=== PATIENT | female | born 1970 | race Caucasian/White ===

== ENCOUNTER → 2019-02-03 13:36 | Outpatient (CLI) | payer MEDICAID, SELFPAY ==
[2019-02-03 12:23] VITALS: BMI 45.1
== END ==
PROVIDERS: Family Provider Internal Medicine; PCP Internal Medicine; Referring Provider Obstetrics & Gynecology; Visit Provider Obstetrics & Gynecology
DX: R52 Pain, unspecified (principal)
CPT/HCPCS: 87086; 87088

== ENCOUNTER → 2019-05-10 15:41 | Outpatient (CLI) | payer MEDICAID, SELFPAY ==
[2019-05-10 13:25] VITALS: BMI 45.1
== END ==
PROVIDERS: Family Provider Internal Medicine; PCP Internal Medicine; Referring Provider Obstetrics & Gynecology; Visit Provider Obstetrics & Gynecology
DX: L02.224 Furuncle of groin (principal)
CPT/HCPCS: 87070; 87077; 87186; 87205

== ENCOUNTER → 2019-06-30 13:37 | Outpatient (CLI) | payer MEDICAID, SELFPAY ==
[2019-06-30 11:44] VITALS: BMI 45.1
== END ==
PROVIDERS: Family Provider Internal Medicine; PCP Internal Medicine; Visit Provider Nurse Practitioner Women's Health
DX: N39.0 Urinary tract infection, site not specified (principal)
CPT/HCPCS: 87086; 87088

== ENCOUNTER 2019-07-28 11:22 | Emergency (ER) | payer MEDICAID, SELFPAY ==
[2019-06-30 11:44] VITALS: BMI 45.1
[2019-07-28 11:22] VITALS: BP 169/98; PULSE 101; RESP 16; TEMP 36.7; O2SAT 100; BMI 43.6
--- NOTE | 2019-07-28 11:43 | CT_ITS ---
STUDY: CT ABDOMEN AND PELVIS WITHOUT CONTRAST REASON FOR EXAM: Female, 49 years old. 10 day history of abdominal pain and diarrhea. RADIATION DOSAGE (If Supplied By Facility): CTDIvol = ( 30.22 ) mGy, DLP = ( 1464.69 ) mGycm TECHNIQUE: Transaxial images were obtained from the dome of the diaphragm to the symphysis pubis without oral contrast, and without intravenous contrast. Sagittal and coronal images were reconstructed. Individualized dose optimization techniques were used for this CT. COMPARISON: Comparison is made with prior study dated November 09, 2015. FINDINGS: The visualized lung bases are unremarkable. The visualized portions of the heart are within normal limits. Normal liver. The patient is status post cholecystectomy. Normal spleen. Normal pancreas. Normal bilateral adrenal glands. Normal right kidney. Normal left kidney. Normal visualized stomach. Normal small intestine. Normal colon. The patient is status post appendectomy. Normal abdominal aorta. Normal inferior vena cava. There is borderline retroperitoneal lymphadenopathy with enlarged nodes no greater than 10mm in the short axis diameter. Normal urinary bladder. There is absence of the uterus consistent with a prior hysterectomy. Normal abdominal wall. There are mild degenerative changes of the visualized lumbar spine. CT/Abdomen/Pelvis without Cont IMPRESSION: Status post appendectomy and cholecystectomy. No acute abnormality is seen. Electronically Signed: Artur Tong, at 13:10 EST , Service support ,
--- NOTE | 2019-07-28 11:43 | EKG12_ITS ---
Test Reason : ABD PAIN Blood Pressure : / mmHG Vent. Rate : 088 BPM Atrial Rate : 088 BPM P-R Int : 150 ms QRS Dur : 088 ms QT Int : 378 ms P-R-T Axes : 058 000 048 degrees QTc Int : 457 ms Normal sinus rhythm Normal ECG Confirmed by CELIA SUTTON, AXEL ([id number]), editor in chief JUSTICE DONALD ([id number]) on 08/02/2019 11:44:35 AM Referred By: ANGELA Confirmed By:FLAQUITO YANG MD
--- NOTE | 2019-07-28 11:46 | ED.VIS.GEN ---
History of Present Illness Chief Complaint: Abd Pain Informant: Patient Onset: Weeks Maximum Severity: Mild Narrative: Patient complains of epigastric pain intermittently for 2 weeks, she has had no nausea or vomiting no diarrhea no fever she has history of cholecystectomy, prior bladder sling 2 years ago, recently she is developed a harsh cough that is exacerbated epigastric pain and she presents for evaluation she has no other GI history specifically no history of hepatitis gastritis ulcers bowel blockages colitis UTI or kidney stones Past Medical History - Allergies and Home Meds Allergies/Adverse Reactions: Allergies Iodinated Contrast Media [Iodinated Contrast Media - IV Dye] Allergy (Verified 06/30/19 11:33) Anaphylaxis tabatha Allergy (Verified 06/30/19 11:33) Food Allergy Sulfa (Sulfonamide Antibiotics) Allergy (Verified 06/30/19 11:33) Itching venom-honey bee [bee venom (honey bee)] Allergy (Verified 06/30/19 11:33) Shortness of breath ofloxacin [From Floxin] Adverse Reaction (Verified 06/30/19 11:33) Other Primary Care Physician: Renee Giordano MD [Primary Care Provider] - Past Medical History: - Smoking Status: Current every day smoker Review of Systems ROS: - Fluids as above General: Denies: Chills, Fever, Sweats Eyes: Denies: Visual changes - bilaterally, Diplopia ENT: Denies: Rhinorrhea, Sore throat Cardiovascular: Denies: Chest pain, Palpitations Respiratory: Reports: Cough. Denies: Dyspnea, Dyspnea on exertion Gastrointestinal: Reports: Abdominal pain. Denies: Nausea, Vomiting, Diarrhea, Melena, Hematochezia Genitourinary: Denies: Dysuria, Hematuria, Frequency Musculoskeletal: Denies: Back pain, Extremity Pain Skin: Denies: Rash, Wounds Neurological: Denies: Headache, Weakness, Numbness Physical Exam Vital Signs/Narrative: Vital Signs Temp Pulse Resp BP Pulse Ox 07/28/19 11:22 98.1 F 101 H 16 169/98 H 100 General: Well nourished, Well developed, No Acute Distress Head: Normocephalic, Atraumatic Eyes: Perrl, EOMI ENT: Moist mucous membranes, No rhinorrhea Neck: Supple, Nontender Cardiovascular: Regular rate, Regular rhythm, No murmurs Respiratory: No distress, CTA bilaterally, Chest nontender Abdomen: Soft, Nontender, Nondistended, Normal bowel sounds, - - Is a nonspecific discomfort to the epigastric area of the abdomen is obese there is no rebound guarding organomegaly is apparent she has had this pain intermittently for 2 weeks and apparently is worse with the coughing spells she is currently not coughing her vitals and pulse ox's are normal Back: Nontender, Normal Inspection Extremities: Nontender, No edema Skin: Normal color, No rash Neurological: Alert, Oriented x3, Cranial nerves II-XII grossly intact, Normal Strength, Normal Sensation Psychological: Normal affect, Normal Mood Diagnostic/Tx/Re-eval - Medical Decision Making Given all of the above screening labs are obtained x-rays CT Patient's ED evaluation including labs UA CT abdomen pelvis chest x-ray all negative EKG showed sinus rhythm rate 88 no acute injury pattern appreciated In the above the patient she has had symptoms for some time at this time she is comfort discharge home follow with outpatient providers she will use Tylenol for her pain bland diet and return for change in symptoms she has no cough the ED will make sure she has an inhaler to use that should help her URI symptoms Stable home Impression epigastric pain for about 2 weeks etiology unclear, cough ED Disposition - Plan for ED Patient: Diagnosis: Abdominal pain Instructions: ABDOMINAL PAIN, Unknown Cause, (Female) Prescriptions: Albuterol Inhaler [Ventolin Hfa] 1 - 2 puff INHALATION Q4H PRN PRN #1 inhaler PRN Reason: Wheezing Prescription Printed Referrals: Renee Giordano MD [Primary Care Provider] -
[2019-07-28] MEDS: 0.9% Normal Saline 1,000 ML 1000 ML IV (12:20)
[2019-07-28] MEDS: morphine 8 MG/ML Syringe IV (12:21)
[2019-07-28] MEDS: Mag Hydrox/Al Hydrox/Simeth 30 ML UDC PO (12:21)
[2019-07-28] MEDS: Ondansetron 4 MG/2 ML Vial IV (12:22)
[2019-07-28 12:26] LABS: Bacteria 0 SEEN /hpf (None Seen); Mucous, Urine 0 SEEN /hpf (<or=2+); Red Blood Cells-Urine 0 SEEN /hpf (0-5)
[2019-07-28 12:30] LABS: Color, Urine Yellow (Yellow); Glucose, Dipstick Normal (Normal); Ketone-Dipstick Negative (Negative); Leukocyte Esterase-Dipstick 25 /ul (Negative); Nitrite-Dipstick Negative (Negative); Occult Blood-Urine Negative /ul (Negative); Protein-Dipstick Negative (Negative); Specific Gravity, Urine 1.005 (1.002-1.030); Urine Bilirubin Dipstick Negative (Negative); Urine Clarity Clear (Clear); Urine Urobilinogen Normal (Normal)
--- NOTE | 2019-07-28 12:30 | RAD_ITS ---
STUDY: X-RAY CHEST REASON FOR EXAM: Female, 49 years old. Persistent cough. TECHNIQUE: PA and lateral views of the chest. COMPARISON: Comparison is made with prior study dated November 09, 2015. FINDINGS: The lungs are clear and expanded. There is no demonstrated pleural abnormality. Normal size heart. Normal mediastinum and maria g. Normal visualized pulmonary arteries. There is atherosclerotic tortuosity of the aortic arch and descending thoracic aorta. There are diffuse degenerative changes of the visualized thoracic spine. Normal visualized ribs, clavicles, and shoulders. There is no demonstrated abnormality of the visualized soft tissue structures of the upper abdomen. RAD/Chest PA and Lateral IMPRESSION: No acute abnormality is seen. Electronically Signed: Artur Tong, at 13:01 EST , Service support ,
[2019-07-28 12:35] LABS: Absolute Lymphocyte Count 3.45 X10^3/uL (0.83-4.51); Absolute Neutrophil Count 5.8 X10^3/uL (2.0-7.7); Basophil# 0.05 X10^3/uL; Basophil% 0.5 % (0-1); Eosinophil# 0.29 X10^3/uL; Eosinophils% 2.7 % (0-5); Hematocrit 46.6 % (37-47); Hemoglobin 15.3 g/dL (12.0-15.0); Lymphocyte # 3.45 X10^3/ul (4.0); Lymphocyte % 32.3 % (19-41); Mean Corp Hgb Conc 32.8 g/dL (32-36); Mean Corpuscular Hgb 30.5 pg (27.0-32.0); Monocyte# 0.99 X10^3/uL; Monocyte% 9.3 % (0-10); NRBC Flagged by Analyzer 0 % (0-5); Neutrophil # 5.82 X10^3/uL (2.7-7.7); Neutrophil % 54.5 % (47-70); Platelet Count 340 K/mm3 (150-450); RBC Distribution Width SD 41.5 fl (35.1-43.9); Red Blood Count 5.01 M/mm3 (4.2-5.4); White Blood Count 10.7 K/mm3 (4.4-11.0)
[2019-07-28 12:44] LABS: Squamous Epithelial Cells - UA 0-5 SEEN /hpf (5-10); White Blood Cells 0-5 SEEN /hpf (0-5)
[2019-07-28 13:19] LABS: ALB/GLOB Ratio 0.9 RATIO (0.9-2.4); AST(SGOT) 21 U/L (15-37); Alanine Aminotransfer ALT/SGPT 29 U/L (13-56); Albumin, Serum 3.5 g/dL (3.2-5.0); Alkaline Phosphatase 159 U/L (45-117); Anion Gap 7 (5-15); BUN 9 mg/dL (7-18); BUN/Creat Ratio 13.2 RATIO (10-20); Calcium,Total 8.9 mg/dL (8.5-10.1); Chloride 106 mmol/L (98-107); Creatinine, Serum 0.68 mg/dL (0.55-1.02); EST Glomerular Filtration Rate 97 mL/min (>60); Est Glom Filt Rate - Afr Amer 118 mL/min (>60); Estimated Creatinine Clearance 86.42 ml/min; Globulin 4.1 g/dL (2.2-4.2); Glucose 92 mg/dL (74-106); Lipase 118 U/L (73-393); Potassium 4.4 mmol/L (3.5-5.1); Protein, Total 7.6 g/dL (6.4-8.2); Sodium Level 139 mmol/L (136-145)
== END 2019-07-28 14:14 | disposition home or self-care (01) ==
LOC: ED 11:42
PROVIDERS: Emergency Provider Emergency Medicine; Family Provider Internal Medicine; PCP Internal Medicine
DX: R10.13 Epigastric pain (principal); R05 Cough; F17.200 Nicotine dependence, unspecified, uncomplicated
CPT/HCPCS: 71046; 74176; 80053; 81001; 83690; 85025; 93005; 96361; 96374; 96375; 99284; J7030; A4216; J2405

== ENCOUNTER → 2020-05-30 13:03 | Outpatient (CLI) | payer MEDICAID, SELFPAY ==
[2020-05-30 09:02] VITALS: BMI 40.9
== END ==
PROVIDERS: PCP Internal Medicine; Visit Provider Nurse Practitioner Women's Health
DX: N89.8 Other specified noninflammatory disorders of vagina (principal)
CPT/HCPCS: 87070; 87205

== ENCOUNTER → 2023-05-15 | Outpatient (CLI) | payer MEDICAID, SELFPAY ==
--- NOTE | 2023-05-15 09:29 | US_ITS ---
STUDY: ULTRASOUND BREAST - RIGHT REASON FOR EXAM: Female, 53 years old. Palpable right axillary lump. TECHNIQUE: Axial and longitudinal images of the RIGHT breast were performed with a high resolution ultrasound transducer. # OF IMAGES: 5 COMPARISON: Comparison is made with prior mammogram done earlier today. FINDINGS: RIGHT Breast: The right axilla was examined with ultrasound. There is a 9 mm x 6 mm x 5 mm benign-appearing lymph node. US/Breast Limited Unilateral IMPRESSION: 9 mm x 6 mm x 5 mm benign appearing lymph node in the right axilla. ASSESSMENT CATEGORY: BIRADS Category 2: Benign. A letter regarding these results will be sent to the patient by the facility within 30 days. Electronically Signed: Artur Tong MD at 15:08 EDT ,
--- NOTE | 2023-05-15 09:29 | BI_ITS ---
MAMMOGRAPHY - BILATERAL DIAGNOSTIC REASON FOR EXAM: Female, 53 years old. Right axillary lump for many years. PERTINENT HISTORY: Non-contributory. TECHNIQUE: Digital bilateral breast tiffanie (3D mammographic acquisition) in the CC and MLO projections. 2-D mediolateral oblique (MLO) and craniocaudad (CC) views of both breasts were obtained. CAD: Full Field Digital Mammography with Computer Added Detection was performed. COMPARISON: Comparison is made with prior outside examination dated October 04, 2020. FINDINGS: Breast Composition: There are scattered areas of fibroglandular density. There are no dominant masses or suspicious calcifications. Small bilateral fat-containing axillary lymph nodes. No other significant abnormalities are identified. There has been no significant change since the prior study. BI/DIAG MAMM W/CAD, BILAT IMPRESSION: Stable bilateral diagnostic mammogram. With the patient''s history of a palpable lump in the right axillary region, correlation with ultrasound is recommended. ASSESSMENT CATEGORY: BIRADS Category 0: Incomplete. Need additional imaging evaluation. A letter regarding these results will be sent to the patient by the facility within 30 days. Approximately 10% of breast cancers are not detected by mammography. A normal mammogram should not delay biopsy of a clinically suspicious abnormality. Electronically Signed: Artur Tong MD at 10:42 EDT ,
== END | disposition home or self-care (01) ==
PROVIDERS: PCP Internal Medicine; Referring Provider Advanced Practice Midwife; Visit Provider Advanced Practice Midwife
DX: N63.10 Unspecified lump in the right breast, unspecified quadrant (principal)
CPT/HCPCS: 77062; 76642; 77066; G0279

== ENCOUNTER → 2023-06-20 | Outpatient (CLI) | payer MEDICAID, SELFPAY | END | disposition home or self-care (01) | LOC: LABSPEC 13:21 | PROVIDERS: PCP Internal Medicine; Visit Provider Obstetrics & Gynecology | DX: N89.8 Other specified noninflammatory disorders of vagina (principal) | CPT/HCPCS: 87070; 87205 ==

== ENCOUNTER 2024-04-06 17:09 | Emergency (ER) | payer MEDICAID, SELFPAY ==
[2024-04-06 17:10] VITALS: BP 139/88; PULSE 93; RESP 17; TEMP 36.1; O2SAT 96; BMI 47.7
--- NOTE | 2024-04-06 17:44 | ED.VIS.LOWEX ---
HPI History of Present Illness HPI Narrative: Patient presents with injury to her right knee and right ankle that occurred yesterday. Patient states she twisted her knee and began to fall. Patient states she inverted her right ankle. Patient states she was able to catch herself before she fell. Patient states she had x-rays done yesterday which were negative. Patient states that today she noted some numbness and tingling to her third, fourth, and fifth toes. Patient states she contacted her primary care physician who told her to come to the emergency department for this. Patient denies any new trauma or injury. Patient does admit to some swelling over her right knee and right ankle. Chief Complaint: Lower Extremity Injury Informant: patient Occured/Mechanism Comment: Twisted right knee and inverted right ankle Onset/Context/Timing Onset: Yesterday Context: Sudden Onset Timing: Continuous Quality of Pain: Sharp and Throbbing Worsened by: Movement Relieved by: Nothing Associated Symptoms Associated Symptoms: Positive for Parasthesia; Negative for Weakness or Loss of [facility]ion [facility] History Bipolar 1 disorder Arthritis Asthma Migraines Home Medications ?Medication ?Instructions ?Recorded ?Last Taken ?Type albuterol sulfate 90 mcg/actuation 1 - 2 puff inhalation Q4H PRN PRN 05/26/15 Unknown History aerosol inhaler Sob &/Or Wheezing alprazolam 0.5 mg tablet 0.5 mg PO BID PRN PRN Anxiety 05/26/15 06/01/15 05:00 History lansoprazole 30 mg capsule,delayed 30 mg PO DAILY 05/26/15 06/01/15 05:00 History release montelukast 10 mg tablet 10 mg PO DAILY 05/26/15 Unknown History sumatriptan succinate 50 mg tablet 50 mg PO PRN PRN MIGRAINES 05/26/15 Unknown History dicyclomine 10 mg capsule 10 mg PO . Q4-6H PRN Abdominal 11/09/15 Unknown Rx Pain #20 caps ondansetron HCl 8 mg tablet 8 mg PO Q8H PRN PRN Nausea #15 tabs 11/09/15 Unknown Rx zolpidem 10 mg tablet (Ambien) 10 mg PO QHS 02/03/19 Unknown History carbamazepine 200 mg 200 mg PO DAILY 07/28/19 Unknown History capsule,extended release [id number] cyclobenzaprine 10 mg tablet 10 mg PO TID PRN PRN Muscle Spasm 07/28/19 Unknown History loratadine-pseudoephedrine ER 10 1 tab PO DAILY 07/28/19 Unknown History mg-240 mg tablet,extended [id number] naratriptan 2.5 mg tablet 2.5 mg PO X1 PRN Migraine Symptoms 07/28/19 Unknown History clotrimazole-betamethasone 1 1 applic topical BID 2 weeks #45 05/30/20 Unknown Rx %-0.05 % topical cream grams vszkmebrvl-jkcefluslgliz-enviwmzf 1 tab PO Q4H PRN PRN MIGRAINES 09/27/20 Unknown History 50 mg-325 mg-40 mg tablet fremanezumab-vfrm 225 mg/1.5 mL 225 mg subcut QMONTH 09/27/20 Unknown History subcutaneous auto-injector (Ajovy) nystatin 100,000 unit/gram topical 1 applic topical DAILY #30 grams 04/17/23 Unknown Rx powder conjugated estrogens 0.625 mg/gram 0.625 mg vaginal DAILY #30 grams 06/20/23 Unknown Rx vaginal cream (Premarin) Allergy/AdvReac Type Severity Reaction Status Date / Time Iodinated Contrast Media Allergy Anaphylaxis Verified 04/06/24 17:10 (Iodinated Contrast Media - IV Dye) tabatha Allergy Food Verified 04/06/24 17:10 Allergy Sulfa (Sulfonamide Allergy Itching Verified 04/06/24 17:10 Antibiotics) venom-honey bee (bee venom Allergy Shortness Verified 04/06/24 17:10 (honey bee)) of breath ofloxacin (From Floxin) AdvReac Other Verified 04/06/24 17:10 Family History Grandmother Cancer Heart disease Mother CVA (cerebral vascular accident) Bowel cancer Brother Crohns disease Asthma Surgical History History of carpal tunnel surgery of right wrist bladder sling H/O hernia repair History of cholecystectomy History of LAVH History of tonsillectomy Social History Smoking Status: Current every day smoker tobacco type: cigarettes alcohol intake: current substance use type: marijuana caffeine: Yes what type of physical activity do you participate in: none seatbelt use: always do you feel safe at home: Yes additional social history: Alex- [employer] 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 ROS ED Constitutional Constitutional ED: Denies chills or fever(s) Eyes Eyes: Denies blurry vision or change in vision ENT ENT ED: Denies rhinorrhea or sore throat Cardiovascular Cardiovascular: Denies chest pain or palpitations Respiratory/Chest Respiratory/Chest: Denies cough or dyspnea Gastrointestinal Gastrointestinal: Reports nausea and vomiting Genitourinary Genitourinary ED: Denies dysuria or hematuria Musculoskeletal Musculoskeletal: Reports back pain and neck pain Integumentary Denies abscess or rash Neurologic Neurologic: Reports headache(s) and paresthesias RLE (Third, fourth, and fifth toes); Denies weakness Allergic/Immunologic Allergic/Immunologic ED: Denies mouth swelling or urticaria EXAM Physical Exam Const Vital Signs: 04/06/24 17:10 Temperature 97 F L Temperature Source Temporal Pulse Rate 93 Respiratory Rate 17 Blood Pressure 139/88 H Blood Pressure Mean 105 Pulse Ox 96 Oxygen Delivery Method Room Air Positive well nourished and well developed General Appearance ED: well developed and NAD HEENT Reports moist mucous membranes Neck full ROM and supple Extremity Extremity Narrative: There is tenderness over the lateral aspect of the right knee and right ankle. There is some mild edema. There is no deformity noted. Range of motion was slightly limited in all motions of the right knee and right ankle secondary to pain. Pedal pulses are equal bilaterally. Sensation was slightly decreased to light touch in the third, fourth, fifth toes. Capillary refills less than 2 seconds in all digits. Strength is 5/5 in flexion extension of all digits. Neuro oriented x3, CN's II-XII intact bilaterally, moves all extremities and no sensory deficits noted Sensorium / Orientation: alert Motor Exam: strength 5/5 throughout Psych mental status grossly normal MDM MDM MDM Narrative Medical decision making narrative: Differential diagnosis includes neuropathy from swelling, electrolyte abnormality, anemia, and paresthesias. CBC will be obtained to assess for leukocytosis and anemia. Basic metabolic profile will be obtained to assess for electrolyte abnormality and renal function. Lab Data Attestation: I reviewed the patient's lab results. Lab results narrative: CBC was reviewed. There is a mild leukocytosis of 15.1. The remainder is within normal limits. Basic metabolic profile was reviewed and was within normal limits. Labs: Laboratory Results - last 24 hr 04/06/24 18:26 WBC 15.1 H RBC 4.80 Hgb 14.3 Hct 44.0 MCV 91.7 MCH 29.8 MCHC 32.5 RDW Std Deviation 43.7 RDW Coeff of Maribel 12.9 Plt Count 334 MPV 8.4 Immature Gran % (Auto) 0.500 Neut % (Auto) 61.2 Lymph % (Auto) 28.8 Larue % (Auto) 6.7 Eos % (Auto) 2.4 Baso % (Auto) 0.4 Absolute Neuts (auto) 9.2 H Absolute Lymphs (auto) 4.34 Nucleated RBC % 0 Sodium 139 Potassium 4.1 Chloride 105 Carbon Dioxide 29.0 Anion Gap 5 BUN 12 Creatinine 0.89 Estim Creat Clear Calc 95.03 Est GFR (MDRD) Af Amer 85 Est GFR (MDRD) Non-Af 70 BUN/Creatinine Ratio 13.5 Glucose 95 Calcium 9.2 Treatment and Re-Evaluation Narrative: Patient was advised of her findings. Patient was advised that her paresthesias are most likely from the swelling and bruising. Patient was instructed to ice and elevate her right foot. Patient was instructed to follow-up with her primary care physician in 5 to 7 days for further evaluation. Patient understood and was agreeable with the plan. All questions were answered. Discharge Plan Triage Chief Complaint: Lower Extremity Injury ED Provider: Ford Lund Dx/Rx/DC Orders Clinical Impression: Paresthesias, Right ankle sprain, Right knee sprain Instructions: ED Paraesthesias Prescriptions: No Action zolpidem [Ambien] 10 mg tablet 10 mg PO QHS clotrimazole-betamethasone 1-0.05 % cream 1 applic TOPICAL BID 14 Days Qty: 45 1RF Ajovy Autoinjector 225 mg/1.5 mL auto-injector 225 mg SC QMONTH Premarin 0.625 mg/gram cream 0.625 mg vaginal DAILY Qty: 30 6RF Rx Instructions: apply a thin layer under urethra 2 to 3 times a week. nystatin 100,000 unit/gram powder 1 applic topical DAILY Qty: 30 0RF alprazolam 0.5 MG tablet 0.5 mg PO BID PRN PRN (Reason: Anxiety) Patient Comments: anxiety lansoprazole 30 MG capsule 30 mg PO DAILY Patient Comments: gerd montelukast 10 MG tablet 10 mg PO DAILY Patient Comments: allergies albuterol sulfate 1 INHALER inhaler 1 - 2 puff INHALATION Q4H PRN PRN (Reason: Sob &/Or Wheezing) Patient Comments: breathing sumatriptan succinate 50 MG tablet 50 mg PO PRN PRN (Reason: MIGRAINES) Patient Comments: MIGRAINES gsvuyhhtop-qaregsexnlzlt-fupl 50-325-40 mg tablet 1 tab PO Q4H PRN PRN (Reason: MIGRAINES) Patient Comments: MIGRAINES ondansetron HCl 8 MG tablet 8 mg PO Q8H PRN PRN (Reason: Nausea) Qty: 15 0RF dicyclomine 10 MG capsule 10 mg PO . Q4-6H PRN (Reason: Abdominal Pain) Qty: 20 0RF cyclobenzaprine 10 MG tablet 10 mg PO TID PRN PRN (Reason: Muscle Spasm) loratadine-pseudoephedrine 0 tablet 1 tab PO DAILY naratriptan 2.5 MG tablet 2.5 mg PO X1 PRN (Reason: Migraine Symptoms) carbamazepine 200 MG capsule, ER multiphase 12 hr 200 mg PO DAILY Primary Care Provider: Renee Giordano Referrals: Renee Giordano MD [Primary Care Provider] - 5-7 Days Print Language: Singaporean Disposition Disposition: Home, Self Care
[2024-04-06 18:37] LABS: Absolute Lymphocyte Count 4.34 X10^3/uL (0.83-4.51); Absolute Neutrophil Count 9.2 X10^3/uL (2.0-7.7); Basophil# 0.06 X10^3/uL; Basophil% 0.4 % (0-1); Eosinophil# 0.36 X10^3/uL; Eosinophils% 2.4 % (0-5); Hemoglobin 14.3 g/dL (12.0-15.0); Lymphocyte # 4.34 X10^3/ul (0.83-4.51); Lymphocyte % 28.8 % (19-41); Mean Corp Hgb Conc 32.5 g/dL (32-36); Mean Corpuscular Hgb 29.8 pg (27.0-32.0); Mean Corpuscular Volume 91.7 fL (81-99); Mean Platelet Vol. 8.4 fl (6.2-12.0); Monocyte# 1.01 X10^3/uL; Monocyte% 6.7 % (0-10); NRBC Flagged by Analyzer 0 % (0-5); Neutrophil # 9.24 X10^3/uL (2.7-7.7); Neutrophil % 61.2 % (47-70); POSITIVE MORPHOLOGY YES; Platelet Count 334 K/mm3 (150-450); RBC Distribution Width CV 12.9 % (11.6-14.6); RBC Distribution Width SD 43.7 fl (35.1-43.9); White Blood Count 15.1 K/mm3 (4.4-11.0)
[2024-04-06 18:39] LABS: Differential Indicated SCAN CRITERIA MET
[2024-04-06 18:58] LABS: Anion Gap 5 (5-15); BUN 12 mg/dL (7-18); BUN/Creat Ratio 13.5 RATIO (10-20); Calcium,Total 9.2 mg/dL (8.5-10.1); Chloride 105 mmol/L (98-107); Creatinine, Serum 0.89 mg/dL (0.55-1.02); EST Glomerular Filtration Rate 70 mL/min (>60); Est Glom Filt Rate - Afr Amer 85 mL/min (>60); Estimated Creatinine Clearance 95.03 ml/min; Glucose 95 mg/dL (74-106); Potassium 4.1 mmol/L (3.5-5.1); Sodium Level 139 mmol/L (136-145)
[2024-04-06 19:09] VITALS: BP 120/68
[2024-04-06 19:13] LABS: Differential Comment SCANNED
[2024-04-06 19:38] VITALS: BP 118/71; PULSE 74; RESP 18; TEMP 36.4; O2SAT 96
== END 2024-04-06 19:38 | disposition home or self-care (01) ==
PROVIDERS: Emergency Provider Emergency Medicine; PCP Internal Medicine; Visit Provider Emergency Medicine
DX: S93.401A Sprain of unspecified ligament of right ankle, initial encounter (principal); F31.9 Bipolar disorder, unspecified; S83.91XA Sprain of unspecified site of right knee, initial encounter; F12.90 Cannabis use, unspecified, uncomplicated; F17.210 Nicotine dependence, cigarettes, uncomplicated; R20.2 Paresthesia of skin; X58.XXXA Exposure to other specified factors, initial encounter
CPT/HCPCS: 80048; 85025; 99282; A4216

== ENCOUNTER → 2024-04-28 | Outpatient (CLI) | payer MEDICAID, SELFPAY | END | disposition home or self-care (01) | PROVIDERS: PCP Internal Medicine; Referring Provider Nurse Practitioner Family; Visit Provider Nurse Practitioner Family | DX: B37.2 Candidiasis of skin and nail (principal) | CPT/HCPCS: 87070; 87205 ==

== ENCOUNTER 2024-06-05 11:23 | Emergency (ER) | payer MEDICAID, SELFPAY ==
[2024-06-05 11:24] VITALS: BP 134/86; PULSE 89; RESP 18; TEMP 36.6; O2SAT 98; BMI 45.8
--- NOTE | 2024-06-05 11:29 | EX.ED.GENINJ ---
HPI History of Present Illness Chief Complaint: Nausea/Vomiting PFSH PFSH Medical History Bipolar 1 disorder Arthritis Asthma Migraines Home Medications ?Medication ?Instructions ?Recorded ?Last Taken ?Type albuterol sulfate 90 mcg/actuation 1 - 2 puff inhalation Q4H PRN PRN 05/26/15 Unknown History aerosol inhaler Sob &/Or Wheezing alprazolam 0.5 mg tablet 0.5 mg PO BID PRN PRN Anxiety 05/26/15 06/01/15 05:00 History lansoprazole 30 mg capsule,delayed 30 mg PO DAILY 05/26/15 06/01/15 05:00 History release montelukast 10 mg tablet 10 mg PO DAILY 05/26/15 Unknown History dicyclomine 10 mg capsule 10 mg PO . Q4-6H PRN Abdominal 11/09/15 Unknown Rx Pain #20 caps ondansetron HCl 8 mg tablet 8 mg PO Q8H PRN PRN Nausea #15 tabs 11/09/15 Unknown Rx zolpidem 10 mg tablet (Ambien) 10 mg PO QHS 02/03/19 Unknown History carbamazepine 200 mg 200 mg PO DAILY 07/28/19 Unknown History capsule,extended release [id number] cyclobenzaprine 10 mg tablet 10 mg PO TID PRN PRN Muscle Spasm 07/28/19 Unknown History loratadine-pseudoephedrine ER 10 1 tab PO DAILY 07/28/19 Unknown History mg-240 mg tablet,extended [id number] naratriptan 2.5 mg tablet 2.5 mg PO X1 PRN Migraine Symptoms 07/28/19 Unknown History upcuebwuot-trygvsxhlqsem-uzxgogmi 1 tab PO Q4H PRN PRN MIGRAINES 09/27/20 Unknown History 50 mg-325 mg-40 mg tablet fremanezumab-vfrm 225 mg/1.5 mL 225 mg subcut QMONTH 09/27/20 Unknown History subcutaneous auto-injector (Ajovy) estradiol 0.01% (0.1 mg/gram) See Rx Instructions vaginal DAILY 05/03/24 Unknown Rx vaginal cream #42.5 grams clotrimazole-betamethasone 1 1 applic topical BID 2 weeks #45 06/02/24 Unknown Rx %-0.05 % topical cream grams fluconazole 150 mg tablet 150 mg PO .COMPLEX #2 tabs 06/02/24 Unknown Rx Allergy/AdvReac Type Severity Reaction Status Date / Time Iodinated Contrast Media Allergy Anaphylaxis Verified 06/05/24 11:24 (Iodinated Contrast Media - IV Dye) tabatha Allergy Food Verified 06/05/24 11:24 Allergy Sulfa (Sulfonamide Allergy Itching Verified 06/05/24 11:24 Antibiotics) venom-honey bee (bee venom Allergy Shortness Verified 06/05/24 11:24 (honey bee)) of breath ofloxacin (From Floxin) AdvReac Other Verified 06/05/24 11:24 Family History Grandmother Cancer Heart disease Mother CVA (cerebral vascular accident) Bowel cancer Brother Crohns disease Asthma Surgical History History of carpal tunnel surgery of right wrist bladder sling H/O hernia repair History of cholecystectomy History of LAVH History of tonsillectomy Social History sexually active: Yes Smoking Status: Current every day smoker tobacco type: cigarettes alcohol intake: current substance use type: marijuana caffeine: Yes what type of physical activity do you participate in: none seatbelt use: always do you feel safe at home: Yes additional social history: Ester King Patient babysits EXAM Physical Exam Const Vital Signs: 06/05/24 11:24 Temperature 97.8 F Temperature Source Oral Pulse Rate 89 Respiratory Rate 18 Blood Pressure 134/86 H Blood Pressure Mean 102 Pulse Ox 98 Oxygen Delivery Method Room Air MDM MDM MDM Narrative Medical decision making narrative: HISTORY OF PRESENT ILLNESS: 54-year-old female presents with headache. Notes migraine that started 7 days ago. Notes she started 5 days ago. Patient denies sudden onset or thunderclap headache, denies maximal intensity within 1 minute, vomiting, neck pain, stiffness, changes in vision, fever, history malignancy, syncope, or seizures associated with headache. She also endorses mid abdominal pain and endorses history of gallbladder surgery. Notes she did drink alcohol 3 days ago despite having abdominal pain nausea and vomiting. No she had 1 drink with her child. Denies diarrhea or constipation. Denies melena or hematochezia. Does note increased urination and a dark color to her urine. She denies chest pain or shortness of breath. Denies focal weakness. Denies falls or other trauma. REVIEW OF SYSTEMS: Pertinent positives: Headache nausea vomiting Pertinent negatives: Focal weakness, neck pain fever recent sick contact PHYSICAL EXAM: Nursing triage notes reviewed, Vital signs reviewed Constitutional: please see mdm HENT: MMM Eyes: Pupils equal round and reactive to light, Extraocular muscles intact Neck: No stridor, no JVD, full neck ROM Lungs: Clear to auscultation, No wheezing or rales. No increased work of breathing, no conversational dyspnea, no accessory muscle use, no nasal flaring. No respiratory distress noted Heart: Regular rate and rhythm, No murmurs, No rubs and No gallops, 2+ distal pulses (radial, femoral, posterior tibial) in all extremities Abdomen: Soft, diffuse tenderness but no distention, rigidity, rebound or guarding, no obvious peritoneal signs, no palpable pulsatile abdominal masses, no auscultated abdominal bruit : No CVAT Extremities: No edema Neuro: Alert and oriented x3, neuro exam at baseline, cranial nerves II through XII are intact. No pain with extraocular muscle movement. There is negative test of skew. 5 of 5 strength in upper and lower extremities in flexion extension. Intact sensation to light touch in upper and lower extremity dermatomes. No truncal or extremity ataxia. No dysdiadochokinesia. Normal gait. 2+ reflexes in upper and lower extremities. No meningeal signs. Negative Babinski. NIH of 0. Skin: No rash or lesions noted MEDICAL DECISION MAKING: Chief Complaint: Headache, nausea vomiting External records reviewed: Prior imaging studies reviewed: Recent [facility] imaging of the brain Factors affecting care: Bipolar, GERD, Social determinants of health: History of mental health disorder History obtained from others: Spouse Consults: none [facility] Narrative: Patient is hemodynamically stable, afebrile and nontoxic-appearing. Neurologic exam nonfocal, abdominal exam with diffuse tenderness I considered the following differential diagnosis: ICH, migraine, pancreatitis, hepatobiliary pathology, perforation, obstruction, UTI I obtained a broad lab and imaging workup to further elucidate the etiology of the patient's complaints. I initially treated the patient symptoms with IV Reglan and Decadron. Withheld Toradol this time and lieu of CT scan result. I also obtain labs to assess the patient's abdominal complaints and also obtained a Noncon CT scan of the abdomen pelvis given patient's contrast allergy to assess for surgical pathology in the abdomen. ALL IMAGES (IF OBTAINED) HAVE BEEN PERSONALLY REVIEWED AND INTERPRETED BY MYSELF. EKG with normal sinus rhythm, normal axis, normal intervals, no STEMI CT scan of the brain showed no evidence of ICH CT scan abdomen pelvis no evidence of intra-abdominal pathology CBC with leukocytosis suggestive of systemic summation but no anemia or thrombocytopenia CMP without evidence of acute kidney injury, significant electrolyte abnormality, anion gap to suggest end organ hypo-perfusion, no evidence of metabolic acidosis with a normal bicarbonate, no evidence of hepatobiliary obstructive pathology. Lipase is wnl indicating no pancreatic inflammation. Urinalysis shows no evidence of urinary inflammation suggestive of UTI Repeat neurologic exam remained intact. Vital signs remained within normal limits. Given the patient's unremarkable lab and imaging workup do not suspect she is suffering from an acute life or limb threatening etiology specifically in the head or abdomen. The patient was able to tolerate p.o. after Compazine. Will give Compazine for home-going for headache and nausea relief. Discussed return precautions. Gave PCP follow-up instructions The patient and/or family, caregivers express understanding. The patient and/or family, caregivers agrees with the plan. Shared decision making: I will have a discussion with the patient and or visitors regarding risk/benefits of further testing or admission. They will be made aware of of the risk/benefits inherent in this decision they will be given the opportunity to voice understanding. Total critical care time today provided was at least 0 minutes. This excludes separately billable procedures. Critical care time (if documented) is secondary to the patient having high probability of clinically significant/life threatening deterioration in the patient's condition which required my urgent intervention. Impression: 1. Acute headache 2. Acute abdominal pain 3. Nausea vomiting 4. Dehydration Dispo: Discharge home This note was generated with [employer] dictation software. It may contain incorrect words, spelling, and punctuation that were not noted in review of the chart prior to signing. Discharge Plan Triage Chief Complaint: Nausea/Vomiting ED Provider: Otf Vasquez Dx/Rx/DC Orders Prescriptions: No Action zolpidem [Ambien] 10 mg tablet 10 mg PO QHS Ajovy Autoinjector 225 mg/1.5 mL auto-injector 225 mg SC QMONTH alprazolam 0.5 MG tablet 0.5 mg PO BID PRN PRN (Reason: Anxiety) Patient Comments: anxiety lansoprazole 30 MG capsule 30 mg PO DAILY Patient Comments: gerd montelukast 10 MG tablet 10 mg PO DAILY Patient Comments: allergies albuterol sulfate 1 INHALER inhaler 1 - 2 puff INHALATION Q4H PRN PRN (Reason: Sob &/Or Wheezing) Patient Comments: breathing djdijullna-txlmtpkviwlxf-ishl 50-325-40 mg tablet 1 tab PO Q4H PRN PRN (Reason: MIGRAINES) Patient Comments: MIGRAINES ondansetron HCl 8 MG tablet 8 mg PO Q8H PRN PRN (Reason: Nausea) Qty: 15 0RF dicyclomine 10 MG capsule 10 mg PO . Q4-6H PRN (Reason: Abdominal Pain) Qty: 20 0RF cyclobenzaprine 10 MG tablet 10 mg PO TID PRN PRN (Reason: Muscle Spasm) loratadine-pseudoephedrine 0 tablet 1 tab PO DAILY naratriptan 2.5 MG tablet 2.5 mg PO X1 PRN (Reason: Migraine Symptoms) carbamazepine 200 MG capsule, ER multiphase 12 hr 200 mg PO DAILY estradiol 0.01 % (0.1 mg/gram) cream See Rx Instructions vaginal DAILY Qty: 42.5 0RF Rx Instructions: pea sized amount using finger tip method every night x 2 weeks then 2-3 times a week there after. fluconazole 150 mg tablet 150 mg PO .COMPLEX Qty: 2 0RF Rx Instructions: 150 mg PO take one po now and repeat in 3 days clotrimazole-betamethasone 1-0.05 % cream 1 applic TOPICAL BID 14 Days Qty: 45 1RF Primary Care Provider: Renee Giordano Referrals: Renee Giordano MD [Primary Care Provider] - Print Language: Chinese
--- NOTE | 2024-06-05 11:42 | CT_ITS ---
STUDY: CT BRAIN WITHOUT CONTRAST REASON FOR EXAM: Female, 54 years old. Headache, nausea vomit RADIATION DOSAGE (If Supplied By Facility): CTDIvol = ( 44.99 ) mGy, DLP = ( 832.67 ) mGycm TECHNIQUE: Transaxial CT imaging of the brain was performed without administration of intravenous contrast material. Individualized dose optimization techniques were used for this CT. COMPARISON: No relevant priors. FINDINGS: Normal soft tissue structures. Normal calvarium. Normal size ventricles and extra-axial spaces for the patient''s age. Normal white matter tracts of the cerebral hemispheres. Normal basal ganglia and thalami. Normal brainstem. Normal cerebellum. There is no intracranial hemorrhage. There are no findings of an acute ischemic infarction. Normal visualized paranasal sinuses. CT/Brain/Head without Contrast IMPRESSION: Normal unenhanced CT scan of the brain. Electronically Signed: Surendra Marin MD at 13:46 EDT ,
--- NOTE | 2024-06-05 11:42 | EKG12_ITS ---
Test Reason : Blood Pressure : / mmHG Vent. Rate : 081 BPM Atrial Rate : 081 BPM P-R Int : 156 ms QRS Dur : 090 ms QT Int : 396 ms P-R-T Axes : 060 032 040 degrees QTc Int : 460 ms Normal sinus rhythm Normal ECG Confirmed by SMOOTH SUTTON, ZAHEER ([id number]), pictures editor JUSTICE DONALD ([id number]) on 06/07/2024 1:38:51 PM Referred By: Confirmed By:ZAHEER REBOLLAR MD
--- NOTE | 2024-06-05 11:42 | CT_ITS ---
STUDY: CT ABDOMEN AND PELVIS WITHOUT CONTRAST REASON FOR EXAM: Female, 54 years old. Diffuse abdominal pain RADIATION DOSAGE (If Supplied By Facility): CTDIvol = ( 24.18 ) mGy, DLP = ( 1183.9 ) mGycm TECHNIQUE: Transaxial images were obtained from the dome of the diaphragm to the symphysis pubis without oral contrast, and without intravenous contrast. Sagittal and coronal images were reconstructed. Individualized dose optimization techniques were used for this CT. COMPARISON: November 09, 2015 FINDINGS: The visualized lung bases are unremarkable. The visualized portions of the heart are within normal limits. There is hepatomegaly with diffuse hepatic enlargement. There are surgical clips in the gallbladder fossa consistent with a prior cholecystectomy. Normal spleen. Normal pancreas. Normal bilateral adrenal glands. Normal right kidney. Normal left kidney. Normal visualized stomach. Normal small intestine. Normal colon. The appendix is visualized and appears normal. Normal abdominal aorta. Normal inferior vena cava. Normal retroperitoneum. Normal urinary bladder. There is absence of the uterus consistent with a prior hysterectomy. There is no free fluid in the abdomen or pelvis. There is postoperative change of the abdominal wall. There is degenerative change of the spine. CT/Abdomen/Pelvis without Cont IMPRESSION: Hepatomegaly. Postoperative change. No obstruction. No hydronephrosis. Electronically Signed: Surendra Marin MD at 14:08 EDT ,
[2024-06-05] MEDS: Metoclopramide 10 MG/2 ML Vial 5 MG IV (11:51)
[2024-06-05] MEDS: dexAMETHasone 4 MG/ML Vial IV (11:52)
[2024-06-05 11:55] LABS: Hematocrit 45.5 % (37-47); Mean Corpuscular Hgb 30.2 pg (27.0-32.0); Mean Corpuscular Volume 91.5 fL (81-99); Mean Platelet Vol. 8.9 fl (6.2-12.0); Platelet Count 339 K/mm3 (150-450); RBC Distribution Width CV 13.2 % (11.6-14.6); RBC Distribution Width SD 44.6 fl (35.1-43.9); Red Blood Count 4.97 M/mm3 (4.2-5.4); White Blood Count 13.1 K/mm3 (4.4-11.0)
--- OUTSIDE RECORDS SUMMARY | 2024-06-05 12:18 | XMS RPT_ITS | CCD ---
Author Organization [facility] Care Team Providers Care Junior Designer Name Role Phone KEYSHAWN SUTTON, DR GALLAGHER Primary Care Physician Elliott Mahajan MD Primary Care Provider [facility], [place] Unavailable Elliott Mahajan MD Primary Care Provider [facility], [place] Unavailable Elliott Mahajan MD Primary Care Provider KEYSHAWN SUTTON, DR GALLAGHER Primary Care Physician Vishal DOUGHERTY, Deena Torres Unavailable Unavailable MARCOS COON Attending Unavailable ELLIOTT MAHAJAN Primary Care Unavailable HILDA EDWARDS Referring Unavailable KJ TOMLINSON Attending Unavailable ELLIOTT MAHAJAN Primary Care Unavailable ELLIOTT MAHAJAN Primary Care Unavailable KJ TOMLINSON Attending Unavailable ELLIOTT MAHAJAN, Primary Care Unavailable KJ TOMLINSON Attending Unavailable Elliott Mahajan MD Primary Care Provider KEYSHAWN SUTTON, DR GALLAGHER Primary Care Unavailable ARETHA VIDES MD Attending Unavailable KEYSHAWN SUTTON, DR GALLAGHER Primary Care Unavailable MAUREEN SUTTON, DR KHOA Lynn Consulting Sammy JI MD, ADAN Attending Unavailable KEYSHAWN SUTTON, DR GALLAGHER Primary Care Unavailable ARETHA VIDES MD Attending Unavailable KEYSHAWN SUTTON, DR GALLAGHER Primary Care Unavailable TRACI GONZALEZ DO Admitting Unavailable GABRIEL SUTTON, ANS Attending Unavailable KEYSHAWN SUTTON, DR GALLAGHER Consulting Unavailable HILDA EDWARDS Referring Unavailable ELLIOTT MAHAJAN Primary Care Unavailable ELLIOTT MAHAJAN Primary Care Unavailable AMERICO KHAN Referring Unavailable KHAN, AMERICO Attending Unavailable TALAMPAS, ELLIOTT D Primary Care Unavailable KHAN, AMERICO Referring Unavailable TALAMPAS, ELLIOTT D Primary Care Unavailable KHAN, AMERICO Attending Unavailable HILDA EDWARDS Attending Unavailable TALAMPAS, ELLIOTT D Primary Care Unavailable TALAMPAS, ELLIOTT D Primary Care Unavailable PASTORA GLYNN Referring Unavailable PASTORA GLYNN Attending Unavailable TALAMPAS, ELLIOTT D Primary Care Unavailable TALAMPAS, ELLIOTT D Attending Unavailable TALAMPAS, ELLIOTT D Primary Care Unavailable PASTORA GLYNN Attending Unavailable KHAN, AMERICO Referring Unavailable TALAMPAS, ELLIOTT D Primary Care Unavailable JERRYHILDA Referring Unavailable TALAMPAS, ELLIOTT D Primary Care Unavailable KHAN, AMERICO Referring Unavailable SURENDRA GRIGGS Attending Unavailable TALAMPAS, ELLIOTT D Primary Care Unavailable TALAMPAS, ELLIOTT D Primary Care Unavailable KHAN, AMERICO Referring Unavailable TALAMPAS, ELLIOTT D Primary Care Unavailable TALAMPAS, ELLIOTT D Attending Unavailable HILDA EDWARDS Attending Unavailable TALAMPAS, ELLIOTT D Primary Care Unavailable ADI ENRIQUEZ Referring Unavailable TALAMPAS, ELLIOTT D Primary Care Unavailable JERRY, HILDA T Referring Unavailable TALAMPAS, ELLIOTT D Primary Care Unavailable TALAMPAS, ELLIOTT D Primary Care Unavailable OLDERTRINH Referring Unavailable JERRY, HILDA T Referring Unavailable TALAMPAS, ELLIOTT D Primary Care Unavailable TALAMPAS, ELLIOTT D Primary Care Unavailable TRINH WAYNE Attending Unavailable SELF Referring Unavailable JERRYHILDA MADISON Attending Unavailable TALAMPAS, ELLIOTT D Primary Care Unavailable SELF Referring Unavailable TALAMPAS, ELLIOTT D Primary Care Unavailable KHAN, AMERICO Referring Unavailable Allergies Allergy Classification Reported Allergen(s) Allergy Type Date of Onset Reaction(s) Facility (4 sources) Contrast media; Translations: [iodinated radiocontrast agents] Drug allergy [facility] Work Phone: (4 sources) Morphine; Translations: [morphine] Drug Allergy Pruritus [facility] Work Phone: (20 sources) Ofloxacin; Translations: [ofloxacin] Drug Allergy 04-10-20 05 Rash [facility] Work Phone: (4 sources) Sulfonamides (Antibiotic); Translations: [sulfa drugs] Drug allergy [facility] Work Phone: (20 sources) Cephalexin; Translations: [CEPHALEXIN] Drug Allergy 11-10-19 15 Mental Status Change, Itching [facility] Work Phone: (20 sources) Ciprofloxacin Drug Allergy 03-29-20 10 Swelling, Itching [facility] Work Phone: (20 sources) Iodine; Translations: [IODINE] Drug Allergy 05-23-20 05 Anaphylaxis [facility] Work Phone: (20 sources) Sulfamethoxazole / Trimethoprim; Translations: [SULFAMETHOXAZOLE-TR IMETHOPRIM] Drug Allergy 10-19-19 11 GI Upset [facility] Work Phone: [phone] (20 sources) topiramate; Translations: [TOPIRAMATE] Drug Allergy 03-22-20 08 [facility] Work Phone: [phone] (20 sources) traMADol; Translations: [TRAMADOL HCL] Drug Allergy 08-09-20 14 Other: See Comments [facility] Work Phone: (20 sources) Bees; Translations: [BEES] Propensity to adverse reactions 05-23-20 05 [facility] Work Phone: (20 sources) Mangoes; Translations: [MANGOES] Propensity to adverse reactions 04-21-20 07 [facility] (20 sources) Other; Translations: [OTHER] Propensity to adverse reactions 03-24-20 09 [facility] Work Phone: [phone] (20 sources) Smoke; Translations: [SMOKE] Propensity to adverse reactions 06-11-20 07 Shortness of Breath [facility] (20 sources) cefdinir; Translations: [CEFDINIR] Drug Allergy 05-09-20 23 Itching [facility] Work Phone: [phone] Medications Current Medications Medication Drug Class(es) Dates Sig (Normalized) Sig (Original) Aimovig SureClick Autoinjector 140 mg/mL subcutaneous solution (1 source) Start: 03-30-2021 inject 1 dose by subcutaneous injection every month Aimovig SureClick Autoinjector 140 mg/mL subcutaneous solution Dose : 140 mg =, Subcutaneous, qmonth, # 1 mL, 0 Refill(s) Start Date: 03/30/21 Status: Ordered Ajovy Autoinjector 225 mg/1.5 mL subcutaneous solution (1 source) Start: 03-30-2021 inject 1 dose by subcutaneous injection once daily as needed for headache Ajovy Autoinjector 225 mg/1.5 mL subcutaneous solution Dose : 225 mg =, Subcutaneous, Daily, PRN Headache, 0 Refill(s) Start Date: 03/30/21 Status: Ordered [id number] 200 actuat albuterol 0.09 mg/actuat metered dose inhaler (20 sources) beta2-Adrenergic Agonist Start: 05-06-2023 End: 06-05-2023 take 2 puff(s) by inhalation every four hours as needed for wheezing ProAir HFA MDI (90 mcg/inh) inhalation aerosol 2 puff(s), Inhalation, q4h, PRN for wheezing, # 18 gram(s), 0 Refill(s), Pharmacy: [facility] #[id number], 162.6, cm, 05/03/23 18:40:00 EDT, Height, kg, 05/03/23 18:40:00 EDT, Dosing Weight Start Date: 05/06/23 Stop Date: 06/05/23 Status: Ordered Start: 02-06-2021 End: 12-15-2023 take 2 puff(s) by inhalation every four hours as needed albuterol HFA (VENTOLIN HFA) 90 mcg/actuation inhaler Inhale 2 Puffs as instructed every 4 hours as needed. 1 Each 12/15/2023 Active Start: 09-22-2019 End: 04-22-2021 albuterol (PROVENTIL) 2.5 mg /3 mL (0.083 %) nebulizer solution Indications: Mild persistent asthma without complication Use 3 mL via nebulizer four times daily as needed for Wheezing/Shortness of Breath. 120 mL 5 09/22/2019 04/22/2021 Discontinued Start: 02-05-2014 take 1 dose by inhal ation every four hours as needed for wheezing ProAir HFA MDI (90 mcg/inh) inhalation aerosol Dose = 2 puff(s), Inhalation, q4h, PRN for wheezing Start Date: 02/05/14 Status: Ordered Start: 02-05-2014 take 1 dose by inhal ation every four hours as needed for wheezing ProAir HFA MDI (90 mcg/inh) inhalation aerosol Dose = 2 puff(s), Inhalation, q4h, PRN for wheezing Start Date: 02/05/14 Status: Ordered Comment on above: Inhale 2 Puffs as in structed every 4 hours as needed. 120 actuat albuterol 0.1 mg/actuat / ipratropium bromide 0.02 mg/actuat inhalation spray (20 sources) Anticholinergic, beta2-Adrenergic Agonist Start: 05-17-20 End: 05-02-20 take 20-100 ug by inhalation four times daily as needed ipratropium 20 mcg-albuterol 100 mcg (COMBIVENT RESPIMAT) 20-100 mcg/actuation inhaler Indications: Mild intermittent asthma without complication Inhale 1 Puff as instructed four times daily as needed for wheezing/shortness of breath. 4 g 11 05/02/2023 Active Start: 02-06-2021 End: 05-17-2022 take 20-100 ug by inhalation four times daily as needed ipratropium 20 mcg-albuterol 100 mcg (COMBIVENT RESPIMAT) 20-100 mcg/actuation inhaler Indications: Mild intermittent asthma without complication Inhale 1 Puff as instructed four times daily as needed. 1 Inhaler 11 02/06/2021 05/17/2022 Discontinued Start: 02-05-2014 take 1 dose by inhal ation every four hours Combivent Respimat CFC free 20 mcg-100 mcg/inh inhalation aerosol Dose = 1 puff(s), Inhalation, q4h Start Date: 02/05/14 Status: Ordered Comment on above: Inhale 1 Puff as ins tructed four times daily as needed. Inhale 1 Puff as ins tructed four times daily as needed for wheezing/shortness of breath. ALPRAZolam 0.5 mg oral tablet (20 sources) Benzodiazepine Start: 4 End: take 1 tablet by mouth once daily as needed for anxiety ALPRAZolam (XANAX) 0.5 mg tablet Indications: Anxiety Take 1 tablet by mouth once daily as needed for anxiety for up to 30 days. 30 tablet 03/19/2024 04/18/2024 Active Start: 12-15-2023 End: 01-14-2024 take 1 tablet by mouth once daily as needed for anxiety ALPRAZolam (XANAX) 0.5 mg tablet Indications: Anxiety Take 1 tablet by mouth once daily as needed for anxiety for up to 30 days. 30 tablet 0 12/15/2023 01/14/2024 Active Start: 05-09-2023 End: 06-08-2023 take 1 tablet by mouth every twelve hours as needed for anxiety and anxiety ALPRAZolam (XANAX) 0.5 mg tablet Indications: Anxiety Take 1 tablet by mouth two times a day as needed for anxiety for up to 30 days. 60 tablet 05/09/2023 06/08/2023 Start: 04-11-2023 End: 04-18-2023 take 1 tablet by mouth every twelve hours as needed for anxiety and anxiety ALPRAZolam (XANAX) 0.5 mg tablet Indications: Anxiety Take 1 tablet by mouth twice daily as needed for up to 7 days. 14 tablet 0 04/11/2023 04/18/2023 Start: 08-27-2022 End: 02-15-2023 take 1 tablet by mouth every twelve hours as needed for anxiety and anxiety ALPRAZolam (XANAX) 0.5 mg tablet Indications: Anxiety Take 1 tablet by mouth twice daily as needed for up to 7 days. 14 tablet 0 02/08/2023 02/15/2023 Start: 08-08-2022 End: 08-15-2022 take 1 tablet by mouth every twelve hours as needed for anxiety and anxiety ALPRAZolam (XANAX) 0.5 mg tablet Indications: Anxiety Take 1 tablet by mouth twice daily as needed for up to 7 days. 14 tablet 0 08/08/2022 08/15/2022 Active Start: 10-17-2021 End: 10-24-2021 take 1 tablet by mouth every twelve hours as needed for anxiety and anxiety ALPRAZolam (XANAX) 0.5 mg tablet Indications: Anxiety Take 1 tablet by mouth twice daily as needed for up to 7 days. 14 tablet 0 10/17/2021 10/24/2021 Start: 09-22-2020 End: 03-13-2021 take 1 tablet by mouth once daily as needed for anxiety ALPRAZolam (XANAX) 0.25 mg tablet Indications: Anxiety Take 1 tablet by mouth once daily as needed for Anxiety for up to 180 days. 30 tablet 1 09/22/2020 03/13/2021 Discontinued Start: 05-26-2015 End: 10-15-2021 ALPRAZolam (XANAX) 0.5 mg ta blet Alprazolam Active 0.5 MG TWICE DAILY NEEDED May 26, 2015 9:56am 0 05/26/2015 10/15/2021 Discontinued Comment on above: Alprazolam Active 0. 5 MG TWICE DAILY NEEDED May 26, 2015 9:56am Take 1 tablet by faby twice daily as needed for up to 7 days. Take 1 tablet by faby two times a day as needed for anxiety for up to 30 days. benzonatate 200 mg oral capsule (20 sources) Non-narcotic Antitussive Start: 10-18-19 End: 12-31-19 take 1 capsule by mouth three times daily as needed Benzonatate 200 mg capsule Indications: Paroxysmal cough Take 1 capsule by mouth three times daily as needed. 30 capsule 12/31/2022 Active Comment on above: Take 1 capsule by mo [facility] three times daily as needed. bisacodyl 5 mg delayed release oral tablet (20 sources) Stimulant Laxative Start: 01-14-20 End: 09-15-19 take 1 tablet by mouth once daily as needed for constipation bisacodyl EC (DULCOLAX, BISACODYL,) 5 mg EC tablet Indications: Constipation, unspecified constipation type Take 1 tablet by mouth once daily as needed for constipation. 10 tablet 1 01/27/2023 Active Start: 12-25-2022 End: 01-11-2023 take 1 tablet by mouth once daily as needed for constipation bisacodyl EC (DULCOLAX, BISACODYL,) 5 mg EC tablet Indications: Constipation, unspecified constipation type Take 1 tablet by mouth once daily as needed for constipation. 20 tablet 0 12/25/2022 01/11/2023 Discontinued Comment on above: Take 1 tablet by faby once daily as needed for constipation. 12 hr carBAMazepine 200 mg extended release oral tablet (20 sources) Mood Stabilizer Start: take 1 dose by mouth twice daily Tegretol XR Dose : 200 mg =, Oral, BID, 0 Refill(s) Start Date: 05/03/23 Status: Ordered Start: 05-03-2023 take 1 dose by mouth twice daily Tegretol XR Dose : 100 mg =, Oral, BID, 0 Refill(s) Start Date: 05/03/23 Status: Ordered Start: 07-26-2021 End: 03-15-2024 take 1 tablet by mouth twice daily carBAMazepine XR (TEGRETOL XR) 100 mg 12 hr tablet take 1 tablet by mouth twice a day COMBINED WITH THE 200 MG DOSE 120 tablet 03/15/2024 Active Start: 07-26-2021 End: 03-15-2024 take 1 tablet by mouth twice daily carBAMazepine XR (TEGRETOL XR) 200 mg 12 hr tablet take 1 tablet by mouth twice a day COMBINED WITH THE 100 MG DOSE 120 tablet 03/15/2024 Active Start: 02-05-2021 End: 04-10-2021 take 1 tablet by mouth twice daily carBAMazepine XR (TEGRETOL XR) 200 mg 12 hr tablet Take 1 tablet by mouth twice daily. 60 tablet 2 02/05/2021 04/10/2021 Discontinued Comment on above: Take 1 tablet by faby twice daily. Combine with 200 mg twice daily for 300 mg twice daily dose. Take 1 tablet by faby twice daily. Add to 100 mg twice daily for 300 mg twice daily total dose. Take 1 tablet by faby two times a day. Combine with 200 mg twice daily for 300 mg twice daily dose. Take 1 tablet by faby two times a day. Add to 100 mg twice daily for 300 mg twice daily total dose. cholecalciferol 0.05 mg oral capsule (20 sources) Vitamin D Start: 08-19-19 End: 12-15-19 24 take 2 capsules by mouth once daily Cholecalciferol, Vitamin D3, 50 mcg (2,000 unit) cap Indications: Encounter for long-term current use of medication Take 2 capsules by mouth once daily. 60 capsule 11 12/15/2023 Active Comment on above: Take 2 capsules by m out once daily. Combivent Respimat CFC free 20 mcg-100 mcg/inh inhalation aerosol (1 source) Start: 02-06-20 take 1 dose by inhalation every four hours Combivent Respimat CFC free 20 mcg-100 mcg/inh inhalation aerosol Dose = 1 puff(s), Inhalation, q4h Start Date: 02/05/14 Status: Ordered CPAP/BIPAP/OTHER (20 sources) Start: 05-09-20 End: 09-23-19 CPAP/BIPAP/OTHER Indications: GABY (obstructive sleep apnea) Type .CPAPSettings into a note to see current settings/supplies/ DME information. 1 Each 05/09/2023 09/23/2050 Active Start: 05-09-2023 End: 09-23-2050 CPAP/BIPAP/OTHER Indications : GABY (obstructive sleep apnea) Type .CPAPSettings into a note to see current settings/supplies/DME information. 1 Each 0 05/09/2023 09/23/2050 Active Comment on above: Type .CPAPSettings i nto a note to see current settings/supplies/DME information. cyclobenzaprine hydrochloride 10 mg oral tablet (20 sources) Muscle Relaxant Start: 2023 take 1 tablet by mouth every eight hours as needed cyclobenzaprine (FLEXERIL) 10 mg tablet Take 1 tablet by mouth three times a day as needed. 30 tablet 5 03/19/2024 Active Start: 11-05-2022 End: 03-17-2024 take 1 tablet by mouth every eight hours as needed cyclobenzaprine (FLEXERIL) 10 mg tablet Take 1 tablet by mouth three times daily as needed. 30 tablet 5 11/05/2022 06/26/2023 Discontinued Start: 01-15-2021 End: 11-03-2022 take 1 tablet by mouth every eight hours as needed cyclobenzaprine (FLEXERIL) 10 mg tablet Take 1 tablet by mouth three times daily as needed. 30 tablet 5 08/26/2022 11/03/2022 Discontinued Comment on above: Take 1 tablet by faby th three times daily as needed. Take 1 tablet by faby th three times a day as needed. diclofenac sodium 0.01 mg/mg topical gel (20 sources) Nonsteroidal Anti-inflammatory Drug Start: 09-02-2022 End: 11-27-2023 diclofenac (VOLTAREN) 1 % topical gel Indications: Acute pain of right knee , Primary osteoarthritis of right knee apply topically to affected area as directed if needed 100 g 2 11/27/2023 Active Start: 09-06-2021 End: 09-02-2022 apply 4 g topically four times daily diclofenac (VOLTAREN) 1 % topical gel Indications: Acute pain of right knee , Primary osteoarthritis of right knee apply 4 grams to affected area four times a day as directed 100 g 2 12/21/2021 09/02/2022 Discontinued Start: 01-17-2021 End: 02-14-2021 apply 4 g topically four times daily diclofenac (VOLTAREN) 1 % topical gel Indications: Acute pain of right knee , Primary osteoarthritis of right knee apply 4 grams to affected area four times a day 100 g 2 01/17/2021 02/14/2021 Discontinued Comment on above: apply 4 grams to aff ected area four times a day as directed PRN apply topically as d irected if needed apply topically to a ffected area as directed if needed doxycycline hyclate 100 mg oral tablet (2 sources) Tetracycline-class Drug Start: 3 End: 3 take 1 tablet by mouth twice daily doxycycline (VIBRA-TABS) 100 mg tablet Indications: Pneumonia due to infectious organism, unspecified laterality, unspecified part of lung Take 1 tablet by mouth two times a day for 5 days. 10 tablet 0 05/09/2023 05/14/2023 Active Comment on above: Take 1 tablet by faby th two times a day for 5 days. Take 1 tablet by faby th twice daily for 5 days. [id number] 0.3 ml EPINEPHrine 1 mg/ml auto-injector (20 sources) alpha-Adrenergic Agonist, beta-Adrenergic Agonist, Catecholamine Start: 2 End: EPINEPHrine (EPIPEN) 0.3 mg/0.3 mL auto-injector Inject subcutaneously. use as directed if needed after insect bite 2 Each 1 03/25/2024 Active Start: 08-27-2021 End: 10-15-2021 EPINEPHrine (EPIPEN) 0.3 mg/ 0.3 mL auto-injector Inject subcutaneously. use as directed if needed after insect bite 2 Each 1 08/27/2021 10/15/2021 Discontinued Start: 01-15-2021 End: 05-02-2021 EPINEPHrine (EPIPEN) 0.3 mg/ 0.3 mL auto-injector Inject subcutaneously. use as directed if needed after insect bite 2 Each 1 01/15/2021 05/02/2021 Discontinued Comment on above: Inject subcutaneousl y. use as directed if needed after insect bite 1 ml erenumab-aooe 140 mg/ml auto-injector (12 sources) Start: End: inject 1 dose by subcutaneous injection every month Aimovig SureClick Autoinjector 140 mg/mL subcutaneous solution Dose : 140 mg =, Subcutaneous, qmonth, # 1 mL, 0 Refill(s) Start Date: 03/30/21 Status: Ordered Comment on above: Inject 1 mL subcutan eously once every month. estrogens, conjugated (senior care) 0.3 mg oral tablet (20 sources) Estrogen take 1 tablet by mouth three times weekly estrogens conjugated (PREMARIN) 0.3 mg tablet Take 0.3 mg by mouth. Taking 3 times per week. Prescribed by outside OB. Active Comment on above: Take 0.3 mg by mouth . Taking 3 times per week. Prescribed by outside OB. fluconazole 150 mg oral tablet (8 sources) Azole Antifungal Start: End: fluconazole (DIFLUCAN) 150 mg tablet Take 1 tablet by mouth one time only for 1 dose. Repeat in 3 days as needed. 2 tablet 06/02/2024 06/02/2024 Active Start: 04-16-2024 End: 04-16-2024 fluconazole (DIFLUCAN) 150 m g tablet Take 1 tablet by mouth one time only for 1 dose. Repeat in 3 days as needed. 2 tablet 04/16/2024 04/16/2024 Active Start: 12-05-2023 End: 12-05-2023 fluconazole (DIFLUCAN) 150 m g tablet Take 1 tablet by mouth one time only for 1 dose. Repeat in 3 days as needed. 2 tablet 0 12/05/2023 12/05/2023 Active Start: 05-21-2023 End: 05-21-2023 take 1 tablet by mouth once fluconazole (DIFLUCAN) 150 mg tablet Take 1 tablet by mouth one time only for 1 dose. 2 tablet 0 05/21/2023 05/21/2023 Start: 11-19-2022 End: 11-19-2022 fluconazole (DIFLUCAN) 150 m g tablet Take 1 tablet by mouth one time only for 1 dose. Repeat in 3 days as needed. 2 tablet 0 11/19/2022 11/19/2022 Active Start: 09-02-2022 End: 09-02-2022 fluconazole (DIFLUCAN) 150 m g tablet Take 1 tablet by mouth one time only for 1 dose. Repeat in 3 days as needed. 2 tablet 0 09/02/2022 09/02/2022 Start: 05-17-2022 End: 05-18-2022 take 1 tablet by mouth once daily fluconazole (DIFLUCAN) 150 mg tablet Indications: UTI symptoms Take 1 tablet by mouth once daily for 1 day. 1 tablet 0 05/17/2022 05/18/2022 Active Start: 10-17-2021 End: 10-18-2021 take 1 tablet by mouth once daily fluconazole (DIFLUCAN) 150 mg tablet Take 1 tablet by mouth once daily for 1 day. 1 tablet 0 10/17/2021 10/18/2021 Comment on above: Take 1 tablet by faby th once daily for 1 day. Take 1 tablet by faby th one time only for 1 dose. Repeat in 3 days as needed. Take 1 tablet by faby th one time only for 1 dose. 1.5 ml fremanezumab-vfrm 150 mg/ml auto-injector (20 sources) Start: End: inject 1.5 mL by subcutaneous injection every month fremanezumab-vfrm (AJOVY AUTOINJECTOR) 225 mg/1.5 mL auto-injector Indications: Chronic migraine without aura without status migrainosus, not intractable Inject 1.5 mL subcutaneously once every month. 1.5 mL 11 05/20/2024 05/20/2025 Active Start: 09-03-2022 End: 04-16-2024 inject 1.5 mL by subcutaneous injection every month fremanezumab-vfrm (AJOVY AUTOINJECTOR) 225 mg/1.5 mL auto-injector Indications: Chronic migraine without aura without status migrainosus, not intractable Inject 1.5 mL subcutaneously once every month. 1.5 mL 11 04/17/2023 04/16/2024 Start: 07-26-2021 End: 07-26-2022 inject 1.5 mL by subcutaneous injection every month fremanezumab-vfrm (AJOVY AUTOINJECTOR) 225 mg/1.5 mL auto-injector Inject 1.5 mL subcutaneously once every month. 1.5 mL 07/26/2021 07/26/2022 Active Start: 03-30-2021 inject 1 dose by sub cutaneous injection once daily as needed for headache Ajovy Autoinjector 225 mg/1.5 mL subcutaneous solution Dose : 225 mg =, Subcutaneous, Daily, PRN Headache, 0 Refill(s) Start Date: 03/30/21 Status: Ordered Start: 08-21-2020 End: 05-28-2021 inject 1.5 mL by subcutaneous injection every month fremanezumab-vfrm (AJOVY AUTOINJECTOR) 225 mg/1.5 mL auto-injector Inject 1.5 mL subcutaneously once every month. 1.5 mL 08/21/2020 05/28/2021 Discontinued (Cost of medication) Comment on above: Inject 1.5 mL subcut aneously once every month. hydroCHLOROthiazide 25 mg oral tablet (20 sources) Thiazide Diuretic Start : 01-16 take 1 tablet by mouth once daily as needed for edema hydroCHLOROthiazide (HYDRODIURIL, ESIDRIX) 25 mg tablet Indications: Swelling of lower extremity Take 1 tablet by mouth once daily as needed (fluid retention). 30 tablet 5 01/17/2020 Active Comment on above: Take 1 tablet by faby once daily as needed (fluid retention). hydrocortisone 10 mg/ml / neomycin 3.5 mg/ml / polymyxin b [id number] unt/ml otic solution (20 sources) Aminoglycoside Antibacterial, Polymyxin-class Antibacterial, Corticosteroid Start : 05-08 End: 12-14 icndgotm-pvmgukcqz-qbcrd cortisone (CORTISPORIN) otic solution Use 3 Drops in the ears four times daily. As directed 10 mL 12/15/2023 Active Comment on above: Use 3 Drops in the e ars four times daily. Use 3 Drops in the e ars four times daily. As directed ketorolac tromethamine 10 mg oral tablet (5 sources) Nonsteroidal Anti-inflammatory Drug, Cyclooxygenase Inhibitor Start : 06-02 End: 06-07 take 1 tablet by mouth three times daily keTORolac (TORADOL) 10 mg tablet Take 1 tablet by mouth three times a day for 5 days. 15 tablet 06/02/2024 06/07/2024 Active Start: 04-08-2024 End: 04-08-2024 keTORolac 60 mg injection (T oradol) Start: 04-08-2024 End: 04-08-2024 60 mg, INTRAMUSCULAR, ONCE, 1 dose, On Joya 04/08/24 at 1430, Ketorolac (Toradol) is indicated for the short-term (up to 5 days) management of moderately severe acute pain. Continuation of ketorolac (Toradol) beyond 5 days increases the risk of developing serious adverse events. Please verify the duration of therapy for ketorolac (Toradol)., If ordered PRN for pain, patient/guardian may elect to receive this medication for higher pain levels INSTEAD of the opioid, if preferred: Yes Start: 01-19-2024 keTORolac (TOR ADOL) 10 mg tablet 1 tab TID with food until headache free x 24 hours, or used for 5 days. 15 tablet 0 01/19/2024 Active lactobacillus acidophilus 460 mg oral capsule (20 sources) Start: 02-06-2021 End: 05-09-2023 take 1 capsule by mouth once daily Lactobacillus acidophilus (FLORAJEN ACIDOPHILUS) 20 billion cell capsule Take 1 capsule by mouth once daily. 30 capsule 11 05/09/2023 Active Comment on above: Take 1 capsule by [facility] once daily. lamoTRIgine 200 mg oral tablet (2 sources) Mood Stabilizer, Anti-epileptic Agent Start: 02-05-2014 Lamictal 200 mg oral tablet Dose : 200 mg = 1 tab(s), Oral, qAM Start Date: 02/05/14 Status: Ordered lansoprazole 30 mg delayed release oral capsule (20 sources) Proton Pump Inhibitor Start: 12-14-2022 End: 12-15-2023 take 1 capsule by mouth twice daily lansoprazole (PREVACID) 30 mg capsule Take 1 capsule by mouth two times a day. 60 capsule 5 12/15/2023 Active Start: 05-11-2021 End: 01-27-2023 take 1 capsule by mouth once daily before breakfast lansoprazole (PREVACID) 30 mg capsule Indications: Gastroesophageal reflux disease, unspecified whether esophagitis present Take 1 capsule by mouth daily before breakfast. 1/2 hr before meal. 30 capsule 11 05/17/2022 01/27/2023 Discontinued Start: 02-05-2014 Prevacid 15 mg oral delayed release capsule (NF) Dose : 15 mg = 1 cap(s), Oral, qDayAC, 0 Refill(s) Start Date: 02/05/14 Status: Ordered Comment on above: Take 1 capsule by mo [facility] daily before breakfast. 1/2 hr before meal. Take 1 capsule by mo [facility] twice daily. Take 1 capsule by mo [facility] two times a day. take 1 capsule by mo [facility] twice a day 24 hr loratadine 10 mg / pseudoephedrine sulfate 240 mg extended release oral tablet (20 sources) alpha-Adrenergic Agonist Start: 03-27-2021 End: 06-26-2023 take 1 tablet by mouth once daily loratadine-pseu doephedrine ER (LORATA-D) 10-240 mg Tb24 Take 1 tablet by mouth once daily. 30 tablet 11 06/27/2023 Active Start: 02-06-2021 End: 03-13-2021 take 1 tablet by mouth once daily loratadine-pseudoephedrine ER (LORATA-D) 10-240 mg Tb24 Take 1 tablet by mouth once daily. 30 tablet 11 02/06/2021 03/13/2021 Discontinued Comment on above: Take 1 tablet by [facility] once daily. meclizine hydrochloride 25 mg oral tablet (20 sources) Antiemetic Start : 06-07 End: 04-10 take 0.5-1 tablets by mouth every six hours for dizziness meclizine (ANTIVERT) 25 mg tab take 1/2 to 1 tablet by mouth every 6 hours if needed for dizziness 30 tablet 2 04/11/2023 Active Comment on above: take 1/2 to 1 tablet by mouth every 6 hours if needed for dizziness methylPREDNISolone (20 sources) Corticosteroid Start : 01-22 methylPREDNISolone (MEDROL, ANDRÉS,) 4 mg Dose-Pack Take as instructed on packaging. 21 tablet 01/23/2024 Active Start: 01-23-2024 methylPREDNISo lone (MEDROL, ANDRÉS,) 4 mg Dose-Pack Take as instructed on packaging. 21 tablet 0 01/23/2024 Active metroNIDAZOLE 500 mg oral tablet (1 source) Nitroimidazole Antimicrobial Start: 02-25-2023 End: 03-04-2023 take 1 tablet by mouth twice daily metroNIDAZOLE (FLAGYL) 500 mg tablet Indications: Bacterial vaginosis Take 1 tablet by mouth twice daily for 7 days. 14 tablet 0 02/25/2023 03/04/2023 Active Comment on above: Take 1 tablet by [facility] twice daily for 7 days. montelukast 10 mg oral tablet (20 sources) Leukotriene Receptor Antagonist Start: 03-07-2024 take 1 tablet by mouth once daily at bedtime montelukast (SINGULAIR) 10 mg tablet Take 1 tablet by mouth daily at bedtime. 30 tablet 03/07/2024 Active Start: 02-05-2014 End: 03-05-2024 take 1 tablet by mouth once daily at bedtime montelukast (SINGULAIR) 10 mg tablet Take 1 tablet by mouth daily at bedtime. 30 tablet 11 08/28/2020 08/27/2021 Discontinued Comment on above: Take 1 tablet by [facility] daily at bedtime. multivitamin (TAB-A-JESSICA) tablet (20 sources) Start: take 1 tablet by mouth once daily multivitamin (TAB-A-JESSICA) tablet Take 1 tablet by mouth once daily. 30 tablet 5 04/11/2023 Active Start: 08-27-2021 End: 04-10-2023 take 1 tablet by mouth once daily multivitamin (TAB-A-JESSICA) tablet Take 1 tablet by mouth once daily. 30 tablet 5 08/27/2021 04/10/2023 Discontinued Start: 08-27-2021 take 1 tablet by [facility] once daily multivitamin (TAB-A-JESSICA) tablet Take 1 tablet by mouth once daily. 30 tablet 5 08/27/2021 Active Start: 01-15-2021 End: 08-27-2021 take 1 tablet by mouth once daily multivitamin (TAB-A-JESSICA) tablet Take 1 tablet by mouth once daily. 30 tablet 5 01/15/2021 08/27/2021 Discontinued Comment on above: Take 1 tablet by [facility] once daily. nystatin 100 unt/mg / triamcinolone acetonide 0.001 mg/mg topical ointment (4 sources) Polyene Antifungal, Corticosteroid Start: 09-02-2022 End: 09-16-2022 nystatin-triamcinolone (MYCOLOG) ointment Apply 1 application to affected area twice daily for 14 days. Apply sparingly to perineum twice daily for irritation/infection. 15 g 0 09/02/2022 09/16/2022 Active Comment on above: Apply 1 application to affected area twice daily for 14 days. Apply sparingly to perineum twice daily for irritation/infection. ondansetron 4 mg disintegrating oral tablet (20 sources) Serotonin-3 Receptor Antagonist Start: 04-03-2024 End: 04-09-2024 Zofran 4 mg oral tablet Dose : 4 mg = 1 tab(s), Oral, q6h, PRN Nausea/Vomiting, # 20 tab(s), 0 Refill(s), 04/09/24 9:19:00 PM EDT Start Date: 04/03/24 Stop Date: 04/09/24 Status: Ordered Start: 08-30-2021 End: 04-06-2024 take 2-4 mg by mouth every six hours as needed ondansetron orally disintegrating (ZOFRAN ODT) 4 mg disintegrating tablet Take 0.5-1 tablets by mouth every 6 hours as needed for nausea/vomiting. 30 tablet 1 04/06/2024 Active Start: 09-04-2020 End: 02-12-2021 take 1 tablet by mouth every six hours as needed ondansetron orally disintegrating (ZOFRAN ODT) 4 mg disintegrating tablet Take 1 tablet by mouth every 6 hours as needed for Nausea/Vomiting. 30 tablet 09/04/2020 02/12/2021 Discontinued Start: 03-10-2020 End: 03-13-2020 Zofran 4 mg oral tablet Dose : 4 mg = 1 tab(s), Oral, q8h, PRN Nausea, # 10 tab(s), 0 Refill(s), Abdominal pain Start Date: 03/10/20 Stop Date: 03/13/20 Status: Ordered Start: 12-06-2018 End: 12-11-2018 Zofran 4 mg oral tablet Dose : 4 mg = 1 tab(s), Oral, q8h, # 15 tab(s), 0 Refill(s) Start Date: 12/06/18 Stop Date: 12/11/18 Status: Ordered Comment on above: Take 1 tablet by [facility] every 6 hours as needed for nausea/vomiting. polyethylene glycol 3350 00883 mg powder for oral solution (20 sources) Osmotic Laxative Start: 2022 polyethylene glycol 3350 17 gram/dose powder Indications: Constipation, unspecified constipation type Take 17 g by mouth once daily. Dissolve dose in 4 - 8 ounces of liquid and take as directed. 510 g 5 01/27/2023 Active Comment on above: Take 17 g by mouth o nce daily. Dissolve dose in 4 - 8 ounces of liquid and take as directed. polyethylene glycol 3350 962356 mg / potassium chloride 2970 mg / sodium bicarbonate 6740 mg / sodium chloride 5860 mg / sodium sulfate 78424 mg powder for oral solution (1 source) Osmotic Laxative Start: 2022 End: 2022 peg 3350-Electrolytes (GOLYTELY) 236-22.74-6.74 -5.86 gram suspension Indications: Abdominal pain, unspecified abdominal location Take 4,000 mL by mouth one time only for 1 dose. Refer to printed prep instructions from your provider. 4000 mL 0 12/14/2022 12/14/2022 Active Comment on above: Take 4,000 mL by [facility] one time only for 1 dose. Refer to printed prep instructions from your provider. prochlorperazine 10 mg oral tablet (2 sources) Phenothiazine Start: 2020 take 1 tablet by mouth three times daily Compazine use prochlorperazine Dose : 10 mg =, Oral, TID, # 12 tab(s), 0 Refill(s), Headache Start Date: 03/30/21 Status: Ordered promethazine hydrochloride 25 mg oral tablet (20 sources) Phenothiazine Start: 2013 End: 2023 take 1 tablet by mouth every six hours as needed for nausea promethazine (PHENERGAN) 25 mg tablet Indications: Pneumonia due to infectious organism, unspecified laterality, unspecified part of lung Take 1 tablet by mouth every 6 hours as needed for nausea/vomiting. 30 tablet 1 04/06/2024 Active Start: 02-05-2014 End: 01-27-2023 take 1 tablet by mouth every eight hours as needed promethazine (PHENERGAN) 25 mg tablet Indications: Migraine with aura and without status migrainosus, not intractable Take 1 tablet by mouth every 8 hours as needed. 42 tablet 11 02/17/2020 05/17/2022 Discontinued Comment on above: Take 1 tablet by [facility] every 8 hours as needed. Take 1 tablet by [facility] every 6 hours as needed for nausea/vomiting. terconazole 4 mg/ml vaginal cream (20 sources) Azole Antifungal Start: 10-14-2021 terconazole (TERAZOL 7) 0.4 % vaginal cream Use 1 Applicator vaginally daily at bedtime. 45 g 10/14/2021 Active Start: 02-06-2021 End: 08-27-2021 terconazole (TERAZOL 7) 0.4 % vaginal cream Use 1 Applicator vaginally daily at bedtime. 45 g 02/06/2021 08/27/2021 Discontinued Comment on above: Use 1 Applicator vag inally daily at bedtime. traMADol hydrochloride 50 mg oral tablet (11 sources) Opioid Agonist Start: End: take 1 tablet by mouth every eight hours as needed for pain traMADol (ULTRAM) 50 mg tablet Indications: Acute right ankle pain Take 1 tablet by mouth every 8 hours as needed for pain for up to 7 days. Patient has tolerated this in the past. 21 tablet 06/02/2024 06/09/2024 Active Start: 03-25-2024 End: 04-01-2024 take 1 tablet by mouth every eight hours as needed for pain traMADol (ULTRAM) 50 mg tablet Indications: Injury of finger of left hand, initial encounter Take 1 tablet by mouth every 8 hours as needed for pain for up to 7 days. for pain. 21 tablet 03/25/2024 04/01/2024 Start: 12-17-2022 End: 12-30-2022 take 1-2 tablets by mouth every eight hours as needed for pain traMADol (ULTRAM) 50 mg tablet Indications: Closed fracture of phalanx of left fifth toe, initial encounter Take 1-2 tablets by mouth every 8 hours as needed for up to 7 days. for pain. 42 tablet 0 12/17/2022 12/30/2022 Discontinued Comment on above: Take 1-2 tablets by mouth every 8 hours as needed for up to 7 days. for pain. triamcinolone acetonide 0.055 mg/actuat metered dose nasal spray (20 sources) Corticosteroid Start: 023 End: take 2 spray(s) by inhalation once daily as needed triamcinolone acetonide (NASACORT AQ) 55 mcg nasal inhaler Indications: Paroxysmal cough Use 2 Sprays in the nose once daily as needed. 16.9 mL 11 04/05/2024 Active Start: 02-06-2021 End: 11-03-2022 take 2 spray(s) by inhalation once daily as needed triamcinolone acetonide (NASACORT AQ) 55 mcg nasal inhaler Indications: Paroxysmal cough Use 2 Sprays in the nose once daily as needed. 1 Inhaler 5 02/06/2021 11/14/2021 Discontinued Comment on above: Use 2 Sprays in the nose once daily as needed. zolpidem tartrate 10 mg oral tablet (20 sources) gamma-Aminobutyric Acid-ergic Agonist Start: 01-31-2023 End: 09-15-2024 take 1 tablet by mouth once daily at bedtime zolpidem (AMBIEN) 10 mg Indications: Insomnia, unspecified type Take 1 tablet by mouth daily at bedtime for 180 days. 30 tablet 5 03/19/2024 09/15/2024 Active Start: 12-04-2022 End: 01-31-2023 take 1 tablet by mouth every 30 days at bedtime as needed zolpidem (AMBIEN) 10 mg Indications: Insomnia, unspecified type Take 1 tablet by mouth at bedtime as needed for up to 30 days. 30 tablet 0 12/04/2022 12/30/2022 Discontinued Start: 10-17-2021 End: 02-23-2023 take 1 tablet by mouth at bedtime as needed zolpidem (AMBIEN) 10 mg Indications: Insomnia, unspecified type Take 1 tablet by mouth at bedtime as needed for up to 180 days. 30 tablet 08/08/2022 08/26/2022 Discontinued Start: 09-04-2021 End: 10-15-2021 take 1 tablet by mouth at bedtime as needed zolpidem (AMBIEN) 10 mg Indications: Insomnia, unspecified type Take 1 tablet by mouth at bedtime as needed for up to 180 days. 30 tablet 0 09/04/2021 10/15/2021 Discontinued Start: 01-15-2021 End: 02-12-2021 take 1 tablet by mouth at bedtime as needed zolpidem (AMBIEN) 10 mg Indications: Insomnia, unspecified type Take 1 tablet by mouth at bedtime as needed for up to 180 days. 30 tablet 01/15/2021 02/12/2021 Discontinued Comment on above: Take 1 tablet by [facility] at bedtime as needed for up to 180 days. Take 1 tablet by [facility] at bedtime as needed for up to 180 days. Do not start before November 16, 2021. Take 1 tablet by [facility] at bedtime as needed for up to 30 days. Take 1 tablet by [facility] daily at bedtime for 120 days. Take 1 tablet by [facility] daily at bedtime for 90 days. Do not start before October 15, 2023. Completed/Discontinued Medications Medication Drug Class(es) Dates Sig (Normalized) Sig (Original) acetaminophen 325 mg / butalbital 50 mg / caffeine 40 mg oral tablet (20 sources) Barbiturate, Central Nervous System Stimulant, Methylxanthine Start: 04-15-2023 End: 07-20-2024 take 1 tablet by mouth every six hours for headache acetaminophen 325 mg-caffeine 40 mg-butalbital 50 mg (FIORICET) per tablet Indications: Chronic migraine without aura, with intractable migraine, so stated, with status migrainosus Take 1 tablet by mouth every 6 hours if needed for headache. No more than 5 days per month. 20 tablet 5 01/19/2024 06/01/2024 Discontinued Start: 02-06-2021 End: 04-10-2023 take 1 tablet by mouth every six hours for headache acetaminophen 325 mg-caffeine 40 mg-butalbital 50 mg (FIORICET) per tablet Indications: Chronic migraine without aura, with intractable migraine, so stated, with status migrainosus Take 1 tablet by mouth every 6 hours if needed for headache. No more than 5 days per month. 20 tablet 5 08/16/2022 04/10/2023 Discontinued Start: 02-05-2014 take 1 capsule by mo [facility] every four hours as needed for headache Fioricet oral capsule Dose = 1 cap(s), Oral, q4h, PRN as needed for headache Start Date: 02/05/14 Status: Ordered Comment on above: Take 1 tablet by [facility] every 6 hours if needed for headache. No more than 5 days per month. amoxicillin 875 mg / clavulanate 125 mg oral tablet (1 source) Penicillin-class Antibacterial Start: 10-15-19 End: 10-20-19 take 1 tablet by mouth twice daily amoxicillin-clavula ladan acid (AUGMENTIN) 875-125 mg per tablet Take 1 tablet by mouth twice daily for 5 days. 10 tablet 0 10/14/2021 10/19/2021 Comment on above: Take 1 tablet by [facility] twice daily for 5 days. Budesonide / formoterol (20 sources) Corticosteroid, beta2-Adrenergic Agonist Start: 07-09-20 End: 10-04-19 take 2 puff(s) by inhalation twice daily budesonide-formoter ol (SYMBICORT) 80-4.5 mcg/actuation inhaler Inhale 2 Puffs as instructed twice daily. 10.2 g 5 07/09/2021 10/04/2022 Discontinued Start: 07-09-2021 take 2 puff(s) by in halation twice daily budesonide-formoterol (SYMBICORT) 80-4.5 mcg/actuation inhaler Inhale 2 Puffs as instructed twice daily. 10.2 g 5 07/09/2021 Active Comment on above: Inhale 2 Puffs as in structed twice daily. chlorzoxazone 500 mg oral tablet (1 source) Muscle Relaxant Start: 08-25-19 End: 08-31-19 chlorzoxazone (PARAFON FORTE DSC) 500 mg tablet Take 1 tablet QID until 24 hours headache free or for a maximum of 5 days. 20 tablet 08/25/2020 08/31/2021 Discontinued (Course of therapy completed) cimetidine 400 mg oral tablet (20 sources) Histamine-2 Receptor Antagonist Start: 08-28-19 End: 06-19-20 23 take 1 tablet by mouth twice daily cimetidine (TAGAMET) 400 mg tablet Take 1 tablet by mouth twice daily. 60 tablet 11 08/28/2020 11/14/2021 Discontinued Comment on above: Take 1 tablet by [facility] twice daily. dexamethasone 4 mg oral tablet (5 sources) Corticosteroid Start: 04-17-20 End: 05-09-20 dexAMETHasone (DECADRON) 4 mg tablet Indications: Status migrainosus Take 1 tab tid on day 1, then bid on day 2, then once on day 3. 6 tablet 0 04/17/2023 05/09/2023 Discontinued Comment on above: Take 1 tab tid on da y 1, then bid on day 2, then once on day 3. enteric contrast (will be provided with radiology test) (1 source) Start: 04-21-20 End: 04-21-20 take 1 dose by mouth once, then take 1 dose by mouth once enteric contrast (will be provided with radiology test) Take 1 Each by mouth one time only for [address] ABD/PEL WO Routine order Administer, As Directed One Time Only, via Oral, Rectal, both Oral and Rectal, Enteric Tube, Stoma or Indwelling Catheter, Enteric Contrast as designated per enteric contrast guidelines 1 Each 04/21/2024 04/21/2024 etodolac 300 mg oral capsule (12 sources) Nonsteroidal Anti-inflammatory Drug Start: 05-17-20 End: 06-30-20 take 1 capsule by mouth every eight hours etodolac (LODINE) 300 mg capsule Indications: Acute pain of right knee , Acute right ankle pain Take 1 capsule by mouth every 8 hours. 90 capsule 05/17/2024 05/31/2024 Discontinued levoFLOXacin 500 mg oral tablet (3 sources) Quinolone Antimicrobial Start: 05-21-20 End: 05-31-20 take 1 tablet by mouth once daily levoFLOXacin (LEVAQUIN) 500 mg tablet Indications: Pneumonia due to infectious organism, unspecified laterality, unspecified part of lung Take 1 tablet by mouth once daily for 10 days. 10 tablet 05/21/2023 05/31/2023 Comment on above: Take 1 tablet by [facility] once daily for 10 days. meloxicam 15 mg oral tablet (20 sources) Nonsteroidal Anti-inflammatory Drug Start: 08-06-20 21 End: 04-06-20 24 take 1 tablet by mouth once daily meloxicam (MOBIC) 15 mg tablet Take 1 tablet by mouth once daily. 30 tablet 08/27/2022 09/02/2022 Discontinued (Course of therapy completed) Start: 11-20-2020 End: 03-13-2021 take 1 tablet by mouth once daily meloxicam (MOBIC) 15 mg tablet Take 1 tablet by mouth once daily. 30 tablet 2 11/20/2020 03/13/2021 Discontinued Comment on above: Take 1 tablet by [facility] once daily. take 1 tablet by [facility] once daily Take 1 tablet by [facility] once daily. Take with food. naproxen 500 mg oral tablet (11 sources) Nonsteroidal Anti-inflammatory Drug Start: End: take 1 tablet by mouth every twelve hours as needed naproxen (NAPROSYN) 500 mg tablet Take 1 tablet by mouth two times a day as needed (for pain/inflammation). Take with food.. Instead of Meloxicam 60 tablet 05/06/2024 05/17/2024 Discontinued (Changing Therapy/Dosage Form) naratriptan 2.5 mg oral tablet (20 sources) Serotonin-1b and Serotonin-1d Receptor Agonist Start: naratriptan 1 mg oral tablet Dose : 1 mg = 1 tab(s), Oral, qDay, PRN as needed for migraine headache, # 9 tab(s), 0 Refill(s) Start Date: 05/03/23 Status: Ordered Start: 02-05-2021 End: 06-01-2024 naratriptan (AMERGE) 2.5 mg tablet Take 1 tab at migraine onset. May repeat once in 2 hours if needed. 9 tablet 11 01/19/2024 06/01/2024 Discontinued Comment on above: Take 1 tab at migrai ne onset. May repeat once in 2 hours if needed. Give max allowed per insurance. Take 1 tab at migrai ne onset. May repeat once in 2 hours if needed. nicotine 4 mg chewing gum (20 sources) Cholinergic Nicotinic Agonist Start: 06-09-2023 End: 03-25-2024 nicotine polacrilex (NICORETTE) 4 mg gum Indications: Cigarette smoker Take 1 Each by mouth as needed. 50 Each 2 06/09/2023 03/25/2024 Discontinued Start: 11-11-2022 End: 04-17-2023 take 1 dose by mouth every two hours as needed nicotine polacrilex (NICORETTE) 2 mg gum Indications: Tobacco use Take 1 Each by mouth every 2 hours as needed. 100 Each 3 11/11/2022 04/17/2023 Discontinued Start: 08-27-2021 End: 11-11-2022 apply 1 dose transdermal route every twenty-four hours nicotine (NICODERM) 14 mg/24 hr Apply 1 Patch as directed every 24 hours. Use for 6 weeks, then decrease to 7mg daily. 21 Patch 1 10/16/2021 11/11/2022 Discontinued Start: 06-05-2021 End: 05-17-2022 take 1 dose by mouth once daily as needed nicotine polacrilex (NICORETTE) 4 mg gum Take 1 Each by mouth as needed. Max of 24 pieces per day. 50 Each 5 06/05/2021 05/17/2022 Discontinued (Other) Start: 05-28-2021 End: 10-16-2021 apply 1 dose transdermal route every twenty-four hours nicotine (NICODERM CQ) 7 mg/24 hr Apply 1 Patch as directed every 24 hours. Use AFTER completing 6 weeks of 14mg patch. 14 Patch 0 05/28/2021 10/16/2021 Discontinued Comment on above: Take 1 Each by mouth as needed. Max of 24 pieces per day. Apply 1 Patch as dir ected every 24 hours. Use for 6 weeks, then decrease to 7mg daily. Apply 1 Patch as dir ected every 24 hours. Use AFTER completing 6 weeks of 14mg patch. Take 1 Each by mouth every 2 hours as needed. Take 1 Each by mouth as needed. nitrofurantoin, macrocrystals 25 mg / nitrofurantoin, monohydrate 75 mg oral capsule (20 sources) Nitrofuran Antibacterial Start: 11-19-19 End: 02-26-20 23 take 1 capsule by mouth twice daily nitrofurantoin monohydrate and macrocrystal (MACROBID) 100 mg capsule Indications: Acute cystitis without hematuria Take 1 capsule by mouth twice daily. 14 capsule 0 11/18/2022 02/08/2023 Discontinued Start: 08-27-2022 End: 09-01-2022 take 1 capsule by mouth twice daily nitrofurantoin monohydrate and macrocrystal (MACROBID) 100 mg capsule Take 1 capsule by mouth twice daily for 5 days. 10 capsule 08/27/2022 09/01/2022 Start: 05-17-2022 End: 05-24-2022 take 1 capsule by mouth twice daily at mealtime nitrofurantoin monohydrate and macrocrystal (MACROBID) 100 mg capsule Indications: UTI symptoms Take 1 capsule by mouth twice daily with meals for 7 days. 14 capsule 0 05/17/2022 05/24/2022 Active Comment on above: Take 1 capsule by [facility] twice daily with meals for 7 days. Take 1 capsule by [facility] twice daily for 5 days. Take 1 capsule by [facility] twice daily. pantoprazole 40 mg delayed release oral tablet (1 source) Proton Pump Inhibitor Start: End: take 1 tablet by mouth once daily before breakfast pantoprazole DR (PROTONIX) 40 mg tablet take 1 tablet by mouth every morning 1/2 HOUR before BREAKFAST 30 tablet 11 08/28/2020 08/31/2021 Discontinued phenazopyridine hydrochloride 200 mg oral tablet (6 sources) Start: End: take 1 tablet by mouth three times daily at mealtime phenazopyridine (PYRIDIUM) 200 mg tablet Take 1 tablet by mouth three times daily with meals for 2 days. 6 tablet 0 04/11/2023 04/13/2023 Start: 03-12-2023 End: 2023 take 1 tablet by mouth three times daily at mealtime phenazopyridine (PYRIDIUM) 200 mg tablet Take 1 tablet by mouth three times daily with meals for 2 days. 6 tablet 0 03/12/2023 2023 Active Start: 11-09-2020 End: 04-22-2021 take 1 tablet by mouth every eight hours as needed phenazopyridine (PYRIDIUM) 200 mg tablet Take 1 tablet by mouth three times daily as needed. 6 tablet 11/09/2020 04/22/2021 Discontinued Comment on above: Take 1 tablet by [facility] three times daily with meals for 2 days. predniSONE 10 mg oral tablet (2 sources) Start: 05-07-2023 End: 05-13-2023 prednisone 10mg tab (TAPER) Taper 63-91-79-30-20-10 x 1 day, Oral, qAM, # 21 tab(s), 0 Refill(s), [facility]: [id number], 162.6, cm, 05/03/23 18:40:00 EDT, Height, kg, 05/03/23 18:40:00 EDT, Dosing Weight Start Date: 05/07/23 Stop Date: 05/13/23 Status: Ordered sucralfate 1000 mg oral tablet (20 sources) Aluminum Complex Start: 03-20-2023 End: 04-19-2023 take 1 tablet by mouth four times daily sucralfate (CARAFATE) 1 gram tablet Take 1 tablet by mouth four times daily. 120 tablet 0 03/20/2023 04/19/2023 Start: 08-30-2021 End: 12-17-2022 take 1 tablet by mouth three times daily before mealtime sucralfate (CARAFATE) 1 gram tablet Indications: Other gastritis without bleeding Take 1 tablet by mouth three times daily before meals. May dissolve 1 tab into ~ 2 tsp of water, drink as soon as dissolved. 90 tablet 3 08/30/2021 12/17/2022 Discontinued Comment on above: Take 1 tablet by [facility] three times daily before meals. May dissolve 1 tab into ~ 2 tsp of water, drink as soon as dissolved. Take 1 tablet by [facility]y [facility] four times daily. SUMAtriptan 100 mg oral tablet (15 sources) Serotonin-1b and Serotonin-1d Receptor Agonist Start: 4 End: 2 take 0.5-1 tablets by mouth every two hours SUMAtriptan (IMITREX) 100 mg tablet Indications: Migraine with aura and without status migrainosus, not intractable Take 1/2 to 1 Tablet By Mouth If needed At Onset Of Migraine And REpeat On Or After 2 Hours If needed 9 tablet 11 08/18/2020 11/14/2021 Discontinued Comment on above: Take 1/2 to 1 Tablet By Mouth If needed At Onset Of Migraine And REpeat On Or After 2 Hours If needed 24 hr divalproex sodium 500 mg extended release oral tablet (1 source) Mood Stabilizer, Anti-epileptic Agent Start: 1 End: 1 divalproex ER (DEPAKOTE ER) 500 mg 24 hr tablet 2 tabs QHS x 5 days. Then 1 tab QHS x 5 days. 15 tablet 08/17/2020 04/22/2021 Discontinued Problems Active Problems Problem Classification Problem Date Documented Da te Episodic/Chronic Anxiety disorders (20 sources) Anxiety; Translations: [Anxiety state] Onset: 7 02-04-2014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 (FIORICET) per tablet TAKE 1 TABLET BY MOUTH EVERY 6 HOURS NEEDED FOR HEADACHE. NO MORE THAN 5 DAYS PER MONTH - naratriptan (AMERGE) 2.5 mg tablet Take 1 tablet (2.5 mg) by mouth as needed. TAKE 1 TABLET BY MOUTH AT ONSET OF MIGRAINE AND MAY REPEAT ONCE IN 4 HOURS IF NEEDED - etodolac (LODINE) 300 mg capsule take 1 capsule by mouth every 8 hours - fremanezumab-vfrm (AJOVY AUTOINJECTOR) 225 mg/1.5 mL auto-injector Inject 1.5 mL subcutaneously once every month. - ondansetron orally disintegrating (ZOFRAN ODT) 4 mg disintegrating tablet Take 0.5-1 tablets by mouth every 6 hours as needed for nausea/vomiting. - promethazine (PHENERGAN) 25 mg tablet Take 1 tablet by mouth every 6 hours as needed for nausea/vomiting. - triamcinolone acetonide (NASACORT AQ) 55 mcg nasal inhaler Use 2 Sprays in the nose once daily as needed. - EPINEPHrine (EPIPEN) 0.3 mg/0.3 mL auto-injector Inject subcutaneously. use as directed if needed after insect bite - cyclobenzaprine (FLEXERIL) 10 mg tablet Take 1 tablet by mouth three times a day as needed. - zolpidem (AMBIEN) 10 mg Take 1 tablet by mouth daily at bedtime for 180 days. - carBAMazepine XR (TEGRETOL XR) 100 mg 12 hr tablet take 1 tablet by mouth twice a day COMBINED WITH THE 200 MG DOSE - carBAMazepine XR (TEGRETOL X (more content not included)... Normal [facility] 05-28-2024 [facility] Telephone (INTMWS) SKY ZAMUDIO ([id number]) 1970 F Date Time Provider Department 05/28/24 ELLIOTT MAHAJAN INTWS During your visit today, we recorded the following information about you: Syeda Barrett LPN 05/28/2024 10:24 AM Signed Pt called to report her right ankle which she had an injury 4 weeks ago and was told this was a sprain. Pt has been elevating, icing and putting voltaren gel on this. Pt reports she does have an ankle brace that she will try to see if this helps when she walks. The area is swollen pain level 7. Bruising appear recently. Pt asking if there is anything else she can do. Pt has been limping around on this. Please advise pt. SHAWNEE Armstrong Liza D, MD 05/28/2024 7:40 PM Signed Can refer to watch supervisor. Does she have a walking boot or gel cast? What kind of ankle brace? Radha Moore RN 05/29/2024 9:49 AM Signed Pt called and is notified of providers message and instructions. Pt voices understanding. She states she has one of the slip on Velcro ankle braces you can get at any local store. Pt denies having a walking boot or gel cast. Pt was asking if provider would send in some more Ultram, she states Americo Khan had sent some in for her. I told her it wouldn't be until Friday until someone would look at this. Pt reports she doesn't have much pain when sitting 2/10, but when walking 7/10 throbbing/aching and shoots sharp pain up her leg. She said she is doing PT on the ankle now and it is helping, so she doesn't think she needs the podiatry consult. FARHAT Singh Laurie Lynn, LPN 06/02/2024 11:24 AM Signed In addition to message below please review this also. Pt requesting medication for a yeast infection x 3 day. Completed a natural T for a boil she had. Pt requesting Diflucan. Please advise pt. SHAWNEE Armstrong Rosa, APRN.TIMBER [employer] 06/02/2024 12:43 PM Signed Short term tramadol and diflucan sent. Please advise her to follow up if issues/symptoms persist. Gely Miramontes LPN 06/02/2024 1:55 PM Signed PATIENT NOTIFIED OF SAME. Allergies As of Date: 05/28/2024 Noted Allergy Reaction BACTRIM (SULFAMETHOXAZOLE-TRIM ETH*10/18/2010 8 - GI Upset Comments: complained of stomach cramps though had tolerated in the past BEES 05/23/2005 FLOXIN (OFLOXACIN) 04/10/2005 Comments: interaction with valproic acid; caused bipolar exacerbation with depression ( bipolar low ) IVP DYE (IODINE) 05/23/2005 10 - Anaphylaxis KEFLEX (CEPHALEXIN) 11/09/2014 1 - Mental Status Change 9 - Itching Comments: bipolar low at same time; not sure if from med; no rash was associated MANGOES 04/21/2007 SMOKE 06/11/2007 12 - Shortness of Breath TOPAMAX (TOPIRAMATE) 03/22/2008 Comments: Dizziness ULTRAM (TRAMADOL HCL) 08/09/2014 14 - Other: See Comments Comments: Migraine headaches CEFDINIR 05/09/2023 9 - Itching Date Reviewed: 05/26/2024 Reviewed by: Sobia Real MA - Fully Assessed Reason for Visit: update on right ankle sprain [Other] Primary Visit Diagnosis:Acute right ankle pain [M25.571] Order(s):fluconazole (DIFLUCAN) 150 mg tabletTake 1 tablet by mouth one time only for 1 dose. Repeat in 3 days as needed.Disp: 2 tabletRfl: 0 traMADol (ULTRAM) 50 mg tabletTake 1 tablet by mouth every 8 hours as needed for pain for up to 7 days. Patient has tolerated this in the past.Disp: 21 tabletRfl: 0 Prescriptions as of 06/02/2024 - fluconazole (DIFLUCAN) 150 mg tablet Take 1 tablet by mouth one time only for 1 dose. Repeat in 3 days as needed. - traMADol (ULTRAM) 50 mg tablet Take 1 tablet by mouth every 8 hours as needed for pain for up to 7 days. Patient has tolerated this in the past. - acetaminophen 325 mg-caffeine 40 mg-butalbital 50 mg (FIORICET) per tablet TAKE 1 TABLET BY MOUTH EVERY 6 HOURS NEEDED FOR HEADACHE. NO MORE THAN 5 DAYS PER MONTH - naratriptan (AMERGE) 2.5 mg tablet Take 1 tablet (2.5 mg) by mouth as needed. TAKE 1 TABLET BY MOUTH AT ONSET OF MIGRAINE AND MAY REPEAT ONCE IN 4 HOURS IF NEEDED - etodolac (LODINE) 300 mg capsule take 1 capsule by mouth every 8 hours - fremanezumab-vfrm (AJOVY AUTOINJECTOR) 225 mg/1.5 mL auto-injector Inject 1.5 mL subcutaneously once every month. - ondansetron orally disintegrating (ZOFRAN ODT) 4 mg disintegrating tablet Take 0.5-1 tablets by mouth every 6 hours as needed for nausea/vomiting. - promethazine (PHENERGAN) 25 mg tablet Take 1 tablet by mouth every 6 hours as needed for nausea/vomiting. - triamcinolone acetonide (NASACORT AQ) 55 mcg nasal inhaler Use 2 Sprays in the nose once daily as needed. - EPINEPHrine (EPIPEN) 0.3 mg/0.3 mL auto-injector Inject subcutaneously. use as directed if needed after insect bite - cyclobenzaprine (FLEXERIL) 10 mg tablet Take 1 tablet by mouth three times a day as needed. - zolpidem (AMBIEN) 10 mg Take 1 tablet b (more content not included)... Normal [facility] No Panel Informationon 05-27 IMPRESSION: Findings are suggestive of hepatic steatosis or diffuse liver parenchymal disease. Status post cholecystectomy. Environmental Field Technician: KATHRYN Transcribe Date/Time: May 27 2024 2:13P Dictated by : LAURENCE FOOTE MD This examination was interpreted and the report reviewed and electronically signed by: LAURENCE FOOTE MD on May 27 2024 2:22PM [facility] DIVISION OF RADIOLOGY Radiology Study observation (narrative) [facility] No Panel InformationOrdered By: [facility] Provider on 05-27-2024 [facility] US ABD RIGHT UPPER QUADRANTo n 05-27-2024 US ABD RIGHT UPPER QUADRANT * * *Final Report* * * DATE OF EXAM: May 27 2024 11:24AM WRU 1032 - US ABD RIGHT UPPER QUADRANT / PROCEDURE REASON: multiple diagnoses * * * * Physician Interpretation * * * * EXAM TITLE: US ABD RIGHT UPPER QUADRANT, US ABD SPLEEN -NB HISTORY: Elevated alkaline phosphatase. TECHNIQUE: Sonography of the right upper quadrant and spleen was performed. Images were obtained and stored in a permanent archive. MQ: URUQ_1 COMPARISON: CT abdomen pelvis on 04/22/2024 RESULT: Limitations: Bowel gas and body habitus. Pancreas: Normal sonographic appearance. Portions obscured: tail Liver: Echotexture: Mildly heterogeneous Echogenicity: Increase in echogenicity and decrease in penetration. Surface contour: Smooth Lesions: None. MPV: Patent. Biliary: No intrahepatic biliary duct dilation. CBD: 5 mm in diameter. Gallbladder: Surgically absent. Kidneys: Within normal limits. Spleen: No splenomegaly or mass lesion identified. The spleen measures 9.9 cm in length. IMPRESSION: Findings are suggestive of hepatic steatosis or diffuse liver parenchymal disease. Status post cholecystectomy. Environmental Field Technician: KATHRYN Transcribe Date/Time: May 27 2024 2:13P Dictated by : LAURENCE FOOTE MD This examination was interpreted and the report reviewed and electronically signed by: LAURENCE FOOTE MD on May 27 2024 2:22PM EST [id number] Normal [facility] US ABD SPLEEN - NBon 024 * * *Final Report* * * DATE OF EXAM: May 27 2024 11:24AM WRU 1232 - US ABD SPLEEN -NB / PROCEDURE REASON: multiple diagnoses * * * * Physician Interpretation * * * * EXAM TITLE: US ABD RIGHT UPPER QUADRANT, US ABD SPLEEN -NB HISTORY: Elevated alkaline phosphatase. TECHNIQUE: Sonography of the right upper quadrant and spleen was performed. Images were obtained and stored in a permanent archive. MQ: URUQ_1 COMPARISON: CT abdomen pelvis on 04/22/2024 RESULT: Limitations: Bowel gas and body habitus. Pancreas: Normal sonographic appearance. Portions obscured: tail Liver: Echotexture: Mildly heterogeneous Echogenicity: Increase in echogenicity and decrease in penetration. Surface contour: Smooth Lesions: None. MPV: Patent. Biliary: No intrahepatic biliary duct dilation. CBD: 5 mm in diameter. Gallbladder: Surgically absent. Kidneys: Within normal limits. Spleen: No splenomegaly or mass lesion identified. The spleen measures 9.9 cm in length. DIVISION OF RADIOLOGY Provider, [facility] - 05/27/2024 * * *Final Report* * * DATE OF EXAM: May 27 2024 11:24AM WRU 1232 - US ABD SPLEEN -NB / PROCEDURE REASON: multiple diagnoses * * * * Physician Interpretation * * * * EXAM TITLE: US ABD RIGHT UPPER QUADRANT, US ABD SPLEEN -NB HISTORY: Elevated alkaline phosphatase. TECHNIQUE: Sonography of the right upper quadrant and spleen was performed. Images were obtained and stored in a permanent archive. MQ: URUQ_1 COMPARISON: CT abdomen pelvis on 04/22/2024 RESULT: Limitations: Bowel gas and body habitus. Pancreas: Normal sonographic appearance. Portions obscured: tail Liver: Echotexture: Mildly heterogeneous Echogenicity: Increase in echogenicity and decrease in penetration. Surface contour: Smooth Lesions: None. MPV: Patent. Biliary: No intrahepatic biliary duct dilation. CBD: 5 mm in diameter. Gallbladder: Surgically absent. Kidneys: Within normal limits. Spleen: No splenomegaly or mass lesion identified. The spleen measures 9.9 cm in length. IMPRESSION IMPRESSION: Findings are suggestive of hepatic steatosis or diffuse liver parenchymal disease. Status post cholecystectomy. Environmental Field Technician: KATHRYN Transcribe Date/Time: May 27 2024 2:13P Dictated by : LAURENCE FOOTE MD This examination was interpreted and the report reviewed and electronically signed by: LAURENCE FOOTE MD on May 27 2024 2:22PM EST [facility] US ABD SPLEEN -NBon 05-27-20 US ABD SPLEEN -NB * * *Final Report* * * DATE OF EXAM: May 27 2024 11:24AM WRU 1232 - US ABD SPLEEN -NB / PROCEDURE REASON: multiple diagnoses * * * * Physician Interpretation * * * * EXAM TITLE: US ABD RIGHT UPPER QUADRANT, US ABD SPLEEN -NB HISTORY: Elevated alkaline phosphatase. TECHNIQUE: Sonography of the right upper quadrant and spleen was performed. Images were obtained and stored in a permanent archive. MQ: URUQ_1 COMPARISON: CT abdomen pelvis on 04/22/2024 RESULT: Limitations: Bowel gas and body habitus. Pancreas: Normal sonographic appearance. Portions obscured: tail Liver: Echotexture: Mildly heterogeneous Echogenicity: Increase in echogenicity and decrease in penetration. Surface contour: Smooth Lesions: None. MPV: Patent. Biliary: No intrahepatic biliary duct dilation. CBD: 5 mm in diameter. Gallbladder: Surgically absent. Kidneys: Within normal limits. Spleen: No splenomegaly or mass lesion identified. The spleen measures 9.9 cm in length. IMPRESSION: Findings are suggestive of hepatic steatosis or diffuse liver parenchymal disease. Status post cholecystectomy. Environmental Field Technician: [facility] Transcribe Date/Time: May 27 2024 2:13P Dictated by : LAURENCE FOOTE MD This examination was interpreted and the report reviewed and electronically signed by: LAURENCE FOOTE MD on May 27 2024 2:22PM EST [id number] Normal [facility] US Abdomen RUQon 05-27-2024 * * *Final Report* * * DATE OF EXAM: May 27 2024 11:24AM WRU 1032 - US ABD RIGHT UPPER QUADRANT / PROCEDURE REASON: multiple diagnoses * * * * Physician Interpretation * * * * EXAM TITLE: US ABD RIGHT UPPER QUADRANT, US ABD SPLEEN -NB HISTORY: Elevated alkaline phosphatase. TECHNIQUE: Sonography of the right upper quadrant and spleen was performed. Images were obtained and stored in a permanent archive. MQ: URUQ_1 COMPARISON: CT abdomen pelvis on 04/22/2024 RESULT: Limitations: Bowel gas and body habitus. Pancreas: Normal sonographic appearance. Portions obscured: tail Liver: Echotexture: Mildly heterogeneous Echogenicity: Increase in echogenicity and decrease in penetration. Surface contour: Smooth Lesions: None. MPV: Patent. Biliary: No intrahepatic biliary duct dilation. CBD: 5 mm in diameter. Gallbladder: Surgically absent. Kidneys: Within normal limits. Spleen: No splenomegaly or mass lesion identified. The spleen measures 9.9 cm in length. DIVISION OF RADIOLOGY Provider, [facility] - 05/27/2024 * * *Final Report* * * DATE OF EXAM: May 27 2024 11:24AM WRU 1032 - US ABD RIGHT UPPER QUADRANT / PROCEDURE REASON: multiple diagnoses * * * * Physician Interpretation * * * * EXAM TITLE: US ABD RIGHT UPPER QUADRANT, US ABD SPLEEN -NB HISTORY: Elevated alkaline phosphatase. TECHNIQUE: Sonography of the right upper quadrant and spleen was performed. Images were obtained and stored in a permanent archive. MQ: URUQ_1 COMPARISON: CT abdomen pelvis on 04/22/2024 RESULT: Limitations: Bowel gas and body habitus. Pancreas: Normal sonographic appearance. Portions obscured: tail Liver: Echotexture: Mildly heterogeneous Echogenicity: Increase in echogenicity and decrease in penetration. Surface contour: Smooth Lesions: None. MPV: Patent. Biliary: No intrahepatic biliary duct dilation. CBD: 5 mm in diameter. Gallbladder: Surgically absent. Kidneys: Within normal limits. Spleen: No splenomegaly or mass lesion identified. The spleen measures 9.9 cm in length. IMPRESSION IMPRESSION: Findings are suggestive of hepatic steatosis or diffuse liver parenchymal disease. Status post cholecystectomy. Environmental Field Technician: KATHRYN Transcribe Date/Time: May 27 2024 2:13P Dictated by : LAURENCE FOOTE MD This examination was interpreted and the report reviewed and electronically signed by: LAURENCE FOOTE MD on May 27 2024 2:22PM EST [facility] CNOVon 05-26-2024 CNOV Office Visit (INTMWS ) SKY ZAMUDIO ([id number]) 1970 F Date Time Provider Department 05/26/24 10:40 AM OLDERTRINH INTMARY ANN During your visit today, we recorded the following information about you: Pulse Respiration Blood pressure Weight 101/minute 16/minute 128/80 123.4 kg Trinh Wayne APRN.CNP 05/26/2024 10:38 AM Signed CC: Patient presents with: Finger Pain: L ring finger pain HPI Sky Zamudio is a 54 year old female who presents today for left ring finger injury. Feel forward down 4 steps yesterday placing left hand down after it caught on door jam bending left ring finger backwards then went back into place. Did not hit her head, lose consciousness, no other identified injury or new pain outside to finger. Pain to left 4th digit was immediate pain with swelling, and bruising. Has been icing since accident and feels the bruising has resolved. Has decreased flexion of finger and pain worsens with the use. Denies any loss of sensation. Previous sprain to left finger 3 months ago but no other injury or fracture. REVIEW OF SYSTEMS See HPI PAST MEDICAL HISTORY Diagnosis Date Abdominal pain, periumbilic Acute gastritis without mention of hemorrhage Atrophic vaginitis 07/14/2018 Bipolar disorder, unspecified (HCC) Chronic rhinitis Closed fracture of navicular (scaphoid) bone of foot 12/10/2011 Contact dermatitis and other eczema, due to unspecified cause Diaphragmatic hernia without mention of obstruction or gangrene Dysmenorrhea decreased Esophageal reflux Excessive or frequent menstruation Heavy periods resolved Irregular menstrual cycle Irregular periods Migraine headache Obesity, unspecified Other specified gastritis SLEEP APNEA NOS 12/12/200712-02-08: effic 87%, no stage III, AHI 5.5, REM 20.9, supine 3, snoring 98%-rec CPAP trial Stress incontinence Unspecified asthma(493.90) Unspecified symptom associated with female genital organs PAST SURGICAL HISTORY Procedure Laterality Date ADENOIDECTOMY PRIMARY Adenoidectomy ANESTHESIA HERNIA REPAIR LOWER ABDOMEN NOS 01/31/2005 DELIVERY ONLY x 3 , low cervical CHOLECYSTECTOMY 03/05/2006 Cholecystectomy COLONOSCOPY 12/18/2022 COLONOSCOPY FLX DX W/COLLJ SPEC WHEN PFRMD 03/13/2005 Colonoscopy COLONOSCOPY FLX DX W/COLLJ SPEC WHEN PFRMD 04/28/2018 Colonoscopy COLSC FLX W/RMVL OF TUMOR POLYP LESION SNARE TQ 04/02/2016 ?mild colitis, tubular adenoma in rectal polyp - 5 year follow up EGD 12/18/2022 EGD TRANSORAL BIOPSY SINGLE/MULTIPLE 04/04/2010 mild gastritis ESOPHAGOGASTRODUODENOS COPY TRANSORAL DIAGNOSTIC 03/13/2005 EGD ESOPHAGOGASTRODUODENOS COPY TRANSORAL DIAGNOSTIC 09/14/2019 EGD HYSTERECTOMY HX 05/02/2015 with repair of incidental cystotomy HYSTEROSCOPY, DIAGNOSTIC (SEPARATE 06/21/2010 hysteroscopy DANDC, Novasure LIG/TRNSXJ FLP TUBE ABDL/VAG APPR UNI/BI Tubal ligation NEUROPLASTY AND/TRANSPOS MEDIAN NRV CARPAL TUNNE 06/04/2007 Carpal tunnel decomp right PAST SURGICAL HISTORY OF Abd hernia and mesh placement REPAIR INCISIONAL HERNIA 04/02/2005 with mesh - 3cm infraumbilical - 5cm below umbilicus- medium ventralex mesh SLING OPER STRES INCONTINENCE 05/02/2015 TONSILLECTOMY PRIMARY/SECONDARY Tonsillectomy ALLERGIES Bactrim [Sulfamethoxazole-Trim ethoprim], Bees, Floxin [Ofloxacin], Ivp Dye [Iodine], Keflex [Cephalexin], Mangoes, Smoke, Topamax [Topiramate], Ultram [Tramadol Hcl], and Cefdinir MEDICATIONS fremanezumab-vfrm (AJOVY AUTOINJECTOR) 225 mg/1.5 mL auto-injector Inject 1.5 mL subcutaneously once every month. etodolac (LODINE) 300 mg capsule Take 1 capsule by mouth every 8 hours. ondansetron orally disintegrating (ZOFRAN ODT) 4 mg disintegrating tablet Take 0.5-1 tablets by mouth every 6 hours as needed for nausea/vomiting. promethazine (PHENERGAN) 25 mg tablet Take 1 tablet by mouth every 6 hours as needed for nausea/vomiting. triamcinolone acetonide (NASACORT AQ) 55 mcg nasal inhaler Use 2 Sprays in the nose once daily as needed. EPINEPHrine (EPIPEN) 0.3 mg/0.3 mL auto-injector Inject subcutaneously. use as directed if needed after insect bite cyclobenzaprine (FLEXERIL) 10 mg tablet Take 1 tablet by mouth three times a day as needed. zolpidem (AMBIEN) 10 mg Take 1 tablet by mouth daily at bedtime for 180 days. carBAMazepine XR (TEGRETOL XR) 100 mg 12 hr tablet take 1 tablet by mouth twice a day COMBINED WITH THE 200 MG DOSE carBAMazepine XR (TEGRETOL XR) 200 mg 12 hr tablet take 1 tablet by mouth twice a day COMBINED WITH THE 100 MG DOSE montelukast (SINGULAIR) 10 mg tablet Take 1 tablet by mouth daily at bedtime. methylPREDNISolone (MEDROL, ANDRÉS,) 4 mg Dose-Pack Take as instructed on packaging. acetaminophen 325 mg-caffeine 40 mg-butalbital 50 mg (FIORICET) per tablet Take 1 tablet by mouth every 6 hours if needed for headache. No (more content not included)... Normal [facility] 05-26-2024 [facility] Telephone (INTMWS) SKY ZAMUDIO ([id number]) 1970 F Date Time Provider Department 05/26/24 ELLIOTT MAHAJAN INTWS During your visit today, we recorded the following information about you: Eladio Landry, FARHAT 05/26/2024 8:27 AM Signed Patient reports she thinks she has a break in left hand ring finger. Was walking down the steps yesterday, tripped, caught self with left hand, ring finger bent completely back. Today a little swollen, took ring off yesterday in case it would swell. Using ice. Takes etodolac 1 cap q8h, prescribed by Dr. Griggs for right knee pain, which is also helping her finger pain. Scheduled same day appt with Susan. Allergies As of Date: 05/26/2024 Noted Allergy Reaction BACTRIM (SULFAMETHOXAZOLE-TRIM ETH*10/18/2010 8 - GI Upset Comments: complained of stomach cramps though had tolerated in the past BEES 05/23/2005 FLOXIN (OFLOXACIN) 04/10/2005 Comments: interaction with valproic acid; caused bipolar exacerbation with depression ( bipolar low ) IVP DYE (IODINE) 05/23/2005 10 - Anaphylaxis KEFLEX (CEPHALEXIN) 11/09/2014 1 - Mental Status Change 9 - Itching Comments: bipolar low at same time; not sure if from med; no rash was associated MANGOES 04/21/2007 SMOKE 06/11/2007 12 - Shortness of Breath TOPAMAX (TOPIRAMATE) 03/22/2008 Comments: Dizziness ULTRAM (TRAMADOL HCL) 08/09/2014 14 - Other: See Comments Comments: Migraine headaches CEFDINIR 05/09/2023 9 - Itching Date Reviewed: 04/22/2024 Reviewed by: Hilda Edwards MD - Fully Assessed Reason for Visit: Left hand ring finger injury [Other] Prescriptions as of 05/26/2024 - fremanezumab-vfrm (AJOVY AUTOINJECTOR) 225 mg/1.5 mL auto-injector Inject 1.5 mL subcutaneously once every month. - etodolac (LODINE) 300 mg capsule Take 1 capsule by mouth every 8 hours. - ondansetron orally disintegrating (ZOFRAN ODT) 4 mg disintegrating tablet Take 0.5-1 tablets by mouth every 6 hours as needed for nausea/vomiting. - promethazine (PHENERGAN) 25 mg tablet Take 1 tablet by mouth every 6 hours as needed for nausea/vomiting. - triamcinolone acetonide (NASACORT AQ) 55 mcg nasal inhaler Use 2 Sprays in the nose once daily as needed. - EPINEPHrine (EPIPEN) 0.3 mg/0.3 mL auto-injector Inject subcutaneously. use as directed if needed after insect bite - cyclobenzaprine (FLEXERIL) 10 mg tablet Take 1 tablet by mouth three times a day as needed. - zolpidem (AMBIEN) 10 mg Take 1 tablet by mouth daily at bedtime for 180 days. - carBAMazepine XR (TEGRETOL XR) 100 mg 12 hr tablet take 1 tablet by mouth twice a day COMBINED WITH THE 200 MG DOSE - carBAMazepine XR (TEGRETOL XR) 200 mg 12 hr tablet take 1 tablet by mouth twice a day COMBINED WITH THE 100 MG DOSE - montelukast (SINGULAIR) 10 mg tablet Take 1 tablet by mouth daily at bedtime. - methylPREDNISolone (MEDROL, ANDRÉS,) 4 mg Dose-Pack Take as instructed on packaging. - acetaminophen 325 mg-caffeine 40 mg-butalbital 50 mg (FIORICET) per tablet Take 1 tablet by mouth every 6 hours if needed for headache. No more than 5 days per month. - naratriptan (AMERGE) 2.5 mg tablet Take 1 tab at migraine onset. May repeat once in 2 hours if needed. - albuterol HFA (VENTOLIN HFA) 90 mcg/actuation inhaler Inhale 2 Puffs as instructed every 4 hours as needed. - Cholecalciferol, Vitamin D3, 50 mcg (2,000 unit) cap Take 2 capsules by mouth once daily. - lansoprazole (PREVACID) 30 mg capsule Take 1 capsule by mouth two times a day. - yqvhteqw-ofnoejsoc-muf rocortisone (CORTISPORIN) otic solution Use 3 Drops in the ears four times daily. As directed - diclofenac (VOLTAREN) 1 % topical gel apply topically to affected area as directed if needed - loratadine-pseudoephed rine ER (LORATA-D) 10-240 mg Tb24 Take 1 tablet by mouth once daily. - Lactobacillus acidophilus (FLORAJEN ACIDOPHILUS) 20 billion cell capsule Take 1 capsule by mouth once daily. - CPAP/BIPAP/OTHER Type .CPAPSettings into a note to see current settings/supplies/DME information. - ipratropium 20 mcg-albuterol 100 mcg (COMBIVENT RESPIMAT) 20-100 mcg/actuation inhaler Inhale 1 Puff as instructed four times daily as needed for wheezing/shortness of breath. - meclizine (ANTIVERT) 25 mg tab take 1/2 to 1 tablet by mouth every 6 hours if needed for dizziness - multivitamin (TAB-A-JESSICA) tablet Take 1 tablet by mouth once daily. - bisacodyl EC (DULCOLAX, BISACODYL,) 5 mg EC tablet Take 1 tablet by mouth once daily as needed for constipation. - polyethylene glycol 3350 17 gram/dose powder Take 17 g by mouth once daily. Dissolve dose in 4 - 8 ounces of liquid and take as directed. - Benzonatate 200 mg capsule Take 1 capsule by mouth three times daily as needed. - terconazole (TERAZOL 7) 0.4 % vaginal cream Use 1 Applicator vaginally daily at bedtime. - estrogens conjugated (PREMARIN) 0.3 mg tabl (more content not included)... Normal [facility] XR DIGIT 3V FRONTAL/LAT/OBL LTon 05-26-2024 XR DIGIT 3V FRONTAL/LAT/OBL LT * * *Final Report* * * DATE OF EXAM: May 26 2024 10:50AM WOX [id number] - XR DIGIT 3V FRONTAL/LAT/OBL LT / PROCEDURE REASON: multiple diagnoses * * * * Physician Interpretation *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 7.4-10.4 [facility] ([place] Comment on above: Performed By: #### A LETITIA, CMP, LIP, GFR, CBC, MDW, ADIFF #### [address] [address] RBC 4.58 10 6/mcL Normal 4.20-5.40 [facility] ([place] Comment on above: Performed By: #### A LETITIA, CMP, LIP, GFR, CBC, MDW, ADIFF #### [address] [address] WBC 14.2 10 3/mcL High 4.6-10.8 [facility] ([place] Comment on above: Performed By: #### A LETITIA, CMP, LIP, GFR, CBC, MDW, ADIFF #### [address] [address] CMPon 04-03-2024 Albumin Level 3.3 G/dL Low 3.5-5.0 [facility] ([place] Comment on above: Performed By: #### M DW, GFR, BMP, ANEU, CBC, ADIFF #### [address] [address] Albumin/Globulin [Mass ratio] 1.0 {ratio} Low 1.1-2.5 [facility] ([place] Comment on above: Performed By: #### M DW, GFR, BMP, ANEU, CBC, ADIFF #### [address] [address] ALP [Catalytic activity/Vol] 185 U/L High 40-135 [facility] ([place] Comment on above: Performed By: #### M DW, GFR, BMP, ANEU, CBC, ADIFF #### [address] [address] ALT [Catalytic activity/Vol] 28 U/L Normal 14-59 [facility] ([place] Comment on above: Performed By: #### M DW, GFR, BMP, ANEU, CBC, ADIFF #### [address] [address] AST [Catalytic activity/Vol] 18 U/L Normal 10-40 [facility] ([place] Comment on above: Performed By: #### M DW, GFR, BMP, ANEU, CBC, ADIFF #### [address] [address] Bili Total 0.3 mg/dL Normal 0.2-1.0 [facility] ([place]) Comment on above: Result Comment: Use of this assay is not recommended for patients undergoing treatment with eltrombopag due to the potential for falsely elevated results. Performed By: #### M DW, GFR, BMP, ANEU, CBC, ADIFF #### [address] [address] BUN/Creatinine Ratio 16 ratio Normal 7-27 [facility] [place] Comment on above: Performed By: #### M DW, GFR, BMP, ANEU, CBC, ADIFF #### [address] [address] Calcium [Mass/Vol] 8.7 mg/dL Normal 8.4-10.2 [facility] ([place]) Comment on above: Performed By: #### M DW, GFR, BMP, ANEU, CBC, ADIFF #### [address] [address] Chloride [Moles/Vol] 102 mmol/L Normal 98-107 [facility] [place] Comment on above: Performed By: #### M DW, GFR, BMP, ANEU, CBC, ADIFF #### [address] [address] CO2 [Moles/Vol] 29 mmol/L Normal 22-29 [facility] ([place] Comment on above: Performed By: #### M DW, GFR, BMP, ANEU, CBC, ADIFF #### [address] [address] Creatinine [Mass/Vol] 0.94 mg/dL Normal 0.55-1.02 [facility] ([place]) Comment on above: Performed By: #### M DW, GFR, BMP, ANEU, CBC, ADIFF #### [address] [address] Electrolyte Balance 7.0 mEq/L Normal 4.0-15.0 [facility] ([place]) Comment on above: Performed By: #### M DW, GFR, BMP, ANEU, CBC, ADIFF #### [place] [address] Globulin 3.4 G/dL Normal [facility] ([place] Comment on above: Performed By: #### M DW, GFR, BMP, ANEU, CBC, ADIFF #### [address] [address] Glucose [Mass/Vol] 93 mg/dL Normal 70-105 [facility] ([place]) Comment on above: Performed By: #### M DW, GFR, BMP, ANEU, CBC, ADIFF #### [place] [address] Potassium [Moles/Vol] 4.6 mmol/L Normal 3.5-5.1 [facility] ([place] Comment on above: Performed By: #### M DW, GFR, BMP, ANEU, CBC, ADIFF #### [address] [address] Sodium [Moles/Vol] 138 mmol/L Normal 136-145 [facility] ([place]) Comment on above: Performed By: #### M DW, GFR, BMP, ANEU, CBC, ADIFF #### [place] [address] [place], [place] [address] Total Protein 6.7 G/dL Normal 6.4-8.2 [facility] ([place] Comment on above: Performed By: #### M DW, GFR, BMP, ANEU, CBC, ADIFF #### [place] [address] [place], [place] [address] Urea nitrogen [Mass/Vol] 15 mg/dL Normal 7-18 [facility] ([place] Comment on above: Performed By: #### M DW, GFR, BMP, ANEU, CBC, ADIFF #### [address] [address] [address] ABD/PELVIS W/ IV CONTRAST ONLYon 04-03-2024 CT ABD/PELVIS W/ IV CONTRAST ONLY ORIGINAL EXAMINATION: CT OF THE ABDOMEN AND PELVIS WITH CONTRAST 04/03/2024 8:59 pm TECHNIQUE: CT of the abdomen and pelvis was performed with the administration of intravenous contrast. Multiplanar reformatted images are provided for review. Automated exposure control, iterative reconstruction, and/or weight based adjustment of the mA/kV was utilized to reduce the radiation dose to as low as reasonably achievable. COMPARISON: CT abdomen pelvis 03/10/2020 HISTORY: ORDERING SYSTEM PROVIDED HISTORY: Reason for Exam: PT WAS IN A MINOR ACCIDENT YESTERDAY EVENING AND IS HAVING ABD PAIN WHERE THE SEATBELT HIT HER ABDOMEN. pain FINDINGS: The heart is normal in size. No pericardial thickening or effusion. No acute abnormality within the visualized lower lungs. The aorta is nonaneurysmal with no significant atherosclerosis. No adenopathy within the abdomen or pelvis. The liver, spleen, pancreas, and bilateral adrenal glands are unremarkable. Prior cholecystectomy. Symmetric nephrograms. No hydronephrosis or renal calculi. Subcentimeter hypodensity within the left midpole too small to characterize but most likely represents a simple cyst. The bladder is decompressed but otherwise unremarkable. Prior hysterectomy. No pneumoperitoneum or free fluid. The large and small bowel are normal in caliber. The appendix is unremarkable. No inflammatory changes of the GI tract. No acute osseous abnormality. Degenerative changes of the spine. No acute soft tissue abnormality. There is a large amount of subcutaneous fat, compatible with obesity. IMPRESSION: No acute abnormality within the abdomen or pelvis. I have personally reviewed the images of this examination and agree with the resident's findings and interpretation. Interpreted by: Bonifacio Perez DO Preliminary Report By: Ford Chowdary Electronically signed By Bonifacio Perez DO Dictated Date: 04/03/2024 9:01:16 PM Prelim Date: 04/03/2024 9:06:32 PM Sign Date: 04/03/2024 9:14:06 PM Ordering Provider: ARETHA [facility] ([place]) LABORATORYOrdered By: SYSTEM SYSTEM on 04-03-2024 Albumin BCP dye [Mass/Vol] 3.3 G/dL Low 3.5 - 5.0 G/dL AO ADM SS Albumin/Globulin [Mass ratio] 1.0 {ratio} Low 1.1 - 2.5 ratio AO ADM SS ALP [Catalytic activity/Vol] 185 U/L High 40 - 135 U/L AO ADM SS ALT With P-5'-P [Catalytic activity/Vol] 28 U/L Normal 14 - 59 U/L AO ADM SS AST With P-5'-P [Catalytic activity/Vol] 18 U/L Normal 10 - 40 U/L AO ADM SS Basophil, Absolute 0.2 103/mcL Normal 0.0 - 0.2 10^3/mcL AO Workflow SS Basophils/100 WBC (Bld) 1.1 % Normal 0.0 - 2.5 % AO Workflow SS Bilirubin [Mass/Vol] 0.3 mg/dL Normal 0.2 - 1 .0 mg/dL AO ADM SS Comment on above: Interpretive Data: U se of this assay is not recommended for patients undergoing treatment with eltrombopag due to the potential for falsely elevated results. Calcium [Mass/Vol] 8.7 mg/dL Normal 8.4 - 10. 2 mg/dL AO ADM SS Chloride [Moles/Vol] 102 mmol/L Normal 98 - 10 7 mmol/L AO ADM SS CO2 [Moles/Vol] 29 mmol/L Normal 22 - 29 mmol/L AO ADM SS Creatinine [Mass/Vol] 0.94 mg/dL Normal 0.55 - 1.02 mg/dL AO ADM SS Electrolyte Balance 7.0 mEq/L Normal 4.0 - 15 .0 mEq/L AO ADM SS Eosinophil, Absolute 0.3 103/mcL Normal 0.0 - 0 .4 10^3/mcL AO Workflow SS Eosinophils/100 WBC (Bld) 2.2 % Normal 0.0 - 7.0 % AO Workflow SS Erythrocyte distribution width (RBC) [Ratio] 13.6 % Normal 11.5 - 14.5 % AO Workflow SS GFR/1.73 sq M.predicted among blacks MDRD (S/P/Bld) [Vol rate/Area] 75 ml/min/1.73sqm Invalid Interpretation Code AO Chemistry S Comment on above: Interpretive Data: GFR Population mean for , Non- Americans Ages 20-29 = 116 mL/min/1.73 sq.m. Ages 30-39 = 107 mL/min/1.73 sq.m. Ages 40-49 = 99 mL/min/1.73 sq.m. Ages 50-59 = 93 mL/min/1.73 sq.m. Ages 60-69 = 85 mL/min/1.73 sq.m. Ages 70+ = 75 mL/min/1.73 sq.m. Chronic Kidney Disease: Less than 60 mL/min/1.73 square meters End Stage Renal Disease: Less than 15 mL/min/1.73 square meters GFR/1.73 sq M.predicted among non-blacks MDRD (S/P/Bld) [Vol rate/Area] 62 ml/min/1.73sqm Invalid Interpretation Code AO Chemistry S Comment on above: Interpretive Data: GFR Population mean for , Non- Americans Ages 20-29 = 116 mL/min/1.73 sq.m. Ages 30-39 = 107 mL/min/1.73 sq.m. Ages 40-49 = 99 mL/min/1.73 sq.m. Ages 50-59 = 93 mL/min/1.73 sq.m. Ages 60-69 = 85 mL/min/1.73 sq.m. Ages 70+ = 75 mL/min/1.73 sq.m. Chronic Kidney Disease: Less than 60 mL/min/1.73 square meters End Stage Renal Disease: Less than 15 mL/min/1.73 square meters Globulin 3.4 G/dL Invalid Interpretation Code AO ADM SS Glucose [Mass/Vol] 93 mg/dL Normal 70 - 105 mg/dL AO ADM SS Hematocrit (Bld) [Volume fraction] 41.5 % Normal 37.0 - 47.0 % AO Workflow SS Hemoglobin (Bld) [Mass/Vol] 14.0 G/dL Normal 12.0 - 16.0 G/dL AO Workflow SS Lipase [Catalytic activity/Vol] 23 U/L Normal 16 - 77 U/L AO ADM SS Lymphocyte, Absolute 3.8 103/mcL Normal 0.8 - 3 .9 10^3/mcL AO Workflow SS Lymphocytes/100 WBC (Bld) 26.7 % Normal 10.0 - 50.0 % AO Workflow SS MCH (RBC) [Entitic mass] 30.6 pg Normal 27.0 - 31.2 pg AO Workflow SS MCHC 33.8 G/dL Normal 33.0 - 37.0 G/dL AO Workflow SS MCV (RBC) [Entitic vol] 90.7 fL Normal 80.0 - 94.0 fL AO Workflow SS Monocyte distribution width Auto (Bld) [Entitic vol] 18.28 1 Normal 0.00 - 20.00 AO Workflow SS Comment on above: Result Comment: For ED adult patients suspected of sepsis, MDW<=20.0 does not rule out sepsis or risk of sepsis Monocyte, Absolute 1.0 103/mcL Normal 0.2 - 1.0 10^3/mcL AO Workflow SS Monocytes/100 WBC (Bld) 7.3 % Normal 1.7 - 13.0 % AO Workflow SS Neutrophil, Absolute 8.9 103/mcL High 2.9 - 6 .2 10^3/mcL AO Workflow SS Neutrophils/100 WBC (Bld) 62.7 % Normal 37.0 - 80.0 % AO Workflow SS Platelet mean volume (Bld) [Entitic vol] 6.7 fL Low 7.4 - 10.4 fL AO Workflow SS Platelets (Bld) [#/Vol] 339 103/mcL Normal 130 - 400 10^3/mcL AO Workflow SS Potassium [Moles/Vol] 4.6 mmol/L Normal 3.5 - 5.1 mmol/L AO ADM SS Protein [Mass/Vol] 6.7 G/dL Normal 6.4 - 8.2 G/dL AO ADM SS RBC (Bld) [#/Vol] 4.58 106/mcL Normal 4.20 - 5.4 0 10^6/mcL AO Workflow SS Sodium [Moles/Vol] 138 mmol/L Normal 136 - 145 mmol/L AO ADM SS Urea nitrogen [Mass/Vol] 15 mg/dL Normal 7 - 18 mg/dL AO ADM SS Urea nitrogen/Creatinine [Mass ratio] 16 ratio Normal 7 - 27 ratio AO ADM SS WBC (Bld) [#/Vol] 14.2 103/mcL High 4.6 - 10.8 10^3/mcL AO Workflow SS LABORATORYOrdered By: Blu Simon on 04-03-2024 Appearance (U) Clear (04/03/24 8:04 PM) Normal Clear AO Auto Urine SS Bilirubin Ql (U) Small *ABN* (04/03/24 8:04 PM) Invalid Interpretation Code Negative AO Auto Urine SS Color (U) Yellow (04/03/24 8:04 PM) Normal AO Auto Urine SS Glucose Test strip (U) [Mass/Vol] Negative Normal Negative AO Auto Urine SS Hemoglobin Auto test strip (U) [Mass/Vol] Negative (04/03/24 8:04 PM) Normal Negative AO Auto Urine SS Ketones Ql (U) Negative Normal Negative AO Auto Ur ine SS UA Leuk Est Negative (04/03/24 8:04 PM) Normal Negative AO Auto Urine SS UA Nitrite Negative (04/03/24 8:04 PM) Normal Negative AO Auto Urine SS UA pH 6.0 (04/03/24 8:04 PM) Normal 5.0 - 8.0 AO Auto Urine SS UA Protein 30 mg/dL Normal Negative AO Auto Urine SS UA RBC 0-5 /HPF Invalid Interpretation Code None Seen AO Auto Urine SS UA Spec Grav >=1.030 *ABN* (04/03/24 8:04 PM) Invalid Interpretation Code 1.015-1.025 AO Auto Urine SS UA Specimen Type Clean Catch (04/03/24 8:04 PM) Normal AO Auto Urine SS UA Squam Epithelial 0-5 /HPF Invalid Interpretation Code None Seen AO Auto Urine SS UA Urobilinogen 0.2 E.U./dL Normal 0.2-1.0 AO Auto Urine SS WBC LM.HPF (Urine sed) [#/Area] 0-5 /HPF Invalid Interpretation Code None Seen AO Auto Urine SS LIPon 04-03-2024 Lipase Level 23 U/L Normal 16-77 [facility] ([place]) Comment on above: Performed By: #### M DW, GFR, BMP, ANEU, CBC, ADIFF #### [address] [address] UAon 04-03-2024 Color (U) Yellow Normal [facility] ([place]) Comment on above: Performed By: #### M DW, GFR, BMP, ANEU, CBC, ADIFF #### [address] [address] Glucose (U) [Mass/Vol] Negative Normal Negative [facility] ([place]) Comment on above: Performed By: #### M DW, GFR, BMP, ANEU, CBC, ADIFF #### [address] [address] Ketones Ql (U) Negative Normal Negative [facility] ([place]) Comment on above: Performed By: #### M DW, GFR, BMP, ANEU, CBC, ADIFF #### [address] [address] UA Appear Clear Normal Clear [facility] ([place]) Comment on above: Performed By: #### M DW, GFR, BMP, ANEU, CBC, ADIFF #### [address] [address] UA Bili Small Abnormal Negative [facility] ([place]) Comment on above: Performed By: #### M DW, GFR, BMP, ANEU, CBC, ADIFF #### [address] [address] UA Blood Negative Normal Negative [facility] ([place]) Comment on above: Performed By: #### M DW, GFR, BMP, ANEU, CBC, ADIFF #### [address] [address] UA Leuk Est Negative Normal Negative [facility] ([place]) Comment on above: Performed By: #### M DW, GFR, BMP, ANEU, CBC, ADIFF #### [address] [address] UA Nitrite Negative Normal Negative [facility]) Comment on above: Performed By: #### M DW, GFR, BMP, ANEU, CBC, ADIFF #### [address] [address] UA pH 6.0 Normal 5.0 - 8.0 [facility] ([place]) Comment on above: Performed By: #### M DW, GFR, BMP, ANEU, CBC, ADIFF #### [address] [address] UA Protein 30 mg/dL Normal Negative [facility]) Comment on above: Performed By: #### M DW, GFR, BMP, ANEU, CBC, ADIFF #### [address] [address] UA Spec Grav >=1.030 Abnormal 1.015-1.025 [facility]) Comment on above: Performed By: #### M DW, GFR, BMP, ANEU, CBC, ADIFF #### [address] [address] UA Specimen Type Clean Catch Normal [facility] ([place]) Comment on above: Performed By: #### M DW, GFR, BMP, ANEU, CBC, ADIFF #### [address] [address] UA Urobilinogen 0.2 E.U./dL Normal 0.2-1.0 [facility] [facility]) Comment on above: Performed By: #### M DW, GFR, BMP, ANEU, CBC, ADIFF #### [address] [address] CNOVon 03-25-2024 CNOV Office Visit (INTMWS ) SKY ZAMUDIO ([id number]) 1970 F Date Time Provider Department 03/25/24 1:20 PM AMERICO KHAN During your visit today, we recorded the following information about you: Pulse Respiration Blood pressure Weight 102/minute 16/minute 128/82 122.2 kg Americo Khan APRN.SUPERVISOR PLASTIC SHEETS 03/25/2024 2:12 PM Signed Rest ice and elevate your affected left finger. Avoid any painful activities. Americo Khan APRN.SUPERVISOR PLASTIC SHEETS 03/25/2024 2:41 PM Signed SUBJECTIVE: Spirometry Never done Depression Screening Never done Cervical Cancer Screening due on 04/14/2020 Mammogram Screening due on 10/04/2021 HPI Sky Zamudio is a 54 year old female. PMH signficiant for ACTIVE PROBLEM LIST Esophageal Reflux Chronic Rhinitis Bipolar Disorder, Unspecified (Hcc) Other Specified Disorder of Gallbladder Mild Persistent Asthma Without Complication Obesity, Unspecified Irritable Bowel Syndrome Carpal Tunnel Syndrome Allergic Rhinitis, Cause Unspecified Calcaneal Spur Anxiety State, Unspecified Equinus Deformity of Foot, Acquired Unspecified Sleep Apnea Migraine Headache Acute Gastritis Without Mention of Hemorrhage Dysmenorrhea Irregular Menstrual Cycle Female Stress Incontinence Cystocele, Midline Ventral Hernia Strain of Rectus Abdominis Muscle Abdominal Pain Body Mass Index 40.0-44.9, Adult (Hcc) Nausea and Vomiting Mixed Incontinence Chronic Migraine Without Aura, With Intractable Migraine, So Stated, With Status Migrainosus Intractable Chronic Migraine Without Aura and Without Status Migrainosus Medication Overuse Headache Rebound Headache Axillary Mass Vitamin D Deficiency Atrophic Vaginitis Chronic Daily Headache Status Migrainosus Migraine Without Aura and Without Status Migrainosus, Not Intractable Anxiety Insomnia Intractable Chronic Migraine Without Aura and With Status Migrainosus Dysuria Presents today noting earlier today that she shut her left hand in a car door, she had her hand wrapped from the top of the door, struck her ring finger of the left hand on the PIP. Now bruised swollen with decreased range of motion. She separately reports chronic low back pain since August for she has been seeing chiropractor. She notes she gets adjustments which helped for a few days send the back pain returns. Reports she was advised that she may have an impinged nerve in her back. Today notes that she has low back pain midline to left-sided with radiation to the left leg with intermittent numbness or abnormal sensation. Notes no bowel or bladder complaints. She reports no x-ray has been completed, no physical therapy. Currently taking NSAIDs chronically. States chiropractor told her she may need an MRI for her back. Review of Systems Musculoskeletal: Positive for arthralgias and back pain. Objective BP 128/82 Pulse 102 Resp 16 Wt 122.2 kg (269 lb 6.4 oz) LMP 05/14/2015 BMI 46.24 kg/m? Physical Exam Vitals and nursing note reviewed. Constitutional: Appearance: Normal appearance. HENT: Head: Normocephalic and atraumatic. Eyes: Conjunctiva/sclera: Conjunctivae normal. Cardiovascular: Rate and Rhythm: Normal rate and regular rhythm. Heart sounds: Normal heart sounds. Pulmonary: Effort: Pulmonary effort is normal. Breath sounds: Normal breath sounds. Abdominal: General: Bowel sounds are normal. Palpations: Abdomen is soft. Musculoskeletal: Left hand: Bony tenderness present. No lacerations. Decreased range of motion. Normal sensation. Normal capillary refill. Normal pulse. Lumbar back: Tenderness present. Decreased range of motion. Comments: Ecchymosis and swelling with decreased ROM PIP left finger Skin: General: Skin is warm and dry. Neurological: Mental Status: She is alert. Mental status is at baseline. ALLERGIES Allergen Reactions Bactrim [Sulfametho* GI Upset complained of stomach cramps though had tolerated in the past Bees Floxin [Ofloxacin] interaction with valproic acid; caused bipolar exacerbation with depression ( bipolar low ) Ivp Dye [Iodine] Anaphylaxis Keflex [Cephalexin] Mental Status Change, Itching bipolar low at same time; not sure if from med; no rash was associated Mangoes Smoke Shortness of Breath Topamax [Topiramate] Dizziness Ultram [Tramadol Hc* Other: See Comments Migraine headaches Cefdinir Itching Medications cyclobenzaprine (FLEXERIL) 10 mg tablet Take 1 tablet by mouth three times a day as needed. zolpidem (AMBIEN) 10 mg Take 1 tablet by mouth daily at bedtime for 180 days. ALPRAZolam (XANAX) 0.5 mg tablet Take 1 tablet by mouth once daily as needed for anxiety for up to 30 days. carBAMazepine XR (TEGRETOL XR) 100 mg 12 hr tablet take 1 tablet by mouth twice a day COMBINED WITH THE 200 MG DOSE carBAMazepine XR (TEGRETOL XR) 200 mg 12 hr tablet take 1 tabl (more content not included)... Normal [facility] CNPNon 03-25-2024 CNPN Telephone (INTMWS) SKY ZAMUDIO ([id number]) 1970 F Date Time Provider Department 03/25/24 ELLIOTT MAHAJAN INTMWS During your visit today, we recorded the following information about you: Eladio Landry RN 03/25/2024 8:13 AM Signed Patient reports her lab orders were cancelled, because they , and asking if pcp can put these orders back in? Pended. Please phone patient to let her know when orders are in the lab: [phone] Americo Khan, ANNAMARIE.SUPERVISOR PLASTIC SHEETS 03/25/2024 8:45 AM Signed Orders are in. [employer] message sent. Joan Miller LPN 03/25/2024 10:52 AM Signed Patient notified of providers message and verbalized understanting Allergies As of Date: 03/25/2024 Noted Allergy Reaction BACTRIM (SULFAMETHOXAZOLE-TRIM ETH*10/18/2010 8 - GI Upset Comments: complained of stomach cramps though had tolerated in the past BEES 05/23/2005 FLOXIN (OFLOXACIN) 04/10/2005 Comments: interaction with valproic acid; caused bipolar exacerbation with depression ( bipolar low ) IVP DYE (IODINE) 05/23/2005 10 - Anaphylaxis KEFLEX (CEPHALEXIN) 11/09/2014 1 - Mental Status Change 9 - Itching Comments: bipolar low at same time; not sure if from med; no rash was associated MANGOES 04/21/2007 SMOKE 06/11/2007 12 - Shortness of Breath TOPAMAX (TOPIRAMATE) 03/22/2008 Comments: Dizziness ULTRAM (TRAMADOL HCL) 08/09/2014 14 - Other: See Comments Comments: Migraine headaches CEFDINIR 05/09/2023 9 - Itching Date Reviewed: 01/19/2024 Reviewed by: Pastora Glynn APRN.TIMBER HAND - Fully Assessed Reason for Visit: Patient Question [1477] Primary Visit Diagnosis:Gastroesopha geal reflux disease, unspecified whether esophagitis present [K21.9] Other Visit Diagnoses:Bipolar affective disorder, remission status unspecified ([facility]) [F31.9] Mild persistent asthma without complication [J45.30] Vitamin D deficiency [E55.9] Class 3 severe obesity with body mass index (BMI) of 40.0 to 44.9 in adult, unspecified obesity type, unspecified whether serious comorbidity present ([facility]) [E66.01, Z68.41] Order(s):HEMOGLOBIN A1C [LDKDD1Y] Order #: [id number] FUTURE THYROID STIMULATING HORMONE [SQTSH] Order #: [id number] FUTURE LIPID PANEL BASIC [SQLIPB] Order #: [id number] FUTURE VITAMIN D 25 HYDROXY [SQVITD] Order #: [id number] FUTURE COMPLETE BLOOD COUNT [SQCBC] Order #: [id number] FUTURE MAGNESIUM [SQMG1] Order #: [id number] FUTURE COMPREHENSIVE METABOLIC PANEL [SQCMP] Order #: [id number] FUTURE Prescriptions as of 03/25/2024 - cyclobenzaprine (FLEXERIL) 10 mg tablet Take 1 tablet by mouth three times a day as needed. - zolpidem (AMBIEN) 10 mg Take 1 tablet by mouth daily at bedtime for 180 days. - ALPRAZolam (XANAX) 0.5 mg tablet Take 1 tablet by mouth once daily as needed for anxiety for up to 30 days. - carBAMazepine XR (TEGRETOL XR) 100 mg 12 hr tablet take 1 tablet by mouth twice a day COMBINED WITH THE 200 MG DOSE - carBAMazepine XR (TEGRETOL XR) 200 mg 12 hr tablet take 1 tablet by mouth twice a day COMBINED WITH THE 100 MG DOSE - montelukast (SINGULAIR) 10 mg tablet Take 1 tablet by mouth daily at bedtime. - methylPREDNISolone (MEDROL, ANDRÉS,) 4 mg Dose-Pack Take as instructed on packaging. - acetaminophen 325 mg-caffeine 40 mg-butalbital 50 mg (FIORICET) per tablet Take 1 tablet by mouth every 6 hours if needed for headache. No more than 5 days per month. - naratriptan (AMERGE) 2.5 mg tablet Take 1 tab at migraine onset. May repeat once in 2 hours if needed. - albuterol HFA (VENTOLIN HFA) 90 mcg/actuation inhaler Inhale 2 Puffs as instructed every 4 hours as needed. - Cholecalciferol, Vitamin D3, 50 mcg (2,000 unit) cap Take 2 capsules by mouth once daily. - lansoprazole (PREVACID) 30 mg capsule Take 1 capsule by mouth two times a day. - meloxicam (MOBIC) 15 mg tablet Take 1 tablet by mouth once daily. - amhjoycl-ougcmjjkl-cbl rocortisone (CORTISPORIN) otic solution Use 3 Drops in the ears four times daily. As directed - diclofenac (VOLTAREN) 1 % topical gel apply topically to affected area as directed if needed - loratadine-pseudoephed rine ER (LORATA-D) 10-240 mg Tb24 Take 1 tablet by mouth once daily. - nicotine polacrilex (NICORETTE) 4 mg gum Take 1 Each by mouth as needed. - Lactobacillus acidophilus (FLORAJEN ACIDOPHILUS) 20 billion cell capsule Take 1 capsule by mouth once daily. - CPAP/BIPAP/OTHER Type .CPAPSettings into a note to see current settings/supplies/DME information. - promethazine (PHENERGAN) 25 mg tablet Take 1 tablet by mouth every 6 hours as needed for nausea/vomiting. - ipratropium 20 mcg-albuterol 100 mcg (COMBIVENT RESPIMAT) 20-100 mcg/actuation inhaler Inhale 1 Puff as instructed four times daily as needed for wheezing/shortness of breath. - triamcinolone acetonide (NASACORT AQ) 55 mcg nasal inhaler Use 2 Sprays in the nose once daily as needed (more content not included)... Normal [facility] No Panel Informationon 03-25 Radiology Study observation (narrative) [facility] XR DIGIT 3V FRONTAL/LAT/OBL LTon 03-25-2024 XR DIGIT 3V FRONTAL/LAT/OBL LT * * *Final Report* * * DATE OF EXAM: Mar 25 2024 2:50PM WOX [id number] - XR DIGIT 3V FRONTAL/LAT/OBL LT / PROCEDURE REASON: Injury of finger of left hand, initial encounter * * * * Physician Interpretation * * * * EXAM TITLE: XR DIGIT 3V FRONTAL/LAT/OBL LT EXAM DATE/TIME: 03/25/2024 2:50 PM COMPARISON: None. CLINICAL INDICATION/HISTORY: Injury. TECHNIQUE: PA, lateral and oblique views of the fourth digit of the left hand are presented. FINDINGS: No acute fractures or subluxations are noted. The joint spaces are well preserved. The mineralization of the bones is normal. There is no significant soft tissue swelling. IMPRESSION: No acute radiographic abnormalities seen in the fourth digit. Environmental Field Technician: PSCB Transcribe Date/Time: Mar 25 2024 2:53P Dictated by : LAURENCE FOOTE MD This examination was interpreted and the report reviewed and electronically signed by: LAURENCE FOOTE MD on Mar 25 2024 2:57PM EST [id number] Normal [facility] XR Finger - left AP and Late ral and obliqueon 03-25-2024 IMPRESSION: No acute radiographic abnormalities seen in the fourth digit. Environmental Field Technician: [facility] Transcribe Date/Time: Mar 25 2024 2:53P Dictated by : LAURENCE FOOTE MD This examination was interpreted and the report reviewed and electronically signed by: LAURENCE FOOTE MD on Mar 25 2024 2:57PM EST DIVISION OF RADIOLOGY * * *Final Report* * * DATE OF EXAM: Mar 25 2024 2:50PM WOX [id number] - XR DIGIT 3V FRONTAL/LAT/OBL LT / PROCEDURE REASON: Injury of finger of left hand, initial encounter * * * * Physician Interpretation * * * * EXAM TITLE: XR DIGIT 3V FRONTAL/LAT/OBL LT EXAM DATE/TIME: 03/25/2024 2:50 PM COMPARISON: None. CLINICAL INDICATION/HISTORY: Injury. TECHNIQUE: PA, lateral and oblique views of the fourth digit of the left hand are presented. FINDINGS: No acute fractures or subluxations are noted. The joint spaces are well preserved. The mineralization of the bones is normal. There is no significant soft tissue swelling. DIVISION OF RADIOLOGY Provider, [facility] - 03/25/2024 * * *Final Report* * * DATE OF EXAM: Mar 25 2024 2:50PM WOX [id number] - XR DIGIT 3V FRONTAL/LAT/OBL LT / PROCEDURE REASON: Injury of finger of left hand, initial encounter * * * * Physician Interpretation * * * * EXAM TITLE: XR DIGIT 3V FRONTAL/LAT/OBL LT EXAM DATE/TIME: 03/25/2024 2:50 PM COMPARISON: None. CLINICAL INDICATION/HISTORY: Injury. TECHNIQUE: PA, lateral and oblique views of the fourth digit of the left hand are presented. FINDINGS: No acute fractures or subluxations are noted. The joint spaces are well preserved. The mineralization of the bones is normal. There is no significant soft tissue swelling. IMPRESSION IMPRESSION: No acute radiographic abnormalities seen in the fourth digit. Environmental Field Technician: KATHRYN Transcribe Date/Time: Mar 25 2024 2:53P Dictated by : LAURENCE FOOTE MD This examination was interpreted and the report reviewed and electronically signed by: LAURENCE FOOTE MD on Mar 25 2024 2:57PM EST [facility] XR Finger - left AP and Late ral and obliqueOrdered By: [facility] Provider on 03-25-2024 [facility] XR LUMBAR 3V AP/LAT/L5-S1on 03-25-2024 XR LUMBAR 3V AP/LAT/L5-S1 * * *Final Report* * * DATE OF EXAM: Mar 25 2024 2:50PM WOX [id number] - XR LUMBAR 3V AP/LAT/L5-S1 / PROCEDURE REASON: multiple diagnoses * * * * Physician Interpretation * * * * EXAM TITLE: XR LUMBAR 3V AP/LAT/L5-S1 EXAM DATE/TIME: 03/25/2024 2:50 PM COMPARISON: None. CLINICAL INDICATION/HISTORY: Low back pain. TECHNIQUE: AP, lateral and cone down lateral views of the lumbar spine are presented. FINDINGS: There are five gle-mpz-gfpwbti lumbar vertebrae. No acute fractures demonstrated. There is grade 1 L4 on L5 anterolisthesis. L4-5 disc space narrowing is demonstrated. There is mild osteophyte formation. Kissing spine seen on lateral view. IMPRESSION: Lumbar spine degenerative changes with L4-5 disc space narrowing. Environmental Field Technician: [facility] Transcribe Date/Time: Mar 25 2024 2:51P Dictated by : LAURENCE FOOTE MD This examination was interpreted and the report reviewed and electronically signed by: LAURENCE FOOTE MD on Mar 25 2024 2:53PM EST [id number] Normal [facility] XR Lumbar spine 3 Viewson IMPRESSION: Lumbar spine degenerative changes with L4-5 disc space narrowing. Environmental Field Technician: KATHRYN Transcribe Date/Time: Mar 25 2024 2:51P Dictated by : LAURENCE FOOTE MD This examination was interpreted and the report reviewed and electronically signed by: LAURENCE FOOTE MD on Mar 25 2024 2:53PM [facility] DIVISION OF RADIOLOGY * * *Final Report* * * DATE OF EXAM: Mar 25 2024 2:50PM WOX [id number] - XR LUMBAR 3V AP/LAT/L5-S1 / PROCEDURE REASON: multiple diagnoses * * * * Physician Interpretation * * * * EXAM TITLE: XR LUMBAR 3V AP/LAT/L5-S1 EXAM DATE/TIME: 03/25/2024 2:50 PM COMPARISON: None. CLINICAL INDICATION/HISTORY: Low back pain. TECHNIQUE: AP, lateral and cone down lateral views of the lumbar spine are presented. FINDINGS: There are five uae-jhm-lwluxxs lumbar vertebrae. No acute fractures demonstrated. There is grade 1 L4 on L5 anterolisthesis. L4-5 disc space narrowing is demonstrated. There is mild osteophyte formation. Kissing spine seen on lateral view. DIVISION OF RADIOLOGY Provider, [facility] - 03/25/2024 * * *Final Report* * * DATE OF EXAM: Mar 25 2024 2:50PM WOX [id number] - XR LUMBAR 3V AP/LAT/L5-S1 / PROCEDURE REASON: multiple diagnoses * * * * Physician Interpretation * * * * EXAM TITLE: XR LUMBAR 3V AP/LAT/L5-S1 EXAM DATE/TIME: 03/25/2024 2:50 PM COMPARISON: None. CLINICAL INDICATION/HISTORY: Low back pain. TECHNIQUE: AP, lateral and cone down lateral views of the lumbar spine are presented. FINDINGS: There are five qgl-uwd-srxkvam lumbar vertebrae. No acute fractures demonstrated. There is grade 1 L4 on L5 anterolisthesis. L4-5 disc space narrowing is demonstrated. There is mild osteophyte formation. Kissing spine seen on lateral view. IMPRESSION IMPRESSION: Lumbar spine degenerative changes with L4-5 disc space narrowing. Environmental Field Technician: KATHRYN Transcribe Date/Time: Mar 25 2024 2:51P Dictated by : LAURENCE FOOTE MD This examination was interpreted and the report reviewed and electronically signed by: LAURENCE FOOTE MD on Mar 25 2024 2:53PM EST [facility] [place] 03-15-2024 CNPN Telephone (NHMNS2) ROBBSKY Keri ([id number]) 1970 F Date Time Provider Department 03/15/24 HUMA GARCIA VTMNS2 During your visit today, we recorded the following information about you: Huma Garcia RN 03/15/2024 11:00 AM Addendum Pt calling in requesting refill for tegretol - states she only has enough for today's doses. Previous notes indicate that refill was refused as pt needing to establish care with psychiatrist. Pt states that she is unable to get into psychiatrist for a month, though is on a waiting list for a sooner appointment. Refill request currently pending. Pt updated and appreciative. Emotional support provided. Huma Garcia, RN 03/15/2024 11:01 AM Signed Message received from provider that 60-day supply script was sent in for tegretol. Pt updated and appreciative. Allergies As of Date: 03/15/2024 Noted Allergy Reaction BACTRIM (SULFAMETHOXAZOLE-TRIM ETH*10/18/2010 8 - GI Upset Comments: complained of stomach cramps though had tolerated in the past BEES 05/23/2005 FLOXIN (OFLOXACIN) 04/10/2005 Comments: interaction with valproic acid; caused bipolar exacerbation with depression ( bipolar low ) IVP DYE (IODINE) 05/23/2005 10 - Anaphylaxis KEFLEX (CEPHALEXIN) 11/09/2014 1 - Mental Status Change 9 - Itching Comments: bipolar low at same time; not sure if from med; no rash was associated MANGOES 04/21/2007 SMOKE 06/11/2007 12 - Shortness of Breath TOPAMAX (TOPIRAMATE) 03/22/2008 Comments: Dizziness ULTRAM (TRAMADOL HCL) 08/09/2014 14 - Other: See Comments Comments: Migraine headaches CEFDINIR 05/09/2023 9 - Itching Date Reviewed: 01/19/2024 Reviewed by: Pastora Glynn APRN.TIMBER HAND - Fully Assessed Prescriptions as of 03/15/2024 - carBAMazepine XR (TEGRETOL XR) 100 mg 12 hr tablet take 1 tablet by mouth twice a day COMBINED WITH THE 200 MG DOSE - carBAMazepine XR (TEGRETOL XR) 200 mg 12 hr tablet take 1 tablet by mouth twice a day COMBINED WITH THE 100 MG DOSE - montelukast (SINGULAIR) 10 mg tablet Take 1 tablet by mouth daily at bedtime. - methylPREDNISolone (MEDROL, ANDRÉS,) 4 mg Dose-Pack Take as instructed on packaging. - acetaminophen 325 mg-caffeine 40 mg-butalbital 50 mg (FIORICET) per tablet Take 1 tablet by mouth every 6 hours if needed for headache. No more than 5 days per month. - naratriptan (AMERGE) 2.5 mg tablet Take 1 tab at migraine onset. May repeat once in 2 hours if needed. - albuterol HFA (VENTOLIN HFA) 90 mcg/actuation inhaler Inhale 2 Puffs as instructed every 4 hours as needed. - Cholecalciferol, Vitamin D3, 50 mcg (2,000 unit) cap Take 2 capsules by mouth once daily. - cyclobenzaprine (FLEXERIL) 10 mg tablet Take 1 tablet by mouth three times a day as needed. - lansoprazole (PREVACID) 30 mg capsule Take 1 capsule by mouth two times a day. - meloxicam (MOBIC) 15 mg tablet Take 1 tablet by mouth once daily. - zolpidem (AMBIEN) 10 mg Take 1 tablet by mouth daily at bedtime for 180 days. - bumkwnqt-owrhkxqcc-xpj rocortisone (CORTISPORIN) otic solution Use 3 Drops in the ears four times daily. As directed - diclofenac (VOLTAREN) 1 % topical gel apply topically to affected area as directed if needed - loratadine-pseudoephed rine ER (LORATA-D) 10-240 mg Tb24 Take 1 tablet by mouth once daily. - nicotine polacrilex (NICORETTE) 4 mg gum Take 1 Each by mouth as needed. - Lactobacillus acidophilus (FLORAJEN ACIDOPHILUS) 20 billion cell capsule Take 1 capsule by mouth once daily. - CPAP/BIPAP/OTHER Type .CPAPSettings into a note to see current settings/supplies/DME information. - promethazine (PHENERGAN) 25 mg tablet Take 1 tablet by mouth every 6 hours as needed for nausea/vomiting. - ipratropium 20 mcg-albuterol 100 mcg (COMBIVENT RESPIMAT) 20-100 mcg/actuation inhaler Inhale 1 Puff as instructed four times daily as needed for wheezing/shortness of breath. - triamcinolone acetonide (NASACORT AQ) 55 mcg nasal inhaler Use 2 Sprays in the nose once daily as needed. - fremanezumab-vfrm (AJOVY AUTOINJECTOR) 225 mg/1.5 mL auto-injector Inject 1.5 mL subcutaneously once every month. - meclizine (ANTIVERT) 25 mg tab take 1/2 to 1 tablet by mouth every 6 hours if needed for dizziness - ondansetron orally disintegrating (ZOFRAN ODT) 4 mg disintegrating tablet Take 1 tablet by mouth every 6 hours as needed for nausea/vomiting. - multivitamin (TAB-A-JESSICA) tablet Take 1 tablet by mouth once daily. - EPINEPHrine (EPIPEN) 0.3 mg/0.3 mL auto-injector Inject subcutaneously. use as directed if needed after insect bite - bisacodyl EC (DULCOLAX, BISACODYL,) 5 mg EC tablet Take 1 tablet by mouth once daily as needed for constipation. - polyethylene glycol 3350 17 gram/dose powder Take 17 g by mouth once daily. Dissolve dose in 4 - 8 ounces of liquid and take as directed. - Benzonatate 200 mg capsule Take 1 capsule b (more content not included)... Normal [facility] [place] 01-22-2024 EVER Telephone ([facility]) SKY ZMAUDIO ([id number]) 1970 F Date Time Provider Department [facility] During your visit today, we recorded the following information about you: Angeles Tai RN 01/22/2024 10:36 AM Signed Pt left voice message on [employer] line. Stated that she saw Pastora and was prescribed a new medication that has increased her migraines. She is now having continuous migraines therefore stopped the new medication. She would like a call. Mely Jorgensen RN 01/22/2024 2:37 PM Signed Called and spoke with patient: pt states migraines increased after starting toradol. Pain is 8-9/10 continuous, same typical migraine symptoms, just more intense. Pt has not taken any oral steroids in the last 3 months and is agreeable to a medrol dose pack. Pharmacy: [place] [address] FARHAT De La Cruz Lindsey, APRN.CNP 01/23/2024 8:21 AM Signed Addended by: PASTORA GLYNN on: 01/23/2024 08:21 AM Modules accepted: Orders Allergies As of Date: 01/22/2024 Noted Allergy Reaction BACTRIM (SULFAMETHOXAZOLE-TRIM ETH*10/18/2010 8 - GI Upset Comments: complained of stomach cramps though had tolerated in the past BEES 05/23/2005 FLOXIN (OFLOXACIN) 04/10/2005 Comments: interaction with valproic acid; caused bipolar exacerbation with depression ( bipolar low ) IVP DYE (IODINE) 05/23/2005 10 - Anaphylaxis KEFLEX (CEPHALEXIN) 11/09/2014 1 - Mental Status Change 9 - Itching Comments: bipolar low at same time; not sure if from med; no rash was associated MANGOES 04/21/2007 SMOKE 06/11/2007 12 - Shortness of Breath TOPAMAX (TOPIRAMATE) 03/22/2008 Comments: Dizziness ULTRAM (TRAMADOL HCL) 08/09/2014 14 - Other: See Comments Comments: Migraine headaches CEFDINIR 05/09/2023 9 - Itching Date Reviewed: 01/19/2024 Reviewed by: Pastora Glynn APRN.TIMBER HAND - Fully Assessed Order(s):methylPREDNIS olone (MEDROL, ANDRÉS,) 4 mg Dose-PackTake as instructed on packaging.Disp: 21 tabletRfl: 0 Prescriptions as of 01/23/2024 - methylPREDNISolone (MEDROL, ANDRÉS,) 4 mg Dose-Pack Take as instructed on packaging. - acetaminophen 325 mg-caffeine 40 mg-butalbital 50 mg (FIORICET) per tablet Take 1 tablet by mouth every 6 hours if needed for headache. No more than 5 days per month. - naratriptan (AMERGE) 2.5 mg tablet Take 1 tab at migraine onset. May repeat once in 2 hours if needed. - albuterol HFA (VENTOLIN HFA) 90 mcg/actuation inhaler Inhale 2 Puffs as instructed every 4 hours as needed. - Cholecalciferol, Vitamin D3, 50 mcg (2,000 unit) cap Take 2 capsules by mouth once daily. - cyclobenzaprine (FLEXERIL) 10 mg tablet Take 1 tablet by mouth three times a day as needed. - lansoprazole (PREVACID) 30 mg capsule Take 1 capsule by mouth two times a day. - meloxicam (MOBIC) 15 mg tablet Take 1 tablet by mouth once daily. - zolpidem (AMBIEN) 10 mg Take 1 tablet by mouth daily at bedtime for 180 days. - ecmvysqb-eojemvdpo-tsl rocortisone (CORTISPORIN) otic solution Use 3 Drops in the ears four times daily. As directed - diclofenac (VOLTAREN) 1 % topical gel apply topically to affected area as directed if needed - carBAMazepine XR (TEGRETOL XR) 100 mg 12 hr tablet Take 1 tablet by mouth two times a day. Combine with 200 mg twice daily for 300 mg twice daily dose. - carBAMazepine XR (TEGRETOL XR) 200 mg 12 hr tablet Take 1 tablet by mouth two times a day. Add to 100 mg twice daily for 300 mg twice daily total dose. - loratadine-pseudoephed rine ER (LORATA-D) 10-240 mg Tb24 Take 1 tablet by mouth once daily. - nicotine polacrilex (NICORETTE) 4 mg gum Take 1 Each by mouth as needed. - Lactobacillus acidophilus (FLORAJEN ACIDOPHILUS) 20 billion cell capsule Take 1 capsule by mouth once daily. - CPAP/BIPAP/OTHER Type .CPAPSettings into a note to see current settings/supplies/DME information. - promethazine (PHENERGAN) 25 mg tablet Take 1 tablet by mouth every 6 hours as needed for nausea/vomiting. - ipratropium 20 mcg-albuterol 100 mcg (COMBIVENT RESPIMAT) 20-100 mcg/actuation inhaler Inhale 1 Puff as instructed four times daily as needed for wheezing/shortness of breath. - triamcinolone acetonide (NASACORT AQ) 55 mcg nasal inhaler Use 2 Sprays in the nose once daily as needed. - fremanezumab-vfrm (AJOVY AUTOINJECTOR) 225 mg/1.5 mL auto-injector Inject 1.5 mL subcutaneously once every month. - meclizine (ANTIVERT) 25 mg tab take 1/2 to 1 tablet by mouth every 6 hours if needed for dizziness - ondansetron orally disintegrating (ZOFRAN ODT) 4 mg disintegrating tablet Take 1 tablet by mouth every 6 hours as needed for nausea/vomiting. - multivitamin (TAB-A-JESSICA) tablet Take 1 tablet by mouth once daily. - EPINEPHrine (EPIPEN) 0.3 mg/0.3 mL auto-injector Inject subcutaneously. use as directed if needed after insect bite - bisacodyl (more content not included)... Normal [facility] CNOVon 12-15-2023 CNOV Office Visit (INTMWS ) SKY ZAMUDIO ([id number]) 1970 F Date Time Provider Department 12/15/23 4:20 PM ELLIOTT MAHAJAN INTMWS During your visit today, we recorded the following information about you: Temperature Pulse Respiration Blood pressure 96.8 degrees 108/minute 18/minute 122/78 Weight 117.5 kg Elliott Mahajan MD 12/19/2023 12:24 AM Signed PHQ-9 Score: 14 (Moderate Depression) Continuing current treatment plan Going through counseling. Current on meds that can help with mood stabilizing. Also, on meds for anxiety. Further evaluation and treatment as indicated. Elliott Mahajan MD 12/19/2023 12:24 AM Signed This note was created using NoteWriter. Subjective Sky Zamudio is a 53 year old female. Patient presents with: F/U 6 months SUBJECTIVE: Sky Zamudio is a 53 year old year old lady here today for 6 month follow up appointment for review of medical conditions. Son has liver failure--end stage. Might be on transplant list. Has history of Agustín's disease. Feels like nerves acting up. Will see counselor . Needs refill on Xanax. Last RX was April last year and 60 pills lasted since then. Lips feel numb most of the time past 2 to 3 days. Not sure of the trigger. CPAP machine was brought to DME supplier. They never called her back with replacement and this was over a year ago. Dropped off on [employer] in [place]. Leg numb on left lateral thigh since [place] August 28 this year. Working with chiropractor. PAST MEDICAL HISTORY Diagnosis Date Abdominal pain, periumbilic Acute gastritis without mention of hemorrhage Atrophic vaginitis 07/14/2018 Bipolar disorder, unspecified (HCC) Chronic rhinitis Closed fracture of navicular (scaphoid) bone of foot 12/10/2011 Contact dermatitis and other eczema, due to unspecified cause Diaphragmatic hernia without mention of obstruction or gangrene Dysmenorrhea decreased Esophageal reflux Excessive or frequent menstruation Heavy periods resolved Irregular menstrual cycle Irregular periods Migraine headache Obesity, unspecified Other specified gastritis SLEEP APNEA NOS 12/12/2007 12-03-07: effic 87%, no stage III, AHI 5.5, REM 20.9, supine 3, snoring 98%-rec CPAP trial Stress incontinence Unspecified asthma(493.90) Unspecified symptom associated with female genital organs Current Outpatient Medications Medication Sig diclofenac (VOLTAREN) 1 % topical gel apply topically to affected area as directed if needed carBAMazepine XR (TEGRETOL XR) 100 mg 12 hr tablet Take 1 tablet by mouth two times a day. Combine with 200 mg twice daily for 300 mg twice daily dose. carBAMazepine XR (TEGRETOL XR) 200 mg 12 hr tablet Take 1 tablet by mouth two times a day. Add to 100 mg twice daily for 300 mg twice daily total dose. zolpidem (AMBIEN) 10 mg Take 1 tablet by mouth daily at bedtime for 90 days. Do not start before October 15, 2023. lansoprazole (PREVACID) 30 mg capsule take 1 capsule by mouth twice a day meloxicam (MOBIC) 15 mg tablet take 1 tablet by mouth once daily loratadine-pseudoephed rine ER (LORATA-D) 10-240 mg Tb24 Take 1 tablet by mouth once daily. cyclobenzaprine (FLEXERIL) 10 mg tablet Take 1 tablet by mouth three times a day as needed. acetaminophen 325 mg-caffeine 40 mg-butalbital 50 mg (FIORICET) per tablet Take 1 tablet by mouth every 6 hours if needed for headache. No more than 5 days per month. nicotine polacrilex (NICORETTE) 4 mg gum Take 1 Each by mouth as needed. Lactobacillus acidophilus (FLORAJEN ACIDOPHILUS) 20 billion cell capsule Take 1 capsule by mouth once daily. CPAP/BIPAP/OTHER Type .CPAPSettings into a note to see current settings/supplies/DME information. promethazine (PHENERGAN) 25 mg tablet Take 1 tablet by mouth every 6 hours as needed for nausea/vomiting. ipratropium 20 mcg-albuterol 100 mcg (COMBIVENT RESPIMAT) 20-100 mcg/actuation inhaler Inhale 1 Puff as instructed four times daily as needed for wheezing/shortness of breath. triamcinolone acetonide (NASACORT AQ) 55 mcg nasal inhaler Use 2 Sprays in the nose once daily as needed. fremanezumab-vfrm (AJOVY AUTOINJECTOR) 225 mg/1.5 mL auto-injector Inject 1.5 mL subcutaneously once every month. naratriptan (AMERGE) 2.5 mg tablet Take 1 tab at migraine onset. May repeat once in 2 hours if needed. meclizine (ANTIVERT) 25 mg tab take 1/2 to 1 tablet by mouth every 6 hours if needed for dizziness ondansetron orally disintegrating (ZOFRAN ODT) 4 mg disintegrating tablet Take 1 tablet by mouth every 6 hours as needed for nausea/vomiting. multivitamin (TAB-A-JESSICA) tablet Take 1 tablet by mouth once daily. EPINEPHrine (EPIPEN) 0.3 mg/0.3 mL auto-injector Inject subcutaneously. use as directed if needed after insect bite [id number] rocortisone (CORTISPORIN) otic solution Use 3 Drops in the (more content not included)... Normal [facility] Office Visiton 08-14-2023 Follow-up visit [id number] Sky Zamudio 1970 F Date Provider Department Center 08/14/2023 [id number] None Family History Problem Relation Age of Onset Crohn's disease Brother Diabetes Maternal Grandmother Cancer Father Comments: skin cancer, type unknown Heart disease Maternal Grandmother Family Status - Relation Status Age at Brother Maternal Grandmother Father Alive Mother Alive Level of Service:84182 [place] OFFICE/OUTPATIENT ESTABLISHED LOW MDM 20 MIN (25) Reason for Visit and Comments: Actinic Keratosis [[id number]] - LV 06/12/2023 ([facility]) Normal [facility] PATINSon 08-14-2023 PATINS Topical Steroids Topical steroids are externally-applied medications used to treat a wide variety of skin problems such as dermatitis, eczema, and psoriasis. They may come in creams, lotions, ointments, gels, foams, or liquids. They must be used properly to avoid side effects. Side effects include: Thinning of the skin (atrophy) and stretch [facility] use of topical steroids can lead to loss of collagen and fragile skin It is recommended that you limit yourself to 2-4 weeks of twice daily application, unless otherwise instructed by your physician Atrophy is more common when using stronger topical steroids on the groin, underarm, body folds, or face Lightening of the skin tone Acne, rosacea, and visible blood vessels Rebound phenomenon Occasionally using topical steroids can lead to a situation where the condition quickly flares up immediately upon discontinuation of the medication Notify your doctor if you are experiencing this side effect Allergic reactions. Normal [facility] Progress Noteon 08-14-2023 Progress Note DATE OF SERVICE: 08/14/2023 PATIENT NAME: Sky Zamudio : 1970 AGE: 53 y.o. CLINIC NUMBER: [id number] Visit type: Established patient Chief Complaint Patient presents with Actinic Keratosis LV 06/12/2023 ([facility]) Subjective HISTORY OF PRESENT ILLNESS: This is a 53 y.o. female who presents for evaluation of Aks, Intertrigo, and Prurigo Nodules; last seen 06/12/2023. F/u- actinic keratoses located on the Left Shoulder - Posterior. At this visit patient was treated with LN2. Denies redness, roughness, flaking, itching, bleeding, and tenderness. Patient does believe that the areas have resolved. She does have a new spot on her scalp. F/u-Prurigo Nodules to the Right and Left upper arms. Improved since last visit. Currently treating with Triamcinolone Ointment. Denies flares. F/u-Intertrigo to the anterior pelvis. Improved since last visit. Currently treating with Nystatin Cream. Denies flares. Patient has no?h/o of ATN. Patient has a?h/o of Aks; tx with cryotherapy and efudex. Skin, mid frontal scalp: Hypertrophic actinic keratosis. Patient has no?personal h/o skin cancer. Patient has no?family h/o melanoma; father and brother- unknown type. Are you , trying to become or ? No History of pacemaker/ defibrillator? No History of HIV/ Hep C? No Allergies to Lidocaine, Epinephrine, Latex or Adhesive? No Review of Systems There were no vitals filed for this visit. PHYSICAL EXAM GENERAL APPEARANCE:?Alert & oriented x3, pleasant. Well developed, well nourished. PSYCH: appropriate mood and affect. DERMATOLOGY: (all measurements are in cm, unless otherwise noted) 1. Actinic keratoses Mid Frontal Scalp [place] scaly macule(s) Patient educated on actinic keratosis and the possibility of transformation into SCC. Treatment options are discussed with risks and benefits reviewed. Cryotherapy is agreed upon and performed. Reassured that redness, swelling and the formation of a blister at the site of cryotherapy are possible reactions. After care instructions are given and reviewed. Patient to apply Vaseline to treated sites while healing. Patient to monitor for resolution. If unresolved after 2-3 months, patient to return for further evaluation and management Cryotherapy Actinic Keratosis: Medical Necessity: It was explained to the patient that actinic keratoses are precancerous. Consent: The patient understood all the risks and benefits prior to treatment. The risks explained included scarring, hyper and/or hypopigmentation. Although this treatment is highly effective, recurrences do occur and this was explained to the patient. The patient further understood that these lesions are precancerous and may develop into a malignancy. Method: Liquid nitrogen was used to treat the lesion(s) with two freeze-thaw cycles. Post-op: The patient was instructed to clean the site normally twice a day. Signs of infection were reviewed and patient was instructed to call if he/ she develops increasing pain, purulent drainage, or beefy redness. The patient was informed that a blister may occur at the cryo site and that this is an expected event. Sun protection was reviewed and patient advised to use sunscreen with SPF 30 or greater on exposed skin when outdoors. Post-op instructions were given orally and in writing. Cryotherapy, skin lesion - Mid Frontal Scalp 2. Solar lentigo (2) Left Forearm - Posterior, Right Forearm - Posterior Light brown well-circumscribed macule(s) Educated and reassured, benign finding secondary to sun exposure. Patient educated on the proper use of sunscreen, SPF, and how often to reapply. Recommend use of OTC mineral sun block, like Neutrogena or La-Hortensia Posay. Patient advised to look for zinc or titanium as the active ingredient(s). Try to limit sun exposure to powerhouse helper or late evening hours. Patient advised to perform self-skin checks and call for follow up appointment if any new or concerning lesions detected. 3. 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 Patient advised to stop picking, keep fingernails short and when she feels the urge to itch, apply Aquaphor or Cerave healing ointment. Patient will make every effort to avoid picking and monitor the areas for improvement. Patient expresses understanding and is in agreement with the plan. Continue: Triamcinolone Ointment pRN Related Medications triamcinolone (Kenalog) 0.1 % ointment Apply to affected areas twice daily x 2 weeks Stop using when clear. Repeat as needed for flares. Do not use on face, armpits, groin. Follow u (more content not included)... Normal [facility] CNOVon 06-30-2023 CNOV Office Visit (GENSWS ) SKY ZAMUDIO ([id number]) 1970 F Date Time Provider Department 06/30/23 10:15 AM HILDA EDWARDS During your visit today, we recorded the following information about you: Temperature Pulse Blood pressure Weight 97.2 degrees 109/minute 118/78 114.8 kg Height 1.626 m Hilda Edwards MD 07/02/2023 2:58 PM Signed FOLLOW UP VISIT Sky Zamudio 1970 REFERRING PHYSICIAN: Elliott Mahajan MD CHIEF COMPLAINT: Consult (Referred by PCP for colonoscopy consult d/t abdominal pain. Previous polyps with colonoscopy) HPI: The patient is a 48 year old female referred for endoscopy. Sky notes no current colon complaints The patient notes no history of upper GI complaints. Sky has undergone prior endoscopy. I performed colonoscopy in 2016. A small polyp was found in the rectum. The patient was noting change in bowel habits at that time. I performed random biopsies. Pathology returned as: FINAL DIAGNOSIS 1. Ileocecal valve, biopsy (A) - Focal active colitis. 2. Sigmoid colon, biopsy (B) - Colonic mucosa with underlying lymphoid aggregate. 3. Rectum, polyp, biopsy (C) - Fragments of tubular adenoma. LANRE/henri 04/03/2016 Additionally, the patient noted a sense of fullness and slight discomfort in her anterior right axillary area. She had been noticing that for approximately 5 years when I saw her last year for this complaint. No specific abnormalities were noted. Mammogram was unremarkable at that time and ultrasound demonstrated of vague shadowing which I was not able to reproduce in the office. I recommended follow-up mammogram and ultrasound. For her specific axillary issue I last saw her on April 14, 2018. The patient still notes persistent discomfort in the right axillary area. At times she feels she can associate the discomfort with a palpable mass at other times she cannot feel the mass. The patient underwent ultrasound at [facility] which demonstrated a benign-appearing lymph node but now this lymph node had measured 1 cm when prayer lymph nodes in the region had measured half centimeter. The patient is quite concerned about this tenderness in her axilla because she states her mother had exploratory laparotomy and had metastatic lymph nodes and she is concerned this could be malignancy. She notes no breast masses and has no specific breast radiographic findings. Additionally the patient noted recent admission for bacterial pneumonia. She still has some coarse breath sounds on exam but denies shortness of breath or other difficulties. When I saw the patient in the office I performed office-based ultrasound but did not demonstrate the abnormality listed as a lymph node seen at the ultrasound at [facility]. I scheduled the patient for official ultrasound with marker clip placement if this was identified and then I would proceed with excision of the site. The patient presented for ultrasound and mammogram. No abnormalities were seen. IMPRESSION: NEGATIVE Patient presented for imaging guided presurgical localization with reflector placement of a finding described in the right axilla in the ultrasound exam dated 05/15/2023. After scanning the patient for a long time, the finding could not be reproduced. Repeat mammogram was also performed, showing no suspicious mammographic findings in the right breast and axilla, with overall fibroglandular pattern stable from multiple prior exams. Given imaging findings of lack of a real finding, the localization was not performed. Area in the right axilla was described as a lymph node, but the lymph node seen on today's exam is deeper in location and appears benign, unchanged from ultrasound exam from 2020. Patient has an ongoing complaining of focal pain in the right axilla, and had diagnostic imaging done for same reason back in 2016. Clinical follow up is recommended given pain. Patient mentioned that her pain could be related from previous fall. Patient is under the care of Dr. Hilda Edwards (I paged him today). There is no mammographic evidence of malignancy. The patient's planned/potential surgical case was canceled and the patient return for further discussion. PAST MEDICAL HISTORY Diagnosis Date Abdominal pain, periumbilic Acute gastritis without mention of hemorrhage Atrophic vaginitis 07/14/2018 Bipolar disorder, unspecified (HCC) Chronic rhinitis Closed fracture of navicular (scaphoid) bone of foot 12/10/2011 Contact dermatitis and other eczema, due to unspecified cause Diaphragmatic hernia without mention of obstruction or gangrene Dysmenorrhea decreased Esophageal reflux Excessive or frequent menstruation Heavy periods resolved Irregular menstrual cycle Irregular periods Migraine headache Obesity, unspecified Other specified gastrit (more content not included)... Normal [facility] DBT Breast - right diagnosti c for implanton 06-26-2023 * * *Final Report* * * DATE OF EXAM: Jun 26 2023 1:39PM SSW [id number] - YADIRA DIAG W LENARD RT / PROCEDURE REASON: multiple diagnoses * * * * Physician Interpretation * * * * RESULT: #[id number] - [facility]IRA DIAG W LENARD RT #[id number] - YADIRA US BREAST LTD RT UNILATERAL RIGHT DIGITAL DIAGNOSTIC MAMMOGRAM TOMOSYNTHESIS WITH CAD: 06/26/2023 HISTORY: Patient presenting for ultrasound-guided presurgical localization with reflector placement of the described finding in the right axilla. RESULT: TECHNIQUE: The study was acquired using full field digital technology and interpreted from soft copy. Digital Breast Tomosynthesis (DBT) images were obtained and used to assist in the interpretation of this examination. Current study was also evaluated with a Computer Aided Detection (CAD). Comparison is made to exams dated: 06/26/2023 ultrasound - [facility], 10/04/2020 ultrasound, 10/04/2020 mammogram, 04/25/2016 ultrasound, 04/25/2016 mammogram, and 02/18/2014 mammogram - [facility]. There are scattered areas of fibroglandular density in the right breast. Patient presented for imaging guided presurgical localization with reflector placement of a finding described in the right axilla in the ultrasound exam dated 05/15/2023. After scanning the patient for a long time, the finding could not be reproduced. Repeat mammogram was also performed, showing no suspicious mammographic findings in the right breast and axilla, with overall fibroglandular pattern stable from multiple prior exams. Given imaging findings of lack of a real finding, the localization was not performed. No significant masses, calcifications, or other findings are seen in the breast. DIVISION OF RADIOLOGY Provider, [facility] - 06/26/2023 * * *Final Report* * * DATE OF EXAM: Jun 26 2023 1:39PM SSW 0629 - [facility] TALHA Pugh LENARD RT / PROCEDURE REASON: multiple diagnoses * * * * Physician Interpretation * * * * RESULT: #[id number] - [facility] DANIELG W LENARD RT #[id number] - [facility] US BREAST LTD RT UNILATERAL RIGHT DIGITAL DIAGNOSTIC MAMMOGRAM TOMOSYNTHESIS WITH CAD: 06/26/2023 HISTORY: Patient presenting for ultrasound-guided presurgical localization with reflector placement of the described finding in the right axilla. RESULT: TECHNIQUE: The study was acquired using full field digital technology and interpreted from soft copy. Digital Breast Tomosynthesis (DBT) images were obtained and used to assist in the interpretation of this examination. Current study was also evaluated with a Computer Aided Detection (CAD). Comparison is made to exams dated: 06/26/2023 ultrasound - [facility], 10/04/2020 ultrasound, 10/04/2020 mammogram, 04/25/2016 ultrasound, 04/25/2016 mammogram, and 02/18/2014 mammogram - [facility]. There are scattered areas of fibroglandular density in the right breast. Patient presented for imaging guided presurgical localization with reflector placement of a finding described in the right axilla in the ultrasound exam dated 05/15/2023. After scanning the patient for a long time, the finding could not be reproduced. Repeat mammogram was also performed, showing no suspicious mammographic findings in the right breast and axilla, with overall fibroglandular pattern stable from multiple prior exams. Given imaging findings of lack of a real finding, the localization was not performed. No significant masses, calcifications, or other findings are seen in the breast. IMPRESSION IMPRESSION: NEGATIVE Patient presented for imaging guided presurgical localization with reflector placement of a finding described in the right axilla in the ultrasound exam dated 05/15/2023. After scanning the patient for a long time, the finding could not be reproduced. Repeat mammogram was also performed, showing no suspicious mammographic findings in the right breast and axilla, with overall fibroglandular pattern stable from multiple prior exams. Given imaging findings of lack of a real finding, the localization was not performed. Area in the right axilla was described as a lymph node, but the lymph node seen on today's exam is deeper in location and appears benign, unchanged from ultrasound exam from 2020. Patient has an ongoing complaining of focal pain in the right axilla, and had diagnostic imaging done for same reason back in 2016. Clinical follow up is recommended given pain. Patient mentioned that her pain could be related from previous fall. Patient is under the care of Dr. Hilda Edwards (I paged him today). There is no mammographic evidence of malignancy. SUMMARY: Findings and recommendations were discussed with the patient at the time of examination. Germaine Lino M.D., cp/shyam:06/26/2023 14:01:00 Project Development Leader(s): RT Yolanda(R)(M), [facility] OVERALL STUDY BIRADS: 1 Negative Multiple national specialty organizations have released breast cancer screening guidelines for women at average risk for developing breast cancer - guidelines that are based on both evidence and opinion, yet differ on when to start and how often to screen for breast cancer. With representation from Breast Imaging, Internal Medicine, Women's Health, Family Medicine, and Medical/Surgical Oncology, the [facility] has carefully reviewed the data and reached the following consensus: 1) All women should engage in shared decision-making with their providers to decide when to start and how often to screen; 2) All women should have the opportunity to start screening mammography at age 40; 3) For women ages 45-55, we recommend annual screening mammograms; 4) For women ages 55 and over, we support both the transition from an annual to a biennial interval if this aligns more with patient's values and preferences, or continuation with annual screening; 5) All women should discuss with their providers when to stop screening mammograms. Environmental Field Technician: Shyam Transcribe Date/Time: Jun 26 2023 1:40P Dictated by: GERMAINE LINO MD This examination was interpreted and the report reviewed and electronically signed by: GERMAINE LINO MD on Jun 26 2023 2:01PM [facility] YADIRA WEINBERG RTon -16-2 023 YADIRA WEINBERG RT * * *Final Report* * * DATE OF EXAM: Jun 26 2023 1:39PM SSW [id number] - [facility] TALHA Pugh LENARD RT / PROCEDURE REASON: multiple diagnoses * * * * Physician Interpretation * * * * RESULT: #[id number] - [facility] DIAG W LENARD RT #[id number] - [facility] US BREAST LTD RT UNILATERAL RIGHT DIGITAL DIAGNOSTIC MAMMOGRAM TOMOSYNTHESIS WITH CAD: 06/26/2023 HISTORY: Patient presenting for ultrasound-guided presurgical localization with reflector placement of the described finding in the right axilla. RESULT: TECHNIQUE: The study was acquired using full field digital technology and interpreted from soft copy. Digital Breast Tomosynthesis (DBT) images were obtained and used to assist in the interpretation of this examination. Current study was also evaluated with a Computer Aided Detection (CAD). Comparison is made to exams dated: 06/26/2023 ultrasound - [facility], 10/04/2020 ultrasound, 10/04/2020 mammogram, 04/25/2016 ultrasound, 04/25/2016 mammogram, and 02/18/2014 mammogram - [facility]. There are scattered areas of fibroglandular density in the right breast. Patient presented for imaging guided presurgical localization with reflector placement of a finding described in the right axilla in the ultrasound exam dated 05/15/2023. After scanning the patient for a long time, the finding could not be reproduced. Repeat mammogram was also performed, showing no suspicious mammographic findings in the right breast and axilla, with overall fibroglandular pattern stable from multiple prior exams. Given imaging findings of lack of a real finding, the localization was not performed. No significant masses, calcifications, or other findings are seen in the breast. IMPRESSION: NEGATIVE Patient presented for imaging guided presurgical localization with reflector placement of a finding described in the right axilla in the ultrasound exam dated 05/15/2023. After scanning the patient for a long time, the finding could not be reproduced. Repeat mammogram was also performed, showing no suspicious mammographic findings in the right breast and axilla, with overall fibroglandular pattern stable from multiple prior exams. Given imaging findings of lack of a real finding, the localization was not performed. Area in the right axilla was described as a lymph node, but the lymph node seen on today's exam is deeper in location and appears benign, unchanged from ultrasound exam from 2020. Patient has an ongoing complaining of focal pain in the right axilla, and had diagnostic imaging done for same reason back in 2016. Clinical follow up is recommended given pain. Patient mentioned that her pain could be related from previous fall. Patient is under the care of Dr. Hilda Edwards (I paged him today). There is no mammographic evidence of malignancy. SUMMARY: Findings and recommendations were discussed with the patient at the time of examination. Germaine Lino M.D., cp/shyam:06/26/2023 14:01:00 Project Development Leader(s): Cony Maria RT(R)(M), [facility] OVERALL STUDY BIRADS: 1 Negative Multiple national specialty organizations have released breast cancer screening guidelines for women at average risk for developing breast cancer - guidelines that are based on both evidence and opinion, yet differ on when to start and how often to screen for breast cancer. With representation from Breast Imaging, Internal Medicine, Women's Health, Family Medicine, and Medical/Surgical Oncology, the [facility] has carefully reviewed the data and reached the following consensus: 1) All women should engage in shared decision-making with their providers to decide when to start and how often to screen; 2) All women should have the opportunity to start screening mammography at age 40; 3) For women ages 45-55, we recommend annual screening mammograms; 4) For women ages 55 and over, we support both the transition from an annual to a biennial interval if this aligns more with patient's values and preferences, or continuation with annual screening; 5) All women should discuss with their providers when to stop screening mammograms. Environmental Field Technician: Shyam Transcribe Date/Time: Jun 26 2023 1:40P Dictated by: GERMAINE LINO MD This examination was interpreted and the report reviewed and electronically signed by: GERMAINE LINO MD on Jun 26 2023 2:01PM EST [id number] Normal [facility] US BREAST LTD RTon 06-26 [facility] US BREAST LTD RT * * *Final Report* * * DATE OF EXAM: Jun 26 2023 1:40PM SSW 0594 - [facility] US BREAST LTD RT / PROCEDURE REASON: multiple diagnoses * * * * Physician Interpretation * * * * RESULT: #[id number] - [facility] DIAG W LENARD RT #[id number] - [facility] US BREAST LTD RT UNILATERAL RIGHT DIGITAL DIAGNOSTIC MAMMOGRAM TOMOSYNTHESIS WITH CAD: 06/26/2023 HISTORY: Patient presenting for ultrasound-guided presurgical localization with reflector placement of the described finding in the right axilla. RESULT: TECHNIQUE: The study was acquired using full field digital technology and interpreted from soft copy. Digital Breast Tomosynthesis (DBT) images were obtained and used to assist in the interpretation of this examination. Current study was also evaluated with a Computer Aided Detection (CAD). Comparison is made to exams dated: 06/26/2023 ultrasound - [facility], 10/04/2020 ultrasound, 10/04/2020 mammogram, 04/25/2016 ultrasound, 04/25/2016 mammogram, and 02/18/2014 mammogram - [facility]. There are scattered areas of fibroglandular density in the right breast. Patient presented for imaging guided presurgical localization with reflector placement of a finding described in the right axilla in the ultrasound exam dated 05/15/2023. After scanning the patient for a long time, the finding could not be reproduced. Repeat mammogram was also performed, showing no suspicious mammographic findings in the right breast and axilla, with overall fibroglandular pattern stable from multiple prior exams. Given imaging findings of lack of a real finding, the localization was not performed. No significant masses, calcifications, or other findings are seen in the breast. IMPRESSION: NEGATIVE Patient presented for imaging guided presurgical localization with reflector placement of a finding described in the right axilla in the ultrasound exam dated 05/15/2023. After scanning the patient for a long time, the finding could not be reproduced. Repeat mammogram was also performed, showing no suspicious mammographic findings in the right breast and axilla, with overall fibroglandular pattern stable from multiple prior exams. Given imaging findings of lack of a real finding, the localization was not performed. Area in the right axilla was described as a lymph node, but the lymph node seen on today's exam is deeper in location and appears benign, unchanged from ultrasound exam from 2020. Patient has an ongoing complaining of focal pain in the right axilla, and had diagnostic imaging done for same reason back in 2016. Clinical follow up is recommended given pain. Patient mentioned that her pain could be related from previous fall. Patient is under the care of Dr. Hilda Edwards (I paged him today). There is no mammographic evidence of malignancy. SUMMARY: Findings and recommendations were discussed with the patient at the time of examination. Germaine Lino M.D., cp/shyam:06/26/2023 14:01:00 Project Development Leader(s): RT Yolanda(R)(M), [facility] OVERALL STUDY BIRADS: 1 Negative Multiple national specialty organizations have released breast cancer screening guidelines for women at average risk for developing breast cancer - guidelines that are based on both evidence and opinion, yet differ on when to start and how often to screen for breast cancer. With representation from Breast Imaging, Internal Medicine, Women's Health, Family Medicine, and Medical/Surgical Oncology, the [facility] has carefully reviewed the data and reached the following consensus: 1) All women should engage in shared decision-making with their providers to decide when to start and how often to screen; 2) All women should have the opportunity to start screening mammography at age 40; 3) For women ages 45-55, we recommend annual screening mammograms; 4) For women ages 55 and over, we support both the transition from an annual to a biennial interval if this aligns more with patient's values and preferences, or continuation with annual screening; 5) All women should discuss with their providers when to stop screening mammograms. Environmental Field Technician: Shyam Transcribe Date/Time: Jun 26 2023 1:40P Dictated by: GERMAINE LINO MD This examination was interpreted and the report reviewed and electronically signed by: GERMAINE LINO MD on Jun 26 2023 2:01PM EST [id number] Normal [facility] No Panel Informationon 06-26 IMPRESSION: NEGATIVE Patient presented for imaging guided presurgical localization with reflector placement of a finding described in the right axilla in the ultrasound exam dated 05/15/2023. After scanning the patient for a long time, the finding could not be reproduced. Repeat mammogram was also performed, showing no suspicious mammographic findings in the right breast and axilla, with overall fibroglandular pattern stable from multiple prior exams. Given imaging findings of lack of a real finding, the localization was not performed. Area in the right axilla was described as a lymph node, but the lymph node seen on today's exam is deeper in location and appears benign, unchanged from ultrasound exam from 2020. Patient has an ongoing complaining of focal pain in the right axilla, and had diagnostic imaging done for same reason back in 2016. Clinical follow up is recommended given pain. Patient mentioned that her pain could be related from previous fall. Patient is under the care of Dr. Hilda Edwards (I paged him today). There is no mammographic evidence of malignancy. SUMMARY: Findings and recommendations were discussed with the patient at the time of examination. Germaine Lino M.D., cp/shyam:06/26/2023 14:01:00 Project Development Leader(s): RT Yolanda(R)(M), [facility] OVERALL STUDY BIRADS: 1 Negative Multiple national specialty organizations have released breast cancer screening guidelines for women at average risk for developing breast cancer - guidelines that are based on both evidence and opinion, yet differ on when to start and how often to screen for breast cancer. With representation from Breast Imaging, Internal Medicine, Women's Health, Family Medicine, and Medical/Surgical Oncology, the [facility] has carefully reviewed the data and reached the following consensus: 1) All women should engage in shared decision-making with their providers to decide when to start and how often to screen; 2) All women should have the opportunity to start screening mammography at age 40; 3) For women ages 45-55, we recommend annual screening mammograms; 4) For women ages 55 and over, we support both the transition from an annual to a biennial interval if this aligns more with patient's values and preferences, or continuation with annual screening; 5) All women should discuss with their providers when to stop screening mammograms. Environmental Field Technician: Shyam Transcribe Date/Time: Jun 26 2023 1:40P Dictated by: GERMAINE LINO MD This examination was interpreted and the report reviewed and electronically signed by: GERMAINE LINO MD on Jun 26 2023 2:01PM [facility] DIVISION OF RADIOLOGY Radiology Study observation (narrative) [facility] No Panel InformationOrdered By: [facility] Provider on 06-26-2023 [facility] US Breast - right limitedon 06-26-2023 * * *Final Report* * * DATE OF EXAM: Jun 26 2023 1:40PM [facility] 0594 - [facility] US BREAST LTD RT / PROCEDURE REASON: multiple diagnoses * * * * Physician Interpretation * * * * RESULT: #[id number] - Y[facility]A DIAG W LENARD RT #[id number] - [facility] US BREAST LTD RT UNILATERAL RIGHT DIGITAL DIAGNOSTIC MAMMOGRAM TOMOSYNTHESIS WITH CAD: 06/26/2023 HISTORY: Patient presenting for ultrasound-guided presurgical localization with reflector placement of the described finding in the right axilla. RESULT: TECHNIQUE: The study was acquired using full field digital technology and interpreted from soft copy. Digital Breast Tomosynthesis (DBT) images were obtained and used to assist in the interpretation of this examination. Current study was also evaluated with a Computer Aided Detection (CAD). Comparison is made to exams dated: 06/26/2023 ultrasound - [facility], 10/04/2020 ultrasound, 10/04/2020 mammogram, 04/25/2016 ultrasound, 04/25/2016 mammogram, and 02/18/2014 mammogram - [facility]. There are scattered areas of fibroglandular density in the right breast. Patient presented for imaging guided presurgical localization with reflector placement of a finding described in the right axilla in the ultrasound exam dated 05/15/2023. After scanning the patient for a long time, the finding could not be reproduced. Repeat mammogram was also performed, showing no suspicious mammographic findings in the right breast and axilla, with overall fibroglandular pattern stable from multiple prior exams. Given imaging findings of lack of a real finding, the localization was not performed. No significant masses, calcifications, or other findings are seen in the breast. DIVISION OF RADIOLOGY Provider, [facility] - 06/26/2023 * * *Final Report* * * DATE OF EXAM: Jun 26 2023 1:40PM [facility] 0594 - YADIRA US BREAST LTD RT / PROCEDURE REASON: multiple diagnoses * * * * Physician Interpretation * * * * RESULT: #[id number] - YADIRA DIAG W LENARD RT #[id number] - [facility] US BREAST LTD RT UNILATERAL RIGHT DIGITAL DIAGNOSTIC MAMMOGRAM TOMOSYNTHESIS WITH CAD: 06/26/2023 HISTORY: Patient presenting for ultrasound-guided presurgical localization with reflector placement of the described finding in the right axilla. RESULT: TECHNIQUE: The study was acquired using full field digital technology and interpreted from soft copy. Digital Breast Tomosynthesis (DBT) images were obtained and used to assist in the interpretation of this examination. Current study was also evaluated with a Computer Aided Detection (CAD). Comparison is made to exams dated: 06/26/2023 ultrasound - [facility], 10/04/2020 ultrasound, 10/04/2020 mammogram, 04/25/2016 ultrasound, 04/25/2016 mammogram, and 02/18/2014 mammogram - [facility]. There are scattered areas of fibroglandular density in the right breast. Patient presented for imaging guided presurgical localization with reflector placement of a finding described in the right axilla in the ultrasound exam dated 05/15/2023. After scanning the patient for a long time, the finding could not be reproduced. Repeat mammogram was also performed, showing no suspicious mammographic findings in the right breast and axilla, with overall fibroglandular pattern stable from multiple prior exams. Given imaging findings of lack of a real finding, the localization was not performed. No significant masses, calcifications, or other findings are seen in the breast. IMPRESSION IMPRESSION: NEGATIVE Patient presented for imaging guided presurgical localization with reflector placement of a finding described in the right axilla in the ultrasound exam dated 05/15/2023. After scanning the patient for a long time, the finding could not be reproduced. Repeat mammogram was also performed, showing no suspicious mammographic findings in the right breast and axilla, with overall fibroglandular pattern stable from multiple prior exams. Given imaging findings of lack of a real finding, the localization was not performed. Area in the right axilla was described as a lymph node, but the lymph node seen on today's exam is deeper in location and appears benign, unchanged from ultrasound exam from 2020. Patient has an ongoing complaining of focal pain in the right axilla, and had diagnostic imaging done for same reason back in 2015. Clinical follow up is recommended given pain. Patient mentioned that her pain could be related from previous fall. Patient is under the care of Dr. Hilda Edwards (I paged him today). There is no mammographic evidence of malignancy. SUMMARY: Findings and recommendations were discussed with the patient at the time of examination. Germaine Lino M.D., cp/shyam:06/26/2023 14:01:00 Project Development Leader(s): RT Yolanda(R)(M), [facility] OVERALL STUDY BIRADS: 1 Negative Multiple national specialty organizations have released breast cancer screening guidelines for women at average risk for developing breast cancer - guidelines that are based on both evidence and opinion, yet differ on when to start and how often to screen for breast cancer. With representation from Breast Imaging, Internal Medicine, Women's Health, Family Medicine, and Medical/Surgical Oncology, the [facility] has carefully reviewed the data and reached the following consensus: 1) All women should engage in shared decision-making with their providers to decide when to start and how often to screen; 2) All women should have the opportunity to start screening mammography at age 40; 3) For women ages 45-55, we recommend annual screening mammograms; 4) For women ages 55 and over, we support both the transition from an annual to a biennial interval if this aligns more with patient's values and preferences, or continuation with annual screening; 5) All women should discuss with their providers when to stop screening mammograms. Environmental Field Technician: Shyam Transcribe Date/Time: Jun 26 2023 1:40P Dictated by: GERMAINE LINO MD This examination was interpreted and the report reviewed and electronically signed by: GERMAINE LINO MD on Jun 26 2023 2:01PM [facility] [place] 06-24-2023 EVER Telephone (PREANME) SKY ZAMUDIO ([id number]) 1970 F Date Time Provider Department 06/24/23 JERRY, HILDA T PREANME During your visit today, we recorded the following information about you: Allergies As of Date: 06/24/2023 Noted Allergy Reaction BACTRIM (SULFAMETHOXAZOLE-TRIM ETH*10/18/2010 8 - GI Upset Comments: complained of stomach cramps though had tolerated in the past BEES 05/23/2005 FLOXIN (OFLOXACIN) 04/10/2005 Comments: interaction with valproic acid; caused bipolar exacerbation with depression ( bipolar low ) IVP DYE (IODINE) 05/23/2005 10 - Anaphylaxis KEFLEX (CEPHALEXIN) 11/09/2014 1 - Mental Status Change 9 - Itching Comments: bipolar low at same time; not sure if from med; no rash was associated MANGOES 04/21/2007 OTHER 03/24/2009 Comments: environmental SMOKE 06/11/2007 12 - Shortness of Breath TOPAMAX (TOPIRAMATE) 03/22/2008 Comments: Dizziness ULTRAM (TRAMADOL HCL) 08/09/2014 14 - Other: See Comments Comments: Migraine headaches CEFDINIR 05/09/2023 9 - Itching Date Reviewed: 06/18/2023 Reviewed by: Hilda Edwards MD - Fully Assessed Reason for Visit: Preparations For Surgery [898] Cmt: Pre-op Instructions Prescriptions as of 06/24/2023 - bisacodyl EC (DULCOLAX, BISACODYL,) 5 mg EC tablet Take 1 tablet by mouth once daily as needed for constipation. - nicotine polacrilex (NICORETTE) 4 mg gum Take 1 Each by mouth as needed. - Lactobacillus acidophilus (FLORAJEN ACIDOPHILUS) 20 billion cell capsule Take 1 capsule by mouth once daily. - CPAP/BIPAP/OTHER Type .CPAPSettings into a note to see current settings/supplies/DME information. - promethazine (PHENERGAN) 25 mg tablet Take 1 tablet by mouth every 6 hours as needed for nausea/vomiting. - ipratropium 20 mcg-albuterol 100 mcg (COMBIVENT RESPIMAT) 20-100 mcg/actuation inhaler Inhale 1 Puff as instructed four times daily as needed for wheezing/shortness of breath. - triamcinolone acetonide (NASACORT AQ) 55 mcg nasal inhaler Use 2 Sprays in the nose once daily as needed. - fremanezumab-vfrm (AJOVY AUTOINJECTOR) 225 mg/1.5 mL auto-injector Inject 1.5 mL subcutaneously once every month. - naratriptan (AMERGE) 2.5 mg tablet Take 1 tab at migraine onset. May repeat once in 2 hours if needed. - acetaminophen 325 mg-caffeine 40 mg-butalbital 50 mg (FIORICET) per tablet Take 1 tablet by mouth every 6 hours if needed for headache. No more than 5 days per month. - meclizine (ANTIVERT) 25 mg tab take 1/2 to 1 tablet by mouth every 6 hours if needed for dizziness - ondansetron orally disintegrating (ZOFRAN ODT) 4 mg disintegrating tablet Take 1 tablet by mouth every 6 hours as needed for nausea/vomiting. - multivitamin (TAB-A-JESSICA) tablet Take 1 tablet by mouth once daily. - EPINEPHrine (EPIPEN) 0.3 mg/0.3 mL auto-injector Inject subcutaneously. use as directed if needed after insect bite - diclofenac (VOLTAREN) 1 % topical gel apply topically to affected area as directed if needed - meloxicam (MOBIC) 15 mg tablet take 1 tablet by mouth once daily - pxmixgel-ysxqprgvo-shn rocortisone (CORTISPORIN) otic solution Use 3 Drops in the ears four times daily. As directed - albuterol HFA (VENTOLIN HFA) 90 mcg/actuation inhaler Inhale 2 Puffs as instructed every 4 hours as needed. - zolpidem (AMBIEN) 10 mg Take 1 tablet by mouth daily at bedtime for 120 days. - bisacodyl EC (DULCOLAX, BISACODYL,) 5 mg EC tablet Take 1 tablet by mouth once daily as needed for constipation. - lansoprazole (PREVACID) 30 mg capsule Take 1 capsule by mouth twice daily. - polyethylene glycol 3350 17 gram/dose powder Take 17 g by mouth once daily. Dissolve dose in 4 - 8 ounces of liquid and take as directed. - Benzonatate 200 mg capsule Take 1 capsule by mouth three times daily as needed. - Cholecalciferol, Vitamin D3, 50 mcg (2,000 unit) cap Take 2 capsules by mouth once daily. - montelukast (SINGULAIR) 10 mg tablet Take 1 tablet by mouth daily at bedtime. - cyclobenzaprine (FLEXERIL) 10 mg tablet Take 1 tablet by mouth three times daily as needed. - carBAMazepine XR (TEGRETOL XR) 100 mg 12 hr tablet Take 1 tablet by mouth twice daily. Combine with 200 mg twice daily for 300 mg twice daily dose. - carBAMazepine XR (TEGRETOL XR) 200 mg 12 hr tablet Take 1 tablet by mouth twice daily. Add to 100 mg twice daily for 300 mg twice daily total dose. - loratadine-pseudoephed rine ER (LORATA-D) 10-240 mg Tb24 Take 1 tablet by mouth once daily. - terconazole (TERAZOL 7) 0.4 % vaginal cream Use 1 Applicator vaginally daily at bedtime. - estrogens conjugated (PREMARIN) 0.3 mg tablet Take 0.3 mg by mouth. Taking 3 times per week. Prescribed by outside OB. - hydroCHLOROthiazide (HYDRODIURIL, ESIDRIX) 25 mg tablet Take 1 tablet by mouth once daily as needed (fluid retention). Problem List As Of Date (more content not included)... Normal [facility] 06-18-2023 [facility] Telephone (RAPHAEL) SKY ZAMUDIO ([id number]) 1970 F Date Time Provider Department 06/18/23 HILDA EDWARDS During your visit today, we recorded the following information about you: Stephanie Troncoso 06/18/2023 8:56 AM Signed 06/30/2023 right axillary ultrasound evaluation and Trinh clip placement AMBOY Trinh order to be filled out by surgeon and be faxed to [facility] at [phone] Stephanie Troncoso Apple Picking Supervisor Stephanie Troncoso 06/20/2023 9:30 AM Signed Trinh doctor of audiology order form faxed to [facility] [phone] Confirmation in scanned doc. [facility] to have radiologist review and call to schedule patient Stephanie Troncoso Apple Picking Supervisor Stephanie Troncoso 06/24/2023 10:06 AM Signed Trinh scheduled 06/26/2023 Stephanie Troncoso 06/27/2023 9:33 AM Signed Hilda Edwards MD [place], Liza D, MD Cc: P Wstr General Surgery Pool; P Wstr Surg Scheduling Pool The radiologists could not find suspicious lymph node. Please cancel her for surgery for this Friday Thanks Stephanie Lenz 06/27/2023 9:33 AM Signed Case message to Fabiola to cancel surgery. Contacted patient in regards to message below. Patient wishes to keep 07/15/2023 appointment with Jerry to discuss further Stpehanie Troncoso Apple Picking Supervisor Debora Coffey LPN 06/27/2023 1:27 PM Signed Patient rescheduled for 06/30/23. Debora Coffey LPN Allergies As of Date: 06/18/2023 Noted Allergy Reaction BACTRIM (SULFAMETHOXAZOLE-TRIM ETH*10/18/2010 8 - GI Upset Comments: complained of stomach cramps though had tolerated in the past BEES 05/23/2005 FLOXIN (OFLOXACIN) 04/10/2005 Comments: interaction with valproic acid; caused bipolar exacerbation with depression ( bipolar low ) IVP DYE (IODINE) 05/23/2005 10 - Anaphylaxis KEFLEX (CEPHALEXIN) 11/09/2014 1 - Mental Status Change 9 - Itching Comments: bipolar low at same time; not sure if from med; no rash was associated MANGOES 04/21/2007 OTHER 03/24/2009 Comments: environmental SMOKE 06/11/2007 12 - Shortness of Breath TOPAMAX (TOPIRAMATE) 03/22/2008 Comments: Dizziness ULTRAM (TRAMADOL HCL) 08/09/2014 14 - Other: See Comments Comments: Migraine headaches CEFDINIR 05/09/2023 9 - Itching Date Reviewed: 06/18/2023 Reviewed by: Hilda Edwards MD - Fully Assessed Reason for Visit: 06/30/2023 right axillary ultrasound evaluation and Trinh cl [Other] Prescriptions as of 06/27/2023 - loratadine-pseudoephed rine ER (LORATA-D) 10-240 mg Tb24 Take 1 tablet by mouth once daily. - cyclobenzaprine (FLEXERIL) 10 mg tablet Take 1 tablet by mouth three times a day as needed. - acetaminophen 325 mg-caffeine 40 mg-butalbital 50 mg (FIORICET) per tablet Take 1 tablet by mouth every 6 hours if needed for headache. No more than 5 days per month. - bisacodyl EC (DULCOLAX, BISACODYL,) 5 mg EC tablet Take 1 tablet by mouth once daily as needed for constipation. - nicotine polacrilex (NICORETTE) 4 mg gum Take 1 Each by mouth as needed. - Lactobacillus acidophilus (FLORAJEN ACIDOPHILUS) 20 billion cell capsule Take 1 capsule by mouth once daily. - CPAP/BIPAP/OTHER Type .CPAPSettings into a note to see current settings/supplies/DME information. - promethazine (PHENERGAN) 25 mg tablet Take 1 tablet by mouth every 6 hours as needed for nausea/vomiting. - ipratropium 20 mcg-albuterol 100 mcg (COMBIVENT RESPIMAT) 20-100 mcg/actuation inhaler Inhale 1 Puff as instructed four times daily as needed for wheezing/shortness of breath. - triamcinolone acetonide (NASACORT AQ) 55 mcg nasal inhaler Use 2 Sprays in the nose once daily as needed. - fremanezumab-vfrm (AJOVY AUTOINJECTOR) 225 mg/1.5 mL auto-injector Inject 1.5 mL subcutaneously once every month. - naratriptan (AMERGE) 2.5 mg tablet Take 1 tab at migraine onset. May repeat once in 2 hours if needed. - meclizine (ANTIVERT) 25 mg tab take 1/2 to 1 tablet by mouth every 6 hours if needed for dizziness - ondansetron orally disintegrating (ZOFRAN ODT) 4 mg disintegrating tablet Take 1 tablet by mouth every 6 hours as needed for nausea/vomiting. - multivitamin (TAB-A-JESSICA) tablet Take 1 tablet by mouth once daily. - EPINEPHrine (EPIPEN) 0.3 mg/0.3 mL auto-injector Inject subcutaneously. use as directed if needed after insect bite - diclofenac (VOLTAREN) 1 % topical gel apply topically to affected area as directed if needed - meloxicam (MOBIC) 15 mg tablet take 1 tablet by mouth once daily - wvvlfxnj-dwxhveeqg-tax rocortisone (CORTISPORIN) otic solution Use 3 Drops in the ears four times daily. As directed - albuterol HFA (VENTOLIN HFA) 90 mcg/actuation inhaler Inhale 2 Puffs as instructed every 4 hours as needed. - zolpidem (AMBIEN) 10 mg Take 1 tablet by mouth daily at bedtime for 120 days. - bisacodyl EC (DULCOLAX, BISACODYL,) 5 mg EC tablet Take 1 tablet by mouth once daily (more content not included)... Normal [facility] 36on 06-17-2023 36 Patient informed of result/message within and expressed understanding. Denies any questions or concerns at this time. Normal [facility] 36 ----- Message from NEO Kidd sent at 06/17/2023 7:13 AM EST ----- Please call patient with biopsy results: Final Diagnosis Skin, mid frontal scalp: Hypertrophic actinic keratosis. The spot biopsied came back as a pre-cancer . The biopsy should have taken care of this site and no further treatment is needed. I will re-check this spot at follow up to make sure the lesion has resolved. Please schedule follow up for 8-12 weeks. Remind patient to return for any additional follow up as scheduled, or call for sooner appointment if issues or concerns arise. Normal [facility] CNOVon 06-17-2023 CNOV Office Visit (SWS ) SKY ZAMUDIO ([id number]) 1970 F Date Time Provider Department 06/17/23 3:00 PM HILDA EDWARDS GENTJS During your visit today, we recorded the following information about you: Temperature Pulse Blood pressure Weight 97.4 degrees 116/minute 138/82 114.9 kg Height 1.626 m Theresa Houston LPN 06/17/2023 3:21 PM Signed REVIEW OF SYSTEMS: General: The patient NOTES fatigue, NOTES weight loss, denies weight gain, denies feeling hot, and denies feelings of cold. Eyes: The patient denies glaucoma, denies eye injury/surgery, wears glasses or contacts. Ear/Nose/Throat: The patient NOTES allergies, denies hayfever, denies ear infections, and denies bloody noses. Cardiovascular: The patient denies chest pain, denies heart disease, denies high blood pressure,denies cardiac stent, denies prior heart attack, denies irregular heart beat, denies high cholesterol, denies poor circulation, denies heart failure, other cardiac issues, denies claudication, denies cold feet, denies peripheral arterial stent. Respiratory: The patient denies tuberculosis, NOTES pneumonia, denies frequent cough, denies pulmonary embolism, NOTES shortness of breath, and denies coughing up blood, NOTES asthma Gastrointestinal: The patient denies difficulty swallowing, NOTES acid reflux, denies ulcers, denies vomiting, denies jaundice/hepatitis, denies gallbladder problems, denies black or tarry stools, denies hemorrhoids, denies bleeding from rectum, denies diverticulitis, NOTES constipation, denies diarrhea, denies loss of stool control, and denies hernias. Kidney/Bladder: The patient denies kidney stones, NOTES urine infections, and denies bloody urine. Skin: The patient denies a history of skin cancer, denies bleeding/changing moles, and denies a history of skin rash. Neurologic: The patient denies a history of epilepsy/convulsions, NOTES headaches, denies head/spinal injuries, and denies stroke/TIA. Psychiatric: The patient denies psychiatric medications, NOTES depression, and denies voices, denies substance abuse. Endocrine: The patient denies thyroid disorders, denies diabetes, and denies hormonal problems. Hematologic: The patient denies a history of bruising, denies bleeding, and denies anemia, denies blood clots. Infections: The patient denies a history of measles and mumps, denies rheumatic fever, and denies sexually transmitted diseases. Musculoskeletal: The patient denies back pain/injury, NOTES back problems, denies sciatica, NOTES knee/foot trouble, denies arthritis, or denies gout. When was patient's last Mammogram screening? 2022 Last Colonoscopy: 2022 [place] Richard T, MD 06/18/2023 5:30 AM Signed HISTORY AND PHYSICAL Sky Zamudio 1970 REFERRING PHYSICIAN: Elliott Mahajan MD CHIEF COMPLAINT: Consult (Referred by PCP for colonoscopy consult d/t abdominal pain. Previous polyps with colonoscopy) HPI: The patient is a 48 year old female referred for endoscopy. Sky notes no current colon complaints The patient notes no history of upper GI complaints. Sky has undergone prior endoscopy. I performed colonoscopy in 2015. A small polyp was found in the rectum. The patient was noting change in bowel habits at that time. I performed random biopsies. Pathology returned as: FINAL DIAGNOSIS 1. Ileocecal valve, biopsy (A) - Focal active colitis. 2. Sigmoid colon, biopsy (B) - Colonic mucosa with underlying lymphoid aggregate. 3. Rectum, polyp, biopsy (C) - Fragments of tubular adenoma. LANRE/henri 04/03/2016 Additionally, the patient noted a sense of fullness and slight discomfort in her anterior right axillary area. She had been noticing that for approximately 5 years when I saw her last year for this complaint. No specific abnormalities were noted. Mammogram was unremarkable at that time and ultrasound demonstrated of vague shadowing which I was not able to reproduce in the office. I recommended follow-up mammogram and ultrasound. For her specific axillary issue I last saw her on April 14, 2018. The patient still notes persistent discomfort in the right axillary area. At times she feels she can associate the discomfort with a palpable mass at other times she cannot feel the mass. The patient underwent ultrasound at [facility] which demonstrated a benign-appearing lymph node but now this lymph node had measured 1 cm when prayer lymph nodes in the region had measured half centimeter. The patient is quite concerned about this tenderness in her axilla because she states her mother had exploratory laparotomy and had metastatic lymph nodes and she is concerned this could be malignancy. She notes no breast masses and has no specific breast radiographic findings. Additionally the patient noted recent admission for bacterial (more content not included)... Normal [facility] No Panel Informationon 06-17 [facility] XR CHEST 2V FRONTAL/LATon XR CHEST 2V FRONTAL/LAT * * *Final Report* * * DATE OF EXAM: Jun 17 2023 4:44PM [id number] - XR CHEST 2V FRONTAL/LAT / PROCEDURE REASON: Bacterial pneumonia * * * * Physician Interpretation * * * * EXAMINATION: CHEST RADIOGRAPH (2 VIEW FRONTAL and LATERAL) CLINICAL HISTORY: Bacterial pneumonia MQ: [id number] EXAM DATE/TIME: 06/17/2023 4:44 PM COMPARISON: Chest x-ray on 05/23/2023 RESULT: Lines, tubes, and devices: None. Lungs and pleura: No consolidation. No lung mass. No pleural effusion. No pneumothorax. Cardiomediastinal silhouette: Normal cardiomediastinal silhouette. Bones and soft tissues: There are degenerative changes in the spine. IMPRESSION: No acute radiographic abnormality. Environmental Field Technician: PSCB Transcribe Date/Time: Jun 17 2023 4:47P Dictated by : LAURENCE FOOTE MD This examination was interpreted and the report reviewed and electronically signed by: LAURENCE FOOTE MD on Jun 17 2023 4:48PM EST [id number] Normal [facility] Office Visiton 06-12-2023 Follow-up visit [id number] Sky Zamudio 1970 F Date Provider Department Center 06/12/2023 [id number] [facility] None Family History Problem Relation Age of Onset Crohn's disease Brother Diabetes Maternal Grandmother Cancer Father Comments: skin cancer, type unknown Heart disease Maternal Grandmother Family Status - Relation Status Age at Brother Maternal Grandmother Father Alive Mother Alive Level of Service:67859 RI OFFICE/OUTPATIENT ESTABLISHED MOD MDM 30-39 MIN (25) Reason for Visit and Comments: Skin Check [779] Actinic Keratosis [[id number]] - LV 09/19/2022 ([facility]) Normal [facility] PATINSon 06-12-2023 PATINS BIOPSY / SURGICAL AFTERCARE 1. If a dressing is in place, please leave it for 24 hours unless given other instructions. 2. After that time, remove the initial bandage, and cleanse the area with a mild, fragrance free soap such as Dove, Cetaphil, or CeraVe. 3. Apply Vaseline to the area and cover with a new bandage. Please do not use Neosporin, Polysporin, or Bacitracin, as these may cause unwanted allergic reactions in some patients, and area not necessary for good healing. 4. Repeat the above steps every day for 7 days unless otherwise directed by physician or nurse. 5. If any bleeding occurs, use a clean cotton or gauze, apply firm, direct pressure to the area for 10 to 15 minutes. If the bleeding does not stop, call our office at [phone]. 6. The wound should improve daily. If you notice any increased redness, swelling, drainage, warm to touch, or pain in the area, please notify our office. Please be advised that it can take up to 2 weeks for these sites to heal. Our office will notify you of the results in about 2 weeks. Cryotherapy Aftercare: Redness, swelling and the formation of a blister at the site of cryotherapy are possible and normal reactions. Apply a thin layer of Vaseline or Aquaphor daily to treated sites while healing. Actinic Keratosis What is an actinic keratosis? An actinic keratosis (plural: actinic keratoses) is growth on the surface of the skin that usually appears as a red, hard, crusty or scaly bump. What causes actinic keratoses? Repeated prolonged sun exposure causes skin damage, especially in fair-skinned persons. Sun-damaged skin becomes dry and wrinkled and may form rough, scaly spots called actinic keratoses. These rough spots remain on the skin even though the crust or scale on top is picked off. Why treat actinic keratoses? Actinic keratoses are not skin cancers, but because they may sometimes turn cancerous they are called ?pre-cancerous?. Not all will turn to skin cancer, and it usually takes several years for this to happen. Because it is much easier to treat an actinic keratosis then it is to remove a skin cancer, actinic keratoses should be treated to prevent future skin cancer. How are actinic keratoses treated? The most common way of treating actinic keratoses is to freeze them with liquid nitrogen. Freezing causes scabbing and shedding of the sun-damaged skin. Healing after a removal usually takes two weeks, depending on the size and location of the keratosis. Hands and legs heal more slowly than the face. The skin?s final appearance is usually excellent. There are several topical medications that can be used to treat actinic keratoses. These medications generally have side effects of redness, crusting, and pain. Some are used for a few days, and some for several months before the actinic keratosis is completely gone. Photodynamic therapy is another alternative to freezing actinic keratoses. This treatment is done in a physician?s office. A medication is applied to the area of skin with actinic keratoses, and it is allowed to soak in for one or more hours. A special light is then applied to the skin. Side effects include redness, burning, and peeling. How can you prevent actinic keratoses? Protection from the sun is the best way to prevent actinic keratoses. The use of proper clothing and sunscreens can prevent the sun damage that leads to an actinic keratosis. Unfortunately, some sun damage is permanent. Once sun damage has progressed to the point where actinic keratoses develop, new keratoses may appear even without further sun exposure. However, even in skin that is already heavily sun damaged, good sun protection can help reduce the number of actinic keratoses that will appear. [facility] Progress Noteon 06-12-2023 Progress Note DATE OF SERVICE: 06/12/2023 PATIENT NAME: Sky Zamudio : 1970 AGE: 53 y.o. CLINIC NUMBER: [id number] Visit type: Established patient Chief Complaint Patient presents with Skin Check Actinic Keratosis LV 09/19/2022 ([facility]) Subjective HISTORY OF PRESENT ILLNESS: Sky Zaumdio is a 53 y.o. who presents to the office for an upper body exam. Patient's last FSE was done on 09/19/2022. C/o-pruritus located on the shoulders x few years. Patient states the pruritus is worse during winter/cold months. Admits previous treatment with Hemp lotion. F/u- actinic keratoses located on the face, forehead and scalp; last seen 09/19/2022. Patient was prescribed Efudex cream at this visit to use on her face. Patient was treated with LN2 to her left forehead and mid frontal scalp x 2 at this visit. Admits redness, roughness, flaking, itching, bleeding, and tenderness. Patient does not believe that the areas have resolved. Patient has no?h/o of ATN. Patient has a?h/o of Aks; tx with cryotherapy and efudex. Patient has no?personal h/o skin cancer. Patient has no?family h/o melanoma; father and brother- unknown type. Are you or ? No History of pacemaker/ defibrillator? No History of HIV/ Hep C? No Allergies to Lidocaine, Epinephrine, Latex or Adhesive? No Social History: Born/raised in [place]. Outdoor sports: No. Excessive sun exposure: Yes Boated regularly: No Worked on farmed or life agent: No Used tanning beds: No Patient does wear SPF. Patient does use additional sun protection measures. Review of Systems Dermatology: as per HPI, otherwise negative There were no vitals filed for this visit. PHYSICAL EXAM: GENERAL APPEARANCE:?alert and oriented x3, well developed and well nourished. PSYCH: appropriate mood and affect DERMATOLOGY: 1. Neoplasm of uncertain behavior of skin Mid Frontal Scalp Scaling plaque on erythematous base Skin Biopsy Type of biopsy: tangential Informed consent: discussed and consent obtained Timeout: patient name, date of , surgical site, and procedure verified Anesthesia: the lesion was anesthetized in a standard fashion Anesthetic: 1% lidocaine w/ epinephrine 1-100,000 buffered w/ 8.4% NaHCO3 Instrument used: DermaBlade Hemostasis achieved with: electrodesiccation Outcome: patient tolerated procedure well Post-procedure details: sterile dressing applied and wound care instructions given Dressing type: petrolatum and bandage Specimen A - Tissue exam Differential Diagnosis: Prurigo Nodule vs. AK vs. NMSC vs. other Check Margins: No Biopsy recommended. Patient expresses understanding and is in agreement with the plan. Biopsy (x1) obtained today. Patient educated that we will call with the biopsy results within 2 weeks. Care instructions reviewed and written instructions provided to patient. 2. Actinic keratosis Left Shoulder - Posterior [place] scaly macule(s) Patient educated on actinic keratosis and the possibility of transformation into SCC. Treatment options are discussed with risks and benefits reviewed. Cryotherapy is agreed upon and performed. Reassured that redness, swelling and the formation of a blister at the site of cryotherapy are possible reactions. After care instructions are given and reviewed. Patient to apply Vaseline to treated sites while healing. Patient to monitor for resolution. If unresolved after 2-3 months, patient to return for further evaluation and management Cryotherapy Actinic Keratosis: Medical Necessity: It was explained to the patient that actinic keratoses are precancerous. Consent: The patient understood all the risks and benefits prior to treatment. The risks explained included scarring, hyper and/or hypopigmentation. Although this treatment is highly effective, recurrences do occur and this was explained to the patient. The patient further understood that these lesions are precancerous and may develop into a malignancy. Method: Liquid nitrogen was used to treat the lesion(s) with two freeze-thaw cycles. Post-op: The patient was instructed to clean the site normally twice a day. Signs of infection were reviewed and patient was instructed to call if he/ she develops increasing pain, purulent drainage, or beefy redness. The patient was informed that a blister may occur at the cryo site and that this is an expected event. Sun protection was reviewed and patient advised to use sunscreen with SPF 30 or greater on exposed skin when outdoors. Post-op instructions were given orally and in writing. Cryotherapy, skin lesion - Left Shoulder - Posterior 3. 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 [facility] 06-09-2023 CN Office Visit (INTMWS ) SKY ZAMUDIO ([id number]) 1970 F Date Time Provider Department 06/09/23 9:00 AM ELLIOTT MAHAJAN INTMWS During your visit today, we recorded the following information about you: Elliott Mahajan MD 06/09/2023 10:40 PM Signed This note was created using NoteWriter. Subjective Sky Zamudio is a 53 year old female. Patient presents with: F/U 6 months SUBJECTIVE: Sky Zamudio is a 53 year old year old lady here today for 6 month follow up appointment for review of medical conditions. States has not been using CPAP the past year. States that was changing setting in middle of the night. [place] like throat was raw in middle of AM. Would reset but the next night would change in middle of night. Was taken by [facility] and was never returned. They were supposed to fix it or replace the unit. Wakes up tired. Does need CPAP replaced. Told to discuss with [facility] if will need to repeat sleep study.States that had PSG done years ago at [facility]. Also needs to determine where to get new CPAP (DME supplier). States that had pneumonia and rhinovirus. Was quarantined because of the illness. Still has cough productive for green phlegm. Finished antibiotic last week. 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 Noted has yeast infection after completing antibiotic courses. Was treated for yeast infection during course of antibiotics. PAST MEDICAL HISTORY Diagnosis Date Abdominal pain, periumbilic Acute gastritis without mention of hemorrhage Atrophic vaginitis 07/14/2018 Bipolar disorder, unspecified ([facility]) Chronic rhinitis Closed fracture of navicular (scaphoid) bone of foot 12/10/2011 Contact dermatitis and other eczema, due to unspecified cause Diaphragmatic hernia without mention of obstruction or gangrene Dysmenorrhea decreased Esophageal reflux Excessive or frequent menstruation Heavy periods resolved Irregular menstrual cycle Irregular periods Migraine headache Obesity, unspecified Other specified gastritis SLEEP APNEA NOS 12/12/200708: effic 87%, no stage III, AHI 5.5, REM 20.9, supine 3, snoring 98%-rec CPAP trial Stress incontinence Unspecified asthma(493.90) Unspecified symptom associated with female genital organs Current Outpatient Medications Medication Sig Lactobacillus acidophilus (FLORAJEN ACIDOPHILUS) 20 billion cell capsule Take 1 capsule by mouth once daily. CPAP/BIPAP/OTHER Type .CPAPSettings into a note to see current settings/supplies/DME information. promethazine (PHENERGAN) 25 mg tablet Take 1 tablet by mouth every 6 hours as needed for nausea/vomiting. ipratropium 20 mcg-albuterol 100 mcg (COMBIVENT RESPIMAT) 20-100 mcg/actuation inhaler Inhale 1 Puff as instructed four times daily as needed for wheezing/shortness of breath. triamcinolone acetonide (NASACORT AQ) 55 mcg nasal inhaler Use 2 Sprays in the nose once daily as needed. fremanezumab-vfrm (AJOVY AUTOINJECTOR) 225 mg/1.5 mL auto-injector Inject 1.5 mL subcutaneously once every month. naratriptan (AMERGE) 2.5 mg tablet Take 1 tab at migraine onset. May repeat once in 2 hours if needed. acetaminophen 325 mg-caffeine 40 mg-butalbital 50 mg (FIORICET) per tablet Take 1 tablet by mouth every 6 hours if needed for headache. No more than 5 days per month. meclizine (ANTIVERT) 25 mg tab take 1/2 to 1 tablet by mouth every 6 hours if needed for dizziness ondansetron orally disintegrating (ZOFRAN ODT) 4 mg disintegrating tablet Take 1 tablet by mouth every 6 hours as needed for nausea/vomiting. multivitamin (TAB-A-JESSICA) tablet Take 1 tablet by mouth once daily. EPINEPHrine (EPIPEN) 0.3 mg/0.3 mL auto-injector Inject subcutaneously. use as directed if needed after insect bite diclofenac (VOLTAREN) 1 % topical gel apply topically to affected area as directed if needed meloxicam (MOBIC) 15 mg tablet take 1 tablet by mouth once daily bvyhjxgk-juxxfpzpu-upm rocortisone (CORTISPORIN) otic solution Use 3 Drops in the ears four times daily. As directed albuterol HFA (VENTOLIN HFA) 90 mcg/actuation inhaler Inhale 2 Puffs as instructed every 4 hours as needed. bisacodyl EC (DULCOLAX, BISACODYL,) 5 mg EC tablet Take 1 tablet by mouth once daily as needed for constipation. lansoprazole (PREVACID) 30 mg capsule Take 1 capsule by mouth twice daily. polyethylene glycol 3350 17 gram/dose powder Take 17 g by mouth once daily. Dissolve dose in 4 - 8 ounces of liquid and take as directed. Benzonatate 200 mg capsule Take 1 capsule by mouth three times daily as needed. Cholecalciferol, Vitamin D3, 50 mcg (2,000 unit) cap Take 2 capsules by mouth once daily. montelukast (SINGULAIR) 10 mg tablet Take 1 tablet by mouth daily at bedtime. cyclobenzaprine (FLEXERIL) 10 mg tablet Take 1 tablet by mouth three times daily as needed. carBAMazepine XR (TEGRE (more content not included)... Normal [facility] XR Chest PA and Lateralon IMPRESSION: No acute radiographic abnormality. Environmental Field Technician: KATHRYN Transcribe Date/Time: May 23 2023 4:56P Dictated by : LAURENCE FOOTE MD This examination was interpreted and the report reviewed and electronically signed by: LAURENCE FOOTE MD on May 23 2023 4:57PM [facility] DIVISION OF RADIOLOGY * * *Final Report* * * DATE OF EXAM: May 23 2023 2:35PM WOX 5291 - XR CHEST 2V FRONTAL/LAT / PROCEDURE REASON: Pneumonia due to infectious organism, unspecified laterality, unspecified part o * * * * Physician Interpretation * * * * EXAMINATION: CHEST RADIOGRAPH (2 VIEW FRONTAL & LATERAL) CLINICAL HISTORY: Pneumonia due to infectious organism, unspecified laterality, unspecified part of lung MQ: XC2_6 EXAM DATE/TIME: 05/23/2023 2:35 PM COMPARISON: Chest x-ray on 05/09/2023 RESULT: Lines, tubes, and devices: None. Lungs and pleura: No consolidation. No lung mass. No pleural effusion. No pneumothorax. Cardiomediastinal silhouette: Normal cardiomediastinal silhouette. Bones and soft tissues: There are degenerative changes in the spine. DIVISION OF RADIOLOGY Provider, [facility] - 05/23/2023 * * *Final Report* * * DATE OF EXAM: May 23 2023 2:35PM WOX 5291 - XR CHEST 2V FRONTAL/LAT / PROCEDURE REASON: Pneumonia due to infectious organism, unspecified laterality, unspecified part o * * * * Physician Interpretation * * * * EXAMINATION: CHEST RADIOGRAPH (2 VIEW FRONTAL & LATERAL) CLINICAL HISTORY: Pneumonia due to infectious organism, unspecified laterality, unspecified part of lung MQ: XC2_6 EXAM DATE/TIME: 05/23/2023 2:35 PM COMPARISON: Chest x-ray on 05/09/2023 RESULT: Lines, tubes, and devices: None. Lungs and pleura: No consolidation. No lung mass. No pleural effusion. No pneumothorax. Cardiomediastinal silhouette: Normal cardiomediastinal silhouette. Bones and soft tissues: There are degenerative changes in the spine. IMPRESSION IMPRESSION: No acute radiographic abnormality. Environmental Field Technician: KATHRYN Transcribe Date/Time: May 23 2023 4:56P Dictated by : LAURENCE FOOTE MD This examination was interpreted and the report reviewed and electronically signed by: LAURENCE FOOTE MD on May 23 2023 4:57PM EST [facility] Radiology Study observation (narrative) [facility] XR Chest PA and LateralOrder ed By: [facility] Provider on 05-23-2023 [facility] XR CHEST 2V FRONTAL/LATon [facility] XR Chest PA and Lateralon IMPRESSION: Small hazy opacity in the lingula cannot be excluded. Consider follow-up. Environmental Field Technician: KATHRYN Transcribe Date/Time: May 09 2023 1:49P Dictated by : LAURENCE FOOTE MD This examination was interpreted and the report reviewed and electronically signed by: LAURENCE FOOTE MD on May 09 2023 1:50PM EST DIVISION OF RADIOLOGY * * *Final Report* * * DATE OF EXAM: May 09 2023 12:06PM WOX 5291 - XR CHEST 2V FRONTAL/LAT / PROCEDURE REASON: multiple diagnoses * * * * Physician Interpretation * * * * EXAMINATION: CHEST RADIOGRAPH (2 VIEW FRONTAL & LATERAL) CLINICAL HISTORY: Pneumonia due to infectious organism, unspecified laterality, unspecified part of lung Mild persistent asthma without complication MQ: XC2_6 EXAM DATE/TIME: 05/09/2023 12:06 PM COMPARISON: Chest x-ray on 08/27/2022 RESULT: Lines, tubes, and devices: None. Lungs and pleura: There appears to be a small hazy opacity in the lingula, better seen on lateral view. The right lung is clear. No mass lesion identified. No pleural effusions or pneumothorax. Cardiomediastinal silhouette: Stable cardiomediastinal silhouette. Bones and soft tissues: The spine shows degenerative changes. DIVISION OF RADIOLOGY Provider, [facility] - 05/09/2023 * * *Final Report* * * DATE OF EXAM: May 09 2023 12:06PM WOX 5291 - XR CHEST 2V FRONTAL/LAT / PROCEDURE REASON: multiple diagnoses * * * * Physician Interpretation * * * * EXAMINATION: CHEST RADIOGRAPH (2 VIEW FRONTAL & LATERAL) CLINICAL HISTORY: Pneumonia due to infectious organism, unspecified laterality, unspecified part of lung Mild persistent asthma without complication MQ: XC2_6 EXAM DATE/TIME: 05/09/2023 12:06 PM COMPARISON: Chest x-ray on 08/27/2022 RESULT: Lines, tubes, and devices: None. Lungs and pleura: There appears to be a small hazy opacity in the lingula, better seen on lateral view. The right lung is clear. No mass lesion identified. No pleural effusions or pneumothorax. Cardiomediastinal silhouette: Stable cardiomediastinal silhouette. Bones and soft tissues: The spine shows degenerative changes. IMPRESSION IMPRESSION: Small hazy opacity in the lingula cannot be excluded. Consider follow-up. Environmental Field Technician: KATHRYN Transcribe Date/Time: May 09 2023 1:49P Dictated by : LAURENCE FOOTE MD This examination was interpreted and the report reviewed and electronically signed by: LAURENCE FOOTE MD on May 09 2023 1:50PM EST [facility] Radiology Study observation (narrative) [facility] XR Chest PA and LateralOrder ed By: [facility] Provider on 05-09-2023 [facility] .Auto Diffon 05-06-2023 Basophil, Absolute 0.1 10 3/mcL Normal 0.0-0.3 [facility] [place] Comment on above: Performed By: #### M DW, GFR, BMP, ANEU, CBC, ADIFF #### [address] [address] Basophils/100 WBC (Bld) 0.5 % Normal 0.0-2.5 [facility] ([place]) Comment on above: Performed By: #### M DW, GFR, BMP, ANEU, CBC, ADIFF #### [address] [place], [place] [address] Eosinophil, Absolute 0.0 10 3/mcL Normal 0.0-0.7 [facility] ([place]) Comment on above: Performed By: #### M DW, GFR, BMP, ANEU, CBC, ADIFF #### [address] [address] Eosinophils/100 WBC (Bld) 0.1 % Normal 0.0-6.0 [facility] ([place] Comment on above: Performed By: #### M DW, GFR, BMP, ANEU, CBC, ADIFF #### [address] [address] Lymphocyte, Absolute 1.7 10 3/mcL Normal 0.9-4.3 [facility] ([place] Comment on above: Performed By: #### M DW, GFR, BMP, ANEU, CBC, ADIFF #### [address] [address] Lymphocytes/100 WBC (Bld) 10.8 % Low 20.0-40.0 [facility] ([place] Comment on above: Performed By: #### M DW, GFR, BMP, ANEU, CBC, ADIFF #### [address] [address] Monocyte, Absolute 0.8 10 3/mcL Normal 0.1-1.4 [facility] [place] Comment [place] above: Performed By: #### M DW, GFR, BMP, ANEU, CBC, ADIFF #### [address] [address] Monocytes/100 WBC (Bld) 4.9 % Normal 2.0-13.0 [facility] ([place] Comment on above: Performed By: #### M DW, GFR, BMP, ANEU, CBC, ADIFF #### [address] [address] Neutrophils/100 WBC (Bld) 83.7 % High 50.0-75.0 [facility] ([place] Comment on above: Performed By: #### M DW, GFR, BMP, ANEU, CBC, ADIFF #### [address] [address] .GFRon 05-06-2023 GFR >60 Normal [facility] [place] Comment on above: Result Comment: GFR Population mean for , Non- Americans Ages 20-29 = 116 mL/min/1.73 sq.m. Ages 30-39 = 107 mL/min/1.73 sq.m. Ages 40-49 = 99 mL/min/1.73 sq.m. Ages 50-59 = 93 mL/min/1.73 sq.m. Ages 60-69 = 85 mL/min/1.73 sq.m. Ages 70+ = 75 mL/min/1.73 sq.m. Chronic Kidney Disease: Less than 60 mL/min/1.73 square meters End Stage Renal Disease: Less than 15 mL/min/1.73 square meters Performed By: #### M DW, GFR, BMP, ANEU, CBC, ADIFF #### [address] [address] GFR Non- >60 Normal [facility] ([place] Comment on above: Result Comment: GFR Population mean for , Non- Americans Ages 20-29 = 116 mL/min/1.73 sq.m. Ages 30-39 = 107 mL/min/1.73 sq.m. Ages 40-49 = 99 mL/min/1.73 sq.m. Ages 50-59 = 93 mL/min/1.73 sq.m. Ages 60-69 = 85 mL/min/1.73 sq.m. Ages 70+ = 75 mL/min/1.73 sq.m. Chronic Kidney Disease: Less than 60 mL/min/1.73 square meters End Stage Renal Disease: Less than 15 mL/min/1.73 square meters Performed By: #### M DW, GFR, BMP, ANEU, CBC, ADIFF #### [address] [address] .NEUABSon 05-06-2023 Neutrophil, Absolute 13.3 10 3/mcL High 2.3-8.1 [facility] ([place]) Comment on above: Performed By: #### M DW, GFR, BMP, ANEU, CBC, ADIFF #### [address] [address] BMPon 05-06-2023 BUN/Creatinine Ratio 24.6 ratio High 10.0-22.0 [facility] [place] Comment [place] above: Performed By: #### M DW, GFR, BMP, ANEU, CBC, ADIFF #### [address] [address] Calcium [Mass/Vol] 9.4 mg/dL Normal 8.7-10.4 [facility] ([place]) Comment on above: Performed By: #### M DW, GFR, BMP, ANEU, CBC, ADIFF #### [address] [address] Chloride [Moles/Vol] 107 mmol/L Normal 98-110 [facility] [place] Comment [place] above: Performed By: #### M DW, GFR, BMP, ANEU, CBC, ADIFF #### [place] [address] CO2 [Moles/Vol] 28 mmol/L Normal 22-32 [facility] ([place] Comment on above: Performed By: #### M DW, GFR, BMP, ANEU, CBC, ADIFF #### [address] [address] Creatinine [Mass/Vol] 0.65 mg/dL Normal 0.50-1.20 [facility] ([place]) Comment on above: Performed By: #### M DW, GFR, BMP, ANEU, CBC, ADIFF #### [address] [address] Electrolyte Balance 7.0 mEq/L Normal 4.0-15.0 [facility] ([place]) Comment on above: Performed By: #### M DW, GFR, BMP, ANEU, CBC, ADIFF #### [address] [address] Glucose [Mass/Vol] 121 mg/dL High 70-110 [facility] ([place] Comment on above: Performed By: #### M DW, GFR, BMP, ANEU, CBC, ADIFF #### [address] [address] Potassium [Moles/Vol] 5.0 mmol/L Normal 3.5-5.0 [facility] ([place] Comment on above: Result Comment: Spec imen slightly hemolyzed. Performed By: #### M DW, GFR, BMP, ANEU, CBC, ADIFF #### [address] [address] Sodium [Moles/Vol] 142 mmol/L Normal 136-145 [facility] ([place] Comment on above: Performed By: #### M DW, GFR, BMP, ANEU, CBC, ADIFF #### [address] [address] Urea nitrogen [Mass/Vol] 16.0 mg/dL Normal 8.0-22.0 [facility] ([place] Comment on above: Performed By: #### M DW, GFR, BMP, ANEU, CBC, ADIFF #### [address] [address] CBCon 05-06-2023 Erythrocyte distribution width (RBC) [Ratio] 13.7 % Normal 11.5-15.5 [facility] ([place] Comment on above: Performed By: #### M DW, GFR, BMP, ANEU, CBC, ADIFF #### [address] [address] Hematocrit (Bld) [Volume fraction] 43.3 % Normal 34.0-46.0 [facility] ([place] Comment on above: Performed By: #### M DW, GFR, BMP, ANEU, CBC, ADIFF #### [address] [address] Hgb 14.3 G/dL Normal 12.0-16.0 [facility] ([place] Comment on above: Performed By: #### M DW, GFR, BMP, ANEU, CBC, ADIFF #### [address] [address] MCH (RBC) [Entitic mass] 30.3 pg Normal 27.0-33.0 [facility] ([place] Comment on above: Performed By: #### M DW, GFR, BMP, ANEU, CBC, ADIFF #### [address] [address] MCHC 33.2 G/dL Normal 32.0-36.0 [facility] ([place] Comment on above: Performed By: #### M DW, GFR, BMP, ANEU, CBC, ADIFF #### [address] [address] MCV (RBC) [Entitic vol] 91.4 fL Normal 80.0-99.0 [facility] ([place] Comment on above: Performed By: #### M DW, GFR, BMP, ANEU, CBC, ADIFF #### [address] [address] Platelet 332 10 3/mcL Normal 150-450 [facility] ([place] Comment on above: Performed By: #### M DW, GFR, BMP, ANEU, CBC, ADIFF #### [address] [address] Platelet mean volume (Bld) [Entitic vol] 6.7 fL Normal 6.6-10.5 [facility] ([place] Comment on above: Performed By: #### M DW, GFR, BMP, ANEU, CBC, ADIFF #### [address] [address] RBC 4.73 10 6/mcL Normal 4.10-5.30 [facility] ([place] Comment on above: Performed By: #### M DW, GFR, BMP, ANEU, CBC, ADIFF #### [address] [address] WBC 16.0 10 3/mcL High 4.5-10.8 [facility] ([place] Comment on above: Performed By: #### M DW, GFR, BMP, ANEU, CBC, ADIFF #### [address] [address] MGon 05-06-2023 Magnesium [Mass/Vol] 2.0 mg/dL Normal 1.6-2.4 [facility] [place] Comment [place] above: Performed By: #### M DW, GFR, BMP, ANEU, CBC, ADIFF #### [address] [address] .Auto Diffon 05-05-2023 Basophil, Absolute 0.0 10 3/mcL Normal 0.0-0.3 [facility] [place] Comment on above: Performed By: #### M DW, GFR, BMP, ANEU, CBC, ADIFF #### [address] [address] Basophils/100 WBC (Bld) 0.2 % Normal 0.0-2.5 [facility] ([place] Comment on above: Performed By: #### M DW, GFR, BMP, ANEU, CBC, ADIFF #### [address] [address] Eosinophil, Absolute 0.0 10 3/mcL Normal 0.0-0.7 [facility] ([place] Comment on above: Performed By: #### M DW, GFR, BMP, ANEU, CBC, ADIFF #### [address] [address] Eosinophils/100 WBC (Bld) 0.1 % Normal 0.0-6.0 [facility] ([place] Comment on above: Performed By: #### M DW, GFR, BMP, ANEU, CBC, ADIFF #### [address] [address] Lymphocyte, Absolute 1.8 10 3/mcL Normal 0.9-4.3 [facility] ([place] Comment on above: Performed By: #### M DW, GFR, BMP, ANEU, CBC, ADIFF #### [address] [address] Lymphocytes/100 WBC (Bld) 9.3 % Low 20.0-40.0 [facility] ([place] Comment on above: Performed By: #### M DW, GFR, BMP, ANEU, CBC, ADIFF #### [address] [address] Monocyte, Absolute 0.8 10 3/mcL Normal 0.1-1.4 [facility] [place] Comment [place] above: Performed By: #### M DW, GFR, BMP, ANEU, CBC, ADIFF #### [address] [address] Monocytes/100 WBC (Bld) 4.3 % Normal 2.0-13.0 [facility] ([place] Comment on above: Performed By: #### M DW, GFR, BMP, ANEU, CBC, ADIFF #### [address] [address] Neutrophils/100 WBC (Bld) 86.1 % High 50.0-75.0 [facility] ([place] Comment on above: Performed By: #### M DW, GFR, BMP, ANEU, CBC, ADIFF #### [address] [address] .GFRon 05-05-2023 GFR >60 Normal [facility] [place] Comment on above: Result Comment: GFR Population mean for , Non- Americans Ages 20-29 = 116 mL/min/1.73 sq.m. Ages 30-39 = 107 mL/min/1.73 sq.m. Ages 40-49 = 99 mL/min/1.73 sq.m. Ages 50-59 = 93 mL/min/1.73 sq.m. Ages 60-69 = 85 mL/min/1.73 sq.m. Ages 70+ = 75 mL/min/1.73 sq.m. Chronic Kidney Disease: Less than 60 mL/min/1.73 square meters End Stage Renal Disease: Less than 15 mL/min/1.73 square meters Performed By: #### M DW, GFR, BMP, ANEU, CBC, ADIFF #### [address] [address] GFR Non- >60 Normal [facility] ([place] Comment on above: Result Comment: GFR Population mean for , Non- Americans Ages 20-29 = 116 mL/min/1.73 sq.m. Ages 30-39 = 107 mL/min/1.73 sq.m. Ages 40-49 = 99 mL/min/1.73 sq.m. Ages 50-59 = 93 mL/min/1.73 sq.m. Ages 60-69 = 85 mL/min/1.73 sq.m. Ages 70+ = 75 mL/min/1.73 sq.m. Chronic Kidney Disease: Less than 60 mL/min/1.73 square meters End Stage Renal Disease: Less than 15 mL/min/1.73 square meters Performed By: #### M DW, GFR, BMP, ANEU, CBC, ADIFF #### [address] [address] .NEUABSon 05-05-2023 Neutrophil, Absolute 16.5 10 3/mcL High 2.3-8.1 [facility] ([place]) Comment on above: Performed By: #### M DW, GFR, BMP, ANEU, CBC, ADIFF #### [address] [address] BMPon 05-05-2023 BUN/Creatinine Ratio 21.5 ratio Normal 10.0-22.0 [facility] [place] Comment on above: Performed By: #### M DW, GFR, BMP, ANEU, CBC, ADIFF #### [address] [address] Calcium [Mass/Vol] 9.3 mg/dL Normal 8.7-10.4 [facility] ([place] Comment on above: Performed By: #### M DW, GFR, BMP, ANEU, CBC, ADIFF #### [address] [address] Chloride [Moles/Vol] 106 mmol/L Normal 98-110 [facility] [place] Comment on above: Performed By: #### M DW, GFR, BMP, ANEU, CBC, ADIFF #### [address] [address] CO2 [Moles/Vol] 27 mmol/L Normal 22-32 [facility] ([place] Comment on above: Performed By: #### M DW, GFR, BMP, ANEU, CBC, ADIFF #### [address] [address] Creatinine [Mass/Vol] 0.65 mg/dL Normal 0.50-1.20 [facility] ([place] Comment on above: Performed By: #### M DW, GFR, BMP, ANEU, CBC, ADIFF #### [address] [address] Electrolyte Balance 7.0 mEq/L Normal 4.0-15.0 [facility] ([place] Comment on above: Performed By: #### M DW, GFR, BMP, ANEU, CBC, ADIFF #### [address] [address] Glucose [Mass/Vol] 135 mg/dL High 70-110 [facility] ([place] Comment on above: Performed By: #### M DW, GFR, BMP, ANEU, CBC, ADIFF #### [address] [address] Potassium [Moles/Vol] 5.3 mmol/L High 3.5-5.0 [facility] ([place] Comment on above: Result Comment: Spec imen slightly hemolyzed. Performed By: #### M DW, GFR, BMP, ANEU, CBC, ADIFF #### [address] [address] Sodium [Moles/Vol] 140 mmol/L Normal 136-145 [facility] ([place] Comment on above: Performed By: #### M DW, GFR, BMP, ANEU, CBC, ADIFF #### [address] [address] Urea nitrogen [Mass/Vol] 14.0 mg/dL Normal 8.0-22.0 [facility] ([place] Comment on above: Performed By: #### M DW, GFR, BMP, ANEU, CBC, ADIFF #### [address] [address] CBCon 05-05-2023 Erythrocyte distribution width (RBC) [Ratio] 13.8 % Normal 11.5-15.5 [facility] ([place] Comment on above: Performed By: #### M DW, GFR, BMP, ANEU, CBC, ADIFF #### [address] [address] Hematocrit (Bld) [Volume fraction] 44.5 % Normal 34.0-46.0 [facility] ([place] Comment on above: Performed By: #### M DW, GFR, BMP, ANEU, CBC, ADIFF #### [address] [address] Hgb 14.6 G/dL Normal 12.0-16.0 [facility] ([place] Comment on above: Performed By: #### M DW, GFR, BMP, ANEU, CBC, ADIFF #### [address] [address] MCH (RBC) [Entitic mass] 30.0 pg Normal 27.0-33.0 [facility] ([place] Comment on above: Performed By: #### M DW, GFR, BMP, ANEU, CBC, ADIFF #### [address] [address] MCHC 32.8 G/dL Normal 32.0-36.0 [facility] ([place] Comment on above: Performed By: #### M DW, GFR, BMP, ANEU, CBC, ADIFF #### [address] [address] MCV (RBC) [Entitic vol] 91.7 fL Normal 80.0-99.0 [facility] ([place] Comment on above: Performed By: #### M DW, GFR, BMP, ANEU, CBC, ADIFF #### [address] [address] Platelet 338 10 3/mcL Normal 150-450 [facility] ([place] Comment on above: Performed By: #### M DW, GFR, BMP, ANEU, CBC, ADIFF #### [address] [address] Platelet mean volume (Bld) [Entitic vol] 7.2 fL Normal 6.6-10.5 [facility] ([place] Comment on above: Performed By: #### M DW, GFR, BMP, ANEU, CBC, ADIFF #### [address] [address] RBC 4.85 10 6/mcL Normal 4.10-5.30 [facility] ([place] Comment on above: Performed By: #### M DW, GFR, BMP, ANEU, CBC, ADIFF #### [address] [address] WBC 19.1 10 3/mcL High 4.5-10.8 [facility] ([place] Comment on above: Performed By: #### M DW, GFR, BMP, ANEU, CBC, ADIFF #### [address] [address] Antony 05-05-2023 Potassium [Moles/Vol] 4.9 mmol/L Normal 3.5-5.0 [facility] ([place] Comment on above: Result Comment: Spec imen slightly hemolyzed. Performed By: #### K #### [address] [address] MGon 05-05-2023 Magnesium [Mass/Vol] 2.0 mg/dL Normal 1.6-2.4 [facility] [place] Comment on above: Performed By: #### M DW, GFR, BMP, ANEU, CBC, ADIFF #### [address] [address] .Auto Diffon 05-04-2023 Basophil, Absolute 0.0 10 3/mcL Normal 0.0-0.3 [facility] [place] Comment on above: Performed By: #### M DW, GFR, BMP, ANEU, CBC, ADIFF #### [address] [address] Basophils/100 WBC (Bld) 0.2 % Normal 0.0-2.5 [facility] ([place] Comment on above: Performed By: #### M DW, GFR, BMP, ANEU, CBC, ADIFF #### [address] [address] Eosinophil, Absolute 0.0 10 3/mcL Normal 0.0-0.7 [facility] ([place] Comment on above: Performed By: #### M DW, GFR, BMP, ANEU, CBC, ADIFF #### [address] [address] Eosinophils/100 WBC (Bld) 0.1 % Normal 0.0-6.0 [facility] ([place] Comment on above: Performed By: #### M DW, GFR, BMP, ANEU, CBC, ADIFF #### [address] [address] Lymphocyte, Absolute 1.1 10 3/mcL Normal 0.9-4.3 [facility] ([place] Comment on above: Performed By: #### M DW, GFR, BMP, ANEU, CBC, ADIFF #### [address] [address] Lymphocytes/100 WBC (Bld) 6.9 % Low 20.0-40.0 [facility] ([place] Comment on above: Performed By: #### M DW, GFR, BMP, ANEU, CBC, ADIFF #### [address] [address] Monocyte, Absolute 0.5 10 3/mcL Normal 0.1-1.4 [facility] [place] Comment on above: Performed By: #### M DW, GFR, BMP, ANEU, CBC, ADIFF #### [address] [address] Monocytes/100 WBC (Bld) 3.3 % Normal 2.0-13.0 [facility] ([place] Comment on above: Performed By: #### M DW, GFR, BMP, ANEU, CBC, ADIFF #### [address] [address] Neutrophils/100 WBC (Bld) 89.5 % High 50.0-75.0 [facility] ([place] Comment on above: Performed By: #### M DW, GFR, BMP, ANEU, CBC, ADIFF #### [address] [address] .GFRon 05-04-2023 GFR >60 Normal [facility] [place] Comment on above: Result Comment: GFR Population mean for , Non- Americans Ages 20-29 = 116 mL/min/1.73 sq.m. Ages 30-39 = 107 mL/min/1.73 sq.m. Ages 40-49 = 99 mL/min/1.73 sq.m. Ages 50-59 = 93 mL/min/1.73 sq.m. Ages 60-69 = 85 mL/min/1.73 sq.m. Ages 70+ = 75 mL/min/1.73 sq.m. Chronic Kidney Disease: Less than 60 mL/min/1.73 square meters End Stage Renal Disease: Less than 15 mL/min/1.73 square meters Performed By: #### M DW, GFR, BMP, ANEU, CBC, ADIFF #### [address] [address] GFR Non- >60 Normal [facility] ([place] Comment on above: Result Comment: GFR Population mean for , Non- Americans Ages 20-29 = 116 mL/min/1.73 sq.m. Ages 30-39 = 107 mL/min/1.73 sq.m. Ages 40-49 = 99 mL/min/1.73 sq.m. Ages 50-59 = 93 mL/min/1.73 sq.m. Ages 60-69 = 85 mL/min/1.73 sq.m. Ages 70+ = 75 mL/min/1.73 sq.m. Chronic Kidney Disease: Less than 60 mL/min/1.73 square meters End Stage Renal Disease: Less than 15 mL/min/1.73 square meters Performed By: #### M DW, GFR, BMP, ANEU, CBC, ADIFF #### [address] [address] .NEUABSon 05-04-2023 Neutrophil, Absolute 14.3 10 3/mcL High 2.3-8.1 [facility] ([place] Comment on above: Performed By: #### M DW, GFR, BMP, ANEU, CBC, ADIFF #### [address] [address] BMPon 05-04-2023 BUN/Creatinine Ratio 18.8 ratio Normal 10.0-22.0 [facility] [place] Comment on above: Performed By: #### M DW, GFR, BMP, ANEU, CBC, ADIFF #### [address] [address] Calcium [Mass/Vol] 8.8 mg/dL Normal 8.7-10.4 [facility] ([place] Comment on above: Performed By: #### M DW, GFR, BMP, ANEU, CBC, ADIFF #### [address] [address] Chloride [Moles/Vol] 110 mmol/L Normal 98-110 [facility] [place] Comment on above: Performed By: #### M DW, GFR, BMP, ANEU, CBC, ADIFF #### [address] [address] CO2 [Moles/Vol] 26 mmol/L Normal 22-32 [facility] [place] ([place]) Comment on above: Performed By: #### M DW, GFR, BMP, ANEU, CBC, ADIFF #### [address] [address] Creatinine [Mass/Vol] 0.64 mg/dL Normal 0.50-1.20 [facility] ([place]) Comment on above: Performed By: #### M DW, GFR, BMP, ANEU, CBC, ADIFF #### [address] [address] Electrolyte Balance 6.0 mEq/L Normal 4.0-15.0 [facility] ([place]) Comment on above: Performed By: #### M DW, GFR, BMP, ANEU, CBC, ADIFF #### [address] [address] Glucose [Mass/Vol] 152 mg/dL High 70-110 [facility] ([place]) Comment on above: Performed By: #### M DW, GFR, BMP, ANEU, CBC, ADIFF #### [address] [address] Potassium [Moles/Vol] 4.5 mmol/L Normal 3.5-5.0 [facility] ([place] Comment on above: Performed By: #### M DW, GFR, BMP, ANEU, CBC, ADIFF #### [address] [address] Sodium [Moles/Vol] 142 mmol/L Normal 136-145 [facility] ([place] Comment on above: Performed By: #### M DW, GFR, BMP, ANEU, CBC, ADIFF #### [address] [address] Urea nitrogen [Mass/Vol] 12.0 mg/dL Normal 8.0-22.0 [facility] [place] ([place] Comment on above: Performed By: #### M DW, GFR, BMP, ANEU, CBC, ADIFF #### [address] [address] CBCon 05-04-2023 Erythrocyte distribution width (RBC) [Ratio] 13.8 % Normal 11.5-15.5 [facility] [place] ([place] Comment on above: Performed By: #### M DW, GFR, BMP, ANEU, CBC, ADIFF #### [place] [address] Hematocrit (Bld) [Volume fraction] 44.9 % Normal 34.0-46.0 [facility] [place] ([place] Comment on above: Performed By: #### M DW, GFR, BMP, ANEU, CBC, ADIFF #### [address] [address] Hgb 15.0 G/dL Normal 12.0-16.0 [facility] [place] ([place] Comment on above: Performed By: #### M DW, GFR, BMP, ANEU, CBC, ADIFF #### [address] [address] MCH (RBC) [Entitic mass] 30.3 pg Normal 27.0-33.0 [facility] [place] ([place] Comment on above: Performed By: #### M DW, GFR, BMP, ANEU, CBC, ADIFF #### [address] [address] MCHC 33.3 G/dL Normal 32.0-36.0 [facility] [place] ([place] Comment on above: Performed By: #### M DW, GFR, BMP, ANEU, CBC, ADIFF #### [address] [address] MCV (RBC) [Entitic vol] 91.1 fL Normal 80.0-99.0 [facility] [place] ([place] Comment on above: Performed By: #### M DW, GFR, BMP, ANEU, CBC, ADIFF #### [address] [address] Platelet 336 10 3/mcL Normal 150-450 [facility] [place] ([place] Comment on above: Performed By: #### M DW, GFR, BMP, ANEU, CBC, ADIFF #### [address] [address] Platelet mean volume (Bld) [Entitic vol] 7.5 fL Normal 6.6-10.5 [facility] [place] ([place] Comment on above: Performed By: #### M DW, GFR, BMP, ANEU, CBC, ADIFF #### [address] [address] RBC 4.93 10 6/mcL Normal 4.10-5.30 [facility] [place] ([place] Comment on above: Performed By: #### M DW, GFR, BMP, ANEU, CBC, ADIFF #### [address] [address] WBC 16.0 10 3/mcL High 4.5-10.8 [facility] [place] ([place] Comment on above: Performed By: #### M DW, GFR, BMP, ANEU, CBC, ADIFF #### [address] [address] RESCVIDon 05-04-2023 Adenovirus Not detected Normal Not Detected [facility] [place] ([place] Comment on above: Performed By: #### R ESCVID #### [place] [address] Bordetella Parapertussis Not detected Normal Not Detected [facility] [place] ([place] Comment on above: Performed By: #### R ESCVID #### [address] [address] Bordetella Pertussis Not detected Normal Not Detected [facility] [place] ([place] Comment on above: Performed By: #### R ESCVID #### [facility] [address] [place] [address] Chlamydophila pneumoniae Not detected Normal Not Detected [facility] [place] ([place]) Comment on above: Performed By: #### R ESCVID #### [facility] [address] [place] [address] Coronavirus 229E (Not COVID-19) Not detected Normal Not Detected [facility] [place] ([place] Comment on above: Performed By: #### R ESCVID #### [facility] [address] [place], [place] [id number] Coronavirus HKU1 (Not COVID-19) Not detected Normal Not Detected [facility] [place] ([place] Comment on above: Performed By: #### R ESCVID #### [place] [id number] Coronavirus NL63 (Not COVID-19) Not detected Normal Not Detected [facility] [place] ([place] Comment on above: Performed By: #### R ESCVID #### [place] [address] Coronavirus OC43 (Not COVID-19) Not detected Normal Not Detected [facility] [place] ([place] Comment on above: Performed By: #### R ESCVID #### [address] [address] Human Metapneumovirus Not detected Normal Not Detected [facility] [place] ([place] Comment on above: Performed By: #### R ESCVID #### [facility] [address] [place] [address] Influenza A Not detected Normal Not Detected [facility] [place] ([place] Comment on above: Performed By: #### R ESCVID #### [facility] [address] [place] [address] Influenza B Not detected Normal Not Detected [facility] [place] Comment on above: Performed By: #### R ESCVID #### [facility] [address] [place] [address] Mycoplasma pneumoniae Not detected Normal Not Detected [facility] [place] Comment on above: Performed By: #### R ESCVID #### [address] [place], [place] [address] Parainfluenza 1 Not detected Normal Not Detected [facility] ([place]) Comment on above: Performed By: #### R ESCVID #### [facility] [address] [place] [address] Parainfluenza 2 Not detected Normal Not Detected [facility] ([place] Comment on above: Performed By: #### R ESCVID #### [facility] [address] [place] [address] Parainfluenza 3 Not detected Normal Not Detected [facility] ([place] Comment on above: Performed By: #### R ESCVID #### [facility] [address] [place] [address] Parainfluenza 4 Not detected Normal Not Detected [facility] ([place] Comment on above: Performed By: #### R ESCVID #### [address] [address] Respiratory Syncytial Virus Not detected Normal Not Detected [facility] [place] Comment on above: Performed By: #### R ESCVID #### [facility] [address] [place] [address] Rhinovirus/Enteroviru s Detected Abnormal Not Detected [facility] [place] Comment on above: Performed By: #### R ESCVID #### [address] [address] SARS-CoV-2 (COVID-19) RNA INNA+probe Ql (Unsp spec) Not detected Normal Not Detected [facility] [place] ([place] Comment on above: Result Comment: This test is being used under the FDA EUA procedure. This assay has been validated in the [facility] for use with nasopharyngeal specimens in [facility]. If a non-validated specimen or test collection method was used, please interpret the results with caution, especially if the test result is negative. A positive test result for COVID-19 indicates that RNA from SARS-CoV-2 was detected, and the patient is infected with the virus and presumed to be contagious. Laboratory test results should always be considered in the context of clinical observations and epidemiological data in making a final diagnosis and patient management decisions. Patient management should follow current CDC guidelines. A negative test result for this test means that SARS-CoV-2 RNA was not present in the specimen above the limit of detection. However, a negative result does not rule out COVID-19 and should not be used as the sole basis for treatment or patient management decisions. A negative result does not exclude the possibility of COVID-19. When diagnostic testing is negative, the possibility of a false negative result should be considered in the context of a patient's recent exposures and the presence of clinical signs and symptoms consistent with COVID-19. The possibility of a false negative result should especially be considered if the patient?s recent exposures or clinical presentation indicate that COVID-19 is likely, and diagnostic tests for other causes of illness (e.g., other respiratory illness) are negative. If COVID-19 is still suspected based on exposure history together with other clinical findings, re-testing should be considered by healthcare providers in consultation with public health authorities. Performed By: #### R ESCVID #### [place] [address] UAon 05-04-2023 Color (U) Yellow Normal [facility] ([place] Comment on above: Performed By: #### M DW, GFR, BMP, ANEU, CBC, ADIFF #### [address] [address] Glucose (U) [Mass/Vol] Negative Normal Negative [facility] [place] ([place] Comment on above: Performed By: #### M DW, GFR, BMP, ANEU, CBC, ADIFF #### [address] [address] Ketones Ql (U) Negative Normal Neg-Trace [facility] [place] ([place] Comment on above: Performed By: #### M DW, GFR, BMP, ANEU, CBC, ADIFF #### [address] [address] UA Appear Clear Normal Clear [facility] [place] ([place] Comment on above: Performed By: #### M DW, GFR, BMP, ANEU, CBC, ADIFF #### [address] [address] UA Blood Negative Normal Neg-Trace [facility] [place] ([place] Comment on above: Performed By: #### M DW, GFR, BMP, ANEU, CBC, ADIFF #### [address] [address] UA Leuk Est Trace Normal Negative [facility] [place] ([place] Comment on above: Performed By: #### M DW, GFR, BMP, ANEU, CBC, ADIFF #### [address] [address] UA Nitrite Negative Normal Negative [facility] [place] ([place] Comment on above: Performed By: #### M DW, GFR, BMP, ANEU, CBC, ADIFF #### [address] [address] UA pH 6.5 Normal 5.0 - 8.0 [facility] [place] ([place] Comment on above: Performed By: #### M DW, GFR, BMP, ANEU, CBC, ADIFF #### [address] [address] UA Protein Negative Normal Negative [facility] [place] ([place] Comment on above: Performed By: #### M DW, GFR, BMP, ANEU, CBC, ADIFF #### [address] [address] UA Spec Grav <=1.005 Abnormal 1.006-1.029 [facility] [place] ([place] Comment on above: Performed By: #### M DW, GFR, BMP, ANEU, CBC, ADIFF #### [address] [address] UA Specimen Type Clean Catch Normal [facility] [place] ([place] Comment on above: Performed By: #### M DW, GFR, BMP, ANEU, CBC, ADIFF #### [address] [address] UA Urobilinogen 0.2 E.U./dL Normal 0.2-1.0 [facility] [place] ([place] Comment on above: Performed By: #### M DW, GFR, BMP, ANEU, CBC, ADIFF #### [address] [address] Urobilinogen (U) [Mass/Vol] Negative Normal Neg-Trace [facility] [place] ([place] Comment on above: Performed By: #### M DW, GFR, BMP, ANEU, CBC, ADIFF #### [address] [address] .Auto Diffon 05-03-2023 Basophil, Absolute 0.1 10 3/mcL Normal 0.0-0.2 [facility] [place] Comment [place]: Performed By: #### M DW, GFR, BMP, ANEU, CBC, ADIFF #### [address] [address] Basophils/100 WBC (Bld) 0.3 % Normal 0.0-2.5 [facility] [place] ([place] Comment on above: Performed By: #### M DW, GFR, BMP, ANEU, CBC, ADIFF #### [address] [address] Eosinophil, Absolute 0.1 10 3/mcL Normal 0.0-0.4 [facility] ([place]) Comment on above: Performed By: #### M DW, GFR, BMP, ANEU, CBC, ADIFF #### [address] [address] Eosinophils/100 WBC (Bld) 0.5 % Normal 0.0-7.0 [facility] [place] ([place] Comment on above: Performed By: #### M DW, GFR, BMP, ANEU, CBC, ADIFF #### [address] [address] Lymphocyte, Absolute 1.6 10 3/mcL Normal 0.8-3.9 [facility] ([place] Comment on above: Performed By: #### M DW, GFR, BMP, ANEU, CBC, ADIFF #### [address] [address] Lymphocytes/100 WBC (Bld) 8.3 % Low 10.0-50.0 [facility] [place] ([place] Comment on above: Performed By: #### M DW, GFR, BMP, ANEU, CBC, ADIFF #### [address] [address] Monocyte, Absolute 1.1 10 3/mcL High 0.2-1.0 [facility] [place] Comment [place] above: Performed By: #### M DW, GFR, BMP, ANEU, CBC, ADIFF #### [address] [address] Monocytes/100 WBC (Bld) 5.8 % Normal 1.7-13.0 [facility] [place] ([place] Comment on above: Performed By: #### M DW, GFR, BMP, ANEU, CBC, ADIFF #### [address] [address] Neutrophils/100 WBC (Bld) 85.1 % High 37.0-80.0 [facility] [place] ([place] Comment on above: Performed By: #### M DW, GFR, BMP, ANEU, CBC, ADIFF #### [address] [address] .GFRon 05-03-2023 GFR 96 ml/min/1.73sqm Normal [facility] [place] ([place] Comment on above: Result Comment: GFR Population mean for , Non- Americans Ages 20-29 = 116 mL/min/1.73 sq.m. Ages 30-39 = 107 mL/min/1.73 sq.m. Ages 40-49 = 99 mL/min/1.73 sq.m. Ages 50-59 = 93 mL/min/1.73 sq.m. Ages 60-69 = 85 mL/min/1.73 sq.m. Ages 70+ = 75 mL/min/1.73 sq.m. Chronic Kidney Disease: Less than 60 mL/min/1.73 square meters End Stage Renal Disease: Less than 15 mL/min/1.73 square meters Performed By: #### M DW, GFR, BMP, ANEU, CBC, ADIFF #### [address] [address] GFR Non- 80 ml/min/1.73sqm Normal [facility] [place] ([place] Comment on above: Result Comment: GFR Population mean for , Non- Americans Ages 20-29 = 116 mL/min/1.73 sq.m. Ages 30-39 = 107 mL/min/1.73 sq.m. Ages 40-49 = 99 mL/min/1.73 sq.m. Ages 50-59 = 93 mL/min/1.73 sq.m. Ages 60-69 = 85 mL/min/1.73 sq.m. Ages 70+ = 75 mL/min/1.73 sq.m. Chronic Kidney Disease: Less than 60 mL/min/1.73 square meters End Stage Renal Disease: Less than 15 mL/min/1.73 square meters Performed By: #### M DW, GFR, BMP, ANEU, CBC, ADIFF #### [address] [address] .MDWon 05-03-2023 Monocyte Distribution Width 21.12 High 0.00-20.00 [facility] [place] ([place] Comment on above: Result Comment: For adults in ED, MDW>20.0 may be associated with a higher risk of sepsis during the first 12hrs of hospital admission Performed By: #### M DW, GFR, BMP, ANEU, CBC, ADIFF #### [address] [address] .NEUABSon 05-03-2023 Neutrophil, Absolute 16.5 10 3/mcL High 2.9-6.2 [facility] ([place]) Comment on above: Performed By: #### M DW, GFR, BMP, ANEU, CBC, ADIFF #### [address] [address] BMPon 05-03-2023 BUN/Creatinine Ratio 11 ratio Normal 7-27 [facility] [place] Comment [place] above: Performed By: #### M DW, GFR, BMP, ANEU, CBC, ADIFF #### [address] [address] Calcium [Mass/Vol] 9.0 mg/dL Normal 8.4-10.2 [facility] ([place] Comment on above: Performed By: #### M DW, GFR, BMP, ANEU, CBC, ADIFF #### [address] [address] Chloride [Moles/Vol] 101 mmol/L Normal 98-107 [facility] [place] Comment [place] above: Performed By: #### M DW, GFR, BMP, ANEU, CBC, ADIFF #### [address] [address] CO2 [Moles/Vol] 27 mmol/L Normal 22-29 [facility] [place] ([place] Comment on above: Performed By: #### M DW, GFR, BMP, ANEU, CBC, ADIFF #### [address] [address] Creatinine [Mass/Vol] 0.76 mg/dL Normal 0.55-1.02 [facility] ([place] Comment on above: Performed By: #### M DW, GFR, BMP, ANEU, CBC, ADIFF #### [address] [address] Electrolyte Balance 10.0 mEq/L Normal 4.0-15.0 [facility] ([place]) Comment on above: Performed By: #### M DW, GFR, BMP, ANEU, CBC, ADIFF #### [address] [address] Glucose [Mass/Vol] 123 mg/dL High 70-105 [facility] ([place] Comment on above: Performed By: #### M DW, GFR, BMP, ANEU, CBC, ADIFF #### [address] [address] Potassium [Moles/Vol] 4.2 mmol/L Normal 3.5-5.1 [facility] ([place] Comment on above: Performed By: #### M DW, GFR, BMP, ANEU, CBC, ADIFF #### [address] [address] Sodium [Moles/Vol] 138 mmol/L Normal 136-145 [facility] ([place] Comment on above: Performed By: #### M DW, GFR, BMP, ANEU, CBC, ADIFF #### [address] [address] Urea nitrogen [Mass/Vol] 8 mg/dL Normal 7-18 [facility] [place] ([place] Comment on above: Performed By: #### M DW, GFR, BMP, ANEU, CBC, ADIFF #### [address] [address] CBCon 05-03-2023 Erythrocyte distribution width (RBC) [Ratio] 13.8 % Normal 11.5-14.5 [facility] [place] ([place] Comment on above: Performed By: #### M DW, GFR, BMP, ANEU, CBC, ADIFF #### [address] [address] Hematocrit (Bld) [Volume fraction] 43.2 % Normal 37.0-47.0 [facility] [place] ([place] Comment on above: Performed By: #### M DW, GFR, BMP, ANEU, CBC, ADIFF #### [address] [address] Hgb 14.7 G/dL Normal 12.0-16.0 [facility] [place] ([place] Comment on above: Performed By: #### M DW, GFR, BMP, ANEU, CBC, ADIFF #### [address] [address] MCH (RBC) [Entitic mass] 30.2 pg Normal 27.0-31.2 [facility] [place] ([place] Comment on above: Performed By: #### M DW, GFR, BMP, ANEU, CBC, ADIFF #### [address] [address] MCHC 34.0 G/dL Normal 33.0-37.0 [facility] [place] ([place] Comment on above: Performed By: #### M DW, GFR, BMP, ANEU, CBC, ADIFF #### [address] [address] MCV (RBC) [Entitic vol] 88.9 fL Normal 80.0-94.0 [facility] [place] ([place] Comment on above: Performed By: #### M DW, GFR, BMP, ANEU, CBC, ADIFF #### [address] [address] Platelet 322 10 3/mcL Normal 130-400 [facility] [place] ([place] Comment on above: Performed By: #### M DW, GFR, BMP, ANEU, CBC, ADIFF #### [place] [address] [place], [place] [address] Platelet mean volume (Bld) [Entitic vol] 6.7 fL Low 7.4-10.4 [facility] [place] ([place] Comment on above: Performed By: #### M DW, GFR, BMP, ANEU, CBC, ADIFF #### [place] [address] [place], [place] [address] RBC 4.86 10 6/mcL Normal 4.20-5.40 [facility] [place] ([place] Comment on above: Performed By: #### M DW, GFR, BMP, ANEU, CBC, ADIFF #### [place] [address] [place], [place] [address] WBC 19.4 10 3/mcL High 4.6-10.8 [facility] [place] ([place] Comment on above: Performed By: #### M DW, GFR, BMP, ANEU, CBC, ADIFF #### [address] [address] LABORATORYOrdered By: SYSTEM SYSTEM on 05-03-2023 Natriuretic peptide.B prohormone N-Terminal [Mass/Vol] 249 pg/mL Invalid Interpretation Code 0 - 125 pg/mL AO ADM SS Comment on above: Interpretive Data: N T-proBNP results of less than 300 pg/mL effectively rules out acute congestive heart failure with 99% negative predictive value. Troponin I.cardiac DL <= 0.01 ng/mL [Mass/Vol] ng/L Invalid Interpretation Code 0.0 - 51.4 ng/L AO ADM SS Basophil, Absolute 0.1 103/mcL Invalid Interpretation Code 0.0 - 0.2 10^3/mcL AO Workflow SS Basophils/100 WBC (Bld) 0.3 % Invalid Interpretation Code 0.0 - 2.5 % AO Workflow SS Calcium [Mass/Vol] 9.0 mg/dL Invalid Interpretation Code 8.4 - 10.2 mg/dL AO ADM SS Chloride [Moles/Vol] 101 mmol/L Invalid Interpretation Code 98 - 107 mmol/L AO ADM SS CO2 [Moles/Vol] 27 mmol/L Invalid Interpretation Code 22 - 29 mmol/L AO ADM SS Creatinine [Mass/Vol] 0.76 mg/dL Invalid Interpretation Code 0.55 - 1.02 mg/dL AO ADM SS Electrolyte Balance 10.0 mEq/L Invalid Interpretation Code 4.0 - 15.0 mEq/L AO ADM SS Eosinophil, Absolute 0.1 103/mcL Invalid Interpretation Code 0.0 - 0.4 10^3/mcL AO Workflow SS Eosinophils/100 WBC (Bld) 0.5 % Invalid Interpretation Code 0.0 - 7.0 % AO Workflow SS Erythrocyte distribution width (RBC) [Ratio] 13.8 % Invalid Interpretation Code 11.5 - 14.5 % AO Workflow SS GFR/1.73 sq M.predicted among blacks MDRD (S/P/Bld) [Vol rate/Area] 96 ml/min/1.73sqm Invalid Interpretation Code AO Chemistry S Comment on above: Interpretive Data: GFR Population mean for , Non- Americans Ages 20-29 = 116 mL/min/1.73 sq.m. Ages 30-39 = 107 mL/min/1.73 sq.m. Ages 40-49 = 99 mL/min/1.73 sq.m. Ages 50-59 = 93 mL/min/1.73 sq.m. Ages 60-69 = 85 mL/min/1.73 sq.m. Ages 70+ = 75 mL/min/1.73 sq.m. Chronic Kidney Disease: Less than 60 mL/min/1.73 square meters End Stage Renal Disease: Less than 15 mL/min/1.73 square meters GFR/1.73 sq M.predicted among non-blacks MDRD (S/P/Bld) [Vol rate/Area] 80 ml/min/1.73sqm Invalid Interpretation Code AO Chemistry S Comment on above: Interpretive Data: GFR Population mean for , Non- Americans Ages 20-29 = 116 mL/min/1.73 sq.m. Ages 30-39 = 107 mL/min/1.73 sq.m. Ages 40-49 = 99 mL/min/1.73 sq.m. Ages 50-59 = 93 mL/min/1.73 sq.m. Ages 60-69 = 85 mL/min/1.73 sq.m. Ages 70+ = 75 mL/min/1.73 sq.m. Chronic Kidney Disease: Less than 60 mL/min/1.73 square meters End Stage Renal Disease: Less than 15 mL/min/1.73 square meters Glucose [Mass/Vol] 123 mg/dL Invalid Interpretation Code 70 - 105 mg/dL AO ADM SS Hematocrit (Bld) [Volume fraction] 43.2 % Invalid Interpretation Code 37.0 - 47.0 % AO Workflow SS Hemoglobin (Bld) [Mass/Vol] 14.7 G/dL Invalid Interpretation Code 12.0 - 16.0 G/dL AO Workflow SS Lymphocyte, Absolute 1.6 103/mcL Invalid Interpretation Code 0.8 - 3.9 10^3/mcL AO Workflow SS Lymphocytes/100 WBC (Bld) 8.3 % Invalid Interpretation Code 10.0 - 50.0 % AO Workflow SS MCH (RBC) [Entitic mass] 30.2 pg Invalid Interpretation Code 27.0 - 31.2 pg AO Workflow SS MCHC 34.0 G/dL Invalid Interpretation Code 33.0 - 37.0 G/dL AO Workflow SS MCV (RBC) [Entitic vol] 88.9 fL Invalid Interpretation Code 80.0 - 94.0 fL AO Workflow SS Monocyte distribution width Auto (Bld) [Entitic vol] 21.12 1 Invalid Interpretation Code 0.00 - 20.00 AO Workflow SS Comment on above: Result Comment: For adults in ED, MDW>20.0 may be associated with a higher risk of sepsis during the first 12hrs of hospital admission Monocyte, Absolute 1.1 103/mcL Invalid Interpretation Code 0.2 - 1.0 10^3/mcL AO Workflow SS Monocytes/100 WBC (Bld) 5.8 % Invalid Interpretation Code 1.7 - 13.0 % AO Workflow SS Neutrophil, Absolute 16.5 103/mcL Invalid Interpretation Code 2.9 - 6.2 10^3/mcL AO Workflow SS Neutrophils/100 WBC (Bld) 85.1 % Invalid Interpretation Code 37.0 - 80.0 % AO Workflow SS Platelet mean volume (Bld) [Entitic vol] 6.7 fL Invalid Interpretation Code 7.4 - 10.4 fL AO Workflow SS Platelets (Bld) [#/Vol] 322 103/mcL Invalid Interpretation Code 130 - 400 10^3/mcL AO Workflow SS Potassium [Moles/Vol] 4.2 mmol/L Invalid Interpretation Code 3.5 - 5.1 mmol/L AO ADM SS RBC (Bld) [#/Vol] 4.86 106/mcL Invalid Interpretation Code 4.20 - 5.40 10^6/mcL AO Workflow SS Sodium [Moles/Vol] 138 mmol/L Invalid Interpretation Code 136 - 145 mmol/L AO ADM SS Urea nitrogen [Mass/Vol] 8 mg/dL Invalid Interpretation Code 7 - 18 mg/dL AO ADM SS Urea nitrogen/Creatinine [Mass ratio] 11 ratio Invalid Interpretation Code 7 - 27 ratio AO ADM SS WBC (Bld) [#/Vol] 19.4 103/mcL Invalid Interpretation Code 4.6 - 10.8 10^3/mcL AO Workflow SS No Panel Informationon 05-03 Microscopic examination of blood, culture Culture has been received in lab and is no growth to date. Routine cultures are held for 5 days. [facility] PBNPon 05-03-2023 Natriuretic peptide B (Bld) [Mass/Vol] 249 pg/mL High 0-125 [facility] ([place] Comment on above: Result Comment: NT-p roBNP results of less than 300 pg/mL effectively rules out acute congestive heart failure with 99% negative predictive value. Performed By: #### M DW, GFR, BMP, ANEU, CBC, ADIFF #### [address] [address] TROPHSon 05-03-2023 Troponin I High Sensitivity <4.0 Normal 0.0-51.4 [facility] ([place] Comment on above: Performed By: #### M DW, GFR, BMP, ANEU, CBC, ADIFF #### [place] [address] [place], [place] [address] XR CHEST 1 VIEWon 05-03-2023 XR CHEST 1 VIEW ORIGINAL EXAMINATION: ONE XRAY VIEW OF THE CHEST05/03/2023 9:44 am COMPARISON: 12/06/2018 HISTORY: ORDERING SYSTEM PROVIDED HISTORY: Reason for Exam: SOB/cough/fever FINDINGS: The cardiomediastinal contours are normal. Accentuated vascular markings noted. Patchy airspace disease seen in the right mid lung. No pleural fluid or pneumothorax. No aggressive osseous lesions identified. IMPRESSION: Patchy airspace disease in the mid right lung may relate to pneumonia in the proper clinical setting. Follow to resolution Accentuated vascular markings may relate to congestion Interpreted by: Lamberto Flores MD Preliminary Report By: Lamberto Flores MD Electronically signed By Lamberto Flores MD Dictated Date: 05/03/2023 9:54:25 AM Prelim Date: 05/03/2023 9:55:04 AM Sign Date: 05/03/2023 9:55:04 AM Ordering Provider: [facility] ([place]) XR ABDOMEN 1V SUPINEon 03-20 [facility] UA DIP, URINE (POC)on 2022 BILIRUBIN UA (POCT) Negative Negative [facility] CLARITY UA (POCT) [facility] COLOR [facility]A (POCT) Dark [facility] GLUCOSE UA (POCT) Negative Negative mg/dL [facility] HEMOGLOBIN/BLOOD UA (POCT) Negative Negative [facility] KETONE UA (POCT) Negative Negative mg/dL [facility] LEUKOCYTES UA (POCT) Negative Negative [facility] NITRITE UA (POCT) Negative Negative [facility] PH UA (POCT) 6.0 4.5 - 8.0 [facility] Protein Ql (U) 30 mg/dL Abnormal Negative mg/dL [facility] SPECIFIC GRAVITY UA (POCT) >=1.030 1.005 - 1.030 [facility] UROBILINOGEN UA (POCT) 0.2 E.U./dL Normal E.U./dL [facility] VITAMIN D 25 HYDROXYon 02-10 25-hydroxyvitamin D3 [Mass/Vol] 41.4 ng/mL 31.0 - 80.0 ng/mL [facility] HbA1c (Bld)on 02-09-2023 Average glucose Estimated from glycated hemoglobin (Bld) [Mass/Vol] 117 mg/dL [facility] HbA1c (Bld) [Mass fraction] 5.7 % High 4.3 - 5.6 % [facility] URINE CULTUREon 02-09-2023 Bacteria identified Cx Nom (U) No growth (<1,000 CFU/ml) [facility] CBC panel Auto (Bld)on 02-08 Erythrocyte distribution width (RBC) [Ratio] 14.4 % 11.5 - 15.0 % [facility] Hematocrit (Bld) [Volume fraction] 47.5 % High 36.0 - 46.0 % [facility] Hemoglobin (Bld) [Mass/Vol] 14.8 g/dL 11.5 - 15.5 g/dL [facility] MCH (RBC) [Entitic mass] 29.5 pg 26.0 - 34.0 pg [facility] MCHC (RBC) [Mass/Vol] 31.2 g/dL 30.5 - 36.0 g/dL [facility] MCV (RBC) [Entitic vol] 94.8 fL 80.0 - 100.0 fL [facility] Nucleated RBC (Bld) [#/Vol] <0.01 k/uL [facility] Platelet mean volume (Bld) [Entitic vol] 10.7 fL 9.0 - 12.7 fL [facility] Platelets (Bld) [#/Vol] 317 10*3/uL 150 - 400 k/uL [facility] RBC (Bld) [#/Vol] 5.01 10*6/uL 3.90 - 5.2 0 m/uL [facility] WBC (Bld) [#/Vol] 12.69 10*3/uL High 3.70 - 11 .00 k/uL [facility] Comprehensive metabolic 2000 panelon 02-08-2023 Albumin [Mass/Vol] 4.1 g/dL 3.9 - 4.9 g/dL [facility] ALP [Catalytic activity/Vol] 167 U/L High 34 - 123 U/L [facility] ALT [Catalytic activity/Vol] 19 U/L 7 - 38 U/L [facility] Anion gap [Moles/Vol] 11 mmol/L 9 - 18 mmol/L [facility] AST [Catalytic activity/Vol] 15 U/L 13 - 35 U/L [facility] Bilirubin [Mass/Vol] 0.3 mg/dL 0.2 - 1 .3 mg/dL [facility] Calcium [Mass/Vol] 9.5 mg/dL 8.5 - 10. 2 mg/dL [facility] Chloride [Moles/Vol] 105 mmol/L 97 - 10 5 mmol/L [facility] CO2 [Moles/Vol] 23 mmol/L 22 - 30 mmol/L [facility] Creatinine [Mass/Vol] 0.73 mg/dL 0.58 - 0.96 mg/dL [facility] Estimated Glomerular Filtration Rate 99 mL/min/1.73m >=60 mL/min/1.73m [facility] Glucose [Mass/Vol] 104 mg/dL High 74 - 99 mg/dL [facility] Potassium [Moles/Vol] 4.7 mmol/L 3.7 - 5.1 mmol/L [facility] Protein [Mass/Vol] 6.9 g/dL 6.3 - 8.0 g/dL [facility] Sodium [Moles/Vol] 139 mmol/L 136 - 144 mmol/L [facility] Urea nitrogen [Mass/Vol] 12 mg/dL 7 - 21 mg/dL [facility] LIPID PANEL, NONFASTINGon Cholesterol [Mass/Vol] 214 mg/dL High <200 mg/dL [facility] HDL Cholesterol, Nonfasting 60 mg/dL >39 mg/dL [facility] LDL Cholesterol, Nonfasting 129 mg/dL High <100 mg/dL [facility] LDL/HDL Ratio, Nonfasting 2.15 mg/dL <2.54 mg/dL [facility] Non HDL Cholesterol, Nonfasting 154 mg/dL High <130 mg/dL [facility] Total Chol/HDL Ratio, Nonfasting 3.57 mg/dL <5.10 mg/dL [facility] Triglycerides, Nonfasting 127 mg/dL <150 mg/dL [facility] VLDL Cholesterol, Nonfasting 25 mg/dL <30 mg/dL [facility] MAGNESIUM [facility] 02-08-2023 Magnesium [Mass/Vol] 2.2 mg/dL 1.7 - 2 .3 mg/dL [facility] TSH [facility] 02-08-2023 TSH Qn 2.210 m[IU]/L 0.270 - 4.200 mIU/L [facility] UA DIP, URINE (POC)on 2022 BILIRUBIN UA (POCT) Negative Negative [facility] CLARITY UA (POCT) Clear [facility] COLOR UA (POCT) Yellow [facility] GLUCOSE UA (POCT) Negative Negative mg/dL [facility] HEMOGLOBIN/BLOOD UA (POCT) Negative Negative [facility] KETONE UA (POCT) Negative Negative mg/dL [facility] LEUKOCYTES UA (POCT) Trace Abnormal Negative [facility] NITRITE UA (POCT) Negative Negative [facility] PH UA (POCT) 7.5 4.5 - 8.0 [facility] Protein Ql (U) Negative Negative mg/dL [facility] SPECIFIC GRAVITY UA (POCT) 1.015 1.005 - 1.030 [facility] UROBILINOGEN UA (POCT) 0.2 E.U./dL Normal E.U./dL [facility] XR ABDOMEN 1V SUPINEon 12-23 [facility] ANES POSTPROC EVALon 023 ANES POSTPROC EVAL HNO ID: [id number] Author: Marcos Coon MD Service: Anesthesiology Author Type: Anesthesiologist Type: Anesthesia Postprocedure Evaluation Filed: 12/18/2022 2:09 PM Note Text: POST ANESTHESIA EVALUATION NOTE : 1970 Procedure Summary Date: 12/18/22 Room / Location: [facility] Anesthesia Start: 1243 Anesthesia Stop: 1327 Procedures: EGD DIAGNOSTIC COLONOSCOPY DIAGNOSTIC Diagnosis: Abdominal pain, unspecified abdominal location (Generalized abdominal pain) (Constipation) Scheduled Providers: Hilda Edwards MD; Jeyson Cosby APRN.DYEHOUSE WORKER; Marcos Coon MD Responsible Provider: Marcos Coon MD Anesthesia Type: MAC ASA Status: 3 Anesthesia Type: MAC Last Vitals Vitals Value Taken Time BP 115/57 12/18/22 1345 Temp 36.4 ?C (97.5 ?F) 12/18/22 1345 Pulse 85 12/18/22 1357 Resp 29 12/18/22 1357 SpO2 97 % 12/18/22 1357 Vitals shown include unvalidated device data. Post Anesthesia Patient Status Patient Evaluation: PACU. PACU/ICU Patient Condition: stable. Anticipated Disposition: phase 2 then home. Neurological Status: aware and responsive. Pulmonary Status: breathing comfortably on room air Airway Control: returned to baseline unsupported. Cardiovascular Status: stable. Pain Management: clinically adequate - multimodal analgesia pain management approach Postoperative Hydration: acceptable. Intraoperative Events: no significant anesthesia events Recommendation: continue current plan of care. Anesthesia Observations No Documentation SIGNATURE: Marcos Coon MD PATIENT NAME: Sky Zamudio DATE: December 18, 2022 TIME: 2:09 PM CSN: [id number] Normal [facility] ANES PRE-OPon 12-18-2022 [facility] PRE-OP HNO ID: [id number] Author: Marcos Coon MD Service: Anesthesiology Author Type: Anesthesiologist Type: Anesthesia Preprocedure Evaluation Filed: 12/18/2022 12:32 PM Note Text: ANESTHESIOLOGY DAY OF SURGERY NOTE : 1970 Procedure Information Date/Time: 12/18/22 1400 Scheduled providers: Hilda Edwards MD; Jeyson Cosby APRN.DYEHOUSE WORKER; Marcos Coon MD Procedures: EGD DIAGNOSTIC COLONOSCOPY DIAGNOSTIC Location: [facility] Estimated body mass index is 46.79 kg/m? as calculated from the following: Height as of 12/14/22: 161 cm (5' 3.39 ). Weight as of 12/14/22: 121.3 kg (267 lb 6.4 oz). Most recent hematocrit and potassium results: Hematocrit 49.3 11/14/2021 Potassium 4.4 11/14/2021 Relevant Problems ANESTHESIA (+) Unspecified sleep apnea CARDIO (+) Chronic migraine without aura, with intractable migraine, so stated, with status migrainosus (+) Intractable chronic migraine without aura and with status migrainosus (+) Intractable chronic migraine without aura and without status migrainosus (+) Migraine headache (+) Migraine without aura and without status migrainosus, not intractable (+) Status migrainosus GI (+) Esophageal reflux NEURO-PSYCH (+) Chronic daily headache (+) Chronic migraine without aura, with intractable migraine, so stated, with status migrainosus (+) Intractable chronic migraine without aura and with status migrainosus (+) Intractable chronic migraine without aura and without status migrainosus (+) Medication overuse headache (+) Migraine headache (+) Migraine without aura and without status migrainosus, not intractable (+) Rebound headache (+) Status migrainosus PULMONARY (+) Mild persistent asthma without complication (+) Unspecified sleep apnea I - PHYSICAL EVALUATION AIRWAY Patient intubated: No. Tracheostomy tube not present Mallampati: II. TM distance: >3 FB. Neck ROM: full ROM without neurological symptoms. Mouth opening: adequate. DENTAL Dental findings: poor dentition. Additional exam findings: no II - ANESTHESIA PLAN ASA Score: 3 Anesthetic Plan: MAC NPO Status: adequate Beta Hector Monitoring Plan Monitoring plan: standard ASA. Post Procedure Analgesic Plan Postoperative analgesic plan: parenteral or oral opioids and multimodal analgesia. Patient / Surrogate agrees to blood products: blood products not planned Significant changes in the patient condition since the History and Physical, not otherwise documented in primary service progress note: no. Vitals Value Taken Time BP 134/77 12/18/22 1228 Pulse 94 12/18/22 1228 Resp 16 12/18/22 1228 Temp 36.4 ?C (97.5 ?F) 12/18/22 1228 SpO2 98 % 12/18/22 1228 Outpatient Medications as of 12/18/2022 Medication Sig - traMADol (ULTRAM) 50 mg tablet Take 1-2 tablets by mouth every 8 hours as needed for up to 7 days. for pain. - lansoprazole (PREVACID) 30 mg capsule Take 1 capsule by mouth twice daily. - zolpidem (AMBIEN) 10 mg Take 1 tablet by mouth at bedtime as needed for up to 30 days. - montelukast (SINGULAIR) 10 mg tablet Take 1 tablet by mouth daily at bedtime. - cyclobenzaprine (FLEXERIL) 10 mg tablet Take 1 tablet by mouth three times daily as needed. - carBAMazepine XR (TEGRETOL XR) 100 mg 12 hr tablet Take 1 tablet by mouth twice daily. Combine with 200 mg twice daily for 300 mg twice daily dose. - carBAMazepine XR (TEGRETOL XR) 200 mg 12 hr tablet Take 1 tablet by mouth twice daily. Add to 100 mg twice daily for 300 mg twice daily total dose. - lansoprazole (PREVACID) 30 mg capsule Take 1 capsule by mouth daily before breakfast. 1/2 hr before meal. - albuterol HFA (VENTOLIN HFA) 90 mcg/actuation inhaler Inhale 2 Puffs as instructed every 4 hours as needed. - loratadine-pseudoephed rine ER (LORATA-D) 10-240 mg Tb24 Take 1 tablet by mouth once daily. - Lactobacillus acidophilus (FLORAJEN ACIDOPHILUS) 20 billion cell cap Take 1 capsule by mouth once daily. - cimetidine (TAGAMET) 400 mg tablet Take 1 tablet by mouth twice daily. (Patient taking differently: Take 400 mg by mouth once daily.) - multivitamin (TAB-A-JESSICA) tablet Take 1 tablet by mouth once daily. - ALPRAZolam (XANAX) 0.5 mg tablet Take 1 tablet by mouth twice daily as needed for up to 7 days. - diclofenac (VOLTAREN) 1 % topical gel apply topically as directed if needed - nitrofurantoin monohydrate and macrocrystal (MACROBID) 100 mg capsule Take 1 capsule by mouth twice daily. - nicotine polacrilex (NICORETTE) 2 mg gum Take 1 Each by mouth every 2 hours as needed. - triamcinolone acetonide (NASACORT AQ) 55 mcg nasal inhaler Use 2 Sprays in the nose once daily as needed. - ondansetron orally disintegrating (ZOFRAN ODT) 4 mg disintegrating tablet Take 1 tablet by mouth every 6 hours as needed for nausea/vomiting. - fremanezumab-vfrm (AJOVY AUTOINJECTOR) 225 mg/1.5 mL auto-injector Inject 1.5 mL subcutaneously once every (more content not included)... Normal [facility] COLONOSCOPY DIAGNOSTICon [facility] Colonoscopyon 12-18-2022 Colonoscopy [facility] Patient Name: Sky Zamudio Procedure Date: 12/18/2022 12:58 PM Date of : 1970 Admit Type: Outpatient Age: 52 Room: [facility] Gender: Female Note Status: Finalized Attending MD: Hilda Edwards MD Procedure: Colonoscopy Indications: Constipation Providers: Hilda Edwards MD Patient Profile: This is a 52 year old female. Refer to note in patient chart for documentation of history and physical. Last Colonoscopy: 3 years ago. Referring Physician: Hilda Edwards MD (Referring MD) Medicines: Monitored Anesthesia Care Complications: No immediate complications. Requesting Provider: Procedure: Pre-Anesthesia Assessment: - Prior to the procedure, a History and Physical was performed, and patient medications and allergies were reviewed. The patient is competent. The risks and benefits of the procedure and the sedation options and risks were discussed with the patient. All questions were answered and informed consent was obtained. Patient identification and proposed procedure were verified by the physician, the nurse and the control clerk head in the procedure room. Mental Status Examination: alert and oriented. Respiratory Examination: clear to auscultation. Prophylactic Antibiotics: The patient does not require prophylactic antibiotics. Prior Anticoagulants: The patient has taken no anticoagulant or antiplatelet agents. ASA Grade Assessment: III - A patient with severe systemic disease. After reviewing the risks and benefits, the patient was deemed in satisfactory condition to undergo the procedure. The anesthesia plan was to use monitored anesthesia care (MAC). Immediately prior to administration of medications, the patient was re-assessed for adequacy to receive sedatives. The heart rate, respiratory rate, oxygen saturations, blood pressure, adequacy of pulmonary ventilation, and response to care were monitored throughout the procedure. The physical status of the patient was re-assessed after the procedure. After I obtained informed consent, the scope was passed under direct vision. Throughout the procedure, the patient's blood pressure, pulse, and oxygen saturations were monitored continuously. The Colonoscope was introduced through the anus and advanced to the cecum, identified by the appendiceal orifice, ileocecal valve and palpation. The ileocecal valve, appendiceal orifice, and rectum were photographed. The colonoscopy was performed without difficulty. The patient tolerated the procedure well. The quality of the bowel preparation was fair. Scope Withdrawal Time: 0 hours 3 minutes 57 seconds Moderate Sedation: MAC anesthesia was administered by the anesthesia team. Total Procedure Duration: 0 hours 16 minutes 38 seconds Findings: The perianal and digital rectal examinations were normal. Pertinent negatives include normal sphincter tone. The colon (entire examined portion) appeared normal. The retroflexed view of the distal rectum and anal verge was normal and showed no anal or rectal abnormalities. Impression: - Preparation of the colon was fair. - The entire examined colon is normal. - The distal rectum and anal verge are normal on retroflexion view. - No specimens collected. Recommendation: - Discharge patient to home. - Resume previous diet. - Continue present medications. - Repeat colonoscopy in 5 years for screening purposes. - Patient has a contact number available for emergencies. The signs and symptoms of potential delayed complications were discussed with the patient. Return to normal activities tomorrow. Written discharge instructions were provided to the patient. Procedure Code(s): --- Professional --- 35367, Colonoscopy, flexible; diagnostic, including collection of specimen(s) by brushing or washing, when performed (separate procedure) CPT copyright 2020 [employer]. All rights reserved. The codes documented in this report are preliminary and upon pin worker review may be revised to meet current compliance requirements. Attending Participation: I personally performed the entire procedure. Scope In: 1:03:01 PM Scope Out: 1:19:39 PM MD Hilda Rodriguez MD 12/18/2022 1:28:38 PM This report has been signed electronically by Hilda Edwards MD Number of Addenda: 0 Note Initiated On: 12/18/2022 12:58 PM Estimated Blood Loss: Estimated blood loss: none. Normal [facility] EGD DIAGNOSTICon 12-18-2022 [facility] HISTORY PHYSICALon HISTORY PHYSICAL HNO ID: [id number] Author: Hilda Edwards MD Service: General Surgery Author Type: Physician Type: HANDP Filed: 12/18/2022 12:28 PM Note Text: HISTORY AND PHYSICAL Sky Saavedra Robb 1970 REFERRING PHYSICIAN: No ref. provider found CHIEF COMPLAINT: Abdominal Pain (New patient abdominal pain ) HPI: The patient is a 52 year old female referred for abdominal pain. Sky notes that she has been having pain initially in her upper abdominal area above the umbilicus. This pain has been going on for least the past 5 days. She notes the pain is worse with eating. She felt that taking meloxicam and Flexeril improved her symptoms. She notes some nausea for which she has been taking Zofran. She has had some vomiting which has been bile and food without blood or coffee grounds. She has a longstanding history of constipation. She takes significant months of fiber. She notes that she has been moving her bowels more irregularly. She states she is lost 20 pounds. I performed colonoscopy in 2018 for abdominal pain and constipation which was unremarkable. I formed upper endoscopy in 2019 which demonstrated gastritis and distal esophagitis. The patient is having life stressors right now. She had quit smoking but restarted smoking through these life stressors. And she is taking meloxicam and other NSAIDs. She has a prescription for Prevacid which she has been taking once a day. She also had a prescription for Carafate but feels that gets her nauseated so she does not take the Carafate. She has had no imaging. She also noted dysuria she was given medication for that which has improved her symptoms. The patient is being seen by me today at the request of Dr. Elliott Mahajan MD for my opinion and advice regarding abdominal pain. PAST MEDICAL HISTORY PAST MEDICAL HISTORY Diagnosis Date Abdominal pain, periumbilic Acute gastritis without mention of hemorrhage Bipolar disorder, unspecified (HCC) Chronic rhinitis Closed fracture of navicular (scaphoid) bone of foot 12/10/2011 Contact dermatitis and other eczema, due to unspecified cause Diaphragmatic hernia without mention of obstruction or gangrene Dysmenorrhea decreased Esophageal reflux Excessive or frequent menstruation Heavy periods resolved Irregular menstrual cycle Irregular periods Migraine headache Obesity, unspecified Other specified gastritis SLEEP APNEA NOS 12/12/2007 12-03-07: effic 87%, no stage III, AHI 5.5, REM 20.9, supine 3, snoring 98%-rec CPAP trial Stress incontinence Unspecified asthma(493.90) Unspecified symptom associated with female genital organs PAST SURGICAL HISTORY PAST SURGICAL HISTORY Procedure Laterality Date ADENOIDECTOMY PRIMARY Adenoidectomy ANESTHESIA HERNIA REPAIR LOWER ABDOMEN NOS 01/31/2005 DELIVERY ONLY x 3 , low cervical CHOLECYSTECTOMY 03/05/2006 Cholecystectomy COLONOSCOPY FLX DX W/COLLJ SPEC WHEN PFRMD 03/13/2005 Colonoscopy COLONOSCOPY FLX DX W/COLLJ SPEC WHEN PFRMD 04/28/2018 Colonoscopy COLSC FLX W/RMVL OF TUMOR POLYP LESION SNARE TQ 04/02/16 ?mild colitis, tubular adenoma in rectal polyp - 5 year follow up EGD TRANSORAL BIOPSY SINGLE/MULTIPLE 04/04/10 mild gastritis ESOPHAGOGASTRODUODENOS COPY TRANSORAL DIAGNOSTIC 03/13/2005 EGD ESOPHAGOGASTRODUODENOS COPY TRANSORAL DIAGNOSTIC 09/14/2019 EGD HYSTERECTOMY HX 05/02/15 with repair of incidental cystotomy HYSTEROSCOPY, DIAGNOSTIC (SEPARATE 06/21/2010 hysteroscopy DANDC, Novasure LIG/TRNSXJ FLP TUBE ABDL/VAG APPR UNI/BI Tubal ligation NEUROPLASTY AND/TRANSPOS MEDIAN NRV CARPAL TUNNE 06/04/2007 Carpal tunnel decomp right PAST SURGICAL HISTORY OF Abd hernia and mesh placement REPAIR INCISIONAL HERNIA 04/02/2005 with mesh - 3cm infraumbilical - 5cm below umbilicus- medium ventralex mesh SLING OPER STRES INCONTINENCE 05/02/15 TONSILLECTOMY PRIMARY/SECONDARY Tonsillectomy CURRENT MEDICATIONS Current Outpatient Medications Medication Sig zolpidem (AMBIEN) 10 mg Take 1 tablet by mouth at bedtime as needed for up to 30 days. montelukast (SINGULAIR) 10 mg tablet Take 1 tablet by mouth daily at bedtime. diclofenac (VOLTAREN) 1 % topical gel apply topically as directed if needed nitrofurantoin monohydrate and macrocrystal (MACROBID) 100 mg capsule Take 1 capsule by mouth twice daily. nicotine polacrilex (NICORETTE) 2 mg gum Take 1 Each by mouth every 2 hours as needed. triamcinolone acetonide (NASACORT AQ) 55 mcg nasal inhaler Use 2 Sprays in the nose once daily as needed. ondansetron orally disintegrating (ZOFRAN ODT) 4 mg disintegrating tablet Take 1 tablet by mouth every 6 hours as needed for nausea/vomiting. cyclobenzaprine (FLEXERIL) 10 mg tablet Take 1 tablet by mouth three times daily as needed. fremanezumab-vfrm (AJOVY AUTOINJECTOR) 225 mg/1.5 mL auto-injector Inject 1.5 mL subcutaneously once every month. meloxicam (MOBIC) 15 mg tablet Take 1 tablet (more content not included)... Normal [facility] SURGICAL PATHOLOGYon 023 CASE REPORT [facility] Comment on above: Order Comment: Speci men Type: TISSUE SPECIMEN Ordering Facility: [facility] Address: [address] [place] [address] Result Comment: [facility] Pathology Report Case: [id number] Authorizing Provider: Hilda Edwards MD Collected: 12/18/2022 12:56 PM Ordering Location: [facility] Received: 12/18/2022 02:03 PM Pathologist: David Early MD Specimens: A) - STOMACH BIOPSY, antral B) - ESOPHAGUS BIOPSY, distal Performed By: #### S #### [facility] CLIA [id number] [facility] [address] [place] FINAL DIAGNOSIS [facility] Comment on above: Order Comment: Speci men Type: TISSUE SPECIMEN Ordering Facility: [facility] Address: [address] [place] [address] Result Comment: Jon abreu, antrum, biopsy: - Gastric antral/oxyntic mucosa with no significant histopathologic findings. - No evidence of Helicobacter pylori organisms on H&E stain. B. Esophagus, distal, biopsy: - Gastric oxyntic mucosa with mild chronic inflammation. - Negative for intestinal metaplasia and dysplasia. - No squamous mucosa identified. Performed By: #### S #### [facility] CLIA [id number] [address] [place] [address] [place] FINAL PERFORMING LAB [facility] Comment on above: Order Comment: Speci men Type: TISSUE SPECIMEN Ordering Facility: [facility] Address: [address] [place] [address] Result Comment: Diag nostic interpretation performed at [facility], [address] [place] [address] CLIA# [id number] Box Stamper: Aleksandr Irvin M.D. Performed By: #### S #### [facility] CLIA [id number] [address] [place] [address] [place] GROSS DESCRIPTION [facility] Comment on above: Order Comment: Speci men Type: TISSUE SPECIMEN Ordering Facility: [facility] Address: [address] [place] [address] Result Comment: A. S TOMACH BIOPSY Received in formalin is one piece of kaplan, soft tissue measuring 0.7 x 0.2 x 0.2 cm. Totally submitted in one cassette. B. ESOPHAGUS BIOPSY Received in formalin is one piece of kaplan, soft tissue measuring 0.6 x 0.2 x 0.2 cm. Totally submitted in one cassette. [facility] December 18, 2022 5:00 PM Gross examination performed at [facility], [address] [place] [address] Performed By: #### S #### [facility] CLIA [id number] [address] [place] [address] [place] [place] Upper GI endoscopyon 05-10-2 023 Upper GI endoscopy [facility] Gastrointestinal Endoscopy Patient Name: Sky Zamudio Procedure Date: 12/18/2022 12:11 PM Date of : 1970 Admit Type: Outpatient Age: 52 Room: [facility] Gender: Female Note Status: Finalized Attending MD: Hilda Edwards MD Procedure: Upper GI endoscopy Indications: Generalized abdominal pain Providers: Hilda Edwards MD Patient Profile: This is a 52 year old female. Refer to note in patient chart for documentation of history and physical. Referring Physician: Hilda Edwards MD (Referring MD) Medicines: Monitored Anesthesia Care Complications: No immediate complications. Requesting Provider: Procedure: Pre-Anesthesia Assessment: - Prior to the procedure, a History and Physical was performed, and patient medications and allergies were reviewed. The patient is competent. The risks and benefits of the procedure and the sedation options and risks were discussed with the patient. All questions were answered and informed consent was obtained. Patient identification and proposed procedure were verified by the physician, the nurse and the control clerk head in the procedure room. Mental Status Examination: alert and oriented. Respiratory Examination: clear to auscultation. Prophylactic Antibiotics: The patient does not require prophylactic antibiotics. Prior Anticoagulants: The patient has taken no anticoagulant or antiplatelet agents. ASA Grade Assessment: III - A patient with severe systemic disease. After reviewing the risks and benefits, the patient was deemed in satisfactory condition to undergo the procedure. The anesthesia plan was to use monitored anesthesia care (MAC). Immediately prior to administration of medications, the patient was re-assessed for adequacy to receive sedatives. The heart rate, respiratory rate, oxygen saturations, blood pressure, adequacy of pulmonary ventilation, and response to care were monitored throughout the procedure. The physical status of the patient was re-assessed after the procedure. After obtaining informed consent, the endoscope was passed under direct vision. Throughout the procedure, the patient's blood pressure, pulse, and oxygen saturations were monitored continuously. The was introduced through the mouth, and advanced to the jejunum. The upper GI endoscopy was accomplished without difficulty. The patient tolerated the procedure well. Moderate Sedation: MAC anesthesia was administered by the anesthesia team. Total Procedure Duration: 0 hours 5 minutes 26 seconds Findings: The examined jejunum was normal. The examined duodenum was normal. Scattered mild inflammation characterized by erythema was found in the entire examined stomach. Biopsies were taken with a cold forceps for histology. The gastroesophageal junction was normal. Non-severe esophagitis with no bleeding was found in the lower third of the esophagus. Biopsies were taken with a cold forceps for histology. Impression: - Normal examined jejunum. - Normal examined duodenum. - Gastritis. Biopsied. - Normal gastroesophageal junction. - Non-severe reflux esophagitis with no bleeding. Biopsied. Recommendation: - Discharge patient to home. - Resume previous diet. - Continue present medications. - Await pathology results. - Telephone my office for pathology results in 3 days. Procedure Code(s): --- Professional --- 70796, Esophagogastroduodenos copy, flexible, transoral; with biopsy, single or multiple CPT copyright 2020 [employer]. All rights reserved. The codes documented in this report are preliminary and upon pin worker review may be revised to meet current compliance requirements. Attending Participation: I was present and participated during the entire procedure, including non-felix portions, and during the administration and monitoring of Moderate Sedation. Scope In: 12:52:29 PM Scope Out: 12:57:55 PM MD Hilda Rodriguez MD 12/18/2022 1:25:51 PM This report has been signed electronically by Hilda Edwards MD Number of Addenda: 0 Note Initiated On: 12/18/2022 12:11 PM Estimated Blood Loss: Estimated blood loss: none. Normal [facility] XR ABDOMEN 2V ROUTINE SUPINE W UPRIGHT/DECUB/CTLon 12-16-2022 [facility] XR TOE AP/LAT/OBL LEFTon [facility] UA DIP, URINE (POC)on 2022 BILIRUBIN UA (POCT) Negative Negative [facility] CLARITY UA (POCT) Clear [facility] COLOR UA (POCT) Yellow [facility] GLUCOSE UA (POCT) Negative Negative mg/dL [facility] HEMOGLOBIN/BLOOD UA (POCT) Negative Negative [facility] KETONE UA (POCT) Negative Negative mg/dL [facility] LEUKOCYTES UA (POCT) Small Abnormal Negative [facility] NITRITE UA (POCT) Negative Negative [facility] PH UA (POCT) 7.0 4.5 - 8.0 [facility] Protein Ql (U) Negative Negative mg/dL [facility] SPECIFIC GRAVITY UA (POCT) 1.015 1.005 - 1.030 [facility] UROBILINOGEN UA (POCT) 0.2 E.U./dL Normal E.U./dL [facility] Office Visiton 09-19-2022 Follow-up visit [id number] RobbSky Saavedra 1970 F Date Provider Department Center 09/19/2022 [id number] [facility] None Family History Problem Relation Age of Onset Crohn's disease Brother Diabetes Maternal Grandmother Cancer Father Comments: skin cancer, type unknown Heart disease Maternal Grandmother Family Status - Relation Status Age at Brother Maternal Grandmother Father Alive Mother Alive Level of Service:13305 [place] OFFICE/OUTPATIENT ESTABLISHED MOD MDM 30-39 MIN (25) Reason for Visit and Comments: Annual Exam [83] - LV 08/21/2020 ([facility]) Normal [facility] PATINSon 09-19-2022 PATINS Start: Rx: Efudex (fluorouracil) cream Apply a very thin layer to the forehead twice daily x 2 weeks. Patient thoroughly educated about treatment with Efudex, including risks and benefits and detailed application instructions. The severity of your reaction to this medication cannot be predicted. It is normal to have some redness/ irritation and crusting, but to stop treatment if patient develops any open sores, weeping, oozing, ulceration. If any issues with treatment, stop for a few days and then restart until completing 2 week treatment course. The skin must be protected from sun exposure; use clothing, sunscreen, hats, etc. Apply 15-20 minutes before any other creams or makeup. Do not get into eyes. Start: Triamcinolone Ointment- Apply to affected areas on the back twice daily x 2 weeks. Stop using when clear. Repeat as needed for flares. Do not use on face, armpits, groin. Sunscreen Use & Sun Safety It is recommended a water-resistant, broad-spectrum sunscreen with SPF of at least 15 to 30. Apply sunscreen to all exposed skin 30 minutes before sun exposure, and then every 2 hours. Apply sooner if sweating or coming out of pool/water. Using the proper amount of sunscreen in important. An adult should use about 1-1.5 oz of sunscreen to the entire body, about 2-3 tablespoons per application. Use a lip balm with SPF 30 or higher to protect the lips from sun damage. Limit time in the sun, especially between 10 AM and 2 PM when the sun?s rays are the strongest. Clothing labeled with a UPF (ultra-kenn protection factor) rating indicates that it?s protective against UV rays. Also, wear wide-brimmed hats, and sunglasses for sun protection. The nature of sun-induced photo-aging and skin cancers was discussed. Sun avoidance, protective clothing, and the use of Broad spectrum (UVA and UVB) minimum 30-SPF sunscreens is advised. Apply sunscreen 30 minutes prior to sun exposure, and reapply every 2 hours and as needed after swimming or sweating. Observe closely for skin damage/changes, and call if such occurs. Patient advised to perform monthly skin exams; checking the skin for any new or changing lesions. Any lesions that are new, elevated, firm and/or growing should be evaluated in our office. Patient reminded to schedule appointments with weight control engineer, dentist and plant safety engineer as melanoma can also occur in these locations. Those appointments should be repeated annually or more frequently if physician deems necessary. Also look for ABCDEs of Melanoma (warning signs): Asymmetry- the appearance of one side of the mole doesn't look like the other side. Borders- the borders of the mole are jagged, notched or smeared. Color- there are multiple colors in the mole, or it has changed colors. It can become darker, red or even lose pigment. Diameter- diameter greater than 6mm or the size of a pencil eraser. Evolution- Any change or evolving in size, shape or color of a mole. Also, any new symptom like bleeding, pain or itching may be a warning sign. You can visit the [employer] at skincancer.org for more information on melanoma and other skin cancers. [facility] Progress Noteon 09-19-2022 Progress Note DATE OF SERVICE: 09/19/2022 PATIENT NAME: Sky Zamudio : 1970 AGE: 52 y.o. CLINIC NUMBER: [id number] Visit type: Established patient Chief Complaint Patient presents with Annual Exam LV 08/21/2020 ([facility]B) Subjective HISTORY OF PRESENT ILLNESS: Sky Zamudio is a 52 y.o. who presents to the office for a check up. Patient's last FSE was done on 08/21/2020. Patient has a history of AKs treated with LN2 and Efudex. Family history of NMSC. C/o-skin lesion located on the scalp x a few years. Admits itching, Denies bleeding, pain. Denies changes in size, shape, color. Admits previous treatment with LN2. Patient has no h/o of ATN. Patient has h/o of AKs. Pt has treated her forehead with efudex in the past. Patient has no personal h/o skin cancer. Patient has family h/o melanoma. - Pt reports her father and brother had unknown type of skin cancer. Are you or ? No History of pacemaker/defibrillato r? No History of HIV/Hep C? No Allergies to Lidocaine, Epinephrine, Latex or Adhesive? No Review of Systems There were no vitals filed for this visit. PHYSICAL EXAM: GENERAL APPEARANCE:?alert and oriented x3, well developed and well nourished. PSYCH: appropriate mood and affect 1. Actinic keratoses (3) Left Forehead, Mid Frontal Scalp (2) [place] scaly macule(s) Patient educated on actinic keratosis and the possibility of transformation into SCC. Treatment options are discussed with risks and benefits reviewed. Cryotherapy is agreed upon and performed. Reassured that redness, swelling and the formation of a blister at the site of cryotherapy are possible reactions. After care instructions are given and reviewed. Patient to apply Vaseline to treated sites while healing. Patient to monitor for resolution. If unresolved after 2-3 months, patient to return for further evaluation and management Cryotherapy Actinic Keratosis: Medical Necessity: It was explained to the patient that actinic keratoses are precancerous. Consent: The patient understood all the risks and benefits prior to treatment. The risks explained included scarring, hyper and/or hypopigmentation. Although this treatment is highly effective, recurrences do occur and this was explained to the patient. The patient further understood that these lesions are precancerous and may develop into a malignancy. Method: Liquid nitrogen was used to treat the lesion(s) with two freeze-thaw cycles. Post-op: The patient was instructed to clean the site normally twice a day. Signs of infection were reviewed and patient was instructed to call if he/ she develops increasing pain, purulent drainage, or beefy redness. The patient was informed that a blister may occur at the cryo site and that this is an expected event. Sun protection was reviewed and patient advised to use sunscreen with SPF 30 or greater on exposed skin when outdoors. Post-op instructions were given orally and in writing. Cryotherapy, skin lesion - Left Forehead, Mid Frontal Scalp (2) 2. Actinic skin damage Head - Anterior (Face) [x]Chronic []Acute []Stable [x]Flaring/Exacerbatio n Educated and reassured. Treatment options, risks, benefits, and expectations reviewed. The nature of sun-induced photo-aging and skin cancers was discussed. Sun avoidance, protective clothing, and the use of Broad spectrum (UVA and UVB) minimum 30-SPF sunscreens is advised. Apply sunscreen 30 minutes prior to sun exposure, and reapply every 2 hours and as needed after swimming or sweating. Observe closely for skin damage/changes, and call if such occurs. Start: Efudex- Apply a thin layer to forehead BID x 2 weeks. Related Medications fluorouracil (Efudex) 5 % cream Apply a thin layer to forehead BID x 2 weeks. 3. Pruritus Right Upper Back [x]Chronic []Acute []Stable [x]Flaring/Exacerbatio n Educated and reassured. Treatment options, risks, benefits, and expectations reviewed. Anticipate improvement with Triamcinolone Ointment. Start: Triamcinolone Ointment- Apply to the affected areas on the back BID x 2 weeks. Stop using when clear. Related Medications triamcinolone (Kenalog) 0.1 % ointment Apply to affected areas on the back BID x 2 weeks. Stop using when clear. Repeat as needed for flares. Do not use on face, armpits, groin. 4. Multiple benign nevi Scattered uniform brown macules No treatment is needed for the benign appearing and asymptomatic lesions described above. The ABCDE (Asymmetry, Border, Color, Diameter, Evolution/Change) criteria used to evaluate pigmented lesions were reviewed with the patient. Patient educated on the proper use of sunscreen, SPF 30 or greater, and how often to reapply. Try to limit sun exposure to powerhouse helper or late evening hours. Patient advised to perform self-skin checks and call for follow up appointment if any new or concerning lesions detected. 5. Golden angioma Bright red vascular (more content not included)... Normal [facility] XR ANKLE GENERAL 3V AP/LAT/O BL RIGHTon 08-29-2022 [facility] URINE CULTUREon 08-28-2022 Bacteria identified Cx Nom (U) <10,000 CFU/ml Normal urogenital hermann [facility] XR Ribs - left Views and [address] PAon 08-28-2022 IMPRESSION: No acute process is seen. Environmental Field Technician: NIKKIB Transcribe Date/Time: Aug 28 2022 8:29A Dictated by : YONY MCCAIN MD This examination was interpreted and the report reviewed and electronically signed by: YONY MCCAIN MD on Aug 28 2022 8:31AM EST DIVISION OF RADIOLOGY * * *Final Report* * * DATE OF EXAM: Aug 27 2022 11:43AM WOX [id number] - XR RIB/CHST 3V AP RIB/OBL/CHST L / PROCEDURE REASON: Rib pain * * * * Physician Interpretation * * * * History: Rib pain FINDINGS: Frontal expiration view of the chest and 4 additional views of the left ribs have been obtained. No acute parenchymal or pleural process is seen. The heart is not enlarged. There is no pneumothorax. Osseous structures are intact. DIVISION OF RADIOLOGY [facility] - 08/28/2022 * * *Final Report* * * DATE OF EXAM: Aug 27 2022 11:43AM WOX 5243 - XR RIB/CHST 3V AP RIB/OBL/CHST L / PROCEDURE REASON: Rib pain * * * * Physician Interpretation * * * * History: Rib pain FINDINGS: Frontal expiration view of the chest and 4 additional views of the left ribs have been obtained. No acute parenchymal or pleural process is seen. The heart is not enlarged. There is no pneumothorax. Osseous structures are intact. IMPRESSION IMPRESSION: No acute process is seen. Environmental Field Technician: [facility] Transcribe Date/Time: Aug 28 2022 8:29A Dictated by : YONY MCCAIN MD This examination was interpreted and the report reviewed and electronically signed by: YONY MCCAIN MD on Aug 28 2022 8:31AM EST [facility] XR Ribs - left Views and [address] PAOrdered By: Ccf Provider on 08-28-2022 [facility] UA DIP, URINE (POC)on 2022 BILIRUBIN UA (POCT) Negative Negative [facility] CLARITY UA (POCT) Clear [facility] COLOR UA (POCT) Yellow [facility] GLUCOSE UA (POCT) Negative Negative mg/dL [facility] Hemoglobin Ql (U) Negative Negative [facility] Interpretation and review of laboratory results Abnormal [facility] KETONE UA (POCT) Negative Negative mg/dL [facility] LEUKOCYTES UA (POCT) Small Abnormal Negative [facility] NITRITE UA (POCT) Negative Negative [facility] PH UA (POCT) 6.5 4.5 - 8.0 [facility] Protein Ql (U) Negative Negative mg/dL [facility] SPECIFIC GRAVITY UA (POCT) 1.015 1.005 - 1.030 [facility] UROBILINOGEN UA (POCT) 0.2 Normal E.U./dL [facility] Location:[address], [place], [place], [id number] [place] [address] POINT OF CARE [facility] XR RIBS/CHEST 3V AP RIB/OBLS /CXR LEFTon 08-27-2022 [facility] XR Ribs - left Views and [address] PAon 08-27-2022 Radiology Study observation (narrative) [facility] XR Shoulder - right 3 Viewso n 08-19-2022 IMPRESSION: No acute osseous findings. Environmental Field Technician: KATHRYN Transcribe Date/Time: Aug 19 2022 5:56P Dictated by : ADAN ALVARADO MD This examination was interpreted and the report reviewed and electronically signed by: ADAN ALVARADO MD on Aug 19 2022 5:57PM [facility] DIVISION OF RADIOLOGY * * *Final Report* * * DATE OF EXAM: Aug 19 2022 5:29PM WOX [id number] - XR SHLDR >/=3V AP/HUMBLE AP/OTHR RT / PROCEDURE REASON: Acute pain of right shoulder * * * * Physician Interpretation * * * * EXAMINATION: XR SHLDR >/=3V AP/HUMBLE AP/OTHR RT CLINICAL HISTORY: fell on and pain started a week after midway bet. the right shoulder and neck in trap area no pain in shoulder itslef Acute pain of right shoulder Technique: XR SHLDR >/=3V AP/HUMBLE AP/OTHR RT -- RIGHT with 3 views on 3 images Comparison: 08/14/2021 RESULT: No fracture or dislocation. Glenohumeral joint is maintained. Narrowing of the acromioclavicular joint, unchanged. Acromiohumeral interval is preserved. Adjacent ribs and lungs are unremarkable. DIVISION OF RADIOLOGY Provider, [facility] - 08/19/2022 * * *Final Report* * * DATE OF EXAM: Aug 19 2022 5:29PM WOX 5253 - XR SHLDR >/=3V AP/HUMBLE AP/OTHR RT / PROCEDURE REASON: Acute pain of right shoulder * * * * Physician Interpretation * * * * EXAMINATION: XR SHLDR >/=3V AP/HUMBLE AP/OTHR RT CLINICAL HISTORY: fell on and pain started a week after midway bet. the right shoulder and neck in trap area no pain in shoulder itslef Acute pain of right shoulder Technique: XR SHLDR >/=3V AP/HUMBLE AP/OTHR RT -- RIGHT with 3 views on 3 images Comparison: 08/14/2021 RESULT: No fracture or dislocation. Glenohumeral joint is maintained. Narrowing of the acromioclavicular joint, unchanged. Acromiohumeral interval is preserved. Adjacent ribs and lungs are unremarkable. IMPRESSION IMPRESSION: No acute osseous findings. Environmental Field Technician: [facility] Transcribe Date/Time: Aug 19 2022 5:56P Dictated by : ADAN ALVARADO MD This examination was interpreted and the report reviewed and electronically signed by: ADAN ALVARADO MD on Aug 19 2022 5:57PM EST [facility] Radiology Study observation (narrative) [facility] XR Shoulder - right 3 ViewsO rdered By: Cc Provider on 08-19-2022 [facility] UA DIP, URINE (POC)on 2021 BILIRUBIN UA (POCT) Negative Negative [facility] CLARITY UA (POCT) Slightly Cloudy Cl [facility] COLOR UA (POCT) Dark yellow [facility] GLUCOSE UA (POCT) Negative Negative mg/dL [facility] HEMOGLOBIN/BLOOD UA (POCT) Negative Negative [facility] KETONE UA (POCT) Negative Negative mg/dL [facility] LEUKOCYTES UA (POCT) Small Abnormal Negative [facility] NITRITE UA (POCT) Negative Negative [facility] PH UA (POCT) 5.5 4.5 - 8.0 [facility] Protein Ql (U) Negative Negative mg/dL [facility] SPECIFIC GRAVITY UA (POCT) 1.025 1.005 - 1.030 [facility] UROBILINOGEN UA (POCT) 0.2 E.U./dL Normal E.U./dL [facility] HbA1c (Bld)on 11-15-2021 Average glucose Estimated from glycated hemoglobin (Bld) [Mass/Vol] 114 mg/dL [facility] HbA1c (Bld) [Mass fraction] 5.6 % 4.3 - 5.6 % [facility] CBC panel Auto (Bld)on 11-14 Erythrocyte distribution width (RBC) [Ratio] 12.7 % 11.5 - 15.0 % [facility] Hematocrit (Bld) [Volume fraction] 49.3 % High 36.0 - 46.0 % [facility] Hemoglobin (Bld) [Mass/Vol] 15.9 g/dL High 11.5 - 15.5 g/dL [facility] MCH (RBC) [Entitic mass] 29.9 pg 26.0 - 34.0 pg [facility] MCHC (RBC) [Mass/Vol] 32.3 g/dL 30.5 - 36.0 g/dL [facility] MCV (RBC) [Entitic vol] 92.8 fL 80.0 - 100.0 fL [facility] Nucleated RBC (Bld) [#/Vol] 10*3/uL <0.01 k/uL [facility] Platelet mean volume (Bld) [Entitic vol] 9.5 fL 9.0 - 12.7 fL [facility] Platelets (Bld) [#/Vol] 375 10*3/uL 150 - 400 k/uL [facility] RBC (Bld) [#/Vol] 5.31 10*6/uL High 3.90 - 5.2 0 m/uL [facility] WBC (Bld) [#/Vol] 12.60 10*3/uL High 3.70 - 11 .00 k/uL [facility] Comprehensive metabolic 2000 panelon 11-14-2021 Albumin [Mass/Vol] 4.3 g/dL 3.9 - 4.9 g/dL [facility] ALP [Catalytic activity/Vol] 165 U/L High 34 - 123 U/L [facility] ALT [Catalytic activity/Vol] 16 U/L 7 - 38 U/L [facility] Anion gap [Moles/Vol] 13 mmol/L 9 - 18 mmol/L [facility] AST [Catalytic activity/Vol] 19 U/L 13 - 35 U/L [facility] Bilirubin [Mass/Vol] 0.3 mg/dL 0.2 - 1 .3 mg/dL [facility] Calcium [Mass/Vol] 9.5 mg/dL 8.5 - 10. 2 mg/dL [facility] Chloride [Moles/Vol] 102 mmol/L 97 - 10 5 mmol/L [facility] CO2 [Moles/Vol] 25 mmol/L 22 - 30 mmol/L [facility] Creatinine [Mass/Vol] 0.76 mg/dL 0.58 - 0.96 mg/dL [facility] Estimated Glomerular Filtration Rate 95 mL/min/1.73m >=60 mL/min/1.73m [facility] Glucose [Mass/Vol] 79 mg/dL 74 - 99 mg/dL [facility] Potassium [Moles/Vol] 4.4 mmol/L 3.7 - 5.1 mmol/L [facility] Protein [Mass/Vol] 7.6 g/dL 6.3 - 8.0 g/dL [facility] Sodium [Moles/Vol] 140 mmol/L 136 - 144 mmol/L [facility] Urea nitrogen [Mass/Vol] 15 mg/dL 7 - 21 mg/dL [facility] MAGNESIUM BLDon 11-14-2021 Magnesium [Mass/Vol] 2.2 mg/dL 1.7 - 2 .3 mg/dL [facility] VITAMIN D 25 HYDROXYon 11-14 25-hydroxyvitamin D3 [Mass/Vol] 33.4 ng/mL 31.0 - 80.0 ng/mL [facility] XR Foot - left AP and Latera l and obliqueon 02-06-2021 IMPRESSION: No acute osseous abnormality identified. Environmental Field Technician: KATHRYN Transcribe Date/Time: Feb 06 2021 3:57P Dictated by : PRISCA SIMONS MD This examination was interpreted and the report reviewed and electronically signed by: PRISCA SIMONS MD on Feb 06 2021 3:58PM EST DIVISION OF RADIOLOGY * * *Final Report* * * DATE OF EXAM: Feb 06 2021 3:56PM WOX [id number] - XR FOOT 3V AP/LAT/OBL LT / PROCEDURE REASON: multiple diagnoses * * * * Physician Interpretation * * * * Left foot radiographs HISTORY: 50 years old Clinical information: Pain of toe of left foot Foot pain, left Left 4th toe pain after a jamming injury TECHNIQUE: Images: XR FOOT 3V AP/LAT/OBL LT Comparison: None. RESULT: Findings: No fracture or dislocation. Plantar calcaneal spur. No soft tissue abnormality identified. DIVISION OF RADIOLOGY Provider, [facility] - 02/06/2021 * * *Final Report* * * DATE OF EXAM: Feb 06 2021 3:56PM WOX 5336 - XR FOOT 3V AP/LAT/OBL LT / PROCEDURE REASON: multiple diagnoses * * * * Physician Interpretation * * * * Left foot radiographs HISTORY: 50 years old Clinical information: Pain of toe of left foot Foot pain, left Left 4th toe pain after a jamming injury TECHNIQUE: Images: XR FOOT 3V AP/LAT/OBL LT Comparison: None. RESULT: Findings: No fracture or dislocation. Plantar calcaneal spur. No soft tissue abnormality identified. IMPRESSION IMPRESSION: No acute osseous abnormality identified. Environmental Field Technician: [facility] Transcribe Date/Time: Feb 06 2021 3:57P Dictated by : PRISCA SIMONS MD This examination was interpreted and the report reviewed and electronically signed by: PRISCA SIMONS MD on Feb 06 2021 3:58PM EST [facility] Radiology Study observation (narrative) [facility] XR Foot - left AP and Latera l and obliqueOrdered By: Ccf Provider on 02-06-2021 [facility] Vital Signs Date Time Vital Sign Value Performing Clinician Facility 05-26-2024 10:06-0400 Body mass index (BMI) [Ratio] 46.69 kg/m2 Trinh Wayne APRN.CNP Work Phone: [facility] 05-26-2024 10:06-0400 Body weight 123.38 kg Trinh Older TRANSPORTATION ASSISTANT.TIMBER HAND Work Phone: [facility] 05-26-2024 10:06-0400 Diastolic blood pressure 80 mm[Hg] Trinh Older TRANSPORTATION ASSISTANT.TIMBER HAND Work Phone: [facility] 05-26-2024 10:06-0400 Heart rate 101 /min Trinh Older TRANSPORTATION ASSISTANT.TIMBER HAND Work Phone: [facility] 05-26-2024 10:06-0400 Respiratory rate 16 /min Trinh Older TRANSPORTATION ASSISTANT.TIMBER HAND Work Phone: [facility] 05-26-2024 10:06-0400 SaO2% (BldA) [Mass fraction] 98 % Trinh Older TRANSPORTATION ASSISTANT.TIMBER HAND Work Phone: [facility] 05-26-2024 10:06-0400 Systolic blood pressure 128 mm[Hg] Trinh Older TRANSPORTATION ASSISTANT.TIMBER HAND Work Phone: [facility] 04-21-2024 12:03-0400 Body mass index (BMI) [Ratio] 47.55 kg/m2 Hilda Edwards MD Work Phone: [facility] 04-21-2024 12:03-0400 Body temperature 97 [degF] Hilda Edwards MD Work Phone: [facility] 04-21-2024 12:03-0400 Body weight 125.65 kg Hilda Edwards MD Work Phone: [facility] 04-21-2024 12:03-0400 Diastolic blood pressure 82 mm[Hg] Hilda Edwards MD Work Phone: [facility] 04-21-2024 12:03-0400 Heart rate 110 /min Hilda Edwards MD Work Phone: [facility] 04-21-2024 12:03-0400 SaO2% (BldA) [Mass fraction] 96 % Hilda Edwards MD Work Phone: [facility] 04-21-2024 12:03-0400 Systolic blood pressure 138 mm[Hg] Hilda Edwards MD Work Phone: [facility] 04-08-2024 13:11-0400 Body mass index (BMI) [Ratio] 46.89 kg/m2 Americo Khan TRANSPORTATION ASSISTANT.SUPERVISOR [employer] Work Phone: [facility] 04-08-2024 13:11-0400 Body weight 123.9 kg Americo Khan TRANSPORTATION ASSISTANT.SUPERVISOR [employer] Work Phone: [facility] 04-08-2024 13:11-0400 Diastolic blood pressure 78 mm[Hg] Americo Khan TRANSPORTATION ASSISTANT.SUPERVISOR [employer] Work Phone: [facility] 04-08-2024 13:11-0400 Heart rate 91 /min Americo Khan TRANSPORTATION ASSISTANT.SUPERVISOR [employer] Work Phone: [facility] 04-08-2024 13:11-0400 Respiratory rate 16 /min Americo Khan TRANSPORTATION ASSISTANT.SUPERVISOR [employer] Work Phone: [facility] 04-08-2024 13:11-0400 Systolic blood pressure 115 mm[Hg] Americo Khan TRANSPORTATION ASSISTANT.SUPERVISOR [employer] Work Phone: [facility] 04-05-2024 21:34-0400 Diastolic Blood Pressure Non-Invasive 68 mm[Hg] ARETHA VIDES MD [facility] 04-05-2024 21:34-0400 Heart rate 90 /min ARETHA VIDES MD [facility] 04-05-2024 21:34-0400 Respiratory rate 18 /min ARETHA VIDES MD [facility] 04-05-2024 21:34-0400 Systolic Blood Pressure Non-Invasive 120 mm[Hg] ARETHA VIDES MD [facility] 04-05-2024 20:16-0400 Blood Pressure Cuff Size ARETHA VIDES MD [facility] 04-05-2024 20:16-0400 Blood Pressure Location ARETHA VIDES MD [facility] 04-05-2024 20:16-0400 Blood Pressure Method ARETHA VIDES MD [facility] 04-05-2024 20:16-0400 Body temperature 98.6 [degF] ARETHA VIDES MD [facility] 04-05-2024 20:16-0400 Diastolic Blood Pressure Non-Invasive 69 mm[Hg] ARETHA VIDES MD [facility] 04-05-2024 20:16-0400 Heart rate 93 /min ARETHA VIDES MD [facility] 04-05-2024 20:16-0400 Respiratory rate 18 /min ARETHA VIDES MD [facility] 04-05-2024 20:16-0400 Systolic Blood Pressure Non-Invasive 121 mm[Hg] ARETHA VIDES MD [facility] 04-03-2024 20:57-0400 Blood Pressure Location ARETHA VIDES MD [facility] 04-03-2024 20:57-0400 Blood Pressure Method ARETHA VIDES MD [facility] 04-03-2024 20:57-0400 Diastolic Blood Pressure Non-Invasive 74 mm[Hg] ARETHA VIDES MD [facility] 04-03-2024 20:57-0400 Heart rate 88 /min ARETHA VIDES MD [facility] 04-03-2024 20:57-0400 Reason For Taking VItal Signs ARETHA VIDES MD [facility] 04-03-2024 20:57-0400 Respiratory rate 16 /min ARETHA VIDES MD [facility] 04-03-2024 20:57-0400 Systolic Blood Pressure Non-Invasive 125 mm[Hg] ARETHA VIDES MD [facility] 04-03-2024 19:41-0400 Blood Pressure Location ARETHA VIDES MD [facility] 04-03-2024 19:41-0400 Blood Pressure Method ARETHA VIDES MD [facility] 04-03-2024 19:41-0400 Body height 162.6 cm ARETHA VIDES MD [facility] 04-03-2024 19:41-0400 Body temperature 97.7 [degF] ARETHA VIDES MD [facility] 04-03-2024 19:41-0400 Body weight 122 kg ARETHA VIDES MD [facility] 04-03-2024 19:41-0400 Diastolic Blood Pressure Non-Invasive 85 mm[Hg] ARETHA VIDES MD [facility] 04-03-2024 19:41-0400 Heart rate 99 /min ARETHA VIDES MD [facility] 04-03-2024 19:41-0400 Respiratory rate 16 /min ARETHA VIDES MD [facility] 04-03-2024 19:41-0400 Systolic Blood Pressure Non-Invasive 125 mm[Hg] ARETHA VIDES MD [facility] 03-25-2024 13:31-0400 Body mass index (BMI) [Ratio] 46.24 kg/m2 Americo Khan APRN.SUPERVISOR [employer] Work Phone: [facility] 03-25-2024 13:31-0400 Body weight 122.2 kg Americo Khan TRANSPORTATION ASSISTANT.SUPERVISOR [employer] Work Phone: [facility] 03-25-2024 13:31-0400 Diastolic blood pressure 82 mm[Hg] Americo Khan TRANSPORTATION ASSISTANT.SUPERVISOR [employer] Work Phone: [facility] 03-25-2024 13:31-0400 Heart rate 102 /min Americo Khan TRANSPORTATION ASSISTANT.SUPERVISOR [employer] Work Phone: [facility] 03-25-2024 13:31-0400 Respiratory rate 16 /min Americo Khan TRANSPORTATION ASSISTANT.SUPERVISOR [employer] Work Phone: [facility] 03-25-2024 13:31-0400 Systolic blood pressure 128 mm[Hg] Americo Khan TRANSPORTATION ASSISTANT.SUPERVISOR [employer] Work Phone: [facility] 12-15-2023 16:29-0400 Body mass index (BMI) [Ratio] 44.46 kg/m2 Elliott Mahajan MD Work Phone: [facility] 12-15-2023 16:29-0400 Body temperature 96.8 [degF] Elliott Mahajan MD Work Phone: [facility] 12-15-2023 16:29-0400 Body weight 117.48 kg Elliott Mahajan MD Work Phone: [facility] 12-15-2023 16:29-0400 Diastolic blood pressure 78 mm[Hg] Elliott Mahajan MD Work Phone: [facility] 12-15-2023 16:29-0400 Heart rate 108 /min Elliott Mahajan MD Work Phone: [facility] 12-15-2023 16:29-0400 Respiratory rate 18 /min Elliott Mahajan MD Work Phone: [facility] 12-15-2023 16:29-0400 SaO2% (BldA) [Mass fraction] 98 % Elliott Mahajan MD Work Phone: [facility] 12-15-2023 16:29-0400 Systolic blood pressure 122 mm[Hg] Elliott Mahajan MD Work Phone: [facility] 06-17-2023 15:13-0500 Body height 162.6 cm Hilda Edwards MD Work Phone: [facility] 06-17-2023 15:13-0500 Body temperature 97.39 [degF] Hilda Edwards MD Work Phone: [facility] 06-17-2023 15:13-0500 Body weight 114.85 kg Hilda Edwards MD Work Phone: [facility] 06-17-2023 15:13-0500 Diastolic blood pressure 82 mm[Hg] Hilda Edwards MD Work Phone: [facility] 06-17-2023 15:13-0500 Heart rate 116 /min Hilda Edwards MD Work Phone: [facility] 06-17-2023 15:13-0500 SaO2% (BldA) [Mass fraction] 96 % Hilda Edwards MD Work Phone: [facility] 06-17-2023 15:13-0500 Systolic blood pressure 138 mm[Hg] Hilda Edwards MD Work Phone: [facility] 05-21-2023 14:16-0400 Body temperature 97 [degF] Molly Calvin TRANSPORTATION ASSISTANT.TIMBER HAND Work Phone: [facility] 05-21-2023 14:16-0400 Body weight 116.12 kg Molly Calvin TRANSPORTATION ASSISTANT.TIMBER HAND Work Phone: [facility] 05-21-2023 14:16-0400 Diastolic blood pressure 76 mm[Hg] Molly Calvin TRANSPORTATION ASSISTANT.TIMBER HAND Work Phone: [facility] 05-21-2023 14:16-0400 Heart rate 96 /min Molly Calvin TRANSPORTATION ASSISTANT.TIMBER HAND Work Phone: [facility] 05-21-2023 14:16-0400 Respiratory rate 18 /min Molly Calvin TRANSPORTATION ASSISTANT.TIMBER HAND Work Phone: [facility] 05-21-2023 14:16-0400 SaO2% (BldA) [Mass fraction] 98 % Molly Calvin TRANSPORTATION ASSISTANT.TIMBER HAND Work Phone: [facility] 05-21-2023 14:16-0400 Systolic blood pressure 116 mm[Hg] Molly Calvin TRANSPORTATION ASSISTANT.TIMBER HAND Work Phone: [facility] 05-09-2023 11:03-0400 Body temperature 96.91 [degF] Molly Calvin TRANSPORTATION ASSISTANT.TIMBER HAND Work Phone: [facility] 05-09-2023 11:03-0400 Body weight 115.21 kg Molly Calvin TRANSPORTATION ASSISTANT.TIMBER HAND Work Phone: [facility] 05-09-2023 11:03-0400 Diastolic blood pressure 90 mm[Hg] Molly Calvin TRANSPORTATION ASSISTANT.TIMBER HAND Work Phone: [facility] 05-09-2023 11:03-0400 Heart rate 82 /min Molly Calvin TRANSPORTATION ASSISTANT.TIMBER HAND Work Phone: [facility] 05-09-2023 11:03-0400 SaO2% (BldA) [Mass fraction] 98 % Molly Calvin TRANSPORTATION ASSISTANT.TIMBER HAND Work Phone: [facility] 05-09-2023 11:03-0400 Systolic blood pressure 124 mm[Hg] Molly Calvin TRANSPORTATION ASSISTANT.TIMBER HAND Work Phone: [facility] 05-03-2023 16:49-0400 Diastolic Blood Pressure Non-Invasive 81 1 ADAN JI MD [facility] 05-03-2023 16:49-0400 Heart rate 97 /min ADAN JI MD [facility] 05-03-2023 16:49-0400 Mean blood pressure 89 mm[Hg] ADAN JI MD [facility] 05-03-2023 16:49-0400 Reason For Taking VItal Signs ADAN JI MD [facility] 05-03-2023 16:49-0400 Systolic Blood Pressure Non-Invasive 116 1 ADAN JI MD [facility] 05-03-2023 14:36-0400 Diastolic Blood Pressure Non-Invasive 75 1 ADAN JI MD [facility] 05-03-2023 14:36-0400 Heart rate 93 /min ADAN JI MD [facility] 05-03-2023 14:36-0400 Reason For Taking VItal Signs ADAN JI MD [facility] 05-03-2023 14:36-0400 Respiratory rate 20 /min ADAN JI MD [facility] 05-03-2023 14:36-0400 Systolic Blood Pressure Non-Invasive 141 1 ADAN JI MD [facility] 05-03-2023 11:49-0400 Diastolic Blood Pressure Non-Invasive 70 1 ADAN JI MD [facility] 05-03-2023 11:49-0400 Heart rate 97 /min ADAN JI MD [facility] 05-03-2023 11:49-0400 Mean blood pressure 85 mm[Hg] ADAN JI MD [facility] 05-03-2023 11:49-0400 Reason For Taking VItal Signs ADAN JI MD [facility] 05-03-2023 11:49-0400 Respiratory rate 20 /min ADAN JI MD [facility] 05-03-2023 11:49-0400 Systolic Blood Pressure Non-Invasive 123 1 ADAN JI MD [facility] 05-03-2023 11:00-0400 Mean blood pressure 94 mm[Hg] ADAN JI MD [facility] 05-03-2023 09:21-0400 Blood Pressure Location ADAN JI MD [facility] 05-03-2023 09:21-0400 Body temperature 99.14 [degF] ADAN JI MD [facility] 03-20-2023 15:00-0400 Body height 162.6 cm Hilda Edwards MD Work Phone: [facility] 03-20-2023 15:00-0400 Body temperature 93 [degF] Hilda Edwards MD Work Phone: [facility] 03-20-2023 15:00-0400 Body weight 120.75 kg Hilda Edwards MD Work Phone: [facility] 03-20-2023 15:00-0400 Diastolic blood pressure 88 mm[Hg] Hilda Edwards MD Work Phone: [facility] 03-20-2023 15:00-0400 Heart rate 120 /min Hilda Edwards MD Work Phone: [facility] 03-20-2023 15:00-0400 SaO2% (BldA) [Mass fraction] 93 % Hilda Edwards MD Work Phone: [facility] 03-20-2023 15:00-0400 Systolic blood pressure 130 mm[Hg] Hilda Edwards MD Work Phone: [facility] 02-25-2023 14:59-0400 Body temperature 96.69 [degF] Molly Simpson APRN.TIMBER HAND Work Phone: [facility] 02-25-2023 14:59-0400 Body weight 121.56 kg Molly Simpson APRN.TIMBER HAND Work Phone: [facility] 07-18-2023 14:59-0400 Diastolic blood pressure 84 mm[Hg] Molly Calvin TRANSPORTATION ASSISTANT.TIMBER HAND Work Phone: [facility] 02-25-2023 14:59-0400 Heart rate 102 /min Molly Calvin TRANSPORTATION ASSISTANT.TIMBER HAND Work Phone: [facility] 02-25-2023 14:59-0400 SaO2% (BldA) [Mass fraction] 98 % Molly Calvin TRANSPORTATION ASSISTANT.TIMBER HAND Work Phone: [facility] 02-25-2023 14:59-0400 Systolic blood pressure 132 mm[Hg] Molly Calvin TRANSPORTATION ASSISTANT.TIMBER HAND Work Phone: [facility] 02-08-2023 10:41-0400 Body temperature 98.01 [degF] Elliott Mahajan MD Work Phone: [facility] 02-08-2023 10:41-0400 Body weight 121.56 kg Elliott Mahajan MD Work Phone: [facility] 02-08-2023 10:41-0400 Diastolic blood pressure 71 mm[Hg] Elliott Mahajan MD Work Phone: [facility] 02-08-2023 10:41-0400 Heart rate 97 /min Elliott Mahajan MD Work Phone: [facility] 02-08-2023 10:41-0400 Respiratory rate 18 /min Elliott Mahajan MD Work Phone: [facility] 02-08-2023 10:41-0400 SaO2% (BldA) [Mass fraction] 97 % Elliott Mahajan MD Work Phone: [facility] 02-08-2023 10:41-0400 Systolic blood pressure 111 mm[Hg] Elliott Mahajan MD Work Phone: [facility] 01-27-2023 17:02-0400 Body temperature 97.59 [degF] Elliott Mahajan MD Work Phone: [facility] 01-27-2023 17:02-0400 Body weight 118.39 kg Elliott Mahajan MD Work Phone: [facility] 01-27-2023 17:02-0400 Diastolic blood pressure 62 mm[Hg] Elliott Mahajan MD Work Phone: [facility] 01-27-2023 17:02-0400 Heart rate 105 /min Elliott Mahajan MD Work Phone: [facility] 01-27-2023 17:02-0400 Respiratory rate 18 /min Elliott Mahajan MD Work Phone: [facility] 01-27-2023 17:02-0400 SaO2% (BldA) [Mass fraction] 97 % Elliott Mahajan MD Work Phone: [facility] 01-27-2023 17:02-0400 Systolic blood pressure 112 mm[Hg] Elliott Mahajan MD Work Phone: [facility] 12-18-2022 13:45-0400 Body temperature 97.5 [degF] Hilda Edwards MD Work Phone: [facility] 12-18-2022 13:45-0400 Diastolic blood pressure 57 mm[Hg] Hilda Edwards MD Work Phone: [facility] 12-18-2022 13:45-0400 Heart rate 87 /min Hilda Edwards MD Work Phone: [facility] 12-18-2022 13:45-0400 Respiratory rate 18 /min Hilda Edwards MD Work Phone: [facility] 12-18-2022 13:45-0400 SaO2% (BldA) [Mass fraction] 97 % Hilda Edwards MD Work Phone: [facility] 12-18-2022 13:45-0400 Systolic blood pressure 115 mm[Hg] Hilda Edwards MD Work Phone: [facility] 12-14-2022 08:50-0400 Body height 161 cm Hilda Edwards MD Work Phone: [facility] 12-14-2022 08:50-0400 Body weight 121.29 kg Hilda Edwards MD Work Phone: [facility] 12-14-2022 08:50-0400 Diastolic blood pressure 90 mm[Hg] Hilda Edwards MD Work Phone: [facility] 12-14-2022 08:50-0400 Heart rate 101 /min Hilda Edwards MD Work Phone: [facility] 12-14-2022 08:50-0400 SaO2% (BldA) [Mass fraction] 97 % Hilda Edwards MD Work Phone: [facility] 12-14-2022 08:50-0400 Systolic blood pressure 140 mm[Hg] Hilda Edwards MD Work Phone: [facility] 11-18-2022 15:11-0400 Body weight 123.38 kg Molly Calvin TRANSPORTATION ASSISTANT.TIMBER HAND Work Phone: [facility] 11-18-2022 15:11-0400 Diastolic blood pressure 84 mm[Hg] Molly Calvin TRANSPORTATION ASSISTANT.TIMBER HAND Work Phone: [facility] 11-18-2022 15:11-0400 Heart rate 97 /min Molly Calvin TRANSPORTATION ASSISTANT.TIMBER HAND Work Phone: [facility] 11-18-2022 15:11-0400 SaO2% (BldA) [Mass fraction] 97 % Molly Calvin TRANSPORTATION ASSISTANT.TIMBER HAND Work Phone: [facility] 11-18-2022 15:11-0400 Systolic blood pressure 116 mm[Hg] Molly Calvin TRANSPORTATION ASSISTANT.TIMBER HAND Work Phone: [facility] 08-27-2022 10:13-0500 Body temperature 96.69 [degF] Elliott Mahajan MD Work Phone: [facility] 08-27-2022 10:13-0500 Body weight 123.38 kg Elliott Mahajan MD Work Phone: [facility] 08-27-2022 10:13-0500 Diastolic blood pressure 60 mm[Hg] Elliott Mahajan MD Work Phone: [facility] 08-27-2022 10:13-0500 Heart rate 97 /min Elliott Mahajan MD Work Phone: [facility] 08-27-2022 10:13-0500 Respiratory rate 18 /min Elliott Mahajan MD Work Phone: [facility] 08-27-2022 10:13-0500 SaO2% (BldA) [Mass fraction] 97 % Elliott Mahajan MD Work Phone: [facility] 08-27-2022 10:13-0500 Systolic blood pressure 112 mm[Hg] Elliott Mahajan MD Work Phone: [facility] 08-17-2022 12:52-0500 Body temperature 96.01 [degF] Claire Mendiola TRANSPORTATION ASSISTANT.TIMBER HAND Work Phone: [facility] 08-17-2022 12:52-0500 Body weight 123.74 kg Claire Mendiola TRANSPORTATION ASSISTANT.TIMBER HAND Work Phone: [facility] 08-17-2022 12:52-0500 Diastolic blood pressure 100 mm[Hg] Claire Mendiola TRANSPORTATION ASSISTANT.TIMBER HAND Work Phone: [facility] 08-17-2022 12:52-0500 Heart rate 105 /min Claire Mendiola TRANSPORTATION ASSISTANT.TIMBER HAND Work Phone: [facility] 08-17-2022 12:52-0500 Respiratory rate 21 /min Claire Mendiola TRANSPORTATION ASSISTANT.TIMBER HAND Work Phone: [facility] 08-17-2022 12:52-0500 SaO2% (BldA) [Mass fraction] 98 % Claire Mendiola TRANSPORTATION ASSISTANT.TIMBER HAND Work Phone: [facility] 08-17-2022 12:52-0500 Systolic blood pressure 138 mm[Hg] Claire Mendiola TRANSPORTATION ASSISTANT.TIMBER HAND Work Phone: [facility] 05-17-2022 11:32-0400 Body weight 117.48 kg Americo Khan TRANSPORTATION ASSISTANT.SUPERVISOR [employer] Work Phone: [facility] 05-17-2022 11:32-0400 Diastolic blood pressure 79 mm[Hg] Americo Khan TRANSPORTATION ASSISTANT.SUPERVISOR [employer] Work Phone: [facility] 05-17-2022 11:32-0400 Heart rate 89 /min Americo Khan TRANSPORTATION ASSISTANT.SUPERVISOR [employer] Work Phone: [facility] 05-17-2022 11:32-0400 SaO2% (BldA) [Mass fraction] 97 % Americo Khan TRANSPORTATION ASSISTANT.SUPERVISOR [employer] Work Phone: [facility] 05-17-2022 11:32-0400 Systolic blood pressure 131 mm[Hg] Americo Khan TRANSPORTATION ASSISTANT.SUPERVISOR [employer] Work Phone: [facility] 01-17-2022 10:06-0400 Body weight 117.94 kg Quiana Del Castillo DO Work Phone: [facility] 01-17-2022 10:06-0400 Diastolic blood pressure 86 mm[Hg] Quiana Del Castillo DO Work Phone: [facility] 01-17-2022 10:06-0400 Heart rate 94 /min Quiana Del Castillo DO Work Phone: [facility] 01-17-2022 10:06-0400 Systolic blood pressure 137 mm[Hg] Quiana Del Castillo DO Work Phone: [facility] 11-14-2021 09:40-0400 Body weight 117.94 kg Elliott Mahajan MD Work Phone: [facility] 11-14-2021 09:40-0400 Diastolic blood pressure 82 mm[Hg] Elliott Mahajan MD Work Phone: [facility] 11-14-2021 09:40-0400 Heart rate 84 /min Elliott Mahajan MD Work Phone: [facility] 11-14-2021 09:40-0400 SaO2% (BldA) [Mass fraction] 95 % Elliott Mahajan MD Work Phone: [facility] 11-14-2021 09:40-0400 Systolic blood pressure 112 mm[Hg] Elliott Mahajan MD Work Phone: [facility] 07-13-2021 22:04-0500 Body temperature 98.96 [degF] DR NANCY MCPHERSON MD [facility] 07-13-2021 22:04-0500 Body weight 118.[address] NANCY MCPHERSON MD [facility] 07-13-2021 22:04-0500 Diastolic blood pressure 70 mm[Hg] DR NANCY MCPHERSON MD [facility] 07-13-2021 22:04-0500 Heart rate 96 /min DR NANCY MCPHERSON MD [facility] 07-13-2021 22:04-0500 Respiratory rate 20 /min DR NANCY MCPHERSON MD [facility] 07-13-2021 22:04-0500 Systolic blood pressure 145 mm[Hg] DR NANCY MCPHERSON MD [facility] Encounters Encounter Date Encounter Type Care Provider Facility Start: 06-02-2024 End: 06-02-2024 Telephone encounter Quiana Dee Del Castillo DO Work Phone: Neurology Comment on above: Insurance Authorizat ion; Ajbriana/Caresobenny/Cecilio Medication Question Start: 05-31-2024 End: 06-01-2024 Refill Pastora Glynn APRN.CNP Work Phone: Neurology Comment on above: Refill Request Start: 05-29-2024 End: 05-31-2024 Refill Surendra Griggs MD Work Phone: Orthopaedics Comment on above: Refill Request Start: 05-28-2024 End: 06-02-2024 Telephone encounter Elliott Mahajan MD Work Phone: Internal Medicine [place] Comment on above: update on right ankl e sprain Start: 05-27-2024 End: 05-27-2024 ambulatory [facility] Facility:[facility] Start: 05-27-2024 End: 05-27-2024 Subsequent hospital visit by physician [facility] Work Phone: Radiology Comment on above: Elevated alkaline ph osphatase level [R74.8] Start: 05-26-2024 End: 05-26-2024 Telephone encounter Elliott Mahajan MD Work Phone: Internal Medicine [place] Comment on above: Left hand ring finge r injury Start: 05-26-2024 End: 05-26-2024 Patient encounter procedure Trinh Wayne APRN.CNP Work Phone: Internal Medicine [place] Comment on above: Fall, initial encoun ter (Primary Dx); Edema, unspecified type; Finger pain, left Start: 05-26-2024 End: 05-26-2024 ambulatory [facility] Facility:[facility] Start: 05-26-2024 End: 05-26-2024 Subsequent hospital visit by physician Liya [facility] [place] Work Phone: Radiology Comment on above: Fall, initial encoun ter [W19.XXXA] Start: 05-21-2024 End: 05-21-2024 [facility] Facility:[facility] Start: 05-19-2024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 06-09-2023 tetanus toxoid, redu janet diphtheria toxoid, and acellular pertussis vaccine, adsorbed [employer] Work Phone: [facility] 05-05-2018 influenza virus vaccine, unspecified formulation Yamileth JobHorecatovitz PA-[employer] Work Phone: [facility] 02-27-2004 diphtheria and tetan us toxoids, adsorbed for pediatric use Yamileth Vetovitz PA-C Work Phone: [facility] Work Phone: Payers Date Payer Category Payer Medicaid [id number] 2022 Medicaid [id number] 2018 Medicaid [facility] MEDICAID [id number] 2018-Present [phone] [address] [place] [address] Medicaid [id number] 2018 Medicaid [id number] 1970 Unknown [id number] 1970 Unknown [id number] 1970 Unknown [id number] 1970 Unknown [id number] Social History Date Type Detail Facility Start: 09-18-2020 Light tobacco smoker (finding) [facility] Sex Assigned At [facility] Start: 06-27-2015 End: 04-21-2024 Tobacco smoking status NHIS Smokes tobacco daily [facility] Work Phone: Start: 12-09-2021 History of tobacco use Cigar Smoker [facility] Work Phone: Start: 06-27-2015 End: 04-21-2024 Tobacco use and exposure Smokeless tobacco non-user [facility] Work Phone: Start: 10-14-2021 End: 04-22-2024 Alcohol intake Current drinker of alcohol (finding) [facility] Start: 05-02-2021 End: 12-17-2022 History SDOH Alcohol Frequency 3 [facility] Start: 05-02-2021 End: 05-16-2022 History SDOH Alcohol Std Drinks 1 [facility] Start: 03-31-2010 History SDOH Alcohol Comment once a month [facility] Start: 05-02-2021 End: 12-17-2022 History SDOH Social Connections Phone 5 [facility] Start: 05-02-2021 End: 12-17-2022 History SDOH Social Connections Membership 2 [facility] Start: 05-02-2021 End: 12-17-2022 History SDOH Financial 4 [facility] Start: 05-02-2021 Education 12 [facility] Start: 05-02-2021 End: 05-17-2022 Tobacco Comment smokes 4 Clove cigars daily. 04/2026 [facility] Start: 1970 Sex Assigned At Female [facility] Start: 01-07-2021 End: 05-17-2022 Exposure to SARS-CoV-2 (event) Not sure [facility] Start: 05-17-2022 End: 05-09-2023 Tobacco smoking status NHIS Ex-smoker [facility] Start: 12-09-2021 History of tobacco use Current smoker [facility] Start: 05-16-2022 History SDOH Social Connections Hinduism 98 [facility] Start: 09-02-2022 Tobacco Comment smokes 4 Clove cigars daily. [facility] Start: 12-14-2022 End: 12-17-2022 History of Social function [facility] Start: 12-14-2022 End: 12-17-2022 Social connection and isolation panel [facility] Do you belong to any clubs or organizations such as rastafari groups, unions, fraternal or athletic groups, or school groups? No [facility] Are you now , , , , never or living with a partner? [facility] How often to you hav e a drink containing alcohol? 2-4 times a month [facility] How many standard dr inks containing alcohol do you have on a typical day? 1 or 2 [facility] How often do you hav e 6 or more drinks on 1 occasion? Never [facility] How hard is it for y ou to pay for the very basics like food, housing, medical care, and heating Not hard at all [facility] Do you feel stress - tense, restless, nervous, or anxious, or unable to sleep at night because your mind is troubled all the time - these days [OSQ] To some extent [facility] (I/We) worried wheth er (my/our) food would run out before (I/we) got money to buy more. Never true [facility] Start: 10-10-2018 Gender identity Identifies as female gender (finding) [facility] Start: 08-18-2020 Sexual orientation Heterosexual (finding) [facility] How often to you hav e a drink containing alcohol? 2-3 time sa week [facility] How hard is it for y ou to pay for the very basics like food, housing, medical care, and heating Not very hard [facility] Do you feel stress - tense, restless, nervous, or anxious, or unable to sleep at night because your mind is troubled all the time - these days [OSQ] Only a little [facility] Start: 12-20-2019 Tobacco Comment smokes 4-6 Clove cigars daily. Down to 3 to 4 today usually (12/20/2019) [facility] Functional Status Date Assessment Result Facility 04-05-2024 Functional Status Independent [facility] 04-05-2024 Functional Status Ambulation in Room [facility] 04-03-2024 Functional Status Assistive Device None A [facility] 04-03-2024 Functional Status Standard Safet y ID band on, Allergy Band on, Call device within reach, Bed in low position, Wheels locked, Upper/Half-Length side-rails up, personal items within reach, Bedside Cart Locked, Visitor at bedside [facility] 05-03-2023 Functional Status Standard Safety ID band on [facility] 05-03-2023 Functional Status [facility] 05-03-2023 Functional Status [facility] Mental Status Date Assessment Result Facility 04-05-2024 Mental Status Orientation Oriented x 4 [facility] 04-05-2024 Mental Status [facility] 04-03-2024 Mental Status Orientation Oriented x 4 [facility] 04-03-2024 Mental Status [facility] 05-03-2023 Mental Status Orientation Oriented x 4 [facility] Clinical Notes 05-12-2013 to 06-02-2024 Addendum Note - Molly Jacinto APRN.TIMBER HAND - 06/02/2024 3:19 PM EDTAddendum Note - Molly Jacinto APRN.CNP - 06/02/2024 3:19 PM EDTTelephone Encounter - More Daly - 06/01/2024 8:11 AM EDT Note Date & Type Note Facility 06-02-2024 Note Addended by: MOLLY OROZCO on: 06/02/2024 03:19 PM Modules accepted: Orders [facility] 06-02-2024 Miscellaneous Notes Addended by: MOLLY JACINTO on: 06/02/2024 03:19 PM Modules accepted: Orders Please have her hold her etodolac while taking toradol. The following approved medication requests have been transmitted electronically. Requested Prescriptions Signed Prescriptions Disp Refills keTORolac (TORADOL) 10 mg tablet 15 tablet 0 Sig: Take 1 tablet by mouth three times a day for 5 days. Authorizing Provider: MOLLY JACINTO APRN.TIMBER HAND Called and spoke with patient: Typical migraines. Pain in temples and wraps to back of head. States bumps on back of head are swollen- confirmed this usually happens with her severe migraines. 7-9/10 pain. All typical symptoms, just much worse. Pt has thrown up 5x today and is constantly nauseous. Toradol did work in the past- patient would like to try that again. Please send to [facility] Mely Jorgensen RN She's had toradol in the past. Does this help? Is this her usual headache? Molly Jacinto APRN.CNP June 02, 2024 1:14 PM Patient called in again to see if any other medication be called in for her to break up this current headache cycle she has been stuck in for 4 days. 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 Patient is hoping something can be sent in today since we are currently waiting for determination for Ajovy. Preferred pharmacy: [id number] [place] [address] - [address] - [phone] Call back #: [phone] Okay to [facility]. documented in this encounter [facility] 06-02-2024 Telephone encounter Note Please have her hold her etodolac while taking toradol. The following approved medication requests have been transmitted electronically. Requested Prescriptions Signed Prescriptions Disp Refills keTORolac (TORADOL) 10 mg tablet 15 tablet 0 Sig: Take 1 tablet by mouth three times a day for 5 days. Authorizing Provider: MOLLY JACINTO APRN.TIMBER HAND [facility] 06-02-2024 Telephone encounter Note Called and spoke with patient: Typical migraines. Pain in temples and wraps to back of head. States bumps on back of head are swollen- confirmed this usually happens with her severe migraines. 7-9/10 pain. All typical symptoms, just much worse. Pt has thrown up 5x today and is constantly nauseous. Toradol did work in the past- patient would like to try that again. Please send to [facility] in [place] Mely Jorgensen RN [facility] 06-02-2024 Telephone encounter Note PATIENT NOTIFIED OF SAME. [facility] 06-02-2024 Miscellaneous Notes PATIENT NOTIFIED OF SAME. Short term tramadol and diflucan sent. Please advise her to follow up if issues/symptoms persist. In addition to message below please review this also. Pt requesting medication for a yeast infection x 3 day. Completed a natural T for a boil she had. Pt requesting Diflucan. Please advise pt. Syeda Barrett LPN Pt called and is notified of providers message and instructions. Pt voices understanding. She states she has one of the slip on Velcro ankle braces you can get at any local store. Pt denies having a walking boot or gel cast. Pt was asking if provider would send in some more Ultram, she states Americo Khan had sent some in for her. I told her it wouldn't be until Friday until someone would look at this. Pt reports she doesn't have much pain when sitting 2/10, but when walking 7/10 throbbing/aching and shoots sharp pain up her leg. She said she is doing PT on the ankle now and it is helping, so she doesn't think she needs the podiatry consult. Radha Moore, RN Can refer to watch supervisor. Does she have a walking boot or gel cast? What kind of ankle brace? Pt called to report her right ankle which she had an injury 4 weeks ago and was told this was a sprain. Pt has been elevating, icing and putting voltaren gel on this. Pt reports she does have an ankle brace that she will try to see if this helps when she walks. The area is swollen pain level 7. Bruising appear recently. Pt asking if there is anything else she can do. Pt has been limping around on this. Please advise pt. Syeda Barrett LPN documented in this encounter [facility] 06-02-2024 Telephone encounter Note She's had toradol in the past. Does this help? Is this her usual headache? Molly Jacinto APRN.CNP June 02, 2024 1:14 PM [facility] 06-02-2024 Telephone encounter Note Short term tramadol and diflucan sent. Please advise her to follow up if issues/symptoms persist. [facility] 06-02-2024 Telephone encounter Note Patient called in again to see if any other medication be called in for her to break up this current headache cycle she has been stuck in for 4 days. 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 Patient is hoping something can be sent in today since we are currently waiting for determination for Ajmanuely. Preferred pharmacy: [id number] [place] [address] - [address] [facility] [phone] Call back #: [phone] Okay to [facility]. [facility] 06-02-2024 Telephone encounter Note Completed over CMM: If [employer] has not replied to your request within 24 hours please contact [employer] at (TTY SKY ZAMUDIO (Felix: [id number]) [place] Drug AJOVY (fremanezumab-vfrm) injection 225MG/1.5ML auto-injectors ePA cloud logo Form [place] Medicaid [employer] Electronic PA Form (2016 NCPDP) Deja Vaughn MA [facility] 06-02-2024 Miscellaneous Notes Completed over CMM: If [facility] has not replied to your request within 24 hours please contact [facility] Services at (TTY SKY ZAMUDIO (Felix: [id number]) NEO Drug AJOVY (fremanezumab-vfrm) injection 225MG/1.5ML auto-injectors ePA cloud logo Form [place] Medicaid [employer] Electronic PA Form (2016PDP) Deja Vaughn MA documented in this encounter [facility] 06-02-2024 Telephone encounter Note In addition to message below please review this also. Pt requesting medication for a yeast infection x 3 day. Completed a natural T for a boil she had. Pt requesting Diflucan. Please advise pt. Syeda Barrett LPN [facility] 06-01-2024 Telephone encounter Note The following approved medication requests have been transmitted electronically. Requested Prescriptions Signed Prescriptions Disp Refills acetaminophen 325 mg-caffeine 40 mg-butalbital 50 mg (FIORICET) per tablet 20 tablet 0 Sig: TAKE 1 TABLET BY MOUTH EVERY 6 HOURS NEEDED FOR HEADACHE. NO MORE THAN 5 DAYS PER MONTH Authorizing Provider: CONSTANCE LARSON naratriptan (AMERGE) 2.5 mg tablet 9 tablet 2 Sig: Take 1 tablet (2.5 mg) by mouth as needed. TAKE 1 TABLET BY MOUTH AT ONSET OF MIGRAINE AND MAY REPEAT ONCE IN 4 HOURS IF NEEDED Authorizing Provider: CONSTANCE LARSON PA-C PDM website checked and validated. All prescriptions have been APPROPRIATELY filled. No suspicious activity was identified. 06/01/2024 by MELANIE Rogers PA-C June 01, 2024 10:05 AM [facility] 06-01-2024 Miscellaneous Notes The following approved medication requests have been transmitted electronically. Requested Prescriptions Signed Prescriptions Disp Refills acetaminophen 325 mg-caffeine 40 mg-butalbital 50 mg (FIORICET) per tablet 20 tablet 0 Sig: TAKE 1 TABLET BY MOUTH EVERY 6 HOURS NEEDED FOR HEADACHE. NO MORE THAN 5 DAYS PER MONTH Authorizing Provider: CONSTANCE LARSON naratriptan (AMERGE) 2.5 mg tablet 9 tablet 2 Sig: Take 1 tablet (2.5 mg) by mouth as needed. TAKE 1 TABLET BY MOUTH AT ONSET OF MIGRAINE AND MAY REPEAT ONCE IN 4 HOURS IF NEEDED Authorizing Provider: CONSTANCE LARSON PA-C [facility] website checked and validated. All prescriptions have been APPROPRIATELY filled. No suspicious activity was identified. 06/01/2024 by MELANIE Rogers PA-C June 01, 2024 10:05 AM Physician: Jose Call from patient requesting refill. Please E-Scribe Last office visit 01/19/24 with Jose castro Next office visit 07/26/24 with Jose virtual Requested Prescriptions Pending Prescriptions Disp Refills acetaminophen 325 mg-caffeine 40 mg-butalbital 50 mg (FIORICET) per tablet [Pharmacy Med Name: [id number] 50-325-40] 60 tablet Sig: TAKE 1 TABLET BY MOUTH EVERY 6 HOURS NEEDED FOR HEADACHE. NO MORE THAN 5 DAYS PER MONTH naratriptan (AMERGE) 2.5 mg tablet [Pharmacy Med Name: NARATRIPTAN HCL 2.5 MG TABLET] 9 tablet 2 Sig: TAKE 1 TABLET BY MOUTH AT ONSET OF MIGRAINE AND MAY REPEAT ONCE IN 2 HOURS IF NEEDED Pharmacy Name: [facility] Addy documented in this encounter [facility] 06-01-2024 Telephone encounter Note Physician: Jose Call from patient requesting refill. Please E-Scribe Last office visit 01/19/24 with Jose virtual Next office visit 07/26/24 with Jose castro Requested Prescriptions Pending Prescriptions Disp Refills acetaminophen 325 mg-caffeine 40 mg-butalbital 50 mg (FIORICET) per tablet [Pharmacy Med Name: [id number] 50-325-40] 60 tablet Sig: TAKE 1 TABLET BY MOUTH EVERY 6 HOURS NEEDED FOR HEADACHE. NO MORE THAN 5 DAYS PER MONTH naratriptan (AMERGE) 2.5 mg tablet [Pharmacy Med Name: NARATRIPTAN HCL 2.5 MG TABLET] 9 tablet 2 Sig: TAKE 1 TABLET BY MOUTH AT ONSET OF MIGRAINE AND MAY REPEAT ONCE IN 2 HOURS IF NEEDED Pharmacy Name: [facility] 05-29-2024 Telephone encounter Note Pt called and is notified of providers message and instructions. Pt voices understanding. She states she has one of the slip on Velcro ankle braces you can get at any local store. Pt denies having a walking boot or gel cast. Pt was asking if provider would send in some more Ultram, she states Americo Khan had sent some in for her. I told her it wouldn't be until Friday until someone would look at this. Pt reports she doesn't have much pain when sitting 2/10, but when walking 7/10 throbbing/aching and shoots sharp pain up her leg. She said she is doing PT on the ankle now and it is helping, so she doesn't think she needs the podiatry consult. Radha Babulski, RN T [facility] 05-28-2024 Telephone encounter Note Can refer to watch supervisor. Does she have a walking boot or gel cast? What kind of ankle brace? [facility] 05-28-2024 Telephone encounter Note Pt called to report her right ankle which she had an injury 4 weeks ago and was told this was a sprain. Pt has been elevating, icing and putting voltaren gel on this. Pt reports she does have an ankle brace that she will try to see if this helps when she walks. The area is swollen pain level 7. Bruising appear recently. Pt asking if there is anything else she can do. Pt has been limping around on this. Please advise pt. Syeda Barrett LPN [facility] 05-27-2024 Note HNO ID: [id number] Author: CLAIRE RODRIGUEZ RDMS Service: ? Author Type: [employer] Type: Progress Notes Filed: 05/28/2024 07:36 Note Text: Radiology Service Progress Note PATIENT NAME: Sky Zamudio DATE OF SERVICE: May 28, 2024 TIME: 7:36 AM PATIENT IDENTITY VERIFICATION COMPLETED USING TWO (2) IDENTIFIERS: Name and Date of confirmed by patient verbally. FALL SCREENING: Has the patient had 2 falls in the last year or 1 fall with injury or currently using an Ambulatory Assistive Device (Walker, Cane, Wheelchair, Crutches, etc.)? No PATIENT GENDER DATA: Female. status: : No status: NO. PATIENT RELEVANT IMPLANT DATA REVIEWED: Not Applicable PATIENT PRESENTS WITH AN IMPLANTABLE OR ATTACHED TOWNSHIP CLERK: No RADIOLOGY DEPARTMENT: Ultrasound PERIPHERAL IV DATA: Not applicable SIGNED BY: Claire Rodriguez RDMS [facility] May 28, 2024 7:36 AM [facility] 05-26-2024 History of Present illness Narrative Radiology Service Progress Note PATIENT NAME: Sky Zamudio DATE OF SERVICE: May 26, 2024 TIME: 10:43 AM PATIENT IDENTITY VERIFICATION COMPLETED USING TWO (2) IDENTIFIERS: Name and Date of confirmed by patient verbally. FALL SCREENING: Has the patient had 2 falls in the last year or 1 fall with injury or currently using an Ambulatory Assistive Device (Walker, Cane, Wheelchair, Crutches, etc.)? No PATIENT GENDER DATA: Female. status: : No status: NO. PATIENT RELEVANT IMPLANT DATA REVIEWED: Yes PATIENT PRESENTS WITH AN IMPLANTABLE OR ATTACHED TOWNSHIP CLERK: No RADIOLOGY DEPARTMENT: General X-ray: Exam(s) Completed: Upper Extremity X-Ray(s): Fingers/Thumb, left PERIPHERAL IV DATA: Not applicable SIGNED BY: STEPAN Cardenas) May 26, 2024 10:43 AM documented in this encounter [facility] 05-26-2024 Note HNO ID: [id number] Author: THERESE FRAGA RT (R) Service: Radiology Author Type: Technologist Type: Progress Notes Filed: 05/26/2024 10:50 Note Text: Radiology Service Progress Note PATIENT NAME: Sky Zamudio DATE OF SERVICE: May 26, 2024 TIME: 10:43 AM PATIENT IDENTITY VERIFICATION COMPLETED USING TWO (2) IDENTIFIERS: Name and Date of confirmed by patient verbally. FALL SCREENING: Has the patient had 2 falls in the last year or 1 fall with injury or currently using an Ambulatory Assistive Device (Walker, Cane, Wheelchair, Crutches, etc.)? No PATIENT GENDER DATA: Female. status: : No status: NO. PATIENT RELEVANT IMPLANT DATA REVIEWED: Yes PATIENT PRESENTS WITH AN IMPLANTABLE OR ATTACHED TOWNSHIP CLERK: No RADIOLOGY DEPARTMENT: General X-ray: Exam(s) Completed: Upper Extremity X-Ray(s): Fingers/Thumb, left PERIPHERAL IV DATA: Not applicable SIGNED BY: STEPAN Cardenas) May 26, 2024 10:43 AM [facility] 05-26-2024 Note HNO ID: [id number] Author: TRINH WAYNE APRN.TIMBER HAND Service: ? Author Type: Nurse Practitioner Type: Progress Notes Filed: 05/26/2024 10:38 Note Text: CC: Patient presents with: Finger Pain: L ring finger pain HPI Sky Zamudio is a 54 year old female who presents today for left ring finger injury. Feel forward down 4 steps yesterday placing left hand down after it caught on door jam bending left ring finger backwards then went back into place. Did not hit her head, lose consciousness, no other identified injury or new pain outside to finger. Pain to left 4th digit was immediate pain with swelling, and bruising. Has been icing since accident and feels the bruising has resolved. Has decreased flexion of finger and pain worsens with the use. Denies any loss of sensation. Previous sprain to left finger 3 months ago but no other injury or fracture. REVIEW OF SYSTEMS See HPI PAST MEDICAL HISTORY Diagnosis Date Abdominal pain, periumbilic Acute gastritis without mention of hemorrhage Atrophic vaginitis 07/14/2018 Bipolar disorder, unspecified (HCC) Chronic rhinitis Closed fracture of navicular (scaphoid) bone of foot 12/10/2011 Contact dermatitis and other eczema, due to unspecified cause Diaphragmatic hernia without mention of obstruction or gangrene Dysmenorrhea decreased Esophageal reflux Excessive or frequent menstruation Heavy periods resolved Irregular menstrual cycle Irregular periods Migraine headache Obesity, unspecified Other specified gastritis SLEEP APNEA NOS 12/12/200708: effic 87%, no stage III, AHI 5.5, REM 20.9, supine 3, snoring 98%-rec CPAP trial Stress incontinence Unspecified asthma(493.90) Unspecified symptom associated with female genital organs PAST SURGICAL HISTORY Procedure Laterality Date ADENOIDECTOMY PRIMARY Adenoidectomy ANESTHESIA HERNIA REPAIR LOWER ABDOMEN NOS 01/31/2005 DELIVERY ONLY x 3 , low cervical CHOLECYSTECTOMY 03/05/2006 Cholecystectomy COLONOSCOPY 12/18/2022 COLONOSCOPY FLX DX W/COLLJ SPEC WHEN PFRMD 03/13/2005 Colonoscopy COLONOSCOPY FLX DX W/COLLJ SPEC WHEN PFRMD 04/28/2018 Colonoscopy COLSC FLX W/RMVL OF TUMOR POLYP LESION SNARE TQ 04/02/2016 ?mild colitis, tubular adenoma in rectal polyp - 5 year follow up EGD 12/18/2022 EGD TRANSORAL BIOPSY SINGLE/MULTIPLE 04/04/2010 mild gastritis ESOPHAGOGASTRODUODENOSCOPY TRANSORAL DIAGNOSTIC 03/13/2005 EGD ESOPHAGOGASTRODUODENOSCOPY TRANSORAL DIAGNOSTIC 09/14/2019 EGD HYSTERECTOMY HX 05/02/2015 with repair of incidental cystotomy HYSTEROSCOPY, DIAGNOSTIC (SEPARATE 06/21/2010 hysteroscopy DANDC, Novasure LIG/TRNSXJ FLP TUBE ABDL/VAG APPR UNI/BI Tubal ligation NEUROPLASTY AND/TRANSPOS MEDIAN NRV CARPAL TUNNE 06/04/2007 Carpal tunnel decomp right PAST SURGICAL HISTORY OF Abd hernia and mesh placement REPAIR INCISIONAL HERNIA 04/02/2005 with mesh - 3cm infraumbilical - 5cm below umbilicus- medium ventralex mesh SLING OPER STRES INCONTINENCE 05/02/2015 TONSILLECTOMY PRIMARY/SECONDARY Tonsillectomy ALLERGIES Bactrim [Sulfamethoxazole-Trimethoprim], Bees, Floxin [Ofloxacin], Ivp Dye [Iodine], Keflex [Cephalexin], Mangoes, Smoke, Topamax [Topiramate], Ultram [Tramadol Hcl], and Cefdinir MEDICATIONS fremanezumab-vfrm (AJOVY AUTOINJECTOR) 225 mg/1.5 mL auto-injector Inject 1.5 mL subcutaneously once every month. etodolac (LODINE) 300 mg capsule Take 1 capsule by mouth every 8 hours. ondansetron orally disintegrating (ZOFRAN ODT) 4 mg disintegrating tablet Take 0.5-1 tablets by mouth every 6 hours as needed for nausea/vomiting. promethazine (PHENERGAN) 25 mg tablet Take 1 tablet by mouth every 6 hours as needed for nausea/vomiting. triamcinolone acetonide (NASACORT AQ) 55 mcg nasal inhaler Use 2 Sprays in the nose once daily as needed. EPINEPHrine (EPIPEN) 0.3 mg/0.3 mL auto-injector Inject subcutaneously. use as directed if needed after insect bite cyclobenzaprine (FLEXERIL) 10 mg tablet Take 1 tablet by mouth three times a day as needed. zolpidem (AMBIEN) 10 mg Take 1 tablet by mouth daily at bedtime for 180 days. carBAMazepine XR (TEGRETOL XR) 100 mg 12 hr tablet take 1 tablet by mouth twice a day COMBINED WITH THE 200 MG DOSE carBAMazepine XR (TEGRETOL XR) 200 mg 12 hr tablet take 1 tablet by mouth twice a day COMBINED WITH THE 100 MG DOSE montelukast (SINGULAIR) 10 mg tablet Take 1 tablet by mouth daily at bedtime. methylPREDNISolone (MEDROL, ANDRÉS,) 4 mg Dose-Pack Take as instructed on packaging. acetaminophen 325 mg-caffeine 40 mg-butalbital 50 mg (FIORICET) per tablet Take 1 tablet by mouth every 6 hours if needed for headache. No more than 5 days per month. naratriptan (AMERGE) 2.5 mg tablet Take 1 tab at migraine onset. May repeat once in 2 hours if needed. albuterol HFA (VENTOLIN HFA) 90 mcg/actuation inhaler Inhale 2 Puffs as instructed every 4 hours as needed. Cholecalcifero (more content not included)... [facility] 05-26-2024 History of Present illness Narrative CC: Patient presents with: Finger Pain: L ring finger pain HPI Sky Zamudio is a 54 year old female who presents today for left ring finger injury. Feel forward down 4 steps yesterday placing left hand down after it caught on door jam bending left ring finger backwards then went back into place. Did not hit her head, lose consciousness, no other identified injury or new pain outside to finger. Pain to left 4th digit was immediate pain with swelling, and bruising. Has been icing since accident and feels the bruising has resolved. Has decreased flexion of finger and pain worsens with the use. Denies any loss of sensation. Previous sprain to left finger 3 months ago but no other injury or fracture. REVIEW OF SYSTEMS See HPI PAST MEDICAL HISTORY Diagnosis Date Abdominal pain, periumbilic Acute gastritis without mention of hemorrhage Atrophic vaginitis 07/14/2018 Bipolar disorder, unspecified (HCC) Chronic rhinitis Closed fracture of navicular (scaphoid) bone of foot 12/10/2011 Contact dermatitis and other eczema, due to unspecified cause Diaphragmatic hernia without mention of obstruction or gangrene Dysmenorrhea decreased Esophageal reflux Excessive or frequent menstruation Heavy periods resolved Irregular menstrual cycle Irregular periods Migraine headache Obesity, unspecified Other specified gastritis SLEEP APNEA NOS 12/12/2007 12-03-07: effic 87%, no stage III, AHI 5.5, REM 20.9, supine 3, snoring 98%-rec CPAP trial Stress incontinence Unspecified asthma(493.90) Unspecified symptom associated with female genital organs PAST SURGICAL HISTORY Procedure Laterality Date ADENOIDECTOMY PRIMARY <AGE 12 Adenoidectomy ANESTHESIA HERNIA REPAIR LOWER ABDOMEN NOS 01/31/2005 DELIVERY ONLY x 3 , low cervical CHOLECYSTECTOMY 03/05/2006 Cholecystectomy COLONOSCOPY 12/18/2022 COLONOSCOPY FLX DX W/COLLJ SPEC WHEN PFRMD 03/13/2005 Colonoscopy COLONOSCOPY FLX DX W/COLLJ SPEC WHEN PFRMD 04/28/2018 Colonoscopy COLSC FLX W/RMVL OF TUMOR POLYP LESION SNARE TQ 04/02/2016 ?mild colitis, tubular adenoma in rectal polyp - 5 year follow up EGD 12/18/2022 EGD TRANSORAL BIOPSY SINGLE/MULTIPLE 04/04/2010 mild gastritis ESOPHAGOGASTRODUODENOSCOPY TRANSORAL DIAGNOSTIC 03/13/2005 EGD ESOPHAGOGASTRODUODENOSCOPY TRANSORAL DIAGNOSTIC 09/14/2019 EGD HYSTERECTOMY HX 05/02/2015 with repair of incidental cystotomy HYSTEROSCOPY, DIAGNOSTIC (SEPARATE 06/21/2010 hysteroscopy D&C, Novasure LIG/TRNSXJ FLP TUBE ABDL/VAG APPR UNI/BI Tubal ligation NEUROPLASTY &/TRANSPOS MEDIAN NRV CARPAL TUNNE 06/04/2007 Carpal tunnel decomp right PAST SURGICAL HISTORY OF Abd hernia and mesh placement REPAIR INCISIONAL HERNIA 04/02/2005 with mesh - 3cm infraumbilical - 5cm below umbilicus- medium ventralex mesh 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 etodolac (LODINE) 300 mg capsule Take 1 capsule by mouth every 8 hours. ondansetron orally disintegrating (ZOFRAN ODT) 4 mg disintegrating tablet Take 0.5-1 tablets by mouth every 6 hours as needed for nausea/vomiting. promethazine (PHENERGAN) 25 mg tablet Take 1 tablet by mouth every 6 hours as needed for nausea/vomiting. triamcinolone acetonide (NASACORT AQ) 55 mcg nasal inhaler Use 2 Sprays in the nose once daily as needed. EPINEPHrine (EPIPEN) 0.3 mg/0.3 mL auto-injector Inject subcutaneously. use as directed if needed after insect bite cyclobenzaprine (FLEXERIL) 10 mg tablet Take 1 tablet by mouth three times a day as needed. zolpidem (AMBIEN) 10 mg Take 1 tablet by mouth daily at bedtime for 180 days. carBAMazepine XR (TEGRETOL XR) 100 mg 12 hr tablet take 1 tablet by mouth twice a day COMBINED WITH THE 200 MG DOSE carBAMazepine XR (TEGRETOL XR) 200 mg 12 hr tablet take 1 tablet by mouth twice a day COMBINED WITH THE 100 MG DOSE montelukast (SINGULAIR) 10 mg tablet Take 1 tablet by mouth daily at bedtime. methylPREDNISolone (MEDROL, ANDRÉS,) 4 mg Dose-Pack Take as instructed on packaging. acetaminophen 325 mg-caffeine 40 mg-butalbital 50 mg (FIORICET) per tablet Take 1 tablet by mouth every 6 hours if needed for headache. No more than 5 days per month. naratriptan (AMERGE) 2.5 mg tablet Take 1 tab at migraine onset. May repeat once in 2 hours if needed. albuterol HFA (VENTOLIN HFA) 90 mcg/actuation inhaler Inhale 2 Puffs as instructed every 4 hours as needed. Cholecalciferol, Vitamin D3, 50 mcg (2,000 unit) cap Take 2 capsules by mouth once daily. lansoprazole (PREVACID) 30 mg capsule Take 1 capsule by mouth two times a day. dzfrmuqy-omqbnfhmg-tvvdffnsesixvr (CORTISPORIN) otic solution Use 3 Drops in the ears four times daily. As directed diclofenac (VOLTAREN) 1 % topical gel apply topically to affected area as directed if needed loratadine-pseudoephedrine ER (LORATA-D) 10-240 mg Tb24 Take 1 tablet by mouth once daily. Lactobacillus acidophilus (FLORAJEN ACIDOPHILUS) 20 billion cell capsule Take 1 capsule by mouth once daily. CPAP/BIPAP/OTHER Type .CPAPSettings into a note to see current settings/supplies/DME information. ipratropium 20 mcg-albuterol 100 mcg (COMBIVENT RESPIMAT) 20-100 mcg/actuation inhaler Inhale 1 Puff as instructed four times daily as needed for wheezing/shortness of breath. meclizine (ANTIVERT) 25 mg tab take 1/2 to 1 tablet by mouth every 6 hours if needed for dizziness multivitamin (TAB-A-JESSICA) tablet Take 1 tablet by mouth once daily. bisacodyl EC (DULCOLAX, BISACODYL,) 5 mg EC tablet Take 1 tablet by mouth once daily as needed for constipation. polyethylene glycol 3350 17 gram/dose powder Take 17 g by mouth once daily. Dissolve dose in 4 - 8 ounces of liquid and take as directed. Benzonatate 200 mg capsule Take 1 capsule by mouth three times daily as needed. terconazole (TERAZOL 7) 0.4 % vaginal cream Use 1 Applicator vaginally daily at bedtime. estrogens conjugated (PREMARIN) 0.3 mg tablet Take 0.3 mg by mouth. Taking 3 times per week. Prescribed by outside OB. hydroCHLOROthiazide (HYDRODIURIL, ESIDRIX) 25 mg tablet Take 1 tablet by mouth once daily as needed (fluid retention). FAMILY HISTORY Problem Relation Age of Onset other (bipolar) Mother Arthritis Mother other (den disc disease) Father Dementia Father other (bipolar) Brother asthma other (crohns) Brother other (Migraine) Brother Diabetes Maternal Grandmother Heart Maternal Grandmother other (Agustín's disease) Daughter other (Agustín's Disease) Son other (Agustín's Disease) Son other (Bipolar) Son Breast Cancer Other Maternal Cousin Social History Tobacco Use Smoking status: Every Day Types: Cigars Start date: 05/04/2023 Smokeless tobacco: Never Tobacco comments: smokes 4 Clove cigars daily. Vaping Use Vaping status: Some Days Substances: THC Substance Use Topics Alcohol use: Yes Comment: once a month Drug use: Yes Types: Marijuana Comment: Lots of coffee per day/uses marijuana when pain gets severe PHYSICAL EXAM BP 128/80 Pulse 101 Resp 16 Wt 123.4 kg (272 lb) LMP 05/14/2015 SpO2 98% BMI 46.69 kg/m General Appearance: well appearing, in no acute distress, alert Eyes: conjunctiva pink and moist, no icterus, sclera white, non-injected BUE Extremities: No deformities, skin discoloration, clubbing or cyanosis. Good capillary refill. Small amount of nonpitting edema to left ring finger, pulses palpable and sensation intact Musculoskeletal: decreased ROM to left ring finger with tenderness to entire finger. Left middle and pinky finger with tenderness to DIP and PIP which patient was surprised by. No deformities or discoloration. Full ROM Health maintenance reviewed with patient: Spirometry Never done Depression Screening Never done Cervical Cancer Screening due on 04/14/2020 Mammogram Screening due on 10/04/2021 Influenza Vaccine(1) due on 04/11/2024 Covid-19 Vaccine( season) Never done Hepatitis B Vaccine(1 of 3 - 19+ 3-dose series) due on 06/09/2024 Shingrix Vaccine(1 of 2) due on 06/09/2024 Annual PCP Team Chronic Disease Visit due on 12/14/2024 Diabetes Screening due on 04/21/2027 Colorectal Cancer Screening due on 12/19/2027 Lipid Screening due on 04/21/2029 DTaP,Tdap,Td Vaccine(3 - Td or Tdap) due on 06/09/2033 Pneumococcal Vaccine Completed Hepatitis C Screening Discontinued HIV Screening Discontinued DATA REVIEWED: Most recent labs ASSESSMENT/PLAN: 1. Fall, initial encounter - ICD9: E888.9, ICD10: W19.XXXA (primary diagnosis) With the realization of tenderness to 2 other fingers outside of just ring finger, patient concerned she did not notice an injury to those fingers as well. Will xray all 3 Patient to keep fingers resting and immobile until xray resulted. Continue with ice and can use tylenol as discussed. Already on etodolac as ordered by ortho, - XR DIGIT GENERAL 3V FRONTAL/LAT/OBL LEFT 2. Edema, unspecified type - ICD9: 782.3, ICD10: R60.9 See #1 - XR DIGIT GENERAL 3V FRONTAL/LAT/OBL LEFT 3. Finger pain, left - ICD9: 729.5, ICD10: M79.645 See #1 - XR DIGIT GENERAL 3V FRONTAL/LAT/OBL LEFT Prescription instructions reviewed with patient as applicable. Potential red flag symptoms discussed with the patient. Reviewed appropriate action plan to take if red flag symptoms occur. Patient agreeable to treatment plan. Trinh Wayne APRN.CNP documented in this encounter [facility] 05-26-2024 Telephone encounter Note Patient reports she thinks she has a break in left hand ring finger. Was walking down the steps yesterday, tripped, caught self with left hand, ring finger bent completely back. Today a little swollen, took ring off yesterday in case it would swell. Using ice. Takes etodolac 1 cap q8h, prescribed by Dr. Griggs for right knee pain, which is also helping her finger pain. Scheduled same day appt with Susan. [facility] 05-26-2024 Miscellaneous Notes Patient reports she thinks she has a break in left hand ring finger. Was walking down the steps yesterday, tripped, caught self with left hand, ring finger bent completely back. Today a little swollen, took ring off yesterday in case it would swell. Using ice. Takes etodolac 1 cap q8h, prescribed by Dr. Griggs for right knee pain, which is also helping her finger pain. Scheduled same day appt with Susan. documented in this encounter [facility] 05-19-2024 Telephone encounter Note Patient phoned to request the following prescription(s) Last OV 01/19/2024 with Silvio Glynn CNP Requested Prescriptions Pending Prescriptions Disp Refills fremanezumab-vfrm (AJOVY AUTOINJECTOR) 225 mg/1.5 mL auto-injector 1.5 mL 11 Sig: Inject 1.5 mL subcutaneously once every month. Patient aware RX will be sent to pharmacy. No need to notify patient. Please review. Huma Garcia RN [facility] 05-19-2024 Miscellaneous Notes Patient phoned to request the following prescription(s) Last OV 01/19/2024 with Silvio Glynn CNP Requested Prescriptions Pending Prescriptions Disp Refills fremanezumab-vfrm (AJOVY AUTOINJECTOR) 225 mg/1.5 mL auto-injector 1.5 mL 11 Sig: Inject 1.5 mL subcutaneously once every month. Patient aware RX will be sent to pharmacy. No need to notify patient. Please review. Huma Garcia RN documented in this encounter [facility] 05-17-2024 Note HNO ID: [id number] Author: SURENDRA GRIGGS MD Service: ? Author Type: Physician Type: Progress Notes Filed: 06/01/2024 22:59 Note Text: Surendra Griggs MD Department of Orthopaedics [facility] [address] [facility] [address] Dept: [phone] Dept May 31, 2024 CHIEF COMPLAINT: New and Knee Pain of the Right Knee (, xrays [facility]) HPI Xrays [facility], hyperextended 3 weeks ago, started PT today) and New and Pain of the Right Ankle (Twisted when hyperextended knee 3 weeks ago AMB ROOMING INTAKE FLOWSHEET DATA Pain Pain Level: 7 Pain Location: Knee-Right (ankle right) Description: Throbbing, Stabbing, Aching Duration Amount of Time: 3 Duration Units: Weeks Frequency: Continuous Intervention/Comfort measure: Medication, Reposition, Cold Comments: Planters fasciitis hurts pretty much all the time Patient reports taking naproxen for pain. She is currently in physical therapy. She was seen at [facility]. ASSESSMENT: M17.11 Primary osteoarthritis of right knee (primary encounter diagnosis) M25.561 Acute pain of right knee M25.571 Acute right ankle pain PLAN: Exacerbation of her knee OA. She is going to work on her weight, strengthening, and we'll try a different NSAID. Will continue to monitor patient for Acute pain of right knee Acute right ankle pain Primary osteoarthritis of right knee (primary encounter diagnosis), patient to schedule visit as per follow up discussed. OBJECTIVE: Ms. Sky Zamudio is a pleasant 54 year old in no apparent distress. Gen:LMP 05/14/2015 nl development, obese, no deformities ENT: Normocephalic, normal hearing, moist mucosa CV: Pulses:DP/PT= 2+ and symmetric, capillary refill < 2 secs, no peripheral edema/varicosities Skin: no rash, bruising or lesions. Good turgor. Psych: cooperative and appropriate, alert and oriented x 3, good mood and affect. Musculoskeletal: Patient walks with mild antalgia, normal station. Hip motion without pain. Knee without effusion. Patella tracks normally. There is no patellar crepitance. No pain along the medial or lateral facets. Range of motion 5-120. Positive medial, without lateral joint line pain on palpation. Ligamentous exam stable on varus and valgus stress testing at 0 and 30 degrees. Extremity is warm and well perfused. Sensation is grossly intact to light touch, subjectively. Imaging: Deferred today, reviewed outside imaging of the knees, with medial OA. Supporting Subjective Information Below: Past Surgical History: PAST SURGICAL HISTORY Procedure Laterality Date ADENOIDECTOMY PRIMARY Adenoidectomy ANESTHESIA HERNIA REPAIR LOWER ABDOMEN NOS 01/31/2005 DELIVERY ONLY x 3 , low cervical CHOLECYSTECTOMY 03/05/2006 Cholecystectomy COLONOSCOPY 12/18/2022 COLONOSCOPY FLX DX W/COLLJ SPEC WHEN PFRMD 03/13/2005 Colonoscopy COLONOSCOPY FLX DX W/COLLJ SPEC WHEN PFRMD 04/28/2018 Colonoscopy COLSC FLX W/RMVL OF TUMOR POLYP LESION SNARE TQ 04/02/2016 ?mild colitis, tubular adenoma in rectal polyp - 5 year follow up EGD 12/18/2022 EGD TRANSORAL BIOPSY SINGLE/MULTIPLE 04/04/2010 mild gastritis ESOPHAGOGASTRODUODENOSCOPY TRANSORAL DIAGNOSTIC 03/13/2005 EGD ESOPHAGOGASTRODUODENOSCOPY TRANSORAL DIAGNOSTIC 09/14/2019 EGD HYSTERECTOMY HX 05/02/2015 with repair of incidental cystotomy HYSTEROSCOPY, DIAGNOSTIC (SEPARATE 06/21/2010 hysteroscopy DANDC, Novasure LIG/TRNSXJ FLP TUBE ABDL/VAG APPR UNI/BI Tubal ligation NEUROPLASTY AND/TRANSPOS MEDIAN NRV CARPAL TUNNE 06/04/2007 Carpal tunnel decomp right PAST SURGICAL HISTORY OF Abd hernia and mesh placement REPAIR INCISIONAL HERNIA 04/02/2005 with mesh - 3cm infraumbilical - 5cm below umbilicus- medium ventralex mesh 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 ondansetron orally disintegrating (ZOFRAN ODT) 4 mg disintegrating tablet Take 0.5-1 tablets by mouth every 6 hours as needed for nausea/vomiting. promethazine (PHENERGAN) 25 mg tablet Take 1 tablet by mouth every 6 hours as needed for nausea/vomiting. triamcinolone acetonide (NASACORT AQ) 55 mcg nasal inhaler Use 2 Sprays in the nose once daily as needed. EPINEPHrine (EPIPEN) 0.3 mg/0.3 mL auto-injector Inject subcutaneously. use as directed if needed after insect bite cyclobenzaprine (FLEXERIL) 10 mg tablet Take 1 tablet by mouth three times a day as needed. zolpidem (AMBIEN) 10 mg Take 1 tablet by mouth daily at bedtime for 180 days. carBAMazepine XR (TEGRETOL XR) 100 mg 12 hr tablet take 1 tablet by mouth twice a day COMBINED WITH THE 200 MG DOSE carBAMazepine XR (TEGRETOL XR) 200 mg 12 hr t (more content not included)... [facility] 05-17-2024 History of Present illness Narrative Surendra Griggs MD Department of Orthopaedics Orthopaedics [address] [facility] [address] Dept: [phone] Dept May 31, 2024 CHIEF COMPLAINT: New and Knee Pain of the Right Knee (, xrays [facility]) HPI Xrays [facility], hyperextended 3 weeks ago, started PT today) and New and Pain of the Right Ankle (Twisted when hyperextended knee 3 weeks ago AMB ROOMING INTAKE FLOWSHEET DATA Pain Pain Level: 7 Pain Location: Knee-Right (ankle right) Description: Throbbing, Stabbing, Aching Duration Amount of Time: 3 Duration Units: Weeks Frequency: Continuous Intervention/Comfort measure: Medication, Reposition, Cold Comments: Planters fasciitis hurts pretty much all the time Patient reports taking naproxen for pain. She is currently in physical therapy. She was seen at [facility]. ASSESSMENT: M17.11 Primary osteoarthritis of right knee (primary encounter diagnosis) M25.561 Acute pain of right knee M25.571 Acute right ankle pain PLAN: Exacerbation of her knee OA. She is going to work on her weight, strengthening, and we'll try a different NSAID. Will continue to monitor patient for Acute pain of right knee Acute right ankle pain Primary osteoarthritis of right knee (primary encounter diagnosis), patient to schedule visit as per follow up discussed. OBJECTIVE: Ms. Sky Zamudio is a pleasant 54 year old in no apparent distress. Gen:LMP 05/14/2015 nl development, obese, no deformities ENT: Normocephalic, normal hearing, moist mucosa CV: Pulses:DP/PT= 2+ and symmetric, capillary refill < 2 secs, no peripheral edema/varicosities Skin: no rash, bruising or lesions. Good turgor. Psych: cooperative and appropriate, alert and oriented x 3, good mood and affect. Musculoskeletal: Patient walks with mild antalgia, normal station. Hip motion without pain. Knee without effusion. Patella tracks normally. There is no patellar crepitance. No pain along the medial or lateral facets. Range of motion 5-120. Positive medial, without lateral joint line pain on palpation. Ligamentous exam stable on varus and valgus stress testing at 0 and 30 degrees. Extremity is warm and well perfused. Sensation is grossly intact to light touch, subjectively. Imaging: Deferred today, reviewed outside imaging of the knees, with medial OA. Supporting Subjective Information Below: Past Surgical History: PAST SURGICAL HISTORY Procedure Laterality Date ADENOIDECTOMY PRIMARY <AGE 12 Adenoidectomy ANESTHESIA HERNIA REPAIR LOWER ABDOMEN NOS 01/31/2005 DELIVERY ONLY x 3 , low cervical CHOLECYSTECTOMY 03/05/2006 Cholecystectomy COLONOSCOPY 12/18/2022 COLONOSCOPY FLX DX W/COLLJ SPEC WHEN PFRMD 03/13/2005 Colonoscopy COLONOSCOPY FLX DX W/COLLJ SPEC WHEN PFRMD 04/28/2018 Colonoscopy COLSC FLX W/RMVL OF TUMOR POLYP LESION SNARE TQ 04/02/2016 ?mild colitis, tubular adenoma in rectal polyp - 5 year follow up EGD 12/18/2022 EGD TRANSORAL BIOPSY SINGLE/MULTIPLE 04/04/2010 mild gastritis ESOPHAGOGASTRODUODENOSCOPY TRANSORAL DIAGNOSTIC 03/13/2005 EGD ESOPHAGOGASTRODUODENOSCOPY TRANSORAL DIAGNOSTIC 09/14/2019 EGD HYSTERECTOMY HX 05/02/2015 with repair of incidental cystotomy HYSTEROSCOPY, DIAGNOSTIC (SEPARATE 06/21/2010 hysteroscopy D&C, Novasure LIG/TRNSXJ FLP TUBE ABDL/VAG APPR UNI/BI Tubal ligation NEUROPLASTY &/TRANSPOS MEDIAN NRV CARPAL TUNNE 06/04/2007 Carpal tunnel decomp right PAST SURGICAL HISTORY OF Abd hernia and mesh placement REPAIR INCISIONAL HERNIA 04/02/2005 with mesh - 3cm infraumbilical - 5cm below umbilicus- medium ventralex mesh 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 ondansetron orally disintegrating (ZOFRAN ODT) 4 mg disintegrating tablet Take 0.5-1 tablets by mouth every 6 hours as needed for nausea/vomiting. promethazine (PHENERGAN) 25 mg tablet Take 1 tablet by mouth every 6 hours as needed for nausea/vomiting. triamcinolone acetonide (NASACORT AQ) 55 mcg nasal inhaler Use 2 Sprays in the nose once daily as needed. EPINEPHrine (EPIPEN) 0.3 mg/0.3 mL auto-injector Inject subcutaneously. use as directed if needed after insect bite cyclobenzaprine (FLEXERIL) 10 mg tablet Take 1 tablet by mouth three times a day as needed. zolpidem (AMBIEN) 10 mg Take 1 tablet by mouth daily at bedtime for 180 days. carBAMazepine XR (TEGRETOL XR) 100 mg 12 hr tablet take 1 tablet by mouth twice a day COMBINED WITH THE 200 MG DOSE carBAMazepine XR (TEGRETOL XR) 200 mg 12 hr tablet take 1 tablet by mouth twice a day COMBINED WITH THE 100 MG DOSE montelukast (SINGULAIR) 10 mg tablet Take 1 tablet by mouth daily at bedtime. methylPREDNISolone (MEDROL, ANDRÉS,) 4 mg Dose-Pack Take as instructed on packaging. acetaminophen 325 mg-caffeine 40 mg-butalbital 50 mg (FIORICET) per tablet Take 1 tablet by mouth every 6 hours if needed for headache. No more than 5 days per month. naratriptan (AMERGE) 2.5 mg tablet Take 1 tab at migraine onset. May repeat once in 2 hours if needed. albuterol HFA (VENTOLIN HFA) 90 mcg/actuation inhaler Inhale 2 Puffs as instructed every 4 hours as needed. Cholecalciferol, Vitamin D3, 50 mcg (2,000 unit) cap Take 2 capsules by mouth once daily. lansoprazole (PREVACID) 30 mg capsule Take 1 capsule by mouth two times a day. zuysaeef-cqtspxpsm-iikicrcplsdspk (CORTISPORIN) otic solution Use 3 Drops in the ears four times daily. As directed diclofenac (VOLTAREN) 1 % topical gel apply topically to affected area as directed if needed loratadine-pseudoephedrine ER (LORATA-D) 10-240 mg Tb24 Take 1 tablet by mouth once daily. Lactobacillus acidophilus (FLORAJEN ACIDOPHILUS) 20 billion cell capsule Take 1 capsule by mouth once daily. CPAP/BIPAP/OTHER Type .CPAPSettings into a note to see current settings/supplies/DME information. ipratropium 20 mcg-albuterol 100 mcg (COMBIVENT RESPIMAT) 20-100 mcg/actuation inhaler Inhale 1 Puff as instructed four times daily as needed for wheezing/shortness of breath. meclizine (ANTIVERT) 25 mg tab take 1/2 to 1 tablet by mouth every 6 hours if needed for dizziness multivitamin (TAB-A-JESSICA) tablet Take 1 tablet by mouth once daily. bisacodyl EC (DULCOLAX, BISACODYL,) 5 mg EC tablet Take 1 tablet by mouth once daily as needed for constipation. polyethylene glycol 3350 17 gram/dose powder Take 17 g by mouth once daily. Dissolve dose in 4 - 8 ounces of liquid and take as directed. Benzonatate 200 mg capsule Take 1 capsule by mouth three times daily as needed. terconazole (TERAZOL 7) 0.4 % vaginal cream Use 1 Applicator vaginally daily at bedtime. estrogens conjugated (PREMARIN) 0.3 mg tablet Take 0.3 mg by mouth. Taking 3 times per week. Prescribed by outside OB. hydroCHLOROthiazide (HYDRODIURIL, ESIDRIX) 25 mg tablet Take 1 tablet by mouth once daily as needed (fluid retention). No current facility-administered medications for this visit. Allergies: Bactrim [Sulfamethoxazole-Trimethoprim], Bees, Floxin [Ofloxacin], Ivp Dye [Iodine], Keflex [Cephalexin], Mangoes, Smoke, Topamax [Topiramate], Ultram [Tramadol Hcl], and Cefdinir ROS: General (negative for fatigue, malaise, weight loss/gain) HEENT (negative for headache, earache, recent vision changes, sinus pain, sore throat) Respiratory (no recent shortness of breath, hemoptysis) CV (negative for chest tightness, palpitations) Musculoskeletal (see HPI) Psych (no depression, anxiety) Surendra Griggs MD documented in this encounter [facility] 05-14-2024 Telephone encounter Note There are two My Chart messages currently open with this same message. See other note. Carmita Cabral RN May 14, 2024 10:12 AM [facility] 05-14-2024 Miscellaneous Notes There are two My Chart messages currently open with this same message. See other note. Carmita Cabral RN May 14, 2024 10:12 AM documented in this encounter [facility] 05-12-2024 Telephone encounter Note Patient called in again and states she has been having abdominal pain that is getting worse. She states the pain in her abdomen is a 7/10 and a cramping/spasm feeling that comes and goes. The black stools started about a week ago after she ate [place] food but have been consistently black and sticky . They have however been getting counter cutter the more she has bowel movements. She did start Klonopin this week to replace the Xanax but no other med changes. I did advise patient if the pain gets worse to go to the ER but patient refuses to go to the ER. She would like a call back at [phone]. [facility] 05-12-2024 Miscellaneous Notes Patient called in again and states she has been having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 04/03/2024 9:01:16 PM Prelim Date: 04/03/2024 9:06:32 PM Sign Date: 04/03/2024 9:14:06 PM Ordering Provider: ARETHA [facility] 03-25-2024 History of Present illness Narrative Radiology Service Progress Note PATIENT NAME: Sky Zamudio DATE OF SERVICE: March 25, 2024 TIME: 2:33 PM PATIENT IDENTITY VERIFICATION COMPLETED USING TWO (2) IDENTIFIERS: Name and Date of confirmed by patient verbally. FALL SCREENING: Has the patient had 2 falls in the last year or 1 fall with injury or currently using an Ambulatory Assistive Device (Walker, Cane, Wheelchair, Crutches, etc.)? No PATIENT GENDER DATA: Female. status: : No status: NO. PATIENT RELEVANT IMPLANT DATA REVIEWED: Yes PATIENT PRESENTS WITH AN IMPLANTABLE OR ATTACHED TOWNSHIP CLERK: No RADIOLOGY DEPARTMENT: General X-ray: Exam(s) Completed: Spine X-Ray(s): Lumbar AP / LAT / L5-S1 Upper Extremity X-Ray(s): Fingers/Thumb, left Ring finger PERIPHERAL IV DATA: Not applicable SIGNED BY: RT Talat(R) March 25, 2024 2:33 PM documented in this encounter [facility] 03-25-2024 Miscellaneous Notes No fracture of left fourth finger. Lumbar spine with degenerative changes with narrowing at theL4-5 disc space. documented in this encounter [facility] 03-25-2024 Note HNO ID: [id number] Author: GINI NIETO RT(Keri) Service: ? Author Type: Quality Control Supervisor Type: Progress Notes Filed: 03/25/2024 14:48 Note Text: Radiology Service Progress Note PATIENT NAME: Sky Zamudio DATE OF SERVICE: March 25, 2024 TIME: 2:33 PM PATIENT IDENTITY VERIFICATION COMPLETED USING TWO (2) IDENTIFIERS: Name and Date of confirmed by patient verbally. FALL SCREENING: Has the patient had 2 falls in the last year or 1 fall with injury or currently using an Ambulatory Assistive Device (Walker, Cane, Wheelchair, Crutches, etc.)? No PATIENT GENDER DATA: Female. status: : No status: NO. PATIENT RELEVANT IMPLANT DATA REVIEWED: Yes PATIENT PRESENTS WITH AN IMPLANTABLE OR ATTACHED TOWNSHIP CLERK: No RADIOLOGY DEPARTMENT: General X-ray: Exam(s) Completed: Spine X-Ray(s): Lumbar AP / LAT / L5-S1 Upper Extremity X-Ray(s): Fingers/Thumb, left Ring finger PERIPHERAL IV DATA: Not applicable SIGNED BY: RT Talat(R) March 25, 2024 2:33 PM [facility] 03-25-2024 Progress note Formatting of t his note might be different from the original. No fracture of left fourth finger. Lumbar spine with degenerative changes with narrowing at theL4-5 disc space. [facility] 03-25-2024 Note HNO ID: [id number] Author: AMERICO KHAN APRN.SUPERVISOR PLASTIC SHEETS Service: ? Author Type: Nurse Specialist Type: Progress Notes Filed: 03/25/2024 14:41 Note Text: SUBJECTIVE: Spirometry Never done Depression Screening Never done Cervical Cancer Screening due on 04/14/2020 Mammogram Screening due on 10/04/2021 HPI Sky Zamudio is a 54 year old female. PMH signficiant for ACTIVE PROBLEM LIST Esophageal Reflux Chronic Rhinitis Bipolar Disorder, Unspecified (Hcc) Other Specified Disorder of Gallbladder Mild Persistent Asthma Without Complication Obesity, Unspecified Irritable Bowel Syndrome Carpal Tunnel Syndrome Allergic Rhinitis, Cause Unspecified Calcaneal Spur Anxiety State, Unspecified Equinus Deformity of Foot, Acquired Unspecified Sleep Apnea Migraine Headache Acute Gastritis Without Mention of Hemorrhage Dysmenorrhea Irregular Menstrual Cycle Female Stress Incontinence Cystocele, Midline Ventral Hernia Strain of Rectus Abdominis Muscle Abdominal Pain Body Mass Index 40.0-44.9, Adult (Hcc) Nausea and Vomiting Mixed Incontinence Chronic Migraine Without Aura, With Intractable Migraine, So Stated, With Status Migrainosus Intractable Chronic Migraine Without Aura and Without Status Migrainosus Medication Overuse Headache Rebound Headache Axillary Mass Vitamin D Deficiency Atrophic Vaginitis Chronic Daily Headache Status Migrainosus Migraine Without Aura and Without Status Migrainosus, Not Intractable Anxiety Insomnia Intractable Chronic Migraine Without Aura and With Status Migrainosus Dysuria Presents today noting earlier today that she shut her left hand in a car door, she had her hand wrapped from the top of the door, struck her ring finger of the left hand on the PIP. Now bruised swollen with decreased range of motion. She separately reports chronic low back pain since August for she has been seeing chiropractor. She notes she gets adjustments which helped for a few days send the back pain returns. Reports she was advised that she may have an impinged nerve in her back. Today notes that she has low back pain midline to left-sided with radiation to the left leg with intermittent numbness or abnormal sensation. Notes no bowel or bladder complaints. She reports no x-ray has been completed, no physical therapy. Currently taking NSAIDs chronically. States chiropractor told her she may need an MRI for her back. Review of Systems Musculoskeletal: Positive for arthralgias and back pain. Objective BP 128/82 Pulse 102 Resp 16 Wt 122.2 kg (269 lb 6.4 oz) LMP 05/14/2015 BMI 46.24 kg/m? Physical Exam Vitals and nursing note reviewed. Constitutional: Appearance: Normal appearance. HENT: Head: Normocephalic and atraumatic. Eyes: Conjunctiva/sclera: Conjunctivae normal. Cardiovascular: Rate and Rhythm: Normal rate and regular rhythm. Heart sounds: Normal heart sounds. Pulmonary: Effort: Pulmonary effort is normal. Breath sounds: Normal breath sounds. Abdominal: General: Bowel sounds are normal. Palpations: Abdomen is soft. Musculoskeletal: Left hand: Bony tenderness present. No lacerations. Decreased range of motion. Normal sensation. Normal capillary refill. Normal pulse. Lumbar back: Tenderness present. Decreased range of motion. Comments: Ecchymosis and swelling with decreased ROM PIP left finger Skin: General: Skin is warm and dry. Neurological: Mental Status: She is alert. Mental status is at baseline. ALLERGIES Allergen Reactions Bactrim [Sulfametho* GI Upset complained of stomach cramps though had tolerated in the past Bees Floxin [Ofloxacin] interaction with valproic acid; caused bipolar exacerbation with depression ( bipolar low ) Ivp Dye [Iodine] Anaphylaxis Keflex [Cephalexin] Mental Status Change, Itching bipolar low at same time; not sure if from med; no rash was associated Mangoes Smoke Shortness of Breath Topamax [Topiramate] Dizziness Ultram [Tramadol Hc* Other: See Comments Migraine headaches Cefdinir Itching Medications cyclobenzaprine (FLEXERIL) 10 mg tablet Take 1 tablet by mouth three times a day as needed. zolpidem (AMBIEN) 10 mg Take 1 tablet by mouth daily at bedtime for 180 days. ALPRAZolam (XANAX) 0.5 mg tablet Take 1 tablet by mouth once daily as needed for anxiety for up to 30 days. carBAMazepine XR (TEGRETOL XR) 100 mg 12 hr tablet take 1 tablet by mouth twice a day COMBINED WITH THE 200 MG DOSE carBAMazepine XR (TEGRETOL XR) 200 mg 12 hr tablet take 1 tablet by mouth twice a day COMBINED WITH THE 100 MG DOSE montelukast (SINGULAIR) 10 mg tablet Take 1 tablet by mouth daily at bedtime. methylPREDNISolone (MEDROL, ANDRÉS,) 4 mg Dose-Pack Take as instructed on packaging. acetaminophen 325 mg-caffeine 40 mg-butalbital 50 mg (FIORICET) per tablet Take 1 tablet by mouth every 6 hours if needed for headache. No more than 5 days per month. (more content not included)... [facility] 03-25-2024 History of Present illness Narrative SUBJECTIVE: Spirometry Never done Depression Screening Never done Cervical Cancer Screening due on 04/14/2020 Mammogram Screening due on 10/04/2021 HPI Sky Zamudio is a 54 year old female. PMH signficiant for ACTIVE PROBLEM LIST Esophageal Reflux Chronic Rhinitis Bipolar Disorder, Unspecified (Hcc) Other Specified Disorder of Gallbladder Mild Persistent Asthma Without Complication Obesity, Unspecified Irritable Bowel Syndrome Carpal Tunnel Syndrome Allergic Rhinitis, Cause Unspecified Calcaneal Spur Anxiety State, Unspecified Equinus Deformity of Foot, Acquired Unspecified Sleep Apnea Migraine Headache Acute Gastritis Without Mention of Hemorrhage Dysmenorrhea Irregular Menstrual Cycle Female Stress Incontinence Cystocele, Midline Ventral Hernia Strain of Rectus Abdominis Muscle Abdominal Pain Body Mass Index 40.0-44.9, Adult (Hcc) Nausea and Vomiting Mixed Incontinence Chronic Migraine Without Aura, With Intractable Migraine, So Stated, With Status Migrainosus Intractable Chronic Migraine Without Aura and Without Status Migrainosus Medication Overuse Headache Rebound Headache Axillary Mass Vitamin D Deficiency Atrophic Vaginitis Chronic Daily Headache Status Migrainosus Migraine Without Aura and Without Status Migrainosus, Not Intractable Anxiety Insomnia Intractable Chronic Migraine Without Aura and With Status Migrainosus Dysuria Presents today noting earlier today that she shut her left hand in a car door, she had her hand wrapped from the top of the door, struck her ring finger of the left hand on the PIP. Now bruised swollen with decreased range of motion. She separately reports chronic low back pain since August for she has been seeing chiropractor. She notes she gets adjustments which helped for a few days send the back pain returns. Reports she was advised that she may have an impinged nerve in her back. Today notes that she has low back pain midline to left-sided with radiation to the left leg with intermittent numbness or abnormal sensation. Notes no bowel or bladder complaints. She reports no x-ray has been completed, no physical therapy. Currently taking NSAIDs chronically. States chiropractor told her she may need an MRI for her back. Review of Systems Musculoskeletal: Positive for arthralgias and back pain. Objective BP 128/82 Pulse 102 Resp 16 Wt 122.2 kg (269 lb 6.4 oz) LMP 05/14/2015 BMI 46.24 kg/m Physical Exam Vitals and nursing note reviewed. Constitutional: Appearance: Normal appearance. HENT: Head: Normocephalic and atraumatic. Eyes: Conjunctiva/sclera: Conjunctivae normal. Cardiovascular: Rate and Rhythm: Normal rate and regular rhythm. Heart sounds: Normal heart sounds. Pulmonary: Effort: Pulmonary effort is normal. Breath sounds: Normal breath sounds. Abdominal: General: Bowel sounds are normal. Palpations: Abdomen is soft. Musculoskeletal: Left hand: Bony tenderness present. No lacerations. Decreased range of motion. Normal sensation. Normal capillary refill. Normal pulse. Lumbar back: Tenderness present. Decreased range of motion. Comments: Ecchymosis and swelling with decreased ROM PIP left finger Skin: General: Skin is warm and dry. Neurological: Mental Status: She is alert. Mental status is at baseline. ALLERGIES Allergen Reactions Bactrim [Sulfametho* GI Upset complained of stomach cramps though had tolerated in the past Bees Floxin [Ofloxacin] interaction with valproic acid; caused bipolar exacerbation with depression ( bipolar low ) Ivp Dye [Iodine] Anaphylaxis Keflex [Cephalexin] Mental Status Change, Itching bipolar low at same time; not sure if from med; no rash was associated Mangoes Smoke Shortness of Breath Topamax [Topiramate] Dizziness Ultram [Tramadol Hc* Other: See Comments Migraine headaches Cefdinir Itching Medications cyclobenzaprine (FLEXERIL) 10 mg tablet Take 1 tablet by mouth three times a day as needed. zolpidem (AMBIEN) 10 mg Take 1 tablet by mouth daily at bedtime for 180 days. ALPRAZolam (XANAX) 0.5 mg tablet Take 1 tablet by mouth once daily as needed for anxiety for up to 30 days. carBAMazepine XR (TEGRETOL XR) 100 mg 12 hr tablet take 1 tablet by mouth twice a day COMBINED WITH THE 200 MG DOSE carBAMazepine XR (TEGRETOL XR) 200 mg 12 hr tablet take 1 tablet by mouth twice a day COMBINED WITH THE 100 MG DOSE montelukast (SINGULAIR) 10 mg tablet Take 1 tablet by mouth daily at bedtime. methylPREDNISolone (MEDROL, ANDRÉS,) 4 mg Dose-Pack Take as instructed on packaging. acetaminophen 325 mg-caffeine 40 mg-butalbital 50 mg (FIORICET) per tablet Take 1 tablet by mouth every 6 hours if needed for headache. No more than 5 days per month. naratriptan (AMERGE) 2.5 mg tablet Take 1 tab at migraine onset. May repeat once in 2 hours if needed. albuterol HFA (VENTOLIN HFA) 90 mcg/actuation inhaler Inhale 2 Puffs as instructed every 4 hours as needed. Cholecalciferol, Vitamin D3, 50 mcg (2,000 unit) cap Take 2 capsules by mouth once daily. lansoprazole (PREVACID) 30 mg capsule Take 1 capsule by mouth two times a day. meloxicam (MOBIC) 15 mg tablet Take 1 tablet by mouth once daily. alwdcyzh-dzjyjkdqj-dnpxvjyzqpqscf (CORTISPORIN) otic solution Use 3 Drops in the ears four times daily. As directed diclofenac (VOLTAREN) 1 % topical gel apply topically to affected area as directed if needed loratadine-pseudoephedrine ER (LORATA-D) 10-240 mg Tb24 Take 1 tablet by mouth once daily. Lactobacillus acidophilus (FLORAJEN ACIDOPHILUS) 20 billion cell capsule Take 1 capsule by mouth once daily. CPAP/BIPAP/OTHER Type .CPAPSettings into a note to see current settings/supplies/DME information. promethazine (PHENERGAN) 25 mg tablet Take 1 tablet by mouth every 6 hours as needed for nausea/vomiting. ipratropium 20 mcg-albuterol 100 mcg (COMBIVENT RESPIMAT) 20-100 mcg/actuation inhaler Inhale 1 Puff as instructed four times daily as needed for wheezing/shortness of breath. triamcinolone acetonide (NASACORT AQ) 55 mcg nasal inhaler Use 2 Sprays in the nose once daily as needed. fremanezumab-vfrm (AJOVY AUTOINJECTOR) 225 mg/1.5 mL auto-injector Inject 1.5 mL subcutaneously once every month. meclizine (ANTIVERT) 25 mg tab take 1/2 to 1 tablet by mouth every 6 hours if needed for dizziness ondansetron orally disintegrating (ZOFRAN ODT) 4 mg disintegrating tablet Take 1 tablet by mouth every 6 hours as needed for nausea/vomiting. multivitamin (TAB-A-JESSICA) tablet Take 1 tablet by mouth once daily. bisacodyl EC (DULCOLAX, BISACODYL,) 5 mg EC tablet Take 1 tablet by mouth once daily as needed for constipation. polyethylene glycol 3350 17 gram/dose powder Take 17 g by mouth once daily. Dissolve dose in 4 - 8 ounces of liquid and take as directed. Benzonatate 200 mg capsule Take 1 capsule by mouth three times daily as needed. terconazole (TERAZOL 7) 0.4 % vaginal cream Use 1 Applicator vaginally daily at bedtime. estrogens conjugated (PREMARIN) 0.3 mg tablet Take 0.3 mg by mouth. Taking 3 times per week. Prescribed by outside OB. hydroCHLOROthiazide (HYDRODIURIL, ESIDRIX) 25 mg tablet Take 1 tablet by mouth once daily as needed (fluid retention). EPINEPHrine (EPIPEN) 0.3 mg/0.3 mL auto-injector Inject subcutaneously. use as directed if needed after insect bite traMADol (ULTRAM) 50 mg tablet Take 1 tablet by mouth every 8 hours as needed for pain for up to 7 days. for pain. nicotine polacrilex (NICORETTE) 4 mg gum Take 1 Each by mouth as needed. PAST MEDICAL HISTORY No date: Abdominal pain, periumbilic No date: Acute gastritis without mention of hemorrhage 07/14/2018: Atrophic vaginitis No date: Bipolar disorder, unspecified (HCC) No date: Chronic rhinitis 12/10/2011: Closed fracture of navicular (scaphoid) bone of foot No date: Contact dermatitis and other eczema, due to unspecified cause No date: Diaphragmatic hernia without mention of obstruction or gangrene No date: Dysmenorrhea Comment: decreased No date: Esophageal reflux No date: Excessive or frequent menstruation Comment: Heavy periods resolved No date: Irregular menstrual cycle Comment: Irregular periods No date: Migraine headache No date: Obesity, unspecified No date: Other specified gastritis 12/12/2007: SLEEP APNEA NOS Comment: 12-03-07: effic 87%, no stage III, AHI 5.5, REM 20.9, supine 3, snoring 98%-rec CPAP trial No date: Stress incontinence No date: Unspecified asthma(493.90) No date: Unspecified symptom associated with female genital organs Social History Tobacco Use Smoking status: Former Types: Cigars Start date: 05/04/2023 Smokeless tobacco: Never Tobacco comments: smokes 4 Clove cigars daily. Vaping Use Vaping Use: Some days Substances: THC Substance Use Topics Alcohol use: Yes Comment: once a month Drug use: Yes Types: Marijuana Comment: Lots of coffee per day/uses marijuana when pain gets severe ASSESSMENT/PLAN: 1. Injury of finger of left hand, initial encounter - ICD9: 959.5, ICD10: S69.92XA (primary diagnosis) Rest ice and elevate your affected left finger. Avoid any painful activities.XR today. Finger cot until feeling improved - XR DIGIT GENERAL 3V FRONTAL/LAT/OBL LEFT - CONSULT TO ORTHOPAEDICS - TRAMADOL 50 MG TABLET 2. Chronic left-sided low back pain with left-sided sciatica - ICD9: 724.2, 724.3, 338.29, ICD10: M54.42, G89.29 - NSAIDS- see orders - Muscle relaxant- see orders - PT consult - Follow up if symptoms persist or worsen - XR LUMBAR GENERAL 3V AP/LAT/L5-S1 - CONSULT TO PHYSICAL THERAPY Americo Khan APRN.CNS Medical Decision Making: Problems: Low: 2+ self-limited or minor problems Data: Unique test(s) ordered: 1 Risk: Moderate: Drug management Medical Decision Making Level: 3 - Low documented in this encounter [facility] 03-25-2024 Instructions Americo Khan APRN.CNS - 03/25/2024 2:12 PM EDT Rest ice and elevate your affected left finger. Avoid any painful activities. documented in this encounter [facility] 03-25-2024 Telephone encounter Note Patient notified of providers message and verbalized understanting [facility] 03-25-2024 Miscellaneous Notes Patient notified of providers message and verbalized understanting Orders are in. MyChart message sent. Patient reports her lab orders were cancelled, because they , and asking if pcp can put these orders back in? Pended. Please phone patient to let her know when orders are in the lab: [phone] documented in this encounter [facility] 03-25-2024 Telephone encounter Note Orders are in. MyChart message sent. [facility] 03-25-2024 Telephone encounter Note Patient reports her lab orders were cancelled, because they , and asking if pcp can put these orders back in? Pended. Please phone patient to let her know when orders are in the lab: [phone] [facility] 03-19-2024 Telephone encounter Note The following approved medication requests have been transmitted electronically. Requested Prescriptions Signed Prescriptions Disp Refills ALPRAZolam (XANAX) 0.5 mg tablet 30 tablet 0 Sig: Take 1 tablet by mouth once daily as needed for anxiety for up to 30 days. Authorizing Provider: ELLIOTT MAHAJAN MD Below noted Last filled [facility] 03-19-2024 Miscellaneous Notes The following approved medication requests have been transmitted electronically. Requested Prescriptions Signed Prescriptions Disp Refills ALPRAZolam (XANAX) 0.5 mg tablet 30 tablet 0 Sig: Take 1 tablet by mouth once daily as needed for anxiety for up to 30 days. Authorizing Provider: ELLIOTT MAHAJAN MD Below noted Last filled [facility] Pt called in asking to have medication filled, she states her son is in liver failure and keeps rejection the medications and her mind is a mess right now. The patient has been identified by name and date of : Yes Caregiver verified no other encounters exist for this prescription request: Yes Caregiver confirmed with patient/requestor that no other refills are due, in the near future, with this provider at this time: Yes The last office visit in the department: 12/15/2023 Does the patient have a future office visit with this provider/department: Yes 06/18/2024 Requested Prescriptions Pending Prescriptions Disp Refills ALPRAZolam (XANAX) 0.5 mg tablet 30 tablet 0 Sig: Take 1 tablet by mouth once daily as needed for anxiety for up to 30 days. Radha Moore RN March 19, 2024 3:21 PM documented in this encounter [facility] 03-19-2024 Telephone encounter Note Pt called in asking to have medication filled, she states her son is in liver failure and keeps rejection the medications and her mind is a mess right now. The patient has been identified by name and date of : Yes Caregiver verified no other encounters exist for this prescription request: Yes Caregiver confirmed with patient/requestor that no other refills are due, in the near future, with this provider at this time: Yes The last office visit in the department: 12/15/2023 Does the patient have a future office visit with this provider/department: Yes 06/18/2024 Requested Prescriptions Pending Prescriptions Disp Refills ALPRAZolam (XANAX) 0.5 mg tablet 30 tablet 0 Sig: Take 1 tablet by mouth once daily as needed for anxiety for up to 30 days. Radha Moore RN March 19, 2024 3:21 PM [facility] 03-19-2024 Telephone encounter Note Prescription Refill Information The patient has been identified by name and date of : Yes Caregiver verified no other encounters exist for this prescription request: Yes Caregiver confirmed with patient/requestor that no other refills are due, in the near future, with this provider at this time: Yes The last office visit in the department: 12/15/2023 Does the patient have a future office visit with this provider/department: Yes Requested Prescriptions Pending Prescriptions Disp Refills cyclobenzaprine (FLEXERIL) 10 mg tablet 30 tablet 5 Sig: Take 1 tablet by mouth three times a day as needed. Gaurva Treviño MA March 19, 2024 10:55 AM [facility] 03-19-2024 Miscellaneous Notes Prescription Refill Information The patient has been identified by name and date of : Yes Caregiver verified no other encounters exist for this prescription request: Yes Caregiver confirmed with patient/requestor that no other refills are due, in the near future, with this provider at this time: Yes The last office visit in the department: 12/15/2023 Does the patient have a future office visit with this provider/department: Yes Requested Prescriptions Pending Prescriptions Disp Refills cyclobenzaprine (FLEXERIL) 10 mg tablet 30 tablet 5 Sig: Take 1 tablet by mouth three times a day as needed. Gaurav Treviño MA March 19, 2024 10:55 AM documented in this encounter [facility] 03-18-2024 Telephone encounter Note Prescription Refill Information The patient has been identified by name and date of : Yes Caregiver verified no other encounters exist for this prescription request: Yes Caregiver confirmed with patient/requestor that no other refills are due, in the near future, with this provider at this time: Yes The last office visit in the department: 12/15/23 Does the patient have a future office visit with this provider/department: Yes Requested Prescriptions Pending Prescriptions Disp Refills zolpidem (AMBIEN) 10 mg 30 tablet 5 Sig: Take 1 tablet by mouth daily at bedtime for 180 days. Ana Jones LPN March 18, 2024 9:52 AM [facility] 03-18-2024 Miscellaneous Notes Prescription Refill Information The patient has been identified by name and date of : Yes Caregiver verified no other encounters exist for this prescription request: Yes Caregiver confirmed with patient/requestor that no other refills are due, in the near future, with this provider at this time: Yes The last office visit in the department: 12/15/23 Does the patient have a future office visit with this provider/department: Yes Requested Prescriptions Pending Prescriptions Disp Refills zolpidem (AMBIEN) 10 mg 30 tablet 5 Sig: Take 1 tablet by mouth daily at bedtime for 180 days. Ana Jones LPN March 18, 2024 9:52 AM documented in this encounter [facility] 03-15-2024 Telephone encounter Note Message received from provider that 60-day supply script was sent in for tegretol. Pt updated and appreciative. [facility] 03-15-2024 Miscellaneous Notes Message received from provider that 60-day supply script was sent in for tegretol. Pt updated and appreciative. Pt calling in requesting refill for tegretol - states she only has enough for today's doses. Previous notes indicate that refill was refused as pt needing to establish care with psychiatrist. Pt states that she is unable to get into psychiatrist for a month, though is on a waiting list for a sooner appointment. Refill request currently pending. Pt updated and appreciative. Emotional support provided. documented in this encounter [facility] 03-15-2024 Telephone encounter Note Pt calling in requesting refill for tegretol - states she only has enough for today's doses. Previous notes indicate that refill was refused as pt needing to establish care with psychiatrist. Pt states that she is unable to get into psychiatrist for a month, though is on a waiting list for a sooner appointment. Refill request currently pending. Pt updated and appreciative. Emotional support provided. [facility] 03-12-2024 Telephone encounter Note Pt calling in again to request refill. Please advise. Thank you. [facility] 03-12-2024 Miscellaneous Notes Pt calling in again to request refill. Please advise. Thank you. Physician: Jose Call from patient requesting refill. Please E-Scribe Last office visit 01/19/24 with Jose virtual Next office visit Not scheduled. Requested Prescriptions Pending Prescriptions Disp Refills carBAMazepine XR (TEGRETOL XR) 100 mg 12 hr tablet [Pharmacy Med Name: CARBAMAZEPINE ER 100 MG TABLET] 180 tablet 0 Sig: take 1 tablet by mouth twice a day COMBINED WITH THE 200 MG DOSE carBAMazepine XR (TEGRETOL XR) 200 mg 12 hr tablet [Pharmacy Med Name: CARBAMAZEPINE ER 200 MG TABLET] 180 tablet 0 Sig: take 1 tablet by mouth twice a day COMBINED WITH THE 100 MG DOSE Pharmacy Name: [facility] documented in this encounter [facility] 03-07-2024 Telephone encounter Note The following approved medication requests have been transmitted electronically. Requested Prescriptions Pending Prescriptions Disp Refills montelukast (SINGULAIR) 10 mg tablet 30 tablet 0 Sig: Take 1 tablet by mouth daily at bedtime. Ellitot Mahajan MD [facility] 03-07-2024 Miscellaneous Notes The following approved medication requests have been transmitted electronically. Requested Prescriptions Pending Prescriptions Disp Refills montelukast (SINGULAIR) 10 mg tablet 30 tablet 0 Sig: Take 1 tablet by mouth daily at bedtime. Elliott Mahajan MD The patient has been identified by name and date of : Yes Caregiver verified no other encounters exist for this prescription request: Yes Caregiver confirmed with patient/requestor that no other refills are due, in the near future, with this provider at this time: Yes The last office visit in the department: 12/15/2023 Does the patient have a future office visit with this provider/department: Yes 06/18/2024 Requested Prescriptions Pending Prescriptions Disp Refills montelukast (SINGULAIR) 10 mg tablet 30 tablet 0 Sig: Take 1 tablet by mouth daily at bedtime. Maliha Stein RN March 05, 2024 4:23 PM documented in this encounter [facility] 03-05-2024 Telephone encounter Note The patient has been identified by name and date of : Yes Caregiver verified no other encounters exist for this prescription request: Yes Caregiver confirmed with patient/requestor that no other refills are due, in the near future, with this provider at this time: Yes The last office visit in the department: 12/15/2023 Does the patient have a future office visit with this provider/department: Yes 06/18/2024 Requested Prescriptions Pending Prescriptions Disp Refills montelukast (SINGULAIR) 10 mg tablet 30 tablet 0 Sig: Take 1 tablet by mouth daily at bedtime. Maliha Stein RN March 05, 2024 4:23 PM [facility] 02-10-2024 Telephone encounter Note Physician: Jose Call from patient requesting refill. Please E-Scribe Last office visit 01/19/24 with Jose virtual Next office visit Not scheduled. Requested Prescriptions Pending Prescriptions Disp Refills carBAMazepine XR (TEGRETOL XR) 100 mg 12 hr tablet [Pharmacy Med Name: CARBAMAZEPINE ER 100 MG TABLET] 180 tablet 0 Sig: take 1 tablet by mouth twice a day COMBINED WITH THE 200 MG DOSE carBAMazepine XR (TEGRETOL XR) 200 mg 12 hr tablet [Pharmacy Med Name: CARBAMAZEPINE ER 200 MG TABLET] 180 tablet 0 Sig: take 1 tablet by mouth twice a day COMBINED WITH THE 100 MG DOSE Pharmacy Name: [facility] D[facility] 01-22-2024 Telephone encounter Note Called and spoke with patient: pt states migraines increased after starting toradol. Pain is 8-9/10 continuous, same typical migraine symptoms, just more intense. Pt has not taken any oral steroids in the last 3 months and is agreeable to a medrol dose pack. Pharmacy: [place] [address] Mely Jorgensen RN [facility] 01-22-2024 Miscellaneous Notes Called and spoke with patient: pt states migraines increased after starting toradol. Pain is 8-9/10 continuous, same typical migraine symptoms, just more intense. Pt has not taken any oral steroids in the last 3 months and is agreeable to a medrol dose pack. Pharmacy: [place] [address] Mely Jorgensen RN Pt left voice message on [employer] line. Stated that she saw Pastora and was prescribed a new medication that has increased her migraines. She is now having continuous migraines therefore stopped the new medication. She would like a call. documented in this encounter [facility] 01-22-2024 Telephone encounter Note Pt left voice message on [employer] line. Stated that she saw Pastora and was prescribed a new medication that has increased her migraines. She is now having continuous migraines therefore stopped the new medication. She would like a call. [facility] 01-19-2024 History of Present illness Narrative Images from the original note were not included. [facility] - Follow [facility] Virtual Visit This visit was conducted as a virtual visit, with patient's permission, via Zoom. Patient location - [place] Zamudio was identified by name and and consented to the video evaluation and its limitations. Based on this evaluation it may be necessary for them to schedule a follow up evaluation with me or other neurologists for formal physical examination and if necessary,other studies. I have communicated my name and active licensure. The patient's identity and physical location were verified at the time of this visit. Either the patient or their legal event representative has been informed of the risks and benefits of -- and alternatives to -- treatment through a remote evaluation and consents to proceed with the evaluation remotely. Accompanied by: Self Primary Problem List: ACTIVE PROBLEM LIST Esophageal Reflux Chronic Rhinitis Bipolar Disorder, Unspecified (Hcc) Other Specified Disorder of Gallbladder Mild Persistent Asthma Without Complication Obesity, Unspecified Irritable Bowel Syndrome Carpal Tunnel Syndrome Allergic Rhinitis, Cause Unspecified Calcaneal Spur Anxiety State, Unspecified Equinus Deformity of Foot, Acquired Unspecified Sleep Apnea Migraine Headache Acute Gastritis Without Mention of Hemorrhage Dysmenorrhea Irregular Menstrual Cycle Female Stress Incontinence Cystocele, Midline Ventral Hernia Strain of Rectus Abdominis Muscle Abdominal Pain Body Mass Index 40.0-44.9, Adult (Hcc) Nausea and Vomiting Mixed Incontinence Chronic Migraine Without Aura, With Intractable Migraine, So Stated, With Status Migrainosus Intractable Chronic Migraine Without Aura and Without Status Migrainosus Medication Overuse Headache Rebound Headache Axillary Mass Vitamin D Deficiency Atrophic Vaginitis Chronic Daily Headache Status Migrainosus Migraine Without Aura and Without Status Migrainosus, Not Intractable Anxiety Insomnia Intractable Chronic Migraine Without Aura and With Status Migrainosus Dysuria Chief Complaint: Follow up Impression and Plan from last visit: 07/17/2023 w/ me IMPRESSION: Chronic migraine without aura without status migrainosus, not intractable (primary encounter diagnosis) Sky Zamudio is a 53 year old year old female with a history of bipolar disorder, migraine without aura, obesity s/p gastric bypass, GABY, with chronic daily headaches consistent with chronic migraine. Their neurological examination is essentially normal at this visit although this is limited due to nature of telehealth. Her migraines have improved since restarting Ajovy after delay in medication due to PA renewal. Since restarting Ajovy, naratriptan has become more effective for rescue. Does not need fioricet often, only takes it a second dose of naratriptan is not effective. We discussed MOH limits, which she has not exceeded. PLAN: Continue ajovy for prevention Continue naratriptan and fioricet for rescue Interval Headache History: Since the last visit, the patient states that their headaches have not changed. Still taking Ajovy- averaging 3 migraines/month. Naratriptan and Fioricet for rescue. Tries naratriptan first, if it does not work then she uses Fioricet. Having some increased life stressors-son is in hospital on liver transplant waitlist. She has had a migraine x 2 days. Headache 1 Onset: 1995 Location: right, left, temporal and occipital Quality/Description: piercing/stabbing and throbbing Associated Symptoms: Photophobia: yes Phonophobia: yes Nausea: yes Vomiting: yes - occasionally Other symptoms: none Worse with activity: yes Number of migraine headache days/month: 3 Number of NON-migraine headache days/month: 2 Total Number of headache days/month: 5 Number of headache free days/month: 20 Duration of headaches with treatment: 5 hours Current preventive treatment: Ajovy Current abortive treatment: naritriptan Triggers: odors, weather changes and bright lights Onset of headache to peak: gradual Positional changes: no Most common time of day for headache to begin: anytime Aura: none Days missed from work or school in the last month: 0 days Headache status since the last visit: worse (since missing Ajovy) Lifestyle: Sleep: 6-8 Exercise: none Preventative: Ajovy Abortive: naratriptan, Fioricet Medications effective? yes # of doses of abortive medications per month: 4 Analgesic Acetaminophen with codeine (Tylenol #3) Butalbital/acetaminophen/caffeine (Fioricet) Hydrocodone/Acetaminophen (Vicodin, [place]) Ketorolac (Toradol) Meloxicam (Mobic) Oxycodone/Acetaminophen (Percocet) Anti-Anxiety Diazepam (Valium) Anti-Convulsant Carbamazepine (Tegretol) Divalproex sodium (Depakote) Gabapentin (Neurontin) Lamotrigine (Lamictal) Topiramate (Topamax, Trokendi XL, Qudexy) Zonisamide (Zonegram) Anti-Depressant and Antipsychotic Amitriptyline (Elavil) Nortriptyline (Pamelor, Aventyl) Buspirone Antiemetics Ondansetron Prochlorperazine Promethazine Anti-Migraine Isometheptene/Acetaminophen/Dichloralp henazone (Midrin) Naratriptan (Amerge) Rizatriptan (Maxalt) Sumatriptan (Imitrex, Sumavel) Blood Pressure Verapamil (Verelan, Calan, Isoptin) Hydrochlorothiazide MABs Erenumab (Aimovig) Works for only 2 weeks and then wears off. Fremanezumab (Ajovy) Worked good but insurance stopped covering. GEPANTS Rimegepant (Nurtec) Muscle Relaxer Cyclobenzaprine (Flexeril) Tizanidine (Zanaflex) Sleep Aids Trazodone (Desyrel) Supplements Magnesium Other Medications Dexamethasone (Decadron) Methylprednisolone (Medrol) Prednisone Over the Counter Medications Acetaminophen/Aspirin/Caffeine (Excedrin, Goody s) Ibuprofen (Advil, Motrin) Naproxen sodium (Aleve) PAST MEDICAL HISTORY Diagnosis Date Abdominal pain, periumbilic Acute gastritis without mention of hemorrhage Atrophic vaginitis 07/14/2018 Bipolar disorder, unspecified (HCC) Chronic rhinitis Closed fracture of navicular (scaphoid) bone of foot 12/10/2011 Contact dermatitis and other eczema, due to unspecified cause Diaphragmatic hernia without mention of obstruction or gangrene Dysmenorrhea decreased Esophageal reflux Excessive or frequent menstruation Heavy periods resolved Irregular menstrual cycle Irregular periods Migraine headache Obesity, unspecified Other specified gastritis SLEEP APNEA NOS 12/12/2007 12-03-07: effic 87%, no stage III, AHI 5.5, REM 20.9, supine 3, snoring 98%-rec CPAP trial Stress incontinence Unspecified asthma(493.90) Unspecified symptom associated with female genital organs PAST SURGICAL HISTORY Procedure Laterality Date ADENOIDECTOMY PRIMARY <AGE 12 Adenoidectomy ANESTHESIA HERNIA REPAIR LOWER ABDOMEN NOS 01/31/2005 DELIVERY ONLY x 3 , low cervical CHOLECYSTECTOMY 03/05/2006 Cholecystectomy COLONOSCOPY 12/18/2022 COLONOSCOPY FLX DX W/COLLJ SPEC WHEN PFRMD 03/13/2005 Colonoscopy COLONOSCOPY FLX DX W/COLLJ SPEC WHEN PFRMD 04/28/2018 Colonoscopy COLSC FLX W/RMVL OF TUMOR POLYP LESION SNARE TQ 04/02/2016 ?mild colitis, tubular adenoma in rectal polyp - 5 year follow up EGD 12/18/2022 EGD TRANSORAL BIOPSY SINGLE/MULTIPLE 04/04/2010 mild gastritis ESOPHAGOGASTRODUODENOSCOPY TRANSORAL DIAGNOSTIC 03/13/2005 EGD ESOPHAGOGASTRODUODENOSCOPY TRANSORAL DIAGNOSTIC 09/14/2019 EGD HYSTERECTOMY HX 05/02/2015 with repair of incidental cystotomy HYSTEROSCOPY, DIAGNOSTIC (SEPARATE 06/21/2010 hysteroscopy D&C, Novasure LIG/TRNSXJ FLP TUBE ABDL/VAG APPR UNI/BI Tubal ligation NEUROPLASTY &/TRANSPOS MEDIAN NRV CARPAL TUNNE 06/04/2007 Carpal tunnel decomp right PAST SURGICAL HISTORY OF Abd hernia and mesh placement REPAIR INCISIONAL HERNIA 04/02/2005 with mesh - 3cm infraumbilical - 5cm below umbilicus- medium ventralex mesh SLING OPER STRES INCONTINENCE 05/02/2015 TONSILLECTOMY PRIMARY/SECONDARY <AGE 12 Tonsillectomy ALLERGIES Allergen Reactions Bactrim [Sulfametho* GI Upset complained of stomach cramps though had tolerated in the past Bees Floxin [Ofloxacin] interaction with valproic acid; caused bipolar exacerbation with depression ( bipolar low ) Ivp Dye [Iodine] Anaphylaxis Keflex [Cephalexin] Mental Status Change, Itching bipolar low at same time; not sure if from med; no rash was associated Mangoes Smoke Shortness of Breath Topamax [Topiramate] Dizziness Ultram [Tramadol Hc* Other: See Comments Migraine headaches Cefdinir Itching Current Medications: albuterol HFA (VENTOLIN HFA) 90 mcg/actuation inhaler Inhale 2 Puffs as instructed every 4 hours as needed. Cholecalciferol, Vitamin D3, 50 mcg (2,000 unit) cap Take 2 capsules by mouth once daily. cyclobenzaprine (FLEXERIL) 10 mg tablet Take 1 tablet by mouth three times a day as needed. lansoprazole (PREVACID) 30 mg capsule Take 1 capsule by mouth two times a day. meloxicam (MOBIC) 15 mg tablet Take 1 tablet by mouth once daily. zolpidem (AMBIEN) 10 mg Take 1 tablet by mouth daily at bedtime for 180 days. vgsmtjum-jvujinfog-dejanmoamapovf (CORTISPORIN) otic solution Use 3 Drops in the ears four times daily. As directed diclofenac (VOLTAREN) 1 % topical gel apply topically to affected area as directed if needed carBAMazepine XR (TEGRETOL XR) 100 mg 12 hr tablet Take 1 tablet by mouth two times a day. Combine with 200 mg twice daily for 300 mg twice daily dose. carBAMazepine XR (TEGRETOL XR) 200 mg 12 hr tablet Take 1 tablet by mouth two times a day. Add to 100 mg twice daily for 300 mg twice daily total dose. loratadine-pseudoephedrine ER (LORATA-D) 10-240 mg Tb24 Take 1 tablet by mouth once daily. Lactobacillus acidophilus (FLORAJEN ACIDOPHILUS) 20 billion cell capsule Take 1 capsule by mouth once daily. CPAP/BIPAP/OTHER Type .CPAPSettings into a note to see current settings/supplies/DME information. promethazine (PHENERGAN) 25 mg tablet Take 1 tablet by mouth every 6 hours as needed for nausea/vomiting. ipratropium 20 mcg-albuterol 100 mcg (COMBIVENT RESPIMAT) 20-100 mcg/actuation inhaler Inhale 1 Puff as instructed four times daily as needed for wheezing/shortness of breath. triamcinolone acetonide (NASACORT AQ) 55 mcg nasal inhaler Use 2 Sprays in the nose once daily as needed. fremanezumab-vfrm (AJOVY AUTOINJECTOR) 225 mg/1.5 mL auto-injector Inject 1.5 mL subcutaneously once every month. meclizine (ANTIVERT) 25 mg tab take 1/2 to 1 tablet by mouth every 6 hours if needed for dizziness ondansetron orally disintegrating (ZOFRAN ODT) 4 mg disintegrating tablet Take 1 tablet by mouth every 6 hours as needed for nausea/vomiting. multivitamin (TAB-A-JESSICA) tablet Take 1 tablet by mouth once daily. EPINEPHrine (EPIPEN) 0.3 mg/0.3 mL auto-injector Inject subcutaneously. use as directed if needed after insect bite bisacodyl EC (DULCOLAX, BISACODYL,) 5 mg EC tablet Take 1 tablet by mouth once daily as needed for constipation. polyethylene glycol 3350 17 gram/dose powder Take 17 g by mouth once daily. Dissolve dose in 4 - 8 ounces of liquid and take as directed. montelukast (SINGULAIR) 10 mg tablet Take 1 tablet by mouth daily at bedtime. terconazole (TERAZOL 7) 0.4 % vaginal cream Use 1 Applicator vaginally daily at bedtime. estrogens conjugated (PREMARIN) 0.3 mg tablet Take 0.3 mg by mouth. Taking 3 times per week. Prescribed by outside OB. hydroCHLOROthiazide (HYDRODIURIL, ESIDRIX) 25 mg tablet Take 1 tablet by mouth once daily as needed (fluid retention). keTORolac (TORADOL) 10 mg tablet 1 tab TID with food until headache free x 24 hours, or used for 5 days. acetaminophen 325 mg-caffeine 40 mg-butalbital 50 mg (FIORICET) per tablet Take 1 tablet by mouth every 6 hours if needed for headache. No more than 5 days per month. naratriptan (AMERGE) 2.5 mg tablet Take 1 tab at migraine onset. May repeat once in 2 hours if needed. nicotine polacrilex (NICORETTE) 4 mg gum Take 1 Each by mouth as needed. Benzonatate 200 mg capsule Take 1 capsule by mouth three times daily as needed. I have reviewed the Health Status Assessment responses and discussed these with the patient: yes Pastora Glynn APRN.TIMBER HAND HEADACHE SCORES: 04/17/2023 07/16/2023 01/17/2024 Headache Questions ER visits since last office visit: 0 0 0 Hospital stays since last office visit 0 0 0 Limited ADLs in the last month: 7 0 3 Days missed from work or school in the last month: 2 0 0 Days headache pain free in the last month: 14 20 Days per month with ALL of the following symptoms - decreased productivity, light sensitivity and nausea: 14 2 3 Initial improvement of headache after botox injection at last visit: Not applicable, I did not have a botox injection at my last visit Not applicable, I did not have a botox injection at my last visit Not applicable, I did not have a botox injection at my last visit PRN medication usage in the last month: 14 10 7 Patient impression of improvement since last visit: Much worse Much improved Much improved 04/17/2023 07/17/2023 01/17/2024 HIT-6 HIT-6 63 (Severe impact) 56 (Substantial impact) 48 (Little or no impact) 04/17/2023 07/17/2023 01/17/2024 RAMONA - 2/7 SCORES RAMONA-2 Score 5 2 2 RAMONA-7 Score 16 04/17/2023 07/17/2023 01/17/2024 Migraine Specific QOL - Higher scores indicate better HRQL Role Function-Restrictive Transformed Score (range: 0-100) 51.43 80 80 Role Function-Preventive Transformed Score (range: 0-100) 75 80 95 Emotional Function Transformed Score (range: 0-100) 66.67 80 80 07/17/2023 12/15/2023 01/17/2024 PHQ-9 Score 8 14 4 MRI Head/Brain - Last 2 Impressions MRI BRAIN WO CONTRAST Collected: 06/10/2011 8:49 AM (Final result) Labs to Review: No New Health Issues: No New Family History: No Review of Systems: Review of system: unchanged from the previous visit (sleep patterns, mood, energy, appetite, stress, exercising). Physical Examination: Vital Signs: No vital signs taken for this visit due to nature of virtual visit. General: well appearing, in no acute distress, alert Pain Behaviors: no pain behaviors observed Neurological: Mental Status: Alert and oriented to person, place and time. Affect is normal. Speech is spontaneous and fluent without dysarthria. Short and ocean transportation intermediary memory, cognition and general fund of knowledge are good. Attention span and concentration are excellent. HEENT: Head is normocephalic and features were symmetric. Musculoskeletal: Patient able to sit up right in chair for entirety of visit. Cranial Nerves: III, IV, -EOMI: full. VII-face is symmetric without evidence of weakness. VIII-hearing intact. IMPRESSION: Chronic migraine without aura, with intractable migraine, so stated, with status migrainosus (primary encounter diagnosis) Sky Zamudio is a 53 year old year old female with a history of bipolar disorder, migraine without aura, obesity s/p gastric bypass, GABY, with chronic daily headaches consistent with chronic migraine . Their neurological examination is essentially normal at this visit although this is limited due to nature of telehealth. Migraines remain well controlled and episodic on Ajovy. Denies any ASE. She uses naratriptan for first line migraine rescue, if it is ineffective she uses Fioricet. Currently stuck in a migraine cycle x 2 days likely 2/2 being due for her next Ajovy injection and increased life stressors. PLAN: Continue Ajovy Continue naratriptan and Fioricet for rescue Toradol bridge for current migraine- hold meloxicam while taking. Prior Authorization: Sky Zamudio has been previously approved for Calcitonin Gene Related Peptide Monoclonal Antibody (CGRP MAB) (Fremanezumab). The patient has demonstrated the following: Patient reduction in overall migraine days: Yes Patient reduction in moderate-severe migraine days: Yes Individual has obtained clinical benefit deemed significant by individual or prescriber: Yes Patient's quality of life and ability to perform ADLs has improved: Yes We suggest the patient continue treatment with CGRP MAB Fremanezumab. The following preventative medications have been tried for three or more months without benefit: Anti-Convulsant Carbamazepine (Tegretol) Divalproex sodium (Depakote) Gabapentin (Neurontin) Lamotrigine (Lamictal) Topiramate (Topamax, Trokendi XL, Qudexy) Zonisamide (Zonegram) Anti-Depressant and Antipsychotic Amitriptyline (Elavil) Nortriptyline (Pamelor, Aventyl) Buspirone Blood Pressure Verapamil (Verelan, Calan, Isoptin) Hydrochlorothiazide MABs Erenumab (Aimovig) Works for only 2 weeks and then wears off. Fremanezumab (Ajovy) Worked good but insurance stopped covering. Supplements Magnesium The following abortive medications have been tried but require high frequency use which can lead to Medication Overuse Headache: Analgesic Acetaminophen with codeine (Tylenol #3) Butalbital/acetaminophen/caffeine (Fioricet) Hydrocodone/Acetaminophen (Vicodin, [place]) Ketorolac (Toradol) Meloxicam (Mobic) Oxycodone/Acetaminophen (Percocet) Anti-Anxiety Diazepam (Valium) Anti-Migraine Isometheptene/Acetaminophen/Dichloralp henazone (Midrin) Naratriptan (Amerge) Rizatriptan (Maxalt) Sumatriptan (Imitrex, Sumavel) GEPANTS Rimegepant (Nurtec) Over the Counter Medications Acetaminophen/Aspirin/Caffeine (Excedrin, Goody s) Ibuprofen (Advil, Motrin) Naproxen sodium (Aleve) HEADACHE MANAGEMENT: (You are the primary guardian of your health and headache. Keep track of all medications: This includes the reason for use, side effects and benefits.) MEDICATION TREATMENT: Medications to Start Taking keTORolac (TORADOL) 10 mg tablet 1 tab TID with food until headache free x 24 hours, or used for 5 days. acetaminophen 325 mg-caffeine 40 mg-butalbital 50 mg (FIORICET) per tablet Take 1 tablet by mouth every 6 hours if needed for headache. No more than 5 days per month. naratriptan (AMERGE) 2.5 mg tablet Take 1 tab at migraine onset. May repeat once in 2 hours if needed. Headache education was done. Discussed lifestyle modification including increased oral hydration, decreased caffeine, exercise and stress management. Discussed treatment options including preventive and acute medications, natural supplements, and infusion therapy. Discussed medication overuse headache and to limit use of acute treatments to no more than 2 days/week or 10 days/month. Discussed medication side effects, adverse reactions and drug interactions. RESEARCH: None at this time Follow-up: 6 months Level of Service: Virtual Visit 20 minutes Pastora Glynn APRN.MIGUE Headache Section [facility] January 19, 2024 documented in this encounter [facility] 01-19-2024 Note HNO ID: [id number] Author: PASTORA GLYNN APRN.MIGUE Service: ? Author Type: Nurse Practitioner Type: Progress Notes Filed: 01/20/2024 08:12 Note Text: [facility] - Follow up Virtual Visit This visit was conducted as a virtual visit, with patient's permission, via Zoom. Patient location - [place] Zamudio was identified by name and and consented to the video evaluation and its limitations. Based on this evaluation it may be necessary for them to schedule a follow up evaluation with me or other neurologists for formal physical examination and if necessary,other studies. I have communicated my name and active licensure. The patient's identity and physical location were verified at the time of this visit. Either the patient or their legal event representative has been informed of the risks and benefits of -- and alternatives to -- treatment through a remote evaluation and consents to proceed with the evaluation remotely. Accompanied by: Self Primary Problem List: ACTIVE PROBLEM LIST Esophageal Reflux Chronic Rhinitis Bipolar Disorder, Unspecified (Hcc) Other Specified Disorder of Gallbladder Mild Persistent Asthma Without Complication Obesity, Unspecified Irritable Bowel Syndrome Carpal Tunnel Syndrome Allergic Rhinitis, Cause Unspecified Calcaneal Spur Anxiety State, Unspecified Equinus Deformity of Foot, Acquired Unspecified Sleep Apnea Migraine Headache Acute Gastritis Without Mention of Hemorrhage Dysmenorrhea Irregular Menstrual Cycle Female Stress Incontinence Cystocele, Midline Ventral Hernia Strain of Rectus Abdominis Muscle Abdominal Pain Body Mass Index 40.0-44.9, Adult (Hcc) Nausea and Vomiting Mixed Incontinence Chronic Migraine Without Aura, With Intractable Migraine, So Stated, With Status Migrainosus Intractable Chronic Migraine Without Aura and Without Status Migrainosus Medication Overuse Headache Rebound Headache Axillary Mass Vitamin D Deficiency Atrophic Vaginitis Chronic Daily Headache Status Migrainosus Migraine Without Aura and Without Status Migrainosus, Not Intractable Anxiety Insomnia Intractable Chronic Migraine Without Aura and With Status Migrainosus Dysuria Chief Complaint: Follow up Impression and Plan from last visit: 07/17/2023 w/ me IMPRESSION: Chronic migraine without aura without status migrainosus, not intractable (primary encounter diagnosis) Sky Zamudio is a 53 year old year old female with a history of bipolar disorder, migraine without aura, obesity s/p gastric bypass, GABY, with chronic daily headaches consistent with chronic migraine. Their neurological examination is essentially normal at this visit although this is limited due to nature of telehealth. Her migraines have improved since restarting Ajovy after delay in medication due to PA renewal. Since restarting Ajovy, naratriptan has become more effective for rescue. Does not need fioricet often, only takes it a second dose of naratriptan is not effective. We discussed MOH limits, which she has not exceeded. PLAN: Continue ajovy for prevention Continue naratriptan and fioricet for rescue Interval Headache History: Since the last visit, the patient states that their headaches have not changed. Still taking Ajovy- averaging 3 migraines/month. Naratriptan and Fioricet for rescue. Tries naratriptan first, if it does not work then she uses Fioricet. Having some increased life stressors-son is in hospital on liver transplant waitlist. She has had a migraine x 2 days. Headache 1 Onset: 1994 Location: right, left, temporal and occipital Quality/Description: piercing/stabbing and throbbing Associated Symptoms: Photophobia: yes Phonophobia: yes Nausea: yes Vomiting: yes - occasionally Other symptoms: none Worse with activity: yes Number of migraine headache days/month: 3 Number of NON-migraine headache days/month: 2 Total Number of headache days/month: 5 Number of headache free days/month: 20 Duration of headaches with treatment: 5 hours Current preventive treatment: Ajovy Current abortive treatment: naritriptan Triggers: odors, weather changes and bright lights Onset of headache to peak: gradual Positional changes: no Most common time of day for headache to begin: anytime Aura: none Days missed from work or school in the last month: 0 days Headache status since the last visit: worse (since missing Ajovy) Lifestyle: Sleep: 6-8 Exercise: none Preventative: Ajovy Abortive: naratriptan, Fioricet Medications effective? yes # of doses of abortive medications per month: 4 Analgesic Acetaminophen with codeine (Tylenol #3) Butalbital/acetaminophen/caffeine (Fioricet) Hydrocodone/Acetaminophen (Vicodin, [place]) Ketorolac (Toradol) Meloxicam (Mobic) Oxycodone/Acetaminophen (Percocet) Anti-Anxiety Diazepam (Valium) Anti-Convulsant Carbamazepine (Tegretol) Divalproex so (more content not included)... [facility] 12-24-2023 Note Patient Outreach (IN [facility]) ---- SKY ZAMUDIO ([id number]) 1970 F Date Time Provider Department 12/24/23 ELLIOTT MAHAJAN During your visit today, we recorded the following information about you: Allergies As of Date: 12/24/2023 Noted Allergy Reaction BACTRIM (SULFAMETHOXAZOLE-TRIMETH*10/18/2010 8 - GI Upset Comments: complained of stomach cramps though had tolerated in the past BEES 05/23/2005 FLOXIN (OFLOXACIN) 04/10/2005 Comments: interaction with valproic acid; caused bipolar exacerbation with depression ( bipolar low ) IVP DYE (IODINE) 05/23/2005 10 - Anaphylaxis KEFLEX (CEPHALEXIN) 11/09/2014 1 - Mental Status Change 9 - Itching Comments: bipolar low at same time; not sure if from med; no rash was associated MANGOES 04/21/2007 SMOKE 06/11/2007 12 - Shortness of Breath TOPAMAX (TOPIRAMATE) 03/22/2008 Comments: Dizziness ULTRAM (TRAMADOL HCL) 08/09/2014 14 - Other: See Comments Comments: Migraine headaches CEFDINIR 05/09/2023 9 - Itching Date Reviewed: 12/15/2023 Reviewed by: Juliana Peck LPN - Fully Assessed Visit Diagnosis:Encounter for screening mammogram for breast cancer [Z12.31] Order(s):[facility] SCREENING [[id number]] Order #: [id number] FUTURE Prescriptions as of 12/29/2023 - ALPRAZolam (XANAX) 0.5 mg tablet Take 1 tablet by mouth once daily as needed for anxiety for up to 30 days. - albuterol HFA (VENTOLIN HFA) 90 mcg/actuation inhaler Inhale 2 Puffs as instructed every 4 hours as needed. - Cholecalciferol, Vitamin D3, 50 mcg (2,000 unit) cap Take 2 capsules by mouth once daily. - cyclobenzaprine (FLEXERIL) 10 mg tablet Take 1 tablet by mouth three times a day as needed. - lansoprazole (PREVACID) 30 mg capsule Take 1 capsule by mouth two times a day. - meloxicam (MOBIC) 15 mg tablet Take 1 tablet by mouth once daily. - zolpidem (AMBIEN) 10 mg Take 1 tablet by mouth daily at bedtime for 180 days. - hsargdbw-pnebpngoe-wmnhqudmufddfn (CORTISPORIN) otic solution Use 3 Drops in the ears four times daily. As directed - diclofenac (VOLTAREN) 1 % topical gel apply topically to affected area as directed if needed - carBAMazepine XR (TEGRETOL XR) 100 mg 12 hr tablet Take 1 tablet by mouth two times a day. Combine with 200 mg twice daily for 300 mg twice daily dose. - carBAMazepine XR (TEGRETOL XR) 200 mg 12 hr tablet Take 1 tablet by mouth two times a day. Add to 100 mg twice daily for 300 mg twice daily total dose. - loratadine-pseudoephedrine ER (LORATA-D) 10-240 mg Tb24 Take 1 tablet by mouth once daily. - acetaminophen 325 mg-caffeine 40 mg-butalbital 50 mg (FIORICET) per tablet Take 1 tablet by mouth every 6 hours if needed for headache. No more than 5 days per month. - nicotine polacrilex (NICORETTE) 4 mg gum Take 1 Each by mouth as needed. - Lactobacillus acidophilus (FLORAJEN ACIDOPHILUS) 20 billion cell capsule Take 1 capsule by mouth once daily. - CPAP/BIPAP/OTHER Type .CPAPSettings into a note to see current settings/supplies/DME information. - promethazine (PHENERGAN) 25 mg tablet Take 1 tablet by mouth every 6 hours as needed for nausea/vomiting. - ipratropium 20 mcg-albuterol 100 mcg (COMBIVENT RESPIMAT) 20-100 mcg/actuation inhaler Inhale 1 Puff as instructed four times daily as needed for wheezing/shortness of breath. - triamcinolone acetonide (NASACORT AQ) 55 mcg nasal inhaler Use 2 Sprays in the nose once daily as needed. - fremanezumab-vfrm (AJOVY AUTOINJECTOR) 225 mg/1.5 mL auto-injector Inject 1.5 mL subcutaneously once every month. - naratriptan (AMERGE) 2.5 mg tablet Take 1 tab at migraine onset. May repeat once in 2 hours if needed. - meclizine (ANTIVERT) 25 mg tab take 1/2 to 1 tablet by mouth every 6 hours if needed for dizziness - ondansetron orally disintegrating (ZOFRAN ODT) 4 mg disintegrating tablet Take 1 tablet by mouth every 6 hours as needed for nausea/vomiting. - multivitamin (TAB-A-JESSICA) tablet Take 1 tablet by mouth once daily. - EPINEPHrine (EPIPEN) 0.3 mg/0.3 mL auto-injector Inject subcutaneously. use as directed if needed after insect bite - bisacodyl EC (DULCOLAX, BISACODYL,) 5 mg EC tablet Take 1 tablet by mouth once daily as needed for constipation. - polyethylene glycol 3350 17 gram/dose powder Take 17 g by mouth once daily. Dissolve dose in 4 - 8 ounces of liquid and take as directed. - Benzonatate 200 mg capsule Take 1 capsule by mouth three times daily as needed. - montelukast (SINGULAIR) 10 mg tablet Take 1 tablet by mouth daily at bedtime. - terconazole (TERAZOL 7) 0.4 % vaginal cream Use 1 Applicator vaginally daily at bedtime. - estrogens conjugated (PREMARIN) 0.3 mg tablet Take 0.3 mg by mouth. Taking 3 times per week. Prescribed by outside OB. - hydroCHLOROthiazide (HYDRODIURIL, ESIDRIX) 25 mg tablet Take 1 tablet by mouth once daily as needed (fluid retention). Prob (more content not included)... [facility] 12-15-2023 Note HNO ID: [id number] Author: ELLIOTT MAHAJAN MD Service: ? Author Type: Physician Type: Progress Notes Filed: 12/19/2023 00:24 Note Text: This note was created using [employer]. Subjective Sky Zamudio is a 53 year old female. Patient presents with: F/U 6 months SUBJECTIVE: Sky Zamudio is a 53 year old year old lady here today for 6 month follow up appointment for review of medical conditions. Son has liver failure--end stage. Might be on transplant list. Has history of Agustín's disease. Feels like nerves acting up. Will see counselor . Needs refill on Xanax. Last RX was April last year and 60 pills lasted since then. Lips feel numb most of the time past 2 to 3 days. Not sure of the trigger. CPAP machine was brought to DME supplier. They never called her back with replacement and this was over a year ago. Dropped off on [employer] in [place]. Leg numb on left lateral thigh since [facility] August 28 this year. Working with chiropractor. PAST MEDICAL HISTORY Diagnosis Date Abdominal pain, periumbilic Acute gastritis without mention of hemorrhage Atrophic vaginitis 07/14/2018 Bipolar disorder, unspecified (HCC) Chronic rhinitis Closed fracture of navicular (scaphoid) bone of foot 12/10/2011 Contact dermatitis and other eczema, due to unspecified cause Diaphragmatic hernia without mention of obstruction or gangrene Dysmenorrhea decreased Esophageal reflux Excessive or frequent menstruation Heavy periods resolved Irregular menstrual cycle Irregular periods Migraine headache Obesity, unspecified Other specified gastritis SLEEP APNEA NOS 12/12/200708: effic 87%, no stage III, AHI 5.5, REM 20.9, supine 3, snoring 98%-rec CPAP trial Stress incontinence Unspecified asthma(493.90) Unspecified symptom associated with female genital organs Current Outpatient Medications Medication Sig diclofenac (VOLTAREN) 1 % topical gel apply topically to affected area as directed if needed carBAMazepine XR (TEGRETOL XR) 100 mg 12 hr tablet Take 1 tablet by mouth two times a day. Combine with 200 mg twice daily for 300 mg twice daily dose. carBAMazepine XR (TEGRETOL XR) 200 mg 12 hr tablet Take 1 tablet by mouth two times a day. Add to 100 mg twice daily for 300 mg twice daily total dose. zolpidem (AMBIEN) 10 mg Take 1 tablet by mouth daily at bedtime for 90 days. Do not start before October 15, 2023. lansoprazole (PREVACID) 30 mg capsule take 1 capsule by mouth twice a day meloxicam (MOBIC) 15 mg tablet take 1 tablet by mouth once daily loratadine-pseudoephedrine ER (LORATA-D) 10-240 mg Tb24 Take 1 tablet by mouth once daily. cyclobenzaprine (FLEXERIL) 10 mg tablet Take 1 tablet by mouth three times a day as needed. acetaminophen 325 mg-caffeine 40 mg-butalbital 50 mg (FIORICET) per tablet Take 1 tablet by mouth every 6 hours if needed for headache. No more than 5 days per month. nicotine polacrilex (NICORETTE) 4 mg gum Take 1 Each by mouth as needed. Lactobacillus acidophilus (FLORAJEN ACIDOPHILUS) 20 billion cell capsule Take 1 capsule by mouth once daily. CPAP/BIPAP/OTHER Type .CPAPSettings into a note to see current settings/supplies/DME information. promethazine (PHENERGAN) 25 mg tablet Take 1 tablet by mouth every 6 hours as needed for nausea/vomiting. ipratropium 20 mcg-albuterol 100 mcg (COMBIVENT RESPIMAT) 20-100 mcg/actuation inhaler Inhale 1 Puff as instructed four times daily as needed for wheezing/shortness of breath. triamcinolone acetonide (NASACORT AQ) 55 mcg nasal inhaler Use 2 Sprays in the nose once daily as needed. fremanezumab-vfrm (AJOVY AUTOINJECTOR) 225 mg/1.5 mL auto-injector Inject 1.5 mL subcutaneously once every month. naratriptan (AMERGE) 2.5 mg tablet Take 1 tab at migraine onset. May repeat once in 2 hours if needed. meclizine (ANTIVERT) 25 mg tab take 1/2 to 1 tablet by mouth every 6 hours if needed for dizziness ondansetron orally disintegrating (ZOFRAN ODT) 4 mg disintegrating tablet Take 1 tablet by mouth every 6 hours as needed for nausea/vomiting. multivitamin (TAB-A-JESSICA) tablet Take 1 tablet by mouth once daily. EPINEPHrine (EPIPEN) 0.3 mg/0.3 mL auto-injector Inject subcutaneously. use as directed if needed after insect bite qravdsjz-mcaiiajnp-ogaylgtdkdcdxs (CORTISPORIN) otic solution Use 3 Drops in the ears four times daily. As directed albuterol HFA (VENTOLIN HFA) 90 mcg/actuation inhaler Inhale 2 Puffs as instructed every 4 hours as needed. bisacodyl EC (DULCOLAX, BISACODYL,) 5 mg EC tablet Take 1 tablet by mouth once daily as needed for constipation. polyethylene glycol 3350 17 gram/dose powder Take 17 g by mouth once daily. Dissolve dose in 4 - 8 ounces of liquid and take as directed. Benzonatate 200 mg capsule Take 1 capsule by mouth three times daily as needed. Cholecalciferol, Vitamin D3, 50 mcg (2,000 unit) cap Take 2 capsules by mouth once daily. lynsey (more content not included)... [facility] 12-15-2023 History of Present illness Narrative This note was created using [employer]. Subjective Sky Zamudio is a 53 year old female. Patient presents with: F/U 6 months SUBJECTIVE: Sky Zamudio is a 53 year old year old lady here today for 6 month follow up appointment for review of medical conditions. Son has liver failure--end stage. Might be on transplant list. Has history of Agustín's disease. Feels like nerves acting up. Will see counselor . Needs refill on Xanax. Last RX was April last year and 60 pills lasted since then. Lips feel numb most of the time past 2 to 3 days. Not sure of the trigger. CPAP machine was brought to DME supplier. They never called her back with replacement and this was over a year ago. Dropped off on [employer] in [place]. Leg numb on left lateral thigh since [facility] August 28 this year. Working with chiropractor. PAST MEDICAL HISTORY Diagnosis Date Abdominal pain, periumbilic Acute gastritis without mention of hemorrhage Atrophic vaginitis 07/14/2018 Bipolar disorder, unspecified (HCC) Chronic rhinitis Closed fracture of navicular (scaphoid) bone of foot 12/10/2011 Contact dermatitis and other eczema, due to unspecified cause Diaphragmatic hernia without mention of obstruction or gangrene Dysmenorrhea decreased Esophageal reflux Excessive or frequent menstruation Heavy periods resolved Irregular menstrual cycle Irregular periods Migraine headache Obesity, unspecified Other specified gastritis SLEEP APNEA NOS 12/12/2007 12-03-07: effic 87%, no stage III, AHI 5.5, REM 20.9, supine 3, snoring 98%-rec CPAP trial Stress incontinence Unspecified asthma(493.90) Unspecified symptom associated with female genital organs Current Outpatient Medications Medication Sig diclofenac (VOLTAREN) 1 % topical gel apply topically to affected area as directed if needed carBAMazepine XR (TEGRETOL XR) 100 mg 12 hr tablet Take 1 tablet by mouth two times a day. Combine with 200 mg twice daily for 300 mg twice daily dose. carBAMazepine XR (TEGRETOL XR) 200 mg 12 hr tablet Take 1 tablet by mouth two times a day. Add to 100 mg twice daily for 300 mg twice daily total dose. zolpidem (AMBIEN) 10 mg Take 1 tablet by mouth daily at bedtime for 90 days. Do not start before October 15, 2023. lansoprazole (PREVACID) 30 mg capsule take 1 capsule by mouth twice a day meloxicam (MOBIC) 15 mg tablet take 1 tablet by mouth once daily loratadine-pseudoephedrine ER (LORATA-D) 10-240 mg Tb24 Take 1 tablet by mouth once daily. cyclobenzaprine (FLEXERIL) 10 mg tablet Take 1 tablet by mouth three times a day as needed. acetaminophen 325 mg-caffeine 40 mg-butalbital 50 mg (FIORICET) per tablet Take 1 tablet by mouth every 6 hours if needed for headache. No more than 5 days per month. nicotine polacrilex (NICORETTE) 4 mg gum Take 1 Each by mouth as needed. Lactobacillus acidophilus (FLORAJEN ACIDOPHILUS) 20 billion cell capsule Take 1 capsule by mouth once daily. CPAP/BIPAP/OTHER Type .CPAPSettings into a note to see current settings/supplies/DME information. promethazine (PHENERGAN) 25 mg tablet Take 1 tablet by mouth every 6 hours as needed for nausea/vomiting. ipratropium 20 mcg-albuterol 100 mcg (COMBIVENT RESPIMAT) 20-100 mcg/actuation inhaler Inhale 1 Puff as instructed four times daily as needed for wheezing/shortness of breath. triamcinolone acetonide (NASACORT AQ) 55 mcg nasal inhaler Use 2 Sprays in the nose once daily as needed. fremanezumab-vfrm (AJOVY AUTOINJECTOR) 225 mg/1.5 mL auto-injector Inject 1.5 mL subcutaneously once every month. naratriptan (AMERGE) 2.5 mg tablet Take 1 tab at migraine onset. May repeat once in 2 hours if needed. meclizine (ANTIVERT) 25 mg tab take 1/2 to 1 tablet by mouth every 6 hours if needed for dizziness ondansetron orally disintegrating (ZOFRAN ODT) 4 mg disintegrating tablet Take 1 tablet by mouth every 6 hours as needed for nausea/vomiting. multivitamin (TAB-A-JESSICA) tablet Take 1 tablet by mouth once daily. EPINEPHrine (EPIPEN) 0.3 mg/0.3 mL auto-injector Inject subcutaneously. use as directed if needed after insect bite uwwxkcuu-qyhrcevir-eclkvschcacueh (CORTISPORIN) otic solution Use 3 Drops in the ears four times daily. As directed albuterol HFA (VENTOLIN HFA) 90 mcg/actuation inhaler Inhale 2 Puffs as instructed every 4 hours as needed. bisacodyl EC (DULCOLAX, BISACODYL,) 5 mg EC tablet Take 1 tablet by mouth once daily as needed for constipation. polyethylene glycol 3350 17 gram/dose powder Take 17 g by mouth once daily. Dissolve dose in 4 - 8 ounces of liquid and take as directed. Benzonatate 200 mg capsule Take 1 capsule by mouth three times daily as needed. Cholecalciferol, Vitamin D3, 50 mcg (2,000 unit) cap Take 2 capsules by mouth once daily. montelukast (SINGULAIR) 10 mg tablet Take 1 tablet by mouth daily at bedtime. terconazole (TERAZOL 7) 0.4 % vaginal cream Use 1 Applicator vaginally daily at bedtime. estrogens conjugated (PREMARIN) 0.3 mg tablet Take 0.3 mg by mouth. Taking 3 times per week. Prescribed by outside OB. hydroCHLOROthiazide (HYDRODIURIL, ESIDRIX) 25 mg tablet Take 1 tablet by mouth once daily as needed (fluid retention). No current facility-administered medications for this visit. Review of Systems Objective LMP 05/14/2015 Physical Exam Constitutional: Appearance: Normal appearance. HENT: Head: Normocephalic. Right Ear: Tympanic membrane, ear canal and external ear normal. Left Ear: Tympanic membrane, ear canal and external ear normal. Eyes: Conjunctiva/sclera: Conjunctivae normal. Cardiovascular: Rate and Rhythm: Normal rate and regular rhythm. Heart sounds: Normal heart sounds. Pulmonary: Effort: Pulmonary effort is normal. Breath sounds: Normal breath sounds. Musculoskeletal: Right lower leg: No edema. Left lower leg: No edema. Skin: General: Skin is warm and dry. Neurological: General: No focal deficit present. Mental Status: She is alert and oriented to person, place, and time. Psychiatric: Mood and Affect: Mood normal. Behavior: Behavior normal. Thought Content: Thought content normal. Judgment: Judgment normal. Last labs: Latest Ref Rng 02/08/2023 Protein, Total 6.3 - 8.0 g/dL 6.9 Albumin 3.9 - 4.9 g/dL 4.1 Calcium 8.5 - 10.2 mg/dL 9.5 Bilirubin, Total 0.2 - 1.3 mg/dL 0.3 Alkaline Phosphatase 34 - 123 U/L 167 (H) AST 13 - 35 U/L 15 ALT 7 - 38 U/L 19 Glucose 74 - 99 mg/dL 104 (H) BUN 7 - 21 mg/dL 12 Creatinine 0.58 - 0.96 mg/dL 0.73 Sodium 136 - 144 mmol/L 139 Potassium 3.7 - 5.1 mmol/L 4.7 Chloride 97 - 105 mmol/L 105 CO2 22 - 30 mmol/L 23 Anion Gap 9 - 18 mmol/L 11 eGFR >=60 mL/min/1.73m 99 WBC 3.70 - 11.00 k/uL 12.69 (H) RBC 3.90 - 5.20 m/uL 5.01 Hemoglobin 11.5 - 15.5 g/dL 14.8 Hematocrit 36.0 - 46.0 % 47.5 (H) MCV 80.0 - 100.0 fL 94.8 MCH 26.0 - 34.0 pg 29.5 MCHC 30.5 - 36.0 g/dL 31.2 RDW-CV 11.5 - 15.0 % 14.4 Platelet Count 150 - 400 k/uL 317 MPV 9.0 - 12.7 fL 10.7 Absolute nRBC <0.01 k/uL <0.01 Total Cholesterol, Nonfasting <200 mg/dL 214 (H) Triglycerides, Nonfasting <150 mg/dL 127 HDL Cholesterol, Nonfasting >39 mg/dL 60 LDL Cholesterol, Nonfasting <100 mg/dL 129 (H) Non HDL Cholesterol, Nonfasting <130 mg/dL 154 (H) VLDL Cholesterol, Nonfasting <30 mg/dL 25 Total Chol/HDL Ratio, Nonfasting <5.10 mg/dL 3.57 LDL/HDL Ratio, Nonfasting <2.54 mg/dL 2.15 Hemoglobin A1C 4.3 - 5.6 % 5.7 (H) Estimated Average Glucose mg/dL 117 Magnesium 1.7 - 2.3 mg/dL 2.2 Vitamin D 25 Hydroxy 31.0 - 80.0 ng/mL 41.4 TSH 0.270 - 4.200 mIU/L 2.210 Legend: (H) High CMP ordered by neurology. Assessment and Plan Encounter Diagnosis ICD-10-CM 1. Anxiety F41.9 MAGNESIUM COMPLETE BLOOD COUNT VITAMIN D 25 HYDROXY LIPID PANEL BASIC THYROID STIMULATING HORMONE HEMOGLOBIN A1C ALPRAZolam (XANAX) 0.5 mg tablet Noted stressors--will treat with prn Xanax as usual. 2. Insomnia, unspecified type G47.00 zolpidem (AMBIEN) 10 mg Ambien still helps. Needs to take nightly 3. Right ear pain H92.01 1 week; seems like fan going in house triggers pain this time every year 4. Vitamin D deficiency E55.9 VITAMIN D 25 HYDROXY Will update labs and adjust as needed 5. Elevated LDL cholesterol level E78.00 LIPID PANEL BASIC Update labs.; Noted last HDL romel good 6. Migraine without aura and without status migrainosus, not intractable G43.009 Follows with neuro. Has CMP ordered to get done before follow up with them 7. Reactive depression F32.9 Noted stressors that contribute to depression and anxiety.Continue cousenling and meds for axiety.Further eval and tx as needed 8. Encounter for long-term current use of medication Z79.899 MAGNESIUM COMPLETE BLOOD COUNT VITAMIN D 25 HYDROXY LIPID PANEL BASIC THYROID STIMULATING HORMONE HEMOGLOBIN A1C Cholecalciferol, Vitamin D3, 50 mcg (2,000 unit) cap Above issues addressed with patient. Patient involved in shared decision making for management of medical issues. History and medications reviewed. Epic updated as needed Refills and/or prescriptions taken care of and meds adjusted as indicated after reviewed history, exam and labs. Health Maintenance reviewed. Updated record and/or ordered tests as recorded. Encouraged on efforts at healthy diet and regular exercise and adequate sleep. I spent a total of 44 minutes on the date of the service which included preparing to see the patient, [id number] patient care, completing clinical documentation, obtaining and/or reviewing separately obtained history, performing a medically appropriate examination, counseling and educating the patient/family/caregiver, and ordering medications, tests, or procedures. Elliott Mahajan MD PHQ-9 Score: 14 (Moderate Depression) Continuing current treatment plan Going through counseling. Current on meds that can help with mood stabilizing. Also, on meds for anxiety. Further evaluation and treatment as indicated. documented in this encounter [facility] 12-15-2023 Note HNO ID: [id number] Author: ELLIOTT MAHAJAN MD Service: ? Author Type: Physician Type: Progress Notes Filed: 12/19/2023 00:24 Note Text: PHQ-9 Score: 14 (Moderate Depression) Continuing current treatment plan Going through counseling. Current on meds that can help with mood stabilizing. Also, on meds for anxiety. Further evaluation and treatment as indicated. [facility] 12-05-2023 Telephone encounter Note Spoke with patient and states is still having itching, especially at night. Had picked up suppositories at store which are partially effective for the discomfort. Still requesting RX for Diflucan to [facility]. Patient aware PCP out at this time and request will be forwarded to covering provider. Juliana Peck LPN [facility] 12-05-2023 Miscellaneous Notes Spoke with patient and states is still having itching, especially at night. Had picked up suppositories at store which are partially effective for the discomfort. Still requesting RX for Diflucan to [facility]. Patient aware PCP out at this time and request will be forwarded to covering provider. Juliana Peck LPN documented in this encounter [facility] 11-27-2023 Miscellaneous Notes [facility] has Loratadine-Pseudoephedrin RX ready for pickup. Patient has refills until 06/2024. Hailey Disla LPN documented in this encounter [facility] 11-19-2023 Miscellaneous Notes Patient was originally prescribed carbamazepine 300 mg BID for mood by psychiatry- refilled by Dr. Del Castillo last year. I advised patient to reestablish with psych for further refills. Last LFTs and sodium level were stable in February of 2023. Will refill for 90 days- I recommended patient reestablish w/ psych for further refills. If Dr. Del Castillo OK filling- patient will require updated CMP in February. Physician: Jsoe Call from patient requesting refill. Please E-Scribe Last office visit 07/17/23 with Jose virtual Next office visit 01/19/24 with Jose virtual Requested Prescriptions Pending Prescriptions Disp Refills carBAMazepine XR (TEGRETOL XR) 100 mg 12 hr tablet 180 tablet 3 Sig: Take 1 tablet by mouth two times a day. Combine with 200 mg twice daily for 300 mg twice daily dose. Pharmacy Name: [facility] documented in this encounter [facility] 10-15-2023 Miscellaneous Notes Spoke with pt and information listed below given. Pt verbalizes understanding. All messages below given. Syeda Barrett LPN Patient had refills from RX that was sent June but has not filled since September 09. . In case problems with RX at pharmacy, sent now with refills to last till next appointment. The following approved medication requests have been transmitted electronically. Requested Prescriptions Signed Prescriptions Disp Refills zolpidem (AMBIEN) 10 mg 30 tablet 2 Sig: Take 1 tablet by mouth daily at bedtime for 90 days. Do not start before October 15, 2023. Authorizing Provider: ELLIOTT MAHAJAN MD Let Patient know that [facility] has Prevacid 30mg RX on file, written 10/07/2023, x60 capsules, 2 refills. Also, Lactobacillus (Florajen) was written 05/09/2023, x30 cqapsules, 11 refills, pharmacy is getting ready for her to pickup. Patient has been identified by name and date of : Yes Patient phones for refill(s): Requested Prescriptions Pending Prescriptions Disp Refills zolpidem (AMBIEN) 10 mg 30 tablet 3 Sig: Take 1 tablet by mouth daily at bedtime for 120 days. Do not start before November 06, 2023. Date of last office visit in primary care: 06/09/2023 Date of next office visit in primary care: 12/15/2023 Please advise. Thank you. Hailey Disla LPN. documented in this encounter [facility] 10-07-2023 Miscellaneous Notes Patient has been identified by name and date of : Ricardo Patient phones for refill(s): Requested Prescriptions Pending Prescriptions Disp Refills lansoprazole (PREVACID) 30 mg capsule [Pharmacy Med Name: LANSOPRAZOLE DR 30 MG CAPSULE] 60 capsule 2 Sig: take 1 capsule by mouth twice a day Date of last office visit in primary care: 06/09/2023 Date of next office visit in primary care: 12/15/2023 Please advise. Thank you. Hailey Disla LPN. documented in this encounter [facility] 07-17-2023 Instructions Pastora Glynn APRN.TIMBER HAND - 07/17/2023 2:27 PM EST Avoiding Medication Overuse Headache (Rebound Headache): Based on current research, the types of medications and their frequency of use which converts a previously episodic headache (particularly migraine) into a chronic daily headache (any headache occurring 15 or more days per month for at least 4 hours per day) are as follows: ---> Over the counter medications, NSAIDS and combination analgesics: -More than 2 days per week, or more than 10 days per month. -These include medications such as Acetaminophen (Tylenol), Naproxen (Aleve), Ibuprofen (Advil, Motrin), Acetaminophen/Caffeine (Excedrin), Acetaminophen/Dichloralphenazone/Isome theptene (Midrin), Aspirin (ok to continue if taking for medical reasons), cold remedies and sleep-promoting agents, among others. ---> Triptans: -More than 2 days per week, or more than 10 days per month. -These include Sumatriptan (Imitrex), Sumatriptan/Naproxen (Treximet), Rizatriptan (Maxalt), Almotriptan (Axert), Zolmitriptan (Zomig), Eletriptan (Relpax), Naratriptan (Amerge), Frovatriptan (Frova). ---> Opiates/Opioids (Narcotics): -8 days or more per month. Some research suggests that even infrequent use of these medications makes migraine specific medications such as triptans and NSAIDs less effective. -These include any narcotics such as Acetaminophen/Hydrocodone (Vicodin), Acetaminophen/Oxycodone (Percocet), Acetaminophen/Propoxyhene (Darvocet), Acetaminophen/Codeine (Tylenol #3, #4), Tramadol (Ultram), Acetaminophen/Tramadol (Ultracet), Oxycodone (OxyContin), Hydromorphone (Dilaudid), Fentanyl, Butorphanol (Stadol), Morphine or any form of a Morphine derivative. ---> Butalbital containing medications: -5 or more days per month. As you can see, these are the worst offenders. -These include Acetaminophen/Butalbital/Caffeine (Fioricet, Esgic) Acetaminophen/Butalbital/Caffeine/Code ine (Fioricet with Codeine), Aspirin/Butalbital/Caffeine (Fiorinal), Aspirin/Butalbital/Caffeine/Codeine (Fiorinal with Codeine). documented in this encounter [facility] 07-17-2023 History of Present illness Narrative [facility] - Follow up Virtual Visit This visit was conducted as a virtual visit, with patient's permission, via Zoom. Patient location - [place], [place] Sky Zamudio was identified by name and and consented to the video evaluation and its limitations. Based on this evaluation it may be necessary for them to schedule a follow up evaluation with me or other neurologists for formal physical examination and if necessary,other studies. I have communicated my name and active licensure. The patient's identity and physical location were verified at the time of this visit. Either the patient or their legal event representative has been informed of the risks and benefits of -- and alternatives to -- treatment through a remote evaluation and consents to proceed with the evaluation remotely. Accompanied by: Self Primary Problem List: ACTIVE PROBLEM LIST Esophageal Reflux Chronic Rhinitis Bipolar Disorder, Unspecified (Hcc) Other Specified Disorder of Gallbladder Mild Persistent Asthma Without Complication Obesity, Unspecified Irritable Bowel Syndrome Carpal Tunnel Syndrome Allergic Rhinitis, Cause Unspecified Calcaneal Spur Anxiety State, Unspecified Equinus Deformity of Foot, Acquired Unspecified Sleep Apnea Migraine Headache Acute Gastritis Without Mention of Hemorrhage Dysmenorrhea Irregular Menstrual Cycle Female Stress Incontinence Cystocele, Midline Ventral Hernia Strain of Rectus Abdominis Muscle Abdominal Pain Body Mass Index 40.0-44.9, Adult (Hcc) Nausea and Vomiting Mixed Incontinence Chronic Migraine Without Aura, With Intractable Migraine, So Stated, With Status Migrainosus Intractable Chronic Migraine Without Aura and Without Status Migrainosus Medication Overuse Headache Rebound Headache Axillary Mass Vitamin D Deficiency Atrophic Vaginitis Chronic Daily Headache Status Migrainosus Migraine Without Aura and Without Status Migrainosus, Not Intractable Anxiety Insomnia Intractable Chronic Migraine Without Aura and With Status Migrainosus Dysuria Chief Complaint: Follow up Impression and Plan from last visit: 04/17/2023 w/ me IMPRESSION: Chronic migraine without aura without status migrainosus, not intractable (primary encounter diagnosis) Status migrainosus Sky Zamudio is a 53 year old year old female, with a history of history of bipolar, migraine without aura, obesity s/p gastric bypass, GABY, with chronic daily headaches consistent with chronic migraine following up today virtually for migraines. Their neurological examination is essentially normal at this visit although this is limited due to nature of telehealth. She has not had her Ajovy injection since the end of February. While on Ajovy regularly she typically gets about 3-4 less severe migraines a month along with 3-4 slight headaches/month. These are both easily aborted with use of naratriptan or Fioricet. She noticed that the week before her next injection is due there is an increase in migraines/headaches but are easily resolved with abortive therapies. She is about 8 days overdue for Ajovy due to prior authorization issues. She reports a migraine for the past six days associated with photophobia, phonophobia, N/V. She reports Dr. Del Castillo gave her dexamethasone in the past that helped her break a migraine cycle. PLAN: Continue Ajovy-will get PA Continue Tegretol 300 mg BID- she is making appointment with psychiatry to re-establish. Continue naratriptan <10 days per month Continue fioricet < 5 days per month Dexamethasone bridge therapy Interval Headache History: Since the last visit, the patient states that their headaches have improved. PA renewal was approved and she has restarted Ajovy. Her sister sent her an eye mask massager and it helps when she has migraine or a milder headache brought on by stress. Still taking naratriptan for rescue, occasionally needs to take a second dose. Uses fioricet if second dose of naratriptan does not abort migraine. Headache 1 Onset: 1995 Location: right, left, temporal and occipital Quality/Description: piercing/stabbing and throbbing Associated Symptoms: Photophobia: yes Phonophobia: yes Nausea: yes Vomiting: yes - occasionally Other symptoms: none Worse with activity: yes Number of migraine headache days/month: 4 Number of NON-migraine headache days/month: 2 Total Number of headache days/month: 6 Number of headache free days/month: 24 Duration of headaches with treatment: 5 hours Current preventive treatment: Ajovy Current abortive treatment: naritriptan Triggers: odors, weather changes and bright lights Onset of headache to peak: gradual Positional changes: no Most common time of day for headache to begin: anytime Aura: none Days missed from work or school in the last month: 0 days Headache status since the last visit: worse (since missing Ajovy) Lifestyle: Sleep: 6-8 Exercise: none Preventative: Ajovy Abortive: naratriptan, fioricet Medications effective? sometimes # of doses of abortive medications per month: naratriptan-8, fioricet-5 Analgesic Acetaminophen with codeine (Tylenol #3) Butalbital/acetaminophen/caffeine (Fioricet) Hydrocodone/Acetaminophen (Vicodin, [place]) Ketorolac (Toradol) Meloxicam (Mobic) Oxycodone/Acetaminophen (Percocet) Anti-Anxiety Diazepam (Valium) Anti-Convulsant Carbamazepine (Tegretol) Divalproex sodium (Depakote) Gabapentin (Neurontin) Lamotrigine (Lamictal) Topiramate (Topamax, Trokendi XL, Qudexy) Zonisamide (Zonegram) Anti-Depressant and Antipsychotic Amitriptyline (Elavil) Nortriptyline (Pamelor, Aventyl) Buspirone Antiemetics Ondansetron Prochlorperazine Promethazine Anti-Migraine Isometheptene/Acetaminophen/Dichloralp henazone (Midrin) Naratriptan (Amerge) Rizatriptan (Maxalt) Sumatriptan (Imitrex, Sumavel) Blood Pressure Verapamil (Verelan, Calan, Isoptin) Hydrochlorothiazide MABs Erenumab (Aimovig) Works for only 2 weeks and then wears off. Fremanezumab (Ajovy) Worked good but insurance stopped covering. GEPANTS Rimegepant (Nurtec) Muscle Relaxer Cyclobenzaprine (Flexeril) Tizanidine (Zanaflex) Sleep Aids Trazodone (Desyrel) Supplements Magnesium Other Medications Dexamethasone (Decadron) Methylprednisolone (Medrol) Prednisone Over the Counter Medications Acetaminophen/Aspirin/Caffeine (Excedrin, Goody s) Ibuprofen (Advil, Motrin) Naproxen sodium (Aleve) PAST MEDICAL HISTORY Diagnosis Date Abdominal pain, periumbilic Acute gastritis without mention of hemorrhage Atrophic vaginitis 07/14/2018 Bipolar disorder, unspecified (HCC) Chronic rhinitis Closed fracture of navicular (scaphoid) bone of foot 12/10/2011 Contact dermatitis and other eczema, due to unspecified cause Diaphragmatic hernia without mention of obstruction or gangrene Dysmenorrhea decreased Esophageal reflux Excessive or frequent menstruation Heavy periods resolved Irregular menstrual cycle Irregular periods Migraine headache Obesity, unspecified Other specified gastritis SLEEP APNEA NOS 12/12/200708: effic 87%, no stage III, AHI 5.5, REM 20.9, supine 3, snoring 98%-rec CPAP trial Stress incontinence Unspecified asthma(493.90) Unspecified symptom associated with female genital organs PAST SURGICAL HISTORY Procedure Laterality Date ADENOIDECTOMY PRIMARY <AGE 12 Adenoidectomy ANESTHESIA HERNIA REPAIR LOWER ABDOMEN NOS 01/31/2005 DELIVERY ONLY x 3 , low cervical CHOLECYSTECTOMY 03/05/2006 Cholecystectomy COLONOSCOPY 12/18/2022 COLONOSCOPY FLX DX W/COLLJ SPEC WHEN PFRMD 03/13/2005 Colonoscopy COLONOSCOPY FLX DX W/COLLJ SPEC WHEN PFRMD 04/28/2018 Colonoscopy COLSC FLX W/RMVL OF TUMOR POLYP LESION SNARE TQ 04/02/2016 ?mild colitis, tubular adenoma in rectal polyp - 5 year follow up EGD 12/18/2022 EGD TRANSORAL BIOPSY SINGLE/MULTIPLE 04/04/2010 mild gastritis ESOPHAGOGASTRODUODENOSCOPY TRANSORAL DIAGNOSTIC 03/13/2005 EGD ESOPHAGOGASTRODUODENOSCOPY TRANSORAL DIAGNOSTIC 09/14/2019 EGD HYSTERECTOMY HX 05/02/2015 with repair of incidental cystotomy HYSTEROSCOPY, DIAGNOSTIC (SEPARATE 06/21/2010 hysteroscopy D&C, Novasure LIG/TRNSXJ FLP TUBE ABDL/VAG APPR UNI/BI Tubal ligation NEUROPLASTY &/TRANSPOS MEDIAN NRV CARPAL TUNNE 06/04/2007 Carpal tunnel decomp right PAST SURGICAL HISTORY OF Abd hernia and mesh placement REPAIR INCISIONAL HERNIA 04/02/2005 with mesh - 3cm infraumbilical - 5cm below umbilicus- medium ventralex mesh SLING OPER STRES INCONTINENCE 05/02/2015 TONSILLECTOMY PRIMARY/SECONDARY <AGE 12 Tonsillectomy ALLERGIES Allergen Reactions Bactrim [Sulfametho* GI Upset complained of stomach cramps though had tolerated in the past Bees Floxin [Ofloxacin] interaction with valproic acid; caused bipolar exacerbation with depression ( bipolar low ) Ivp Dye [Iodine] Anaphylaxis Keflex [Cephalexin] Mental Status Change, Itching bipolar low at same time; not sure if from med; no rash was associated Mangoes Other environmental Smoke Shortness of Breath Topamax [Topiramate] Dizziness Ultram [Tramadol Hc* Other: See Comments Migraine headaches Cefdinir Itching Current Medications: lansoprazole (PREVACID) 30 mg capsule Take 1 capsule by mouth two times a day. zolpidem (AMBIEN) 10 mg Take 1 tablet by mouth daily at bedtime for 120 days. meloxicam (MOBIC) 15 mg tablet take 1 tablet by mouth once daily loratadine-pseudoephedrine ER (LORATA-D) 10-240 mg Tb24 Take 1 tablet by mouth once daily. cyclobenzaprine (FLEXERIL) 10 mg tablet Take 1 tablet by mouth three times a day as needed. acetaminophen 325 mg-caffeine 40 mg-butalbital 50 mg (FIORICET) per tablet Take 1 tablet by mouth every 6 hours if needed for headache. No more than 5 days per month. bisacodyl EC (DULCOLAX, BISACODYL,) 5 mg EC tablet Take 1 tablet by mouth once daily as needed for constipation. nicotine polacrilex (NICORETTE) 4 mg gum Take 1 Each by mouth as needed. Lactobacillus acidophilus (FLORAJEN ACIDOPHILUS) 20 billion cell capsule Take 1 capsule by mouth once daily. CPAP/BIPAP/OTHER Type .CPAPSettings into a note to see current settings/supplies/DME information. promethazine (PHENERGAN) 25 mg tablet Take 1 tablet by mouth every 6 hours as needed for nausea/vomiting. ipratropium 20 mcg-albuterol 100 mcg (COMBIVENT RESPIMAT) 20-100 mcg/actuation inhaler Inhale 1 Puff as instructed four times daily as needed for wheezing/shortness of breath. triamcinolone acetonide (NASACORT AQ) 55 mcg nasal inhaler Use 2 Sprays in the nose once daily as needed. fremanezumab-vfrm (AJOVY AUTOINJECTOR) 225 mg/1.5 mL auto-injector Inject 1.5 mL subcutaneously once every month. naratriptan (AMERGE) 2.5 mg tablet Take 1 tab at migraine onset. May repeat once in 2 hours if needed. meclizine (ANTIVERT) 25 mg tab take 1/2 to 1 tablet by mouth every 6 hours if needed for dizziness ondansetron orally disintegrating (ZOFRAN ODT) 4 mg disintegrating tablet Take 1 tablet by mouth every 6 hours as needed for nausea/vomiting. multivitamin (TAB-A-JESSICA) tablet Take 1 tablet by mouth once daily. EPINEPHrine (EPIPEN) 0.3 mg/0.3 mL auto-injector Inject subcutaneously. use as directed if needed after insect bite diclofenac (VOLTAREN) 1 % topical gel apply topically to affected area as directed if needed whoanpnz-bjoccsyvo-rkpfotmyjctdsg (CORTISPORIN) otic solution Use 3 Drops in the ears four times daily. As directed albuterol HFA (VENTOLIN HFA) 90 mcg/actuation inhaler Inhale 2 Puffs as instructed every 4 hours as needed. bisacodyl EC (DULCOLAX, BISACODYL,) 5 mg EC tablet Take 1 tablet by mouth once daily as needed for constipation. polyethylene glycol 3350 17 gram/dose powder Take 17 g by mouth once daily. Dissolve dose in 4 - 8 ounces of liquid and take as directed. Benzonatate 200 mg capsule Take 1 capsule by mouth three times daily as needed. Cholecalciferol, Vitamin D3, 50 mcg (2,000 unit) cap Take 2 capsules by mouth once daily. montelukast (SINGULAIR) 10 mg tablet Take 1 tablet by mouth daily at bedtime. carBAMazepine XR (TEGRETOL XR) 100 mg 12 hr tablet Take 1 tablet by mouth twice daily. Combine with 200 mg twice daily for 300 mg twice daily dose. carBAMazepine XR (TEGRETOL XR) 200 mg 12 hr tablet Take 1 tablet by mouth twice daily. Add to 100 mg twice daily for 300 mg twice daily total dose. terconazole (TERAZOL 7) 0.4 % vaginal cream Use 1 Applicator vaginally daily at bedtime. estrogens conjugated (PREMARIN) 0.3 mg tablet Take 0.3 mg by mouth. Taking 3 times per week. Prescribed by outside OB. hydroCHLOROthiazide (HYDRODIURIL, ESIDRIX) 25 mg tablet Take 1 tablet by mouth once daily as needed (fluid retention). I have reviewed the Health Status Assessment responses and discussed these with the patient: yes Pastora Glynn APRN.TIMBER HAND HEADACHE SCORES: Headache Questions 10/04/2022 04/17/2023 07/16/2023 ER visits since last office visit: 0 0 0 Hospital stays since last office visit 0 0 0 Limited ADLs in the last month: 1 7 0 Days missed from work or school in the last month: 0 2 0 Days headache pain free in the last month: 17 14 - Days per month with ALL of the following symptoms - decreased productivity, light sensitivity and nausea: 4 14 2 Initial improvement of headache after botox injection at last visit: Not applicable, I did not have a botox injection at my last visit Not applicable, I did not have a botox injection at my last visit Not applicable, I did not have a botox injection at my last visit PRN medication usage in the last month: 20 14 10 Patient impression of improvement since last visit: Much improved Much worse Much improved HIT-6 10/04/2022 04/17/2023 07/17/2023 HIT-6 55 (Moderate impact) 63 (Severe impact) 56 (Substantial impact) RAMONA - 2/7 SCORES 10/04/2022 04/17/2023 07/17/2023 RAMONA-2 Score 0 5 2 RAMONA-7 Score - 16 - Migraine Specific QOL - Higher scores indicate better HRQL 10/04/2022 04/17/2023 07/17/2023 Role Function-Restrictive Transformed Score (range: 0-100) 80 51.43 80 Role Function-Preventive Transformed Score (range: 0-100) 100 75 80 Emotional Function Transformed Score (range: 0-100) 93.33 66.67 80 PHQ-9 10/04/2022 04/17/2023 07/17/2023 Score 1 11 8 MRI Head/Brain - Last 2 Impressions MRI BRAIN WO CONTRAST Collected: 06/10/2011 8:49 AM (Final result) Labs to Review: No New Health Issues: No New Family History: No Review of Systems: Review of system: unchanged from the previous visit (sleep patterns, mood, energy, appetite, stress, exercising). Physical Examination: Vital Signs: No vital signs taken for this visit due to nature of virtual visit. General: well appearing, in no acute distress, alert Pain Behaviors: no pain behaviors observed Neurological: Mental Status: Alert and oriented to person, place and time. Affect is normal. Speech is spontaneous and fluent without dysarthria. Short and mcc memory, cognition and general fund of knowledge are good. Attention span and concentration are excellent. HEENT: Head is normocephalic and features were symmetric. Musculoskeletal: Patient able to sit up right in chair for entirety of visit. Cranial Nerves: III, IV, -EOMI: full. VII-face is symmetric without evidence of weakness. VIII-hearing intact. IMPRESSION: Chronic migraine without aura without status migrainosus, not intractable (primary encounter diagnosis) Sky Zamudio is a 53 year old year old female with a history of bipolar disorder, migraine without aura, obesity s/p gastric bypass, GABY, with chronic daily headaches consistent with chronic migraine. Their neurological examination is essentially normal at this visit although this is limited due to nature of telehealth. Her migraines have improved since restarting Ajovy after delay in medication due to PA renewal. Since restarting Ajovy, naratriptan has become more effective for rescue. Does not need fioricet often, only takes it a second dose of naratriptan is not effective. We discussed MOH limits, which she has not exceeded. PLAN: Continue ajovy for prevention Continue naratriptan and fioricet for rescue Prior Authorization: Sky Zamudio has been previously approved for Calcitonin Gene Related Peptide Monoclonal Antibody (CGRP MAB) (Fremanezumab). The patient has demonstrated the following: Patient reduction in overall migraine days: Yes Patient reduction in moderate-severe migraine days: Yes Individual has obtained clinical benefit deemed significant by individual or prescriber: Yes Patient's quality of life and ability to perform ADLs has improved: Yes We suggest the patient continue treatment with CGRP MAB Fremanezumab. The following preventative medications have been tried for three or more months without benefit: Anti-Convulsant Carbamazepine (Tegretol) Divalproex sodium (Depakote) Gabapentin (Neurontin) Lamotrigine (Lamictal) Topiramate (Topamax, Trokendi XL, Qudexy) Zonisamide (Zonegram) Anti-Depressant and Antipsychotic Amitriptyline (Elavil) Nortriptyline (Pamelor, Aventyl) Buspirone Blood Pressure Verapamil (Verelan, Calan, Isoptin) Hydrochlorothiazide MABs Erenumab (Aimovig) Works for only 2 weeks and then wears off. Fremanezumab (Ajovy) Worked good but insurance stopped covering. Supplements Magnesium The following abortive medications have been tried but require high frequency use which can lead to Medication Overuse Headache: Analgesic Acetaminophen with codeine (Tylenol #3) Butalbital/acetaminophen/caffeine (Fioricet) Hydrocodone/Acetaminophen (Vicodin, [place]) Ketorolac (Toradol) Meloxicam (Mobic) Oxycodone/Acetaminophen (Percocet) Anti-Anxiety Diazepam (Valium) Anti-Migraine Isometheptene/Acetaminophen/Dichloralp henazone (Midrin) Naratriptan (Amerge) Rizatriptan (Maxalt) Sumatriptan (Imitrex, Sumavel) GEPANTS Rimegepant (Nurtec) Over the Counter Medications Acetaminophen/Aspirin/Caffeine (Excedrin, Goody s) Ibuprofen (Advil, Motrin) Naproxen sodium (Aleve) HEADACHE MANAGEMENT: (You are the primary guardian of your health and headache. Keep track of all medications: This includes the reason for use, side effects and benefits.) MEDICATION TREATMENT: Medications to Start Taking None Headache education was done. Discussed lifestyle modification including increased oral hydration, decreased caffeine, exercise and stress management. Discussed treatment options including preventive and acute medications, natural supplements, and infusion therapy. Discussed medication overuse headache and to limit use of acute treatments to no more than 2 days/week or 10 days/month. Discussed medication side effects, adverse reactions and drug interactions. RESEARCH: None at this time Follow-up: 6 months Level of Service: Virtual Visit 20 minutes Pastora Glynn APRN.MIGUE Headache Section [facility] July 17, 2023 documented in this encounter [facility] 07-17-2023 Note HNO ID: [id number] Author: Pastora Glynn APRN.CNP Service: ? Author Type: Nurse Practitioner Type: Progress Notes Filed: 07/17/2023 2:28 PM Note Text: Headache Center - Follow up Virtual Visit This visit was conducted as a virtual visit, with patient's permission, via Zoom. Patient location - [place], [place] Sky Zamudio was identified by name and and consented to the video evaluation and its limitations. Based on this evaluation it may be necessary for them to schedule a follow up evaluation with me or other neurologists for formal physical examination and if necessary,other studies. I have communicated my name and active licensure. The patient's identity and physical location were verified at the time of this visit. Either the patient or their legal event representative has been informed of the risks and benefits of -- and alternatives to -- treatment through a remote evaluation and consents to proceed with the evaluation remotely. Accompanied by: Self Primary Problem List: ACTIVE PROBLEM LIST Esophageal Reflux Chronic Rhinitis Bipolar Disorder, Unspecified (Hcc) Other Specified Disorder of Gallbladder Mild Persistent Asthma Without Complication Obesity, Unspecified Irritable Bowel Syndrome Carpal Tunnel Syndrome Allergic Rhinitis, Cause Unspecified Calcaneal Spur Anxiety State, Unspecified Equinus Deformity of Foot, Acquired Unspecified Sleep Apnea Migraine Headache Acute Gastritis Without Mention of Hemorrhage Dysmenorrhea Irregular Menstrual Cycle Female Stress Incontinence Cystocele, Midline Ventral Hernia Strain of Rectus Abdominis Muscle Abdominal Pain Body Mass Index 40.0-44.9, Adult (Hcc) Nausea and Vomiting Mixed Incontinence Chronic Migraine Without Aura, With Intractable Migraine, So Stated, With Status Migrainosus Intractable Chronic Migraine Without Aura and Without Status Migrainosus Medication Overuse Headache Rebound Headache Axillary Mass Vitamin D Deficiency Atrophic Vaginitis Chronic Daily Headache Status Migrainosus Migraine Without Aura and Without Status Migrainosus, Not Intractable Anxiety Insomnia Intractable Chronic Migraine Without Aura and With Status Migrainosus Dysuria Chief Complaint: Follow up Impression and Plan from last visit: 04/17/2023 w/ me IMPRESSION: Chronic migraine without aura without status migrainosus, not intractable (primary encounter diagnosis) Status migrainosus Sky Zamudio is a 53 year old year old female, with a history of history of bipolar, migraine without aura, obesity s/p gastric bypass, GABY, with chronic daily headaches consistent with chronic migraine following up today virtually for migraines. Their neurological examination is essentially normal at this visit although this is limited due to nature of telehealth. She has not had her Ajovy injection since the end of February. While on Ajovy regularly she typically gets about 3-4 less severe migraines a month along with 3-4 slight headaches/month. These are both easily aborted with use of naratriptan or Fioricet. She noticed that the week before her next injection is due there is an increase in migraines/headaches but are easily resolved with abortive therapies. She is about 8 days overdue for Ajovy due to prior authorization issues. She reports a migraine for the past six days associated with photophobia, phonophobia, N/V. She reports Dr. Del Castillo gave her dexamethasone in the past that helped her break a migraine cycle. PLAN: Continue Ajovy-will get PA Continue Tegretol 300 mg BID- she is making appointment with psychiatry to re-establish. Continue naratriptan <10 days per month Continue fioricet < 5 days per month Dexamethasone bridge therapy Interval Headache History: Since the last visit, the patient states that their headaches have improved. PA renewal was approved and she has restarted Ajovy. Her sister sent her an eye mask massager and it helps when she has migraine or a milder headache brought on by stress. Still taking naratriptan for rescue, occasionally needs to take a second dose. Uses fioricet if second dose of naratriptan does not abort migraine. Headache 1 Onset: 1994 Location: right, left, temporal and occipital Quality/Description: piercing/stabbing and throbbing Associated Symptoms: Photophobia: yes Phonophobia: yes Nausea: yes Vomiting: yes - occasionally Other symptoms: none Worse with activity: yes Number of migraine headache days/month: 4 Number of NON-migraine headache days/month: 2 Total Number of headache days/month: 6 Number of headache free days/month: 24 Duration of headaches with treatment: 5 hours Current preventive treatment: Ajovy Current abortive treatment: naritriptan Triggers: odors, weather changes and bright lights Onset of headache to peak: gradual Positional changes: no Most common time of day for headache to begin: anyti (more content not included)... [facility] 07-15-2023 Miscellaneous Notes Patient has been identified by name and date of : Yes Requested Prescriptions Pending Prescriptions Disp Refills lansoprazole (PREVACID) 30 mg capsule 60 capsule 2 Sig: Take 1 capsule by mouth two times a day. RX INSTRUCTIONS: Patient aware RX will be sent to pharmacy. No need to notify patient. Patient last office visit: 06/20/23 Patient next office visit: 12/03/23 Ira Zambrano MA documented in this encounter [facility] 07-09-2023 Miscellaneous Notes Last office visit: 06/09/23 Next appointment scheduled: 12/03/2023 Patient phones requesting refills as follows: Requested Prescriptions Pending Prescriptions Disp Refills zolpidem (AMBIEN) 10 mg 30 tablet 3 Sig: Take 1 tablet by mouth daily at bedtime for 120 days. Please review and advise. Gely Miramontes LPN documented in this encounter [facility] 07-02-2023 Note HNO ID: [id number] Author: Hilda Edwards MD Service: ? Author Type: Physician Type: Progress Notes Filed: 07/02/2023 2:58 PM Note Text: FOLLOW UP VISIT Sky Zamudio 1970 REFERRING PHYSICIAN: Elliott Mahajan MD CHIEF COMPLAINT: Consult (Referred by PCP for colonoscopy consult d/t abdominal pain. Previous polyps with colonoscopy) HPI: The patient is a 48 year old female referred for endoscopy. Sky notes no current colon complaints The patient notes no history of upper GI complaints. Sky has undergone prior endoscopy. I performed colonoscopy in 2016. A small polyp was found in the rectum. The patient was noting change in bowel habits at that time. I performed random biopsies. Pathology returned as: FINAL DIAGNOSIS 1. Ileocecal valve, biopsy (A) - Focal active colitis. 2. Sigmoid colon, biopsy (B) - Colonic mucosa with underlying lymphoid aggregate. 3. Rectum, polyp, biopsy (C) - Fragments of tubular adenoma. JJR/henri 04/03/2016 Additionally, the patient noted a sense of fullness and slight discomfort in her anterior right axillary area. She had been noticing that for approximately 5 years when I saw her last year for this complaint. No specific abnormalities were noted. Mammogram was unremarkable at that time and ultrasound demonstrated of vague shadowing which I was not able to reproduce in the office. I recommended follow-up mammogram and ultrasound. For her specific axillary issue I last saw her on April 14, 2018. The patient still notes persistent discomfort in the right axillary area. At times she feels she can associate the discomfort with a palpable mass at other times she cannot feel the mass. The patient underwent ultrasound at [facility] which demonstrated a benign-appearing lymph node but now this lymph node had measured 1 cm when prayer lymph nodes in the region had measured half centimeter. The patient is quite concerned about this tenderness in her axilla because she states her mother had exploratory laparotomy and had metastatic lymph nodes and she is concerned this could be malignancy. She notes no breast masses and has no specific breast radiographic findings. Additionally the patient noted recent admission for bacterial pneumonia. She still has some coarse breath sounds on exam but denies shortness of breath or other difficulties. When I saw the patient in the office I performed office-based ultrasound but did not demonstrate the abnormality listed as a lymph node seen at the ultrasound at [facility]. I scheduled the patient for official ultrasound with marker clip placement if this was identified and then I would proceed with excision of the site. The patient presented for ultrasound and mammogram. No abnormalities were seen. IMPRESSION: NEGATIVE Patient presented for imaging guided presurgical localization with reflector placement of a finding described in the right axilla in the ultrasound exam dated 05/15/2023. After scanning the patient for a long time, the finding could not be reproduced. Repeat mammogram was also performed, showing no suspicious mammographic findings in the right breast and axilla, with overall fibroglandular pattern stable from multiple prior exams. Given imaging findings of lack of a real finding, the localization was not performed. Area in the right axilla was described as a lymph node, but the lymph node seen on today's exam is deeper in location and appears benign, unchanged from ultrasound exam from 2020. Patient has an ongoing complaining of focal pain in the right axilla, and had diagnostic imaging done for same reason back in 2015. Clinical follow up is recommended given pain. Patient mentioned that her pain could be related from previous fall. Patient is under the care of Dr. Hilda Edwards (I paged him today). There is no mammographic evidence of malignancy. The patient's planned/potential surgical case was canceled and the patient return for further discussion. PAST MEDICAL HISTORY Diagnosis Date Abdominal pain, periumbilic Acute gastritis without mention of hemorrhage Atrophic vaginitis 07/14/2018 Bipolar disorder, unspecified (HCC) Chronic rhinitis Closed fracture of navicular (scaphoid) bone of foot 12/10/2011 Contact dermatitis and other eczema, due to unspecified cause Diaphragmatic hernia without mention of obstruction or gangrene Dysmenorrhea decreased Esophageal reflux Excessive or frequent menstruation Heavy periods resolved Irregular menstrual cycle Irregular periods Migraine headache Obesity, unspecified Other specified gastritis SLEEP APNEA NOS 12/12/200712-02-08: effic 87%, no stage III, AHI 5.5, REM 20.9, supine 3, snoring 98%-rec CPAP trial Stress incontinence Unspecified asthma(493.90) Unspecified symptom associated with female genital organs PAST SURGICAL HISTORY Procedure Laterality Date AD (more content not included)... [facility] 06-27-2023 Miscellaneous Notes Patient rescheduled for 06/30/23. Debora Coffey LPN Case message to [facility] to cancel surgery. Contacted patient in regards to message below. Patient wishes to keep 07/15/2023 appointment with Jerry to discuss further Stephaniechucky Troncoso Apple Picking Supervisor Images from the original note were not included. Hilda Edwards MD [place], Liza D, MD Cc: P Wstr General Surgery Pool; P Wstr Surg Scheduling Pool The radiologists could not find suspicious lymph node. Please cancel her for surgery for this Friday Thanks Jhoan Trinh scheduled 06/26/2023 Trinh doctor of audiology order form faxed to [facility] [phone] Confirmation in scanned doc. [facility] to have radiologist review and call to schedule patient Stephanie Aba Apple Picking Supervisor 06/30/2023 right axillary ultrasound evaluation and Trinh clip placement EGAN Trinh order to be filled out by surgeon and be faxed to [facility] at [phone] Stephanie Troncoso Apple Picking Supervisor documented in this encounter [facility] 06-27-2023 Miscellaneous Notes Okayed Last office visit: 06/09/23 Next appointment scheduled: 12/03/2023 Patient phones requesting refills as follows: Requested Prescriptions Pending Prescriptions Disp Refills loratadine-pseudoephedrine ER (LORATA-D) 10-240 mg Tb24 30 tablet 11 Sig: Take 1 tablet by mouth once daily. Please review and advise. Gely Miramontes LPN documented in this encounter [facility] 06-27-2023 Miscellaneous Notes Josephed Patient has been identified by name and date of : Patient phones for refill(s): Requested Prescriptions Pending Prescriptions Disp Refills cyclobenzaprine (FLEXERIL) 10 mg tablet 30 tablet 5 Sig: Take 1 tablet by mouth three times a day as needed. Date of last office visit in primary care: 06/09/2023 Date of next office visit in primary care: 12/03/2023 Last 2 Encounter Wt Readings: Date: Wt: 06/17/2023 114.9 kg (253 lb 3.2 oz) 05/21/2023 116.1 kg (256 lb) Previous labs/tests for medication: Not applicable Please advise. Thank you. Sobia Real Ma. documented in this encounter [facility] 06-26-2023 Miscellaneous Notes Physician: Jose Call from patient requesting refill. Please E-Scribe Last office visit 04/17/23 with Jose virtual Next office visit 07/17/23 with Jose virtual Requested Prescriptions Pending Prescriptions Disp Refills acetaminophen 325 mg-caffeine 40 mg-butalbital 50 mg (FIORICET) per tablet 20 tablet 5 Sig: Take 1 tablet by mouth every 6 hours if needed for headache. No more than 5 days per month. Pharmacy Name: [facility] documented in this encounter [facility] 06-26-2023 Instructions Formatting of th is note might be different from the original. Verbal post procedure instructions were given to the patient. [facility] 06-26-2023 Note HNO ID: [id number] Author: Cony Maria Mammo Tech Service: ? Author Type: Quality Control Supervisor Type: Patient Education Filed: 06/26/2023 12:55 PM Note Text: Verbal post procedure instructions were given to the patient. [facility] 06-26-2023 Miscellaneous Notes Verbal post procedure instructions were given to the patient. documented in this encounter [facility] 06-21-2023 Note HNO ID: [id number] Author: Nidhi Arana MD Service: ? Author Type: Physician Type: Progress Notes Filed: 06/21/2023 7:48 AM Note Text: I reviewed this case with Dr. Edwards. Following axillary lymph node should be localized with 1 Trinh Hide Cleaner reflector: Right axilla, with no clip (never been biopsied). Ultrasound from [facility] dated 05.15.2023 is marked. Please note this is for planning purposes only and is not a billable event. [facility] 06-18-2023 Note HNO ID: [id number] Author: Hilda Edwards MD Service: ? Author Type: Physician Type: Progress Notes Filed: 06/18/2023 5:30 AM Note Text: HISTORY AND PHYSICAL Sky Saavedra Robb 1970 REFERRING PHYSICIAN: Elliott Mahajan MD CHIEF COMPLAINT: Consult (Referred by PCP for colonoscopy consult d/t abdominal pain. Previous polyps with colonoscopy) HPI: The patient is a 48 year old female referred for endoscopy. Sky notes no current colon complaints The patient notes no history of upper GI complaints. Sky has undergone prior endoscopy. I performed colonoscopy in 2016. A small polyp was found in the rectum. The patient was noting change in bowel habits at that time. I performed random biopsies. Pathology returned as: FINAL DIAGNOSIS 1. Ileocecal valve, biopsy (A) - Focal active colitis. 2. Sigmoid colon, biopsy (B) - Colonic mucosa with underlying lymphoid aggregate. 3. Rectum, polyp, biopsy (C) - Fragments of tubular adenoma. LANRE/henri 04/03/2016 Additionally, the patient noted a sense of fullness and slight discomfort in her anterior right axillary area. She had been noticing that for approximately 5 years when I saw her last year for this complaint. No specific abnormalities were noted. Mammogram was unremarkable at that time and ultrasound demonstrated of vague shadowing which I was not able to reproduce in the office. I recommended follow-up mammogram and ultrasound. For her specific axillary issue I last saw her on April 14, 2018. The patient still notes persistent discomfort in the right axillary area. At times she feels she can associate the discomfort with a palpable mass at other times she cannot feel the mass. The patient underwent ultrasound at [facility] which demonstrated a benign-appearing lymph node but now this lymph node had measured 1 cm when prayer lymph nodes in the region had measured half centimeter. The patient is quite concerned about this tenderness in her axilla because she states her mother had exploratory laparotomy and had metastatic lymph nodes and she is concerned this could be malignancy. She notes no breast masses and has no specific breast radiographic findings. Additionally the patient noted recent admission for bacterial pneumonia. She still has some coarse breath sounds on exam but denies shortness of breath or other difficulties. PAST MEDICAL HISTORY Diagnosis Date Abdominal pain, periumbilic Acute gastritis without mention of hemorrhage Atrophic vaginitis 07/14/2018 Bipolar disorder, unspecified (HCC) Chronic rhinitis Closed fracture of navicular (scaphoid) bone of foot 12/10/2011 Contact dermatitis and other eczema, due to unspecified cause Diaphragmatic hernia without mention of obstruction or gangrene Dysmenorrhea decreased Esophageal reflux Excessive or frequent menstruation Heavy periods resolved Irregular menstrual cycle Irregular periods Migraine headache Obesity, unspecified Other specified gastritis SLEEP APNEA NOS 12/12/2007 12-03-07: effic 87%, no stage III, AHI 5.5, REM 20.9, supine 3, snoring 98%-rec CPAP trial Stress incontinence Unspecified asthma(493.90) Unspecified symptom associated with female genital organs PAST SURGICAL HISTORY Procedure Laterality Date ADENOIDECTOMY PRIMARY Adenoidectomy ANESTHESIA HERNIA REPAIR LOWER ABDOMEN NOS 01/31/2005 DELIVERY ONLY x 3 , low cervical CHOLECYSTECTOMY 03/05/2006 Cholecystectomy COLONOSCOPY 12/18/2022 COLONOSCOPY FLX DX W/COLLJ SPEC WHEN PFRMD 03/13/2005 Colonoscopy COLONOSCOPY FLX DX W/COLLJ SPEC WHEN PFRMD 04/28/2018 Colonoscopy COLSC FLX W/RMVL OF TUMOR POLYP LESION SNARE TQ 04/02/2016 ?mild colitis, tubular adenoma in rectal polyp - 5 year follow up EGD 12/18/2022 EGD TRANSORAL BIOPSY SINGLE/MULTIPLE 04/04/2010 mild gastritis ESOPHAGOGASTRODUODENOSCOPY TRANSORAL DIAGNOSTIC 03/13/2005 EGD ESOPHAGOGASTRODUODENOSCOPY TRANSORAL DIAGNOSTIC 09/14/2019 EGD HYSTERECTOMY HX 05/02/2015 with repair of incidental cystotomy HYSTEROSCOPY, DIAGNOSTIC (SEPARATE 06/21/2010 hysteroscopy DANDC, Novasure LIG/TRNSXJ FLP TUBE ABDL/VAG APPR UNI/BI Tubal ligation NEUROPLASTY AND/TRANSPOS MEDIAN NRV CARPAL TUNNE 06/04/2007 Carpal tunnel decomp right PAST SURGICAL HISTORY OF Abd hernia and mesh placement REPAIR INCISIONAL HERNIA 04/02/2005 with mesh - 3cm infraumbilical - 5cm below umbilicus- medium ventralex mesh SLING OPER STRES INCONTINENCE 05/02/2015 TONSILLECTOMY PRIMARY/SECONDARY Tonsillectomy Current Outpatient Medications Medication Sig nicotine polacrilex (NICORETTE) 4 mg gum Take 1 Each by mouth as needed. Lactobacillus acidophilus (FLORAJEN ACIDOPHILUS) 20 billion cell capsule Take 1 capsule by mouth once daily. CPAP/BIPAP/OTHER Type .CPAPSettings into a note to see current settings/supplies/DME information. promethazine (PHENERGAN) 25 mg tablet (more content not included)... [facility] 06-18-2023 History of Present illness Narrative HISTORY AND PHYSICAL Sky Zamudio 1970 REFERRING PHYSICIAN: Elliott Mahajan MD CHIEF COMPLAINT: Consult (Referred by PCP for colonoscopy consult d/t abdominal pain. Previous polyps with colonoscopy) HPI: The patient is a 48 year old female referred for endoscopy. Sky notes no current colon complaints The patient notes no history of upper GI complaints. Sky has undergone prior endoscopy. I performed colonoscopy in 2016. A small polyp was found in the rectum. The patient was noting change in bowel habits at that time. I performed random biopsies. Pathology returned as: FINAL DIAGNOSIS 1. Ileocecal valve, biopsy (A) - Focal active colitis. 2. Sigmoid colon, biopsy (B) - Colonic mucosa with underlying lymphoid aggregate. 3. Rectum, polyp, biopsy (C) - Fragments of tubular adenoma. LANRE/henri 04/03/2016 Additionally, the patient noted a sense of fullness and slight discomfort in her anterior right axillary area. She had been noticing that for approximately 5 years when I saw her last year for this complaint. No specific abnormalities were noted. Mammogram was unremarkable at that time and ultrasound demonstrated of vague shadowing which I was not able to reproduce in the office. I recommended follow-up mammogram and ultrasound. For her specific axillary issue I last saw her on April 14, 2018. The patient still notes persistent discomfort in the right axillary area. At times she feels she can associate the discomfort with a palpable mass at other times she cannot feel the mass. The patient underwent ultrasound at [facility] which demonstrated a benign-appearing lymph node but now this lymph node had measured 1 cm when prayer lymph nodes in the region had measured half centimeter. The patient is quite concerned about this tenderness in her axilla because she states her mother had exploratory laparotomy and had metastatic lymph nodes and she is concerned this could be malignancy. She notes no breast masses and has no specific breast radiographic findings. Additionally the patient noted recent admission for bacterial pneumonia. She still has some coarse breath sounds on exam but denies shortness of breath or other difficulties. PAST MEDICAL HISTORY Diagnosis Date Abdominal pain, periumbilic Acute gastritis without mention of hemorrhage Atrophic vaginitis 07/14/2018 Bipolar disorder, unspecified (HCC) Chronic rhinitis Closed fracture of navicular (scaphoid) bone of foot 12/10/2011 Contact dermatitis and other eczema, due to unspecified cause Diaphragmatic hernia without mention of obstruction or gangrene Dysmenorrhea decreased Esophageal reflux Excessive or frequent menstruation Heavy periods resolved Irregular menstrual cycle Irregular periods Migraine headache Obesity, unspecified Other specified gastritis SLEEP APNEA NOS 12/12/2007 12-03-07: effic 87%, no stage III, AHI 5.5, REM 20.9, supine 3, snoring 98%-rec CPAP trial Stress incontinence Unspecified asthma(493.90) Unspecified symptom associated with female genital organs PAST SURGICAL HISTORY Procedure Laterality Date ADENOIDECTOMY PRIMARY <AGE 12 Adenoidectomy ANESTHESIA HERNIA REPAIR LOWER ABDOMEN NOS 01/31/2005 DELIVERY ONLY x 3 , low cervical CHOLECYSTECTOMY 03/05/2006 Cholecystectomy COLONOSCOPY 12/18/2022 COLONOSCOPY FLX DX W/COLLJ SPEC WHEN PFRMD 03/13/2005 Colonoscopy COLONOSCOPY FLX DX W/COLLJ SPEC WHEN PFRMD 04/28/2018 Colonoscopy COLSC FLX W/RMVL OF TUMOR POLYP LESION SNARE TQ 04/02/2016 ?mild colitis, tubular adenoma in rectal polyp - 5 year follow up EGD 12/18/2022 EGD TRANSORAL BIOPSY SINGLE/MULTIPLE 04/04/2010 mild gastritis ESOPHAGOGASTRODUODENOSCOPY TRANSORAL DIAGNOSTIC 03/13/2005 EGD ESOPHAGOGASTRODUODENOSCOPY TRANSORAL DIAGNOSTIC 09/14/2019 EGD HYSTERECTOMY HX 05/02/2015 with repair of incidental cystotomy HYSTEROSCOPY, DIAGNOSTIC (SEPARATE 06/21/2010 hysteroscopy D&C, Novasure LIG/TRNSXJ FLP TUBE ABDL/VAG APPR UNI/BI Tubal ligation NEUROPLASTY &/TRANSPOS MEDIAN NRV CARPAL TUNNE 06/04/2007 Carpal tunnel decomp right PAST SURGICAL HISTORY OF Abd hernia and mesh placement REPAIR INCISIONAL HERNIA 04/02/2005 with mesh - 3cm infraumbilical - 5cm below umbilicus- medium ventralex mesh SLING OPER STRES INCONTINENCE 05/02/2015 TONSILLECTOMY PRIMARY/SECONDARY <AGE 12 Tonsillectomy Current Outpatient Medications Medication Sig nicotine polacrilex (NICORETTE) 4 mg gum Take 1 Each by mouth as needed. Lactobacillus acidophilus (FLORAJEN ACIDOPHILUS) 20 billion cell capsule Take 1 capsule by mouth once daily. CPAP/BIPAP/OTHER Type .CPAPSettings into a note to see current settings/supplies/DME information. promethazine (PHENERGAN) 25 mg tablet Take 1 tablet by mouth every 6 hours as needed for nausea/vomiting. ipratropium 20 mcg-albuterol 100 mcg (COMBIVENT RESPIMAT) 20-100 mcg/actuation inhaler Inhale 1 Puff as instructed four times daily as needed for wheezing/shortness of breath. triamcinolone acetonide (NASACORT AQ) 55 mcg nasal inhaler Use 2 Sprays in the nose once daily as needed. fremanezumab-vfrm (AJOVY AUTOINJECTOR) 225 mg/1.5 mL auto-injector Inject 1.5 mL subcutaneously once every month. naratriptan (AMERGE) 2.5 mg tablet Take 1 tab at migraine onset. May repeat once in 2 hours if needed. acetaminophen 325 mg-caffeine 40 mg-butalbital 50 mg (FIORICET) per tablet Take 1 tablet by mouth every 6 hours if needed for headache. No more than 5 days per month. meclizine (ANTIVERT) 25 mg tab take 1/2 to 1 tablet by mouth every 6 hours if needed for dizziness ondansetron orally disintegrating (ZOFRAN ODT) 4 mg disintegrating tablet Take 1 tablet by mouth every 6 hours as needed for nausea/vomiting. multivitamin (TAB-A-JESSICA) tablet Take 1 tablet by mouth once daily. EPINEPHrine (EPIPEN) 0.3 mg/0.3 mL auto-injector Inject subcutaneously. use as directed if needed after insect bite diclofenac (VOLTAREN) 1 % topical gel apply topically to affected area as directed if needed meloxicam (MOBIC) 15 mg tablet take 1 tablet by mouth once daily wncbejzt-stgxixejn-vvaipkdavzkvgx (CORTISPORIN) otic solution Use 3 Drops in the ears four times daily. As directed albuterol HFA (VENTOLIN HFA) 90 mcg/actuation inhaler Inhale 2 Puffs as instructed every 4 hours as needed. bisacodyl EC (DULCOLAX, BISACODYL,) 5 mg EC tablet Take 1 tablet by mouth once daily as needed for constipation. lansoprazole (PREVACID) 30 mg capsule Take 1 capsule by mouth twice daily. polyethylene glycol 3350 17 gram/dose powder Take 17 g by mouth once daily. Dissolve dose in 4 - 8 ounces of liquid and take as directed. Benzonatate 200 mg capsule Take 1 capsule by mouth three times daily as needed. Cholecalciferol, Vitamin D3, 50 mcg (2,000 unit) cap Take 2 capsules by mouth once daily. montelukast (SINGULAIR) 10 mg tablet Take 1 tablet by mouth daily at bedtime. cyclobenzaprine (FLEXERIL) 10 mg tablet Take 1 tablet by mouth three times daily as needed. carBAMazepine XR (TEGRETOL XR) 100 mg 12 hr tablet Take 1 tablet by mouth twice daily. Combine with 200 mg twice daily for 300 mg twice daily dose. carBAMazepine XR (TEGRETOL XR) 200 mg 12 hr tablet Take 1 tablet by mouth twice daily. Add to 100 mg twice daily for 300 mg twice daily total dose. loratadine-pseudoephedrine ER (LORATA-D) 10-240 mg Tb24 Take 1 tablet by mouth once daily. terconazole (TERAZOL 7) 0.4 % vaginal cream Use 1 Applicator vaginally daily at bedtime. estrogens conjugated (PREMARIN) 0.3 mg tablet Take 0.3 mg by mouth. Taking 3 times per week. Prescribed by outside OB. hydroCHLOROthiazide (HYDRODIURIL, ESIDRIX) 25 mg tablet Take 1 tablet by mouth once daily as needed (fluid retention). bisacodyl EC (DULCOLAX, BISACODYL,) 5 mg EC tablet Take 1 tablet by mouth once daily as needed for constipation. zolpidem (AMBIEN) 10 mg Take 1 tablet by mouth daily at bedtime for 120 days. No current facility-administered medications for this visit. ALLERGIES: Bactrim [Sulfamethoxazole-Trimethoprim], Bees, Floxin [Ofloxacin], Ivp Dye [Iodine], Keflex [Cephalexin], Mangoes, Other, Smoke, Topamax [Topiramate], Ultram [Tramadol Hcl], and Cefdinir PERSONAL HISTORY: Social History Tobacco Use Smoking status: Former Types: Cigars Start date: 05/04/2023 Smokeless tobacco: Never Tobacco comments: smokes 4 Clove cigars daily. Vaping Use Vaping Use: Some days Substances: THC Substance Use Topics Alcohol use: Yes Comment: once a month Drug use: Yes Types: Marijuana Comment: Lots of coffee per day/uses marijuana when pain gets severe FAMILY HISTORY: FAMILY HISTORY Problem Relation Age of Onset other (bipolar) Mother Arthritis Mother other (den disc disease) Father Dementia Father other (bipolar) Brother asthma other (crohns) Brother other (Migraine) Brother Diabetes Maternal Grandmother Heart Maternal Grandmother other (Agustín's disease) Daughter other (Agustín's Disease) Son other (Agustín's Disease) Son other (Bipolar) Son Breast Cancer Other Maternal Cousin REVIEW OF SYMPTOMS: The review of systems data was entered by the nurse and reviewed by me Nursing Notes: Theresa Houston LPN 06/17/2023 3:21 PM Signed REVIEW OF SYSTEMS: General: The patient NOTES fatigue, NOTES weight loss, denies weight gain, denies feeling hot, and denies feelings of cold. Eyes: The patient denies glaucoma, denies eye injury/surgery, wears glasses or contacts. Ear/Nose/Throat: The patient NOTES allergies, denies hayfever, denies ear infections, and denies bloody noses. Cardiovascular: The patient denies chest pain, denies heart disease, denies high blood pressure,denies cardiac stent, denies prior heart attack, denies irregular heart beat, denies high cholesterol, denies poor circulation, denies heart failure, other cardiac issues, denies claudication, denies cold feet, denies peripheral arterial stent. Respiratory: The patient denies tuberculosis, NOTES pneumonia, denies frequent cough, denies pulmonary embolism, NOTES shortness of breath, and denies coughing up blood, NOTES asthma Gastrointestinal: The patient denies difficulty swallowing, NOTES acid reflux, denies ulcers, denies vomiting, denies jaundice/hepatitis, denies gallbladder problems, denies black or tarry stools, denies hemorrhoids, denies bleeding from rectum, denies diverticulitis, NOTES constipation, denies diarrhea, denies loss of stool control, and denies hernias. Kidney/Bladder: The patient denies kidney stones, NOTES urine infections, and denies bloody urine. Skin: The patient denies a history of skin cancer, denies bleeding/changing moles, and denies a history of skin rash. Neurologic: The patient denies a history of epilepsy/convulsions, NOTES headaches, denies head/spinal injuries, and denies stroke/TIA. Psychiatric: The patient denies psychiatric medications, NOTES depression, and denies voices, denies substance abuse. Endocrine: The patient denies thyroid disorders, denies diabetes, and denies hormonal problems. Hematologic: The patient denies a history of bruising, denies bleeding, and denies anemia, denies blood clots. Infections: The patient denies a history of measles and mumps, denies rheumatic fever, and denies sexually transmitted diseases. Musculoskeletal: The patient denies back pain/injury, NOTES back problems, denies sciatica, NOTES knee/foot trouble, denies arthritis, or denies gout. When was patient's last Mammogram screening? 2022 Last Colonoscopy: 2022 Theresa Houston LPN PHYSICAL EXAMINATION: General: The patient is 48 year old female, well nourished, well hydrated in no acute distress. The patient is oriented to time, place, and person. VITALS: Blood pressure 138/82, pulse 116, temperature 36.3 C (97.4 F), height 162.6 cm (5' 4 ), weight 114.9 kg (253 lb 3.2 oz), last menstrual period 05/14/2015, SpO2 96 %. Body mass index is 43.46 kg/m . HEENT: Normal cephalic, ataumatic, pupils are equally round, sclera are anicteric, mucous membranes are moist, oropharynx is clear. Neck has no masses, asymmetry or lymphadenopathy. Thyroid is unremarkable. Respiratory: Few coarse breath sounds bilaterally, good air movement normal respiratory excursion and pattern. Cardiac: Examination is regular rate and rhythm. Abdominal exam: Soft, nontender, with no palpable masses. No hepatosplenomegaly. No palpable hernias. Rectal exam: exam deferred Extremities: no clubbing, cyanosis or edema. No adenopathy. Other: Visual inspection reveals no skin changes, dimpling, retractions or nipple inversion. Bilateral breast exam demonstrates benign small mobile nodules without suspicious findings. Left axillary exam is unremarkable. Right axillary exam again demonstrates some tenderness at the low right anterior axilla without palpable abnormalities. Ultrasound evaluation that area demonstrates no abnormalities. LABORATORY VALUES: As Noted RADIOLOGIC STUDIES: As Noted I performed ultrasound of the axillary region and could not demonstrate the lymph node identified by official ultrasonography at [facility]. Assessment IMPRESSION: right axillary/breast tail area PLAN: I obtained a chest x-ray which is unremarkable. I discussed with the patient the options given the fact that she feels persistent discomfort in her left axilla and now has an ultrasound report that demonstrates a lymph node is growing although is not suspicious in appearance. I gave the patient the options of observation versus ultrasound-guided core biopsy versus Trinh clip placement and excision. Given patient's anxiety concerning her mother's diagnosis she would prefer that if this lymph node can be localized by radiology and she feels this is the site of her discomfort that a Trinh clip be placed and I perform an excisional biopsy of her right axillary lymph node. I feel this is reasonable. Anticipated Surgical Procedure/ CPT Code: 57968-225 - Deep Axillary Lymph Node Biopsy -with Trinh localization of lymph node preoperatively Anticipated Anesthetic: General Patient weight: Blood pressure 138/82, pulse 116, temperature 36.3 C (97.4 F), height 162.6 cm (5' 4 ), weight 114.9 kg (253 lb 3.2 oz), last menstrual period 05/14/2015, SpO2 96 %. BMI: Body mass index is 43.46 kg/m . Planned antibiotic: clindamycin 900mg IVPB decoration checker to OR SCDs needed: Yes Slasher Sawyer Needed: Yes Pre Op Clearance: None Anticoagulation: No Diabetic: No Location: [facility] Diagnoses: (J15.9) Bacterial pneumonia (primary encounter diagnosis) (R22.31) Axillary mass, right My findings have been communicated to Dr. Elliott Mahajan MD via shared medical record. This note will be forwarded to Dr. Elliott Mahajan MD. Return to Clinic: The patient is instructed to follow-up with me after the testing has been completed. Hilda Edwards MD documented in this encounter [facility] 06-17-2023 History of Present illness Narrative Radiology Service Progress Note PATIENT NAME: Sky Zamudio DATE OF SERVICE: June 17, 2023 TIME: 4:39 PM PATIENT IDENTITY VERIFICATION COMPLETED USING TWO (2) IDENTIFIERS: Name and Date of confirmed by patient verbally. FALL SCREENING: Has the patient had 2 falls in the last year or 1 fall with injury or currently using an Ambulatory Assistive Device (Walker, Cane, Wheelchair, Crutches, etc.)? No PATIENT GENDER DATA: Female. status: : No status: NO. PATIENT RELEVANT IMPLANT DATA REVIEWED: Not Applicable RADIOLOGY DEPARTMENT: General X-ray: Exam(s) Completed: Chest X-Ray PERIPHERAL IV DATA: Not applicable SIGNED BY: RT Giovany(R) June 17, 2023 4:39 PM documented in this encounter [facility] 06-17-2023 Note HNO ID: [id number] Author: Bhumika Jacob RT(Keri) Service: Radiology Author Type: Technologist Type: Progress Notes Filed: 06/17/2023 4:45 PM Note Text: Radiology Service Progress Note PATIENT NAME: Sky Zamudio DATE OF SERVICE: June 17, 2023 TIME: 4:39 PM PATIENT IDENTITY VERIFICATION COMPLETED USING TWO (2) IDENTIFIERS: Name and Date of confirmed by patient verbally. FALL SCREENING: Has the patient had 2 falls in the last year or 1 fall with injury or currently using an Ambulatory Assistive Device (Walker, Cane, Wheelchair, Crutches, etc.)? No PATIENT GENDER DATA: Female. status: : No status: NO. PATIENT RELEVANT IMPLANT DATA REVIEWED: Not Applicable RADIOLOGY DEPARTMENT: General X-ray: Exam(s) Completed: Chest X-Ray PERIPHERAL IV DATA: Not applicable SIGNED BY: RT Giovany(R) June 17, 2023 4:39 PM [facility] 06-17-2023 Nurse Note REVIEW OF SYSTEMS: General: The patient NOTES fatigue, NOTES weight loss, denies weight gain, denies feeling hot, and denies feelings of cold. Eyes: The patient denies glaucoma, denies eye injury/surgery, wears glasses or contacts. Ear/Nose/Throat: The patient NOTES allergies, denies hayfever, denies ear infections, and denies bloody noses. Cardiovascular: The patient denies chest pain, denies heart disease, denies high blood pressure,denies cardiac stent, denies prior heart attack, denies irregular heart beat, denies high cholesterol, denies poor circulation, denies heart failure, other cardiac issues, denies claudication, denies cold feet, denies peripheral arterial stent. Respiratory: The patient denies tuberculosis, NOTES pneumonia, denies frequent cough, denies pulmonary embolism, NOTES shortness of breath, and denies coughing up blood, NOTES asthma Gastrointestinal: The patient denies difficulty swallowing, NOTES acid reflux, denies ulcers, denies vomiting, denies jaundice/hepatitis, denies gallbladder problems, denies black or tarry stools, denies hemorrhoids, denies bleeding from rectum, denies diverticulitis, NOTES constipation, denies diarrhea, denies loss of stool control, and denies hernias. Kidney/Bladder: The patient denies kidney stones, NOTES urine infections, and denies bloody urine. Skin: The patient denies a history of skin cancer, denies bleeding/changing moles, and denies a history of skin rash. Neurologic: The patient denies a history of epilepsy/convulsions, NOTES headaches, denies head/spinal injuries, and denies stroke/TIA. Psychiatric: The patient denies psychiatric medications, NOTES depression, and denies voices, denies substance abuse. Endocrine: The patient denies thyroid disorders, denies diabetes, and denies hormonal problems. Hematologic: The patient denies a history of bruising, denies bleeding, and denies anemia, denies blood clots. Infections: The patient denies a history of measles and mumps, denies rheumatic fever, and denies sexually transmitted diseases. Musculoskeletal: The patient denies back pain/injury, NOTES back problems, denies sciatica, NOTES knee/foot trouble, denies arthritis, or denies gout. When was patient's last Mammogram screening? 2022 Last Colonoscopy: 2022 Theresa Houston LPN documented in this encounter [facility] 06-09-2023 Note HNO ID: [id number] Author: Elliott Mahajan MD Service: ? Author Type: Physician Type: Progress Notes Filed: 06/09/2023 10:40 PM Note Text: This note was created using [employer] Guides[employer]. Subjective Sky Zamudio is a 53 year old female. Patient presents with: F/U 6 months SUBJECTIVE: Sky Zamudio is a 53 year old year old lady here today for 6 month follow up appointment for review of medical conditions. States has not been using CPAP the past year. States that was changing setting in middle of the night. [place] like throat was raw in middle of AM. Would reset but the next night would change in middle of night. Was taken by [facility] and was never returned. They were supposed to fix it or replace the unit. Wakes up tired. Does need CPAP replaced. Told to discuss with [facility] if will need to repeat sleep study.States that had PSG done years ago at [facility]. Also needs to determine where to get new CPAP (DME supplier). States that had pneumonia and rhinovirus. Was quarantined because of the illness. Still has cough productive for green phlegm. Finished antibiotic last week. 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 Noted has yeast infection after completing antibiotic courses. Was treated for yeast infection during course of antibiotics. PAST MEDICAL HISTORY Diagnosis Date Abdominal pain, periumbilic Acute gastritis without mention of hemorrhage Atrophic vaginitis 07/14/2018 Bipolar disorder, unspecified (HCC) Chronic rhinitis Closed fracture of navicular (scaphoid) bone of foot 12/10/2011 Contact dermatitis and other eczema, due to unspecified cause Diaphragmatic hernia without mention of obstruction or gangrene Dysmenorrhea decreased Esophageal reflux Excessive or frequent menstruation Heavy periods resolved Irregular menstrual cycle Irregular periods Migraine headache Obesity, unspecified Other specified gastritis SLEEP APNEA NOS 12/12/2007 12-03-07: effic 87%, no stage III, AHI 5.5, REM 20.9, supine 3, snoring 98%-rec CPAP trial Stress incontinence Unspecified asthma(493.90) Unspecified symptom associated with female genital organs Current Outpatient Medications Medication Sig Lactobacillus acidophilus (FLORAJEN ACIDOPHILUS) 20 billion cell capsule Take 1 capsule by mouth once daily. CPAP/BIPAP/OTHER Type .CPAPSettings into a note to see current settings/supplies/DME information. promethazine (PHENERGAN) 25 mg tablet Take 1 tablet by mouth every 6 hours as needed for nausea/vomiting. ipratropium 20 mcg-albuterol 100 mcg (COMBIVENT RESPIMAT) 20-100 mcg/actuation inhaler Inhale 1 Puff as instructed four times daily as needed for wheezing/shortness of breath. triamcinolone acetonide (NASACORT AQ) 55 mcg nasal inhaler Use 2 Sprays in the nose once daily as needed. fremanezumab-vfrm (AJOVY AUTOINJECTOR) 225 mg/1.5 mL auto-injector Inject 1.5 mL subcutaneously once every month. naratriptan (AMERGE) 2.5 mg tablet Take 1 tab at migraine onset. May repeat once in 2 hours if needed. acetaminophen 325 mg-caffeine 40 mg-butalbital 50 mg (FIORICET) per tablet Take 1 tablet by mouth every 6 hours if needed for headache. No more than 5 days per month. meclizine (ANTIVERT) 25 mg tab take 1/2 to 1 tablet by mouth every 6 hours if needed for dizziness ondansetron orally disintegrating (ZOFRAN ODT) 4 mg disintegrating tablet Take 1 tablet by mouth every 6 hours as needed for nausea/vomiting. multivitamin (TAB-A-JESSICA) tablet Take 1 tablet by mouth once daily. EPINEPHrine (EPIPEN) 0.3 mg/0.3 mL auto-injector Inject subcutaneously. use as directed if needed after insect bite diclofenac (VOLTAREN) 1 % topical gel apply topically to affected area as directed if needed meloxicam (MOBIC) 15 mg tablet take 1 tablet by mouth once daily ehbrkvza-swixkxnkc-kvyjowzkniituw (CORTISPORIN) otic solution Use 3 Drops in the ears four times daily. As directed albuterol HFA (VENTOLIN HFA) 90 mcg/actuation inhaler Inhale 2 Puffs as instructed every 4 hours as needed. bisacodyl EC (DULCOLAX, BISACODYL,) 5 mg EC tablet Take 1 tablet by mouth once daily as needed for constipation. lansoprazole (PREVACID) 30 mg capsule Take 1 capsule by mouth twice daily. polyethylene glycol 3350 17 gram/dose powder Take 17 g by mouth once daily. Dissolve dose in 4 - 8 ounces of liquid and take as directed. Benzonatate 200 mg capsule Take 1 capsule by mouth three times daily as needed. Cholecalciferol, Vitamin D3, 50 mcg (2,000 unit) cap Take 2 capsules by mouth once daily. montelukast (SINGULAIR) 10 mg tablet Take 1 tablet by mouth daily at bedtime. cyclobenzaprine (FLEXERIL) 10 mg tablet Take 1 tablet by mouth three times daily as needed. carBAMazepine XR (TEGRETOL XR) 100 mg 12 hr tablet Take 1 tablet by mouth twice daily. Combine with 200 mg twice daily for 300 mg twice daily dose. carBAMazepine XR (TEGRETOL XR) 200 mg 12 hr tablet Take 1 ta (more content not included)... [facility] 05-29-2023 Miscellaneous Notes Images from the original note were not included. Hilda Edwards MD Pantea, Kathleen LPN; [facility] General Surgery Pool 15 hours ago (7:22 PM) The mammogram was unremarkable and the ultrasound demonstrated a small benign-appearing lymph node in the right axilla. If she would like more information on this she should follow-up in the office going over the images in person. Thelma Called and updated patient via voicemail, patient identified self on machine. Debora Coffey LPN Patient calling and states images are available of her mammogram and ultrasound from 05/15 at [facility]. She was told they need follow up and wanted to be sure Dr. Edwards had reviewed? Please advise. Genoveva Guadarrama LPN documented in this encounter [facility] 05-23-2023 History of Present illness Narrative Radiology Service Progress Note PATIENT NAME: Sky Zamudio DATE OF SERVICE: May 23, 2023 TIME: 2:27 PM PATIENT IDENTITY VERIFICATION COMPLETED USING TWO (2) IDENTIFIERS: Name and Date of confirmed by patient verbally. FALL SCREENING: Has the patient had 2 falls in the last year or 1 fall with injury or currently using an Ambulatory Assistive Device (Walker, Cane, Wheelchair, Crutches, etc.)? No PATIENT GENDER DATA: Female. status: : No status: NO. PATIENT RELEVANT IMPLANT DATA REVIEWED: Not Applicable RADIOLOGY DEPARTMENT: General X-ray: Exam(s) Completed: Chest X-Ray PERIPHERAL IV DATA: Not applicable SIGNED BY: RT Giovany(R) May 23, 2023 2:27 PM documented in this encounter [facility] 05-21-2023 Instructions Molly Simpson APRN.TIMBER HAND - 05/21/2023 2:43 PM EDT Do chest xray on the . Take diflucan today, start Levaquin tomorrow, take 2nd diflucan after antibiotic done. documented in this encounter [facility] 05-21-2023 History of Present illness Narrative SUBJECTIVE Sky Zamudio is a 53 year old female here today for acute concern. Chief Complaint Patient presents with: Cough: X 2 days Pain: Right x 2 days HPI Sky Zamudio is a 53 year old female. Here today for concerns of cough, sputum, ear pain of the right ear. Some shortness of breath with activity. Increased phlegm. No wheezing, that has improved. Recently hospitalized for pneumonia. Issues with Omnicef so treated with doxycycline. Also prior issues with keflex, bactrim. Now has a yeast infection from recent antibiotic use. Her medications were reviewed today and her list is now up to date. Medications Current Outpatient Medications Medication Sig acetaminophen 325 mg-caffeine 40 mg-butalbital 50 mg (FIORICET) per tablet Take 1 tablet by mouth every 6 hours if needed for headache. No more than 5 days per month. albuterol HFA (VENTOLIN HFA) 90 mcg/actuation inhaler Inhale 2 Puffs as instructed every 4 hours as needed. ALPRAZolam (XANAX) 0.5 mg tablet Take 1 tablet by mouth two times a day as needed for anxiety for up to 30 days. Benzonatate 200 mg capsule Take 1 capsule by mouth three times daily as needed. bisacodyl EC (DULCOLAX, BISACODYL,) 5 mg EC tablet Take 1 tablet by mouth once daily as needed for constipation. carBAMazepine XR (TEGRETOL XR) 100 mg 12 hr tablet Take 1 tablet by mouth twice daily. Combine with 200 mg twice daily for 300 mg twice daily dose. carBAMazepine XR (TEGRETOL XR) 200 mg 12 hr tablet Take 1 tablet by mouth twice daily. Add to 100 mg twice daily for 300 mg twice daily total dose. Cholecalciferol, Vitamin D3, 50 mcg (2,000 unit) cap Take 2 capsules by mouth once daily. CPAP/BIPAP/OTHER Type .CPAPSettings into a note to see current settings/supplies/DME information. cyclobenzaprine (FLEXERIL) 10 mg tablet Take 1 tablet by mouth three times daily as needed. diclofenac (VOLTAREN) 1 % topical gel apply topically to affected area as directed if needed EPINEPHrine (EPIPEN) 0.3 mg/0.3 mL auto-injector Inject subcutaneously. use as directed if needed after insect bite estrogens conjugated (PREMARIN) 0.3 mg tablet Take 0.3 mg by mouth. Taking 3 times per week. Prescribed by outside OB. fluconazole (DIFLUCAN) 150 mg tablet Take 1 tablet by mouth one time only for 1 dose. fremanezumab-vfrm (AJOVY AUTOINJECTOR) 225 mg/1.5 mL auto-injector Inject 1.5 mL subcutaneously once every month. hydroCHLOROthiazide (HYDRODIURIL, ESIDRIX) 25 mg tablet Take 1 tablet by mouth once daily as needed (fluid retention). ipratropium 20 mcg-albuterol 100 mcg (COMBIVENT RESPIMAT) 20-100 mcg/actuation inhaler Inhale 1 Puff as instructed four times daily as needed for wheezing/shortness of breath. Lactobacillus acidophilus (FLORAJEN ACIDOPHILUS) 20 billion cell capsule Take 1 capsule by mouth once daily. lansoprazole (PREVACID) 30 mg capsule Take 1 capsule by mouth twice daily. levoFLOXacin (LEVAQUIN) 500 mg tablet Take 1 tablet by mouth once daily for 10 days. loratadine-pseudoephedrine ER (LORATA-D) 10-240 mg Tb24 Take 1 tablet by mouth once daily. meclizine (ANTIVERT) 25 mg tab take 1/2 to 1 tablet by mouth every 6 hours if needed for dizziness meloxicam (MOBIC) 15 mg tablet take 1 tablet by mouth once daily montelukast (SINGULAIR) 10 mg tablet Take 1 tablet by mouth daily at bedtime. multivitamin (TAB-A-JESSICA) tablet Take 1 tablet by mouth once daily. naratriptan (AMERGE) 2.5 mg tablet Take 1 tab at migraine onset. May repeat once in 2 hours if needed. oeatlrlz-zcropxpqd-ecdnekcjqpycik (CORTISPORIN) otic solution Use 3 Drops in the ears four times daily. As directed ondansetron orally disintegrating (ZOFRAN ODT) 4 mg disintegrating tablet Take 1 tablet by mouth every 6 hours as needed for nausea/vomiting. polyethylene glycol 3350 17 gram/dose powder Take 17 g by mouth once daily. Dissolve dose in 4 - 8 ounces of liquid and take as directed. promethazine (PHENERGAN) 25 mg tablet Take 1 tablet by mouth every 6 hours as needed for nausea/vomiting. terconazole (TERAZOL 7) 0.4 % vaginal cream Use 1 Applicator vaginally daily at bedtime. triamcinolone acetonide (NASACORT AQ) 55 mcg nasal inhaler Use 2 Sprays in the nose once daily as needed. zolpidem (AMBIEN) 10 mg Take 1 tablet by mouth daily at bedtime for 120 days. No current facility-administered medications for this visit. ALLERGIES Allergen Reactions Bactrim [Sulfametho* GI Upset complained of stomach cramps though had tolerated in the past Bees Floxin [Ofloxacin] interaction with valproic acid; caused bipolar exacerbation with depression ( bipolar low ) Ivp Dye [Iodine] Anaphylaxis Keflex [Cephalexin] Mental Status Change, Itching bipolar low at same time; not sure if from med; no rash was associated Mangoes Other environmental Smoke Shortness of Breath Topamax [Topiramate] Dizziness Ultram [Tramadol Hc* Other: See Comments Migraine headaches Cefdinir Itching ACTIVE PROBLEM LIST Dysuria - 02/08/2023 Intractable Chronic Migraine Without Aura and With Status Migrainosus - 01/17/2022 Status Migrainosus - 12/31/2019 Migraine Without Aura and Without Status Migrainosus, Not Intractable - 12/31/2019 Anxiety - 12/31/2019 Insomnia - 12/31/2019 Chronic Daily Headache - 03/31/2019 Atrophic Vaginitis - 07/14/2018 Vitamin D Deficiency - 03/03/2018 Axillary Mass - 05/06/2016 Chronic Migraine Without Aura, With Intractable Migraine, So Stated, With Status Migrainosus - 04/18/2016 Intractable Chronic Migraine Without Aura and Without Status Migrainosus - 04/18/2016 Medication Overuse Headache - 04/18/2016 Rebound Headache - 04/18/2016 Mixed Incontinence - 04/19/2015 Body Mass Index 40.0-44.9, Adult (Hcc) - 10/30/2014 Nausea and Vomiting - 10/30/2014 Ventral Hernia - 06/10/2014 Strain of Rectus Abdominis Muscle - 06/10/2014 Abdominal Pain - 06/10/2014 Dysmenorrhea - 05/29/2010 Comment: Possible adenomyosis on us Irregular Menstrual Cycle - 05/29/2010 Female Stress Incontinence - 05/29/2010 Cystocele, Midline - 05/29/2010 Acute Gastritis Without Mention of Hemorrhage - 04/04/2010 Migraine Headache - 01/25/2010 Unspecified Sleep Apnea - 12/12/2007 Comment: 12-03-07: effic 87%, no stage III, AHI 5.5, REM 20.9, supine 3, snoring 98%-rec CPAP trial CPAP 12-24-07: effic 70%, AHI 4.5 on 10 with sat above 90% (79% low prior to treatment) Equinus Deformity of Foot, Acquired - 11/05/2007 Anxiety State, Unspecified - 07/01/2007 Calcaneal Spur - 06/25/2007 Allergic Rhinitis, Cause Unspecified - 06/11/2007 Carpal Tunnel Syndrome - 08/27/2006 Irritable Bowel Syndrome - 05/23/2006 Obesity, Unspecified Mild Persistent Asthma Without Complication - 03/25/2006 Other Specified Disorder of Gallbladder - 11/13/2005 Esophageal Reflux Chronic Rhinitis Bipolar Disorder, Unspecified ([facility]) Social History Tobacco Use Smoking status: Former Types: Cigars Start date: 05/04/2023 Smokeless tobacco: Never Tobacco comments: smokes 4 Clove cigars daily. Vaping Use Vaping Use: Some days Substances: THC Substance Use Topics Alcohol use: Yes Comment: once a month Drug use: Yes Types: Marijuana Comment: Lots of coffee per day/uses marijuana when pain gets severe Review of Systems Respiratory: Positive for cough and shortness of breath. Negative for apnea, choking, chest tightness, wheezing and stridor. Cardiovascular: Negative. OBJECTIVE BP 116/76 Pulse 96 Temp 97 Resp 18 Wt 256 lb (116.1kg) SpO2 98% LMP 05/14/2015 Physical Exam Vitals and nursing note reviewed. Constitutional: General: She is awake. She is not in acute distress. Appearance: Normal appearance. She is well-developed and well-groomed. She is not ill-appearing, toxic-appearing or diaphoretic. HENT: Head: Normocephalic. Right Ear: External ear normal. Left Ear: External ear normal. Nose: Nose normal. Eyes: General: Vision grossly intact. Conjunctiva/sclera: Conjunctivae normal. Pupils: Pupils are equal, round, and reactive to light. Neck: Vascular: No JVD. Trachea: Trachea normal. Cardiovascular: Rate and Rhythm: Normal rate and regular rhythm. Pulses: Normal pulses. Heart sounds: Normal heart sounds. No murmur heard. Pulmonary: Effort: Pulmonary effort is normal. No accessory muscle usage, prolonged expiration or respiratory distress. Breath sounds: Examination of the right-lower field reveals decreased breath sounds and wheezing. Examination of the left-lower field reveals decreased breath sounds and wheezing. Decreased breath sounds and wheezing present. No rhonchi or rales. Musculoskeletal: Cervical back: Neck supple. Skin: General: Skin is warm and dry. Capillary Refill: Capillary refill takes less than 2 seconds. Neurological: General: No focal deficit present. Mental Status: She is alert and oriented to person, place, and time. Mental status is at baseline. Psychiatric: Attention and Perception: Attention and perception normal. Mood and Affect: Mood and affect normal. Speech: Speech normal. Behavior: Behavior normal. Behavior is cooperative. Thought Content: Thought content normal. Cognition and Memory: Cognition and memory normal. Judgment: Judgment normal. ASSESSMENT/PLAN: 1. Pneumonia due to infectious organism, unspecified laterality, unspecified part of lung - ICD9: 486, ICD10: J18.9 Concerns of returning pneumonia since she did not have complete resolution of symptoms. Start Levaquin, reviewed prior EKG and QT/Qtc reasonable. Chest xray after treatment and before follow up with PCP and of the month. Can use diflucan for her yeast infection but take first dose today, start Levaquin tomorrow, then take x1 final dose of diflucan after Levaquin if still having symptoms. - LEVOFLOXACIN 500 MG TABLET - XR CHEST 2V FRONTAL/LAT Portions of this note have been entered by ancillary staff. I have reviewed and when necessary edited, so that they are an adequate record of my encounter with this patient Please note that parts of this document were created using voice recognition software and therefore may contain grammatical errors. Patient verbalizes understanding of instructions from today's visit and in agreement with treatment plan. Questions answered. Agrees to call the office if questions, concerns of issues with acute symptoms not improving or if they worsen. See diagnoses and orders for additional plan(s). Allergies and medications were reviewed, list was updated, and refills given if needed. Past medical, surgical, social, and family history reviewed and updated as appropriate. Encouraged proper diet & exercise as well as compliance with taking medications. Age-appropriate health preventative measures were discussed. Return in about 2 weeks (around 06/04/2023), or if symptoms worsen or fail to improve, for Keep next scheduled appointment.. JULIANA Hernandez documented in this encounter [facility] 05-19-2023 Miscellaneous Notes PA sent to [facility] via [email or web address] Mary Zamudio RN documented in this encounter [facility] 05-09-2023 History of Present illness Narrative Transitional Care Management Progress Note The patients TCM visit was performed within the 7 days of discharge. TCM Eligibility Documentation The following information was gathered during the initial Patient Outreach Encounter. Date of Outreach: 05/07/2023 Outreach Attempt 1: Contact Made Date of Discharge 05/06/2023 Some recent data might be hidden If no data exists please enter it manually. If data exists please delete date of discharge and date of initial contact seen below. Patient's Date of discharge: 05/06/2023 Date of initial coordinator contact after discharge: 05/07/2032 Discharge diagnosis: pneumonia Medication review completed Yes Provider Documentation: In follow-up of hospitalization, Sky Zamudio is a 53 year old female with the chief complaint of hospital discharge follow up. I have reviewed the patient s last hospital course including diagnostic testing performed during this hospitalization, their discharge medications, and my assessment and plan with the patient and any family members present at today s visit. HPI: Sky presents today for a hospital discharge follow up. She was discharged from [facility] admitted on 05/03/2023 and discharged 05/06/2023. She had been admitted for breathing difficulty. Diagnosed with pneumonia and rhino virus. Feeling better but not back to normal. Discharged on Omnicef, had issues with itching to her legs so we stopped this and switched her to doxycycline. Itching has resolved. Still taking prednisone. Quit smoking since home. Was on supplemental o2 in the hospital but no pap therapy and no ventilator assist needed. Sleep study done 2007 and previously diagnosed with GABY but has not been using her CPAP. Prior pap orders for cpap pressure of 10. Some wheezing, short of breath with activity, resolves with rest. Overall feeling okay but not back to normal yet. PAST MEDICAL HISTORY: Reviewed and updated PAST MEDICAL HISTORY Diagnosis Date Abdominal pain, periumbilic Acute gastritis without mention of hemorrhage Atrophic vaginitis 07/14/2018 Bipolar disorder, unspecified (HCC) Chronic rhinitis Closed fracture of navicular (scaphoid) bone of foot 12/10/2011 Contact dermatitis and other eczema, due to unspecified cause Diaphragmatic hernia without mention of obstruction or gangrene Dysmenorrhea decreased Esophageal reflux Excessive or frequent menstruation Heavy periods resolved Irregular menstrual cycle Irregular periods Migraine headache Obesity, unspecified Other specified gastritis SLEEP APNEA NOS 12/12/2007 12-03-07: effic 87%, no stage III, AHI 5.5, REM 20.9, supine 3, snoring 98%-rec CPAP trial Stress incontinence Unspecified asthma(493.90) Unspecified symptom associated with female genital organs ALLERGIES: Reviewed and updated ALLERGIES Allergen Reactions Bactrim [Sulfametho* GI Upset complained of stomach cramps though had tolerated in the past Bees Floxin [Ofloxacin] interaction with valproic acid; caused bipolar exacerbation with depression ( bipolar low ) Ivp Dye [Iodine] Anaphylaxis Keflex [Cephalexin] Mental Status Change, Itching bipolar low at same time; not sure if from med; no rash was associated Mangoes Other environmental Smoke Shortness of Breath Topamax [Topiramate] Dizziness Ultram [Tramadol Hc* Other: See Comments Migraine headaches MEDICATIONS: Reviewed and updated Current Outpatient Medications Medication Sig doxycycline (VIBRA-TABS) 100 mg tablet Take 1 tablet by mouth twice daily for 5 days. ipratropium 20 mcg-albuterol 100 mcg (COMBIVENT RESPIMAT) 20-100 mcg/actuation inhaler Inhale 1 Puff as instructed four times daily as needed for wheezing/shortness of breath. triamcinolone acetonide (NASACORT AQ) 55 mcg nasal inhaler Use 2 Sprays in the nose once daily as needed. fremanezumab-vfrm (AJOVY AUTOINJECTOR) 225 mg/1.5 mL auto-injector Inject 1.5 mL subcutaneously once every month. naratriptan (AMERGE) 2.5 mg tablet Take 1 tab at migraine onset. May repeat once in 2 hours if needed. dexAMETHasone (DECADRON) 4 mg tablet Take 1 tab tid on day 1, then bid on day 2, then once on day 3. acetaminophen 325 mg-caffeine 40 mg-butalbital 50 mg (FIORICET) per tablet Take 1 tablet by mouth every 6 hours if needed for headache. No more than 5 days per month. meclizine (ANTIVERT) 25 mg tab take 1/2 to 1 tablet by mouth every 6 hours if needed for dizziness ondansetron orally disintegrating (ZOFRAN ODT) 4 mg disintegrating tablet Take 1 tablet by mouth every 6 hours as needed for nausea/vomiting. multivitamin (TAB-A-JESSICA) tablet Take 1 tablet by mouth once daily. Lactobacillus acidophilus (FLORAJEN ACIDOPHILUS) 20 billion cell capsule Take 1 capsule by mouth once daily. EPINEPHrine (EPIPEN) 0.3 mg/0.3 mL auto-injector Inject subcutaneously. use as directed if needed after insect bite diclofenac (VOLTAREN) 1 % topical gel apply topically to affected area as directed if needed meloxicam (MOBIC) 15 mg tablet take 1 tablet by mouth once daily qvdaxmnq-ghhlvcyhf-buysxzibexogyz (CORTISPORIN) otic solution Use 3 Drops in the ears four times daily. As directed albuterol HFA (VENTOLIN HFA) 90 mcg/actuation inhaler Inhale 2 Puffs as instructed every 4 hours as needed. zolpidem (AMBIEN) 10 mg Take 1 tablet by mouth daily at bedtime for 120 days. bisacodyl EC (DULCOLAX, BISACODYL,) 5 mg EC tablet Take 1 tablet by mouth once daily as needed for constipation. lansoprazole (PREVACID) 30 mg capsule Take 1 capsule by mouth twice daily. polyethylene glycol 3350 17 gram/dose powder Take 17 g by mouth once daily. Dissolve dose in 4 - 8 ounces of liquid and take as directed. Benzonatate 200 mg capsule Take 1 capsule by mouth three times daily as needed. Cholecalciferol, Vitamin D3, 50 mcg (2,000 unit) cap Take 2 capsules by mouth once daily. montelukast (SINGULAIR) 10 mg tablet Take 1 tablet by mouth daily at bedtime. cyclobenzaprine (FLEXERIL) 10 mg tablet Take 1 tablet by mouth three times daily as needed. carBAMazepine XR (TEGRETOL XR) 100 mg 12 hr tablet Take 1 tablet by mouth twice daily. Combine with 200 mg twice daily for 300 mg twice daily dose. carBAMazepine XR (TEGRETOL XR) 200 mg 12 hr tablet Take 1 tablet by mouth twice daily. Add to 100 mg twice daily for 300 mg twice daily total dose. loratadine-pseudoephedrine ER (LORATA-D) 10-240 mg Tb24 Take 1 tablet by mouth once daily. terconazole (TERAZOL 7) 0.4 % vaginal cream Use 1 Applicator vaginally daily at bedtime. estrogens conjugated (PREMARIN) 0.3 mg tablet Take 0.3 mg by mouth. Taking 3 times per week. Prescribed by outside OB. hydroCHLOROthiazide (HYDRODIURIL, ESIDRIX) 25 mg tablet Take 1 tablet by mouth once daily as needed (fluid retention). No current facility-administered medications for this visit. SOCIAL HISTORY: Reviewed and updated Social History Tobacco Use Smoking status: Former Types: Cigars Start date: 05/04/2023 Smokeless tobacco: Never Tobacco comments: smokes 4 Clove cigars daily. Vaping Use Vaping Use: Some days Substances: THC Substance Use Topics Alcohol use: Yes Comment: once a month Drug use: Yes Types: Marijuana Comment: Lots of coffee per day/uses marijuana when pain gets severe FAMILY HISTORY: Reviewed and updated FAMILY HISTORY Problem Relation Age of Onset other (bipolar) Mother Arthritis Mother other (den disc disease) Father Dementia Father other (bipolar) Brother asthma other (crohns) Brother other (Migraine) Brother Diabetes Maternal Grandmother Heart Maternal Grandmother other (Agustín's disease) Daughter other (Agustín's Disease) Son other (Agustín's Disease) Son other (Bipolar) Son Breast Cancer Other Maternal Cousin Review of Systems Constitutional: Positive for fatigue. Respiratory: Positive for cough, shortness of breath and wheezing. Negative for apnea, choking, chest tightness and stridor. Cardiovascular: Negative. All other systems reviewed and negative, other than HPI. Physical Exam Vitals and nursing note reviewed. Constitutional: General: She is awake. She is not in acute distress. Appearance: Normal appearance. She is well-developed and well-groomed. She is not ill-appearing, toxic-appearing or diaphoretic. HENT: Head: Normocephalic. Right Ear: External ear normal. Left Ear: External ear normal. Nose: Nose normal. Eyes: General: Vision grossly intact. Conjunctiva/sclera: Conjunctivae normal. Pupils: Pupils are equal, round, and reactive to light. Neck: Vascular: No JVD. Trachea: Trachea normal. Cardiovascular: Rate and Rhythm: Normal rate and regular rhythm. Pulses: Normal pulses. Heart sounds: Normal heart sounds. No murmur heard. Pulmonary: Effort: Pulmonary effort is normal. No accessory muscle usage, prolonged expiration or respiratory distress. Breath sounds: Normal breath sounds. Musculoskeletal: Cervical back: Neck supple. Skin: General: Skin is warm and dry. Capillary Refill: Capillary refill takes less than 2 seconds. Neurological: General: No focal deficit present. Mental Status: She is alert and oriented to person, place, and time. Mental status is at baseline. Psychiatric: Attention and Perception: Attention and perception normal. Mood and Affect: Mood and affect normal. Speech: Speech normal. Behavior: Behavior normal. Behavior is cooperative. Thought Content: Thought content normal. Cognition and Memory: Cognition and memory normal. Judgment: Judgment normal. BP 124/90 Pulse 82 Temp (Src) 96.9 (Temporal) Wt 254 lb (115.2kg) SpO2 98% LMP 05/14/2015 1. I have reviewed the patient record including associated test results during the last hospitalization Yes 2. I have reviewed Lab test Yes 3. I have reviewed Radiology test Yes 4. I reviewed assessment/plan with the patient/family member Yes ASSESSMENT/PLAN: 1. Pneumonia due to infectious organism, unspecified laterality, unspecified part of lung - ICD9: 486, ICD10: J18.9 (primary diagnosis) Slowly improving, check cxr today. Extend out doxy, finish steroid as prescribed, albuterol PRN. - XR CHEST 2V FRONTAL/LAT - DOXYCYCLINE HYCLATE 100 MG TABLET - PROMETHAZINE 25 MG TABLET 2. Mild persistent asthma without complication - ICD9: 493.90, ICD10: J45.30 - XR CHEST 2V FRONTAL/LAT 3. GABY (obstructive sleep apnea) - ICD9: 327.23, ICD10: G47.33 Reorder pap therapy. May need to update sleep study. Orders to [facility] with [facility]. - PAP THERAPY ORDER - CPAP/BIPAP/OTHER 4. Currently attempting to quit smoking - ICD9: 305.1, ICD10: Z72.0 - Cessation encouraged. - Physiologic and physical aspects of tobacco addiction as well as strategies for quitting were discussed. - Counseling was given focusing on the harmful effects of this addiction especially given the patient's medical condition(s) which will be worsened because of the chemicals in tobacco. 5. Side effect of medication - ICD9: 995.20, ICD10: T88.7XXA Itching from Omnicef. Added to allergy list. 6. Anxiety - ICD9: 300.00, ICD10: F41.9 - ALPRAZOLAM 0.5 MG TABLET 7. Hospital discharge follow-up - ICD9: V67.59, ICD10: Z09 Portions of this note have been entered by ancillary staff. I have reviewed and when necessary edited, so that they are an adequate record of my encounter with this patient Please note that parts of this document were created using voice recognition software and therefore may contain grammatical errors. Patient verbalizes understanding of instructions from today's visit and in agreement with treatment plan. Questions answered. Agrees to call the office if questions, concerns or issues with acute symptoms not improving or if they worsen. See diagnoses and orders for additional plan(s). Allergies and medications were reviewed, list was updated, and refills given if needed. Past medical, surgical, social, and family history reviewed and updated as appropriate. Encouraged proper diet & exercise as well as compliance with taking medications. Age-appropriate health preventative measures were discussed. Return if symptoms worsen or fail to improve, for Keep next scheduled appointment.. Molly Simpson APRN-MIGUE documented in this encounter [facility] 05-08-2023 Note . MICRO - Microbiology PROCEDURE: Blood Culture (bacterial) [*1] SOURCE: Blood BODY SITE: COLLECTED DATE/TIME: 05/03/2023 10:14 EDT RECEIVED DATE/TIME: 05/03/2023 15:29 EDT START DATE/TIME: 05/03/2023 15:29 EDT FREE TEXT SOURCE: FINAL REPORTS Final Report [] Verified Date/Time/Personnel: 05/08/2023 15:59 EDT Blood Culture: No Growth at 5 days. PRELIMINARY REPORTS Preliminary Report [] Verified Date/Time/Personnel: 05/03/2023 16:59 EDT Culture has been received in lab and is no growth to date. Routine cultures are held for 5 days. Performing Locations *1: This test was performed at: [address], [facility]- , [facility] ([place]) 05-08-2023 Note . MICRO - Microbiology PROCEDURE: Blood Culture (bacterial) [*1] SOURCE: Blood BODY SITE: COLLECTED DATE/TIME: 05/03/2023 10:14 EDT RECEIVED DATE/TIME: 05/03/2023 15:29 EDT START DATE/TIME: 05/03/2023 15:29 EDT FREE TEXT SOURCE: FINAL REPORTS Final Report [] Verified Date/Time/Personnel: 05/08/2023 15:59 EDT Blood Culture: No Growth at 5 days. PRELIMINARY REPORTS Preliminary Report [] Verified Date/Time/Personnel: 05/03/2023 16:59 EDT Culture has been received in lab and is no growth to date. Routine cultures are held for 5 days. Performing Locations *1: This test was performed at: [address], [facility] , [facility] ([place]) 05-05-2023 Note . MICRO - Microbiology PROCEDURE: Culture Respiratory with Gram Stain [^1 *1] SOURCE: Sputum Induced BODY SITE: COLLECTED DATE/TIME: 05/03/2023 23:31 EDT RECEIVED DATE/TIME: 05/03/2023 23:47 EDT START DATE/TIME: 05/03/2023 23:47 EDT FREE TEXT SOURCE: FINAL REPORTS Final Report [] Verified Date/Time/Personnel: 05/05/2023 07:21 EDT Normal respiratory hermann present at 48 hours Sensitivity testing not indicated PRELIMINARY REPORTS Preliminary Report [] Verified Date/Time/Personnel: 05/04/2023 08:34 EDT Negative for respiratory pathogens at 24 hours. STAINS GS [] Verified Date/Time/Personnel: 05/04/2023 00:11 EDT Predominance of polys 1+ Gram Positive Cocci 1+ Gram Positive Rods Interpretive Data ^1: Culture Respiratory with Gram Stain Requests for Mycoplasma, Legionella, Fungi, Mycobacteria, Chlamydia, and Viruses require ordering of those individual tests. Performing Locations *1: This test was performed at: [address], [address] [place] [address] 05-04-2023 Note . MICRO - Microbiology PROCEDURE: Legionella Urine Ag [*1] SOURCE: Urine BODY SITE: COLLECTED DATE/TIME: 05/03/2023 23:31 EDT RECEIVED DATE/TIME: 05/03/2023 23:39 EDT START DATE/TIME: 05/03/2023 23:39 EDT FREE TEXT SOURCE: FINAL REPORTS Final Report [] Verified Date/Time/Personnel: 05/04/2023 00:04 EDT Presumptive negative for L. pneumophila serogroup 1 antigen in urine, suggesting no recent or current infection. Legionnaire's disease cannot be ruled out since other serogroups and species may also cause disease. Performing Locations *1: This test was performed at: [address], [facility] , [facility] ([place]) 05-04-2023 Note . MICRO - Microbiology PROCEDURE: Streptococcus Pneumoniae Urine Antig [^1 *1] SOURCE: Urine BODY SITE: COLLECTED DATE/TIME: 05/03/2023 23:31 EDT RECEIVED DATE/TIME: 05/03/2023 23:39 EDT START DATE/TIME: 05/03/2023 23:39 EDT FREE TEXT SOURCE: FINAL REPORTS Final Report [] Verified Date/Time/Personnel: 05/04/2023 00:03 EDT Presumptive negative for pneumococcal pneumonia, suggesting no current or recent pneumococcal infection. Infection due to Strep pneumoniae cannot be ruled out since the antigen present in the sample may be below the detection limit of the test. Interpretive Data ^1: Streptococcus Pneumoniae Urine Antig This test has not been evaluated on patients taking antibiotics for greater than 24 hours or on patients who have recently completed an antibiotic regimen. The accuracy of this test has not been proven in young children. Performing Locations *1: This test was performed at: [address], [id number]- , [facility] ([place]) 05-03-2023 Note Sinus rhythm Low voltage, precordial leads Electronic Signature: ADAN JI MD 05/03/2023 12:33:32 [facility] 05-03-2023 Note ORIGINAL EXAMINATION: ONE XRAY VIEW OF THE CHEST05/03/2023 9:44 am COMPARISON: 12/06/2018 HISTORY: ORDERING SYSTEM PROVIDED HISTORY: Reason for Exam: SOB/cough/fever FINDINGS: The cardiomediastinal contours are normal. Accentuated vascular markings noted. Patchy airspace disease seen in the right mid lung. No pleural fluid or pneumothorax. No aggressive osseous lesions identified. IMPRESSION: Patchy airspace disease in the mid right lung may relate to pneumonia in the proper clinical setting. Follow to resolution Accentuated vascular markings may relate to congestion Interpreted by: Lamberto Flores MD Preliminary Report By: Lamberto Flores MD Electronically signed By Lamberto Flores MD Dictated Date: 05/03/2023 9:54:25 AM Prelim Date: 05/03/2023 9:55:04 AM Sign Date: 05/03/2023 9:55:04 AM Ordering Provider: ADAN JI [facility] 05-02-2023 Miscellaneous Notes Okayed Last office visit: 02/25/23 Next appointment scheduled: 06/09/23 Patient phones requesting refills as follows: Requested Prescriptions Pending Prescriptions Disp Refills ipratropium 20 mcg-albuterol 100 mcg (COMBIVENT RESPIMAT) 20-100 mcg/actuation inhaler 4 g 11 Sig: Inhale 1 Puff as instructed four times daily as needed for wheezing/shortness of breath. Please review and advise. Gely Miramontes LPN documented in this encounter [facility] 05-02-2023 Miscellaneous Notes Okayed Last office visit: 02/25/23 Next appointment scheduled: 06/09/23 Patient phones requesting refills as follows: Requested Prescriptions Pending Prescriptions Disp Refills triamcinolone acetonide (NASACORT AQ) 55 mcg nasal inhaler 16.9 mL 11 Sig: Use 2 Sprays in the nose once daily as needed. Please review and advise. Gely Miramontes LPN documented in this encounter [facility] 04-28-2023 Miscellaneous Notes Called and updated patient via voice mail, patient identified self on phone. Debora Coffey LPN Spoke to patient, states she is having bowel movements 3-4 times/ day. Stools are formed, light brown. No complaints of runny stools, constipation. Patient states she is only taking half the dosage of Miralax and resumed taking fiber chews. Patient wants to know if she needs to continue with the miralax or does she need to start something else? Dr. Edwards patient says Be safe and she appreciates all you do for her! Theresa Houston LPN Patient asking for provider to advise on abdominal xray completed on 03/20/23. Thank you. Tara Royal RN documented in this encounter [facility] 04-21-2023 Miscellaneous Notes PATIENT NOTIFIED OF SAME. Labs 02/08 were over all stable, WBC slightly elevated but better than prior numbers. Likely the WBCs being up is from her smoking. PATIENT NOTIFIED OF SAME. Patient is asking about labs that were completed 02/08/2023. Please return call and let her know screening recommended for her are keeping colonoscopy up to date (looks like she has done that), getting her routine mammogram done and getting her regular pap screening done (due for both of those, we can do the pap if she would like). WBC can be elevated for other reasons. The best option for a blood test to look for the possibility of cancer is some thing called a CEA and CA-125 but if not indicated insurance may not cover the testing. Patient calling to request lab orders for cancer screening stating she took Zantac for many years, has ongoing stomach pains and has an elevated WBC. Monalisa Reza RN documented in this encounter [facility] 04-17-2023 History of Present illness Narrative [facility] - Follow up Virtual Visit This visit was conducted as a virtual visit, with patient's permission, via Zoom. Patient location - [place], [place] Sky Zamudio was identified by name and and consented to the video evaluation and its limitations. Based on this evaluation it may be necessary for them to schedule a follow up evaluation with me or other neurologists for formal physical examination and if necessary,other studies. I have communicated my name and active licensure. The patient's identity and physical location were verified at the time of this visit. Either the patient or their legal event representative has been informed of the risks and benefits of -- and alternatives to -- treatment through a remote evaluation and consents to proceed with the evaluation remotely. Accompanied by: Self Primary Problem List: ACTIVE PROBLEM LIST Esophageal Reflux Chronic Rhinitis Bipolar Disorder, Unspecified (Hcc) Other Specified Disorder of Gallbladder Mild Persistent Asthma Without Complication Obesity, Unspecified Irritable Bowel Syndrome Carpal Tunnel Syndrome Allergic Rhinitis, Cause Unspecified Calcaneal Spur Anxiety State, Unspecified Equinus Deformity of Foot, Acquired Unspecified Sleep Apnea Migraine Headache Acute Gastritis Without Mention of Hemorrhage Dysmenorrhea Irregular Menstrual Cycle Female Stress Incontinence Cystocele, Midline Ventral Hernia Strain of Rectus Abdominis Muscle Abdominal Pain Body Mass Index 40.0-44.9, Adult (Hcc) Nausea and Vomiting Mixed Incontinence Chronic Migraine Without Aura, With Intractable Migraine, So Stated, With Status Migrainosus Intractable Chronic Migraine Without Aura and Without Status Migrainosus Medication Overuse Headache Rebound Headache Axillary Mass Vitamin D Deficiency Atrophic Vaginitis Chronic Daily Headache Status Migrainosus Migraine Without Aura and Without Status Migrainosus, Not Intractable Anxiety Insomnia Intractable Chronic Migraine Without Aura and With Status Migrainosus Dysuria Chief Complaint: Follow up LV: 10/04/2022 w/ Jona Boyer APRN.TIMBER HAND Impression and Plan from last visit: IMPRESSION: Sky Zamudio is a 52 year old year old female, with a history of bipolar, migraine without aura, obesity s/p gastric bypass, GABY, with chronic daily headaches consistent with chronic migraine. Improved significantly on Ajovy, in frequency, severity, and duration. Her rescue medications are also more effective now that her headaches are well controlled. She is tolerating all her medications well. We will continue the current regimen as rx'ed. Her neurological examination is essentially normal at this visit. PLAN: - cont ajovy, will renew auth - cont naratriptan < 10 days per month - cont fioricet < 5 days per month and reserve for rescue Interval Headache History: Sky Zamudio is a 53 year old year old female, with a history of history of bipolar, migraine without aura, obesity s/p gastric bypass, GABY, with chronic daily headaches consistent with chronic migraine following up today virtually for migraines. Since the last visit, the patient states that their headaches are worse since she has not had her Ajovy injection since the end of February. Headache 1 Onset: 1994 Location: right, left, temporal and occipital Quality/Description: piercing/stabbing and throbbing Associated Symptoms: Photophobia: yes Phonophobia: yes Nausea: yes Vomiting: yes - occasionally Other symptoms: none Worse with activity: yes Number of migraine headache days/month: 3 Number of NON-migraine headache days/month: 2 Total Number of headache days/month: 5 Number of headache free days/month: 25 Duration of headaches with treatment: 5 hours Current preventive treatment: Ajovy- hasn't had since end february Current abortive treatment: naritriptan Triggers: odors, weather changes and bright lights Onset of headache to peak: gradual Positional changes: no Most common time of day for headache to begin: anytime Aura: none Days missed from work or school in the last month: 2 days Headache status since the last visit: worse (since missing Ajovy) Lifestyle: Sleep: 6-8 Exercise: none Preventative: tegretol, Ajovy Abortive: naratriptan, Fioricet Medications effective? yes # of doses of abortive medications per month: 2-3 Contraception: hx of hysterectomy Analgesic Acetaminophen with codeine (Tylenol #3) Butalbital/acetaminophen/caffeine (Fioricet) Hydrocodone/Acetaminophen (Vicodin, [place]) Ketorolac (Toradol) Meloxicam (Mobic) Oxycodone/Acetaminophen (Percocet) Anti-Anxiety Diazepam (Valium) Anti-Convulsant Carbamazepine (Tegretol) Divalproex sodium (Depakote) Gabapentin (Neurontin) Lamotrigine (Lamictal) Topiramate (Topamax, Trokendi XL, Qudexy) Zonisamide (Zonegram) Anti-Depressant and Antipsychotic Amitriptyline (Elavil) Nortriptyline (Pamelor, Aventyl) Buspirone Antiemetics Ondansetron Prochlorperazine Promethazine Anti-Migraine Isometheptene/Acetaminophen/Dichloralp henazone (Midrin) Naratriptan (Amerge) Rizatriptan (Maxalt) Sumatriptan (Imitrex, Sumavel) Blood Pressure Verapamil (Verelan, Calan, Isoptin) Hydrochlorothiazide MABs Erenumab (Aimovig) Works for only 2 weeks and then wears off. Fremanezumab (Ajovy) Worked good but insurance stopped covering. GEPANTS Rimegepant (Nurtec) Muscle Relaxer Cyclobenzaprine (Flexeril) Tizanidine (Zanaflex) Sleep Aids Trazodone (Desyrel) Supplements Magnesium Other Medications Dexamethasone (Decadron) Methylprednisolone (Medrol) Prednisone Over the Counter Medications Acetaminophen/Aspirin/Caffeine (Excedrin, Goody s) Ibuprofen (Advil, Motrin) Naproxen sodium (Aleve) PAST MEDICAL HISTORY Diagnosis Date Abdominal pain, periumbilic Acute gastritis without mention of hemorrhage Atrophic vaginitis 07/14/2018 Bipolar disorder, unspecified (HCC) Chronic rhinitis Closed fracture of navicular (scaphoid) bone of foot 12/10/2011 Contact dermatitis and other eczema, due to unspecified cause Diaphragmatic hernia without mention of obstruction or gangrene Dysmenorrhea decreased Esophageal reflux Excessive or frequent menstruation Heavy periods resolved Irregular menstrual cycle Irregular periods Migraine headache Obesity, unspecified Other specified gastritis SLEEP APNEA NOS 12/12/200708: effic 87%, no stage III, AHI 5.5, REM 20.9, supine 3, snoring 98%-rec CPAP trial Stress incontinence Unspecified asthma(493.90) Unspecified symptom associated with female genital organs PAST SURGICAL HISTORY Procedure Laterality Date ADENOIDECTOMY PRIMARY <AGE 12 Adenoidectomy ANESTHESIA HERNIA REPAIR LOWER ABDOMEN NOS 01/31/2005 DELIVERY ONLY x 3 , low cervical CHOLECYSTECTOMY 03/05/2006 Cholecystectomy COLONOSCOPY 12/18/2022 COLONOSCOPY FLX DX W/COLLJ SPEC WHEN PFRMD 03/13/2005 Colonoscopy COLONOSCOPY FLX DX W/COLLJ SPEC WHEN PFRMD 04/28/2018 Colonoscopy COLSC FLX W/RMVL OF TUMOR POLYP LESION SNARE TQ 04/02/2016 ?mild colitis, tubular adenoma in rectal polyp - 5 year follow up EGD 12/18/2022 EGD TRANSORAL BIOPSY SINGLE/MULTIPLE 04/04/2010 mild gastritis ESOPHAGOGASTRODUODENOSCOPY TRANSORAL DIAGNOSTIC 03/13/2005 EGD ESOPHAGOGASTRODUODENOSCOPY TRANSORAL DIAGNOSTIC 09/14/2019 EGD HYSTERECTOMY HX 05/02/2015 with repair of incidental cystotomy HYSTEROSCOPY, DIAGNOSTIC (SEPARATE 06/21/2010 hysteroscopy D&C, Novasure LIG/TRNSXJ FLP TUBE ABDL/VAG APPR UNI/BI Tubal ligation NEUROPLASTY &/TRANSPOS MEDIAN NRV CARPAL TUNNE 06/04/2007 Carpal tunnel decomp right PAST SURGICAL HISTORY OF Abd hernia and mesh placement REPAIR INCISIONAL HERNIA 04/02/2005 with mesh - 3cm infraumbilical - 5cm below umbilicus- medium ventralex mesh SLING OPER STRES INCONTINENCE 05/02/2015 TONSILLECTOMY PRIMARY/SECONDARY <AGE 12 Tonsillectomy ALLERGIES Allergen Reactions Bactrim [Sulfametho* GI Upset complained of stomach cramps though had tolerated in the past Bees Floxin [Ofloxacin] interaction with valproic acid; caused bipolar exacerbation with depression ( bipolar low ) Ivp Dye [Iodine] Anaphylaxis Keflex [Cephalexin] Mental Status Change, Itching bipolar low at same time; not sure if from med; no rash was associated Mangoes Other environmental Smoke Shortness of Breath Topamax [Topiramate] Dizziness Ultram [Tramadol Hc* Other: See Comments Migraine headaches Current Medications: fremanezumab-vfrm (AJOVY AUTOINJECTOR) 225 mg/1.5 mL auto-injector Inject 1.5 mL subcutaneously once every month. naratriptan (AMERGE) 2.5 mg tablet Take 1 tab at migraine onset. May repeat once in 2 hours if needed. dexAMETHasone (DECADRON) 4 mg tablet Take 1 tab tid on day 1, then bid on day 2, then once on day 3. acetaminophen 325 mg-caffeine 40 mg-butalbital 50 mg (FIORICET) per tablet Take 1 tablet by mouth every 6 hours if needed for headache. No more than 5 days per month. ALPRAZolam (XANAX) 0.5 mg tablet Take 1 tablet by mouth twice daily as needed for up to 7 days. meclizine (ANTIVERT) 25 mg tab take 1/2 to 1 tablet by mouth every 6 hours if needed for dizziness ondansetron orally disintegrating (ZOFRAN ODT) 4 mg disintegrating tablet Take 1 tablet by mouth every 6 hours as needed for nausea/vomiting. multivitamin (TAB-A-JESSICA) tablet Take 1 tablet by mouth once daily. Lactobacillus acidophilus (FLORAJEN ACIDOPHILUS) 20 billion cell capsule Take 1 capsule by mouth once daily. EPINEPHrine (EPIPEN) 0.3 mg/0.3 mL auto-injector Inject subcutaneously. use as directed if needed after insect bite diclofenac (VOLTAREN) 1 % topical gel apply topically to affected area as directed if needed sucralfate (CARAFATE) 1 gram tablet Take 1 tablet by mouth four times daily. meloxicam (MOBIC) 15 mg tablet take 1 tablet by mouth once daily llnpyxtk-zqfhzswto-qyfonvixiliypg (CORTISPORIN) otic solution Use 3 Drops in the ears four times daily. As directed albuterol HFA (VENTOLIN HFA) 90 mcg/actuation inhaler Inhale 2 Puffs as instructed every 4 hours as needed. zolpidem (AMBIEN) 10 mg Take 1 tablet by mouth daily at bedtime for 120 days. bisacodyl EC (DULCOLAX, BISACODYL,) 5 mg EC tablet Take 1 tablet by mouth once daily as needed for constipation. lansoprazole (PREVACID) 30 mg capsule Take 1 capsule by mouth twice daily. polyethylene glycol 3350 17 gram/dose powder Take 17 g by mouth once daily. Dissolve dose in 4 - 8 ounces of liquid and take as directed. Benzonatate 200 mg capsule Take 1 capsule by mouth three times daily as needed. Cholecalciferol, Vitamin D3, 50 mcg (2,000 unit) cap Take 2 capsules by mouth once daily. montelukast (SINGULAIR) 10 mg tablet Take 1 tablet by mouth daily at bedtime. nicotine polacrilex (NICORETTE) 2 mg gum Take 1 Each by mouth every 2 hours as needed. (Patient not taking: Reported on 03/20/2023) triamcinolone acetonide (NASACORT AQ) 55 mcg nasal inhaler Use 2 Sprays in the nose once daily as needed. cyclobenzaprine (FLEXERIL) 10 mg tablet Take 1 tablet by mouth three times daily as needed. carBAMazepine XR (TEGRETOL XR) 100 mg 12 hr tablet Take 1 tablet by mouth twice daily. Combine with 200 mg twice daily for 300 mg twice daily dose. carBAMazepine XR (TEGRETOL XR) 200 mg 12 hr tablet Take 1 tablet by mouth twice daily. Add to 100 mg twice daily for 300 mg twice daily total dose. ipratropium 20 mcg-albuterol 100 mcg (COMBIVENT RESPIMAT) 20-100 mcg/actuation inhaler Inhale 1 Puff as instructed four times daily as needed for wheezing/shortness of breath. loratadine-pseudoephedrine ER (LORATA-D) 10-240 mg Tb24 Take 1 tablet by mouth once daily. terconazole (TERAZOL 7) 0.4 % vaginal cream Use 1 Applicator vaginally daily at bedtime. estrogens conjugated (PREMARIN) 0.3 mg tablet Take 0.3 mg by mouth. Taking 3 times per week. Prescribed by outside OB. hydroCHLOROthiazide (HYDRODIURIL, ESIDRIX) 25 mg tablet Take 1 tablet by mouth once daily as needed (fluid retention). I have reviewed the Health Status Assessment responses and discussed these with the patient: yes Pastora Glynn APRN.[employer] HAND HEADACHE SCORES: Headache Questions 10/04/2022 10/04/2022 04/17/2023 ER visits since last office visit: 0 0 0 Hospital stays since last office visit 0 0 0 Limited ADLs in the last month: 7 1 7 Days missed from work or school in the last month: 0 0 2 Days headache pain free in the last month: 7 17 14 Days per month with ALL of the following symptoms - decreased productivity, light sensitivity and nausea: 7 4 14 Initial improvement of headache after botox injection at last visit: - Not applicable, I did not have a botox injection at my last visit Not applicable, I did not have a botox injection at my last visit PRN medication usage in the last month: - 20 14 Patient impression of improvement since last visit: Much improved Much improved Much worse HIT-6 07/18/2022 10/04/2022 04/17/2023 HIT-6 61 (Severe impact) 55 (Moderate impact) 63 (Severe impact) RAMONA - 2/7 SCORES 07/18/2022 10/04/2022 04/17/2023 RAMONA-2 Score 2 0 5 RAMONA-7 Score - - 16 Migraine Specific QOL - Higher scores indicate better HRQL 07/18/2022 10/04/2022 04/17/2023 Role Function-Restrictive Transformed Score (range: 0-100) 80 80 51.43 Role Function-Preventive Transformed Score (range: 0-100) 90 100 75 Emotional Function Transformed Score (range: 0-100) 80 93.33 66.67 PHQ-9 07/18/2022 10/04/2022 04/17/2023 Score 2 1 11 Studies to Review: No Labs to Review: Yes, on tegretol (rx by psychiatry). Latest Reference Range & Units 02/08/23 11:40 Sodium 136 - 144 mmol/L 139 Potassium 3.7 - 5.1 mmol/L 4.7 Chloride 97 - 105 mmol/L 105 CO2 22 - 30 mmol/L 23 BUN 7 - 21 mg/dL 12 Creatinine 0.58 - 0.96 mg/dL 0.73 Glucose 74 - 99 mg/dL 104 (H) Protein, Total 6.3 - 8.0 g/dL 6.9 Calcium 8.5 - 10.2 mg/dL 9.5 Magnesium 1.7 - 2.3 mg/dL 2.2 Albumin 3.9 - 4.9 g/dL 4.1 Bilirubin, Total 0.2 - 1.3 mg/dL 0.3 Alkaline Phosphatase 34 - 123 U/L 167 (H) ALT 7 - 38 U/L 19 AST 13 - 35 U/L 15 Anion Gap 9 - 18 mmol/L 11 (H): Data is abnormally high New Health Issues: No New Family History: No Review of Systems: Review of system: unchanged from the previous visit (sleep patterns, mood, energy, appetite, stress, exercising). Physical Examination: Vital Signs: No vital signs taken for this visit due to nature of virtual visit. General: well appearing, in no acute distress, alert Pain Behaviors: no pain behaviors observed Neurological: Mental Status: Alert and oriented to person, place and time. Affect is normal. Speech is spontaneous and fluent without dysarthria. Short and mcc memory, cognition and general fund of knowledge are good. Attention span and concentration are excellent. HEENT: Head is normocephalic and features were symmetric. Musculoskeletal: Patient able to sit up right in chair for entirety of visit. Cranial Nerves: III, IV, -EOMI: full. VII-face is symmetric without evidence of weakness. VIII-hearing intact. IMPRESSION: Chronic migraine without aura without status migrainosus, not intractable (primary encounter diagnosis) Status migrainosus Sky Zamudio is a 53 year old year old female, with a history of history of bipolar, migraine without aura, obesity s/p gastric bypass, GABY, with chronic daily headaches consistent with chronic migraine following up today virtually for migraines. Their neurological examination is essentially normal at this visit although this is limited due to nature of telehealth. She has not had her Ajovy injection since the end of February. While on Ajovy regularly she typically gets about 3-4 less severe migraines a month along with 3-4 slight headaches/month. These are both easily aborted with use of naratriptan or Fioricet. She noticed that the week before her next injection is due there is an increase in migraines/headaches but are easily resolved with abortive therapies. She is about 8 days overdue for Ajovy due to prior authorization issues. She reports a migraine for the past six days associated with photophobia, phonophobia, N/V. She reports Dr. Del Castillo gave her dexamethasone in the past that helped her break a migraine cycle. PLAN: Continue Ajovy-will get PA Continue Tegretol 300 mg BID- she is making appointment with psychiatry to re-establish. Continue naratriptan <10 days per month Continue fioricet < 5 days per month Dexamethasone bridge therapy Prior Authorization: Sky Zamudio has been previously approved for Calcitonin Gene Related Peptide Monoclonal Antibody (CGRP MAB) (Fremanezumab). The patient has demonstrated the following: Patient reduction in overall migraine days: Yes Patient reduction in moderate-severe migraine days: Yes Individual has obtained clinical benefit deemed significant by individual or prescriber: Yes Patient's quality of life and ability to perform ADLs has improved: Yes We suggest the patient continue treatment with CGRP MAB Fremanezumab. The following preventative medications have been tried for three or more months without benefit: Anti-Convulsant Carbamazepine (Tegretol) Divalproex sodium (Depakote) Gabapentin (Neurontin) Lamotrigine (Lamictal) Topiramate (Topamax, Trokendi XL, Qudexy) Zonisamide (Zonegram) Anti-Depressant and Antipsychotic Amitriptyline (Elavil) Nortriptyline (Pamelor, Aventyl) Buspirone Blood Pressure Verapamil (Verelan, Calan, Isoptin) Hydrochlorothiazide MABs Erenumab (Aimovig) Works for only 2 weeks and then wears off. Fremanezumab (Ajovy) Worked good but insurance stopped covering. Supplements Magnesium The following abortive medications have been tried but require high frequency use which can lead to Medication Overuse Headache: Analgesic Acetaminophen with codeine (Tylenol #3) Butalbital/acetaminophen/caffeine (Fioricet) Hydrocodone/Acetaminophen (Vicodin, [place]) Ketorolac (Toradol) Meloxicam (Mobic) Oxycodone/Acetaminophen (Percocet) Anti-Anxiety Diazepam (Valium) Anti-Migraine Isometheptene/Acetaminophen/Dichloralp henazone (Midrin) Naratriptan (Amerge) Rizatriptan (Maxalt) Sumatriptan (Imitrex, Sumavel) GEPANTS Rimegepant (Nurtec) Over the Counter Medications Acetaminophen/Aspirin/Caffeine (Excedrin, Goody s) Ibuprofen (Advil, Motrin) Naproxen sodium (Aleve) HEADACHE MANAGEMENT: (You are the primary guardian of your health and headache. Keep track of all medications: This includes the reason for use, side effects and benefits.) MEDICATION TREATMENT: Medications to Start Taking fremanezumab-vfrm (AJOVY AUTOINJECTOR) 225 mg/1.5 mL auto-injector Inject 1.5 mL subcutaneously once every month. naratriptan (AMERGE) 2.5 mg tablet Take 1 tab at migraine onset. May repeat once in 2 hours if needed. dexAMETHasone (DECADRON) 4 mg tablet Take 1 tab tid on day 1, then bid on day 2, then once on day 3. RESEARCH: None at this time Follow-up: 3 months, PRN Level of Service: Virtual Visit 40 minutes Pastora Glynn APRN.MIGUE Headache Section [facility] April 17, 2023 documented in this encounter [facility] 04-15-2023 Miscellaneous Notes The following approved medication requests have been transmitted electronically. Requested Prescriptions Signed Prescriptions Disp Refills acetaminophen 325 mg-caffeine 40 mg-butalbital 50 mg (FIORICET) per tablet 20 tablet 5 Sig: Take 1 tablet by mouth every 6 hours if needed for headache. No more than 5 days per month. Authorizing Provider: JONA BOYER APRN.CNP PDMP website checked and validated. All prescriptions have been APPROPRIATELY filled. No suspicious activity was identified. 04/15/2023 by Jona Boyer APRN.CNP Physician: Merlin Call from patient requesting refill. Please E-Scribe Last OV: 09/14/2022 with Merlin Future OV: Not Scheduled. Requested Prescriptions Pending Prescriptions Disp Refills acetaminophen 325 mg-caffeine 40 mg-butalbital 50 mg (FIORICET) per tablet 20 tablet 5 Sig: Take 1 tablet by mouth every 6 hours if needed for headache. No more than 5 days per month. Pharmacy Name: [facility] documented in this encounter [facility] 04-11-2023 Miscellaneous Notes Patient has been identified by name and date of : Yes, Provider Keyshawn Date 04/11/23 Time 11:10am Patient phones for refill(s): Patient comment: Going to [place] will need my epip just in case I get stung or something Requested Prescriptions Pending Prescriptions Disp Refills EPINEPHrine (EPIPEN) 0.3 mg/0.3 mL auto-injector 2 Each 1 Sig: Inject subcutaneously. use as directed if needed after insect bite Date of last office visit in primary care: 02/25/23 Last 2 Encounter Wt Readings: Date: Wt: 03/20/2023 120.7 kg (266 lb 3.2 oz) 02/25/2023 121.6 kg (268 lb) Please advise. Thank you. Joan Bowen LPN documented in this encounter [facility] 04-11-2023 Miscellaneous Notes Patient has been identified by name and date of : Yes, Provider Keyshawn Date 04/11/23 Time 11:08am Patient phones for refill(s): Patient comment: Helping with stomach Requested Prescriptions Pending Prescriptions Disp Refills multivitamin (TAB-A-JESSICA) tablet 30 tablet 5 Sig: Take 1 tablet by mouth once daily. Lactobacillus acidophilus (FLORAJEN ACIDOPHILUS) 20 billion cell capsule 30 capsule 11 Sig: Take 1 capsule by mouth once daily. Date of last office visit in primary care: 02/25/23 Last 2 Encounter Wt Readings: Date: Wt: 03/20/2023 120.7 kg (266 lb 3.2 oz) 02/25/2023 121.6 kg (268 lb) Please advise. Thank you. Joan Bowen LPN documented in this encounter [facility] 04-11-2023 Miscellaneous Notes Patient has been identified by name and date of : Yes, Provider Keyshawn Date 04/11/23 Time 11:06am Patient phones for refill(s): Patient Comment: Been dizzy (meclizine) Patient Comment: I have been really nauseated (ondansetron) Requested Prescriptions Pending Prescriptions Disp Refills meclizine (ANTIVERT) 25 mg tab 30 tablet 2 Sig: take 1/2 to 1 tablet by mouth every 6 hours if needed for dizziness ondansetron orally disintegrating (ZOFRAN ODT) 4 mg disintegrating tablet 30 tablet 1 Sig: Take 1 tablet by mouth every 6 hours as needed for nausea/vomiting. Date of last office visit in primary care: 02/25/23 Last 2 Encounter Wt Readings: Date: Wt: 03/20/2023 120.7 kg (266 lb 3.2 oz) 02/25/2023 121.6 kg (268 lb) Please advise. Thank you. Joan Bowen LPN documented in this encounter [facility] 04-10-2023 Miscellaneous Notes Pt left VM c/o persistent migraine x 3 days. Called pt back, unable to reach, unable to leave VM- box full. documented in this encounter [facility] 03-20-2023 History of Present illness Narrative FOLLOW UP VISIT - ENDOSCOPY NAME: Sky Zamudio [facility] NO.: [id number] DATE OF SERVICE: March 20, 2023 : 1970 REFERRING PHYSICIAN: Elliott Mahajan MD Sky is a patient I am following for abdominal pain and chronic constipation. Iperformed upper and lower endoscopy on 12/18/22. The patient was found to have some gastritis and esophagitis on EGD. Colonoscopy showed fair bowel prep, no obvious abnormalities. Repeat colonoscopy was recommended based on the suboptimal bowel prep. Pathology demonstrated: FINAL DIAGNOSIS A. Stomach, antrum, biopsy: - Gastric antral/oxyntic mucosa with no significant histopathologic findings. - No evidence of Helicobacter pylori organisms on H&E stain. B. Esophagus, distal, biopsy: - Gastric oxyntic mucosa with mild chronic inflammation. - Negative for intestinal metaplasia and dysplasia. - No squamous mucosa identified. Results were previously communicated via BeeTV. I had recommended miralax, increased fluid intake, tobacco cessation. The patient was seen by Radha Batista in follow-up who noted that the patient notes continued complaints since the procedure. She states are the same issues she was having prior to endoscopy-will get extremely bloated and tender throughout abdomen. She is passing flatus and BMs but small amounts. She does note she has not yet restarted her fiber supplement since prior to colonoscopy. Denies nausea or vomiting. KUB was obtained at that visit which demonstrated fecal loading. Final report in interim showed: The patient states she was actually doing well for a few weeks after taking laxatives again. She is now noting that her bowels are moving but still notes recurring epigastric pain. When questioned about lifestyle issues which could cause gastritis, the patient notes she is still smoking cigarettes. Due to knee and shoulder pain she has been taking meloxicam and ibuprofen. She drinks somewhat sporadically and is under significant stress due to family psychosocial issues VITALS: Blood pressure 130/88, pulse 120, temperature (!) 33.9 C (93 F), height 162.6 cm (5' 4 ), weight 120.7 kg (266 lb 3.2 oz), last menstrual period 05/14/2015, SpO2 93 %. General: patient is alert, cooperative, pleasant and in no acute distress On examination, the abdomen is benign. mild diffuse tenderness in the upper abdomen Assessment IMPRESSION: chronic constipation, epigastric pain with risk factors for persistent gastritis PLAN: I have ordered a repeat KUB to assess for fecal loading. I have ordered Carafate in addition to her Prevacid to see if this improves her symptoms. I wished her luck with her lifestyle stressful events and asked her to cut down on nicotine use. Diagnoses: (K59.09) Other constipation (primary encounter diagnosis) (R10.13) Epigastric pain Hilda Edwards MD documented in this encounter [facility] 03-20-2023 History of Present illness Narrative Radiology Service Progress Note PATIENT NAME: Sky Zamudio DATE OF SERVICE: March 20, 2023 TIME: 4:11 PM PATIENT IDENTITY VERIFICATION COMPLETED USING TWO (2) IDENTIFIERS: Name and Date of confirmed by patient verbally. FALL SCREENING: Has the patient had 2 falls in the last year or 1 fall with injury or currently using an Ambulatory Assistive Device (Walker, Cane, Wheelchair, Crutches, etc.)? No PATIENT GENDER DATA: Female. status: : No status: NO. PATIENT RELEVANT IMPLANT DATA REVIEWED: Yes RADIOLOGY DEPARTMENT: General X-ray: Exam(s) Completed: Abdomen X-Ray: Abdomen PERIPHERAL IV DATA: Not applicable SIGNED BY: RT Theresa(R) March 20, 2023 4:11 PM documented in this encounter [facility] 03-12-2023 Miscellaneous Notes Spoke with pt and information listed below given. Pt verbalizes understanding. Syeda Barrett LPN Ok for the pyridium, script sent. Agree with follow up if symptoms not improved or worsening or persistent. Pt called in and reports she has been in pain for a while now and nothing so far has helped. Pt is asking if provider would order her some Pyridium to help with her kidney pain, bladder pain, and frequency/urgency urinating. She states the last 4 days is was intermittent but today it has been constant was about a 7-9/10 throbbing and burning. She reports she is still having the lower back pain but it has been intermittent. She reports she has also been taking cranberry pills. Pt denies ever having issues with kidney stones and reports she hasn't seen any when she has been going. Pt reports her urine is counter cutter in color with a stronger odor. Pt reports she doesn't know if this has anything to do with that, but she has been having severe migraines the past couple days and has been having to take two of her migraine pills. Pt reports she takes Fioricet and Naratriptan for her migraines and she has taken one of each today and is coming up to where is is due for one again. She states it helps for about 30 min then comes right back. Pt states the week before her monthly migraine injection is due she gets migraines, and she is due next week. Pt was counseled that if pain doesn't get better she needs to go to have someone take her to the ER, Pt verbalized understanding. Pt said she would send a BeeTV message to let provider know if she went to the ER. Please call and advise. documented in this encounter [facility] 02-25-2023 History of Present illness Narrative SUBJECTIVE Sky Zamudio is a 52 year old female here today for acute concern. Chief Complaint Patient presents with: UTI: with low back pain with dysuria x 3 days HPI Sky Zamudio is a 52 year old female established patient of Dr. Mahajan. Presents today for possible UTI. Onset a few days ago but had symptoms the end of January. Pain behind the belly button . Denies fever, or chills. Associated frequency, low back pain, nausea, vomiting. Urine is yellow in color, no blood is visible. Has tried to increase fluid intake. Has a history of previous UTI's. No prior kidney stones that she knows of. Treated with Macrobid recently, did not really improve. No constipation or diarrhea. She has noticed an increased vaginal odor and discharge. Strong odor. Thin, watery, brown discharge. Prior issues with BV. Her medications were reviewed today and her list is now up to date. Medications Current Outpatient Medications Medication Sig diclofenac (VOLTAREN) 1 % topical gel apply topically to affected area as directed if needed iqnhimyi-tmsvsbswu-yiykmksjdhrqvj (CORTISPORIN) otic solution Use 3 Drops in the ears four times daily. As directed albuterol HFA (VENTOLIN HFA) 90 mcg/actuation inhaler Inhale 2 Puffs as instructed every 4 hours as needed. zolpidem (AMBIEN) 10 mg Take 1 tablet by mouth daily at bedtime for 120 days. bisacodyl EC (DULCOLAX, BISACODYL,) 5 mg EC tablet Take 1 tablet by mouth once daily as needed for constipation. lansoprazole (PREVACID) 30 mg capsule Take 1 capsule by mouth twice daily. polyethylene glycol 3350 17 gram/dose powder Take 17 g by mouth once daily. Dissolve dose in 4 - 8 ounces of liquid and take as directed. ondansetron orally disintegrating (ZOFRAN ODT) 4 mg disintegrating tablet Take 1 tablet by mouth every 6 hours as needed for nausea/vomiting. naratriptan (AMERGE) 2.5 mg tablet Take 1 tab at migraine onset. May repeat once in 2 hours if needed. meloxicam (MOBIC) 15 mg tablet Take 1 tablet by mouth once daily. Benzonatate 200 mg capsule Take 1 capsule by mouth three times daily as needed. Cholecalciferol, Vitamin D3, 50 mcg (2,000 unit) cap Take 2 capsules by mouth once daily. montelukast (SINGULAIR) 10 mg tablet Take 1 tablet by mouth daily at bedtime. triamcinolone acetonide (NASACORT AQ) 55 mcg nasal inhaler Use 2 Sprays in the nose once daily as needed. cyclobenzaprine (FLEXERIL) 10 mg tablet Take 1 tablet by mouth three times daily as needed. fremanezumab-vfrm (AJOVY AUTOINJECTOR) 225 mg/1.5 mL auto-injector Inject 1.5 mL subcutaneously once every month. EPINEPHrine (EPIPEN) 0.3 mg/0.3 mL auto-injector Inject subcutaneously. use as directed if needed after insect bite carBAMazepine XR (TEGRETOL XR) 100 mg 12 hr tablet Take 1 tablet by mouth twice daily. Combine with 200 mg twice daily for 300 mg twice daily dose. carBAMazepine XR (TEGRETOL XR) 200 mg 12 hr tablet Take 1 tablet by mouth twice daily. Add to 100 mg twice daily for 300 mg twice daily total dose. acetaminophen 325 mg-caffeine 40 mg-butalbital 50 mg (FIORICET) per tablet Take 1 tablet by mouth every 6 hours if needed for headache. No more than 5 days per month. ipratropium 20 mcg-albuterol 100 mcg (COMBIVENT RESPIMAT) 20-100 mcg/actuation inhaler Inhale 1 Puff as instructed four times daily as needed for wheezing/shortness of breath. loratadine-pseudoephedrine ER (LORATA-D) 10-240 mg Tb24 Take 1 tablet by mouth once daily. Lactobacillus acidophilus (FLORAJEN ACIDOPHILUS) 20 billion cell cap Take 1 capsule by mouth once daily. terconazole (TERAZOL 7) 0.4 % vaginal cream Use 1 Applicator vaginally daily at bedtime. estrogens conjugated (PREMARIN) 0.3 mg tablet Take 0.3 mg by mouth. Taking 3 times per week. Prescribed by outside OB. multivitamin (TAB-A-JESSICA) tablet Take 1 tablet by mouth once daily. meclizine (ANTIVERT) 25 mg tab take 1/2 to 1 tablet by mouth every 6 hours if needed for dizziness hydroCHLOROthiazide (HYDRODIURIL, ESIDRIX) 25 mg tablet Take 1 tablet by mouth once daily as needed (fluid retention). metroNIDAZOLE (FLAGYL) 500 mg tablet Take 1 tablet by mouth twice daily for 7 days. nicotine polacrilex (NICORETTE) 2 mg gum Take 1 Each by mouth every 2 hours as needed. (Patient not taking: Reported on 02/25/2023) No current facility-administered medications for this visit. ALLERGIES Allergen Reactions Bactrim [Sulfametho* GI Upset complained of stomach cramps though had tolerated in the past Bees Floxin [Ofloxacin] interaction with valproic acid; caused bipolar exacerbation with depression ( bipolar low ) Ivp Dye [Iodine] Anaphylaxis Keflex [Cephalexin] Mental Status Change, Itching bipolar low at same time; not sure if from med; no rash was associated Mangoes Other environmental Smoke Shortness of Breath Topamax [Topiramate] Dizziness Ultram [Tramadol Hc* Other: See Comments Migraine headaches ACTIVE PROBLEM LIST Dysuria - 02/08/2023 Intractable Chronic Migraine Without Aura and With Status Migrainosus - 01/17/2022 Status Migrainosus - 12/31/2019 Migraine Without Aura and Without Status Migrainosus, Not Intractable - 12/31/2019 Anxiety - 12/31/2019 Insomnia - 12/31/2019 Chronic Daily Headache - 03/31/2019 Atrophic Vaginitis - 07/14/2018 Vitamin D Deficiency - 03/03/2018 Axillary Mass - 05/06/2016 Chronic Migraine Without Aura, With Intractable Migraine, So Stated, With Status Migrainosus - 04/18/2016 Intractable Chronic Migraine Without Aura and Without Status Migrainosus - 04/18/2016 Medication Overuse Headache - 04/18/2016 Rebound Headache - 04/18/2016 Mixed Incontinence - 04/19/2015 Body Mass Index 40.0-44.9, Adult (Hcc) - 10/30/2014 Nausea and Vomiting - 10/30/2014 Ventral Hernia - 06/10/2014 Strain of Rectus Abdominis Muscle - 06/10/2014 Abdominal Pain - 06/10/2014 Dysmenorrhea - 05/29/2010 Comment: Possible adenomyosis on us Irregular Menstrual Cycle - 05/29/2010 Female Stress Incontinence - 05/29/2010 Cystocele, Midline - 05/29/2010 Acute Gastritis Without Mention of Hemorrhage - 04/04/2010 Migraine Headache - 01/25/2010 Unspecified Sleep Apnea - 12/12/2007 Comment: 12-03-07: effic 87%, no stage III, AHI 5.5, REM 20.9, supine 3, snoring 98%-rec CPAP trial CPAP 12-24-07: effic 70%, AHI 4.5 on 10 with sat above 90% (79% low prior to treatment) Equinus Deformity of Foot, Acquired - 11/05/2007 Anxiety State, Unspecified - 07/01/2007 Calcaneal Spur - 06/25/2007 Allergic Rhinitis, Cause Unspecified - 06/11/2007 Carpal Tunnel Syndrome - 08/27/2006 Irritable Bowel Syndrome - 05/23/2006 Obesity, Unspecified Mild Persistent Asthma Without Complication - 03/25/2006 Other Specified Disorder of Gallbladder - 11/13/2005 Esophageal Reflux Chronic Rhinitis Bipolar Disorder, Unspecified (Hcc) Social History Tobacco Use Smoking status: Every Day Types: Cigars Smokeless tobacco: Never Tobacco comments: smokes 4 Clove cigars daily. Vaping Use Vaping Use: Never used Substance Use Topics Alcohol use: Yes Comment: once a month Drug use: Yes Types: Marijuana Comment: Lots of coffee per day/uses marijuana when pain gets severe Review of Systems Respiratory: Negative. Cardiovascular: Negative. OBJECTIVE BP 132/84 Pulse 102 Temp (Src) 96.7 (Tympanic) Wt 268 lb (121.6kg) SpO2 98% LMP 05/14/2015 Physical Exam Vitals and nursing note reviewed. Constitutional: General: She is awake. She is not in acute distress. Appearance: Normal appearance. She is well-developed and well-groomed. She is not ill-appearing, toxic-appearing or diaphoretic. HENT: Head: Normocephalic. Right Ear: External ear normal. Left Ear: External ear normal. Nose: Nose normal. Eyes: General: Vision grossly intact. Conjunctiva/sclera: Conjunctivae normal. Pupils: Pupils are equal, round, and reactive to light. Neck: Vascular: No JVD. Trachea: Trachea normal. Pulmonary: Effort: Pulmonary effort is normal. No accessory muscle usage, prolonged expiration or respiratory distress. Abdominal: Tenderness: There is no right CVA tenderness or left CVA tenderness. Musculoskeletal: Cervical back: Neck supple. Skin: General: Skin is warm and dry. Capillary Refill: Capillary refill takes less than 2 seconds. Neurological: General: No focal deficit present. Mental Status: She is alert and oriented to person, place, and time. Mental status is at baseline. Psychiatric: Attention and Perception: Attention and perception normal. Mood and Affect: Mood and affect normal. Speech: Speech normal. Behavior: Behavior normal. Behavior is cooperative. Thought Content: Thought content normal. Cognition and Memory: Cognition and memory normal. Judgment: Judgment normal. ASSESSMENT/PLAN: 1. Bacterial vaginosis - ICD9: 616.10, 041.9, ICD10: N76.0, B96.89 (primary diagnosis) Suspect her symptoms are stemming from BV. Start flagyl, if persistent we will have her return for a pelvic exam and obtain swabs - METRONIDAZOLE 500 MG TABLET 2. Dysuria - ICD9: 788.1, ICD10: R30.0 Given her dysuria we can culture her urine to ensure no signs of infection. - UA DIP B/O - URINE CULTURE Portions of this note have been entered by ancillary staff. I have reviewed and when necessary edited, so that they are an adequate record of my encounter with this patient Please note that parts of this document were created using voice recognition software and therefore may contain grammatical errors. Patient verbalizes understanding of instructions from today's visit and in agreement with treatment plan. Questions answered. Agrees to call the office if questions, concerns of issues with acute symptoms not improving or if they worsen. Return if symptoms worsen or fail to improve, for Keep next scheduled appointment.. Molly Simpson APRN-MIGUE documented in this encounter [facility] 02-25-2023 Instructions Gely Miramontes LPN - 02/25/2023 2:53 PM EDT Images from the original note were not included. Urinary Problem-When to Seek Help? Symptoms of a urinary problem may lead to a bladder infection. Women are at greater risk of a urinary tract infection than are men. Most urinary tract infections in women are caused by bacteria and involve the lower urinary tract including the bladder and urethra. Symptoms: Pain or burning when passing urine, urgency, frequency, blood in the urine, difficult emptying your bladder, and lower abdominal fullness or pressure. Common Causes: Sexual intercourse, menopause, constipation, uncontrolled diabetes, dehydration and feminine products such as tampons, and kidney stones. When to Get Help: Seek medical attention if you get frequent bladder infections, urinary concerns such as leakage, blood in the urine or frequent need to urinate. You may be recommended to get help from a specialist, such as a urologist. Diagnosis & Treatment: Lab testing may include: urinalysis, and urine culture that can be collected in the lab or walk-in clinic. Most bladder infections can easily be treated. A physician, nurse practitioner or physician state tested nursing assistant may treat with a short course of an antibiotic. Delaying treatment can lead to worsening symptoms, like a kidney infection. Self-Care: Avoid a full bladder, bubble baths, bath oils, food and beverages that may irritate the bladder such as caffeine. Avoid spermicide foam and diaphragms Void before and after sexual intercourse Wipe front to back after using the bathroom. Stay hydrated Stop Smoking Follow-up Care: Follow up testing is not needed in healthy young women if symptoms resolve. documented in this encounter [facility] 02-13-2023 Miscellaneous Notes Patient calling with an update for Americo GUSTAFSON to advise, please. Patient was seen by Dr. Mahajan on 02/08 and was treated for right ear eustachian tube disorder. Pt states she is on Day 5 of treatment and right ear has not improved. Continues with right ear discomfort, some brownish/red dry drainage from ear, sinus pressure, green/yellow sinus drainage, and some blood at times when sneezing. Denies fever or chills or other sinus sx's. Per 02/08 OV note: Can refer to ENT if not getting better . Pt asking if provider wishes to order anything else at this time or should she see ENT, or other advise? Will need referral placed if she should see ENT. Patient states she continues Macrobid for cystitis -on Day 5 of treatment. Reports no improvement in sx's. Continues with urinary frequency-urinating about every 30 minutes, burning and low back pain. No fever or chills and no N/V/D. Per 02/08 OV note: Consider re-eval with urology or longer term treatment . Please advise patient. Patient states she believes she has a vaginal yeast infection now. Having vaginal itching, irritation and burning. Asking if diflucan can be sent to [facility]? Script pended for review. Please call patient with provider's response. Thank you. documented in this encounter [facility] 02-08-2023 Elliott Lerner MD - 02/08/2023 11:09 AM EDT May increase Nasacort to taking twice daily if once daily not adequate. Go back to once daily as needed once settles down. documented in this encounter [facility] 02-08-2023 History of Present illness Narrative This note was created using MOVE Guidesriter. Subjective Sky Zamudio is a 52 year old female. Patient presents with: Established Patient: X 3 days right ear pain SUBJECTIVE: Sky Zamudio is a 52 year old year old lady here today for follow up appointment for review of medical conditions. Right ear pain. Side that AC is pointing so goes by her even if not directly at the ear. Some mild congestion of nose noted. Tried Nasacort and that helped with the congestion. Has had wax in ear and got out yesterday some brown cerumen.Still has pressure and pain. Itching, burning, frequency and lower back pain. No fevers or chills. No blood in urine. Feels pressure and pain in her ear. No pain with swallowing. Noted that bowels are doing better. Long stool. Doing better with drinking more water. Eating the oatbran, applesauce and prune juice mixture. Working quitting smoking again (stressors triggered). Noted stressors lately (dog really ill; cancer and had a stroke). Needed refill for Xanax. Can last for a few moths but when stressful times, needs sometimes monthly for a while. PAST MEDICAL HISTORY Diagnosis Date Abdominal pain, periumbilic Acute gastritis without mention of hemorrhage Bipolar disorder, unspecified (HCC) Chronic rhinitis Closed fracture of navicular (scaphoid) bone of foot 12/10/2011 Contact dermatitis and other eczema, due to unspecified cause Diaphragmatic hernia without mention of obstruction or gangrene Dysmenorrhea decreased Esophageal reflux Excessive or frequent menstruation Heavy periods resolved Irregular menstrual cycle Irregular periods Migraine headache Obesity, unspecified Other specified gastritis SLEEP APNEA NOS 12/12/200708: effic 87%, no stage III, AHI 5.5, REM 20.9, supine 3, snoring 98%-rec CPAP trial Stress incontinence Unspecified asthma(493.90) Unspecified symptom associated with female genital organs Current Outpatient Medications Medication Sig albuterol HFA (VENTOLIN HFA) 90 mcg/actuation inhaler Inhale 2 Puffs as instructed every 4 hours as needed. zolpidem (AMBIEN) 10 mg Take 1 tablet by mouth daily at bedtime for 120 days. bisacodyl EC (DULCOLAX, BISACODYL,) 5 mg EC tablet Take 1 tablet by mouth once daily as needed for constipation. lansoprazole (PREVACID) 30 mg capsule Take 1 capsule by mouth twice daily. polyethylene glycol 3350 17 gram/dose powder Take 17 g by mouth once daily. Dissolve dose in 4 - 8 ounces of liquid and take as directed. ondansetron orally disintegrating (ZOFRAN ODT) 4 mg disintegrating tablet Take 1 tablet by mouth every 6 hours as needed for nausea/vomiting. naratriptan (AMERGE) 2.5 mg tablet Take 1 tab at migraine onset. May repeat once in 2 hours if needed. meloxicam (MOBIC) 15 mg tablet Take 1 tablet by mouth once daily. Benzonatate 200 mg capsule Take 1 capsule by mouth three times daily as needed. Cholecalciferol, Vitamin D3, 50 mcg (2,000 unit) cap Take 2 capsules by mouth once daily. montelukast (SINGULAIR) 10 mg tablet Take 1 tablet by mouth daily at bedtime. diclofenac (VOLTAREN) 1 % topical gel apply topically as directed if needed nitrofurantoin monohydrate and macrocrystal (MACROBID) 100 mg capsule Take 1 capsule by mouth twice daily. nicotine polacrilex (NICORETTE) 2 mg gum Take 1 Each by mouth every 2 hours as needed. triamcinolone acetonide (NASACORT AQ) 55 mcg nasal inhaler Use 2 Sprays in the nose once daily as needed. cyclobenzaprine (FLEXERIL) 10 mg tablet Take 1 tablet by mouth three times daily as needed. fremanezumab-vfrm (AJOVY AUTOINJECTOR) 225 mg/1.5 mL auto-injector Inject 1.5 mL subcutaneously once every month. EPINEPHrine (EPIPEN) 0.3 mg/0.3 mL auto-injector Inject subcutaneously. use as directed if needed after insect bite carBAMazepine XR (TEGRETOL XR) 100 mg 12 hr tablet Take 1 tablet by mouth twice daily. Combine with 200 mg twice daily for 300 mg twice daily dose. carBAMazepine XR (TEGRETOL XR) 200 mg 12 hr tablet Take 1 tablet by mouth twice daily. Add to 100 mg twice daily for 300 mg twice daily total dose. acetaminophen 325 mg-caffeine 40 mg-butalbital 50 mg (FIORICET) per tablet Take 1 tablet by mouth every 6 hours if needed for headache. No more than 5 days per month. loratadine-pseudoephedrine ER (LORATA-D) 10-240 mg Tb24 Take 1 tablet by mouth once daily. Lactobacillus acidophilus (FLORAJEN ACIDOPHILUS) 20 billion cell cap Take 1 capsule by mouth once daily. terconazole (TERAZOL 7) 0.4 % vaginal cream Use 1 Applicator vaginally daily at bedtime. estrogens conjugated (PREMARIN) 0.3 mg tablet Take 0.3 mg by mouth. Taking 3 times per week. Prescribed by outside OB. multivitamin (TAB-A-JESSICA) tablet Take 1 tablet by mouth once daily. plakxsqk-yfykxswvg-fakozpuyjhhsgi (CORTISPORIN) otic solution Use 3 Drops in the ears four times daily. (Patient taking differently: Use 3 Drops in the ears as needed.) meclizine (ANTIVERT) 25 mg tab take 1/2 to 1 tablet by mouth every 6 hours if needed for dizziness hydroCHLOROthiazide (HYDRODIURIL, ESIDRIX) 25 mg tablet Take 1 tablet by mouth once daily as needed (fluid retention). ipratropium 20 mcg-albuterol 100 mcg (COMBIVENT RESPIMAT) 20-100 mcg/actuation inhaler Inhale 1 Puff as instructed four times daily as needed for wheezing/shortness of breath. No current facility-administered medications for this visit. Review of Systems Objective BP 111/71 Pulse 97 Temp 36.7 C (98 F) Resp 18 Wt 121.6 kg (268 lb) LMP 05/14/2015 SpO2 97% BMI 46.00 kg/m Physical Exam Constitutional: Appearance: Normal appearance. She is obese. HENT: Head: Comments: Mild maxillary sinus tenderness Right Ear: Tympanic membrane, ear canal and external ear normal. Left Ear: Tympanic membrane, ear canal and external ear normal. Eyes: Conjunctiva/sclera: Conjunctivae normal. Neurological: General: No focal deficit present. Mental Status: She is alert. Assessment and Plan Encounter Diagnosis ICD-10-CM 1. Disorder of Eustachian tube, right H69.91 See patient instructions for using Nasonex. Can refer to ENT if not getting better 2. Acute cystitis without hematuria N30.00 nitrofurantoin monohydrate and macrocrystal (MACROBID) 100 mg capsule Several episodes since last fall. Consider re-eval with urology or longer term treatment 3. Anxiety F41.9 ALPRAZolam (XANAX) 0.5 mg tablet 4. Burning with urination R30.0 UA DIP, URINE (POC) URINE CULTURE 5. Frequency of urination R35.0 UA DIP, URINE (POC) URINE CULTURE 6. Acute midline low back pain, unspecified whether sciatica present M54.50 URINE CULTURE 7. Encounter for long-term current use of medication Z79.899 LIPID PANEL, NONFASTING Above issues addressed with patient. Patient involved in shared decision making for management of medical issues. History and medications reviewed. Epic updated as needed Refills and/or prescriptions taken care of and meds adjusted as indicated after reviewed history, exam and labs. Health Maintenance reviewed. Updated record and/or ordered tests as recorded. Encouraged on efforts at healthy diet and regular exercise and adequate sleep. Discussed above. Further evaluation and treatment as indicated. Referrals as needed Elliott Mahajan MD documented in this encounter [facility] 02-06-2023 Miscellaneous Notes VALENTE 01/27/23 Next OV 06/09/23 Spoke to pharmacy which confirms patient has no refill on prescription requested. Patient has been identified by name and date of : Yes Last office visit in this department: 01/27/2023 RX INSTRUCTIONS: Patient aware RX will be sent to pharmacy. No need to notify patient. Patient phones requesting refills as follows: Requested Prescriptions Pending Prescriptions Disp Refills albuterol HFA (VENTOLIN HFA) 90 mcg/actuation inhaler 1 Each 11 Sig: Inhale 2 Puffs as instructed every 4 hours as needed. Please review and advise. Bhumika Fraga documented in this encounter [facility] 01-31-2023 Miscellaneous Notes The following approved medication requests have been transmitted electronically. Requested Prescriptions Signed Prescriptions Disp Refills zolpidem (AMBIEN) 10 mg 30 tablet 3 Sig: Take 1 tablet by mouth daily at bedtime for 120 days. Authorizing Provider: ELLIOTT MAHAJAN MD Patient has been identified by name and date of : Yes, Provider Dr. Beasley Date 01/31/23 Time 8:43 am Pharmacy phones for refill(s): Requested Prescriptions Pending Prescriptions Disp Refills zolpidem (AMBIEN) 10 mg [Pharmacy Med Name: ZOLPIDEM TARTRATE 10 MG TABLET] 30 tablet Sig: take 1 tablet by mouth at bedtime if needed Date of last office visit in primary care: 01/27/23 next apt 06/09/23 Last 2 Encounter Wt Readings: Date: Wt: 01/27/2023 118.4 kg (261 lb) 12/24/2022 122.8 kg (270 lb 12.8 oz) Previous labs/tests for medication: Not applicable Thank you. Syeda Barrett LPN documented in this encounter [facility] 01-27-2023 Instructions Elliott Mahajan MD - 01/27/2023 5:17 PM EDT Miralax 1 to 2 scoops daily in 4 to 8 ounces water if needed to keep bowels moving. Okay to adjust to dose needed to continue moving bowels daily. Might need just 1 teaspoon Apple sauce, prune juice and oat bran--mix equal parts and soak overnight in refrigerator. Can eat 1 to 2 tablespoons daily. Okay to try Phill seeds starting 1 teaspoons per day. Can soak in water then drink that. documented in this encounter [facility] 01-27-2023 History of Present illness Narrative This note was created using [employer] Guides[employer]. Subjective Sky Zamudio is a 52 year old female. No chief complaint on file. SUBJECTIVE: Sky Zamudio is a 52 year old year old lady here today for follow up appointment for review of medical conditions: constipation for about 1 month. Used to go 4 times a day then a couple months ago, constipation started. Was seen by Dr. Edawrds and Radha Batista in General Surgery department at [facility]. They recommended GI evaluation if problems not improved with daily Miralax. 2 Dulcolax yesterday and small soft stool today. Was taking Dulcolax daily since prescribed. Prescription for as needed bisacodyl EC was refilled 01/11/23. Did not start Miralax daily since did not know as on the AVS instructions. Did stay on Fiberchews daily. 16 ounces of water 4 bottles per day. Getting fruits, veggies and frosted mini-wheats and sometimes raisin bran. Apple cider and apples sauce. A week ago Friday had to move bowels for 2 days. Now back to constipation. Not sure what ate that caused bowels to get moving. Noted that cabbage soup helps bowels to move. Still with GERD symptoms. Taking PPI BID as was prescribed. Nauseous from bowel issues--nausea triggers migraines. Zofran as needed when severe. Reviewed that was to get 6 month follow up with neurologist (Dr. Del Castillo)--will call to make appointment. Cut back on pasta. Cannot walk well yet because left pinky toe still hurts since broke it. Depression Screening 05/17/2022 07/18/2022 10/04/2022 01/27/2023 PHQ-2 Score 0 0 0 0 PHQ-9 Score - 2 1 - RAMONA-2 Total Score - 2 0 - Depression screening tool completed and reviewed. Based on score and interview, patient is not at risk for depression. Screening tool discussed with patient, and I recommended no further intervention at this time. PAST MEDICAL HISTORY Diagnosis Date Abdominal pain, periumbilic Acute gastritis without mention of hemorrhage Bipolar disorder, unspecified (HCC) Chronic rhinitis Closed fracture of navicular (scaphoid) bone of foot 12/10/2011 Contact dermatitis and other eczema, due to unspecified cause Diaphragmatic hernia without mention of obstruction or gangrene Dysmenorrhea decreased Esophageal reflux Excessive or frequent menstruation Heavy periods resolved Irregular menstrual cycle Irregular periods Migraine headache Obesity, unspecified Other specified gastritis SLEEP APNEA NOS 12/12/2007 12-03-07: effic 87%, no stage III, AHI 5.5, REM 20.9, supine 3, snoring 98%-rec CPAP trial Stress incontinence Unspecified asthma(493.90) Unspecified symptom associated with female genital organs Current Outpatient Medications Medication Sig meloxicam (MOBIC) 15 mg tablet Take 1 tablet by mouth once daily. Benzonatate 200 mg capsule Take 1 capsule by mouth three times daily as needed. Cholecalciferol, Vitamin D3, 50 mcg (2,000 unit) cap Take 2 capsules by mouth once daily. zolpidem (AMBIEN) 10 mg Take 1 tablet by mouth at bedtime as needed for up to 30 days. montelukast (SINGULAIR) 10 mg tablet Take 1 tablet by mouth daily at bedtime. diclofenac (VOLTAREN) 1 % topical gel apply topically as directed if needed nitrofurantoin monohydrate and macrocrystal (MACROBID) 100 mg capsule Take 1 capsule by mouth twice daily. nicotine polacrilex (NICORETTE) 2 mg gum Take 1 Each by mouth every 2 hours as needed. triamcinolone acetonide (NASACORT AQ) 55 mcg nasal inhaler Use 2 Sprays in the nose once daily as needed. cyclobenzaprine (FLEXERIL) 10 mg tablet Take 1 tablet by mouth three times daily as needed. fremanezumab-vfrm (AJOVY AUTOINJECTOR) 225 mg/1.5 mL auto-injector Inject 1.5 mL subcutaneously once every month. EPINEPHrine (EPIPEN) 0.3 mg/0.3 mL auto-injector Inject subcutaneously. use as directed if needed after insect bite carBAMazepine XR (TEGRETOL XR) 100 mg 12 hr tablet Take 1 tablet by mouth twice daily. Combine with 200 mg twice daily for 300 mg twice daily dose. carBAMazepine XR (TEGRETOL XR) 200 mg 12 hr tablet Take 1 tablet by mouth twice daily. Add to 100 mg twice daily for 300 mg twice daily total dose. acetaminophen 325 mg-caffeine 40 mg-butalbital 50 mg (FIORICET) per tablet Take 1 tablet by mouth every 6 hours if needed for headache. No more than 5 days per month. ipratropium 20 mcg-albuterol 100 mcg (COMBIVENT RESPIMAT) 20-100 mcg/actuation inhaler Inhale 1 Puff as instructed four times daily as needed for wheezing/shortness of breath. albuterol HFA (VENTOLIN HFA) 90 mcg/actuation inhaler Inhale 2 Puffs as instructed every 4 hours as needed. loratadine-pseudoephedrine ER (LORATA-D) 10-240 mg Tb24 Take 1 tablet by mouth once daily. Lactobacillus acidophilus (FLORAJEN ACIDOPHILUS) 20 billion cell cap Take 1 capsule by mouth once daily. terconazole (TERAZOL 7) 0.4 % vaginal cream Use 1 Applicator vaginally daily at bedtime. estrogens conjugated (PREMARIN) 0.3 mg tablet Take 0.3 mg by mouth. Taking 3 times per week. Prescribed by outside OB. multivitamin (TAB-A-JESSICA) tablet Take 1 tablet by mouth once daily. xaaiejiw-huurxlqiv-pvpjdgkeazgxgx (CORTISPORIN) otic solution Use 3 Drops in the ears four times daily. (Patient taking differently: Use 3 Drops in the ears as needed.) meclizine (ANTIVERT) 25 mg tab take 1/2 to 1 tablet by mouth every 6 hours if needed for dizziness hydroCHLOROthiazide (HYDRODIURIL, ESIDRIX) 25 mg tablet Take 1 tablet by mouth once daily as needed (fluid retention). bisacodyl EC (DULCOLAX, BISACODYL,) 5 mg EC tablet Take 1 tablet by mouth once daily as needed for constipation. lansoprazole (PREVACID) 30 mg capsule Take 1 capsule by mouth twice daily. polyethylene glycol 3350 17 gram/dose powder Take 17 g by mouth once daily. Dissolve dose in 4 - 8 ounces of liquid and take as directed. ondansetron orally disintegrating (ZOFRAN ODT) 4 mg disintegrating tablet Take 1 tablet by mouth every 6 hours as needed for nausea/vomiting. naratriptan (AMERGE) 2.5 mg tablet Take 1 tab at migraine onset. May repeat once in 2 hours if needed. No current facility-administered medications for this visit. Review of Systems Objective BP 112/62 Pulse 105 Temp 36.4 C (97.6 F) Resp 18 Wt 118.4 kg (261 lb) LMP 05/14/2015 SpO2 97% BMI 44.80 kg/m Physical Exam Constitutional: Appearance: Normal appearance. HENT: Head: Normocephalic. Eyes: Conjunctiva/sclera: Conjunctivae normal. Cardiovascular: Rate and Rhythm: Normal rate and regular rhythm. Heart sounds: Normal heart sounds. Pulmonary: Effort: Pulmonary effort is normal. Breath sounds: Normal breath sounds. Skin: General: Skin is warm and dry. Neurological: General: No focal deficit present. Mental Status: She is alert and oriented to person, place, and time. Psychiatric: Mood and Affect: Mood normal. Behavior: Behavior normal. Thought Content: Thought content normal. Judgment: Judgment normal. Assessment and Plan Encounter Diagnosis ICD-10-CM 1. Constipation, unspecified constipation type K59.00 bisacodyl EC (DULCOLAX, BISACODYL,) 5 mg EC tablet polyethylene glycol 3350 17 gram/dose powder 2. Gastroesophageal reflux disease, unspecified whether esophagitis present K21.9 exacerbated by constipation; mode lstay on BID PPI until reflux better controlled with taking care of constipation 3. Nausea R11.0 Due to reflux and constipation 4. Migraine without aura and without status migrainosus, not intractable G43.009 naratriptan (AMERGE) 2.5 mg tablet Noted to get 6 month follow up with neuro after was seen September for virtual visit. Noted increased migraines due to increasd nausea 5. Vitamin D deficiency E55.9 VITAMIN D 25 HYDROXY 6. Body mass index 40.0-44.9, adult ([facility]) Z68.41 COMP METABOLIC PANEL CBC LIPID PANEL BASIC HGB A1C MAGNESIUM BLD VITAMIN D 25 HYDROXY TSH BLD Weight coming down. Continue efforts. 7. Encounter for long-term current use of medication Z79.899 COMP METABOLIC PANEL CBC LIPID PANEL BASIC HGB A1C MAGNESIUM BLD VITAMIN D 25 HYDROXY TSH BLD Above issues addressed with patient. Patient involved in shared decision making for management of medical issues. History and medications reviewed. Epic updated as needed Refills and/or prescriptions taken care of and meds adjusted as indicated after reviewed history, exam and labs. Health Maintenance reviewed. Updated record and/or ordered tests as recorded. Encouraged on efforts at healthy diet and regular exercise and adequate sleep. I spent a total of 42 minutes on the date of the service which included preparing to see the patient, [id number] patient care, completing clinical documentation, performing a medically appropriate examination, counseling and educating the patient/family/caregiver, ordering medications, tests, or procedures, and independently interpreting results (not separately reported). Elliott Mahajan MD documented in this encounter [facility] 01-14-2023 Miscellaneous Notes Physician: Surendra griggs Call from patient requesting refill. Please E-Scribe Requested Prescriptions Pending Prescriptions Disp Refills meloxicam (MOBIC) 15 mg tablet 30 tablet 1 Sig: Take 1 tablet by mouth once daily. Pharmacy Name: [facility] Phone #: [phone] Gabby Carvajal LPN documented in this encounter [facility] 01-13-2023 Miscellaneous Notes Okayed Patient has been identified by name and date of : Yes Patient phones for refill(s): Requested Prescriptions Pending Prescriptions Disp Refills bisacodyl EC (DULCOLAX, BISACODYL,) 5 mg EC tablet 20 tablet 0 Sig: Take 1 tablet by mouth once daily as needed for constipation. Date of last office visit in primary care: 12/17/2022 Appt: 01/27/2023 Last 2 Encounter Wt Readings: Date: Wt: 12/24/2022 122.8 kg (270 lb 12.8 oz) 12/14/2022 121.3 kg (267 lb 6.4 oz) Previous labs/tests for medication: Not applicable Please advise. Thank you. Hailey Disla LPN documented in this encounter [facility] 12-25-2022 Miscellaneous Notes PATIENT NOTIFIED OF SAME. Thanks, I did not know about the my chart message, would still recommend doing what Radha advised but also okay for as needed daily use of dulcolax, sent in a script for 20 pills. See My chart message dated 12/25/2022. Any changes to recommendation below before call made to patient? Please let her know our office agrees with the recommendation from Radha, if other issues or symptoms persistent let us know. Patient calling to check on status of below request sent yesterday. Patient reports still no bowel movement and more abdominal pain. Pt was seen by Radha Batista PA-C in General Surgery today and was advised to: (COPIED): -Restart daily fiber supplement -Increase fluid intake -Daily miralax until bowels moving more regularly -If constipation persists despite these measures, would recommend GI evaluation If any red flag signs/symptoms such as severe abd pain or associated nausea/vomiting, go directly to ED Patient requesting PCP recommendations as well. Thank you. Patient calls to report that she continues to have trouble with constipation and that provider wanted to be notified right away if it continued. Patient hasn't had a normal bowel movement since before EGD/colonoscopy 12/18/2022. Patient reports hard rabbit pellets currently. Patient continues to have 5-7/10 abdominal pain with nausea on occasion. Afebrile. No vomiting. Patient is avoiding cheese and pushing fluids. Patient notified Dr. Edwards's office and has a follow up tomorrow 12/24/2022 with Radha Batista with another KUB. Patient has Dulcolax from 2019 on hand and asking if it is ok to take that or does provider want her to get something else to try? Eladia Beckett RN documented in this encounter [facility] 12-23-2022 History of Present illness Narrative Radiology Service Progress Note PATIENT NAME: Sky Zamudio DATE OF SERVICE: December 23, 2022 TIME: 2:36 PM PATIENT IDENTITY VERIFICATION COMPLETED USING TWO (2) IDENTIFIERS: Name and Date of confirmed by patient verbally. FALL SCREENING: Has the patient had 2 falls in the last year or 1 fall with injury or currently using an Ambulatory Assistive Device (Walker, Cane, Wheelchair, Crutches, etc.)? No PATIENT GENDER DATA: Female. status: : No status: NO. PATIENT RELEVANT IMPLANT DATA REVIEWED: Not Applicable RADIOLOGY DEPARTMENT: General X-ray: Exam(s) Completed: Abdomen X-Ray: Abdomen PERIPHERAL IV DATA: Not applicable SIGNED BY: RT Irlanda(R) December 23, 2022 2:36 PM documented in this encounter [facility] 12-23-2022 Miscellaneous Notes Contacted patient and scheduled for an appointment for 12/24 with Radha Batista. Also instructed pt to go to radiology for another KUB prior to appointment tomorrow.Jacqui Soler RN Please clarify with patient whether this is the same pain she was experiencing previously vs a new pain starting after procedure. I have ordered a KUB (abdominal x-ray) for further eval-please she if she can have this done today and then follow up with me in office tomorrow morning. Stay on light, bland diet until symptoms improving. If any red flag signs/symptoms such as severe pain and associated nausea, vomiting, fever, chills, bloody or black stools go directly to ED for further eval Radha, Should I bring Sky back in for a follow up appointment with you? She was given the results of her procedure via mychart, but continues to have pain. Jacqui Soler RN documented in this encounter [facility] 12-20-2022 Miscellaneous Notes FOLLOW UP ENDOSCOPY - RESULTS AND RECOMMENDATIONS NAME: Sky Zamudio CLINIC NO.: [id number] : 1970 DATE: December 20, 2022 PRIMARY CARE PROVIDER: Elliott Mahajan MD Sky Zamudio is a patient referred for endoscopy for abdominal pain. The patient is a 52 year old female referred for abdominal pain. Sky notes that she has been having pain initially in her upper abdominal area above the umbilicus. This pain has been going on for least the past 5 days. She notes the pain is worse with eating. She felt that taking meloxicam and Flexeril improved her symptoms. She notes some nausea for which she has been taking Zofran. She has had some vomiting which has been bile and food without blood or coffee grounds. She has a longstanding history of constipation. She takes significant months of fiber. She notes that she has been moving her bowels more irregularly. She states she is lost 20 pounds. I performed colonoscopy in 2018 for abdominal pain and constipation which was unremarkable. I formed upper endoscopy in 2020 which demonstrated gastritis and distal esophagitis. The patient is having life stressors right now. She had quit smoking but restarted smoking through these life stressors. And she is taking meloxicam and other NSAIDs. She has a prescription for Prevacid which she has been taking once a day. She also had a prescription for Carafate but feels that gets her nauseated so she does not take the Carafate. She has had no imaging. She also noted dysuria she was given medication for that which has improved her symptoms. I obtained a KUB which demonstrated significant fecal loading. I performed upper and lower endoscopy on 2022. The patient was found to have: Upper Endoscopy: Impression: - Normal examined jejunum. - Normal examined duodenum. - Gastritis. Biopsied. - Normal gastroesophageal junction. - Non-severe reflux esophagitis with no bleeding. Biopsied. Lower Endoscopy: Impression: - Preparation of the colon was fair. - The entire examined colon is normal. - The distal rectum and anal verge are normal on retroflexion view. - No specimens collected. Pathology demonstrated: FINAL DIAGNOSIS A. Stomach, antrum, biopsy: - Gastric antral/oxyntic mucosa with no significant histopathologic findings. - No evidence of Helicobacter pylori organisms on H&E stain. B. Esophagus, distal, biopsy: - Gastric oxyntic mucosa with mild chronic inflammation. - Negative for intestinal metaplasia and dysplasia. - No squamous mucosa identified. While there was still some liquid stool and small solid pieces on the colonoscopy this was felt to give rather decent clearance compared to the degree of fecal loading on her KUB. IMPRESSION: Mild gastritis, mild distal esophagitis, suboptimal prep but no obvious abnormalities PLAN: INSTRUCTIONS FOR CONSTIPATION FOLLOWING NORMAL COLONOSCOPY I discussed with you the findings of your colonoscopy. Since there were no worrisome abnormalities, I recommend you undergo repeat endoscopic screening at 10 year intervals. If you have a family history of colon cancer, then follow up endoscopy should be every 5 years. This is the current recommendation for colon cancer screening. If you note bleeding, change in bowel habits, or other suspicious colon related symptoms before that time, those symptoms should be evaluated as necessary. Constipation in the setting of a normal endoscopy can almost always be managed with the following modifications. A high fiber diet including increasing whole grains, fruits and vegetables and increasing liquid intake will improve most issues with constipation. Please note that increasing liquid intake means clear liquids or juice. 6 - 8 8 ounce glasses of liquid per day should be the goal. Caffeine containing beverages do not count towards that goal. If these modifications do not improve the constipation symptoms sufficiently, surfactant stool softers (dulcolax, docusate or similar) or Miralax can be used as needed. Miralax is now over the counter. It is typically started at 1 capful in 8 ounces of liquid daily. It can be increased (twice a day) or decreased (1/2 capful or every other day) as needed. These agents will not cause damage to the colon even if used ocean transportation intermediary Plant based laxatives (Cascara, Senna, Aloin from Aloe Vera), are GI stimulants that can damage the colon if used mcc. Care should be taken to review the active ingredient list on all over the counter laxatives to be sure that these are not taken inadvertently. An example is that not all Sennokot formulations contain Senna as an active ingredient. If you have any difficulties or concerns, you should contact our office immediately. INSTRUCTIONS FOR PEPTIC ULCER DISEASE/GASTRITIS I discussed with you the findings of your upper endoscopy. Your upper endoscopy demonstrated signs of peptic ulcer disease or irritation. This can be seen as a range of issues from actual ulcers in the stomach or duodenum (first part of the small bowel) or irritation ranging from redness to more significant irritation with erosions of the stomach or duodenum. These conditions are usually caused from a combination of too much acid production or too little protective mucus production in the stomach. Factors that increase acid production include smoking and stress. If you smoke, stopping smoking will often cure these issues without needing other medications. Factors that decrease the stomach's production of protective mucus include alcohol consumption, smoking, aspirin and other anti-inflammatory use. Over the counter medications including antiacids and acid reducing medications including H2 blockers (Zantac and the like) and proton pump inhibitors (prilosec, prevacid and the like) neutralize or prevent acid production. Prescription strength proton pump inhibitors (PPIs) may be necessary if your symptoms persist. Carafate may be added to PPI treatment in refractory cases. Avoiding smoking, alcohol and antiinflammatory medications are important in the successful treatment of peptic diseases. New or worsening symptoms such are epigastric pain, burning, difficulty swallowing or food sticking should be relayed to your physician. Feeling full early after eating, or black, tarry, foul smelling stools are also worrisome. If you have any difficulties or concerns, you should contact our office immediately. The patient is instructed to follow-up with your primary care provider I have instructed my staff to forward the above information to the patient and to the appropriate providers documented in this encounter [facility] 12-19-2022 History of Present illness Narrative My chart message to pt. Dr. Valero said surgical shoe would be fine. Also may karthikeyan tape the 4th and 5th toes together. Can refer to him for evaluation and treatment if she wants referral. Would do follow up Xray in about 4 weeks. Order filed. documented in this encounter [facility] 12-18-2022 History and physical note UPDATED PROCEDURAL SEDATION HISTORY AND PHYSICAL EXAMINATION SERVICE DATE: 12/18/2022 SERVICE TIME: 12:32 PM PHYSICAL EXAM MUST BE COMPLETED ON ADMISSION PROCEDURE: Procedure Indications: The History and Physical (completed in the past 30 days) has been reviewed and the patient has been examined. The contents accurately reflect the patient's condition with the following additions or revisions since the H&P was completed. ASA Class: ASA Class:: Patient with severe systemic disease Examination indicates no changes. AIRWAY: Airway Visualization of Uvula: Yes Neck Full Range of Motion: Yes LUNGS: Wheezing CARDIAC: Regular rhythm,Regular rate Provisional Diagnosis/Treatment Plan: abdominal pain, constipation NSAID use - EGD and Colonsocopy SEDATION GOAL: Moderate This H&P can be found in the attached. SIGNATURE: Hilda Edwards MD PATIENT NAME: Sky Zamudio DATE: December 18, 2022 TIME: 12:32 PM Source Note - Hilda Edwards MD - 12/18/2022 2:00 PM EDT Images from the original note were not included. HISTORY AND PHYSICAL Sky Zamudio 1970 REFERRING PHYSICIAN: No ref. provider found CHIEF COMPLAINT: Abdominal Pain (New patient abdominal pain ) HPI: The patient is a 52 year old female referred for abdominal pain. Sky notes that she has been having pain initially in her upper abdominal area above the umbilicus. This pain has been going on for least the past 5 days. She notes the pain is worse with eating. She felt that taking meloxicam and Flexeril improved her symptoms. She notes some nausea for which she has been taking Zofran. She has had some vomiting which has been bile and food without blood or coffee grounds. She has a longstanding history of constipation. She takes significant months of fiber. She notes that she has been moving her bowels more irregularly. She states she is lost 20 pounds. I performed colonoscopy in 2018 for abdominal pain and constipation which was unremarkable. I formed upper endoscopy in 2019 which demonstrated gastritis and distal esophagitis. The patient is having life stressors right now. She had quit smoking but restarted smoking through these life stressors. And she is taking meloxicam and other NSAIDs. She has a prescription for Prevacid which she has been taking once a day. She also had a prescription for Carafate but feels that gets her nauseated so she does not take the Carafate. She has had no imaging. She also noted dysuria she was given medication for that which has improved her symptoms. The patient is being seen by me today at the request of Dr. Elliott Mahajan MD for my opinion and advice regarding abdominal pain. PAST MEDICAL HISTORY PAST MEDICAL HISTORY Diagnosis Date Abdominal pain, periumbilic Acute gastritis without mention of hemorrhage Bipolar disorder, unspecified (HCC) Chronic rhinitis Closed fracture of navicular (scaphoid) bone of foot 12/10/2011 Contact dermatitis and other eczema, due to unspecified cause Diaphragmatic hernia without mention of obstruction or gangrene Dysmenorrhea decreased Esophageal reflux Excessive or frequent menstruation Heavy periods resolved Irregular menstrual cycle Irregular periods Migraine headache Obesity, unspecified Other specified gastritis SLEEP APNEA NOS 12/12/2007 12-03-07: effic 87%, no stage III, AHI 5.5, REM 20.9, supine 3, snoring 98%-rec CPAP trial Stress incontinence Unspecified asthma(493.90) Unspecified symptom associated with female genital organs PAST SURGICAL HISTORY PAST SURGICAL HISTORY Procedure Laterality Date ADENOIDECTOMY PRIMARY <AGE 12 Adenoidectomy ANESTHESIA HERNIA REPAIR LOWER ABDOMEN NOS 01/31/2005 DELIVERY ONLY x 3 , low cervical CHOLECYSTECTOMY 03/05/2006 Cholecystectomy COLONOSCOPY FLX DX W/COLLJ SPEC WHEN PFRMD 03/13/2005 Colonoscopy COLONOSCOPY FLX DX W/COLLJ SPEC WHEN PFRMD 04/28/2018 Colonoscopy COLSC FLX W/RMVL OF TUMOR POLYP LESION SNARE TQ 04/02/16 ?mild colitis, tubular adenoma in rectal polyp - 5 year follow up EGD TRANSORAL BIOPSY SINGLE/MULTIPLE 04/04/10 mild gastritis ESOPHAGOGASTRODUODENOSCOPY TRANSORAL DIAGNOSTIC 03/13/2005 EGD ESOPHAGOGASTRODUODENOSCOPY TRANSORAL DIAGNOSTIC 09/14/2019 EGD HYSTERECTOMY HX 05/02/15 with repair of incidental cystotomy HYSTEROSCOPY, DIAGNOSTIC (SEPARATE 06/21/2010 hysteroscopy D&C, Novasure LIG/TRNSXJ FLP TUBE ABDL/VAG APPR UNI/BI Tubal ligation NEUROPLASTY &/TRANSPOS MEDIAN NRV CARPAL TUNNE 06/04/2007 Carpal tunnel decomp right PAST SURGICAL HISTORY OF Abd hernia and mesh placement REPAIR INCISIONAL HERNIA 04/02/2005 with mesh - 3cm infraumbilical - 5cm below umbilicus- medium ventralex mesh SLING 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 montelukast (SINGULAIR) 10 mg tablet Take 1 tablet by mouth daily at bedtime. diclofenac (VOLTAREN) 1 % topical gel apply topically as directed if needed nitrofurantoin monohydrate and macrocrystal (MACROBID) 100 mg capsule Take 1 capsule by mouth twice daily. nicotine polacrilex (NICORETTE) 2 mg gum Take 1 Each by mouth every 2 hours as needed. triamcinolone acetonide (NASACORT AQ) 55 mcg nasal inhaler Use 2 Sprays in the nose once daily as needed. ondansetron orally disintegrating (ZOFRAN ODT) 4 mg disintegrating tablet Take 1 tablet by mouth every 6 hours as needed for nausea/vomiting. cyclobenzaprine (FLEXERIL) 10 mg tablet Take 1 tablet by mouth three times daily as needed. fremanezumab-vfrm ([employer]OVY AUTOINJECTOR) 225 mg/1.5 mL auto-injector Inject 1.5 mL subcutaneously once every month. meloxicam (MOBIC) 15 mg tablet Take 1 tablet by mouth once daily. EPINEPHrine (EPIPEN) 0.3 mg/0.3 mL auto-injector Inject subcutaneously. use as directed if needed after insect bite carBAMazepine XR (TEGRETOL XR) 100 mg 12 hr tablet Take 1 tablet by mouth twice daily. Combine with 200 mg twice daily for 300 mg twice daily dose. carBAMazepine XR (TEGRETOL XR) 200 mg 12 hr tablet Take 1 tablet by mouth twice daily. Add to 100 mg twice daily for 300 mg twice daily total dose. acetaminophen 325 mg-caffeine 40 mg-butalbital 50 mg (FIORICET) per tablet Take 1 tablet by mouth every 6 hours if needed for headache. No more than 5 days per month. promethazine (PHENERGAN) 25 mg tablet Take 1 tablet by mouth every 8 hours as needed. lansoprazole (PREVACID) 30 mg capsule Take 1 capsule by mouth daily before breakfast. 1/2 hr before meal. ipratropium 20 mcg-albuterol 100 mcg (COMBIVENT RESPIMAT) 20-100 mcg/actuation inhaler Inhale 1 Puff as instructed four times daily as needed for wheezing/shortness of breath. albuterol HFA (VENTOLIN HFA) 90 mcg/actuation inhaler Inhale 2 Puffs as instructed every 4 hours as needed. loratadine-pseudoephedrine ER (LORATA-D) 10-240 mg Tb24 Take 1 tablet by mouth once daily. Lactobacillus acidophilus (FLORAJEN ACIDOPHILUS) 20 billion cell cap Take 1 capsule by mouth once daily. naratriptan (AMERGE) 2.5 mg tablet Take 1 tab at migraine onset. May repeat once in 2 hours if needed. cimetidine (TAGAMET) 400 mg tablet Take 1 tablet by mouth twice daily. (Patient taking differently: Take 400 mg by mouth once daily.) Cholecalciferol, Vitamin D3, 50 mcg (2,000 unit) cap Take 2 capsules by mouth once daily. estrogens conjugated (PREMARIN) 0.3 mg tablet Take 0.3 mg by mouth. Taking 3 times per week. Prescribed by outside OB. multivitamin (TAB-A-JESSICA) tablet Take 1 tablet by mouth once daily. gcjrlblb-hpnuxybbx-lvlgcajjbkwobl (CORTISPORIN) otic solution Use 3 Drops in the ears four times daily. (Patient taking differently: Use 3 Drops in the ears as needed.) meclizine (ANTIVERT) 25 mg tab take 1/2 to 1 tablet by mouth every 6 hours if needed for dizziness hydroCHLOROthiazide (HYDRODIURIL, ESIDRIX) 25 mg tablet Take 1 tablet by mouth once daily as needed (fluid retention). lansoprazole (PREVACID) 30 mg capsule Take 1 capsule by mouth twice daily. Benzonatate 200 mg capsule Take 1 capsule by mouth three times daily as needed. (Patient not taking: Reported on 11/18/2022) terconazole (TERAZOL 7) 0.4 % vaginal cream Use 1 Applicator vaginally daily at bedtime. (Patient not taking: No sig reported) sucralfate (CARAFATE) 1 gram tablet Take 1 tablet by mouth three times daily before meals. May dissolve 1 tab into ~ 2 tsp of water, drink as soon as dissolved. (Patient not taking: No sig reported) No current facility-administered medications for this visit. ALLERGIES: Bactrim [Sulfamethoxazole-Trimethoprim], Bees, Floxin [Ofloxacin], Ivp Dye [Iodine], Keflex [Cephalexin], Mangoes, Other, Smoke, Topamax [Topiramate], and Ultram [Tramadol Hcl] PERSONAL HISTORY: SOCIAL HISTORY Social History Tobacco Use Smoking status: Every Day Types: Cigars Smokeless tobacco: Never Tobacco comments: smokes 4 Clove cigars daily. Vaping Use Vaping Use: Never used Substance Use Topics Alcohol use: Yes Comment: once a month Drug use: Yes Types: Marijuana Comment: Lots of coffee per day/uses marijuana when pain gets severe FAMILY HISTORY: FAMILY HISTORY FAMILY HISTORY Problem Relation Age of Onset other (bipolar) Mother Arthritis Mother other (den disc disease) Father Dementia Father other (bipolar) Brother asthma other (crohns) Brother other (Migraine) Brother Diabetes Maternal Grandmother Heart Maternal Grandmother other (Agustín's disease) Daughter other (Agustín's Disease) Son other (Agustín's Disease) Son other (Bipolar) Son Breast Cancer Other Maternal Cousin REVIEW OF SYMPTOMS: negative except as noted above PHYSICAL EXAMINATION: General: The patient is 52 year old female, well nourished, well hydrated in no acute distress. The patient is oriented to time, place, and person. VITALS: Blood pressure 140/90, pulse 101, height 161 cm (5' 3.39 ), weight 121.3 kg (267 lb 6.4 oz), last menstrual period 05/14/2015, SpO2 97 %. Body mass index is 46.79 kg/m . HEENT: Normal cephalic, ataumatic, pupils are equally round, sclera are anicteric, mucous membranes are moist, oropharynx is clear. Neck has no masses, asymmetry or lymphadenopathy. Thyroid is unremarkable. Respiratory: Clear to auscultation and percussion. Normal respiratory excursion and pattern. Cardiac: Examination is regular rate and rhythm. Abdominal exam: Soft, mild diffusely tender with most tenderness in the epigastric region, with no palpable masses. No hepatosplenomegaly. No palpable hernias. Rectal exam: exam deferred Extremities: no clubbing, cyanosis or edema. No adenopathy. Other: LABORATORY VALUES: As Noted RADIOLOGIC STUDIES: As Noted Assessment IMPRESSION: Epigastric tenderness, abdominal pain, multiple reasons for peptic ulcer disease, constipation PLAN: I plan to perform upper and lower endoscopy. We discussed the risks and benefits of the planned endoscopy. I have informed the patient that complications can occur including failure to complete the endoscopy and perforation. The patient had the opportunity to ask questions concerning the planned endoscopy. My staff has also explained the procedure to the patient in understandable terms and has given the patient printed material concerning the procedure. The patient freely consents to surgery. I plan to use golytely bowel preparation for endoscopy The patient needed upper limits of dosing on her previous lower endoscopy. We will try to arrange upper and lower endoscopy in the near future at the most available site but would prefer [facility] given the dosing required in the past. We will order a KUB on Friday to see degree of fecal loading. Diagnoses: (R10.9) Abdominal pain, unspecified abdominal location (primary encounter diagnosis) My findings have been communicated to Molly Simpson via shared medical record. This note will be forwarded to Elliott Mahajan MD. Return to Clinic: The patient is instructed to follow-up with me after the testing has been completed. Hilda Edwards MD Images from the original note were not included. HISTORY AND PHYSICAL Sky Zamudio 1970 REFERRING PHYSICIAN: No ref. provider found CHIEF COMPLAINT: Abdominal Pain (New patient abdominal pain ) HPI: The patient is a 52 year old female referred for abdominal pain. Sky notes that she has been having pain initially in her upper abdominal area above the umbilicus. This pain has been going on for least the past 5 days. She notes the pain is worse with eating. She felt that taking meloxicam and Flexeril improved her symptoms. She notes some nausea for which she has been taking Zofran. She has had some vomiting which has been bile and food without blood or coffee grounds. She has a longstanding history of constipation. She takes significant months of fiber. She notes that she has been moving her bowels more irregularly. She states she is lost 20 pounds. I performed colonoscopy in 2018 for abdominal pain and constipation which was unremarkable. I formed upper endoscopy in 2019 which demonstrated gastritis and distal esophagitis. The patient is having life stressors right now. She had quit smoking but restarted smoking through these life stressors. And she is taking meloxicam and other NSAIDs. She has a prescription for Prevacid which she has been taking once a day. She also had a prescription for Carafate but feels that gets her nauseated so she does not take the Carafate. She has had no imaging. She also noted dysuria she was given medication for that which has improved her symptoms. The patient is being seen by me today at the request of Dr. Elliott Mahajan MD for my opinion and advice regarding abdominal pain. PAST MEDICAL HISTORY PAST MEDICAL HISTORY Diagnosis Date Abdominal pain, periumbilic Acute gastritis without mention of hemorrhage Bipolar disorder, unspecified (HCC) Chronic rhinitis Closed fracture of navicular (scaphoid) bone of foot 12/10/2011 Contact dermatitis and other eczema, due to unspecified cause Diaphragmatic hernia without mention of obstruction or gangrene Dysmenorrhea decreased Esophageal reflux Excessive or frequent menstruation Heavy periods resolved Irregular menstrual cycle Irregular periods Migraine headache Obesity, unspecified Other specified gastritis SLEEP APNEA NOS 12/12/2007 12-03-07: effic 87%, no stage III, AHI 5.5, REM 20.9, supine 3, snoring 98%-rec CPAP trial Stress incontinence Unspecified asthma(493.90) Unspecified symptom associated with female genital organs PAST SURGICAL HISTORY PAST SURGICAL HISTORY Procedure Laterality Date ADENOIDECTOMY PRIMARY <AGE 12 Adenoidectomy ANESTHESIA HERNIA REPAIR LOWER ABDOMEN NOS 01/31/2005 DELIVERY ONLY x 3 , low cervical CHOLECYSTECTOMY 03/05/2006 Cholecystectomy COLONOSCOPY FLX DX W/COLLJ SPEC WHEN PFRMD 03/13/2005 Colonoscopy COLONOSCOPY FLX DX W/COLLJ SPEC WHEN PFRMD 04/28/2018 Colonoscopy COLSC FLX W/RMVL OF TUMOR POLYP LESION SNARE TQ 04/02/16 ?mild colitis, tubular adenoma in rectal polyp - 5 year follow up EGD TRANSORAL BIOPSY SINGLE/MULTIPLE 04/04/10 mild gastritis ESOPHAGOGASTRODUODENOSCOPY TRANSORAL DIAGNOSTIC 03/13/2005 EGD ESOPHAGOGASTRODUODENOSCOPY TRANSORAL DIAGNOSTIC 09/14/2019 EGD HYSTERECTOMY HX 05/02/15 with repair of incidental cystotomy HYSTEROSCOPY, DIAGNOSTIC (SEPARATE 06/21/2010 hysteroscopy D&C, Novasure LIG/TRNSXJ FLP TUBE ABDL/VAG APPR UNI/BI Tubal ligation NEUROPLASTY &/TRANSPOS MEDIAN NRV CARPAL TUNNE 06/04/2007 Carpal tunnel decomp right PAST SURGICAL HISTORY OF Abd hernia and mesh placement REPAIR INCISIONAL HERNIA 04/02/2005 with mesh - 3cm infraumbilical - 5cm below umbilicus- medium ventralex mesh SLING 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 montelukast (SINGULAIR) 10 mg tablet Take 1 tablet by mouth daily at bedtime. diclofenac (VOLTAREN) 1 % topical gel apply topically as directed if needed nitrofurantoin monohydrate and macrocrystal (MACROBID) 100 mg capsule Take 1 capsule by mouth twice daily. nicotine polacrilex (NICORETTE) 2 mg gum Take 1 Each by mouth every 2 hours as needed. triamcinolone acetonide (NASACORT AQ) 55 mcg nasal inhaler Use 2 Sprays in the nose once daily as needed. ondansetron orally disintegrating (ZOFRAN ODT) 4 mg disintegrating tablet Take 1 tablet by mouth every 6 hours as needed for nausea/vomiting. cyclobenzaprine (FLEXERIL) 10 mg tablet Take 1 tablet by mouth three times daily as needed. fremanezumab-vfrm ([employer] AUTOINJECTOR) 225 mg/1.5 mL auto-injector Inject 1.5 mL subcutaneously once every month. meloxicam (MOBIC) 15 mg tablet Take 1 tablet by mouth once daily. EPINEPHrine (EPIPEN) 0.3 mg/0.3 mL auto-injector Inject subcutaneously. use as directed if needed after insect bite carBAMazepine XR (TEGRETOL XR) 100 mg 12 hr tablet Take 1 tablet by mouth twice daily. Combine with 200 mg twice daily for 300 mg twice daily dose. carBAMazepine XR (TEGRETOL XR) 200 mg 12 hr tablet Take 1 tablet by mouth twice daily. Add to 100 mg twice daily for 300 mg twice daily total dose. acetaminophen 325 mg-caffeine 40 mg-butalbital 50 mg (FIORICET) per tablet Take 1 tablet by mouth every 6 hours if needed for headache. No more than 5 days per month. promethazine (PHENERGAN) 25 mg tablet Take 1 tablet by mouth every 8 hours as needed. lansoprazole (PREVACID) 30 mg capsule Take 1 capsule by mouth daily before breakfast. 1/2 hr before meal. ipratropium 20 mcg-albuterol 100 mcg (COMBIVENT RESPIMAT) 20-100 mcg/actuation inhaler Inhale 1 Puff as instructed four times daily as needed for wheezing/shortness of breath. albuterol HFA (VENTOLIN HFA) 90 mcg/actuation inhaler Inhale 2 Puffs as instructed every 4 hours as needed. loratadine-pseudoephedrine ER (LORATA-D) 10-240 mg Tb24 Take 1 tablet by mouth once daily. Lactobacillus acidophilus (FLORAJEN ACIDOPHILUS) 20 billion cell cap Take 1 capsule by mouth once daily. naratriptan (AMERGE) 2.5 mg tablet Take 1 tab at migraine onset. May repeat once in 2 hours if needed. cimetidine (TAGAMET) 400 mg tablet Take 1 tablet by mouth twice daily. (Patient taking differently: Take 400 mg by mouth once daily.) Cholecalciferol, Vitamin D3, 50 mcg (2,000 unit) cap Take 2 capsules by mouth once daily. estrogens conjugated (PREMARIN) 0.3 mg tablet Take 0.3 mg by mouth. Taking 3 times per week. Prescribed by outside OB. multivitamin (TAB-A-JESSICA) tablet Take 1 tablet by mouth once daily. abhvartk-ksbyyxfzj-ifxfxycxcsoldp (CORTISPORIN) otic solution Use 3 Drops in the ears four times daily. (Patient taking differently: Use 3 Drops in the ears as needed.) meclizine (ANTIVERT) 25 mg tab take 1/2 to 1 tablet by mouth every 6 hours if needed for dizziness hydroCHLOROthiazide (HYDRODIURIL, ESIDRIX) 25 mg tablet Take 1 tablet by mouth once daily as needed (fluid retention). lansoprazole (PREVACID) 30 mg capsule Take 1 capsule by mouth twice daily. Benzonatate 200 mg capsule Take 1 capsule by mouth three times daily as needed. (Patient not taking: Reported on 11/18/2022) terconazole (TERAZOL 7) 0.4 % vaginal cream Use 1 Applicator vaginally daily at bedtime. (Patient not taking: No sig reported) sucralfate (CARAFATE) 1 gram tablet Take 1 tablet by mouth three times daily before meals. May dissolve 1 tab into ~ 2 tsp of water, drink as soon as dissolved. (Patient not taking: No sig reported) No current facility-administered medications for this visit. ALLERGIES: Bactrim [Sulfamethoxazole-Trimethoprim], Bees, Floxin [Ofloxacin], Ivp Dye [Iodine], Keflex [Cephalexin], Mangoes, Other, Smoke, Topamax [Topiramate], and Ultram [Tramadol Hcl] PERSONAL HISTORY: SOCIAL HISTORY Social History Tobacco Use Smoking status: Every Day Types: Cigars Smokeless tobacco: Never Tobacco comments: smokes 4 Clove cigars daily. Vaping Use Vaping Use: Never used Substance Use Topics Alcohol use: Yes Comment: once a month Drug use: Yes Types: Marijuana Comment: Lots of coffee per day/uses marijuana when pain gets severe FAMILY HISTORY: FAMILY HISTORY FAMILY HISTORY Problem Relation Age of Onset other (bipolar) Mother Arthritis Mother other (den disc disease) Father Dementia Father other (bipolar) Brother asthma other (crohns) Brother other (Migraine) Brother Diabetes Maternal Grandmother Heart Maternal Grandmother other (Agustín's disease) Daughter other (Agustín's Disease) Son other (Agustín's Disease) Son other (Bipolar) Son Breast Cancer Other Maternal Cousin REVIEW OF SYMPTOMS: negative except as noted above PHYSICAL EXAMINATION: General: The patient is 52 year old female, well nourished, well hydrated in no acute distress. The patient is oriented to time, place, and person. VITALS: Blood pressure 140/90, pulse 101, height 161 cm (5' 3.39 ), weight 121.3 kg (267 lb 6.4 oz), last menstrual period 05/14/2015, SpO2 97 %. Body mass index is 46.79 kg/m . HEENT: Normal cephalic, ataumatic, pupils are equally round, sclera are anicteric, mucous membranes are moist, oropharynx is clear. Neck has no masses, asymmetry or lymphadenopathy. Thyroid is unremarkable. Respiratory: Clear to auscultation and percussion. Normal respiratory excursion and pattern. Cardiac: Examination is regular rate and rhythm. Abdominal exam: Soft, mild diffusely tender with most tenderness in the epigastric region, with no palpable masses. No hepatosplenomegaly. No palpable hernias. Rectal exam: exam deferred Extremities: no clubbing, cyanosis or edema. No adenopathy. Other: LABORATORY VALUES: As Noted RADIOLOGIC STUDIES: As Noted Assessment IMPRESSION: Epigastric tenderness, abdominal pain, multiple reasons for peptic ulcer disease, constipation PLAN: I plan to perform upper and lower endoscopy. We discussed the risks and benefits of the planned endoscopy. I have informed the patient that complications can occur including failure to complete the endoscopy and perforation. The patient had the opportunity to ask questions concerning the planned endoscopy. My staff has also explained the procedure to the patient in understandable terms and has given the patient printed material concerning the procedure. The patient freely consents to surgery. I plan to use golytely bowel preparation for endoscopy The patient needed upper limits of dosing on her previous lower endoscopy. We will try to arrange upper and lower endoscopy in the near future at the most available site but would prefer [facility] given the dosing required in the past. We will order a KUB on Friday to see degree of fecal loading. Diagnoses: (R10.9) Abdominal pain, unspecified abdominal location (primary encounter diagnosis) My findings have been communicated to Molly Simpson via shared medical record. This note will be forwarded to Elliott Mahajan MD. Return to Clinic: The patient is instructed to follow-up with me after the testing has been completed. Hilda Edwards MD documented in this encounter [facility] 12-18-2022 Miscellaneous Notes Called patient back, regarding [employer] message. Patient states she is now going, bowels are clear. Patient stated she finished bowel prep, plus took 2 dulcolax. Patient stated she is nervous due to mother passing away shortly after colonoscopy. Reassured patient that she is in good hands, being nervous is ok. Theresa Houston LPN documented in this encounter [facility] 12-17-2022 History of Present illness Narrative VIRTUAL VISIT PROGRESS NOTE This is a virtual visit using [employer] video visit. It required patient-provider interaction for the medical decision making as documented below. I have communicated my name and active licensure. The patient's identity and physical location were verified at the time of this visit. Either the patient or their legal event representative has been informed of the risks and benefits of -- and alternatives to -- treatment through a remote evaluation and consents to proceed with the evaluation remotely. Sky Zamudio is a 52 year old female seen for follow up. Left pinky toe broken when kicked at a water bottle that dog pushed down the steps and hit concrete all instead. Toe is swollen and purple. Red line where the break is. Fractured it yesterday AM. Xray done yesterday. Wearing a flip flop with hard rubber bottom. Needs something for pain--tramadol effective in the past. Last RX 2014. Anxiety increased lately. Needs refill for Xanax. Last filled August 27 for 14 pills. Plans to see new provider at counseling center--on wait list. Increased anxiety since recent problems with bowels. Noted tiny BMs the past 5 days. Like rabbit poop. Doing clean out for EGD and colonoscopy tomorrow. The Dulcolax (4 pills) helped. Drank 108 ounces today--started at 1:30PM and done at 9PM. HISTORY REVIEWED (electronic chart updated): PAST MEDICAL HISTORY Diagnosis Date Abdominal pain, periumbilic Acute gastritis without mention of hemorrhage Bipolar disorder, unspecified (HCC) Chronic rhinitis Closed fracture of navicular (scaphoid) bone of foot 12/10/2011 Contact dermatitis and other eczema, due to unspecified cause Diaphragmatic hernia without mention of obstruction or gangrene Dysmenorrhea decreased Esophageal reflux Excessive or frequent menstruation Heavy periods resolved Irregular menstrual cycle Irregular periods Migraine headache Obesity, unspecified Other specified gastritis SLEEP APNEA NOS 12/12/2007 12-03-07: effic 87%, no stage III, AHI 5.5, REM 20.9, supine 3, snoring 98%-rec CPAP trial Stress incontinence Unspecified asthma(493.90) Unspecified symptom associated with female genital organs PAST SURGICAL HISTORY Procedure Laterality Date ADENOIDECTOMY PRIMARY <AGE 12 Adenoidectomy ANESTHESIA HERNIA REPAIR LOWER ABDOMEN NOS 01/31/2005 DELIVERY ONLY x 3 , low cervical CHOLECYSTECTOMY 03/05/2006 Cholecystectomy COLONOSCOPY FLX DX W/COLLJ SPEC WHEN PFRMD 03/13/2005 Colonoscopy COLONOSCOPY FLX DX W/COLLJ SPEC WHEN PFRMD 04/28/2018 Colonoscopy COLSC FLX W/RMVL OF TUMOR POLYP LESION SNARE TQ 04/02/16 ?mild colitis, tubular adenoma in rectal polyp - 5 year follow up EGD TRANSORAL BIOPSY SINGLE/MULTIPLE 04/04/10 mild gastritis ESOPHAGOGASTRODUODENOSCOPY TRANSORAL DIAGNOSTIC 03/13/2005 EGD ESOPHAGOGASTRODUODENOSCOPY TRANSORAL DIAGNOSTIC 09/14/2019 EGD HYSTERECTOMY HX 05/02/15 with repair of incidental cystotomy HYSTEROSCOPY, DIAGNOSTIC (SEPARATE 06/21/2010 hysteroscopy D&C, Novasure LIG/TRNSXJ FLP TUBE ABDL/VAG APPR UNI/BI Tubal ligation NEUROPLASTY &/TRANSPOS MEDIAN NRV CARPAL TUNNE 06/04/2007 Carpal tunnel decomp right PAST SURGICAL HISTORY OF Abd hernia and mesh placement REPAIR INCISIONAL HERNIA 04/02/2005 with mesh - 3cm infraumbilical - 5cm below umbilicus- medium ventralex mesh 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 STRES INCONTINENCE 05/02/15 TONSILLECTOMY PRIMARY/SECONDARY <AGE 12 Tonsillectomy FAMILY HISTORY Problem Relation Age of Onset other (bipolar) Mother Arthritis Mother other (den disc disease) Father Dementia Father other (bipolar) Brother asthma other (crohns) Brother other (Migraine) Brother Diabetes Maternal Grandmother Heart Maternal Grandmother other (Agustín's disease) Daughter other (Agustín's Disease) Son other (Agustín's Disease) Son other (Bipolar) Son Breast Cancer Other Maternal Cousin Social History Tobacco Use Smoking status: Every Day Types: Cigars Smokeless tobacco: Never Tobacco comments: smokes 4 Clove cigars daily. Vaping Use Vaping Use: Never used Substance Use Topics Alcohol use: Yes Comment: once a month Drug use: Yes Types: Marijuana Comment: Lots of coffee per day/uses marijuana when pain gets severe Current Outpatient Medications Medication Sig lansoprazole (PREVACID) 30 mg capsule Take 1 capsule by mouth twice daily. zolpidem (AMBIEN) 10 mg Take 1 tablet by mouth at bedtime as needed for up to 30 days. montelukast (SINGULAIR) 10 mg tablet Take 1 tablet by mouth daily at bedtime. diclofenac (VOLTAREN) 1 % topical gel apply topically as directed if needed nitrofurantoin monohydrate and macrocrystal (MACROBID) 100 mg capsule Take 1 capsule by mouth twice daily. nicotine polacrilex (NICORETTE) 2 mg gum Take 1 Each by mouth every 2 hours as needed. triamcinolone acetonide (NASACORT AQ) 55 mcg nasal inhaler Use 2 Sprays in the nose once daily as needed. ondansetron orally disintegrating (ZOFRAN ODT) 4 mg disintegrating tablet Take 1 tablet by mouth every 6 hours as needed for nausea/vomiting. cyclobenzaprine (FLEXERIL) 10 mg tablet Take 1 tablet by mouth three times daily as needed. fremanezumab-vfrm (AJOVY AUTOINJECTOR) 225 mg/1.5 mL auto-injector Inject 1.5 mL subcutaneously once every month. meloxicam (MOBIC) 15 mg tablet Take 1 tablet by mouth once daily. EPINEPHrine (EPIPEN) 0.3 mg/0.3 mL auto-injector Inject subcutaneously. use as directed if needed after insect bite carBAMazepine XR (TEGRETOL XR) 100 mg 12 hr tablet Take 1 tablet by mouth twice daily. Combine with 200 mg twice daily for 300 mg twice daily dose. carBAMazepine XR (TEGRETOL XR) 200 mg 12 hr tablet Take 1 tablet by mouth twice daily. Add to 100 mg twice daily for 300 mg twice daily total dose. acetaminophen 325 mg-caffeine 40 mg-butalbital 50 mg (FIORICET) per tablet Take 1 tablet by mouth every 6 hours if needed for headache. No more than 5 days per month. promethazine (PHENERGAN) 25 mg tablet Take 1 tablet by mouth every 8 hours as needed. lansoprazole (PREVACID) 30 mg capsule Take 1 capsule by mouth daily before breakfast. 1/2 hr before meal. ipratropium 20 mcg-albuterol 100 mcg (COMBIVENT RESPIMAT) 20-100 mcg/actuation inhaler Inhale 1 Puff as instructed four times daily as needed for wheezing/shortness of breath. albuterol HFA (VENTOLIN HFA) 90 mcg/actuation inhaler Inhale 2 Puffs as instructed every 4 hours as needed. loratadine-pseudoephedrine ER (LORATA-D) 10-240 mg Tb24 Take 1 tablet by mouth once daily. Lactobacillus acidophilus (FLORAJEN ACIDOPHILUS) 20 billion cell cap Take 1 capsule by mouth once daily. naratriptan (AMERGE) 2.5 mg tablet Take 1 tab at migraine onset. May repeat once in 2 hours if needed. cimetidine (TAGAMET) 400 mg tablet Take 1 tablet by mouth twice daily. (Patient taking differently: Take 400 mg by mouth once daily.) Cholecalciferol, Vitamin D3, 50 mcg (2,000 unit) cap Take 2 capsules by mouth once daily. Benzonatate 200 mg capsule Take 1 capsule by mouth three times daily as needed. (Patient not taking: Reported on 11/18/2022) terconazole (TERAZOL 7) 0.4 % vaginal cream Use 1 Applicator vaginally daily at bedtime. (Patient not taking: No sig reported) estrogens conjugated (PREMARIN) 0.3 mg tablet Take 0.3 mg by mouth. Taking 3 times per week. Prescribed by outside OB. sucralfate (CARAFATE) 1 gram tablet Take 1 tablet by mouth three times daily before meals. May dissolve 1 tab into ~ 2 tsp of water, drink as soon as dissolved. (Patient not taking: No sig reported) multivitamin (TAB-A-JESSICA) tablet Take 1 tablet by mouth once daily. lktrbqev-iefwzktwc-xetqspezebsphu (CORTISPORIN) otic solution Use 3 Drops in the ears four times daily. (Patient taking differently: Use 3 Drops in the ears as needed.) meclizine (ANTIVERT) 25 mg tab take 1/2 to 1 tablet by mouth every 6 hours if needed for dizziness hydroCHLOROthiazide (HYDRODIURIL, ESIDRIX) 25 mg tablet Take 1 tablet by mouth once daily as needed (fluid retention). No current facility-administered medications for this visit. ALLERGIES Allergen Reactions Bactrim [Sulfametho* GI Upset complained of stomach cramps though had tolerated in the past Bees Floxin [Ofloxacin] interaction with valproic acid; caused bipolar exacerbation with depression ( bipolar low ) Ivp Dye [Iodine] Anaphylaxis Keflex [Cephalexin] Mental Status Change, Itching bipolar low at same time; not sure if from med; no rash was associated Mangoes Other environmental Smoke Shortness of Breath Topamax [Topiramate] Dizziness Ultram [Tramadol Hc* Other: See Comments Migraine headaches REVIEW OF SYSTEMS: As noted in HPI PHYSICAL EXAMINATION: VIDEO EXAM: (if completed, performed via video enabled technology) GENERAL: alert and appropriate, in no distress, well-hydrated, well nourished, and happy, smiling, interactive HEAD: normocephalic, no abnormality or lesion noted EYES: no injection and visual acuity is grossly normal RESPIRATORY: breathing non-labored ASSESSMENT/PLAN: 1. Closed fracture of phalanx of left fifth toe, initial encounter - ICD9: 826.0, ICD10: S92.502A (primary diagnosis) Reviewed Xrays; no report yet. Fracture showed to patient via Share Screen. Will see if watch supervisor recommends consultation. - TRAMADOL 50 MG TABLET 2. Anxiety - ICD9: 300.00, ICD10: F41.9 Prescription from August. Noted anxiety about scope. Talked about family member who was diagnosed with cancer after a colonoscopy. Emotional support given. [facility]. Okay as needed use rather than routine use as discussed. Needs to follow with psychiatry specialist for anxiety meds if needs to take routinely given history. - ALPRAZOLAM 0.5 MG TABLET 3. Constipation, unspecified constipation type - ICD9: 564.00, ICD10: K59.00 Prep for colonoscopy effective once added Dulcolax pills. Discussed that normally has about 4 BMs per day--encouraged to avoid going more than 1 day with BM without doing something to get bowels going, including eating foods that help her get bowels going or even just a teaspoon of Miralax since a whole scoop causes diarrhea. Low residual foods till bowels start moving. Avoid bananas and cheese and other foods that slow her bowels. EGD and colonoscopy tomorrow. Noted history of polyps. Elliott Mahajan MD There are no Patient Instructions on file for this visit. documented in this encounter [facility] 12-16-2022 Miscellaneous Notes Filed order Further evaluation and treatment as indicated. Pt is in radiology now. Asking about the toe x ray. Patient calling and states she kicked a bottle of water yesterday and believes she may have broke her little toe on her left foot. She states there is some mild swelling, bruising to the little toe area only and rates pain 7/10. Pt states she has to get an abdominal xray today for Dr. Edwards and asks if PCP would add an order to include an xray of her toe as well, despite recommendation? Please advise patient. Thank you. documented in this encounter [facility] 12-14-2022 Instructions Hilda Edwards MD - 12/14/2022 10:08 AM EDT Images from the original note were not included. Bowel Preparation Instructions for: Golytely, Nulytely, Trilyte or Colyte (polyethylene glycol 3350 and electrolytes) IF YOU DO NOT FOLLOW THESE DIRECTIONS, YOUR COLONOSCOPY WILL BE CANCELLED. Felix Instructions: Your bowel must be empty so that your doctor can clearly view your colon. Follow all of the instructions in this handout EXACTLY as they are written. Do NOT eat any solid food the ENTIRE day before your colonoscopy. Drink only clear liquids. Buy your bowel preparation at least 5 days before your colonoscopy. TRANSPORTATION on the Day of Your Exam A responsible person MUST be present with you at Check In prior to your colonoscopy and REMAIN in the endoscopy area until you are discharged. You are NOT ALLOWED to drive, take a taxi or bus, or leave the Endoscopy Center ALONE. If you do not have a responsible dedicated truck driver (family member or friend) with you to take you home, your exam cannot be done with sedation and will be cancelled. Please bring a list of all of your current medications, including any Over-the Counter medications with you. Medications If you take insulin, diabetic medications or blood thinners such as Coumadin (warfarin), Plavix (clopidogrel), Ticlid (ticlopidine hydrochloride), Agrylin (anagrelide), Xarelto (Rivaroxaban), Pradaxa (Dabigatran), Eliquis (Apixaban), and Effient (Prasugrel). You MUST call the doctors who orders those medicines for instructions on altering the dosage before your colonoscopy. All other medications should be taken the day of the exam with a sip of water including ASPIRIN. Five (5) Days Before Your Colonoscopy Do NOT take medicines that stop diarrhea - such as Imodium, Kaopectate, or Pepto Bismol. Do NOT take fiber supplements - such as Metamucil, Citrucel, or Perdiem. Do NOT take products that contain iron - such as multi-vitamins (the label lists what is in the products). Do NOT take Vitamin E. Buy the prescription bowel preparation solution at your local pharmacy or drugstore pharmacy. 07/2019 Bowel Preparation Instructions for: Golytely, Nulytely, Trilyte or Colyte (polyethylene glycol 3350 and electrolytes) Three (3) Days Before Your Colonoscopy Do NOT eat high-fiber foods - such as popcorn, beans, seeds (flax, sunflower, quinoa), multigrain bread, nuts, salad/vegetables, or fresh and dried fruit. One (1) Day Before Your Colonoscopy Only drink clear liquids the ENTIRE DAY before your colonoscopy. Do NOT eat any solid foods. Drink at least 8 ounces of clear liquids every hour after waking up. The clear liquids you can drink include: Clear Liquid (NO RED LIQUIDS) DO NOT DRINK Gatorade, Pedialyte or Powerade Clear broth or bouillon Coffee or tea (no milk or non-dairy creamer) Carbonated and non-carbonated soft drinks Otny-Aid or other fruit flavored drinks Strained fruit juices (no pulp) Jell-O, popsicles, hard candy Water Alcohol Milk or non-dairy creamers Noodles or vegetables in soup Juice with pulp Liquid you cannot see through Do not use tobacco/vaping products The bowel preparation solution will be consumed in two parts. Mix the solution the evening before your colonoscopy and refrigerate before drinking. You may add the flavor pack that came with the bowel preparation. Do NOT add ice, sugar or any other flavorings to the solution. Part 1 At 6:00 PM - Evening before your colonoscopy Drink an 8-oz glass of bowel preparation every 10 minutes for a total of 8 glasses. You may continue to drink clear liquids until midnight. Part 2 On the day of your colonoscopy you may drink clear liquids up to (three) 3 hours before your procedure. 4 1/2 hours before your colonoscopy Drink an 8-oz glass of bowel preparation every 10 minutes for a total of 8 glasses. Fifteen (15) minutes later, drink an 8-oz glass of clear liquids every 15 minutes for a total of 2 glasses. You may continue to drink clear liquids up to (three) 3 hours before your exam. 2 07/2019 documented in this encounter [facility] 12-14-2022 History of Present illness Narrative HISTORY AND PHYSICAL Sky Keri Zamudio 1970 REFERRING PHYSICIAN: No ref. provider found CHIEF COMPLAINT: Abdominal Pain (New patient abdominal pain ) HPI: The patient is a 52 year old female referred for abdominal pain. Sky notes that she has been having pain initially in her upper abdominal area above the umbilicus. This pain has been going on for least the past 5 days. She notes the pain is worse with eating. She felt that taking meloxicam and Flexeril improved her symptoms. She notes some nausea for which she has been taking Zofran. She has had some vomiting which has been bile and food without blood or coffee grounds. She has a longstanding history of constipation. She takes significant months of fiber. She notes that she has been moving her bowels more irregularly. She states she is lost 20 pounds. I performed colonoscopy in 2018 for abdominal pain and constipation which was unremarkable. I formed upper endoscopy in 2019 which demonstrated gastritis and distal esophagitis. The patient is having life stressors right now. She had quit smoking but restarted smoking through these life stressors. And she is taking meloxicam and other NSAIDs. She has a prescription for Prevacid which she has been taking once a day. She also had a prescription for Carafate but feels that gets her nauseated so she does not take the Carafate. She has had no imaging. She also noted dysuria she was given medication for that which has improved her symptoms. The patient is being seen by me today at the request of Dr. Elliott Mahajan MD for my opinion and advice regarding abdominal pain. PAST MEDICAL HISTORY Diagnosis Date Abdominal pain, periumbilic Acute gastritis without mention of hemorrhage Bipolar disorder, unspecified (HCC) Chronic rhinitis Closed fracture of navicular (scaphoid) bone of foot 12/10/2011 Contact dermatitis and other eczema, due to unspecified cause Diaphragmatic hernia without mention of obstruction or gangrene Dysmenorrhea decreased Esophageal reflux Excessive or frequent menstruation Heavy periods resolved Irregular menstrual cycle Irregular periods Migraine headache Obesity, unspecified Other specified gastritis SLEEP APNEA NOS 12/12/2007 12-03-07: effic 87%, no stage III, AHI 5.5, REM 20.9, supine 3, snoring 98%-rec CPAP trial Stress incontinence Unspecified asthma(493.90) Unspecified symptom associated with female genital organs PAST SURGICAL HISTORY Procedure Laterality Date ADENOIDECTOMY PRIMARY <AGE 12 Adenoidectomy ANESTHESIA HERNIA REPAIR LOWER ABDOMEN NOS 01/31/2005 DELIVERY ONLY x 3 , low cervical CHOLECYSTECTOMY 03/05/2006 Cholecystectomy COLONOSCOPY FLX DX W/COLLJ SPEC WHEN PFRMD 03/13/2005 Colonoscopy COLONOSCOPY FLX DX W/COLLJ SPEC WHEN PFRMD 04/28/2018 Colonoscopy COLSC FLX W/RMVL OF TUMOR POLYP LESION SNARE TQ 04/02/16 ?mild colitis, tubular adenoma in rectal polyp - 5 year follow up EGD TRANSORAL BIOPSY SINGLE/MULTIPLE 04/04/10 mild gastritis ESOPHAGOGASTRODUODENOSCOPY TRANSORAL DIAGNOSTIC 03/13/2005 EGD ESOPHAGOGASTRODUODENOSCOPY TRANSORAL DIAGNOSTIC 09/14/2019 EGD HYSTERECTOMY HX 05/02/15 with repair of incidental cystotomy HYSTEROSCOPY, DIAGNOSTIC (SEPARATE 06/21/2010 hysteroscopy D&C, Novasure LIG/TRNSXJ FLP TUBE ABDL/VAG APPR UNI/BI Tubal ligation NEUROPLASTY &/TRANSPOS MEDIAN NRV CARPAL TUNNE 06/04/2007 Carpal tunnel decomp right PAST SURGICAL HISTORY OF Abd hernia and mesh placement REPAIR INCISIONAL HERNIA 04/02/2005 with mesh - 3cm infraumbilical - 5cm below umbilicus- medium ventralex mesh 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 montelukast (SINGULAIR) 10 mg tablet Take 1 tablet by mouth daily at bedtime. diclofenac (VOLTAREN) 1 % topical gel apply topically as directed if needed nitrofurantoin monohydrate and macrocrystal (MACROBID) 100 mg capsule Take 1 capsule by mouth twice daily. nicotine polacrilex (NICORETTE) 2 mg gum Take 1 Each by mouth every 2 hours as needed. triamcinolone acetonide (NASACORT AQ) 55 mcg nasal inhaler Use 2 Sprays in the nose once daily as needed. ondansetron orally disintegrating (ZOFRAN ODT) 4 mg disintegrating tablet Take 1 tablet by mouth every 6 hours as needed for nausea/vomiting. cyclobenzaprine (FLEXERIL) 10 mg tablet Take 1 tablet by mouth three times daily as needed. fremanezumab-vfrm (AJOVY AUTOINJECTOR) 225 mg/1.5 mL auto-injector Inject 1.5 mL subcutaneously once every month. meloxicam (MOBIC) 15 mg tablet Take 1 tablet by mouth once daily. EPINEPHrine (EPIPEN) 0.3 mg/0.3 mL auto-injector Inject subcutaneously. use as directed if needed after insect bite carBAMazepine XR (TEGRETOL XR) 100 mg 12 hr tablet Take 1 tablet by mouth twice daily. Combine with 200 mg twice daily for 300 mg twice daily dose. carBAMazepine XR (TEGRETOL XR) 200 mg 12 hr tablet Take 1 tablet by mouth twice daily. Add to 100 mg twice daily for 300 mg twice daily total dose. acetaminophen 325 mg-caffeine 40 mg-butalbital 50 mg (FIORICET) per tablet Take 1 tablet by mouth every 6 hours if needed for headache. No more than 5 days per month. promethazine (PHENERGAN) 25 mg tablet Take 1 tablet by mouth every 8 hours as needed. lansoprazole (PREVACID) 30 mg capsule Take 1 capsule by mouth daily before breakfast. 1/2 hr before meal. ipratropium 20 mcg-albuterol 100 mcg (COMBIVENT RESPIMAT) 20-100 mcg/actuation inhaler Inhale 1 Puff as instructed four times daily as needed for wheezing/shortness of breath. albuterol HFA (VENTOLIN HFA) 90 mcg/actuation inhaler Inhale 2 Puffs as instructed every 4 hours as needed. loratadine-pseudoephedrine ER (LORATA-D) 10-240 mg Tb24 Take 1 tablet by mouth once daily. Lactobacillus acidophilus (FLORAJEN ACIDOPHILUS) 20 billion cell cap Take 1 capsule by mouth once daily. naratriptan (AMERGE) 2.5 mg tablet Take 1 tab at migraine onset. May repeat once in 2 hours if needed. cimetidine (TAGAMET) 400 mg tablet Take 1 tablet by mouth twice daily. (Patient taking differently: Take 400 mg by mouth once daily.) Cholecalciferol, Vitamin D3, 50 mcg (2,000 unit) cap Take 2 capsules by mouth once daily. estrogens conjugated (PREMARIN) 0.3 mg tablet Take 0.3 mg by mouth. Taking 3 times per week. Prescribed by outside OB. multivitamin (TAB-A-JESSICA) tablet Take 1 tablet by mouth once daily. ujbqsybt-kneqkujqu-yuhkbhkpxlnclu (CORTISPORIN) otic solution Use 3 Drops in the ears four times daily. (Patient taking differently: Use 3 Drops in the ears as needed.) meclizine (ANTIVERT) 25 mg tab take 1/2 to 1 tablet by mouth every 6 hours if needed for dizziness hydroCHLOROthiazide (HYDRODIURIL, ESIDRIX) 25 mg tablet Take 1 tablet by mouth once daily as needed (fluid retention). lansoprazole (PREVACID) 30 mg capsule Take 1 capsule by mouth twice daily. Benzonatate 200 mg capsule Take 1 capsule by mouth three times daily as needed. (Patient not taking: Reported on 11/18/2022) terconazole (TERAZOL 7) 0.4 % vaginal cream Use 1 Applicator vaginally daily at bedtime. (Patient not taking: No sig reported) sucralfate (CARAFATE) 1 gram tablet Take 1 tablet by mouth three times daily before meals. May dissolve 1 tab into ~ 2 tsp of water, drink as soon as dissolved. (Patient not taking: No sig reported) No current facility-administered medications for this visit. ALLERGIES: Bactrim [Sulfamethoxazole-Trimethoprim], Bees, Floxin [Ofloxacin], Ivp Dye [Iodine], Keflex [Cephalexin], Mangoes, Other, Smoke, Topamax [Topiramate], and Ultram [Tramadol Hcl] PERSONAL HISTORY: Social History Tobacco Use Smoking status: Every Day Types: Cigars Smokeless tobacco: Never Tobacco comments: smokes 4 Clove cigars daily. Vaping Use Vaping Use: Never used Substance Use Topics Alcohol use: Yes Comment: once a month Drug use: Yes Types: Marijuana Comment: Lots of coffee per day/uses marijuana when pain gets severe FAMILY HISTORY: FAMILY HISTORY Problem Relation Age of Onset other (bipolar) Mother Arthritis Mother other (den disc disease) Father Dementia Father other (bipolar) Brother asthma other (crohns) Brother other (Migraine) Brother Diabetes Maternal Grandmother Heart Maternal Grandmother other (Agustín's disease) Daughter other (Agustín's Disease) Son other (Agustín's Disease) Son other (Bipolar) Son Breast Cancer Other Maternal Cousin REVIEW OF SYMPTOMS: negative except as noted above PHYSICAL EXAMINATION: General: The patient is 52 year old female, well nourished, well hydrated in no acute distress. The patient is oriented to time, place, and person. VITALS: Blood pressure 140/90, pulse 101, height 161 cm (5' 3.39 ), weight 121.3 kg (267 lb 6.4 oz), last menstrual period 05/14/2015, SpO2 97 %. Body mass index is 46.79 kg/m . HEENT: Normal cephalic, ataumatic, pupils are equally round, sclera are anicteric, mucous membranes are moist, oropharynx is clear. Neck has no masses, asymmetry or lymphadenopathy. Thyroid is unremarkable. Respiratory: Clear to auscultation and percussion. Normal respiratory excursion and pattern. Cardiac: Examination is regular rate and rhythm. Abdominal exam: Soft, mild diffusely tender with most tenderness in the epigastric region, with no palpable masses. No hepatosplenomegaly. No palpable hernias. Rectal exam: exam deferred Extremities: no clubbing, cyanosis or edema. No adenopathy. Other: LABORATORY VALUES: As Noted RADIOLOGIC STUDIES: As Noted Assessment IMPRESSION: Epigastric tenderness, abdominal pain, multiple reasons for peptic ulcer disease, constipation PLAN: I plan to perform upper and lower endoscopy. We discussed the risks and benefits of the planned endoscopy. I have informed the patient that complications can occur including failure to complete the endoscopy and perforation. The patient had the opportunity to ask questions concerning the planned endoscopy. My staff has also explained the procedure to the patient in understandable terms and has given the patient printed material concerning the procedure. The patient freely consents to surgery. I plan to use golytely bowel preparation for endoscopy The patient needed upper limits of dosing on her previous lower endoscopy. We will try to arrange upper and lower endoscopy in the near future at the most available site but would prefer [facility] given the dosing required in the past. We will order a KUB on Friday to see degree of fecal loading. Diagnoses: (R10.9) Abdominal pain, unspecified abdominal location (primary encounter diagnosis) My findings have been communicated to Molly Simpson via shared medical record. This note will be forwarded to Elliott Mahajan MD. Return to Clinic: The patient is instructed to follow-up with me after the testing has been completed. Hilda Edwards MD Is the patient having any pain? Yes PAIN SCALE: 7 on a scale of 0-10 documented in this encounter [facility] 12-13-2022 Miscellaneous Notes Spoke with Sky. Advised that she did not have to hold any medications. She asked about eating, since she thinks she has a bowel blockage, advised that she could stay on liquids, incase Dr. Edwards wanted to send her for a CT scan. She advised that she would not eat or drink after midnight incase she needed to have something done. Carmita Cabral RN Patient called. Verified name and date of . Patient would like to discuss medications she can and cannot take for pain prior to procedure. States she sees Dr. Brothers tomorrow. Ana Garcia LPN documented in this encounter [facility] 12-05-2022 Miscellaneous Notes Spoke to Patient, advised refills will be done at 12/17/2022 appt. Hailey Disla LPN Per Patient, she is not sleeping well, using Ambien more then prescribed, she is complete out of medication. Also, she is asking for refill of Xanax. Please send to [facility]. See Celeste reply Will see if okay till December appointment documented in this encounter [facility] 12-04-2022 Miscellaneous Notes Patient has been identified by name and date of : Yes Requested Prescriptions Pending Prescriptions Disp Refills montelukast (SINGULAIR) 10 mg tablet 30 tablet 11 Sig: Take 1 tablet by mouth daily at bedtime. RX INSTRUCTIONS: Patient aware RX will be sent to pharmacy. No need to notify patient. Patient last office visit: 11/18/22 Patient next office visit: 12/17/22 Ira Zambrano MA documented in this encounter [facility] 11-18-2022 History of Present illness Narrative SUBJECTIVE Sky Zamudio is a 52 year old female here today for acute concern. Chief Complaint Patient presents with: UTI: lower back and abdominal pain dysuria HPI Sky Zamudio is an 52 year old female presents today acutely for possible UTI. Denies new fever, or chills. The onset was about a week ago. The symptoms have been constant. Associated symptoms include burning. Denies frequency, odor to urine, back pain, nausea, vomiting. Urine is yellow in color, no blood is visible. Her medications were reviewed today and her list is now up to date. Medications Current Outpatient Medications Medication Sig nicotine polacrilex (NICORETTE) 2 mg gum Take 1 Each by mouth every 2 hours as needed. triamcinolone acetonide (NASACORT AQ) 55 mcg nasal inhaler Use 2 Sprays in the nose once daily as needed. ondansetron orally disintegrating (ZOFRAN ODT) 4 mg disintegrating tablet Take 1 tablet by mouth every 6 hours as needed for nausea/vomiting. cyclobenzaprine (FLEXERIL) 10 mg tablet Take 1 tablet by mouth three times daily as needed. fremanezumab-vfrm (AJOVY AUTOINJECTOR) 225 mg/1.5 mL auto-injector Inject 1.5 mL subcutaneously once every month. diclofenac (VOLTAREN) 1 % topical gel PRN meloxicam (MOBIC) 15 mg tablet Take 1 tablet by mouth once daily. EPINEPHrine (EPIPEN) 0.3 mg/0.3 mL auto-injector Inject subcutaneously. use as directed if needed after insect bite zolpidem (AMBIEN) 10 mg Take 1 tablet by mouth at bedtime as needed for up to 180 days. carBAMazepine XR (TEGRETOL XR) 100 mg 12 hr tablet Take 1 tablet by mouth twice daily. Combine with 200 mg twice daily for 300 mg twice daily dose. carBAMazepine XR (TEGRETOL XR) 200 mg 12 hr tablet Take 1 tablet by mouth twice daily. Add to 100 mg twice daily for 300 mg twice daily total dose. acetaminophen 325 mg-caffeine 40 mg-butalbital 50 mg (FIORICET) per tablet Take 1 tablet by mouth every 6 hours if needed for headache. No more than 5 days per month. promethazine (PHENERGAN) 25 mg tablet Take 1 tablet by mouth every 8 hours as needed. lansoprazole (PREVACID) 30 mg capsule Take 1 capsule by mouth daily before breakfast. 1/2 hr before meal. ipratropium 20 mcg-albuterol 100 mcg (COMBIVENT RESPIMAT) 20-100 mcg/actuation inhaler Inhale 1 Puff as instructed four times daily as needed for wheezing/shortness of breath. albuterol HFA (VENTOLIN HFA) 90 mcg/actuation inhaler Inhale 2 Puffs as instructed every 4 hours as needed. loratadine-pseudoephedrine ER (LORATA-D) 10-240 mg Tb24 Take 1 tablet by mouth once daily. Lactobacillus acidophilus (FLORAJEN ACIDOPHILUS) 20 billion cell cap Take 1 capsule by mouth once daily. naratriptan (AMERGE) 2.5 mg tablet Take 1 tab at migraine onset. May repeat once in 2 hours if needed. cimetidine (TAGAMET) 400 mg tablet Take 1 tablet by mouth twice daily. (Patient taking differently: Take 400 mg by mouth once daily.) Cholecalciferol, Vitamin D3, 50 mcg (2,000 unit) cap Take 2 capsules by mouth once daily. estrogens conjugated (PREMARIN) 0.3 mg tablet Take 0.3 mg by mouth. Taking 3 times per week. Prescribed by outside OB. montelukast (SINGULAIR) 10 mg tablet Take 1 tablet by mouth daily at bedtime. multivitamin (TAB-A-JESSICA) tablet Take 1 tablet by mouth once daily. swfvoyte-hoxmubthv-kqmkyywndcxvlm (CORTISPORIN) otic solution Use 3 Drops in the ears four times daily. (Patient taking differently: Use 3 Drops in the ears as needed.) meclizine (ANTIVERT) 25 mg tab take 1/2 to 1 tablet by mouth every 6 hours if needed for dizziness hydroCHLOROthiazide (HYDRODIURIL, ESIDRIX) 25 mg tablet Take 1 tablet by mouth once daily as needed (fluid retention). nitrofurantoin monohydrate and macrocrystal (MACROBID) 100 mg capsule Take 1 capsule by mouth twice daily. Benzonatate 200 mg capsule Take 1 capsule by mouth three times daily as needed. (Patient not taking: Reported on 11/18/2022) terconazole (TERAZOL 7) 0.4 % vaginal cream Use 1 Applicator vaginally daily at bedtime. (Patient not taking: No sig reported) sucralfate (CARAFATE) 1 gram tablet Take 1 tablet by mouth three times daily before meals. May dissolve 1 tab into ~ 2 tsp of water, drink as soon as dissolved. (Patient not taking: No sig reported) No current facility-administered medications for this visit. ALLERGIES Allergen Reactions Bactrim [Sulfametho* GI Upset complained of stomach cramps though had tolerated in the past Bees Floxin [Ofloxacin] interaction with valproic acid; caused bipolar exacerbation with depression ( bipolar low ) Ivp Dye [Iodine] Anaphylaxis Keflex [Cephalexin] Mental Status Change, Itching bipolar low at same time; not sure if from med; no rash was associated Mangoes Other environmental Smoke Shortness of Breath Topamax [Topiramate] Dizziness Ultram [Tramadol Hc* Other: See Comments Migraine headaches ACTIVE PROBLEM LIST Intractable Chronic Migraine Without Aura and With Status Migrainosus - 01/17/2022 Status Migrainosus - 12/31/2019 Migraine Without Aura and Without Status Migrainosus, Not Intractable - 12/31/2019 Anxiety - 12/31/2019 Insomnia - 12/31/2019 Chronic Daily Headache - 03/31/2019 Atrophic Vaginitis - 07/14/2018 Vitamin D Deficiency - 03/03/2018 Axillary Mass - 05/06/2016 Chronic Migraine Without Aura, With Intractable Migraine, So Stated, With Status Migrainosus - 04/18/2016 Intractable Chronic Migraine Without Aura and Without Status Migrainosus - 04/18/2016 Medication Overuse Headache - 04/18/2016 Rebound Headache - 04/18/2016 Mixed Incontinence - 04/19/2015 Body Mass Index 40.0-44.9, Adult (Hcc) - 10/30/2014 Nausea and Vomiting - 10/30/2014 Ventral Hernia - 06/10/2014 Strain of Rectus Abdominis Muscle - 06/10/2014 Abdominal Pain - 06/10/2014 Dysmenorrhea - 05/29/2010 Comment: Possible adenomyosis on us Irregular Menstrual Cycle - 05/29/2010 Female Stress Incontinence - 05/29/2010 Cystocele, Midline - 05/29/2010 Acute Gastritis Without Mention of Hemorrhage - 04/04/2010 Migraine Headache - 01/25/2010 Unspecified Sleep Apnea - 12/12/2007 Comment: 12-03-07: effic 87%, no stage III, AHI 5.5, REM 20.9, supine 3, snoring 98%-rec CPAP trial CPAP 12-24-07: effic 70%, AHI 4.5 on 10 with sat above 90% (79% low prior to treatment) Equinus Deformity of Foot, Acquired - 11/05/2007 Anxiety State, Unspecified - 07/01/2007 Calcaneal Spur - 06/25/2007 Allergic Rhinitis, Cause Unspecified - 06/11/2007 Carpal Tunnel Syndrome - 08/27/2006 Irritable Bowel Syndrome - 05/23/2006 Obesity, Unspecified Mild Persistent Asthma Without Complication - 03/25/2006 Other Specified Disorder of Gallbladder - 11/13/2005 Esophageal Reflux Chronic Rhinitis Bipolar Disorder, Unspecified ([facility]) Social History Tobacco Use Smoking status: Every Day Types: Cigars Smokeless tobacco: Never Tobacco comments: smokes 4 Clove cigars daily. Vaping Use Vaping Use: Never used Substance Use Topics Alcohol use: Yes Comment: once a month Drug use: Yes Types: Marijuana Comment: Lots of coffee per day/uses marijuana when pain gets severe Review of Systems Genitourinary: Positive for dysuria. OBJECTIVE BP 116/84 Pulse 97 Wt 272 lb (123.4kg) SpO2 97% LMP 05/14/2015 Physical Exam Vitals and nursing note reviewed. Constitutional: General: She is awake. She is not in acute distress. Appearance: Normal appearance. She is well-developed and well-groomed. She is not ill-appearing, toxic-appearing or diaphoretic. HENT: Head: Normocephalic. Right Ear: External ear normal. Left Ear: External ear normal. Nose: Nose normal. Eyes: General: Vision grossly intact. Conjunctiva/sclera: Conjunctivae normal. Pupils: Pupils are equal, round, and reactive to light. Neck: Vascular: No JVD. Trachea: Trachea normal. Pulmonary: Effort: Pulmonary effort is normal. No accessory muscle usage, prolonged expiration or respiratory distress. Musculoskeletal: Cervical back: Neck supple. Skin: General: Skin is warm and dry. Capillary Refill: Capillary refill takes less than 2 seconds. Neurological: General: No focal deficit present. Mental Status: She is alert and oriented to person, place, and time. Mental status is at baseline. Psychiatric: Attention and Perception: Attention and perception normal. Mood and Affect: Mood and affect normal. Speech: Speech normal. Behavior: Behavior normal. Behavior is cooperative. Thought Content: Thought content normal. Cognition and Memory: Cognition and memory normal. Judgment: Judgment normal. ASSESSMENT/PLAN: 1. Acute cystitis without hematuria - ICD9: 595.0, ICD10: N30.00 Urine dip positive for leukocytes, start Macrobid. - UA DIP B/O - URINE CULTURE - NITROFURANTOIN MONOHYDRATE & MACROCRYSTAL 100 MG ORAL CAP Portions of this note have been entered by ancillary staff. I have reviewed and when necessary edited, so that they are an adequate record of my encounter with this patient Please note that parts of this document were created using voice recognition software and therefore may contain grammatical errors. Patient verbalizes understanding of instructions from today's visit and in agreement with treatment plan. Questions answered. Agrees to call the office if questions, concerns of issues with acute symptoms not improving or if they worsen. Medical Decision Making: Problems: Low: Acute, uncomplicated illness or injury Risk: Moderate: Drug management Medical Decision Making Level: 3 - Low Return if symptoms worsen or fail to improve, for Keep next scheduled appointment.. Molly Simpson APRN-MIGUE documented in this encounter [facility] 11-18-2022 Instructions Gely Miramontes LPN - 11/18/2022 3:06 PM EDT Images from the original note were not included. Urinary Problem-When to Seek Help? Symptoms of a urinary problem may lead to a bladder infection. Women are at greater risk of a urinary tract infection than are men. Most urinary tract infections in women are caused by bacteria and involve the lower urinary tract including the bladder and urethra. Symptoms: Pain or burning when passing urine, urgency, frequency, blood in the urine, difficult emptying your bladder, and lower abdominal fullness or pressure. Common Causes: Sexual intercourse, menopause, constipation, uncontrolled diabetes, dehydration and feminine products such as tampons, and kidney stones. When to Get Help: Seek medical attention if you get frequent bladder infections, urinary concerns such as leakage, blood in the urine or frequent need to urinate. You may be recommended to get help from a specialist, such as a urologist. Diagnosis & Treatment: Lab testing may include: urinalysis, and urine culture that can be collected in the lab or walk-in clinic. Most bladder infections can easily be treated. A physician, nurse practitioner or physician state tested nursing assistant may treat with a short course of an antibiotic. Delaying treatment can lead to worsening symptoms, like a kidney infection. Self-Care: Avoid a full bladder, bubble baths, bath oils, food and beverages that may irritate the bladder such as caffeine. Avoid spermicide foam and diaphragms Void before and after sexual intercourse Wipe front to back after using the bathroom. Stay hydrated Stop Smoking Follow-up Care: Follow up testing is not needed in healthy young women if symptoms resolve. documented in this encounter [facility] 11-12-2022 Miscellaneous Notes Patient notified of providers message and verbalized understanding. Please let her know I sent a letter via my chart, can try silver sneakers and if still having issues try the formal PT again. Thanks! Patient has discussed this with her PT. They told her to continue with PT but in order to due so she needs another order. Or they told her she could just live with it. Patient would like to continue some sort of therapy. Is interested in silver sneakers. [facility] is asking her PCP office to write a letter for silver sneakers that patient needs therapy for pain management and that way she will be able to continue that way. Or is willing to do another 12 sessions of physical therapy if recommended. Please advise. Juanis Ruiz LPN Has she reviewed the persistent pain with her PT? Would recommend discussing with them to see if they recommend any modifications and if still having issues then let us know. PATIENT NOTIFIED OF SAME. Patient states she was given home exercises/stretches from PT that she has been doing. She states she is applying heat about twice daily and ices it about 1 daily. Is using a numbing gel. Take mobic daily and tylenol arthritis as needed. Nicotine gum Rx sent, please see if she has been doing things for pain after PT like heat/ice, stretches, massage, ect. Would recommend that first and then if not helpful has she already been trying voltaren gel, muscle rubs like icy hot, tylenol or NSAIDs (looks like has RX for meloxicam but maybe not using it). Pt is asking for an Rx for Nicotine gum. States she used it in the past & it helped her to quit smoking. Pt states she started smoking again & would like the gum. Pt uses [facility] in [place]. VALENTE: 08/27/22 NOV: 12/17/22 Pt reports she is going to PT for shoulder & ankle pain. Pt states she is working on machines now in PT & she has more pain in her shoulder & back for about 2 days after PT Pt looking for advice on what to do about pain? Please advise. Lien Eduardo LPN documented in this encounter [facility] 11-04-2022 Miscellaneous Notes [employer] message sent to Patient: Sky, a new prescription for Lactobacillus acidophilus (Florajen) was sent to [facility] 05/17/2022, x30 capsules, 11 refills, ending 05/17/2023. Please check with your pharmacy. Patient has been identified by name and date of : Yes Patient phones for refill(s): Requested Prescriptions Pending Prescriptions Disp Refills ondansetron orally disintegrating (ZOFRAN ODT) 4 mg disintegrating tablet 30 tablet 0 Sig: Take 1 tablet by mouth every 6 hours as needed for nausea/vomiting. Date of last office visit in primary care: 08/27/2022 Follow-up: 12/17/2022 Last 2 Encounter Wt Readings: Date: Wt: 08/27/2022 123.4 kg (272 lb) 08/17/2022 123.7 kg (272 lb 12.8 oz) Previous labs/tests for medication: Not applicable Please advise. Thank you. Hailey Disla LPN documented in this encounter [facility] 11-04-2022 Miscellaneous Notes Patient has been identified by name and date of : Yes Patient phones for refill(s): Requested Prescriptions Pending Prescriptions Disp Refills triamcinolone acetonide (NASACORT AQ) 55 mcg nasal inhaler 16.9 mL 11 Sig: Use 2 Sprays in the nose once daily as needed. Date of last office visit in primary care: 08/27/2022 Follow-up: 12/17/2022 Last 2 Encounter Wt Readings: Date: Wt: 08/27/2022 123.4 kg (272 lb) 08/17/2022 123.7 kg (272 lb 12.8 oz) Previous labs/tests for medication: Not applicable Please advise. Thank you. Hailey Disla LPN documented in this encounter [facility] 10-04-2022 History of Present illness Narrative [facility] - Follow up Virtual Visit During this COVID-19 pandemic, patient's headache clinic evaluation was scheduled as a virtual visit using the following platform Laishaivon Zamudio was identified by name and and consented to the video evaluation and its limitations. Based on this evaluation it may be necessary for them to schedule a follow up evaluation with me or other neurologists for formal physical examination and if necessary,other studies. Accompanied by: Self Primary Problem List: ACTIVE PROBLEM LIST Esophageal Reflux Chronic Rhinitis Bipolar Disorder, Unspecified (Hcc) Other Specified Disorder of Gallbladder Mild Persistent Asthma Without Complication Obesity, Unspecified Irritable Bowel Syndrome Carpal Tunnel Syndrome Allergic Rhinitis, Cause Unspecified Calcaneal Spur Anxiety State, Unspecified Equinus Deformity of Foot, Acquired Unspecified Sleep Apnea Migraine Headache Acute Gastritis Without Mention of Hemorrhage Dysmenorrhea Irregular Menstrual Cycle Female Stress Incontinence Cystocele, Midline Ventral Hernia Strain of Rectus Abdominis Muscle Abdominal Pain Body Mass Index 40.0-44.9, Adult (Hcc) Nausea and Vomiting Mixed Incontinence Chronic Migraine Without Aura, With Intractable Migraine, So Stated, With Status Migrainosus Intractable Chronic Migraine Without Aura and Without Status Migrainosus Medication Overuse Headache Rebound Headache Axillary Mass Vitamin D Deficiency Atrophic Vaginitis Chronic Daily Headache Status Migrainosus Migraine Without Aura and Without Status Migrainosus, Not Intractable Anxiety Insomnia Intractable Chronic Migraine Without Aura and With Status Migrainosus Chief Complaint: headaches, med renewal Impression and Plan from last visit 01/17/2022, [place]: ASSESSMENT: 51 year old female with history significant for bipolar, migraine without aura, obesity s/p gastric bypass, GABY, with chronic daily headaches consistent with chronic migraine. Did well with Botox, going from 25 days of bad migraine days down to 1 day at best per month a couple times, but then subsequent rounds were not effective, so we changed to Aimovig. Aimovig worked well for only 2 weeks and then wears off. Ajovy is lasting longer and wears off 3rd/4th week. PLAN: (Please see typed patient instructions for detailed instructions) ---> Acute Treatment: -Fioricet < 5 days per month and reserve for rescue. -Naratriptan < 10 days per month. ---> Preventive Treatment: -Tegretol XR 300 mg bid. This was initially prescribed by her psychiatrist for bipolar disorder, but she started to ask me to refill it since she no longer follows with the psychiatrist. -Ajovy monthly. Also discussed Vyepti as a future consideration. -If migraines start worsening, we may need to restart Topamax. ---> Follow-up: 6 months. Interval Headache History: Sky Zamudio is a 52 year old year old female, with a history of bipolar, migraine without aura, obesity s/p gastric bypass, GABY, with chronic daily headaches consistent with chronic migraine following up today virtually for headaches. Since the last visit, the patient states that her headaches have improved with Ajovy. It doesn't work as well for the last week of the month when it wears off, but overall much less frequent and less severe than before. Don't last as long either because she can get them control with naratriptan and it works now, so she rarely needs to use Fioricet. No side effects from any of her meds. Went from 25 migraine days a month to 5 with Ajovy. Used to be 11 or 12 out of 10 in severity, now 5 or 6. Headache 1 Number of migraine headache days/month: 4 Number of headache free days/month: 17 Days missed from work or school in the last month: 0 days Preventative: Ajovy Abortive: naratriptan, if that doesn't work she takes Fioricet Medications effective? yes # of doses of abortive medications per month: 5-7 for naratriptan, Fioricet 2-3x Analgesic Acetaminophen with codeine (Tylenol #3) Butalbital/acetaminophen/caffeine (Fioricet) Hydrocodone/Acetaminophen (Vicodin, [place]) Ketorolac (Toradol) Meloxicam (Mobic) Oxycodone/Acetaminophen (Percocet) Anti-Anxiety Diazepam (Valium) Anti-Convulsant Carbamazepine (Tegretol) Divalproex sodium (Depakote) Gabapentin (Neurontin) Lamotrigine (Lamictal) Topiramate (Topamax, Trokendi XL, Qudexy) Zonisamide (Zonegram) Anti-Depressant and Antipsychotic Amitriptyline (Elavil) Nortriptyline (Pamelor, Aventyl) Buspirone Antiemetics Ondansetron Prochlorperazine Promethazine Anti-Migraine Isometheptene/Acetaminophen/Dichloralp henazone (Midrin) Naratriptan (Amerge) Rizatriptan (Maxalt) Sumatriptan (Imitrex, Sumavel) Blood Pressure Verapamil (Verelan, Calan, Isoptin) Hydrochlorothiazide MABs Erenumab (Aimovig) Works for only 2 weeks and then wears off. Fremanezumab (Ajovy) Worked good but insurance stopped covering. GEPANTS Rimegepant (Nurtec) Muscle Relaxer Cyclobenzaprine (Flexeril) Tizanidine (Zanaflex) Sleep Aids Trazodone (Desyrel) Supplements Magnesium Other Medications Dexamethasone (Decadron) Methylprednisolone (Medrol) Prednisone Over the Counter Medications Acetaminophen/Aspirin/Caffeine (Excedrin, Goody s) Ibuprofen (Advil, Motrin) Naproxen sodium (Aleve) PAST MEDICAL HISTORY Diagnosis Date Abdominal pain, periumbilic Acute gastritis without mention of hemorrhage Bipolar disorder, unspecified (HCC) Chronic rhinitis Closed fracture of navicular (scaphoid) bone of foot 12/10/2011 Contact dermatitis and other eczema, due to unspecified cause Diaphragmatic hernia without mention of obstruction or gangrene Dysmenorrhea decreased Esophageal reflux Excessive or frequent menstruation Heavy periods resolved Irregular menstrual cycle Irregular periods Migraine headache Obesity, unspecified Other specified gastritis SLEEP APNEA NOS 12/12/2007 12-03-07: effic 87%, no stage III, AHI 5.5, REM 20.9, supine 3, snoring 98%-rec CPAP trial Stress incontinence Unspecified asthma(493.90) Unspecified symptom associated with female genital organs PAST SURGICAL HISTORY Procedure Laterality Date ADENOIDECTOMY PRIMARY <AGE 12 Adenoidectomy ANESTHESIA HERNIA REPAIR LOWER ABDOMEN NOS 01/31/2005 DELIVERY ONLY x 3 , low cervical CHOLECYSTECTOMY 03/05/2006 Cholecystectomy COLONOSCOPY FLX DX W/COLLJ SPEC WHEN PFRMD 03/13/2005 Colonoscopy COLONOSCOPY FLX DX W/COLLJ SPEC WHEN PFRMD 04/28/2018 Colonoscopy COLSC FLX W/RMVL OF TUMOR POLYP LESION SNARE TQ 04/02/16 ?mild colitis, tubular adenoma in rectal polyp - 5 year follow up EGD TRANSORAL BIOPSY SINGLE/MULTIPLE 04/04/10 mild gastritis ESOPHAGOGASTRODUODENOSCOPY TRANSORAL DIAGNOSTIC 03/13/2005 EGD ESOPHAGOGASTRODUODENOSCOPY TRANSORAL DIAGNOSTIC 09/14/2019 EGD HYSTERECTOMY HX 05/02/15 with repair of incidental cystotomy HYSTEROSCOPY, DIAGNOSTIC (SEPARATE 06/21/2010 hysteroscopy D&C, Novasure LIG/TRNSXJ FLP TUBE ABDL/VAG APPR UNI/BI Tubal ligation NEUROPLASTY &/TRANSPOS MEDIAN NRV CARPAL TUNNE 06/04/2007 Carpal tunnel decomp right PAST SURGICAL HISTORY OF Abd hernia and mesh placement REPAIR INCISIONAL HERNIA 04/02/2005 with mesh - 3cm infraumbilical - 5cm below umbilicus- medium ventralex mesh SLING OPER STRES INCONTINENCE 05/02/15 TONSILLECTOMY PRIMARY/SECONDARY <AGE 12 Tonsillectomy ALLERGIES Allergen Reactions Bactrim [Sulfametho* GI Upset complained of stomach cramps though had tolerated in the past Bees Floxin [Ofloxacin] interaction with valproic acid; caused bipolar exacerbation with depression ( bipolar low ) Ivp Dye [Iodine] Anaphylaxis Keflex [Cephalexin] Mental Status Change, Itching bipolar low at same time; not sure if from med; no rash was associated Mangoes Other environmental Smoke Shortness of Breath Topamax [Topiramate] Dizziness Ultram [Tramadol Hc* Other: See Comments Migraine headaches Current Medications: fremanezumab-vfrm (AJOVY AUTOINJECTOR) 225 mg/1.5 mL auto-injector Inject 1.5 mL subcutaneously once every month. diclofenac (VOLTAREN) 1 % topical gel PRN meloxicam (MOBIC) 15 mg tablet Take 1 tablet by mouth once daily. EPINEPHrine (EPIPEN) 0.3 mg/0.3 mL auto-injector Inject subcutaneously. use as directed if needed after insect bite zolpidem (AMBIEN) 10 mg Take 1 tablet by mouth at bedtime as needed for up to 180 days. cyclobenzaprine (FLEXERIL) 10 mg tablet Take 1 tablet by mouth three times daily as needed. carBAMazepine XR (TEGRETOL XR) 100 mg 12 hr tablet Take 1 tablet by mouth twice daily. Combine with 200 mg twice daily for 300 mg twice daily dose. carBAMazepine XR (TEGRETOL XR) 200 mg 12 hr tablet Take 1 tablet by mouth twice daily. Add to 100 mg twice daily for 300 mg twice daily total dose. acetaminophen 325 mg-caffeine 40 mg-butalbital 50 mg (FIORICET) per tablet Take 1 tablet by mouth every 6 hours if needed for headache. No more than 5 days per month. ondansetron orally disintegrating (ZOFRAN ODT) 4 mg disintegrating tablet Take 1 tablet by mouth every 6 hours as needed for nausea/vomiting. promethazine (PHENERGAN) 25 mg tablet Take 1 tablet by mouth every 8 hours as needed. lansoprazole (PREVACID) 30 mg capsule Take 1 capsule by mouth daily before breakfast. 1/2 hr before meal. ipratropium 20 mcg-albuterol 100 mcg (COMBIVENT RESPIMAT) 20-100 mcg/actuation inhaler Inhale 1 Puff as instructed four times daily as needed for wheezing/shortness of breath. albuterol HFA (VENTOLIN HFA) 90 mcg/actuation inhaler Inhale 2 Puffs as instructed every 4 hours as needed. loratadine-pseudoephedrine ER (LORATA-D) 10-240 mg Tb24 Take 1 tablet by mouth once daily. Lactobacillus acidophilus (FLORAJEN ACIDOPHILUS) 20 billion cell cap Take 1 capsule by mouth once daily. ondansetron orally disintegrating (ZOFRAN ODT) 4 mg disintegrating tablet Take 1 tablet by mouth every 6 hours as needed for nausea/vomiting. naratriptan (AMERGE) 2.5 mg tablet Take 1 tab at migraine onset. May repeat once in 2 hours if needed. (Patient not taking: Reported on 09/02/2022) cimetidine (TAGAMET) 400 mg tablet Take 1 tablet by mouth twice daily. (Patient taking differently: Take 400 mg by mouth once daily.) Cholecalciferol, Vitamin D3, 50 mcg (2,000 unit) cap Take 2 capsules by mouth once daily. triamcinolone acetonide (NASACORT AQ) 55 mcg nasal inhaler Use 2 Sprays in the nose once daily as needed. Benzonatate 200 mg capsule Take 1 capsule by mouth three times daily as needed. nicotine (NICODERM) 14 mg/24 hr Apply 1 Patch as directed every 24 hours. Use for 6 weeks, then decrease to 7mg daily. (Patient not taking: No sig reported) terconazole (TERAZOL 7) 0.4 % vaginal cream Use 1 Applicator vaginally daily at bedtime. (Patient not taking: No sig reported) estrogens conjugated (PREMARIN) 0.3 mg tablet Take 0.3 mg by mouth. Taking 3 times per week. Prescribed by outside OB. sucralfate (CARAFATE) 1 gram tablet Take 1 tablet by mouth three times daily before meals. May dissolve 1 tab into ~ 2 tsp of water, drink as soon as dissolved. (Patient not taking: No sig reported) montelukast (SINGULAIR) 10 mg tablet Take 1 tablet by mouth daily at bedtime. multivitamin (TAB-A-JESSICA) tablet Take 1 tablet by mouth once daily. budesonide-formoterol (SYMBICORT) 80-4.5 mcg/actuation inhaler Inhale 2 Puffs as instructed twice daily. (Patient not taking: Reported on 08/27/2022) gjvbsuoj-jdexcbmtu-vumzemuokugfxn (CORTISPORIN) otic solution Use 3 Drops in the ears four times daily. (Patient taking differently: Use 3 Drops in the ears as needed.) meclizine (ANTIVERT) 25 mg tab take 1/2 to 1 tablet by mouth every 6 hours if needed for dizziness hydroCHLOROthiazide (HYDRODIURIL, ESIDRIX) 25 mg tablet Take 1 tablet by mouth once daily as needed (fluid retention). I have reviewed the Health Status Assessment responses and discussed these with the patient: no, patient did not complete Jona Boyer APRN.TIMBER HAND HEADACHE SCORES: Headache Questions 07/21/2021 01/17/2022 07/18/2022 ER visits since last office visit: 2 0 0 Hospital stays since last office visit - 0 0 Limited ADLs in the last month: - 7 5 Days missed from work or school in the last month: - 0 - Days headache pain free in the last month: - 25 - Days per month with ALL of the following symptoms - decreased productivity, light sensitivity and nausea: - 5 - Initial improvement of headache after botox injection at last visit: Not applicable, I did not have a botox injection at my last visit - - PRN medication usage in the last month: - 7 - Patient impression of improvement since last visit: Minimally improved Much improved Much improved HIT-6 07/21/2021 01/17/2022 07/18/2022 HIT-6 Incomplete 62 (Severe impact) 61 (Severe impact) RAMONA - 2/7 SCORES 07/21/2021 01/17/2022 07/18/2022 RAMONA-2 Score 2 2 2 Migraine Specific QOL - Higher scores indicate better HRQL 01/17/2022 07/18/2022 Role Function-Restrictive Transformed Score (range: 0-100) 60 80 Role Function-Preventive Transformed Score (range: 0-100) 80 90 Emotional Function Transformed Score (range: 0-100) 80 80 PHQ-9 07/21/2021 01/17/2022 07/18/2022 Score 5 4 2 New Health Issues: No New Family History: No Review of Systems: Review of system: unchanged from the previous visit (sleep patterns, mood, energy, appetite, stress, exercising). Physical Examination: Vital Signs: [facility] 05/14/2015 General: well appearing, in no acute distress, alert Pain Behaviors: no pain behaviors observed Neurological: Mental Status: Alert and oriented to person, place and time. Affect is normal. Speech is spontaneous and fluent without dysarthria. Short and mcc memory, cognition and general fund of knowledge are good. Attention span and concentration are good. HEENT: Head is normocephalic and features were symmetric. Musculoskeletal: Patient able to sit up right in chair for entirety of visit. Cranial Nerves: III, IV, -EOMI: full. VII-face is symmetric without evidence of weakness. VIII-hearing intact. IMPRESSION: Sky Zamudio is a 52 year old year old female, with a history of bipolar, migraine without aura, obesity s/p gastric bypass, GABY, with chronic daily headaches consistent with chronic migraine. Improved significantly on Ajovy, in frequency, severity, and duration. Her rescue medications are also more effective now that her headaches are well controlled. She is tolerating all her medications well. We will continue the current regimen as rx'ed. Her neurological examination is essentially normal at this visit. PLAN: - cont ajovy, will renew auth - cont naratriptan < 10 days per month - cont fioricet < 5 days per month and reserve for rescue Prior Authorization: Sky Zamudio has been previously approved for Calcitonin Gene Related Peptide Monoclonal Antibody (CGRP MAB) (Fremanezumab). The patient has demonstrated the following: Patient reduction in overall migraine days: Yes Patient reduction in moderate-severe migraine days: Yes Individual has obtained clinical benefit deemed significant by individual or prescriber: Yes Patient's quality of life and ability to perform ADLs has improved: Yes We suggest the patient continue treatment with CGRP MAB Fremanezumab. The following preventative medications have been tried for three or more months without benefit: Anti-Convulsant Carbamazepine (Tegretol) Divalproex sodium (Depakote) Gabapentin (Neurontin) Lamotrigine (Lamictal) Topiramate (Topamax, Trokendi XL, Qudexy) Zonisamide (Zonegram) Anti-Depressant and Antipsychotic Amitriptyline (Elavil) Nortriptyline (Pamelor, Aventyl) Buspirone Blood Pressure Verapamil (Verelan, Calan, Isoptin) Hydrochlorothiazide MABs Erenumab (Aimovig) Works for only 2 weeks and then wears off. Fremanezumab (Ajovy) Worked good but insurance stopped covering. Supplements Magnesium The following abortive medications have been tried but require high frequency use which can lead to Medication Overuse Headache: Analgesic Acetaminophen with codeine (Tylenol #3) Butalbital/acetaminophen/caffeine (Fioricet) Hydrocodone/Acetaminophen (Vicodin, [place]) Ketorolac (Toradol) Meloxicam (Mobic) Oxycodone/Acetaminophen (Percocet) Anti-Anxiety Diazepam (Valium) Anti-Migraine Isometheptene/Acetaminophen/Dichloralp henazone (Midrin) Naratriptan (Amerge) Rizatriptan (Maxalt) Sumatriptan (Imitrex, Sumavel) GEPANTS Rimegepant (Nurtec) Over the Counter Medications Acetaminophen/Aspirin/Caffeine (Excedrin, Goody s) Ibuprofen (Advil, Motrin) Naproxen sodium (Aleve) HEADACHE MANAGEMENT: (You are the primary guardian of your health and headache. Keep track of all medications: This includes the reason for use, side effects and benefits.) MEDICATION TREATMENT: Medications to Start Taking None Discussed pathophysiology of headache. Discussed use of headache diary. Discussed triggers and lifestyle modifications including limiting caffeine consumption. Discussed treatment options, both abortive and preventive medications. Instructed patient about medications. Discussed potential adverse effects and drug interactions of medications. Discussed medication overuse headache and to limit use of analgesics to less than 2 doses per week. Headache education was done. Discussed lifestyle modification including increased oral hydration, decreased caffeine, exercise and stress management. Discussed treatment options including preventive and acute medications, natural supplements, and infusion therapy. Discussed medication overuse headache and to limit use of acute treatments to no more than 2 days/week or 10 days/month. Discussed medication side effects, adverse reactions and drug interactions. Written educational materials and patient instructions outlining all of the above were given. RESEARCH: None at this time Follow-up: 6 months Level of Service: Virtual Visit 30 minutes Jona Boyer APRN.CNP Headache Section [facility] October 04, 2022 Answers submitted by the patient for this visit: Headache Questionnaire (Submitted on 10/04/2022) How many days of work or school have you missed due to headaches in the last month? : 0 In the last month, how many headache days did you experience ALL of the following symptoms: decreased productivity, light sensitivity and nausea?: 7 How many days have you been completely free of headache pain in the last month? : 7 documented in this encounter [facility] 10-04-2022 History of Present illness Narrative Pt had connection issues and was rescheduled for a later same day appointment. documented in this encounter [facility] 09-16-2022 Miscellaneous Notes Order faxed to [facility] at [phone]. Confirmation received. Patient notified and verbalized understanding. PT order for shoulder printed, can we fax to [facility]? Patient called stating Dr. Griggs had put in order for her to have physical therapy for ankle injury. Patient was wondering if Dr. Griggs could add her shoulder to that order due to injury from same situation with ankle. 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 Please review and advise patient at [phone] Thank You Theresa Houston LPN documented in this encounter [facility] 09-03-2022 Miscellaneous Notes This is a Renewal PA for Ajovy that requires updated information, patient's last visit was 01/17/2022. Patient needs to schedule a visit for updated notes . Will complete PA after that visit. Deja Vaughn documented in this encounter [facility] 09-03-2022 Miscellaneous Notes Pt calling stating that she needs an Rx for ajovy as well as appt with . Per note from 03/05/22, [facility], We have received approval for your Ajovy medication, which is effective until 03/01/2023. Please contact your pharmacy for your medication. Also, please note you will need to schedule a follow up in January 2023 (a month before your authorization expires). We need updated office notes to re-submit for the renewal of your prior authorization upon expiration. Thank you, [facility] Last read by Sky Zamudio at 11:52 PM on 08/27/2022. Please sign order if desired and entered correctly, thanks Please assist with scheduling as well, thanks documented in this encounter [facility] 09-02-2022 Miscellaneous Notes Patient notified of providers message and verbalized understanding. RX sent. 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 Patient calling said she is taking antibiotic rx has 2 days left on it, now she has yeast infection. Patient is asking for 2 day Diflucan rx and external cream for itching? Patient uses [email or web address] for [facility]. Pended Diflucan rx, not sure what cream to pend, needs diagnosis. Please advise documented in this encounter [facility] 09-02-2022 History of Present illness Narrative Surendra Griggs MD Department of Orthopaedics [facility] [address] [place] [address] Dept: [phone] Dept September 02, 2022 CHIEF COMPLAINT: New and Pain of the Right Ankle HPI Patient here today for right ankle after her dog ran into the ankle x 3 weeks ago. She is having pain and swelling. She has been wearing a compression wrap on the ankle to help. X-ray completed on 08/30/2022. She is asking for a refill of the voltaren gel. ASSESSMENT: S93.491A Sprain of anterior talofibular ligament of right ankle, initial encounter (primary encounter diagnosis) M25.561 Acute pain of right knee M17.11 Primary osteoarthritis of right knee PLAN: Patient with a lateral ankle sprain. We will get her onto an anti-inflammatory and physical therapy. Ms. Sky Zamudio was advised as to contrast therapies and/or to take analgesics/anti-inflammatories as needed and all contraindications were reviewed. OBJECTIVE: Ms. Sky Zamudio is a pleasant 52 year old in no apparent distress. Gen:LMP 05/14/2015 nl development, morbidly obese , no deformities ENT: Normocephalic, normal hearing, moist mucosa CV: Pulses:DP/PT= 2+ and symmetric, capillary refill < 2 secs, no peripheral edema/varicosities Skin: no rash, bruising or lesions. Good turgor. Psych: cooperative and appropriate, alert and oriented x 3, good mood and affect. Musculoskeletal: Mild tenderness and soft tissue swelling over the anterior lateral ankle. No bony tenderness. No medial tenderness. No gross instability with talar tilt or anterior posterior drawer. Neurovascular exam intact. Imaging: IMPRESSION: Plantar calcaneal enthesophyte. Environmental Field Technician: KATHRYN Transcribe Date/Time: Sep 02 2022 10:31A Dictated by : MARLENA HERNANDEZ MD This examination was interpreted and the report reviewed and electronically signed by: MARLENA HERNANDEZ MD on Sep 02 2022 10:32AM EST Results-Findings * * *Final Report* * * DATE OF EXAM: Aug 29 2022 2:12PM WRX [id number] - XR ANKLE 3V AP/LAT/OBL RT / PROCEDURE REASON: Right ankle pain, unspecified chronicity * * * * Physician Interpretation * * * * TITLE: XR ANKLE 3V AP/LAT/OBL RT CLINICAL HISTORY: Right ankle pain, unspecified chronicity TECHNIQUE: 3 view radiographic study of the right ankle COMPARISON: Radiograph dated October 29, 2011 FINDINGS: No acute fracture or dislocation. Plantar calcaneal enthesophyte. Supporting Subjective Information Below: Past Surgical History: PAST SURGICAL HISTORY Procedure Laterality Date ADENOIDECTOMY PRIMARY <AGE 12 Adenoidectomy ANESTHESIA HERNIA REPAIR LOWER ABDOMEN NOS 01/31/2005 DELIVERY ONLY x 3 , low cervical CHOLECYSTECTOMY 03/05/2006 Cholecystectomy COLONOSCOPY FLX DX W/COLLJ SPEC WHEN PFRMD 03/13/2005 Colonoscopy COLONOSCOPY FLX DX W/COLLJ SPEC WHEN PFRMD 04/28/2018 Colonoscopy COLSC FLX W/RMVL OF TUMOR POLYP LESION SNARE TQ 04/02/16 ?mild colitis, tubular adenoma in rectal polyp - 5 year follow up EGD TRANSORAL BIOPSY SINGLE/MULTIPLE 04/04/10 mild gastritis ESOPHAGOGASTRODUODENOSCOPY TRANSORAL DIAGNOSTIC 03/13/2005 EGD ESOPHAGOGASTRODUODENOSCOPY TRANSORAL DIAGNOSTIC 09/14/2019 EGD HYSTERECTOMY HX 05/02/15 with repair of incidental cystotomy HYSTEROSCOPY, DIAGNOSTIC (SEPARATE 06/21/2010 hysteroscopy D&C, Novasure LIG/TRNSXJ FLP TUBE ABDL/VAG APPR UNI/BI Tubal ligation NEUROPLASTY &/TRANSPOS MEDIAN NRV CARPAL TUNNE 06/04/2007 Carpal tunnel decomp right PAST SURGICAL HISTORY OF Abd hernia and mesh placement REPAIR INCISIONAL HERNIA 04/02/2005 with mesh - 3cm infraumbilical - 5cm below umbilicus- medium ventralex mesh SLING OPER STRES INCONTINENCE 05/02/15 TONSILLECTOMY PRIMARY/SECONDARY <AGE 12 Tonsillectomy Medications: Current Outpatient Medications Medication Sig zolpidem (AMBIEN) 10 mg Take 1 tablet by mouth at bedtime as needed for up to 180 days. meloxicam (MOBIC) 15 mg tablet Take 1 tablet by mouth once daily. ALPRAZolam (XANAX) 0.5 mg tablet Take 1 tablet by mouth twice daily as needed for up to 7 days. cyclobenzaprine (FLEXERIL) 10 mg tablet Take 1 tablet by mouth three times daily as needed. carBAMazepine XR (TEGRETOL XR) 100 mg 12 hr tablet Take 1 tablet by mouth twice daily. Combine with 200 mg twice daily for 300 mg twice daily dose. carBAMazepine XR (TEGRETOL XR) 200 mg 12 hr tablet Take 1 tablet by mouth twice daily. Add to 100 mg twice daily for 300 mg twice daily total dose. acetaminophen 325 mg-caffeine 40 mg-butalbital 50 mg (FIORICET) per tablet Take 1 tablet by mouth every 6 hours if needed for headache. No more than 5 days per month. ondansetron orally disintegrating (ZOFRAN ODT) 4 mg disintegrating tablet Take 1 tablet by mouth every 6 hours as needed for nausea/vomiting. promethazine (PHENERGAN) 25 mg tablet Take 1 tablet by mouth every 8 hours as needed. lansoprazole (PREVACID) 30 mg capsule Take 1 capsule by mouth daily before breakfast. 1/2 hr before meal. ipratropium 20 mcg-albuterol 100 mcg (COMBIVENT RESPIMAT) 20-100 mcg/actuation inhaler Inhale 1 Puff as instructed four times daily as needed for wheezing/shortness of breath. albuterol HFA (VENTOLIN HFA) 90 mcg/actuation inhaler Inhale 2 Puffs as instructed every 4 hours as needed. loratadine-pseudoephedrine ER (LORATA-D) 10-240 mg Tb24 Take 1 tablet by mouth once daily. Lactobacillus acidophilus (FLORAJEN ACIDOPHILUS) 20 billion cell cap Take 1 capsule by mouth once daily. diclofenac (VOLTAREN) 1 % topical gel apply 4 grams to affected area four times a day as directed cimetidine (TAGAMET) 400 mg tablet Take 1 tablet by mouth twice daily. (Patient taking differently: Take 400 mg by mouth once daily.) Cholecalciferol, Vitamin D3, 50 mcg (2,000 unit) cap Take 2 capsules by mouth once daily. triamcinolone acetonide (NASACORT AQ) 55 mcg nasal inhaler Use 2 Sprays in the nose once daily as needed. estrogens conjugated (PREMARIN) 0.3 mg tablet Take 0.3 mg by mouth. Taking 3 times per week. Prescribed by outside OB. montelukast (SINGULAIR) 10 mg tablet Take 1 tablet by mouth daily at bedtime. multivitamin (TAB-A-JESSICA) tablet Take 1 tablet by mouth once daily. meclizine (ANTIVERT) 25 mg tab take 1/2 to 1 tablet by mouth every 6 hours if needed for dizziness hydroCHLOROthiazide (HYDRODIURIL, ESIDRIX) 25 mg tablet Take 1 tablet by mouth once daily as needed (fluid retention). EPINEPHrine (EPIPEN) 0.3 mg/0.3 mL auto-injector Inject subcutaneously. use as directed if needed after insect bite meloxicam (MOBIC) 15 mg tablet Take 1 tablet by mouth once daily. Take with food. ondansetron orally disintegrating (ZOFRAN ODT) 4 mg disintegrating tablet Take 1 tablet by mouth every 6 hours as needed for nausea/vomiting. naratriptan (AMERGE) 2.5 mg tablet Take 1 tab at migraine onset. May repeat once in 2 hours if needed. (Patient not taking: Reported on 09/02/2022) Benzonatate 200 mg capsule Take 1 capsule by mouth three times daily as needed. nicotine (NICODERM) 14 mg/24 hr Apply 1 Patch as directed every 24 hours. Use for 6 weeks, then decrease to 7mg daily. (Patient not taking: No sig reported) terconazole (TERAZOL 7) 0.4 % vaginal cream Use 1 Applicator vaginally daily at bedtime. (Patient not taking: No sig reported) sucralfate (CARAFATE) 1 gram tablet Take 1 tablet by mouth three times daily before meals. May dissolve 1 tab into ~ 2 tsp of water, drink as soon as dissolved. (Patient not taking: No sig reported) budesonide-formoterol (SYMBICORT) 80-4.5 mcg/actuation inhaler Inhale 2 Puffs as instructed twice daily. (Patient not taking: Reported on 08/27/2022) tbsaeunt-spxnrxlvl-ehserroxtqzpkg (CORTISPORIN) otic solution Use 3 Drops in the ears four times daily. (Patient taking differently: Use 3 Drops in the ears as needed.) No current facility-administered medications for this visit. Allergies: Bactrim [Sulfamethoxazole-Trimethoprim], Bees, Floxin [Ofloxacin], Ivp Dye [Iodine], Keflex [Cephalexin], Mangoes, Other, Smoke, Topamax [Topiramate], and Ultram [Tramadol Hcl] ROS: General (negative for fatigue, malaise, weight loss/gain) HEENT (negative for headache, earache, recent vision changes, sinus pain, sore throat) Respiratory (no recent shortness of breath, hemoptysis) CV (negative for chest tightness, palpitations) Musculoskeletal (see HPI) Psych (no depression, anxiety) Surendra Griggs MD documented in this encounter [facility] 08-29-2022 History of Present illness Narrative Radiology Service Progress Note PATIENT NAME: Sky Zamudio DATE OF SERVICE: August 29, 2022 TIME: 2:10 PM PATIENT IDENTITY VERIFICATION COMPLETED USING TWO (2) IDENTIFIERS: Name and Date of confirmed by patient verbally. FALL SCREENING: Has the patient had 2 falls in the last year or 1 fall with injury or currently using an Ambulatory Assistive Device (Walker, Cane, Wheelchair, Crutches, etc.)? No PATIENT GENDER DATA: Female. status: : No status: NO. PATIENT RELEVANT IMPLANT DATA REVIEWED: Not Applicable RADIOLOGY DEPARTMENT: General X-ray: Exam(s) Completed: Lower Extremity X-Ray(s): Ankle, Right and Wt. Bearing PERIPHERAL IV DATA: Not applicable SIGNED BY: RT Giovany(R) August 29, 2022 2:10 PM documented in this encounter [facility] 08-27-2022 Miscellaneous Notes PDMP website checked and validated. All prescriptions have been APPROPRIATELY filled. No suspicious activity was identified. 08/27/2022 by Molly Simpson APRN.[employer] VALENTE: 05/17/2022 xanax Last refill: 08/08/2022 QTY: 14 Refills: 0 ambien Last refill: 08/08/2022 QTY: 30 Refills: 0 Epi pen Last refill: 10/17/2021 QTY: 2 Refills: 1 documented in this encounter [facility] 08-27-2022 History of Present illness Narrative Radiology Service Progress Note PATIENT NAME: Sky Zamudio DATE OF SERVICE: August 27, 2022 TIME: 11:30 AM PATIENT IDENTITY VERIFICATION COMPLETED USING TWO (2) IDENTIFIERS: Name and Date of confirmed by patient verbally. FALL SCREENING: Has the patient had 2 falls in the last year or 1 fall with injury or currently using an Ambulatory Assistive Device (Walker, Cane, Wheelchair, Crutches, etc.)? No PATIENT GENDER DATA: Female. status: : No status: NO. PATIENT RELEVANT IMPLANT DATA REVIEWED: Yes RADIOLOGY DEPARTMENT: General X-ray: Exam(s) Completed: Rib X-Ray: Left PERIPHERAL IV DATA: Not applicable SIGNED BY: RT Theresa(R) August 27, 2022 11:30 AM documented in this encounter [facility] 08-27-2022 Miscellaneous Notes No acute findings on chest x-ray documented in this encounter [facility] 08-27-2022 Progress note Formatting of t his note might be different from the original. No acute findings on chest x-ray [facility] 08-27-2022 History of Present illness Narrative Images from the original note were not included. This note was created using [employer]. Subjective Sky Zamudio is a 52 year old female. Patient presents with: Established Patient: Possible broken ribs SUBJECTIVE: Sky Zamudio is a 52 year old year old lady here today for follow up appointment for review of medical conditions. Noted hurt shoulder when caught self on a chair when spun around then hurt ankle to keep from falling. Also noted hurt ribs when chiropractor did adjusment for shoulder and heard pop in ribs. Ribs still hurting since then (Friday). Worried about rib fractures. Using Cryoderm--helping some. Counter pressure helps. Hurts to take deep breath or sneeze. Just breathing shallow. Does not really feel SOB. Stopped HCTZ. Peeing every half hour. A little bit of burning with urinating. Pushing cranberry juice but ran out of cranberry pills. PAST MEDICAL HISTORY Diagnosis Date Abdominal pain, periumbilic Acute gastritis without mention of hemorrhage Bipolar disorder, unspecified (HCC) Chronic rhinitis Closed fracture of navicular (scaphoid) bone of foot 12/10/2011 Contact dermatitis and other eczema, due to unspecified cause Diaphragmatic hernia without mention of obstruction or gangrene Dysmenorrhea decreased Esophageal reflux Excessive or frequent menstruation Heavy periods resolved Irregular menstrual cycle Irregular periods Migraine headache Obesity, unspecified Other specified gastritis SLEEP APNEA NOS 12/12/2007 12-03-07: effic 87%, no stage III, AHI 5.5, REM 20.9, supine 3, snoring 98%-rec CPAP trial Stress incontinence Unspecified asthma(493.90) Unspecified symptom associated with female genital organs Current Outpatient Medications Medication Sig cyclobenzaprine (FLEXERIL) 10 mg tablet Take 1 tablet by mouth three times daily as needed. meloxicam (MOBIC) 15 mg tablet Take 1 tablet by mouth once daily. Take with food. carBAMazepine XR (TEGRETOL XR) 100 mg 12 hr tablet Take 1 tablet by mouth twice daily. Combine with 200 mg twice daily for 300 mg twice daily dose. carBAMazepine XR (TEGRETOL XR) 200 mg 12 hr tablet Take 1 tablet by mouth twice daily. Add to 100 mg twice daily for 300 mg twice daily total dose. acetaminophen 325 mg-caffeine 40 mg-butalbital 50 mg (FIORICET) per tablet Take 1 tablet by mouth every 6 hours if needed for headache. No more than 5 days per month. zolpidem (AMBIEN) 10 mg Take 1 tablet by mouth at bedtime as needed for up to 180 days. ondansetron orally disintegrating (ZOFRAN ODT) 4 mg disintegrating tablet Take 1 tablet by mouth every 6 hours as needed for nausea/vomiting. promethazine (PHENERGAN) 25 mg tablet Take 1 tablet by mouth every 8 hours as needed. lansoprazole (PREVACID) 30 mg capsule Take 1 capsule by mouth daily before breakfast. 1/2 hr before meal. ipratropium 20 mcg-albuterol 100 mcg (COMBIVENT RESPIMAT) 20-100 mcg/actuation inhaler Inhale 1 Puff as instructed four times daily as needed for wheezing/shortness of breath. albuterol HFA (VENTOLIN HFA) 90 mcg/actuation inhaler Inhale 2 Puffs as instructed every 4 hours as needed. loratadine-pseudoephedrine ER (LORATA-D) 10-240 mg Tb24 Take 1 tablet by mouth once daily. Lactobacillus acidophilus (FLORAJEN ACIDOPHILUS) 20 billion cell cap Take 1 capsule by mouth once daily. naratriptan (AMERGE) 2.5 mg tablet Take 1 tab at migraine onset. May repeat once in 2 hours if needed. diclofenac (VOLTAREN) 1 % topical gel apply 4 grams to affected area four times a day as directed cimetidine (TAGAMET) 400 mg tablet Take 1 tablet by mouth twice daily. (Patient taking differently: Take 400 mg by mouth once daily.) triamcinolone acetonide (NASACORT AQ) 55 mcg nasal inhaler Use 2 Sprays in the nose once daily as needed. EPINEPHrine (EPIPEN) 0.3 mg/0.3 mL auto-injector Inject subcutaneously. use as directed if needed after insect bite Benzonatate 200 mg capsule Take 1 capsule by mouth three times daily as needed. estrogens conjugated (PREMARIN) 0.3 mg tablet Take 0.3 mg by mouth. Taking 3 times per week. Prescribed by outside OB. montelukast (SINGULAIR) 10 mg tablet Take 1 tablet by mouth daily at bedtime. multivitamin (TAB-A-JESSICA) tablet Take 1 tablet by mouth once daily. rjuzuqhn-kmsxevyjz-cvtztdvpdikosu (CORTISPORIN) otic solution Use 3 Drops in the ears four times daily. (Patient taking differently: Use 3 Drops in the ears as needed.) meclizine (ANTIVERT) 25 mg tab take 1/2 to 1 tablet by mouth every 6 hours if needed for dizziness hydroCHLOROthiazide (HYDRODIURIL, ESIDRIX) 25 mg tablet Take 1 tablet by mouth once daily as needed (fluid retention). ondansetron orally disintegrating (ZOFRAN ODT) 4 mg disintegrating tablet Take 1 tablet by mouth every 6 hours as needed for nausea/vomiting. Cholecalciferol, Vitamin D3, 50 mcg (2,000 unit) cap Take 2 capsules by mouth once daily. meloxicam (MOBIC) 15 mg tablet Take 1 tablet by mouth once daily. (Patient not taking: Reported on 08/27/2022) nicotine (NICODERM) 14 mg/24 hr Apply 1 Patch as directed every 24 hours. Use for 6 weeks, then decrease to 7mg daily. (Patient not taking: No sig reported) terconazole (TERAZOL 7) 0.4 % vaginal cream Use 1 Applicator vaginally daily at bedtime. (Patient not taking: No sig reported) sucralfate (CARAFATE) 1 gram tablet Take 1 tablet by mouth three times daily before meals. May dissolve 1 tab into ~ 2 tsp of water, drink as soon as dissolved. (Patient not taking: No sig reported) budesonide-formoterol (SYMBICORT) 80-4.5 mcg/actuation inhaler Inhale 2 Puffs as instructed twice daily. (Patient not taking: Reported on 08/27/2022) No current facility-administered medications for this visit. Review of Systems Objective BP 112/60 Pulse 97 Temp (!) 35.9 C (96.7 F) Resp 18 Wt 123.4 kg (272 lb) LMP 05/14/2015 SpO2 97% BMI 46.69 kg/m Physical Exam Constitutional: Appearance: Normal appearance. HENT: Head: Normocephalic. Eyes: Conjunctiva/sclera: Conjunctivae normal. Cardiovascular: Rate and Rhythm: Normal rate and regular rhythm. Heart sounds: Normal heart sounds. Pulmonary: Effort: Pulmonary effort is normal. Breath sounds: Normal breath sounds. Chest: Musculoskeletal: Right lower leg: No edema. Left lower leg: No edema. Skin: General: Skin is warm and dry. Neurological: General: No focal deficit present. Mental Status: She is alert and oriented to person, place, and time. Psychiatric: Mood and Affect: Mood normal. Behavior: Behavior normal. Thought Content: Thought content normal. Judgment: Judgment normal. Assessment and Plan Encounter Diagnosis ICD-10-CM 1. Rib pain R07.81 XR RIBS/CHEST 3V AP RIB/OBLS/CXR LEFT 2. Anxiety F41.9 ALPRAZolam (XANAX) 0.5 mg tablet 3. UTI symptoms R39.9 UA DIP, URINE (POC) URINE CULTURE Xray as discussed. Further evaluation and treatment as indicated. Discussed prevention of atelectasis and pneumonia. Above issues addressed with patient. Patient involved in shared decision making for management of medical issues. History and medications reviewed. Epic updated as needed Refills and/or prescriptions taken care of and meds adjusted as indicated after reviewed history, exam and labs. Health Maintenance reviewed. Updated record and/or ordered tests as recorded. Encouraged on efforts at healthy diet and regular exercise and adequate sleep. Elliott Mahajan MD documented in this encounter [facility] 08-26-2022 Miscellaneous Notes VALENTE: 05/17/2022 Last refill: 05/17/2022 QTY: 30 Refills: 5 documented in this encounter [facility] 08-19-2022 Miscellaneous Notes Patient given results and verbalized understanding of instructions given. Maribeth Cox X-ray came back normal if symptoms persist patient should use the orthopedic referral and make an appointment for a follow-up. documented in this encounter [facility] 08-19-2022 History of Present illness Narrative Radiology Service Progress Note PATIENT NAME: Sky Zamudio DATE OF SERVICE: August 19, 2022 TIME: 5:16 PM PATIENT IDENTITY VERIFICATION COMPLETED USING TWO (2) IDENTIFIERS: Name and Date of confirmed by patient verbally. FALL SCREENING: Has the patient had 2 falls in the last year or 1 fall with injury or currently using an Ambulatory Assistive Device (Walker, Cane, Wheelchair, Crutches, etc.)? No PATIENT GENDER DATA: Female. status: : No status: NO. PATIENT RELEVANT IMPLANT DATA REVIEWED: Not Applicable RADIOLOGY DEPARTMENT: General X-ray: Exam(s) Completed: Upper Extremity X-Ray(s): Shoulder, AP / TRUE AP / AXILLARY right PERIPHERAL IV DATA: Not applicable SIGNED BY: RT Giovany(R) August 19, 2022 5:16 PM documented in this encounter [facility] 08-17-2022 History of Present illness Narrative This note was created using [employer]. Subjective Sky Zamudio is a 52 year old female. 52 year old female with PMH migraine, ashtma, and acid reflux presents for right shoulder pain. Acute onset of symptoms was 08/04/23, She fell and states that she ben right shoulder Denies head injury or LOC States that she saw chiropractor last week, States no xrays. He used his hammer which she states is a massager States that right shoulder with genealized pain and discomfort Limited ROM and states difficulty with lifting heavy objects. Denies being seen for this incident. States she has a history of shoulder issues in past, and has been in physical therapy. Has used Ibuprofen without relief. She is requesting Mobic, citing that has helped her in past. States she has an appointment with an orthopedic on the . The history is provided by the patient. No speech language pathologist travel was used. Trauma This is a new problem. The current episode started 1 to 4 weeks ago. The problem occurs constantly. The problem has been waxing and waning. Associated symptoms include headaches (@ baseline). Pertinent negatives include no abdominal pain, anorexia, arthralgias, change in bowel habit, chest pain, chills, congestion, coughing, diaphoresis, fatigue, fever, joint swelling, myalgias, nausea, neck pain, numbness, rash, sore throat, swollen glands, urinary symptoms, vertigo, visual change, vomiting or weakness. Exacerbated by: movement and touching. She has tried NSAIDs for the symptoms. The treatment provided no relief. PAST MEDICAL HISTORY Diagnosis Date Abdominal pain, periumbilic Acute gastritis without mention of hemorrhage Bipolar disorder, unspecified (HCC) Chronic rhinitis Closed fracture of navicular (scaphoid) bone of foot 12/10/2011 Contact dermatitis and other eczema, due to unspecified cause Diaphragmatic hernia without mention of obstruction or gangrene Dysmenorrhea decreased Esophageal reflux Excessive or frequent menstruation Heavy periods resolved Irregular menstrual cycle Irregular periods Migraine headache Obesity, unspecified Other specified gastritis SLEEP APNEA NOS 12/12/2007 12-03-07: effic 87%, no stage III, AHI 5.5, REM 20.9, supine 3, snoring 98%-rec CPAP trial Stress incontinence Unspecified asthma(493.90) Unspecified symptom associated with female genital organs PAST SURGICAL HISTORY Procedure Laterality Date ADENOIDECTOMY PRIMARY <AGE 12 Adenoidectomy ANESTHESIA HERNIA REPAIR LOWER ABDOMEN NOS 01/31/2005 DELIVERY ONLY x 3 , low cervical CHOLECYSTECTOMY 03/05/2006 Cholecystectomy COLONOSCOPY FLX DX W/COLLJ SPEC WHEN PFRMD 03/13/2005 Colonoscopy COLONOSCOPY FLX DX W/COLLJ SPEC WHEN PFRMD 04/28/2018 Colonoscopy COLSC FLX W/RMVL OF TUMOR POLYP LESION SNARE TQ 04/02/16 ?mild colitis, tubular adenoma in rectal polyp - 5 year follow up EGD TRANSORAL BIOPSY SINGLE/MULTIPLE 04/04/10 mild gastritis ESOPHAGOGASTRODUODENOSCOPY TRANSORAL DIAGNOSTIC 03/13/2005 EGD ESOPHAGOGASTRODUODENOSCOPY TRANSORAL DIAGNOSTIC 09/14/2019 EGD HYSTERECTOMY HX 05/02/15 with repair of incidental cystotomy HYSTEROSCOPY, DIAGNOSTIC (SEPARATE 06/21/2010 hysteroscopy D&C, Novasure LIG/TRNSXJ FLP TUBE ABDL/VAG APPR UNI/BI Tubal ligation NEUROPLASTY &/TRANSPOS MEDIAN NRV CARPAL TUNNE 06/04/2007 Carpal tunnel decomp right PAST SURGICAL HISTORY OF Abd hernia and mesh placement REPAIR INCISIONAL HERNIA 04/02/2005 with mesh - 3cm infraumbilical - 5cm below umbilicus- medium ventralex mesh SLING OPER STRES INCONTINENCE 05/02/15 TONSILLECTOMY PRIMARY/SECONDARY <AGE 12 Tonsillectomy ALLERGIES Bactrim [Sulfamethoxazole-Trimethoprim], Bees, Cipro [Ciprofloxacin], Floxin [Ofloxacin], Ivp Dye [Iodine], Keflex [Cephalexin], Mangoes, Other, Smoke, Topamax [Topiramate], and Ultram [Tramadol Hcl] MEDICATIONS carBAMazepine XR (TEGRETOL XR) 100 mg 12 hr tablet Take 1 tablet by mouth twice daily. Combine with 200 mg twice daily for 300 mg twice daily dose. acetaminophen 325 mg-caffeine 40 mg-butalbital 50 mg (FIORICET) per tablet Take 1 tablet by mouth every 6 hours if needed for headache. No more than 5 days per month. zolpidem (AMBIEN) 10 mg Take 1 tablet by mouth at bedtime as needed for up to 180 days. ondansetron orally disintegrating (ZOFRAN ODT) 4 mg disintegrating tablet Take 1 tablet by mouth every 6 hours as needed for nausea/vomiting. cyclobenzaprine (FLEXERIL) 10 mg tablet Take 1 tablet by mouth three times daily as needed. promethazine (PHENERGAN) 25 mg tablet Take 1 tablet by mouth every 8 hours as needed. lansoprazole (PREVACID) 30 mg capsule Take 1 capsule by mouth daily before breakfast. 1/2 hr before meal. ipratropium 20 mcg-albuterol 100 mcg (COMBIVENT RESPIMAT) 20-100 mcg/actuation inhaler Inhale 1 Puff as instructed four times daily as needed for wheezing/shortness of breath. albuterol HFA (VENTOLIN HFA) 90 mcg/actuation inhaler Inhale 2 Puffs as instructed every 4 hours as needed. loratadine-pseudoephedrine ER (LORATA-D) 10-240 mg Tb24 Take 1 tablet by mouth once daily. Lactobacillus acidophilus (FLORAJEN ACIDOPHILUS) 20 billion cell cap Take 1 capsule by mouth once daily. naratriptan (AMERGE) 2.5 mg tablet Take 1 tab at migraine onset. May repeat once in 2 hours if needed. diclofenac (VOLTAREN) 1 % topical gel apply 4 grams to affected area four times a day as directed cimetidine (TAGAMET) 400 mg tablet Take 1 tablet by mouth twice daily. (Patient taking differently: Take 400 mg by mouth once daily.) Cholecalciferol, Vitamin D3, 50 mcg (2,000 unit) cap Take 2 capsules by mouth once daily. triamcinolone acetonide (NASACORT AQ) 55 mcg nasal inhaler Use 2 Sprays in the nose once daily as needed. EPINEPHrine (EPIPEN) 0.3 mg/0.3 mL auto-injector Inject subcutaneously. use as directed if needed after insect bite Benzonatate 200 mg capsule Take 1 capsule by mouth three times daily as needed. estrogens conjugated (PREMARIN) 0.3 mg tablet Take 0.3 mg by mouth. Taking 3 times per week. Prescribed by outside OB. montelukast (SINGULAIR) 10 mg tablet Take 1 tablet by mouth daily at bedtime. multivitamin (TAB-A-JESSICA) tablet Take 1 tablet by mouth once daily. budesonide-formoterol (SYMBICORT) 80-4.5 mcg/actuation inhaler Inhale 2 Puffs as instructed twice daily. jxdaxaiu-dnynpnrlz-tzkuduolslvhrt (CORTISPORIN) otic solution Use 3 Drops in the ears four times daily. (Patient taking differently: Use 3 Drops in the ears as needed.) meclizine (ANTIVERT) 25 mg tab take 1/2 to 1 tablet by mouth every 6 hours if needed for dizziness hydroCHLOROthiazide (HYDRODIURIL, ESIDRIX) 25 mg tablet Take 1 tablet by mouth once daily as needed (fluid retention). meloxicam (MOBIC) 15 mg tablet Take 1 tablet by mouth once daily. Take with food. carBAMazepine XR (TEGRETOL XR) 200 mg 12 hr tablet Take 1 tablet by mouth twice daily. Add to 100 mg twice daily for 300 mg twice daily total dose. ondansetron orally disintegrating (ZOFRAN ODT) 4 mg disintegrating tablet Take 1 tablet by mouth every 6 hours as needed for nausea/vomiting. meloxicam (MOBIC) 15 mg tablet Take 1 tablet by mouth once daily. (Patient not taking: Reported on 08/17/2022) nicotine (NICODERM) 14 mg/24 hr Apply 1 Patch as directed every 24 hours. Use for 6 weeks, then decrease to 7mg daily. (Patient not taking: Reported on 05/17/2022) terconazole (TERAZOL 7) 0.4 % vaginal cream Use 1 Applicator vaginally daily at bedtime. (Patient not taking: Reported on 05/17/2022) sucralfate (CARAFATE) 1 gram tablet Take 1 tablet by mouth three times daily before meals. May dissolve 1 tab into ~ 2 tsp of water, drink as soon as dissolved. (Patient not taking: Reported on 05/17/2022) FAMILY HISTORY Problem Relation Age of Onset other (bipolar) Mother Arthritis Mother other (den disc disease) Father Dementia Father other (bipolar) Brother asthma other (crohns) Brother other (Migraine) Brother Diabetes Maternal Grandmother Heart Maternal Grandmother other (Agustín's disease) Daughter other (Agustín's Disease) Son other (Agustín's Disease) Son other (Bipolar) Son Breast Cancer Other Maternal Cousin Social History Tobacco Use Smoking status: Former Types: Cigars Start date: 12/09/2021 Smokeless tobacco: Never Tobacco comments: smokes 4 Clove cigars daily. 04/2026 Vaping Use Vaping Use: Never used Substance Use Topics Alcohol use: Yes Comment: once a month Drug use: Yes Types: Marijuana Comment: Lots of coffee per day/uses marijuana when pain gets severe Review of Systems Constitutional: Negative for chills, diaphoresis, fatigue and fever. HENT: Negative for congestion, sinus pressure, sinus pain and sore throat. Eyes: Negative for pain, discharge, redness and itching. Respiratory: Negative for apnea, cough, choking and chest tightness. Cardiovascular: Negative for chest pain. Gastrointestinal: Negative for abdominal pain, anorexia, change in bowel habit, diarrhea, nausea and vomiting. Musculoskeletal: Negative for arthralgias, joint swelling, myalgias and neck pain. Right shoulder pain Skin: Negative for color change, pallor and rash. Allergic/Immunologic: Negative for environmental allergies and food allergies. Neurological: Positive for headaches (@ baseline). Negative for dizziness, vertigo, facial asymmetry, weakness, light-headedness and numbness. Hematological: Negative for adenopathy. Does not bruise/bleed easily. Psychiatric/Behavioral: Negative for agitation and behavioral problems. Objective BP 138/100 Pulse 105 Temp (!) 35.6 C (96 F) Resp 21 Wt 123.7 kg (272 lb 12.8 oz) LMP 05/14/2015 SpO2 98% BMI 46.83 kg/m Physical Exam Vitals and nursing note reviewed. Constitutional: General: She is not in acute distress. Appearance: Normal appearance. She is normal weight. She is not ill-appearing, toxic-appearing or diaphoretic. HENT: Head: Normocephalic and atraumatic. Right Ear: Ear canal and external ear normal. Left Ear: Ear canal and external ear normal. Nose: Nose normal. No congestion or rhinorrhea. Mouth/Throat: Mouth: Mucous membranes are moist. Pharynx: No oropharyngeal exudate or posterior oropharyngeal erythema. Eyes: General: Right eye: No discharge. Left eye: No discharge. Extraocular Movements: Extraocular movements intact. Conjunctiva/sclera: Conjunctivae normal. Pupils: Pupils are equal, round, and reactive to light. Cardiovascular: Rate and Rhythm: Normal rate and regular rhythm. Pulses: Normal pulses. Heart sounds: Normal heart sounds. No murmur heard. No friction rub. Pulmonary: Effort: Pulmonary effort is normal. No respiratory distress. Breath sounds: Normal breath sounds. No stridor. No wheezing, rhonchi or rales. Chest: Chest wall: No tenderness. Abdominal: General: Abdomen is flat. There is no distension. Palpations: Abdomen is soft. There is no mass. Tenderness: There is no abdominal tenderness. There is no right CVA tenderness, left CVA tenderness, guarding or rebound. Hernia: No hernia is present. Musculoskeletal: General: No swelling, tenderness, deformity or signs of injury. Normal range of motion. Cervical back: Normal range of motion and neck supple. No rigidity. Right lower leg: No edema. Left lower leg: No edema. Lymphadenopathy: Cervical: No cervical adenopathy. Skin: General: Skin is warm and dry. Capillary Refill: Capillary refill takes less than 2 seconds. Coloration: Skin is not jaundiced or pale. Findings: No bruising, erythema, lesion or rash. Neurological: General: No focal deficit present. Mental Status: She is alert and oriented to person, place, and time. Cranial Nerves: No cranial nerve deficit. Sensory: No sensory deficit. Motor: No weakness. Coordination: Coordination normal. Gait: Gait normal. Psychiatric: Mood and Affect: Mood normal. Behavior: Behavior normal. Thought Content: Thought content normal. Judgment: Judgment normal. Assessment and Plan ASSESSMENT/PLAN: 1. Acute pain of right shoulder - ICD9: 719.41, ICD10: M25.511 Occurred on States that she fell Denies seeking medical treatment at that time Right shoulder pain (has history of shoulder pain and has had PT) Presents today requesting Mobic, citing that has worked in past. She will represent on Friday08/19/22 for xrays (not available at time of presentation) She also has appt with her orthopedic in a few weeks can't remember his name - CONSULT TO ORTHOPAEDICS in the event it is needed. - XR SHOULDER GENERAL 3V OR MORE AP/TRUE AP/OTHER RIGHT RICE OTC medicines Claire Mendiola APRN.MIGUE documented in this encounter [facility] 08-15-2022 Miscellaneous Notes Last office visit: 01/17/2022 Future office visit: none Patient phoned to request the following prescription(s) Requested Prescriptions Pending Prescriptions Disp Refills carBAMazepine XR (TEGRETOL XR) 100 mg 12 hr tablet 180 tablet 3 Sig: Take 1 tablet by mouth twice daily. Combine with 200 mg twice daily for 300 mg twice daily dose. carBAMazepine XR (TEGRETOL XR) 200 mg 12 hr tablet 180 tablet 3 Sig: Take 1 tablet by mouth twice daily. Add to 100 mg twice daily for 300 mg twice daily total dose. acetaminophen 325 mg-caffeine 40 mg-butalbital 50 mg (FIORICET) per tablet 20 tablet 5 Sig: Take 1 tablet by mouth every 6 hours if needed for headache. No more than 5 days per month. Patient aware RX will be sent to pharmacy. No need to notify patient. Please review. Juanis Robb Ma documented in this encounter [facility] 08-08-2022 Miscellaneous Notes left a message for pt that her medications have been refilled. Syeda Barrett LPN The following approved medication requests have been transmitted electronically. Requested Prescriptions Signed Prescriptions Disp Refills zolpidem (AMBIEN) 10 mg 30 tablet 0 Sig: Take 1 tablet by mouth at bedtime as needed for up to 180 days. Authorizing Provider: ELLIOTT MAHAJAN ALPRAZolam (XANAX) 0.5 mg tablet 14 tablet 0 Sig: Take 1 tablet by mouth twice daily as needed for up to 7 days. Authorizing Provider: ELLIOTT MAHAJAN MD Patient has been identified by name and date of : Patient phones for refill(s): Requested Prescriptions Pending Prescriptions Disp Refills zolpidem (AMBIEN) 10 mg 30 tablet 0 Sig: Take 1 tablet by mouth at bedtime as needed for up to 180 days. ALPRAZolam (XANAX) 0.5 mg tablet 14 tablet 0 Sig: Take 1 tablet by mouth twice daily as needed for up to 7 days. Date of last office visit in primary care: 05/17/2022, has appt 12/17/2022 Last 2 Encounter Wt Readings: Date: Wt: 05/17/2022 117.5 kg (259 lb) 01/17/2022 117.9 kg (260 lb) Previous labs/tests for medication: Not applicable Please advise. Thank you. Rosemary Gunn LPN documented in this encounter [facility] 05-17-2022 Instructions Americo Khan APRN.SUPERVISOR PLASTIC SHEETS - 05/17/2022 11:57 AM EDT Check to see if your insurance covers Tdap and shingles vaccine and what location to get the vaccine -usually best covered at your local pharmacy where you get prescriptions filled documented in this encounter [facility] 05-17-2022 History of Present illness Narrative SUBJECTIVE: HEPATITIS B(1 of 3 - 3-dose series) Never done COVID-19 VACCINE(1) Never done PNEUMOCOCCAL(1 - PCV) Never done SPIROMETRY Never done DTAP,TDAP,TD(2 - Tdap) due on 02/26/2014 MAMMOGRAM due on 08/12/2017 SHINGRIX VACCINE(1 of 2) Never done PAP TESTING due on 04/14/2020 HPV TESTING due on 04/14/2020 DEPRESSION ASSESSMENT Never done INFLUENZA(1) due on 04/11/2022 HPI Sky Zamudio is a 52 year old female. PMH signficiant for ACTIVE PROBLEM LIST Esophageal Reflux Chronic Rhinitis Bipolar Disorder, Unspecified (Hcc) Other Specified Disorder of Gallbladder Mild Persistent Asthma Without Complication Obesity, Unspecified Irritable Bowel Syndrome Carpal Tunnel Syndrome Allergic Rhinitis, Cause Unspecified Calcaneal Spur Anxiety State, Unspecified Equinus Deformity of Foot, Acquired Unspecified Sleep Apnea Migraine Headache Acute Gastritis Without Mention of Hemorrhage Dysmenorrhea Irregular Menstrual Cycle Female Stress Incontinence Cystocele, Midline Ventral Hernia Strain of Rectus Abdominis Muscle Abdominal Pain Body Mass Index 40.0-44.9, Adult (Hcc) Nausea and Vomiting Mixed Incontinence Chronic Migraine Without Aura, With Intractable Migraine, So Stated, With Status Migrainosus Intractable Chronic Migraine Without Aura and Without Status Migrainosus Medication Overuse Headache Rebound Headache Axillary Mass Vitamin D Deficiency Atrophic Vaginitis Chronic Daily Headache Status Migrainosus Migraine Without Aura and Without Status Migrainosus, Not Intractable Anxiety Insomnia Intractable Chronic Migraine Without Aura and With Status Migrainosus Today notes UTI symptoms x 2 months, lower abdominal pain dysuria and frequency reported. Has not sought care.Reports vaginal itching. Reports she will be seeing HIGH [employer]CHOOL [employer]IC INSTRUCTOR in near future. Mood stable. Asthma without recent exacerbation. Reports she quit smoking. GERD: without current complaints. Notes she had Covid19 a couple of months ago, still noting fatigue. Occasional use of ambien for sleep, effective, no AEs noted. History of cystocele, incontinence; stable. Foot deformity unchanged. Review of Systems Constitutional: Positive for fatigue. Gastrointestinal: Positive for abdominal pain. Objective BP 131/79 Pulse 89 Wt 117.5 kg (259 lb) LMP 05/14/2015 SpO2 97% BMI 44.46 kg/m Physical Exam Vitals and nursing note reviewed. Constitutional: Appearance: Normal appearance. HENT: Head: Normocephalic and atraumatic. Eyes: Conjunctiva/sclera: Conjunctivae normal. Cardiovascular: Rate and Rhythm: Normal rate and regular rhythm. Heart sounds: Normal heart sounds. Pulmonary: Effort: Pulmonary effort is normal. Breath sounds: Normal breath sounds. Abdominal: General: Bowel sounds are normal. Palpations: Abdomen is soft. Tenderness: There is abdominal tenderness (mild TTP lower abdomen). Skin: General: Skin is warm and dry. Neurological: Mental Status: She is alert. Mental status is at baseline. ALLERGIES Allergen Reactions Bactrim [Sulfametho* GI Upset complained of stomach cramps though had tolerated in the past Bees Cipro [Ciprofloxaci* Swelling, Itching Floxin [Ofloxacin] interaction with valproic acid; caused bipolar exacerbation with depression ( bipolar low ) Ivp Dye [Iodine] Anaphylaxis Keflex [Cephalexin] Mental Status Change, Itching bipolar low at same time; not sure if from med; no rash was associated Mangoes Other environmental Smoke Shortness of Breath Topamax [Topiramate] Dizziness Ultram [Tramadol Hc* Other: See Comments Migraine headaches Medications ondansetron orally disintegrating (ZOFRAN ODT) 4 mg disintegrating tablet Take 1 tablet by mouth every 6 hours as needed for nausea/vomiting. naratriptan (AMERGE) 2.5 mg tablet Take 1 tab at migraine onset. May repeat once in 2 hours if needed. diclofenac (VOLTAREN) 1 % topical gel apply 4 grams to affected area four times a day as directed zolpidem (AMBIEN) 10 mg Take 1 tablet by mouth at bedtime as needed for up to 180 days. Do not start before November 16, 2021. cimetidine (TAGAMET) 400 mg tablet Take 1 tablet by mouth twice daily. Cholecalciferol, Vitamin D3, 50 mcg (2,000 unit) cap Take 2 capsules by mouth once daily. ondansetron orally disintegrating (ZOFRAN ODT) 4 mg disintegrating tablet Take 1 tablet by mouth every 6 hours as needed for nausea/vomiting. cyclobenzaprine (FLEXERIL) 10 mg tablet Take 1 tablet by mouth three times daily as needed. triamcinolone acetonide (NASACORT AQ) 55 mcg nasal inhaler Use 2 Sprays in the nose once daily as needed. meloxicam (MOBIC) 15 mg tablet Take 1 tablet by mouth once daily. EPINEPHrine (EPIPEN) 0.3 mg/0.3 mL auto-injector Inject subcutaneously. use as directed if needed after insect bite Benzonatate 200 mg capsule Take 1 capsule by mouth three times daily as needed. nicotine (NICODERM) 14 mg/24 hr Apply 1 Patch as directed every 24 hours. Use for 6 weeks, then decrease to 7mg daily. terconazole (TERAZOL 7) 0.4 % vaginal cream Use 1 Applicator vaginally daily at bedtime. estrogens conjugated (PREMARIN) 0.3 mg tablet Take 0.3 mg by mouth. Taking 3 times per week. Prescribed by outside OB. sucralfate (CARAFATE) 1 gram tablet Take 1 tablet by mouth three times daily before meals. May dissolve 1 tab into ~ 2 tsp of water, drink as soon as dissolved. montelukast (SINGULAIR) 10 mg tablet Take 1 tablet by mouth daily at bedtime. multivitamin (TAB-A-JESSICA) tablet Take 1 tablet by mouth once daily. carBAMazepine XR (TEGRETOL XR) 100 mg 12 hr tablet Take 1 tablet by mouth twice daily. Combine with 200 mg twice daily for 300 mg twice daily dose. (Patient taking differently: Take 100 mg by mouth once daily. Combine with 200 mg twice daily for 300 mg twice daily dose. ) carBAMazepine XR (TEGRETOL XR) 200 mg 12 hr tablet Take 1 tablet by mouth twice daily. Add to 100 mg twice daily for 300 mg twice daily total dose. fremanezumab-vfrm ([employer]OVY AUTOINJECTOR) 225 mg/1.5 mL auto-injector Inject 1.5 mL subcutaneously once every month. acetaminophen 325 mg-caffeine 40 mg-butalbital 50 mg (FIORICET) per tablet Take 1 tablet by mouth every 6 hours if needed for headache. No more than 5 days per month. budesonide-formoterol (SYMBICORT) 80-4.5 mcg/actuation inhaler Inhale 2 Puffs as instructed twice daily. nicotine polacrilex (NICORETTE) 4 mg gum Take 1 Each by mouth as needed. Max of 24 pieces per day. lansoprazole (PREVACID) 30 mg capsule Take 1 capsule by mouth daily before breakfast. 1/2 hr before meal. vmnefgip-hbswgzksj-nmkpjlztojkpse (CORTISPORIN) otic solution Use 3 Drops in the ears four times daily. (Patient taking differently: Use 3 Drops in the ears as needed. ) loratadine-pseudoephedrine ER (LORATA-D) 10-240 mg Tb24 Take 1 tablet by mouth once daily. ipratropium 20 mcg-albuterol 100 mcg (COMBIVENT RESPIMAT) 20-100 mcg/actuation inhaler Inhale 1 Puff as instructed four times daily as needed. albuterol HFA (VENTOLIN HFA) 90 mcg/actuation inhaler Inhale 2 Puffs as instructed every 4 hours as needed. Lactobacillus acidophilus (FLORAJEN ACIDOPHILUS) 20 billion cell cap Take 1 capsule by mouth once daily. meclizine (ANTIVERT) 25 mg tab take 1/2 to 1 tablet by mouth every 6 hours if needed for dizziness promethazine (PHENERGAN) 25 mg tablet Take 1 tablet by mouth every 8 hours as needed. hydroCHLOROthiazide (HYDRODIURIL, ESIDRIX) 25 mg tablet Take 1 tablet by mouth once daily as needed (fluid retention). PAST MEDICAL HISTORY Diagnosis Date Abdominal pain, periumbilic Acute gastritis without mention of hemorrhage Bipolar disorder, unspecified (HCC) Chronic rhinitis Closed fracture of navicular (scaphoid) bone of foot 12/10/2011 Contact dermatitis and other eczema, due to unspecified cause Diaphragmatic hernia without mention of obstruction or gangrene Dysmenorrhea decreased Esophageal reflux Excessive or frequent menstruation Heavy periods resolved Irregular menstrual cycle Irregular periods Migraine headache Obesity, unspecified Other specified gastritis SLEEP APNEA NOS 12/12/2007 12-03-07: effic 87%, no stage III, AHI 5.5, REM 20.9, supine 3, snoring 98%-rec CPAP trial Stress incontinence Unspecified asthma(493.90) Unspecified symptom associated with female genital organs Social History Tobacco Use Smoking status: Every Day Types: Cigars Smokeless tobacco: Never Tobacco comments: smokes 4 Clove cigars daily. 04/2026 Vaping Use Vaping Use: Never used Substance Use Topics Alcohol use: Yes Comment: once a month Drug use: Yes Types: Marijuana Comment: Lots of coffee per day/uses marijuana when pain gets severe Component Latest Ref Rng & Units 05/02/2021 11/14/2021 Protein, Total 6.3 - 8.0 g/dL 7.3 7.6 Albumin 3.9 - 4.9 g/dL 4.1 4.3 Calcium 8.5 - 10.2 mg/dL 9.6 9.5 Bilirubin, Total 0.2 - 1.3 mg/dL 0.2 0.3 Alkaline Phosphatase 34 - 123 U/L 148 (H) 165 (H) AST 13 - 35 U/L 22 19 Glucose 74 - 99 mg/dL 72 (L) 79 BUN 7 - 21 mg/dL 18 15 Creatinine 0.58 - 0.96 mg/dL 0.96 0.76 Sodium 136 - 144 mmol/L 139 140 Potassium 3.7 - 5.1 mmol/L 4.2 4.4 Chloride 97 - 105 mmol/L 103 102 CO2 22 - 30 mmol/L 22 25 Anion Gap 9 - 18 mmol/L 14 13 ALT 7 - 38 U/L 19 16 eGFR- >60 eGFR-All Other Races . >60 eGFR >=60 mL/min/1.73m 95 WBC 3.70 - 11.00 k/uL 13.58 (H) 12.60 (H) RBC 3.90 - 5.20 m/uL 5.22 (H) 5.31 (H) Hemoglobin 11.5 - 15.5 g/dL 15.5 15.9 (H) Hematocrit 36.0 - 46.0 % 48.0 (H) 49.3 (H) MCV 80.0 - 100.0 fL 92.0 92.8 MCH 26.0 - 34.0 pg 29.7 29.9 MCHC 30.5 - 36.0 g/dL 32.3 32.3 RDW-CV 11.5 - 15.0 % 13.0 12.7 Platelet Count 150 - 400 k/uL 360 375 MPV 9.0 - 12.7 fL 10.7 9.5 Absolute nRBC <0.01 k/uL <0.01 <0.01 Total Cholesterol, Nonfasting <200 mg/dL 226 (H) Triglycerides, Nonfasting <150 mg/dL 156 (H) HDL Cholesterol, Nonfasting >39 mg/dL 51 LDL Cholesterol, Nonfasting <100 mg/dL 144 (H) Non HDL Cholesterol, Nonfasting <130 mg/dL 175 (H) VLDL Cholesterol, Nonfasting <30 mg/dL 31 (H) Total Chol/HDL Ratio, Nonfasting <5.10 mg/dL 4.43 LDL/HDL Ratio, Nonfasting <2.54 mg/dL 2.82 (H) Hemoglobin A1C 4.3 - 5.6 % 5.7 (H) 5.6 Estimated Average Glucose mg/dL 117 114 Vitamin D 25 Hydroxy 31.0 - 80.0 ng/mL 38.5 33.4 Carbamazepine 4.0 - 12.0 ug/mL 4.5 Magnesium 1.7 - 2.3 mg/dL 2.2 ASSESSMENT/PLAN: 1. Encounter for immunization - ICD9: V03.89, ICD10: Z23 (primary diagnosis) All vaccines declined at this time. - HEPLISAV B (HEPATITIS B, ADJUVANT, ADULT) 2. Mild persistent asthma without complication - ICD9: 493.90, ICD10: J45.30 Stable, currently controlled, continue to monitor. - SPIROMETRY - BASELINE AND POST DILATOR 3. Screening for cervical cancer - ICD9: V76.2, ICD10: Z12.4 follow up with [employer] 4. Migraine with aura and without status migrainosus, not intractable - ICD9: 346.00, ICD10: G43.109 Stable, currently controlled, continue to monitor. - PROMETHAZINE 25 MG TABLET 5. Vagina itching - ICD9: 698.1, ICD10: N89.8 6. UTI symptoms - ICD9: 788.99, ICD10: R39.9 Keep [facility]PITAL [facility] BILLER appt Let us know if not feeling improved - UA DIP, URINE (POC) - URINE CULTURE - FLUCONAZOLE 150 MG TABLET - NITROFURANTOIN MONOHYDRATE & MACROCRYSTAL 100 MG ORAL CAP 7. Gastroesophageal reflux disease, unspecified whether esophagitis present - ICD9: 530.81, ICD10: K21.9 Stable, currently controlled, continue to monitor. - LANSOPRAZOLE 30 MG CAPSULE,DELAYED RELEASE 8. Mild intermittent asthma without complication - ICD9: 493.90, ICD10: J45.20 Stable, currently controlled, continue to monitor. - COMBIVENT RESPIMAT 20 MCG-100 MCG/ACTUATION SOLUTION FOR INHALATION 9. Insomnia, unspecified type - ICD9: 780.52, ICD10: G47.00 Stable, currently controlled, continue to monitor. - ZOLPIDEM 10 MG TABLET PDMP website checked and validated. All prescriptions have been APPROPRIATELY filled. No suspicious activity was identified. 05/17/2022 by Americo Khan APRN.SUPERVISOR PLASTIC SHEETS 10. Female stress incontinence - ICD9: 625.6, ICD10: N39.3 Stable, currently controlled, continue to monitor. 11. Acquired equinus deformity of foot, unspecified laterality - ICD9: 736.72, ICD10: M21.6X9 Stable, currently controlled, continue to monitor. 6 mo follow up with labs MD Americo Cesar APRN.SUPERVISOR PLASTIC SHEETS Medical Decision Making: Problems: Moderate: 2+ stable chronic illnesses Risk: Moderate: Drug management Medical Decision Making Level: 4 - Moderate documented in this encounter [facility] 03-05-2022 Miscellaneous Notes Images from the original note were not included. I have completed PA over in [facility]. Sky Zamudio Felix: [id number] - PA Case ID: [id number] status Sent to [facility] (fremanezumab-vfrm) injection 225MG/1.5ML auto-injectors Form [employer] Non-Medicare Electronic PA Form (2016 [facility]) Sakina Ortiz MA Patient calling about her fremanezumab-vfrm ([employer]OVY AUTOINJECTOR) 225 mg/1.5 mL auto-injector. She is showing still having refills. She states the pharmacy is telling her that she needs another prior auth. Please advise. documented in this encounter [facility] 02-16-2022 Miscellaneous Notes Patient calling with request for medication/refill: Patient/caregiver requesting refill of xanax and zofran be called to [facility] pharmacy at [place]. and Do you have enough medication to last until the office reopens? No. . Patient denies any new or worsening symptoms of which a provider is not aware: Yes. Ms. Zamudio requesting refill of xanax and zofran. Her mother is actively dying of cancer, they are currently saying their goodbyes and she is feeling very anxious and having difficulty sleeping. Dr. Mejia to place orders. Ms. Zamudio was notified. documented in this encounter [facility] 02-14-2022 Miscellaneous Notes Patient returned call and LMOM saying she is in [place] visiting sister and can be reached on her sister's phone ([phone]). PharmD called, spoke with sister since patient was unavailable. Left message asking her to tell Sky to give me a call sometime when she is back in [place]. Niecy Dick PharmD, [facility] Primary Care Clinical Pharmacist Eugenia Potts [facility] Called patient to schedule f/up appt with PharmRina for smoking cessation. Spoke to a man who said patient was out of state. He took PharmRina phone number and said would give her the message to call back. Niecy Dick PharmD, [facility] Primary Care Clinical Pharmacist Eugenia Potts [facility] documented in this encounter [facility] 01-17-2022 History of Present illness Narrative Headache Center - Follow-up Visit ASSESSMENT: 51 year old female with history significant for bipolar, migraine without aura, obesity s/p gastric bypass, GABY, with chronic daily headaches consistent with chronic migraine. Did well with Botox, going from 25 days of bad migraine days down to 1 day at best per month a couple times, but then subsequent rounds were not effective, so we changed to Aimovig. Aimovig worked well for only 2 weeks and then wears off. Ajovy is lasting longer and wears off 3rd/4th week. PLAN: (Please see typed patient instructions for detailed instructions) ---> Acute Treatment: -Fioricet < 5 days per month and reserve for rescue. -Naratriptan < 10 days per month. ---> Preventive Treatment: -Tegretol XR 300 mg bid. This was initially prescribed by her psychiatrist for bipolar disorder, but she started to ask me to refill it since she no longer follows with the psychiatrist. -Ce monthly. Also discussed Vyepti as a future consideration. -If migraines start worsening, we may need to restart Topamax. ---> Follow-up: 6 months. Last visit: 07/26/21 Interval Headache Hx: Ce lasts longer than Aimovig, wears off during 3rd/4th week. Averaging 5-7 overall headache days of lower level migraine. Cannabis is very effective and she uses occasionally. HEADACHE SCORES: Headache Questions 07/21/2021 01/17/2022 ER visits since last office visit: 2 0 Hospital stays since last office visit - 0 Limited ADLs in the last month: - 7 Days missed from work or school in the last month: - 0 Days headache pain free in the last month: - 25 Days per month with ALL of the following symptoms - decreased productivity, light sensitivity and nausea: - 5 Initial improvement of headache after botox injection at last visit: Not applicable, I did not have a botox injection at my last visit - PRN medication usage in the last month: - 7 Patient impression of improvement since last visit: Minimally improved Much improved HIT-6 07/21/2021 01/17/2022 HIT-6 Incomplete 62 (Severe impact) RAMONA - 2/7 SCORES 03/03/2018 07/21/2021 01/17/2022 RAMONA-2 Score 2 2 2 Migraine Specific QOL - Higher scores indicate better HRQL 01/17/2022 Role Function-Restrictive Transformed Score (range: 0-100) 60 Role Function-Preventive Transformed Score (range: 0-100) 80 Emotional Function Transformed Score (range: 0-100) 80 PHQ-9 04/03/2017 07/21/2021 01/17/2022 Score 1 5 4 MEDS: Current Outpatient Medications Medication Sig diclofenac (VOLTAREN) 1 % topical gel apply 4 grams to affected area four times a day as directed zolpidem (AMBIEN) 10 mg Take 1 tablet by mouth at bedtime as needed for up to 180 days. Do not start before November 16, 2021. SUMAtriptan (IMITREX) 100 mg tablet Take 1/2 to 1 Tablet By Mouth If needed At Onset Of Migraine And REpeat On Or After 2 Hours If needed cimetidine (TAGAMET) 400 mg tablet Take 1 tablet by mouth twice daily. Cholecalciferol, Vitamin D3, 50 mcg (2,000 unit) cap Take 2 capsules by mouth once daily. ondansetron orally disintegrating (ZOFRAN ODT) 4 mg disintegrating tablet Take 1 tablet by mouth every 6 hours as needed for nausea/vomiting. cyclobenzaprine (FLEXERIL) 10 mg tablet Take 1 tablet by mouth three times daily as needed. triamcinolone acetonide (NASACORT AQ) 55 mcg nasal inhaler Use 2 Sprays in the nose once daily as needed. meloxicam (MOBIC) 15 mg tablet Take 1 tablet by mouth once daily. EPINEPHrine (EPIPEN) 0.3 mg/0.3 mL auto-injector Inject subcutaneously. use as directed if needed after insect bite Benzonatate 200 mg capsule Take 1 capsule by mouth three times daily as needed. nicotine (NICODERM) 14 mg/24 hr Apply 1 Patch as directed every 24 hours. Use for 6 weeks, then decrease to 7mg daily. terconazole (TERAZOL 7) 0.4 % vaginal cream Use 1 Applicator vaginally daily at bedtime. naratriptan (AMERGE) 2.5 mg tablet Take 1 tab at migraine onset. May repeat once in 2 hours if needed. Give max allowed per insurance. estrogens conjugated (PREMARIN) 0.3 mg tablet Take 0.3 mg by mouth. Taking 3 times per week. Prescribed by outside OB. sucralfate (CARAFATE) 1 gram tablet Take 1 tablet by mouth three times daily before meals. May dissolve 1 tab into ~ 2 tsp of water, drink as soon as dissolved. montelukast (SINGULAIR) 10 mg tablet Take 1 tablet by mouth daily at bedtime. multivitamin (TAB-A-JESSICA) tablet Take 1 tablet by mouth once daily. carBAMazepine XR (TEGRETOL XR) 100 mg 12 hr tablet Take 1 tablet by mouth twice daily. Combine with 200 mg twice daily for 300 mg twice daily dose. (Patient taking differently: Take 100 mg by mouth once daily. Combine with 200 mg twice daily for 300 mg twice daily dose. ) carBAMazepine XR (TEGRETOL XR) 200 mg 12 hr tablet Take 1 tablet by mouth twice daily. Add to 100 mg twice daily for 300 mg twice daily total dose. fremanezumab-vfrm ([employer]OVY AUTOINJECTOR) 225 mg/1.5 mL auto-injector Inject 1.5 mL subcutaneously once every month. acetaminophen 325 mg-caffeine 40 mg-butalbital 50 mg (FIORICET) per tablet Take 1 tablet by mouth every 6 hours if needed for headache. No more than 5 days per month. budesonide-formoterol (SYMBICORT) 80-4.5 mcg/actuation inhaler Inhale 2 Puffs as instructed twice daily. nicotine polacrilex (NICORETTE) 4 mg gum Take 1 Each by mouth as needed. Max of 24 pieces per day. lansoprazole (PREVACID) 30 mg capsule Take 1 capsule by mouth daily before breakfast. 1/2 hr before meal. keemmslw-vkxetuwov-ysixqicgntvbcw (CORTISPORIN) otic solution Use 3 Drops in the ears four times daily. (Patient taking differently: Use 3 Drops in the ears as needed. ) erenumab-aooe 140 mg/mL subcutaneous auto-injector (AIMOVIRabbit TV) Inject 1 mL subcutaneously once every month. loratadine-pseudoephedrine ER (LORATA-D) 10-240 mg Tb24 Take 1 tablet by mouth once daily. ipratropium 20 mcg-albuterol 100 mcg (COMBIVENT RESPIMAT) 20-100 mcg/actuation inhaler Inhale 1 Puff as instructed four times daily as needed. albuterol HFA (VENTOLIN HFA) 90 mcg/actuation inhaler Inhale 2 Puffs as instructed every 4 hours as needed. Lactobacillus acidophilus (FLORAJEN ACIDOPHILUS) 20 billion cell cap Take 1 capsule by mouth once daily. meclizine (ANTIVERT) 25 mg tab take 1/2 to 1 tablet by mouth every 6 hours if needed for dizziness promethazine (PHENERGAN) 25 mg tablet Take 1 tablet by mouth every 8 hours as needed. hydroCHLOROthiazide (HYDRODIURIL, ESIDRIX) 25 mg tablet Take 1 tablet by mouth once daily as needed (fluid retention). No current facility-administered medications for this visit. Prior Therapies Duration of Use Dose Reason for Discontinuation Analgesic Acetaminophen with codeine (Tylenol #3) Butalbital/acetaminophen/caffeine (Fioricet) Hydrocodone/Acetaminophen (Vicodin, [place]) Ketorolac (Toradol) Meloxicam (Mobic) Oxycodone/Acetaminophen (Percocet) Anti-Anxiety Diazepam (Valium) Anti-Convulsant Carbamazepine (Tegretol) Divalproex sodium (Depakote) Gabapentin (Neurontin) Lamotrigine (Lamictal) Topiramate (Topamax, Trokendi XL, Qudexy) Zonisamide (Zonegram) Anti-Depressant and Antipsychotic Amitriptyline (Elavil) Nortriptyline (Pamelor, Aventyl) Buspirone Antiemetics Ondansetron Prochlorperazine Promethazine Anti-Migraine Isometheptene/Acetaminophen/Dichloralp henazone (Midrin) Naratriptan (Amerge) Rizatriptan (Maxalt) Sumatriptan (Imitrex, Sumavel) Blood Pressure Verapamil (Verelan, Calan, Isoptin) Hydrochlorothiazide MABs Erenumab (Aimovig) Works for only 2 weeks and then wears off. Fremanezumab (Ajovy) Worked good but insurance stopped covering. GEPANTS Rimegepant (Nurtec) Muscle Relaxer Cyclobenzaprine (Flexeril) Tizanidine (Zanaflex) Sleep Aids Trazodone (Desyrel) Supplements Magnesium Other Medications Dexamethasone (Decadron) Methylprednisolone (Medrol) Prednisone Over the Counter Medications Acetaminophen/Aspirin/Caffeine (Excedrin, Goody s) Ibuprofen (Advil, Motrin) Naproxen sodium (Aleve) REVIEW OF SYSTEMS: Review of system : unchanged from the previous visit (sleep patterns, mood, energy, appetite, stress, exercising). Physical Examination: BP 137/86 Pulse 94 Wt 117.9 kg (260 lb) LMP 05/14/2015 BMI 44.63 kg/m GEN: Alert. NAD. Normal affect. Cooperative. NEUROLOGICAL: Alert and oriented. Attentive. Thought process and content unremarkable. Follows commands appropriately. Speech fluent. Stable primary gait. Quiana Del Castillo DO [facility] [place] Department of [facility] [address] [place] [address] Level of service: Est level 3 (20-29 min). Time spent 25 min on the day of service, which included preparing to see the patient, [id number] patient care, completing clinical documentation, obtaining and/or reviewing separately obtained history, performing a medically appropriate examination, counseling and educating the patient/family/caregiver and ordering medications, tests, or procedures. Medical Decision Making cc: Elliott Mahajan [address] [place], [place] [id number] documented in this encounter [facility] 12-21-2021 Miscellaneous Notes Pharmacy calls in requesting the following refill(s): Pending Prescriptions Disp Refills DICLOFENAC 1 % TOPICAL GEL 100 g 2 Sig: apply 4 grams to affected area four times a day as directed BALAJI: Yes documented in this encounter [facility] 12-03-2021 Miscellaneous Notes Called patient to reschedule missed PharmD appt for early November. Unable to reach, left message on machine. Niecy Dick PharmD, [facility] Primary Care Clinical Pharmacist Eugenia Potts [facility] documented in this encounter [facility] 11-14-2021 History of Present illness Narrative This note was created using [employer]. Subjective Sky Zamudio is a 51 year old female. Patient presents with: F/U 6 months SUBJECTIVE: Sky Zamudio is a 51 year old year old lady here today for 6 month follow up appointment for review of medical conditions. Eating less and walking more. She is not starving in between meals. Family thinks she should eat more. Tired all the time. PAST MEDICAL HISTORY Diagnosis Date Abdominal pain, periumbilic Acute gastritis without mention of hemorrhage Bipolar disorder, unspecified (HCC) Chronic rhinitis Closed fracture of navicular (scaphoid) bone of foot 12/10/2011 Contact dermatitis and other eczema, due to unspecified cause Diaphragmatic hernia without mention of obstruction or gangrene Dysmenorrhea decreased Esophageal reflux Excessive or frequent menstruation Heavy periods resolved Irregular menstrual cycle Irregular periods Migraine headache Obesity, unspecified Other specified gastritis SLEEP APNEA NOS 12/12/200708: effic 87%, no stage III, AHI 5.5, REM 20.9, supine 3, snoring 98%-rec CPAP trial Stress incontinence Unspecified asthma(493.90) Unspecified symptom associated with female genital organs Current Outpatient Medications Medication Sig [START ON 11/16/2021] zolpidem (AMBIEN) 10 mg Take 1 tablet by mouth at bedtime as needed for up to 180 days. Do not start before November 16, 2021. SUMAtriptan (IMITREX) 100 mg tablet Take 1/2 to 1 Tablet By Mouth If needed At Onset Of Migraine And REpeat On Or After 2 Hours If needed cimetidine (TAGAMET) 400 mg tablet Take 1 tablet by mouth twice daily. Cholecalciferol, Vitamin D3, 50 mcg (2,000 unit) cap Take 2 capsules by mouth once daily. ondansetron orally disintegrating (ZOFRAN ODT) 4 mg disintegrating tablet Take 1 tablet by mouth every 6 hours as needed for nausea/vomiting. cyclobenzaprine (FLEXERIL) 10 mg tablet Take 1 tablet by mouth three times daily as needed. meloxicam (MOBIC) 15 mg tablet Take 1 tablet by mouth once daily. EPINEPHrine (EPIPEN) 0.3 mg/0.3 mL auto-injector Inject subcutaneously. use as directed if needed after insect bite Benzonatate 200 mg capsule Take 1 capsule by mouth three times daily as needed. nicotine (NICODERM) 14 mg/24 hr Apply 1 Patch as directed every 24 hours. Use for 6 weeks, then decrease to 7mg daily. terconazole (TERAZOL 7) 0.4 % vaginal cream Use 1 Applicator vaginally daily at bedtime. diclofenac (VOLTAREN) 1 % topical gel apply 4 grams to affected area four times a day as directed naratriptan (AMERGE) 2.5 mg tablet Take 1 tab at migraine onset. May repeat once in 2 hours if needed. Give max allowed per insurance. estrogens conjugated (PREMARIN) 0.3 mg tablet Take 0.3 mg by mouth. Taking 3 times per week. Prescribed by outside OB. sucralfate (CARAFATE) 1 gram tablet Take 1 tablet by mouth three times daily before meals. May dissolve 1 tab into ~ 2 tsp of water, drink as soon as dissolved. montelukast (SINGULAIR) 10 mg tablet Take 1 tablet by mouth daily at bedtime. multivitamin (TAB-A-JESSICA) tablet Take 1 tablet by mouth once daily. carBAMazepine XR (TEGRETOL XR) 100 mg 12 hr tablet Take 1 tablet by mouth twice daily. Combine with 200 mg twice daily for 300 mg twice daily dose. (Patient taking differently: Take 100 mg by mouth once daily. Combine with 200 mg twice daily for 300 mg twice daily dose. ) carBAMazepine XR (TEGRETOL XR) 200 mg 12 hr tablet Take 1 tablet by mouth twice daily. Add to 100 mg twice daily for 300 mg twice daily total dose. fremanezumab-vfrm (AJOVY AUTOINJECTOR) 225 mg/1.5 mL auto-injector Inject 1.5 mL subcutaneously once every month. acetaminophen 325 mg-caffeine 40 mg-butalbital 50 mg (FIORICET) per tablet Take 1 tablet by mouth every 6 hours if needed for headache. No more than 5 days per month. budesonide-formoterol (SYMBICORT) 80-4.5 mcg/actuation inhaler Inhale 2 Puffs as instructed twice daily. nicotine polacrilex (NICORETTE) 4 mg gum Take 1 Each by mouth as needed. Max of 24 pieces per day. lansoprazole (PREVACID) 30 mg capsule Take 1 capsule by mouth daily before breakfast. 1/2 hr before meal. hwdtbuid-edzquoeqf-bcomoeuwdjqvpl (CORTISPORIN) otic solution Use 3 Drops in the ears four times daily. (Patient taking differently: Use 3 Drops in the ears as needed. ) loratadine-pseudoephedrine ER (LORATA-D) 10-240 mg Tb24 Take 1 tablet by mouth once daily. triamcinolone acetonide (NASACORT AQ) 55 mcg nasal inhaler Use 2 Sprays in the nose once daily as needed. ipratropium 20 mcg-albuterol 100 mcg (COMBIVENT RESPIMAT) 20-100 mcg/actuation inhaler Inhale 1 Puff as instructed four times daily as needed. albuterol HFA (VENTOLIN HFA) 90 mcg/actuation inhaler Inhale 2 Puffs as instructed every 4 hours as needed. Lactobacillus acidophilus (FLORAJEN ACIDOPHILUS) 20 billion cell cap Take 1 capsule by mouth once daily. meclizine (ANTIVERT) 25 mg tab take 1/2 to 1 tablet by mouth every 6 hours if needed for dizziness promethazine (PHENERGAN) 25 mg tablet Take 1 tablet by mouth every 8 hours as needed. hydroCHLOROthiazide (HYDRODIURIL, ESIDRIX) 25 mg tablet Take 1 tablet by mouth once daily as needed (fluid retention). erenumab-aooe 140 mg/mL subcutaneous auto-injector (AIMOVIG) Inject 1 mL subcutaneously once every month. (Patient not taking: Reported on 11/14/2021 ) No current facility-administered medications for this visit. Review of Systems Objective BP 112/82 Pulse 84 Wt 117.9 kg (260 lb) LMP 05/14/2015 SpO2 95% BMI 44.63 kg/m Last 5 Encounter Wt Readings: Date: Wt: 11/14/2021 117.9 kg (260 lb) 10/14/2021 123.3 kg (271 lb 12.8 oz) 07/26/2021 120.2 kg (265 lb) 05/02/2021 117.3 kg (258 lb 9.6 oz) 02/20/2021 117.7 kg (259 lb 6.4 oz) No waist measurement recorded Estimated body mass index is 44.63 kg/m as calculated from the following: Height as of 11/20/20: 162.6 cm (5' 4 ). Weight as of this encounter: 117.9 kg (260 lb). Last 5 Encounter BP Readings: Date: BP: 11/14/2021 112/82 10/14/2021 122/82 07/26/2021 135/92 05/02/2021 114/68 02/20/2021 122/80 Physical Exam Constitutional: Appearance: Normal appearance. She is obese. HENT: Head: Normocephalic. Eyes: Conjunctiva/sclera: Conjunctivae normal. Cardiovascular: Rate and Rhythm: Normal rate and regular rhythm. Heart sounds: Normal heart sounds. Pulmonary: Effort: Pulmonary effort is normal. Breath sounds: Normal breath sounds. Skin: General: Skin is warm and dry. Neurological: General: No focal deficit present. Mental Status: She is alert and oriented to person, place, and time. Psychiatric: Mood and Affect: Mood normal. Behavior: Behavior normal. Thought Content: Thought content normal. Judgment: Judgment normal. Assessment and Plan ASSESSMENT/PLAN: 1. Insomnia, unspecified type - ICD9: 780.52, ICD10: G47.00 (primary diagnosis) Continue present management. - ZOLPIDEM 10 MG TABLET 2. Strain of abdominal muscle, initial encounter - ICD9: 848.8, ICD10: S39.011A Discussed management 3. Class 3 severe obesity due to excess calories without serious comorbidity with body mass index (BMI) of 40.0 to 44.9 in adult (HCC) - ICD9: 278.01, V85.41, ICD10: E66.01, Z68.41 Weight decreasing - Behavioral intervention 4. Migraine with aura and without status migrainosus, not intractable - ICD9: 346.00, ICD10: G43.109 Continue present management. - SUMATRIPTAN 100 MG TABLET 5. Mixed hyperlipidemia - ICD9: 272.2, ICD10: E78.2 - to be determined upon return of lab results - Encouraged following a low fat, low cholesterol diet. - Discussed the benefits of regular aerobic exercise and weight loss. 6. Vitamin D deficiency - ICD9: 268.9, ICD10: E55.9 - VITAMIN D 25 HYDROXY 7. Gastroesophageal reflux disease, unspecified whether esophagitis present - ICD9: 530.81, ICD10: K21.9 Continue present management. - CIMETIDINE 400 MG TABLET 8. Dysmetabolic syndrome - ICD9: 277.7, ICD10: E88.81 Needs to keep working on diet and exercise with lifestyle changes for effective weight loss as well as prevention of DM, and control of BP and lipids. - COMP METABOLIC PANEL - HGB A1C 9. Encounter for long-term current use of medication - ICD9: V58.69, ICD10: Z79.899 - CHOLECALCIFEROL (VITAMIN D3) 50 MCG (2,000 UNIT) CAPSULE - COMP METABOLIC PANEL - CBC - HGB A1C - MAGNESIUM BLD Elliott Mahajan MD documented in this encounter [facility] 11-06-2021 Miscellaneous Notes Follow-up scheduled 11/14 Susan Wayne APRN.MIGUE Pt called and is notified of providers message and instructions. Pt voices understanding. Pt now reports that she finished the Penicillin she was on and it has moved into her chest. She is still coughing, but you can hear a wheeze now. Pt was asking for another antibiotic. Please call and advise. Radha Moore RN She has meloxicam as an active prescription. Can not take both naproxen and meloxicam. Refilled meloxicam sent in event she needs it. Can ice and rest the area. Come in for a visit if not feeling improved. Patient calling she had tripped walking up a curb and landed on her right knee and right wrist. Right knee is bruised, wrist is just sore. Patient asking for a Naproxen rx to be sent to [facility] pharmacy. Please advise documented in this encounter [facility] 11-01-2021 Miscellaneous Notes Called patient for today's scheduled phone appt but unable to reach after multiple attempts. LMOM to return PharmD call. Niecy Dick PharmD, [facility] Primary Care Clinical Pharmacist Eugenia Potts [facility] documented in this encounter [facility] 10-17-[address] Del Castillo gave last Ambien RX--she can address future refills with him at her January appointment with him. Looks like lasts several months so okay refill today. Xanax lasted since June. Okay RX Has follow up in November with me The following approved medication requests have been transmitted electronically. Signed Prescriptions Disp Refills zolpidem (AMBIEN) 10 mg 30 tablet 0 Sig: Take 1 tablet by mouth at bedtime as needed for up to 180 days. GEM Class: C-IV BALAJI: No Authorizing Provider: ELLIOTT MAHAJAN ALPRAZolam (XANAX) 0.5 mg tablet 14 tablet 0 Sig: Take 1 tablet by mouth twice daily as needed for up to 7 days. GEM Class: C-IV BALAJI: No Authorizing Provider: ELLIOTT MAHAJAN EPINEPHrine (EPIPEN) 0.3 mg/0.3 mL auto-injector 2 Each 1 Sig: Inject subcutaneously. use as directed if needed after insect bite BALAJI: No Authorizing Provider: ELLIOTT MAHAJAN Benzonatate 200 mg capsule 30 capsule 0 Sig: Take 1 capsule by mouth three times daily as needed. BALAJI: No Authorizing Provider: ELLIOTT MAHAJAN fluconazole (DIFLUCAN) 150 mg tablet 1 tablet 0 Sig: Take 1 tablet by mouth once daily for 1 day. Authorizing Provider: ELLIOTT MAHAJAN MD Pt requesting tessalon pearls for cough. see below. Last prescribed in 2019. Pt on ATB and feels she is starting with yeast infection. She is starting with itching. See below. Please advise pt. Syeda Barrett LPN VALENTE: 05/28/2021 Patient has been identified by name and date of : Yes Pending Prescriptions Disp Refills ZOLPIDEM 10 MG TABLET 30 tablet 0 Sig: Take 1 tablet by mouth at bedtime as needed for up to 180 days. GEM Class: C-IV BALAJI: No ALPRAZOLAM 0.5 MG TABLET GEM Class: C-IV BALAJI: No EPINEPHRINE 0.3 MG/0.3 ML INJECTION, AUTO-INJECTOR 2 Each 1 Sig: Inject subcutaneously. use as directed if needed after insect bite BALAJI: No RX INSTRUCTIONS: Patient aware RX will be sent to pharmacy. No need to notify patient. Michelle Owens Pss documented in this encounter [facility] 07-14-2021 Hospital Discharge instructions Patient Education 07/13/2021 22:15:01 Laceration, Hand: All Closures Hand Laceration: All Closures A laceration is a cut through the skin. Deep cuts usually require stitches. Minor cuts may be closed with surgical tape or skin adhesive. X-rays may be done if something may have entered the skin through the cut, such as broken glass. You may also be given a tetanus shot if you are not up to date on this vaccination and the object that cut you may carry tetanus. Home care Your healthcare provider may prescribe an antibiotic. This is to help prevent infection. Follow all instructions for taking this medicine. Take the medicine every day until it is gone or you are told to stop. You should not have any left over. The healthcare provider may prescribe medicines for pain. Follow instructions for taking them. Follow the healthcare provider s instructions on how to care for the cut. Keep the wound clean and dry. Don't get the wound wet until you are told it is OK to do so. If the bandage gets wet, remove it. Gently pat the wound dry with a clean cloth. Then put on a clean, dry bandage. To help prevent infection, wash your hands with soap and water before and after caring for the wound. Caring for stiches: Once you no longer need to keep the stitches dry, clean the wound daily. First, remove the bandage. Then wash the area gently with soap and warm water, or as directed by the healthcare provider. Use a wet cotton swab to loosen and remove any blood or crust that forms. After cleaning, apply a thin layer of antibiotic ointment if advised. Then put on a new bandage unless you are told not to. Caring for skin glue: Don t put apply liquid, ointment, or cream on the wound while the glue is in place. Avoid activities that cause heavy sweating. Protect the wound from sunlight. Don't scratch, rub, or pick at the adhesive film. Don't place tape directly over the film. The glue should peel off within 5 to 10 days. Caring for surgical tape: Keep the area dry. If it gets wet, blot it dry with a clean towel. Surgical tape usually falls off within 7 to 10 days. If it has not fallen off after 10 days, you can take it off yourself. Put mineral oil or petroleum jelly on a cotton ball and gently rub the tape until it is removed. Once you can get the wound wet, you may shower as usual, but don't soak the wound in water. This means no tub baths or swimming. Even with proper treatment, a wound infection may sometimes occur. Check the wound daily for signs of infection listed below. Follow-up care Follow up with your healthcare provider, or as advised. If you have stitches, be sure to return as directed to have them removed. When to seek medical advice Call your healthcare provider right away if any of these occur: Wound bleeding not controlled by direct pressure Signs of infection, including increasing pain in the wound, increasing wound redness or swelling, or pus or bad odor coming from the wound Fever of 100.4 F (38. C) o higher, or as directed by your healthcare provider Stitches come apart or fall out or surgical tape falls off before 7 days Wound edges reopen Wound changes colors Numbness or weakness in the affected hand Decreased movement of the hand [id number] [employer]. [address] [place] [id number]. All rights reserved. This information is not intended as a substitute for professional medical care. Always follow your healthcare professional's instructions. Follow Up Care 07/13/2021 21:52:46 With:ELLIOTT MAHAJAN Address: [address] [place] [phone] (1) When:2-4 days only if needed Comments:If bleeding recurs hold direct pressure over a pad of gauze for least 20 minutes and recheck. [facility] 02-06-2021 History of Present illness Narrative Radiology Service Progress Note PATIENT NAME: Sky Zamudio DATE OF SERVICE: February 06, 2021 TIME: 3:36 PM PATIENT IDENTITY VERIFICATION COMPLETED USING TWO (2) IDENTIFIERS: Name and Date of confirmed by patient verbally. FALL SCREENING: Has the patient had 2 falls in the last year or 1 fall with injury or currently using an Ambulatory Assistive Device (Walker, Cane, Wheelchair, Crutches, etc.)? No PATIENT GENDER DATA: Female. status: : No status: NO. PATIENT RELEVANT IMPLANT DATA REVIEWED: Yes RADIOLOGY DEPARTMENT: General X-ray: Exam(s) Completed: Lower Extremity X-Ray(s): Foot, Left and Wt. Bearing PERIPHERAL IV DATA: Not applicable SIGNED BY: RT Theresa(R) February 06, 2021 3:36 PM documented in this encounter [facility] 05-12-2013 History of Past i llness Narrative Problem Noted Date Resolved Date NO SHOW 05/12/2013 07/13/2013 Closed fracture of navicular (scaphoid) bone of foot 12/10/2011 07/13/2013 Acute endometritis 07/04/2010 10/10/2010 Abdominal pain, generalized 07/04/201010/2012 Excessive or frequent menstruation 05/29/2010 10/10/2010 Abdominal pain, right lower quadrant 05/29/2010 10/10/2010 Unspecified symptom associated with female genit al organs 05/29/2010 07/13/2013 Dyspareunia 05/29/2010 10/10/2010 Urge incontinence 05/29/2010 07/13/2013 Urgency of urination 05/29/2010 07/13/2013 Abdominal pain, periumbilic 04/04/201010/2012 Tibialis tendinitis 06/14/2008 07/26/2008 Other enthesopathy of ankle and tarsus 8 07/26/2008 Sprain of ankle, unspecified site 10/05/2007 07/13/2013 Contusion of foot 06/25/2007 07/13/2013 Disturbance of skin sensation 06/17/2007 Contact dermatitis and other eczema, due to unspecified cause 07/13/2013 documented as of this encounter (statuses as of 10/31/2021) [facility] History of Past illness Narrative* Problem Noted Date Resolved Date NO SHOW 05/12/2013 07/13/2013 Closed fracture of navicular (scaphoid) bone of foot 12/10/2011 07/13/2013 Acute endometritis 07/04/2010 10/10/2010 Abdominal pain, generalized 07/04/201010/2012 Excessive or frequent menstruation 05/29/2010 10/10/2010 Abdominal pain, right lower quadrant 05/29/2010 10/10/2010 Unspecified symptom associated with female genit al organs 05/29/2010 07/13/2013 Dyspareunia 05/29/2010 10/10/2010 Urge incontinence 05/29/2010 07/13/2013 Urgency of urination 05/29/2010 07/13/2013 Abdominal pain, periumbilic 04/04/201010/2012 Tibialis tendinitis 06/14/2008 07/26/2008 Other enthesopathy of ankle and tarsus 8 07/26/2008 Sprain of ankle, unspecified site 10/05/2007 07/13/2013 Contusion of foot 06/25/2007 07/13/2013 Disturbance of skin sensation 06/17/2007 Contact dermatitis and other eczema, due to unspecified cause 07/13/2013 documented as of this encounter (statuses as of 11/01/2021) [facility] History of Past illness Narrative* Problem Noted Date Resolved Date NO SHOW 05/12/2013 07/13/2013 Closed fracture of navicular (scaphoid) bone of foot 12/10/2011 07/13/2013 Acute endometritis 07/04/2010 10/10/2010 Abdominal pain, generalized 07/04/201010/2012 Excessive or frequent menstruation 05/29/2010 10/10/2010 Abdominal pain, right lower quadrant 05/29/2010 10/10/2010 Unspecified symptom associated with female genit al organs 05/29/2010 07/13/2013 Dyspareunia 05/29/2010 10/10/2010 Urge incontinence 05/29/2010 07/13/2013 Urgency of urination 05/29/2010 07/13/2013 Abdominal pain, periumbilic 04/04/201010/2012 Tibialis tendinitis 06/14/2008 07/26/2008 Other enthesopathy of ankle and tarsus 8 07/26/2008 Sprain of ankle, unspecified site 10/05/2007 07/13/2013 Contusion of foot 06/25/2007 07/13/2013 Disturbance of skin sensation 06/17/2007 Contact dermatitis and other eczema, due to unspecified cause 07/13/2013 documented as of this encounter (statuses as of 11/06/2021) [facility] History of Past illness Narrative* Problem Noted Date Resolved Date NO SHOW 05/12/2013 07/13/2013 Closed fracture of navicular (scaphoid) bone of foot 12/10/2011 07/13/2013 Acute endometritis 07/04/2010 10/10/2010 Abdominal pain, generalized 07/04/201010/2012 Excessive or frequent menstruation 05/29/2010 10/10/2010 Abdominal pain, right lower quadrant 05/29/2010 10/10/2010 Unspecified symptom associated with female genit al organs 05/29/2010 07/13/2013 Dyspareunia 05/29/2010 10/10/2010 Urge incontinence 05/29/2010 07/13/2013 Urgency of urination 05/29/2010 07/13/2013 Abdominal pain, periumbilic 04/04/201010/2012 Tibialis tendinitis 06/14/2008 07/26/2008 Other enthesopathy of ankle and tarsus 8 07/26/2008 Sprain of ankle, unspecified site 10/05/2007 07/13/2013 Contusion of foot 06/25/2007 07/13/2013 Disturbance of skin sensation 06/17/2007 Contact dermatitis and other eczema, due to unspecified cause 07/13/2013 documented as of this encounter (statuses as of 11/06/2021) [facility] History of Past illness Narrative* Problem Noted Date Resolved Date NO SHOW 05/12/2013 07/13/2013 Closed fracture of navicular (scaphoid) bone of foot 12/10/2011 07/13/2013 Acute endometritis 07/04/2010 10/10/2010 Abdominal pain, generalized 07/04/201010/2012 Excessive or frequent menstruation 05/29/2010 10/10/2010 Abdominal pain, right lower quadrant 05/29/2010 10/10/2010 Unspecified symptom associated with female genit al organs 05/29/2010 07/13/2013 Dyspareunia 05/29/2010 10/10/2010 Urge incontinence 05/29/2010 07/13/2013 Urgency of urination 05/29/2010 07/13/2013 Abdominal pain, periumbilic 04/04/201010/2012 Tibialis tendinitis 06/14/2008 07/26/2008 Other enthesopathy of ankle and tarsus 8 07/26/2008 Sprain of ankle, unspecified site 10/05/2007 07/13/2013 Contusion of foot 06/25/2007 07/13/2013 Disturbance of skin sensation 06/17/2007 Contact dermatitis and other eczema, due to unspecified cause 07/13/2013 documented as of this encounter (statuses as of 11/12/2021) [facility]10-02-2013 History of Past illness Narrative* Problem Noted Date Resolved Date NO SHOW 05/12/2013 07/13/2013 Closed fracture of navicular (scaphoid) bone of foot 12/10/2011 07/13/2013 Acute endometritis 07/04/2010 10/10/2010 Abdominal pain, generalized 07/04/201010/2012 Excessive or frequent menstruation 05/29/2010 10/10/2010 Abdominal pain, right lower quadrant 05/29/2010 10/10/2010 Unspecified symptom associated with female genit al organs 05/29/2010 07/13/2013 Dyspareunia 05/29/2010 10/10/2010 Urge incontinence 05/29/2010 07/13/2013 Urgency of urination 05/29/2010 07/13/2013 Abdominal pain, periumbilic 04/04/201010/2012 Tibialis tendinitis 06/14/2008 07/26/2008 Other enthesopathy of ankle and tarsus 8 07/26/2008 Sprain of ankle, unspecified site 10/05/2007 07/13/2013 Contusion of foot 06/25/2007 07/13/2013 Disturbance of skin sensation 06/17/2007 Contact dermatitis and other eczema, due to unspecified cause 07/13/2013 documented as of this encounter (statuses as of 12/03/2021) [facility]2013 History of Past illness Narrative* Problem Noted Date Resolved Date NO SHOW 05/12/2013 07/13/2013 Closed fracture of navicular (scaphoid) bone of foot 12/10/2011 07/13/2013 Acute endometritis 07/04/2010 10/10/2010 Abdominal pain, generalized 07/04/201010/2012 Excessive or frequent menstruation 05/29/2010 10/10/2010 Abdominal pain, right lower quadrant 05/29/2010 10/10/2010 Unspecified symptom associated with female genit al organs 05/29/2010 07/13/2013 Dyspareunia 05/29/2010 10/10/2010 Urge incontinence 05/29/2010 07/13/2013 Urgency of urination 05/29/2010 07/13/2013 Abdominal pain, periumbilic 04/04/201010/2012 Tibialis tendinitis 06/14/2008 07/26/2008 Other enthesopathy of ankle and tarsus 8 07/26/2008 Sprain of ankle, unspecified site 10/05/2007 07/13/2013 Contusion of foot 06/25/2007 07/13/2013 Disturbance of skin sensation 06/17/2007 Contact dermatitis and other eczema, due to unspecified cause 07/13/2013 documented as of this encounter (statuses as of 12/21/2021) [facility] History of Past illness Narrative* Problem Noted Date Resolved Date NO SHOW 05/12/2013 07/13/2013 Closed fracture of navicular (scaphoid) bone of foot 12/10/2011 07/13/2013 Acute endometritis 07/04/2010 10/10/2010 Abdominal pain, generalized 07/04/201010/2012 Excessive or frequent menstruation 05/29/2010 10/10/2010 Abdominal pain, right lower quadrant 05/29/2010 10/10/2010 Unspecified symptom associated with female genit al organs 05/29/2010 07/13/2013 Dyspareunia 05/29/2010 10/10/2010 Urge incontinence 05/29/2010 07/13/2013 Urgency of urination 05/29/2010 07/13/2013 Abdominal pain, periumbilic 04/04/201010/2012 Tibialis tendinitis 06/14/2008 07/26/2008 Other enthesopathy of ankle and tarsus 8 07/26/2008 Sprain of ankle, unspecified site 10/05/2007 07/13/2013 Contusion of foot 06/25/2007 07/13/2013 Disturbance of skin sensation 06/17/2007 Contact dermatitis and other eczema, due to unspecified cause 07/13/2013 documented as of this encounter (statuses as of 01/17/2022) [facility] History of Past illness Narrative* Problem Noted Date Resolved Date NO SHOW 05/12/2013 07/13/2013 Closed fracture of navicular (scaphoid) bone of foot 12/10/2011 07/13/2013 Acute endometritis 07/04/2010 10/10/2010 Abdominal pain, generalized 07/04/201010/2012 Excessive or frequent menstruation 05/29/2010 10/10/2010 Abdominal pain, right lower quadrant 05/29/2010 10/10/2010 Unspecified symptom associated with female genit al organs 05/29/2010 07/13/2013 Dyspareunia 05/29/2010 10/10/2010 Urge incontinence 05/29/2010 07/13/2013 Urgency of urination 05/29/2010 07/13/2013 Abdominal pain, periumbilic 04/04/201010/2012 Tibialis tendinitis 06/14/2008 07/26/2008 Other enthesopathy of ankle and tarsus 8 07/26/2008 Sprain of ankle, unspecified site 10/05/2007 07/13/2013 Contusion of foot 06/25/2007 07/13/2013 Disturbance of skin sensation 06/17/2007 Contact dermatitis and other eczema, due to unspecified cause 07/13/2013 documented as of this encounter (statuses as of 01/17/2022) [facility] History of Past illness Narrative* Problem Noted Date Resolved Date NO SHOW 05/12/2013 07/13/2013 Closed fracture of navicular (scaphoid) bone of foot 12/10/2011 07/13/2013 Acute endometritis 07/04/2010 10/10/2010 Abdominal pain, generalized 07/04/201010/2012 Excessive or frequent menstruation 05/29/2010 10/10/2010 Abdominal pain, right lower quadrant 05/29/2010 10/10/2010 Unspecified symptom associated with female genit al organs 05/29/2010 07/13/2013 Dyspareunia 05/29/2010 10/10/2010 Urge incontinence 05/29/2010 07/13/2013 Urgency of urination 05/29/2010 07/13/2013 Abdominal pain, periumbilic 04/04/201010/2012 Tibialis tendinitis 06/14/2008 07/26/2008 Other enthesopathy of ankle and tarsus 8 07/26/2008 Sprain of ankle, unspecified site 10/05/2007 07/13/2013 Contusion of foot 06/25/2007 07/13/2013 Disturbance of skin sensation 06/17/2007 Contact dermatitis and other eczema, due to unspecified cause 07/13/2013 documented as of this encounter (statuses as of 02/02/2022) [facility] History of Past illness Narrative* Problem Noted Date Resolved Date NO SHOW 05/12/2013 07/13/2013 Closed fracture of navicular (scaphoid) bone of foot 12/10/2011 07/13/2013 Acute endometritis 07/04/2010 10/10/2010 Abdominal pain, generalized 07/04/201010/2012 Excessive or frequent menstruation 05/29/2010 10/10/2010 Abdominal pain, right lower quadrant 05/29/2010 10/10/2010 Unspecified symptom associated with female genit al organs 05/29/2010 07/13/2013 Dyspareunia 05/29/2010 10/10/2010 Urge incontinence 05/29/2010 07/13/2013 Urgency of urination 05/29/2010 07/13/2013 Abdominal pain, periumbilic 04/04/201010/2012 Tibialis tendinitis 06/14/2008 07/26/2008 Other enthesopathy of ankle and tarsus 8 07/26/2008 Sprain of ankle, unspecified site 10/05/2007 07/13/2013 Contusion of foot 06/25/2007 07/13/2013 Disturbance of skin sensation 06/17/2007 Contact dermatitis and other eczema, due to unspecified cause 07/13/2013 documented as of this encounter (statuses as of 02/11/2022) [facility] History of Past illness Narrative* Problem Noted Date Resolved Date NO SHOW 05/12/2013 07/13/2013 Closed fracture of navicular (scaphoid) bone of foot 12/10/2011 07/13/2013 Acute endometritis 07/04/2010 10/10/2010 Abdominal pain, generalized 07/04/201010/2012 Excessive or frequent menstruation 05/29/2010 10/10/2010 Abdominal pain, right lower quadrant 05/29/2010 10/10/2010 Unspecified symptom associated with female genit al organs 05/29/2010 07/13/2013 Dyspareunia 05/29/2010 10/10/2010 Urge incontinence 05/29/2010 07/13/2013 Urgency of urination 05/29/2010 07/13/2013 Abdominal pain, periumbilic 04/04/201010/2012 Tibialis tendinitis 06/14/2008 07/26/2008 Other enthesopathy of ankle and tarsus 8 07/26/2008 Sprain of ankle, unspecified site 10/05/2007 07/13/2013 Contusion of foot 06/25/2007 07/13/2013 Disturbance of skin sensation 06/17/2007 Contact dermatitis and other eczema, due to unspecified cause 07/13/2013 documented as of this encounter (statuses as of 02/14/2022) [facility] History of Past illness Narrative* Problem Noted Date Resolved Date NO SHOW 05/12/2013 07/13/2013 Closed fracture of navicular (scaphoid) bone of foot 12/10/2011 07/13/2013 Acute endometritis 07/04/2010 10/10/2010 Abdominal pain, generalized 07/04/201010/2012 Excessive or frequent menstruation 05/29/2010 10/10/2010 Abdominal pain, right lower quadrant 05/29/2010 10/10/2010 Unspecified symptom associated with female genit al organs 05/29/2010 07/13/2013 Dyspareunia 05/29/2010 10/10/2010 Urge incontinence 05/29/2010 07/13/2013 Urgency of urination 05/29/2010 07/13/2013 Abdominal pain, periumbilic 04/04/201010/2012 Tibialis tendinitis 06/14/2008 07/26/2008 Other enthesopathy of ankle and tarsus 8 07/26/2008 Sprain of ankle, unspecified site 10/05/2007 07/13/2013 Contusion of foot 06/25/2007 07/13/2013 Disturbance of skin sensation 06/17/2007 Contact dermatitis and other eczema, due to unspecified cause 07/13/2013 documented as of this encounter (statuses as of 02/16/2022) [facility] History of Past illness Narrative* Problem Noted Date Resolved Date NO SHOW 05/12/2013 07/13/2013 Closed fracture of navicular (scaphoid) bone of foot 12/10/2011 07/13/2013 Acute endometritis 07/04/2010 10/10/2010 Abdominal pain, generalized 07/04/201010/2012 Excessive or frequent menstruation 05/29/2010 10/10/2010 Abdominal pain, right lower quadrant 05/29/2010 10/10/2010 Unspecified symptom associated with female genit al organs 05/29/2010 07/13/2013 Dyspareunia 05/29/2010 10/10/2010 Urge incontinence 05/29/2010 07/13/2013 Urgency of urination 05/29/2010 07/13/2013 Abdominal pain, periumbilic 04/04/201010/2012 Tibialis tendinitis 06/14/2008 07/26/2008 Other enthesopathy of ankle and tarsus 8 07/26/2008 Sprain of ankle, unspecified site 10/05/2007 07/13/2013 Contusion of foot 06/25/2007 07/13/2013 Disturbance of skin sensation 06/17/2007 Contact dermatitis and other eczema, due to unspecified cause 07/13/2013 documented as of this encounter (statuses as of 03/05/2022) [facility] History of Past illness Narrative* Problem Noted Date Resolved Date NO SHOW 05/12/2013 07/13/2013 Closed fracture of navicular (scaphoid) bone of foot 12/10/2011 07/13/2013 Acute endometritis 07/04/2010 10/10/2010 Abdominal pain, generalized 07/04/201010/2012 Excessive or frequent menstruation 05/29/2010 10/10/2010 Abdominal pain, right lower quadrant 05/29/2010 10/10/2010 Unspecified symptom associated with female genit al organs 05/29/2010 07/13/2013 Dyspareunia 05/29/2010 10/10/2010 Urge incontinence 05/29/2010 07/13/2013 Urgency of urination 05/29/2010 07/13/2013 Abdominal pain, periumbilic 04/04/201010/2012 Tibialis tendinitis 06/14/2008 07/26/2008 Other enthesopathy of ankle and tarsus 8 07/26/2008 Sprain of ankle, unspecified site 10/05/2007 07/13/2013 Contusion of foot 06/25/2007 07/13/2013 Disturbance of skin sensation 06/17/2007 Contact dermatitis and other eczema, due to unspecified cause 07/13/2013 documented as of this encounter (statuses as of 05/17/2022) [facility] History of Past illness Narrative* Problem Noted Date Resolved Date NO SHOW 05/12/2013 07/13/2013 Closed fracture of navicular (scaphoid) bone of foot 12/10/2011 07/13/2013 Acute endometritis 07/04/2010 10/10/2010 Abdominal pain, generalized 07/04/201010/2012 Excessive or frequent menstruation 05/29/2010 10/10/2010 Abdominal pain, right lower quadrant 05/29/2010 10/10/2010 Unspecified symptom associated with female genit al organs 05/29/2010 07/13/2013 Dyspareunia 05/29/2010 10/10/2010 Urge incontinence 05/29/2010 07/13/2013 Urgency of urination 05/29/2010 07/13/2013 Abdominal pain, periumbilic 04/04/201010/2012 Tibialis tendinitis 06/14/2008 07/26/2008 Other enthesopathy of ankle and tarsus 8 07/26/2008 Sprain of ankle, unspecified site 10/05/2007 07/13/2013 Contusion of foot 06/25/2007 07/13/2013 Disturbance of skin sensation 06/17/2007 Contact dermatitis and other eczema, due to unspecified cause 07/13/2013 documented as of this encounter (statuses as of 08/14/2022) [facility] History of Past illness Narrative* Problem Noted Date Resolved Date NO SHOW 05/12/2013 07/13/2013 Closed fracture of navicular (scaphoid) bone of foot 12/10/2011 07/13/2013 Acute endometritis 07/04/2010 10/10/2010 Abdominal pain, generalized 07/04/201010/2012 Excessive or frequent menstruation 05/29/2010 10/10/2010 Abdominal pain, right lower quadrant 05/29/2010 10/10/2010 Unspecified symptom associated with female genit al organs 05/29/2010 07/13/2013 Dyspareunia 05/29/2010 10/10/2010 Urge incontinence 05/29/2010 07/13/2013 Urgency of urination 05/29/2010 07/13/2013 Abdominal pain, periumbilic 04/04/201010/2012 Tibialis tendinitis 06/14/2008 07/26/2008 Other enthesopathy of ankle and tarsus 8 07/26/2008 Sprain of ankle, unspecified site 10/05/2007 07/13/2013 Contusion of foot 06/25/2007 07/13/2013 Disturbance of skin sensation 06/17/2007 Contact dermatitis and other eczema, due to unspecified cause 07/13/2013 documented as of this encounter (statuses as of 08/17/2022) [facility] History of Past illness Narrative* Problem Noted Date Resolved Date NO SHOW 05/12/2013 07/13/2013 Closed fracture of navicular (scaphoid) bone of foot 12/10/2011 07/13/2013 Acute endometritis 07/04/2010 10/10/2010 Abdominal pain, generalized 07/04/201010/2012 Excessive or frequent menstruation 05/29/2010 10/10/2010 Abdominal pain, right lower quadrant 05/29/2010 10/10/2010 Unspecified symptom associated with female genit al organs 05/29/2010 07/13/2013 Dyspareunia 05/29/2010 10/10/2010 Urge incontinence 05/29/2010 07/13/2013 Urgency of urination 05/29/2010 07/13/2013 Abdominal pain, periumbilic 04/04/201010/2012 Tibialis tendinitis 06/14/2008 07/26/2008 Other enthesopathy of ankle and tarsus 8 07/26/2008 Sprain of ankle, unspecified site 10/05/2007 07/13/2013 Contusion of foot 06/25/2007 07/13/2013 Disturbance of skin sensation 06/17/2007 Contact dermatitis and other eczema, due to unspecified cause 07/13/2013 documented as of this encounter (statuses as of 08/17/2022) [facility] History of Past illness Narrative* Problem Noted Date Resolved Date NO SHOW 05/12/2013 07/13/2013 Closed fracture of navicular (scaphoid) bone of foot 12/10/2011 07/13/2013 Acute endometritis 07/04/2010 10/10/2010 Abdominal pain, generalized 07/04/201010/2012 Excessive or frequent menstruation 05/29/2010 10/10/2010 Abdominal pain, right lower quadrant 05/29/2010 10/10/2010 Unspecified symptom associated with female genit al organs 05/29/2010 07/13/2013 Dyspareunia 05/29/2010 10/10/2010 Urge incontinence 05/29/2010 07/13/2013 Urgency of urination 05/29/2010 07/13/2013 Abdominal pain, periumbilic 04/04/201010/2012 Tibialis tendinitis 06/14/2008 07/26/2008 Other enthesopathy of ankle and tarsus 8 07/26/2008 Sprain of ankle, unspecified site 10/05/2007 07/13/2013 Contusion of foot 06/25/2007 07/13/2013 Disturbance of skin sensation 06/17/2007 Contact dermatitis and other eczema, due to unspecified cause 07/13/2013 documented as of this encounter (statuses as of 08/20/2022) [facility] History of Past illness Narrative* Problem Noted Date Resolved Date NO SHOW 05/12/2013 07/13/2013 Closed fracture of navicular (scaphoid) bone of foot 12/10/2011 07/13/2013 Acute endometritis 07/04/2010 10/10/2010 Abdominal pain, generalized 07/04/201010/2012 Excessive or frequent menstruation 05/29/2010 10/10/2010 Abdominal pain, right lower quadrant 05/29/2010 10/10/2010 Unspecified symptom associated with female genit al organs 05/29/2010 07/13/2013 Dyspareunia 05/29/2010 10/10/2010 Urge incontinence 05/29/2010 07/13/2013 Urgency of urination 05/29/2010 07/13/2013 Abdominal pain, periumbilic 04/04/201010/2012 Tibialis tendinitis 06/14/2008 07/26/2008 Other enthesopathy of ankle and tarsus 8 07/26/2008 Sprain of ankle, unspecified site 10/05/2007 07/13/2013 Contusion of foot 06/25/2007 07/13/2013 Disturbance of skin sensation 06/17/2007 Contact dermatitis and other eczema, due to unspecified cause 07/13/2013 documented as of this encounter (statuses as of 08/26/2022) [facility] History of Past illness Narrative* Problem Noted Date Resolved Date NO SHOW 05/12/2013 07/13/2013 Closed fracture of navicular (scaphoid) bone of foot 12/10/2011 07/13/2013 Acute endometritis 07/04/2010 10/10/2010 Abdominal pain, generalized 07/04/201010/2012 Excessive or frequent menstruation 05/29/2010 10/10/2010 Abdominal pain, right lower quadrant 05/29/2010 10/10/2010 Unspecified symptom associated with female genit al organs 05/29/2010 07/13/2013 Dyspareunia 05/29/2010 10/10/2010 Urge incontinence 05/29/2010 07/13/2013 Urgency of urination 05/29/2010 07/13/2013 Abdominal pain, periumbilic 04/04/201010/2012 Tibialis tendinitis 06/14/2008 07/26/2008 Other enthesopathy of ankle and tarsus 8 07/26/2008 Sprain of ankle, unspecified site 10/05/2007 07/13/2013 Contusion of foot 06/25/2007 07/13/2013 Disturbance of skin sensation 06/17/2007 Contact dermatitis and other eczema, due to unspecified cause 07/13/2013 documented as of this encounter (statuses as of 08/27/2022) [facility] History of Past illness Narrative* Problem Noted Date Resolved Date NO SHOW 05/12/2013 07/13/2013 Closed fracture of navicular (scaphoid) bone of foot 12/10/2011 07/13/2013 Acute endometritis 07/04/2010 10/10/2010 Abdominal pain, generalized 07/04/201010/2012 Excessive or frequent menstruation 05/29/2010 10/10/2010 Abdominal pain, right lower quadrant 05/29/2010 10/10/2010 Unspecified symptom associated with female genit al organs 05/29/2010 07/13/2013 Dyspareunia 05/29/2010 10/10/2010 Urge incontinence 05/29/2010 07/13/2013 Urgency of urination 05/29/2010 07/13/2013 Abdominal pain, periumbilic 04/04/201010/2012 Tibialis tendinitis 06/14/2008 07/26/2008 Other enthesopathy of ankle and tarsus 8 07/26/2008 Sprain of ankle, unspecified site 10/05/2007 07/13/2013 Contusion of foot 06/25/2007 07/13/2013 Disturbance of skin sensation 06/17/2007 Contact dermatitis and other eczema, due to unspecified cause 07/13/2013 documented as of this encounter (statuses as of 08/28/2022) [facility] History of Past illness Narrative* Problem Noted Date Resolved Date NO SHOW 05/12/2013 07/13/2013 Closed fracture of navicular (scaphoid) bone of foot 12/10/2011 07/13/2013 Acute endometritis 07/04/2010 10/10/2010 Abdominal pain, generalized 07/04/201010/2012 Excessive or frequent menstruation 05/29/2010 10/10/2010 Abdominal pain, right lower quadrant 05/29/2010 10/10/2010 Unspecified symptom associated with female genit al organs 05/29/2010 07/13/2013 Dyspareunia 05/29/2010 10/10/2010 Urge incontinence 05/29/2010 07/13/2013 Urgency of urination 05/29/2010 07/13/2013 Abdominal pain, periumbilic 04/04/201010/2012 Tibialis tendinitis 06/14/2008 07/26/2008 Other enthesopathy of ankle and tarsus 8 07/26/2008 Sprain of ankle, unspecified site 10/05/2007 07/13/2013 Contusion of foot 06/25/2007 07/13/2013 Disturbance of skin sensation 06/17/2007 Contact dermatitis and other eczema, due to unspecified cause 07/13/2013 documented as of this encounter (statuses as of 09/03/2022) [facility] History of Past illness Narrative* Problem Noted Date Resolved Date NO SHOW 05/12/2013 07/13/2013 Closed fracture of navicular (scaphoid) bone of foot 12/10/2011 07/13/2013 Acute endometritis 07/04/2010 10/10/2010 Abdominal pain, generalized 07/04/201010/2012 Excessive or frequent menstruation 05/29/2010 10/10/2010 Abdominal pain, right lower quadrant 05/29/2010 10/10/2010 Unspecified symptom associated with female genit al organs 05/29/2010 07/13/2013 Dyspareunia 05/29/2010 10/10/2010 Urge incontinence 05/29/2010 07/13/2013 Urgency of urination 05/29/2010 07/13/2013 Abdominal pain, periumbilic 04/04/201010/2012 Tibialis tendinitis 06/14/2008 07/26/2008 Other enthesopathy of ankle and tarsus 8 07/26/2008 Sprain of ankle, unspecified site 10/05/2007 07/13/2013 Contusion of foot 06/25/2007 07/13/2013 Disturbance of skin sensation 06/17/2007 Contact dermatitis and other eczema, due to unspecified cause 07/13/2013 documented as of this encounter (statuses as of 09/03/2022) [facility] History of Past illness Narrative* Problem Noted Date Resolved Date NO SHOW 05/12/2013 07/13/2013 Closed fracture of navicular (scaphoid) bone of foot 12/10/2011 07/13/2013 Acute endometritis 07/04/2010 10/10/2010 Abdominal pain, generalized 07/04/201010/2012 Excessive or frequent menstruation 05/29/2010 10/10/2010 Abdominal pain, right lower quadrant 05/29/2010 10/10/2010 Unspecified symptom associated with female genit al organs 05/29/2010 07/13/2013 Dyspareunia 05/29/2010 10/10/2010 Urge incontinence 05/29/2010 07/13/2013 Urgency of urination 05/29/2010 07/13/2013 Abdominal pain, periumbilic 04/04/201010/2012 Tibialis tendinitis 06/14/2008 07/26/2008 Other enthesopathy of ankle and tarsus 8 07/26/2008 Sprain of ankle, unspecified site 10/05/2007 07/13/2013 Contusion of foot 06/25/2007 07/13/2013 Disturbance of skin sensation 06/17/2007 Contact dermatitis and other eczema, due to unspecified cause 07/13/2013 documented as of this encounter (statuses as of 09/03/2022) [facility] History of Past illness Narrative* Problem Noted Date Resolved Date NO SHOW 05/12/2013 07/13/2013 Closed fracture of navicular (scaphoid) bone of foot 12/10/2011 07/13/2013 Acute endometritis 07/04/2010 10/10/2010 Abdominal pain, generalized 07/04/201010/2012 Excessive or frequent menstruation 05/29/2010 10/10/2010 Abdominal pain, right lower quadrant 05/29/2010 10/10/2010 Unspecified symptom associated with female genit al organs 05/29/2010 07/13/2013 Dyspareunia 05/29/2010 10/10/2010 Urge incontinence 05/29/2010 07/13/2013 Urgency of urination 05/29/2010 07/13/2013 Abdominal pain, periumbilic 04/04/201010/2012 Tibialis tendinitis 06/14/2008 07/26/2008 Other enthesopathy of ankle and tarsus 8 07/26/2008 Sprain of ankle, unspecified site 10/05/2007 07/13/2013 Contusion of foot 06/25/2007 07/13/2013 Disturbance of skin sensation 06/17/2007 Contact dermatitis and other eczema, due to unspecified cause 07/13/2013 documented as of this encounter (statuses as of 09/16/2022) [facility] History of Past illness Narrative* Problem Noted Date Resolved Date NO SHOW 05/12/2013 07/13/2013 Closed fracture of navicular (scaphoid) bone of foot 12/10/2011 07/13/2013 Acute endometritis 07/04/2010 10/10/2010 Abdominal pain, generalized 07/04/201010/2012 Excessive or frequent menstruation 05/29/2010 10/10/2010 Abdominal pain, right lower quadrant 05/29/2010 10/10/2010 Unspecified symptom associated with female genit al organs 05/29/2010 07/13/2013 Dyspareunia 05/29/2010 10/10/2010 Urge incontinence 05/29/2010 07/13/2013 Urgency of urination 05/29/2010 07/13/2013 Abdominal pain, periumbilic 04/04/201010/2012 Tibialis tendinitis 06/14/2008 07/26/2008 Other enthesopathy of ankle and tarsus 8 07/26/2008 Sprain of ankle, unspecified site 10/05/2007 07/13/2013 Contusion of foot 06/25/2007 07/13/2013 Disturbance of skin sensation 06/17/2007 Contact dermatitis and other eczema, due to unspecified cause 07/13/2013 documented as of this encounter (statuses as of 09/23/2022) [facility] History of Past illness Narrative* Problem Noted Date Resolved Date NO SHOW 05/12/2013 07/13/2013 Closed fracture of navicular (scaphoid) bone of foot 12/10/2011 07/13/2013 Acute endometritis 07/04/2010 10/10/2010 Abdominal pain, generalized 07/04/201010/2012 Excessive or frequent menstruation 05/29/2010 10/10/2010 Abdominal pain, right lower quadrant 05/29/2010 10/10/2010 Unspecified symptom associated with female genit al organs 05/29/2010 07/13/2013 Dyspareunia 05/29/2010 10/10/2010 Urge incontinence 05/29/2010 07/13/2013 Urgency of urination 05/29/2010 07/13/2013 Abdominal pain, periumbilic 04/04/201010/2012 Tibialis tendinitis 06/14/2008 07/26/2008 Other enthesopathy of ankle and tarsus 8 07/26/2008 Sprain of ankle, unspecified site 10/05/2007 07/13/2013 Contusion of foot 06/25/2007 07/13/2013 Disturbance of skin sensation 06/17/2007 Contact dermatitis and other eczema, due to unspecified cause 07/13/2013 documented as of this encounter (statuses as of 09/25/2022) [facility]10-02-2013 History of Past illness Narrative* Problem Noted Date Resolved Date NO SHOW 05/12/2013 07/13/2013 Closed fracture of navicular (scaphoid) bone of foot 12/10/2011 07/13/2013 Acute endometritis 07/04/2010 10/10/2010 Abdominal pain, generalized 07/04/201010/2012 Excessive or frequent menstruation 05/29/2010 10/10/2010 Abdominal pain, right lower quadrant 05/29/2010 10/10/2010 Unspecified symptom associated with female genit al organs 05/29/2010 07/13/2013 Dyspareunia 05/29/2010 10/10/2010 Urge incontinence 05/29/2010 07/13/2013 Urgency of urination 05/29/2010 07/13/2013 Abdominal pain, periumbilic 04/04/201010/2012 Tibialis tendinitis 06/14/2008 07/26/2008 Other enthesopathy of ankle and tarsus 8 07/26/2008 Sprain of ankle, unspecified site 10/05/2007 07/13/2013 Contusion of foot 06/25/2007 07/13/2013 Disturbance of skin sensation 06/17/2007 Contact dermatitis and other eczema, due to unspecified cause 07/13/2013 documented as of this encounter (statuses as of 10/04/2022) [facility]2013 History of Past illness Narrative* Problem Noted Date Resolved Date NO SHOW 05/12/2013 07/13/2013 Closed fracture of navicular (scaphoid) bone of foot 12/10/2011 07/13/2013 Acute endometritis 07/04/2010 10/10/2010 Abdominal pain, generalized 07/04/201010/2012 Excessive or frequent menstruation 05/29/2010 10/10/2010 Abdominal pain, right lower quadrant 05/29/2010 10/10/2010 Unspecified symptom associated with female genit al organs 05/29/2010 07/13/2013 Dyspareunia 05/29/2010 10/10/2010 Urge incontinence 05/29/2010 07/13/2013 Urgency of urination 05/29/2010 07/13/2013 Abdominal pain, periumbilic 04/04/201010/2012 Tibialis tendinitis 06/14/2008 07/26/2008 Other enthesopathy of ankle and tarsus 8 07/26/2008 Sprain of ankle, unspecified site 10/05/2007 07/13/2013 Contusion of foot 06/25/2007 07/13/2013 Disturbance of skin sensation 06/17/2007 Contact dermatitis and other eczema, due to unspecified cause 07/13/2013 documented as of this encounter (statuses as of 10/07/2022) [facility] History of Past illness Narrative* Problem Noted Date Resolved Date NO SHOW 05/12/2013 07/13/2013 Closed fracture of navicular (scaphoid) bone of foot 12/10/2011 07/13/2013 Acute endometritis 07/04/2010 10/10/2010 Abdominal pain, generalized 07/04/201010/2012 Excessive or frequent menstruation 05/29/2010 10/10/2010 Abdominal pain, right lower quadrant 05/29/2010 10/10/2010 Unspecified symptom associated with female genit al organs 05/29/2010 07/13/2013 Dyspareunia 05/29/2010 10/10/2010 Urge incontinence 05/29/2010 07/13/2013 Urgency of urination 05/29/2010 07/13/2013 Abdominal pain, periumbilic 04/04/201010/2012 Tibialis tendinitis 06/14/2008 07/26/2008 Other enthesopathy of ankle and tarsus 8 07/26/2008 Sprain of ankle, unspecified site 10/05/2007 07/13/2013 Contusion of foot 06/25/2007 07/13/2013 Disturbance of skin sensation 06/17/2007 Contact dermatitis and other eczema, due to unspecified cause 07/13/2013 documented as of this encounter (statuses as of 11/05/2022) [facility] History of Past illness Narrative* Problem Noted Date Resolved Date NO SHOW 05/12/2013 07/13/2013 Closed fracture of navicular (scaphoid) bone of foot 12/10/2011 07/13/2013 Acute endometritis 07/04/2010 10/10/2010 Abdominal pain, generalized 07/04/201010/2012 Excessive or frequent menstruation 05/29/2010 10/10/2010 Abdominal pain, right lower quadrant 05/29/2010 10/10/2010 Unspecified symptom associated with female genit al organs 05/29/2010 07/13/2013 Dyspareunia 05/29/2010 10/10/2010 Urge incontinence 05/29/2010 07/13/2013 Urgency of urination 05/29/2010 07/13/2013 Abdominal pain, periumbilic 04/04/201010/2012 Tibialis tendinitis 06/14/2008 07/26/2008 Other enthesopathy of ankle and tarsus 8 07/26/2008 Sprain of ankle, unspecified site 10/05/2007 07/13/2013 Contusion of foot 06/25/2007 07/13/2013 Disturbance of skin sensation 06/17/2007 Contact dermatitis and other eczema, due to unspecified cause 07/13/2013 documented as of this encounter (statuses as of 11/05/2022) [facility] History of Past illness Narrative* Problem Noted Date Resolved Date NO SHOW 05/12/2013 07/13/2013 Closed fracture of navicular (scaphoid) bone of foot 12/10/2011 07/13/2013 Acute endometritis 07/04/2010 10/10/2010 Abdominal pain, generalized 07/04/201010/2012 Excessive or frequent menstruation 05/29/2010 10/10/2010 Abdominal pain, right lower quadrant 05/29/2010 10/10/2010 Unspecified symptom associated with female genit al organs 05/29/2010 07/13/2013 Dyspareunia 05/29/2010 10/10/2010 Urge incontinence 05/29/2010 07/13/2013 Urgency of urination 05/29/2010 07/13/2013 Abdominal pain, periumbilic 04/04/201010/2012 Tibialis tendinitis 06/14/2008 07/26/2008 Other enthesopathy of ankle and tarsus 8 07/26/2008 Sprain of ankle, unspecified site 10/05/2007 07/13/2013 Contusion of foot 06/25/2007 07/13/2013 Disturbance of skin sensation 06/17/2007 Contact dermatitis and other eczema, due to unspecified cause 07/13/2013 documented as of this encounter (statuses as of 11/12/2022) [facility] History of Past illness Narrative* Problem Noted Date Resolved Date NO SHOW 05/12/2013 07/13/2013 Closed fracture of navicular (scaphoid) bone of foot 12/10/2011 07/13/2013 Acute endometritis 07/04/2010 10/10/2010 Abdominal pain, generalized 07/04/201010/2012 Excessive or frequent menstruation 05/29/2010 10/10/2010 Abdominal pain, right lower quadrant 05/29/2010 10/10/2010 Unspecified symptom associated with female genit al organs 05/29/2010 07/13/2013 Dyspareunia 05/29/2010 10/10/2010 Urge incontinence 05/29/2010 07/13/2013 Urgency of urination 05/29/2010 07/13/2013 Abdominal pain, periumbilic 04/04/201010/2012 Tibialis tendinitis 06/14/2008 07/26/2008 Other enthesopathy of ankle and tarsus 8 07/26/2008 Sprain of ankle, unspecified site 10/05/2007 07/13/2013 Contusion of foot 06/25/2007 07/13/2013 Disturbance of skin sensation 06/17/2007 Contact dermatitis and other eczema, due to unspecified cause 07/13/2013 documented as of this encounter (statuses as of 11/19/2022) [facility] History of Past illness Narrative* Problem Noted Date Resolved Date NO SHOW 05/12/2013 07/13/2013 Closed fracture of navicular (scaphoid) bone of foot 12/10/2011 07/13/2013 Acute endometritis 07/04/2010 10/10/2010 Abdominal pain, generalized 07/04/201010/2012 Excessive or frequent menstruation 05/29/2010 10/10/2010 Abdominal pain, right lower quadrant 05/29/2010 10/10/2010 Unspecified symptom associated with female genit al organs 05/29/2010 07/13/2013 Dyspareunia 05/29/2010 10/10/2010 Urge incontinence 05/29/2010 07/13/2013 Urgency of urination 05/29/2010 07/13/2013 Abdominal pain, periumbilic 04/04/201010/2012 Tibialis tendinitis 06/14/2008 07/26/2008 Other enthesopathy of ankle and tarsus 8 07/26/2008 Sprain of ankle, unspecified site 10/05/2007 07/13/2013 Contusion of foot 06/25/2007 07/13/2013 Disturbance of skin sensation 06/17/2007 Contact dermatitis and other eczema, due to unspecified cause 07/13/2013 documented as of this encounter (statuses as of 11/19/2022) [facility] History of Past illness Narrative* Problem Noted Date Resolved Date NO SHOW 05/12/2013 07/13/2013 Closed fracture of navicular (scaphoid) bone of foot 12/10/2011 07/13/2013 Acute endometritis 07/04/2010 10/10/2010 Abdominal pain, generalized 07/04/201010/2012 Excessive or frequent menstruation 05/29/2010 10/10/2010 Abdominal pain, right lower quadrant 05/29/2010 10/10/2010 Unspecified symptom associated with female genit al organs 05/29/2010 07/13/2013 Dyspareunia 05/29/2010 10/10/2010 Urge incontinence 05/29/2010 07/13/2013 Urgency of urination 05/29/2010 07/13/2013 Abdominal pain, periumbilic 04/04/201010/2012 Tibialis tendinitis 06/14/2008 07/26/2008 Other enthesopathy of ankle and tarsus 8 07/26/2008 Sprain of ankle, unspecified site 10/05/2007 07/13/2013 Contusion of foot 06/25/2007 07/13/2013 Disturbance of skin sensation 06/17/2007 Contact dermatitis and other eczema, due to unspecified cause 07/13/2013 documented as of this encounter (statuses as of 12/04/2022) [facility] History of Past illness Narrative* Problem Noted Date Resolved Date NO SHOW 05/12/2013 07/13/2013 Closed fracture of navicular (scaphoid) bone of foot 12/10/2011 07/13/2013 Acute endometritis 07/04/2010 10/10/2010 Abdominal pain, generalized 07/04/201010/2012 Excessive or frequent menstruation 05/29/2010 10/10/2010 Abdominal pain, right lower quadrant 05/29/2010 10/10/2010 Unspecified symptom associated with female genit al organs 05/29/2010 07/13/2013 Dyspareunia 05/29/2010 10/10/2010 Urge incontinence 05/29/2010 07/13/2013 Urgency of urination 05/29/2010 07/13/2013 Abdominal pain, periumbilic 04/04/201010/2012 Tibialis tendinitis 06/14/2008 07/26/2008 Other enthesopathy of ankle and tarsus 8 07/26/2008 Sprain of ankle, unspecified site 10/05/2007 07/13/2013 Contusion of foot 06/25/2007 07/13/2013 Disturbance of skin sensation 06/17/2007 Contact dermatitis and other eczema, due to unspecified cause 07/13/2013 documented as of this encounter (statuses as of 12/05/2022) [facility] History of Past illness Narrative* Problem Noted Date Resolved Date NO SHOW 05/12/2013 07/13/2013 Closed fracture of navicular (scaphoid) bone of foot 12/10/2011 07/13/2013 Acute endometritis 07/04/2010 10/10/2010 Abdominal pain, generalized 07/04/201010/2012 Excessive or frequent menstruation 05/29/2010 10/10/2010 Abdominal pain, right lower quadrant 05/29/2010 10/10/2010 Unspecified symptom associated with female genit al organs 05/29/2010 07/13/2013 Dyspareunia 05/29/2010 10/10/2010 Urge incontinence 05/29/2010 07/13/2013 Urgency of urination 05/29/2010 07/13/2013 Abdominal pain, periumbilic 04/04/201010/2012 Tibialis tendinitis 06/14/2008 07/26/2008 Other enthesopathy of ankle and tarsus 8 07/26/2008 Sprain of ankle, unspecified site 10/05/2007 07/13/2013 Contusion of foot 06/25/2007 07/13/2013 Disturbance of skin sensation 06/17/2007 Contact dermatitis and other eczema, due to unspecified cause 07/13/2013 documented as of this encounter (statuses as of 12/13/2022) [facility] History of Past illness Narrative* Problem Noted Date Resolved Date NO SHOW 05/12/2013 07/13/2013 Closed fracture of navicular (scaphoid) bone of foot 12/10/2011 07/13/2013 Acute endometritis 07/04/2010 10/10/2010 Abdominal pain, generalized 07/04/201010/2012 Excessive or frequent menstruation 05/29/2010 10/10/2010 Abdominal pain, right lower quadrant 05/29/2010 10/10/2010 Unspecified symptom associated with female genit al organs 05/29/2010 07/13/2013 Dyspareunia 05/29/2010 10/10/2010 Urge incontinence 05/29/2010 07/13/2013 Urgency of urination 05/29/2010 07/13/2013 Abdominal pain, periumbilic 04/04/201010/2012 Tibialis tendinitis 06/14/2008 07/26/2008 Other enthesopathy of ankle and tarsus 8 07/26/2008 Sprain of ankle, unspecified site 10/05/2007 07/13/2013 Contusion of foot 06/25/2007 07/13/2013 Disturbance of skin sensation 06/17/2007 Contact dermatitis and other eczema, due to unspecified cause 07/13/2013 documented as of this encounter (statuses as of 12/14/2022) [facility] History of Past illness Narrative* Problem Noted Date Resolved Date NO SHOW 05/12/2013 07/13/2013 Closed fracture of navicular (scaphoid) bone of foot 12/10/2011 07/13/2013 Acute endometritis 07/04/2010 10/10/2010 Abdominal pain, generalized 07/04/201010/2012 Excessive or frequent menstruation 05/29/2010 10/10/2010 Abdominal pain, right lower quadrant 05/29/2010 10/10/2010 Unspecified symptom associated with female genit al organs 05/29/2010 07/13/2013 Dyspareunia 05/29/2010 10/10/2010 Urge incontinence 05/29/2010 07/13/2013 Urgency of urination 05/29/2010 07/13/2013 Abdominal pain, periumbilic 04/04/201010/2012 Tibialis tendinitis 06/14/2008 07/26/2008 Other enthesopathy of ankle and tarsus 8 07/26/2008 Sprain of ankle, unspecified site 10/05/2007 07/13/2013 Contusion of foot 06/25/2007 07/13/2013 Disturbance of skin sensation 06/17/2007 Contact dermatitis and other eczema, due to unspecified cause 07/13/2013 documented as of this encounter (statuses as of 12/17/2022) [facility] History of Past illness Narrative* Problem Noted Date Resolved Date NO SHOW 05/12/2013 07/13/2013 Closed fracture of navicular (scaphoid) bone of foot 12/10/2011 07/13/2013 Acute endometritis 07/04/2010 10/10/2010 Abdominal pain, generalized 07/04/201010/2012 Excessive or frequent menstruation 05/29/2010 10/10/2010 Abdominal pain, right lower quadrant 05/29/2010 10/10/2010 Unspecified symptom associated with female genit al organs 05/29/2010 07/13/2013 Dyspareunia 05/29/2010 10/10/2010 Urge incontinence 05/29/2010 07/13/2013 Urgency of urination 05/29/2010 07/13/2013 Abdominal pain, periumbilic 04/04/201010/2012 Tibialis tendinitis 06/14/2008 07/26/2008 Other enthesopathy of ankle and tarsus 8 07/26/2008 Sprain of ankle, unspecified site 10/05/2007 07/13/2013 Contusion of foot 06/25/2007 07/13/2013 Disturbance of skin sensation 06/17/2007 Contact dermatitis and other eczema, due to unspecified cause 07/13/2013 documented as of this encounter (statuses as of 12/18/2022) [facility] History of Past illness Narrative* Problem Noted Date Resolved Date NO SHOW 05/12/2013 07/13/2013 Closed fracture of navicular (scaphoid) bone of foot 12/10/2011 07/13/2013 Acute endometritis 07/04/2010 10/10/2010 Abdominal pain, generalized 07/04/201010/2012 Excessive or frequent menstruation 05/29/2010 10/10/2010 Abdominal pain, right lower quadrant 05/29/2010 10/10/2010 Unspecified symptom associated with female genit al organs 05/29/2010 07/13/2013 Dyspareunia 05/29/2010 10/10/2010 Urge incontinence 05/29/2010 07/13/2013 Urgency of urination 05/29/2010 07/13/2013 Abdominal pain, periumbilic 04/04/201010/2012 Tibialis tendinitis 06/14/2008 07/26/2008 Other enthesopathy of ankle and tarsus 8 07/26/2008 Sprain of ankle, unspecified site 10/05/2007 07/13/2013 Contusion of foot 06/25/2007 07/13/2013 Disturbance of skin sensation 06/17/2007 Contact dermatitis and other eczema, due to unspecified cause 07/13/2013 documented as of this encounter (statuses as of 12/18/2022) [facility] History of Past illness Narrative* Problem Noted Date Resolved Date NO SHOW 05/12/2013 07/13/2013 Closed fracture of navicular (scaphoid) bone of foot 12/10/2011 07/13/2013 Acute endometritis 07/04/2010 10/10/2010 Abdominal pain, generalized 07/04/201010/2012 Excessive or frequent menstruation 05/29/2010 10/10/2010 Abdominal pain, right lower quadrant 05/29/2010 10/10/2010 Unspecified symptom associated with female genit al organs 05/29/2010 07/13/2013 Dyspareunia 05/29/2010 10/10/2010 Urge incontinence 05/29/2010 07/13/2013 Urgency of urination 05/29/2010 07/13/2013 Abdominal pain, periumbilic 04/04/201010/2012 Tibialis tendinitis 06/14/2008 07/26/2008 Other enthesopathy of ankle and tarsus 8 07/26/2008 Sprain of ankle, unspecified site 10/05/2007 07/13/2013 Contusion of foot 06/25/2007 07/13/2013 Disturbance of skin sensation 06/17/2007 Contact dermatitis and other eczema, due to unspecified cause 07/13/2013 documented as of this encounter (statuses as of 12/19/2022) [facility] History of Past illness Narrative* Problem Noted Date Resolved Date NO SHOW 05/12/2013 07/13/2013 Closed fracture of navicular (scaphoid) bone of foot 12/10/2011 07/13/2013 Acute endometritis 07/04/2010 10/10/2010 Abdominal pain, generalized 07/04/201010/2012 Excessive or frequent menstruation 05/29/2010 10/10/2010 Abdominal pain, right lower quadrant 05/29/2010 10/10/2010 Unspecified symptom associated with female genit al organs 05/29/2010 07/13/2013 Dyspareunia 05/29/2010 10/10/2010 Urge incontinence 05/29/2010 07/13/2013 Urgency of urination 05/29/2010 07/13/2013 Abdominal pain, periumbilic 04/04/201010/2012 Tibialis tendinitis 06/14/2008 07/26/2008 Other enthesopathy of ankle and tarsus 8 07/26/2008 Sprain of ankle, unspecified site 10/05/2007 07/13/2013 Contusion of foot 06/25/2007 07/13/2013 Disturbance of skin sensation 06/17/2007 Contact dermatitis and other eczema, due to unspecified cause 07/13/2013 documented as of this encounter (statuses as of 12/19/2022) [facility] History of Past illness Narrative* Problem Noted Date Resolved Date NO SHOW 05/12/2013 07/13/2013 Closed fracture of navicular (scaphoid) bone of foot 12/10/2011 07/13/2013 Acute endometritis 07/04/2010 10/10/2010 Abdominal pain, generalized 07/04/201010/2012 Excessive or frequent menstruation 05/29/2010 10/10/2010 Abdominal pain, right lower quadrant 05/29/2010 10/10/2010 Unspecified symptom associated with female genit al organs 05/29/2010 07/13/2013 Dyspareunia 05/29/2010 10/10/2010 Urge incontinence 05/29/2010 07/13/2013 Urgency of urination 05/29/2010 07/13/2013 Abdominal pain, periumbilic 04/04/201010/2012 Tibialis tendinitis 06/14/2008 07/26/2008 Other enthesopathy of ankle and tarsus 8 07/26/2008 Sprain of ankle, unspecified site 10/05/2007 07/13/2013 Contusion of foot 06/25/2007 07/13/2013 Disturbance of skin sensation 06/17/2007 Contact dermatitis and other eczema, due to unspecified cause 07/13/2013 documented as of this encounter (statuses as of 12/20/2022) [facility] History of Past illness Narrative* Problem Noted Date Resolved Date NO SHOW 05/12/2013 07/13/2013 Closed fracture of navicular (scaphoid) bone of foot 12/10/2011 07/13/2013 Acute endometritis 07/04/2010 10/10/2010 Abdominal pain, generalized 07/04/201010/2012 Excessive or frequent menstruation 05/29/2010 10/10/2010 Abdominal pain, right lower quadrant 05/29/2010 10/10/2010 Unspecified symptom associated with female genit al organs 05/29/2010 07/13/2013 Dyspareunia 05/29/2010 10/10/2010 Urge incontinence 05/29/2010 07/13/2013 Urgency of urination 05/29/2010 07/13/2013 Abdominal pain, periumbilic 04/04/201010/2012 Tibialis tendinitis 06/14/2008 07/26/2008 Other enthesopathy of ankle and tarsus 8 07/26/2008 Sprain of ankle, unspecified site 10/05/2007 07/13/2013 Contusion of foot 06/25/2007 07/13/2013 Disturbance of skin sensation 06/17/2007 Contact dermatitis and other eczema, due to unspecified cause 07/13/2013 documented as of this encounter (statuses as of 12/23/2022) [facility] History of Past illness Narrative* Problem Noted Date Resolved Date NO SHOW 05/12/2013 07/13/2013 Closed fracture of navicular (scaphoid) bone of foot 12/10/2011 07/13/2013 Acute endometritis 07/04/2010 10/10/2010 Abdominal pain, generalized 07/04/201010/2012 Excessive or frequent menstruation 05/29/2010 10/10/2010 Abdominal pain, right lower quadrant 05/29/2010 10/10/2010 Unspecified symptom associated with female genit al organs 05/29/2010 07/13/2013 Dyspareunia 05/29/2010 10/10/2010 Urge incontinence 05/29/2010 07/13/2013 Urgency of urination 05/29/2010 07/13/2013 Abdominal pain, periumbilic 04/04/201010/2012 Tibialis tendinitis 06/14/2008 07/26/2008 Other enthesopathy of ankle and tarsus 8 07/26/2008 Sprain of ankle, unspecified site 10/05/2007 07/13/2013 Contusion of foot 06/25/2007 07/13/2013 Disturbance of skin sensation 06/17/2007 Contact dermatitis and other eczema, due to unspecified cause 07/13/2013 documented as of this encounter (statuses as of 12/25/2022) [facility] History of Past illness Narrative* Problem Noted Date Resolved Date NO SHOW 05/12/2013 07/13/2013 Closed fracture of navicular (scaphoid) bone of foot 12/10/2011 07/13/2013 Acute endometritis 07/04/2010 10/10/2010 Abdominal pain, generalized 07/04/201010/2012 Excessive or frequent menstruation 05/29/2010 10/10/2010 Abdominal pain, right lower quadrant 05/29/2010 10/10/2010 Unspecified symptom associated with female genit al organs 05/29/2010 07/13/2013 Dyspareunia 05/29/2010 10/10/2010 Urge incontinence 05/29/2010 07/13/2013 Urgency of urination 05/29/2010 07/13/2013 Abdominal pain, periumbilic 04/04/201010/2012 Tibialis tendinitis 06/14/2008 07/26/2008 Other enthesopathy of ankle and tarsus 8 07/26/2008 Sprain of ankle, unspecified site 10/05/2007 07/13/2013 Contusion of foot 06/25/2007 07/13/2013 Disturbance of skin sensation 06/17/2007 Contact dermatitis and other eczema, due to unspecified cause 07/13/2013 documented as of this encounter (statuses as of 01/14/2023) [facility] History of Past illness Narrative* Problem Noted Date Resolved Date NO SHOW 05/12/2013 07/13/2013 Closed fracture of navicular (scaphoid) bone of foot 12/10/2011 07/13/2013 Acute endometritis 07/04/2010 10/10/2010 Abdominal pain, generalized 07/04/201010/2012 Excessive or frequent menstruation 05/29/2010 10/10/2010 Abdominal pain, right lower quadrant 05/29/2010 10/10/2010 Unspecified symptom associated with female genit al organs 05/29/2010 07/13/2013 Dyspareunia 05/29/2010 10/10/2010 Urge incontinence 05/29/2010 07/13/2013 Urgency of urination 05/29/2010 07/13/2013 Abdominal pain, periumbilic 04/04/201010/2012 Tibialis tendinitis 06/14/2008 07/26/2008 Other enthesopathy of ankle and tarsus 8 07/26/2008 Sprain of ankle, unspecified site 10/05/2007 07/13/2013 Contusion of foot 06/25/2007 07/13/2013 Disturbance of skin sensation 06/17/2007 Contact dermatitis and other eczema, due to unspecified cause 07/13/2013 documented as of this encounter (statuses as of 01/14/2023) [facility] History of Past illness Narrative* Problem Noted Date Resolved Date NO SHOW 05/12/2013 07/13/2013 Closed fracture of navicular (scaphoid) bone of foot 12/10/2011 07/13/2013 Acute endometritis 07/04/2010 10/10/2010 Abdominal pain, generalized 07/04/201010/2012 Excessive or frequent menstruation 05/29/2010 10/10/2010 Abdominal pain, right lower quadrant 05/29/2010 10/10/2010 Unspecified symptom associated with female genit al organs 05/29/2010 07/13/2013 Dyspareunia 05/29/2010 10/10/2010 Urge incontinence 05/29/2010 07/13/2013 Urgency of urination 05/29/2010 07/13/2013 Abdominal pain, periumbilic 04/04/201010/2012 Tibialis tendinitis 06/14/2008 07/26/2008 Other enthesopathy of ankle and tarsus 8 07/26/2008 Sprain of ankle, unspecified site 10/05/2007 07/13/2013 Contusion of foot 06/25/2007 07/13/2013 Disturbance of skin sensation 06/17/2007 Contact dermatitis and other eczema, due to unspecified cause 07/13/2013 documented as of this encounter (statuses as of 01/20/2023) [facility] History of Past illness Narrative* Problem Noted Date Resolved Date NO SHOW 05/12/2013 07/13/2013 Closed fracture of navicular (scaphoid) bone of foot 12/10/2011 07/13/2013 Acute endometritis 07/04/2010 10/10/2010 Abdominal pain, generalized 07/04/201010/2012 Excessive or frequent menstruation 05/29/2010 10/10/2010 Abdominal pain, right lower quadrant 05/29/2010 10/10/2010 Unspecified symptom associated with female genit al organs 05/29/2010 07/13/2013 Dyspareunia 05/29/2010 10/10/2010 Urge incontinence 05/29/2010 07/13/2013 Urgency of urination 05/29/2010 07/13/2013 Abdominal pain, periumbilic 04/04/201010/2012 Tibialis tendinitis 06/14/2008 07/26/2008 Other enthesopathy of ankle and tarsus 8 07/26/2008 Sprain of ankle, unspecified site 10/05/2007 07/13/2013 Contusion of foot 06/25/2007 07/13/2013 Disturbance of skin sensation 06/17/2007 Contact dermatitis and other eczema, due to unspecified cause 07/13/2013 documented as of this encounter (statuses as of 01/31/2023) [facility] History of Past illness Narrative* Problem Noted Date Resolved Date NO SHOW 05/12/2013 07/13/2013 Closed fracture of navicular (scaphoid) bone of foot 12/10/2011 07/13/2013 Acute endometritis 07/04/2010 10/10/2010 Abdominal pain, generalized 07/04/201010/2012 Excessive or frequent menstruation 05/29/2010 10/10/2010 Abdominal pain, right lower quadrant 05/29/2010 10/10/2010 Unspecified symptom associated with female genit al organs 05/29/2010 07/13/2013 Dyspareunia 05/29/2010 10/10/2010 Urge incontinence 05/29/2010 07/13/2013 Urgency of urination 05/29/2010 07/13/2013 Abdominal pain, periumbilic 04/04/201010/2012 Tibialis tendinitis 06/14/2008 07/26/2008 Other enthesopathy of ankle and tarsus 8 07/26/2008 Sprain of ankle, unspecified site 10/05/2007 07/13/2013 Contusion of foot 06/25/2007 07/13/2013 Disturbance of skin sensation 06/17/2007 Contact dermatitis and other eczema, due to unspecified cause 07/13/2013 documented as of this encounter (statuses as of 02/07/2023) [facility]10-02-2013 History of Past illness Narrative* Problem Noted Date Diagnosed Date Resolved Date NO SHOW 05/12/2013 07/13/2013 Closed fracture of navicular (scaphoid) bone of foot 12/10/2011 07/13/2013 Acute endometritis 07/04/2010 1 Abdominal pain, generalized 07/04/2010 07/13/2013 Excessive or frequent menstruation 05/29/2010 10/10/2010 Abdominal pain, right lower quadrant 05/29/2010 10/10/2010 Unspecified symptom associat ed with female genital organs 05/29/2010 07/13/2013 Dyspareunia 05/29/2010 10/10/2010 Urge incontinence 05/29/2010 07/13/2013 Urgency of urination 05/29/2010 013 Abdominal pain, periumbilic 04/04/2010 07/13/2013 Tibialis tendinitis 06/14/2008 07/26/20 08 Other enthesopathy of ankle and tarsus 06/14/2008 07/26/2008 Sprain of ankle, unspecified site 10/05/2007 07/13/2013 Contusion of foot 06/25/2007 07/13/2013 Disturbance of skin sensation 06/17/2007 07/13/2013 Contact dermatitis and other eczema, due to unspecified cause 07/13/2013 documented as of this encounter (statuses as of 02/17/2023) [facility] History of Past illness Narrative* Problem Noted Date Diagnosed Date Resolved Date NO SHOW 05/12/2013 07/13/2013 Closed fracture of navicular (scaphoid) bone of foot 12/10/2011 07/13/2013 Acute endometritis 07/04/2010 1 Abdominal pain, generalized 07/04/2010 07/13/2013 Excessive or frequent menstruation 05/29/2010 10/10/2010 Abdominal pain, right lower quadrant 05/29/2010 10/10/2010 Unspecified symptom associat ed with female genital organs 05/29/2010 07/13/2013 Dyspareunia 05/29/2010 10/10/2010 Urge incontinence 05/29/2010 07/13/2013 Urgency of urination 05/29/2010 013 Abdominal pain, periumbilic 04/04/2010 07/13/2013 Tibialis tendinitis 06/14/2008 07/26/20 08 Other enthesopathy of ankle and tarsus 06/14/2008 07/26/2008 Sprain of ankle, unspecified site 10/05/2007 07/13/2013 Contusion of foot 06/25/2007 07/13/2013 Disturbance of skin sensation 06/17/2007 07/13/2013 Contact dermatitis and other eczema, due to unspecified cause 07/13/2013 documented as of this encounter (statuses as of 02/26/2023) [facility] History of Past illness Narrative* Problem Noted Date Diagnosed Date Resolved Date NO SHOW 05/12/2013 07/13/2013 Closed fracture of navicular (scaphoid) bone of foot 12/10/2011 07/13/2013 Acute endometritis 07/04/2010 1 Abdominal pain, generalized 07/04/2010 07/13/2013 Excessive or frequent menstruation 05/29/2010 10/10/2010 Abdominal pain, right lower quadrant 05/29/2010 10/10/2010 Unspecified symptom associat ed with female genital organs 05/29/2010 07/13/2013 Dyspareunia 05/29/2010 10/10/2010 Urge incontinence 05/29/2010 07/13/2013 Urgency of urination 05/29/2010 013 Abdominal pain, periumbilic 04/04/2010 07/13/2013 Tibialis tendinitis 06/14/2008 07/26/20 08 Other enthesopathy of ankle and tarsus 06/14/2008 07/26/2008 Sprain of ankle, unspecified site 10/05/2007 07/13/2013 Contusion of foot 06/25/2007 07/13/2013 Disturbance of skin sensation 06/17/2007 07/13/2013 Contact dermatitis and other eczema, due to unspecified cause 07/13/2013 documented as of this encounter (statuses as of 02/27/2023) [facility] History of Past illness Narrative* Problem Noted Date Diagnosed Date Resolved Date NO SHOW 05/12/2013 07/13/2013 Closed fracture of navicular (scaphoid) bone of foot 12/10/2011 07/13/2013 Acute endometritis 07/04/2010 1 Abdominal pain, generalized 07/04/2010 07/13/2013 Excessive or frequent menstruation 05/29/2010 10/10/2010 Abdominal pain, right lower quadrant 05/29/2010 10/10/2010 Unspecified symptom associat ed with female genital organs 05/29/2010 07/13/2013 Dyspareunia 05/29/2010 10/10/2010 Urge incontinence 05/29/2010 07/13/2013 Urgency of urination 05/29/2010 013 Abdominal pain, periumbilic 04/04/2010 07/13/2013 Tibialis tendinitis 06/14/2008 07/26/20 08 Other enthesopathy of ankle and tarsus 06/14/2008 07/26/2008 Sprain of ankle, unspecified site 10/05/2007 07/13/2013 Contusion of foot 06/25/2007 07/13/2013 Disturbance of skin sensation 06/17/2007 07/13/2013 Contact dermatitis and other eczema, due to unspecified cause 07/13/2013 documented as of this encounter (statuses as of 03/02/2023) [facility] History of Past illness Narrative* Problem Noted Date Diagnosed Date Resolved Date NO SHOW 05/12/2013 07/13/2013 Closed fracture of navicular (scaphoid) bone of foot 12/10/2011 07/13/2013 Acute endometritis 07/04/2010 1 Abdominal pain, generalized 07/04/2010 07/13/2013 Excessive or frequent menstruation 05/29/2010 10/10/2010 Abdominal pain, right lower quadrant 05/29/2010 10/10/2010 Unspecified symptom associat ed with female genital organs 05/29/2010 07/13/2013 Dyspareunia 05/29/2010 10/10/2010 Urge incontinence 05/29/2010 07/13/2013 Urgency of urination 05/29/2010 013 Abdominal pain, periumbilic 04/04/2010 07/13/2013 Tibialis tendinitis 06/14/2008 07/26/20 08 Other enthesopathy of ankle and tarsus 06/14/2008 07/26/2008 Sprain of ankle, unspecified site 10/05/2007 07/13/2013 Contusion of foot 06/25/2007 07/13/2013 Disturbance of skin sensation 06/17/2007 07/13/2013 Contact dermatitis and other eczema, due to unspecified cause 07/13/2013 documented as of this encounter (statuses as of 03/09/2023) [facility] History of Past illness Narrative* Problem Noted Date Diagnosed Date Resolved Date NO SHOW 05/12/2013 07/13/2013 Closed fracture of navicular (scaphoid) bone of foot 12/10/2011 07/13/2013 Acute endometritis 07/04/2010 1 Abdominal pain, generalized 07/04/2010 07/13/2013 Excessive or frequent menstruation 05/29/2010 10/10/2010 Abdominal pain, right lower quadrant 05/29/2010 10/10/2010 Unspecified symptom associat ed with female genital organs 05/29/2010 07/13/2013 Dyspareunia 05/29/2010 10/10/2010 Urge incontinence 05/29/2010 07/13/2013 Urgency of urination 05/29/2010 013 Abdominal pain, periumbilic 04/04/2010 07/13/2013 Tibialis tendinitis 06/14/2008 07/26/20 08 Other enthesopathy of ankle and tarsus 06/14/2008 07/26/2008 Sprain of ankle, unspecified site 10/05/2007 07/13/2013 Contusion of foot 06/25/2007 07/13/2013 Disturbance of skin sensation 06/17/2007 07/13/2013 Contact dermatitis and other eczema, due to unspecified cause 07/13/2013 documented as of this encounter (statuses as of 03/11/2023) [facility] History of Past illness Narrative* Problem Noted Date Diagnosed Date Resolved Date NO SHOW 05/12/2013 07/13/2013 Closed fracture of navicular (scaphoid) bone of foot 12/10/2011 07/13/2013 Acute endometritis 07/04/2010 1 Abdominal pain, generalized 07/04/2010 07/13/2013 Excessive or frequent menstruation 05/29/2010 10/10/2010 Abdominal pain, right lower quadrant 05/29/2010 10/10/2010 Unspecified symptom associat ed with female genital organs 05/29/2010 07/13/2013 Dyspareunia 05/29/2010 10/10/2010 Urge incontinence 05/29/2010 07/13/2013 Urgency of urination 05/29/2010 013 Abdominal pain, periumbilic 04/04/2010 07/13/2013 Tibialis tendinitis 06/14/2008 07/26/20 08 Other enthesopathy of ankle and tarsus 06/14/2008 07/26/2008 Sprain of ankle, unspecified site 10/05/2007 07/13/2013 Contusion of foot 06/25/2007 07/13/2013 Disturbance of skin sensation 06/17/2007 07/13/2013 Contact dermatitis and other eczema, due to unspecified cause 07/13/2013 documented as of this encounter (statuses as of 03/12/2023) [facility] History of Past illness Narrative* Problem Noted Date Diagnosed Date Resolved Date NO SHOW 05/12/2013 07/13/2013 Closed fracture of navicular (scaphoid) bone of foot 12/10/2011 07/13/2013 Acute endometritis 07/04/2010 1 Abdominal pain, generalized 07/04/2010 07/13/2013 Excessive or frequent menstruation 05/29/2010 10/10/2010 Abdominal pain, right lower quadrant 05/29/2010 10/10/2010 Unspecified symptom associat ed with female genital organs 05/29/2010 07/13/2013 Dyspareunia 05/29/2010 10/10/2010 Urge incontinence 05/29/2010 07/13/2013 Urgency of urination 05/29/2010 013 Abdominal pain, periumbilic 04/04/2010 07/13/2013 Tibialis tendinitis 06/14/2008 07/26/20 08 Other enthesopathy of ankle and tarsus 06/14/2008 07/26/2008 Sprain of ankle, unspecified site 10/05/2007 07/13/2013 Contusion of foot 06/25/2007 07/13/2013 Disturbance of skin sensation 06/17/2007 07/13/2013 Contact dermatitis and other eczema, due to unspecified cause 07/13/2013 documented as of this encounter (statuses as of 03/21/2023) [facility] History of Past illness Narrative* Problem Noted Date Diagnosed Date Resolved Date NO SHOW 05/12/2013 07/13/2013 Closed fracture of navicular (scaphoid) bone of foot 12/10/2011 07/13/2013 Acute endometritis 07/04/2010 1 Abdominal pain, generalized 07/04/2010 07/13/2013 Excessive or frequent menstruation 05/29/2010 10/10/2010 Abdominal pain, right lower quadrant 05/29/2010 10/10/2010 Unspecified symptom associat ed with female genital organs 05/29/2010 07/13/2013 Dyspareunia 05/29/2010 10/10/2010 Urge incontinence 05/29/2010 07/13/2013 Urgency of urination 05/29/2010 013 Abdominal pain, periumbilic 04/04/2010 07/13/2013 Tibialis tendinitis 06/14/2008 07/26/20 08 Other enthesopathy of ankle and tarsus 06/14/2008 07/26/2008 Sprain of ankle, unspecified site 10/05/2007 07/13/2013 Contusion of foot 06/25/2007 07/13/2013 Disturbance of skin sensation 06/17/2007 07/13/2013 Contact dermatitis and other eczema, due to unspecified cause 07/13/2013 documented as of this encounter (statuses as of 04/01/2023) [facility] History of Past illness Narrative* Problem Noted Date Diagnosed Date Resolved Date NO SHOW 05/12/2013 07/13/2013 Closed fracture of navicular (scaphoid) bone of foot 12/10/2011 07/13/2013 Acute endometritis 07/04/2010 1 Abdominal pain, generalized 07/04/2010 07/13/2013 Excessive or frequent menstruation 05/29/2010 10/10/2010 Abdominal pain, right lower quadrant 05/29/2010 10/10/2010 Unspecified symptom associat ed with female genital organs 05/29/2010 07/13/2013 Dyspareunia 05/29/2010 10/10/2010 Urge incontinence 05/29/2010 07/13/2013 Urgency of urination 05/29/2010 013 Abdominal pain, periumbilic 04/04/2010 07/13/2013 Tibialis tendinitis 06/14/2008 07/26/20 08 Other enthesopathy of ankle and tarsus 06/14/2008 07/26/2008 Sprain of ankle, unspecified site 10/05/2007 07/13/2013 Contusion of foot 06/25/2007 07/13/2013 Disturbance of skin sensation 06/17/2007 07/13/2013 Contact dermatitis and other eczema, due to unspecified cause 07/13/2013 documented as of this encounter (statuses as of 04/11/2023) [facility] History of Past illness Narrative* Problem Noted Date Diagnosed Date Resolved Date NO SHOW 05/12/2013 07/13/2013 Closed fracture of navicular (scaphoid) bone of foot 12/10/2011 07/13/2013 Acute endometritis 07/04/2010 1 Abdominal pain, generalized 07/04/2010 07/13/2013 Excessive or frequent menstruation 05/29/2010 10/10/2010 Abdominal pain, right lower quadrant 05/29/2010 10/10/2010 Unspecified symptom associat ed with female genital organs 05/29/2010 07/13/2013 Dyspareunia 05/29/2010 10/10/2010 Urge incontinence 05/29/2010 07/13/2013 Urgency of urination 05/29/2010 013 Abdominal pain, periumbilic 04/04/2010 07/13/2013 Tibialis tendinitis 06/14/2008 07/26/20 08 Other enthesopathy of ankle and tarsus 06/14/2008 07/26/2008 Sprain of ankle, unspecified site 10/05/2007 07/13/2013 Contusion of foot 06/25/2007 07/13/2013 Disturbance of skin sensation 06/17/2007 07/13/2013 Contact dermatitis and other eczema, due to unspecified cause 07/13/2013 documented as of this encounter (statuses as of 04/12/2023) [facility] History of Past illness Narrative* Problem Noted Date Diagnosed Date Resolved Date NO SHOW 05/12/2013 07/13/2013 Closed fracture of navicular (scaphoid) bone of foot 12/10/2011 07/13/2013 Acute endometritis 07/04/2010 1 Abdominal pain, generalized 07/04/2010 07/13/2013 Excessive or frequent menstruation 05/29/2010 10/10/2010 Abdominal pain, right lower quadrant 05/29/2010 10/10/2010 Unspecified symptom associat ed with female genital organs 05/29/2010 07/13/2013 Dyspareunia 05/29/2010 10/10/2010 Urge incontinence 05/29/2010 07/13/2013 Urgency of urination 05/29/2010 013 Abdominal pain, periumbilic 04/04/2010 07/13/2013 Tibialis tendinitis 06/14/2008 07/26/20 08 Other enthesopathy of ankle and tarsus 06/14/2008 07/26/2008 Sprain of ankle, unspecified site 10/05/2007 07/13/2013 Contusion of foot 06/25/2007 07/13/2013 Disturbance of skin sensation 06/17/2007 07/13/2013 Contact dermatitis and other eczema, due to unspecified cause 07/13/2013 documented as of this encounter (statuses as of 04/12/2023) [facility] History of Past illness Narrative* Problem Noted Date Diagnosed Date Resolved Date NO SHOW 05/12/2013 07/13/2013 Closed fracture of navicular (scaphoid) bone of foot 12/10/2011 07/13/2013 Acute endometritis 07/04/2010 1 Abdominal pain, generalized 07/04/2010 07/13/2013 Excessive or frequent menstruation 05/29/2010 10/10/2010 Abdominal pain, right lower quadrant 05/29/2010 10/10/2010 Unspecified symptom associat ed with female genital organs 05/29/2010 07/13/2013 Dyspareunia 05/29/2010 10/10/2010 Urge incontinence 05/29/2010 07/13/2013 Urgency of urination 05/29/2010 013 Abdominal pain, periumbilic 04/04/2010 07/13/2013 Tibialis tendinitis 06/14/2008 07/26/20 08 Other enthesopathy of ankle and tarsus 06/14/2008 07/26/2008 Sprain of ankle, unspecified site 10/05/2007 07/13/2013 Contusion of foot 06/25/2007 07/13/2013 Disturbance of skin sensation 06/17/2007 07/13/2013 Contact dermatitis and other eczema, due to unspecified cause 07/13/2013 documented as of this encounter (statuses as of 04/12/2023) [facility] History of Past illness Narrative* Problem Noted Date Diagnosed Date Resolved Date NO SHOW 05/12/2013 07/13/2013 Closed fracture of navicular (scaphoid) bone of foot 12/10/2011 07/13/2013 Acute endometritis 07/04/2010 1 Abdominal pain, generalized 07/04/2010 07/13/2013 Excessive or frequent menstruation 05/29/2010 10/10/2010 Abdominal pain, right lower quadrant 05/29/2010 10/10/2010 Unspecified symptom associat ed with female genital organs 05/29/2010 07/13/2013 Dyspareunia 05/29/2010 10/10/2010 Urge incontinence 05/29/2010 07/13/2013 Urgency of urination 05/29/2010 013 Abdominal pain, periumbilic 04/04/2010 07/13/2013 Tibialis tendinitis 06/14/2008 07/26/20 08 Other enthesopathy of ankle and tarsus 06/14/2008 07/26/2008 Sprain of ankle, unspecified site 10/05/2007 07/13/2013 Contusion of foot 06/25/2007 07/13/2013 Disturbance of skin sensation 06/17/2007 07/13/2013 Contact dermatitis and other eczema, due to unspecified cause 07/13/2013 documented as of this encounter (statuses as of 04/16/2023) [facility] History of Past illness Narrative* Problem Noted Date Diagnosed Date Resolved Date NO SHOW 05/12/2013 07/13/2013 Closed fracture of navicular (scaphoid) bone of foot 12/10/2011 07/13/2013 Acute endometritis 07/04/2010 1 Abdominal pain, generalized 07/04/2010 07/13/2013 Excessive or frequent menstruation 05/29/2010 10/10/2010 Abdominal pain, right lower quadrant 05/29/2010 10/10/2010 Unspecified symptom associat ed with female genital organs 05/29/2010 07/13/2013 Dyspareunia 05/29/2010 10/10/2010 Urge incontinence 05/29/2010 07/13/2013 Urgency of urination 05/29/2010 013 Abdominal pain, periumbilic 04/04/2010 07/13/2013 Tibialis tendinitis 06/14/2008 07/26/20 08 Other enthesopathy of ankle and tarsus 06/14/2008 07/26/2008 Sprain of ankle, unspecified site 10/05/2007 07/13/2013 Contusion of foot 06/25/2007 07/13/2013 Disturbance of skin sensation 06/17/2007 07/13/2013 Contact dermatitis and other eczema, due to unspecified cause 07/13/2013 documented as of this encounter (statuses as of 04/17/2023) [facility] History of Past illness Narrative* Problem Noted Date Diagnosed Date Resolved Date NO SHOW 05/12/2013 07/13/2013 Closed fracture of navicular (scaphoid) bone of foot 12/10/2011 07/13/2013 Acute endometritis 07/04/2010 1 Abdominal pain, generalized 07/04/2010 07/13/2013 Excessive or frequent menstruation 05/29/2010 10/10/2010 Abdominal pain, right lower quadrant 05/29/2010 10/10/2010 Unspecified symptom associat ed with female genital organs 05/29/2010 07/13/2013 Dyspareunia 05/29/2010 10/10/2010 Urge incontinence 05/29/2010 07/13/2013 Urgency of urination 05/29/2010 013 Abdominal pain, periumbilic 04/04/2010 07/13/2013 Tibialis tendinitis 06/14/2008 07/26/20 08 Other enthesopathy of ankle and tarsus 06/14/2008 07/26/2008 Sprain of ankle, unspecified site 10/05/2007 07/13/2013 Contusion of foot 06/25/2007 07/13/2013 Disturbance of skin sensation 06/17/2007 07/13/2013 Contact dermatitis and other eczema, due to unspecified cause 07/13/2013 documented as of this encounter (statuses as of 04/21/2023) [facility] History of Past illness Narrative* Problem Noted Date Diagnosed Date Resolved Date NO SHOW 05/12/2013 07/13/2013 Closed fracture of navicular (scaphoid) bone of foot 12/10/2011 07/13/2013 Acute endometritis 07/04/2010 1 Abdominal pain, generalized 07/04/2010 07/13/2013 Excessive or frequent menstruation 05/29/2010 10/10/2010 Abdominal pain, right lower quadrant 05/29/2010 10/10/2010 Unspecified symptom associat ed with female genital organs 05/29/2010 07/13/2013 Dyspareunia 05/29/2010 10/10/2010 Urge incontinence 05/29/2010 07/13/2013 Urgency of urination 05/29/2010 013 Abdominal pain, periumbilic 04/04/2010 07/13/2013 Tibialis tendinitis 06/14/2008 07/26/20 08 Other enthesopathy of ankle and tarsus 06/14/2008 07/26/2008 Sprain of ankle, unspecified site 10/05/2007 07/13/2013 Contusion of foot 06/25/2007 07/13/2013 Disturbance of skin sensation 06/17/2007 07/13/2013 Contact dermatitis and other eczema, due to unspecified cause 07/13/2013 documented as of this encounter (statuses as of 04/29/2023) [facility] History of Past illness Narrative* Problem Noted Date Diagnosed Date Resolved Date NO SHOW 05/12/2013 07/13/2013 Closed fracture of navicular (scaphoid) bone of foot 12/10/2011 07/13/2013 Acute endometritis 07/04/2010 1 Abdominal pain, generalized 07/04/2010 07/13/2013 Excessive or frequent menstruation 05/29/2010 10/10/2010 Abdominal pain, right lower quadrant 05/29/2010 10/10/2010 Unspecified symptom associat ed with female genital organs 05/29/2010 07/13/2013 Dyspareunia 05/29/2010 10/10/2010 Urge incontinence 05/29/2010 07/13/2013 Urgency of urination 05/29/2010 013 Abdominal pain, periumbilic 04/04/2010 07/13/2013 Tibialis tendinitis 06/14/2008 07/26/20 08 Other enthesopathy of ankle and tarsus 06/14/2008 07/26/2008 Sprain of ankle, unspecified site 10/05/2007 07/13/2013 Contusion of foot 06/25/2007 07/13/2013 Disturbance of skin sensation 06/17/2007 07/13/2013 Contact dermatitis and other eczema, due to unspecified cause 07/13/2013 documented as of this encounter (statuses as of 05/03/2023) [facility] History of Past illness Narrative* Problem Noted Date Diagnosed Date Resolved Date NO SHOW 05/12/2013 07/13/2013 Closed fracture of navicular (scaphoid) bone of foot 12/10/2011 07/13/2013 Acute endometritis 07/04/2010 1 Abdominal pain, generalized 07/04/2010 07/13/2013 Excessive or frequent menstruation 05/29/2010 10/10/2010 Abdominal pain, right lower quadrant 05/29/2010 10/10/2010 Unspecified symptom associat ed with female genital organs 05/29/2010 07/13/2013 Dyspareunia 05/29/2010 10/10/2010 Urge incontinence 05/29/2010 07/13/2013 Urgency of urination 05/29/2010 013 Abdominal pain, periumbilic 04/04/2010 07/13/2013 Tibialis tendinitis 06/14/2008 07/26/20 08 Other enthesopathy of ankle and tarsus 06/14/2008 07/26/2008 Sprain of ankle, unspecified site 10/05/2007 07/13/2013 Contusion of foot 06/25/2007 07/13/2013 Disturbance of skin sensation 06/17/2007 07/13/2013 Contact dermatitis and other eczema, due to unspecified cause 07/13/2013 documented as of this encounter (statuses as of 05/03/2023) [facility] History of Past illness Narrative* Problem Noted Date Diagnosed Date Resolved Date NO SHOW 05/12/2013 07/13/2013 Closed fracture of navicular (scaphoid) bone of foot 12/10/2011 07/13/2013 Acute endometritis 07/04/2010 1 Abdominal pain, generalized 07/04/2010 07/13/2013 Excessive or frequent menstruation 05/29/2010 10/10/2010 Abdominal pain, right lower quadrant 05/29/2010 10/10/2010 Unspecified symptom associat ed with female genital organs 05/29/2010 07/13/2013 Dyspareunia 05/29/2010 10/10/2010 Urge incontinence 05/29/2010 07/13/2013 Urgency of urination 05/29/2010 013 Abdominal pain, periumbilic 04/04/2010 07/13/2013 Tibialis tendinitis 06/14/2008 07/26/20 08 Other enthesopathy of ankle and tarsus 06/14/2008 07/26/2008 Sprain of ankle, unspecified site 10/05/2007 07/13/2013 Contusion of foot 06/25/2007 07/13/2013 Disturbance of skin sensation 06/17/2007 07/13/2013 Contact dermatitis and other eczema, due to unspecified cause 07/13/2013 documented as of this encounter (statuses as of 05/10/2023) [facility] History of Past illness Narrative* Problem Noted Date Diagnosed Date Resolved Date NO SHOW 05/12/2013 07/13/2013 Closed fracture of navicular (scaphoid) bone of foot 12/10/2011 07/13/2013 Acute endometritis 07/04/2010 1 Abdominal pain, generalized 07/04/2010 07/13/2013 Excessive or frequent menstruation 05/29/2010 10/10/2010 Abdominal pain, right lower quadrant 05/29/2010 10/10/2010 Unspecified symptom associat ed with female genital organs 05/29/2010 07/13/2013 Dyspareunia 05/29/2010 10/10/2010 Urge incontinence 05/29/2010 07/13/2013 Urgency of urination 05/29/2010 013 Abdominal pain, periumbilic 04/04/2010 07/13/2013 Tibialis tendinitis 06/14/2008 07/26/20 08 Other enthesopathy of ankle and tarsus 06/14/2008 07/26/2008 Sprain of ankle, unspecified site 10/05/2007 07/13/2013 Contusion of foot 06/25/2007 07/13/2013 Disturbance of skin sensation 06/17/2007 07/13/2013 Contact dermatitis and other eczema, due to unspecified cause 07/13/2013 documented as of this encounter (statuses as of 05/20/2023) [facility] History of Past illness Narrative* Problem Noted Date Diagnosed Date Resolved Date NO SHOW 05/12/2013 07/13/2013 Closed fracture of navicular (scaphoid) bone of foot 12/10/2011 07/13/2013 Acute endometritis 07/04/2010 1 Abdominal pain, generalized 07/04/2010 07/13/2013 Excessive or frequent menstruation 05/29/2010 10/10/2010 Abdominal pain, right lower quadrant 05/29/2010 10/10/2010 Unspecified symptom associat ed with female genital organs 05/29/2010 07/13/2013 Dyspareunia 05/29/2010 10/10/2010 Urge incontinence 05/29/2010 07/13/2013 Urgency of urination 05/29/2010 013 Abdominal pain, periumbilic 04/04/2010 07/13/2013 Tibialis tendinitis 06/14/2008 12/16/20 08 Other enthesopathy of ankle and tarsus 06/14/2008 07/26/2008 Sprain of ankle, unspecified site 10/05/2007 07/13/2013 Contusion of foot 06/25/2007 07/13/2013 Disturbance of skin sensation 06/17/2007 07/13/2013 Contact dermatitis and other eczema, due to unspecified cause 07/13/2013 documented as of this encounter (statuses as of 05/22/2023) [facility] History of Past illness Narrative* Problem Noted Date Diagnosed Date Resolved Date NO SHOW 05/12/2013 07/13/2013 Closed fracture of navicular (scaphoid) bone of foot 12/10/2011 07/13/2013 Acute endometritis 07/04/2010 1 Abdominal pain, generalized 07/04/2010 07/13/2013 Excessive or frequent menstruation 05/29/2010 10/10/2010 Abdominal pain, right lower quadrant 05/29/2010 10/10/2010 Unspecified symptom associat ed with female genital organs 05/29/2010 07/13/2013 Dyspareunia 05/29/2010 10/10/2010 Urge incontinence 05/29/2010 07/13/2013 Urgency of urination 05/29/2010 013 Abdominal pain, periumbilic 04/04/2010 07/13/2013 Tibialis tendinitis 06/14/2008 07/26/20 08 Other enthesopathy of ankle and tarsus 06/14/2008 07/26/2008 Sprain of ankle, unspecified site 10/05/2007 07/13/2013 Contusion of foot 06/25/2007 07/13/2013 Disturbance of skin sensation 06/17/2007 07/13/2013 Contact dermatitis and other eczema, due to unspecified cause 07/13/2013 documented as of this encounter (statuses as of 05/29/2023) [facility]10-02-2013 History of Past illness Narrative* Problem Noted Date Diagnosed Date Resolved Date NO SHOW 05/12/2013 07/13/2013 Closed fracture of navicular (scaphoid) bone of foot 12/10/2011 07/13/2013 Acute endometritis 07/04/2010 1 Abdominal pain, generalized 07/04/2010 07/13/2013 Excessive or frequent menstruation 05/29/2010 10/10/2010 Abdominal pain, right lower quadrant 05/29/2010 10/10/2010 Unspecified symptom associat ed with female genital organs 05/29/2010 07/13/2013 Dyspareunia 05/29/2010 10/10/2010 Urge incontinence 05/29/2010 07/13/2013 Urgency of urination 05/29/2010 013 Abdominal pain, periumbilic 04/04/2010 07/13/2013 Tibialis tendinitis 06/14/2008 07/26/20 08 Other enthesopathy of ankle and tarsus 06/14/2008 07/26/2008 Sprain of ankle, unspecified site 10/05/2007 07/13/2013 Contusion of foot 06/25/2007 07/13/2013 Disturbance of skin sensation 06/17/2007 07/13/2013 Contact dermatitis and other eczema, due to unspecified cause 07/13/2013 documented as of this encounter (statuses as of 06/15/2023) [facility] History of Past illness Narrative* Problem Noted Date Diagnosed Date Resolved Date NO SHOW 05/12/2013 07/13/2013 Closed fracture of navicular (scaphoid) bone of foot 12/10/2011 07/13/2013 Acute endometritis 07/04/2010 1 Abdominal pain, generalized 07/04/2010 07/13/2013 Excessive or frequent menstruation 05/29/2010 10/10/2010 Abdominal pain, right lower quadrant 05/29/2010 10/10/2010 Unspecified symptom associat ed with female genital organs 05/29/2010 07/13/2013 Dyspareunia 05/29/2010 10/10/2010 Urge incontinence 05/29/2010 07/13/2013 Urgency of urination 05/29/2010 013 Abdominal pain, periumbilic 04/04/2010 07/13/2013 Tibialis tendinitis 06/14/2008 07/26/20 08 Other enthesopathy of ankle and tarsus 06/14/2008 07/26/2008 Sprain of ankle, unspecified site 10/05/2007 07/13/2013 Contusion of foot 06/25/2007 07/13/2013 Disturbance of skin sensation 06/17/2007 07/13/2013 Contact dermatitis and other eczema, due to unspecified cause 07/13/2013 documented as of this encounter (statuses as of 06/15/2023) [facility] History of Past illness Narrative* Problem Noted Date Diagnosed Date Resolved Date NO SHOW 05/12/2013 07/13/2013 Closed fracture of navicular (scaphoid) bone of foot 12/10/2011 07/13/2013 Acute endometritis 07/04/2010 1 Abdominal pain, generalized 07/04/2010 07/13/2013 Excessive or frequent menstruation 05/29/2010 10/10/2010 Abdominal pain, right lower quadrant 05/29/2010 10/10/2010 Unspecified symptom associat ed with female genital organs 05/29/2010 07/13/2013 Dyspareunia 05/29/2010 10/10/2010 Urge incontinence 05/29/2010 07/13/2013 Urgency of urination 05/29/2010 013 Abdominal pain, periumbilic 04/04/2010 07/13/2013 Tibialis tendinitis 06/14/2008 07/26/20 08 Other enthesopathy of ankle and tarsus 06/14/2008 07/26/2008 Sprain of ankle, unspecified site 10/05/2007 07/13/2013 Contusion of foot 06/25/2007 07/13/2013 Disturbance of skin sensation 06/17/2007 07/13/2013 Contact dermatitis and other eczema, due to unspecified cause 07/13/2013 documented as of this encounter (statuses as of 06/15/2023) [facility] History of Past illness Narrative* Problem Noted Date Diagnosed Date Resolved Date NO SHOW 05/12/2013 07/13/2013 Closed fracture of navicular (scaphoid) bone of foot 12/10/2011 07/13/2013 Acute endometritis 07/04/2010 1 Abdominal pain, generalized 07/04/2010 07/13/2013 Excessive or frequent menstruation 05/29/2010 10/10/2010 Abdominal pain, right lower quadrant 05/29/2010 10/10/2010 Unspecified symptom associat ed with female genital organs 05/29/2010 07/13/2013 Dyspareunia 05/29/2010 10/10/2010 Urge incontinence 05/29/2010 07/13/2013 Urgency of urination 05/29/2010 013 Abdominal pain, periumbilic 04/04/2010 07/13/2013 Tibialis tendinitis 06/14/2008 07/26/20 08 Other enthesopathy of ankle and tarsus 06/14/2008 07/26/2008 Sprain of ankle, unspecified site 10/05/2007 07/13/2013 Contusion of foot 06/25/2007 07/13/2013 Disturbance of skin sensation 06/17/2007 07/13/2013 Contact dermatitis and other eczema, due to unspecified cause 07/13/2013 documented as of this encounter (statuses as of 06/15/2023) [facility] History of Past illness Narrative* Problem Noted Date Diagnosed Date Resolved Date NO SHOW 05/12/2013 07/13/2013 Closed fracture of navicular (scaphoid) bone of foot 12/10/2011 07/13/2013 Acute endometritis 07/04/2010 1 Abdominal pain, generalized 07/04/2010 07/13/2013 Excessive or frequent menstruation 05/29/2010 10/10/2010 Abdominal pain, right lower quadrant 05/29/2010 10/10/2010 Unspecified symptom associat ed with female genital organs 05/29/2010 07/13/2013 Dyspareunia 05/29/2010 10/10/2010 Urge incontinence 05/29/2010 07/13/2013 Urgency of urination 05/29/2010 013 Abdominal pain, periumbilic 04/04/2010 07/13/2013 Tibialis tendinitis 06/14/2008 07/26/20 08 Other enthesopathy of ankle and tarsus 06/14/2008 07/26/2008 Sprain of ankle, unspecified site 10/05/2007 07/13/2013 Contusion of foot 06/25/2007 07/13/2013 Disturbance of skin sensation 06/17/2007 07/13/2013 Contact dermatitis and other eczema, due to unspecified cause 07/13/2013 documented as of this encounter (statuses as of 06/18/2023) [facility] History of Past illness Narrative* Problem Noted Date Diagnosed Date Resolved Date NO SHOW 05/12/2013 07/13/2013 Closed fracture of navicular (scaphoid) bone of foot 12/10/2011 07/13/2013 Acute endometritis 07/04/2010 1 Abdominal pain, generalized 07/04/2010 07/13/2013 Excessive or frequent menstruation 05/29/2010 10/10/2010 Abdominal pain, right lower quadrant 05/29/2010 10/10/2010 Unspecified symptom associat ed with female genital organs 05/29/2010 07/13/2013 Dyspareunia 05/29/2010 10/10/2010 Urge incontinence 05/29/2010 07/13/2013 Urgency of urination 05/29/2010 013 Abdominal pain, periumbilic 04/04/2010 07/13/2013 Tibialis tendinitis 06/14/2008 07/26/20 08 Other enthesopathy of ankle and tarsus 06/14/2008 07/26/2008 Sprain of ankle, unspecified site 10/05/2007 07/13/2013 Contusion of foot 06/25/2007 07/13/2013 Disturbance of skin sensation 06/17/2007 07/13/2013 Contact dermatitis and other eczema, due to unspecified cause 07/13/2013 documented as of this encounter (statuses as of 06/18/2023) [facility] History of Past illness Narrative* Problem Noted Date Diagnosed Date Resolved Date NO SHOW 05/12/2013 07/13/2013 Closed fracture of navicular (scaphoid) bone of foot 12/10/2011 07/13/2013 Acute endometritis 07/04/2010 1 Abdominal pain, generalized 07/04/2010 07/13/2013 Excessive or frequent menstruation 05/29/2010 10/10/2010 Abdominal pain, right lower quadrant 05/29/2010 10/10/2010 Unspecified symptom associat ed with female genital organs 05/29/2010 07/13/2013 Dyspareunia 05/29/2010 10/10/2010 Urge incontinence 05/29/2010 07/13/2013 Urgency of urination 05/29/2010 013 Abdominal pain, periumbilic 04/04/2010 07/13/2013 Tibialis tendinitis 06/14/2008 07/26/20 08 Other enthesopathy of ankle and tarsus 06/14/2008 07/26/2008 Sprain of ankle, unspecified site 10/05/2007 07/13/2013 Contusion of foot 06/25/2007 07/13/2013 Disturbance of skin sensation 06/17/2007 07/13/2013 Contact dermatitis and other eczema, due to unspecified cause 07/13/2013 documented as of this encounter (statuses as of 06/24/2023) [facility] History of Past illness Narrative* Problem Noted Date Diagnosed Date Resolved Date NO SHOW 05/12/2013 07/13/2013 Closed fracture of navicular (scaphoid) bone of foot 12/10/2011 07/13/2013 Acute endometritis 07/04/2010 1 Abdominal pain, generalized 07/04/2010 07/13/2013 Excessive or frequent menstruation 05/29/2010 10/10/2010 Abdominal pain, right lower quadrant 05/29/2010 10/10/2010 Unspecified symptom associat ed with female genital organs 05/29/2010 07/13/2013 Dyspareunia 05/29/2010 10/10/2010 Urge incontinence 05/29/2010 07/13/2013 Urgency of urination 05/29/2010 013 Abdominal pain, periumbilic 04/04/2010 07/13/2013 Tibialis tendinitis 06/14/2008 07/26/20 08 Other enthesopathy of ankle and tarsus 06/14/2008 07/26/2008 Sprain of ankle, unspecified site 10/05/2007 07/13/2013 Contusion of foot 06/25/2007 07/13/2013 Disturbance of skin sensation 06/17/2007 07/13/2013 Contact dermatitis and other eczema, due to unspecified cause 07/13/2013 documented as of this encounter (statuses as of 06/27/2023) [facility] History of Past illness Narrative* Problem Noted Date Diagnosed Date Resolved Date NO SHOW 05/12/2013 07/13/2013 Closed fracture of navicular (scaphoid) bone of foot 12/10/2011 07/13/2013 Acute endometritis 07/04/2010 1 Abdominal pain, generalized 07/04/2010 07/13/2013 Excessive or frequent menstruation 05/29/2010 10/10/2010 Abdominal pain, right lower quadrant 05/29/2010 10/10/2010 Unspecified symptom associat ed with female genital organs 05/29/2010 07/13/2013 Dyspareunia 05/29/2010 10/10/2010 Urge incontinence 05/29/2010 07/13/2013 Urgency of urination 05/29/2010 013 Abdominal pain, periumbilic 04/04/2010 07/13/2013 Tibialis tendinitis 06/14/2008 07/26/20 08 Other enthesopathy of ankle and tarsus 06/14/2008 07/26/2008 Sprain of ankle, unspecified site 10/05/2007 07/13/2013 Contusion of foot 06/25/2007 07/13/2013 Disturbance of skin sensation 06/17/2007 07/13/2013 Contact dermatitis and other eczema, due to unspecified cause 07/13/2013 documented as of this encounter (statuses as of 06/27/2023) [facility] History of Past illness Narrative* Problem Noted Date Diagnosed Date Resolved Date NO SHOW 05/12/2013 07/13/2013 Closed fracture of navicular (scaphoid) bone of foot 12/10/2011 07/13/2013 Acute endometritis 07/04/2010 1 Abdominal pain, generalized 07/04/2010 07/13/2013 Excessive or frequent menstruation 05/29/2010 10/10/2010 Abdominal pain, right lower quadrant 05/29/2010 10/10/2010 Unspecified symptom associat ed with female genital organs 05/29/2010 07/13/2013 Dyspareunia 05/29/2010 10/10/2010 Urge incontinence 05/29/2010 07/13/2013 Urgency of urination 05/29/2010 013 Abdominal pain, periumbilic 04/04/2010 07/13/2013 Tibialis tendinitis 06/14/2008 07/26/20 08 Other enthesopathy of ankle and tarsus 06/14/2008 07/26/2008 Sprain of ankle, unspecified site 10/05/2007 07/13/2013 Contusion of foot 06/25/2007 07/13/2013 Disturbance of skin sensation 06/17/2007 07/13/2013 Contact dermatitis and other eczema, due to unspecified cause 07/13/2013 documented as of this encounter (statuses as of 06/27/2023) [facility] History of Past illness Narrative* Problem Noted Date Diagnosed Date Resolved Date NO SHOW 05/12/2013 07/13/2013 Closed fracture of navicular (scaphoid) bone of foot 12/10/2011 07/13/2013 Acute endometritis 07/04/2010 1 Abdominal pain, generalized 07/04/2010 07/13/2013 Excessive or frequent menstruation 05/29/2010 10/10/2010 Abdominal pain, right lower quadrant 05/29/2010 10/10/2010 Unspecified symptom associat ed with female genital organs 05/29/2010 07/13/2013 Dyspareunia 05/29/2010 10/10/2010 Urge incontinence 05/29/2010 07/13/2013 Urgency of urination 05/29/2010 013 Abdominal pain, periumbilic 04/04/2010 07/13/2013 Tibialis tendinitis 06/14/2008 07/26/20 08 Other enthesopathy of ankle and tarsus 06/14/2008 07/26/2008 Sprain of ankle, unspecified site 10/05/2007 07/13/2013 Contusion of foot 06/25/2007 07/13/2013 Disturbance of skin sensation 06/17/2007 07/13/2013 Contact dermatitis and other eczema, due to unspecified cause 07/13/2013 documented as of this encounter (statuses as of 07/02/2023) [facility] History of Past illness Narrative* Problem Noted Date Diagnosed Date Resolved Date NO SHOW 05/12/2013 07/13/2013 Closed fracture of navicular (scaphoid) bone of foot 12/10/2011 07/13/2013 Acute endometritis 07/04/2010 1 Abdominal pain, generalized 07/04/2010 07/13/2013 Excessive or frequent menstruation 05/29/2010 10/10/2010 Abdominal pain, right lower quadrant 05/29/2010 10/10/2010 Unspecified symptom associat ed with female genital organs 05/29/2010 07/13/2013 Dyspareunia 05/29/2010 10/10/2010 Urge incontinence 05/29/2010 07/13/2013 Urgency of urination 05/29/2010 013 Abdominal pain, periumbilic 04/04/2010 07/13/2013 Tibialis tendinitis 06/14/2008 07/26/20 08 Other enthesopathy of ankle and tarsus 06/14/2008 07/26/2008 Sprain of ankle, unspecified site 10/05/2007 07/13/2013 Contusion of foot 06/25/2007 07/13/2013 Disturbance of skin sensation 06/17/2007 07/13/2013 Contact dermatitis and other eczema, due to unspecified cause 07/13/2013 documented as of this encounter (statuses as of 07/09/2023) [facility] History of Past illness Narrative* Problem Noted Date Diagnosed Date Resolved Date NO SHOW 05/12/2013 07/13/2013 Closed fracture of navicular (scaphoid) bone of foot 12/10/2011 07/13/2013 Acute endometritis 07/04/2010 1 Abdominal pain, generalized 07/04/2010 07/13/2013 Excessive or frequent menstruation 05/29/2010 10/10/2010 Abdominal pain, right lower quadrant 05/29/2010 10/10/2010 Unspecified symptom associat ed with female genital organs 05/29/2010 07/13/2013 Dyspareunia 05/29/2010 10/10/2010 Urge incontinence 05/29/2010 07/13/2013 Urgency of urination 05/29/2010 013 Abdominal pain, periumbilic 04/04/2010 07/13/2013 Tibialis tendinitis 06/14/2008 07/26/20 08 Other enthesopathy of ankle and tarsus 06/14/2008 07/26/2008 Sprain of ankle, unspecified site 10/05/2007 07/13/2013 Contusion of foot 06/25/2007 07/13/2013 Disturbance of skin sensation 06/17/2007 07/13/2013 Contact dermatitis and other eczema, due to unspecified cause 07/13/2013 documented as of this encounter (statuses as of 07/16/2023) [facility] History of Past illness Narrative* Problem Noted Date Diagnosed Date Resolved Date NO SHOW 05/12/2013 07/13/2013 Closed fracture of navicular (scaphoid) bone of foot 12/10/2011 07/13/2013 Acute endometritis 07/04/2010 1 Abdominal pain, generalized 07/04/2010 07/13/2013 Excessive or frequent menstruation 05/29/2010 10/10/2010 Abdominal pain, right lower quadrant 05/29/2010 10/10/2010 Unspecified symptom associat ed with female genital organs 05/29/2010 07/13/2013 Dyspareunia 05/29/2010 10/10/2010 Urge incontinence 05/29/2010 07/13/2013 Urgency of urination 05/29/2010 013 Abdominal pain, periumbilic 04/04/2010 07/13/2013 Tibialis tendinitis 06/14/2008 07/26/20 08 Other enthesopathy of ankle and tarsus 06/14/2008 07/26/2008 Sprain of ankle, unspecified site 10/05/2007 07/13/2013 Contusion of foot 06/25/2007 07/13/2013 Disturbance of skin sensation 06/17/2007 07/13/2013 Contact dermatitis and other eczema, due to unspecified cause 07/13/2013 documented as of this encounter (statuses as of 07/16/2023) [facility] History of Past illness Narrative* Problem Noted Date Diagnosed Date Resolved Date NO SHOW 05/12/2013 07/13/2013 Closed fracture of navicular (scaphoid) bone of foot 12/10/2011 07/13/2013 Acute endometritis 07/04/2010 1 Abdominal pain, generalized 07/04/2010 07/13/2013 Excessive or frequent menstruation 05/29/2010 10/10/2010 Abdominal pain, right lower quadrant 05/29/2010 10/10/2010 Unspecified symptom associat ed with female genital organs 05/29/2010 07/13/2013 Dyspareunia 05/29/2010 10/10/2010 Urge incontinence 05/29/2010 07/13/2013 Urgency of urination 05/29/2010 013 Abdominal pain, periumbilic 04/04/2010 07/13/2013 Tibialis tendinitis 06/14/2008 07/26/20 08 Other enthesopathy of ankle and tarsus 06/14/2008 07/26/2008 Sprain of ankle, unspecified site 10/05/2007 07/13/2013 Contusion of foot 06/25/2007 07/13/2013 Disturbance of skin sensation 06/17/2007 07/13/2013 Contact dermatitis and other eczema, due to unspecified cause 07/13/2013 documented as of this encounter (statuses as of 07/17/2023) [facility] History of Past illness Narrative* Problem Noted Date Diagnosed Date Resolved Date NO SHOW 05/12/2013 07/13/2013 Closed fracture of navicular (scaphoid) bone of foot 12/10/2011 07/13/2013 Acute endometritis 07/04/2010 1 Abdominal pain, generalized 07/04/2010 07/13/2013 Excessive or frequent menstruation 05/29/2010 10/10/2010 Abdominal pain, right lower quadrant 05/29/2010 10/10/2010 Unspecified symptom associat ed with female genital organs 05/29/2010 07/13/2013 Dyspareunia 05/29/2010 10/10/2010 Urge incontinence 05/29/2010 07/13/2013 Urgency of urination 05/29/2010 013 Abdominal pain, periumbilic 04/04/2010 07/13/2013 Tibialis tendinitis 06/14/2008 07/26/20 08 Other enthesopathy of ankle and tarsus 06/14/2008 07/26/2008 Sprain of ankle, unspecified site 10/05/2007 07/13/2013 Contusion of foot 06/25/2007 07/13/2013 Disturbance of skin sensation 06/17/2007 07/13/2013 Contact dermatitis and other eczema, due to unspecified cause 07/13/2013 documented as of this encounter (statuses as of 10/08/2023) [facility] History of Past illness Narrative* Problem Noted Date Diagnosed Date Resolved Date NO SHOW 05/12/2013 07/13/2013 Closed fracture of navicular (scaphoid) bone of foot 12/10/2011 07/13/2013 Acute endometritis 07/04/2010 1 Abdominal pain, generalized 07/04/2010 07/13/2013 Excessive or frequent menstruation 05/29/2010 10/10/2010 Abdominal pain, right lower quadrant 05/29/2010 10/10/2010 Unspecified symptom associat ed with female genital organs 05/29/2010 07/13/2013 Dyspareunia 05/29/2010 10/10/2010 Urge incontinence 05/29/2010 07/13/2013 Urgency of urination 05/29/2010 013 Abdominal pain, periumbilic 04/04/2010 07/13/2013 Tibialis tendinitis 06/14/2008 07/26/20 08 Other enthesopathy of ankle and tarsus 06/14/2008 07/26/2008 Sprain of ankle, unspecified site 10/05/2007 07/13/2013 Contusion of foot 06/25/2007 07/13/2013 Disturbance of skin sensation 06/17/2007 07/13/2013 Contact dermatitis and other eczema, due to unspecified cause 07/13/2013 documented as of this encounter (statuses as of 10/15/2023) [facility] History of Past illness Narrative* Problem Noted Date Diagnosed Date Resolved Date NO SHOW 05/12/2013 07/13/2013 Closed fracture of navicular (scaphoid) bone of foot 12/10/2011 07/13/2013 Acute endometritis 07/04/2010 1 Abdominal pain, generalized 07/04/2010 07/13/2013 Excessive or frequent menstruation 05/29/2010 10/10/2010 Abdominal pain, right lower quadrant 05/29/2010 10/10/2010 Unspecified symptom associat ed with female genital organs 05/29/2010 07/13/2013 Dyspareunia 05/29/2010 10/10/2010 Urge incontinence 05/29/2010 07/13/2013 Urgency of urination 05/29/2010 013 Abdominal pain, periumbilic 04/04/2010 07/13/2013 Tibialis tendinitis 06/14/2008 07/26/20 08 Other enthesopathy of ankle and tarsus 06/14/2008 07/26/2008 Sprain of ankle, unspecified site 10/05/2007 07/13/2013 Contusion of foot 06/25/2007 07/13/2013 Disturbance of skin sensation 06/17/2007 07/13/2013 Contact dermatitis and other eczema, due to unspecified cause 07/13/2013 documented as of this encounter (statuses as of 11/20/2023) [facility] History of Past illness Narrative* Problem Noted Date Diagnosed Date Resolved Date NO SHOW 05/12/2013 07/13/2013 Closed fracture of navicular (scaphoid) bone of foot 12/10/2011 07/13/2013 Acute endometritis 07/04/2010 1 Abdominal pain, generalized 07/04/2010 07/13/2013 Excessive or frequent menstruation 05/29/2010 10/10/2010 Abdominal pain, right lower quadrant 05/29/2010 10/10/2010 Unspecified symptom associat ed with female genital organs 05/29/2010 07/13/2013 Dyspareunia 05/29/2010 10/10/2010 Urge incontinence 05/29/2010 07/13/2013 Urgency of urination 05/29/2010 013 Abdominal pain, periumbilic 04/04/2010 07/13/2013 Tibialis tendinitis 06/14/2008 07/26/20 08 Other enthesopathy of ankle and tarsus 06/14/2008 07/26/2008 Sprain of ankle, unspecified site 10/05/2007 07/13/2013 Contusion of foot 06/25/2007 07/13/2013 Disturbance of skin sensation 06/17/2007 07/13/2013 Contact dermatitis and other eczema, due to unspecified cause 07/13/2013 documented as of this encounter (statuses as of 11/25/2023) [facility] History of Past illness Narrative* Problem Noted Date Diagnosed Date Resolved Date NO SHOW 05/12/2013 07/13/2013 Closed fracture of navicular (scaphoid) bone of foot 12/10/2011 07/13/2013 Acute endometritis 07/04/2010 1 Abdominal pain, generalized 07/04/2010 07/13/2013 Excessive or frequent menstruation 05/29/2010 10/10/2010 Abdominal pain, right lower quadrant 05/29/2010 10/10/2010 Unspecified symptom associat ed with female genital organs 05/29/2010 07/13/2013 Dyspareunia 05/29/2010 10/10/2010 Urge incontinence 05/29/2010 07/13/2013 Urgency of urination 05/29/2010 013 Abdominal pain, periumbilic 04/04/2010 07/13/2013 Tibialis tendinitis 06/14/2008 07/26/20 08 Other enthesopathy of ankle and tarsus 06/14/2008 07/26/2008 Sprain of ankle, unspecified site 10/05/2007 07/13/2013 Contusion of foot 06/25/2007 07/13/2013 Disturbance of skin sensation 06/17/2007 07/13/2013 Contact dermatitis and other eczema, due to unspecified cause 07/13/2013 documented as of this encounter (statuses as of 11/28/2023) [facility] History of Past illness Narrative* Problem Noted Date Diagnosed Date Resolved Date NO SHOW 05/12/2013 07/13/2013 Closed fracture of navicular (scaphoid) bone of foot 12/10/2011 07/13/2013 Acute endometritis 07/04/2010 1 Abdominal pain, generalized 07/04/2010 07/13/2013 Excessive or frequent menstruation 05/29/2010 10/10/2010 Abdominal pain, right lower quadrant 05/29/2010 10/10/2010 Unspecified symptom associat ed with female genital organs 05/29/2010 07/13/2013 Dyspareunia 05/29/2010 10/10/2010 Urge incontinence 05/29/2010 07/13/2013 Urgency of urination 05/29/2010 013 Abdominal pain, periumbilic 04/04/2010 07/13/2013 Tibialis tendinitis 06/14/2008 07/26/20 08 Other enthesopathy of ankle and tarsus 06/14/2008 07/26/2008 Sprain of ankle, unspecified site 10/05/2007 07/13/2013 Contusion of foot 06/25/2007 07/13/2013 Disturbance of skin sensation 06/17/2007 07/13/2013 Contact dermatitis and other eczema, due to unspecified cause 07/13/2013 documented as of this encounter (statuses as of 11/28/2023) [facility] + Plan note No data available for this section [facility] Evaluation note* Diagnosis Anxiety- Primary Anxiety state, unspecified Insomnia, unspecified type Paroxysmal cough [facility] Diagnosis Dysmenorrhea Irregular menstrual cycle Stress incontinence Female stress incontinence [facility] this [facility] Diagnosis Acute pain of right knee Primary osteoarthritis of right knee Primary localized osteoarthrosis, lower leg [facility] Diagnosis Chronic migraine without aura, with intractable migraine, so stated, with status migrainosus- Primary Migraine without aura and without status migrainosus, not intractable Migraine without aura, without mention of intractable migraine without mention of status migrainosus Chronic daily headache Headache Intractable chronic migraine without aura and with status migrainosus Chronic migraine without aura, with intractable migraine, so stated, with status migrainosus [facility] Insomnia, unspecified type- Primary Strain of abdominal muscle, initial encounter Class 3 severe obesity due to excess calories without serious comorbidity with body mass index (BMI) of 40.0 to 44.9 in adult (HCC) Migraine with aura and without status migrainosus, not intractable Migraine with aura, without mention of intractable migraine without mention of status migrainosus Mixed hyperlipidemia Vitamin D deficiency Unspecified vitamin D deficiency Gastroesophageal reflux disease, unspecified whether esophagitis present Dysmetabolic syndrome Dysmetabolic Syndrome X Encounter for long-term current use of medication Paroxysmal cough [facility] Diagnosis Encounter for screening mammogram for breast cancer [facility] Diagnosis Encounter for immunization- Primary Need for other specified prophylactic vaccination against single bacterial disease Mild persistent asthma without complication Unspecified asthma Screening for cervical cancer Screening for malignant neoplasm of the cervix Migraine with aura and without status migrainosus, not intractable Migraine with aura, without mention of intractable migraine without mention of status migrainosus Vagina itching Pruritus of genital organs UTI symptoms Other symptoms involving urinary system Gastroesophageal reflux disease, unspecified whether esophagitis present Mild intermittent asthma without complication Unspecified asthma Insomnia, unspecified type Female stress incontinence Acquired equinus deformity of foot, unspecified laterality Vitamin D deficiency Unspecified vitamin D deficiency Dysmetabolic syndrome Dysmetabolic Syndrome X [facility] Diagnosis Insomnia, unspecified type Anxiety Anxiety state, unspecified [facility] Diagnosis Chronic migraine without aura, with intractable migraine, so stated, with status migrainosus [facility] Diagnosis Acute pain of right shoulder- Primary [facility] Diagnosis Insomnia, unspecified type Anxiety Anxiety state, unspecified [facility] Diagnosis Right ankle pain, unspecified chronicity- Primary [facility]* Diagnosis UTI symptoms Other symptoms involving urinary system [facility] this encounter [facility] Diagnosis Arthralgia of shoulder, unspecified laterality- Primary documented in this encounter [facility]* Diagnosis Rib pain- Primary Chest pain, unspecified Anxiety Anxiety state, unspecified UTI symptoms Other symptoms involving urinary system documented in this encounter [facility]* Diagnosis Sprain of anterior talofibular ligament of right ankle, initial encounter- Primary Acute pain of right knee Primary osteoarthritis of right knee Primary localized osteoarthrosis, lower leg documented in this encounter [facility] note* Diagnosis Migraine without aura and without status migrainosus, not intractable- Primary Migraine without aura, without mention of intractable migraine without mention of status migrainosus Gastroesophageal reflux disease, unspecified whether esophagitis present documented in this encounter [facility] note* Diagnosis Chronic migraine without aura, with intractable migraine, so stated, with status migrainosus- Primary documented in this encounter [facility]* Diagnosis Paroxysmal cough documented in this encounter [facility]* Diagnosis Tobacco use- Primary Tobacco use disorder documented in this encounter [facility] note* Diagnosis Acute cystitis without hematuria- Primary Acute cystitis documented in this encounter [facility]* Diagnosis Insomnia, unspecified type Anxiety Anxiety state, unspecified documented in this encounter [facility]* Diagnosis Abdominal pain, unspecified abdominal location- Primary documented in this encounter [facility]* Diagnosis Toe pain, left- Primary Pain in limb documented in this encounter [facility] note* Diagnosis Closed fracture of phalanx of left fifth toe, initial encounter- Primary Anxiety Anxiety state, unspecified Constipation, unspecified constipation type Gastroesophageal reflux disease, unspecified whether esophagitis present- Primary documented in this encounter [facility] note* Diagnosis Gastroesophageal reflux disease, unspecified whether esophagitis present- Primary Abdominal pain, unspecified abdominal location documented in this encounter [facility]* Diagnosis Closed fracture of phalanx of left fifth toe, initial encounter- Primary documented in this encounter [facility]* Diagnosis Generalized abdominal pain- Primary Abdominal pain, generalized S/P colonoscopy Other postprocedural status [facility]* Diagnosis Constipation, unspecified constipation type- Primary documented in this encounter [facility]* Diagnosis Constipation, unspecified constipation type [facility]* Diagnosis Encounter for screening mammogram for breast cancer [facility]* Diagnosis Insomnia, unspecified type [facility]* Diagnosis Acute pain of right knee Primary osteoarthritis of right knee Primary localized osteoarthrosis, lower leg documented in this encounter [facility]* Diagnosis Bacterial vaginosis- Primary Vaginitis and vulvovaginitis, unspecified Dysuria documented in this encounter [facility]* Diagnosis Constipation, unspecified constipation type- Primary Gastroesophageal reflux disease, unspecified whether esophagitis present Nausea Nausea alone Migraine without aura and without status migrainosus, not intractable Migraine without aura, without mention of intractable migraine without mention of status migrainosus Vitamin D deficiency Unspecified vitamin D deficiency Body mass index 40.0-44.9, adult ([facility]) Body Mass Index 40.0-44.9, adult Encounter for long-term current use of medication [facility]* Diagnosis Disorder of Eustachian tube, right- Primary Acute cystitis without hematuria Acute cystitis Anxiety Anxiety state, unspecified Burning with urination Dysuria Frequency of urination Urinary frequency Acute midline low back pain, unspecified whether sciatica present Encounter for long-term current use of medication [facility]* Diagnosis Other constipation- Primary Epigastric pain Abdominal pain, epigastric [facility]* Diagnosis Chronic migraine without aura, with intractable migraine, so stated, with status migrainosus [facility]* Diagnosis Chronic migraine without aura without status migrainosus, not intractable- Primary Chronic migraine without aura, without mention of intractable migraine without mention of status migrainosus Status migrainosus Variants of migraine, not elsewhere classified, without mention of intractable migraine without mention of status migrainosus [facility]* Diagnosis Paroxysmal cough [facility]* Diagnosis Mild intermittent asthma without complication Unspecified asthma [facility]* Diagnosis Pneumonia due to infectious organism, unspecified laterality, unspecified part of lung- Primary Mild persistent asthma without complication Unspecified asthma GABY (obstructive sleep apnea) Obstructive sleep apnea (adult) (pediatric) Currently attempting to quit smoking Tobacco use disorder Side effect of medication Anxiety Anxiety state, unspecified Hospital discharge follow-up Other follow-up examination documented in this encounter [facility] note* Diagnosis Pneumonia due to infectious organism, unspecified laterality, unspecified part of lung- Primary documented in this encounter [facility] note* Diagnosis Generalized abdominal pain Abdominal pain, generalized documented in this encounter [facility] note* Diagnosis Other constipation documented in this encounter [facility] note* Diagnosis Abdominal pain, unspecified abdominal location Toe pain, left Pain in limb documented in this encounter [facility] note* Diagnosis Right ankle pain, unspecified chronicity documented in this encounter [facility] note* Diagnosis Bacterial pneumonia Bacterial pneumonia, unspecified Axillary mass, right Mass of right axilla documented in this encounter [facility] note* Diagnosis Bacterial pneumonia- Primary Bacterial pneumonia, unspecified Axillary mass, right Mass of right axilla Axillary mass, right Mass of right axilla documented in this encounter [facility] note* Diagnosis Chronic migraine without aura, with intractable migraine, so stated, with status migrainosus Axillary mass, right Mass of right axilla documented in this encounter [facility] note* Diagnosis Insomnia, unspecified type documented in this encounter [facility] note* Diagnosis Chronic migraine without aura without status migrainosus, not intractable- Primary Chronic migraine without aura, without mention of intractable migraine without mention of status migrainosus documented in this encounter [facility] note* Diagnosis Insomnia, unspecified type documented in this encounter [facility] note* Diagnosis Acute pain of right knee Primary osteoarthritis of right knee Primary localized osteoarthrosis, lower leg documented in this encounter [facility]* Diagnosis Anxiety Anxiety state, unspecified documented in this encounter [facility] note* Diagnosis Anxiety- Primary Anxiety state, unspecified Insomnia, unspecified type Right ear pain Otalgia, unspecified Vitamin D deficiency Unspecified vitamin D deficiency Elevated LDL cholesterol level Pure hypercholesterolemia Migraine without aura and without status migrainosus, not intractable Migraine without aura, without mention of intractable migraine without mention of status migrainosus Reactive depression Dysthymic disorder Encounter for long-term current use of medication documented in this encounter [facility] note* Diagnosis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 the event this information is protected by the Federal Confidentiality of Alcohol and Drug Abuse Patient Records regulations: The Federal rules restrict any use of the information to criminally investigate or prosecute any alcohol or drug abuse patient.[facility] HospitalIn the event this information is protected by the Federal Confidentiality of Alcohol and Drug Abuse Patient Records regulations: The Federal rules restrict any use of the information to criminally investigate or prosecute any alcohol or drug abuse patient.[facility] HospitalIn the event this information is protected by the Federal Confidentiality of Alcohol and Drug Abuse Patient Records regulations: The Federal rules restrict any use of the information to criminally investigate or prosecute any alcohol or drug abuse patient.[facility] HospitalIn the event this information is protected by the Federal Confidentiality of Alcohol and Drug Abuse Patient Records regulations: The Federal rules restrict any use of the information to criminally investigate or prosecute any alcohol or drug abuse patient.[facility] HospitalIn the event this information is protected by the Federal Confidentiality of Alcohol and Drug Abuse Patient Records regulations: The Federal rules restrict any use of the information to criminally investigate or prosecute any alcohol or drug abuse patient.[facility] HospitalIn the event this information is protected by the Federal Confidentiality of Alcohol and Drug Abuse Patient Records regulations: The Federal rules restrict any use of the information to criminally investigate or prosecute any alcohol or drug abuse patient.[facility] HospitalIn the event this information is protected by the Federal Confidentiality of Alcohol and Drug Abuse Patient Records regulations: The Federal rules restrict any use of the information to criminally investigate or prosecute any alcohol or drug abuse patient.[facility] HospitalIn the event this information is protected by the Federal Confidentiality of Alcohol and Drug Abuse Patient Records regulations: The Federal rules restrict any use of the information to criminally investigate or prosecute any alcohol or drug abuse patient.[facility] HospitalIn the event this information is protected by the Federal Confidentiality of Alcohol and Drug Abuse Patient Records regulations: The Federal rules restrict any use of the information to criminally investigate or prosecute any alcohol or drug abuse patient.[facility] HospitalIn the event this information is protected by the Federal Confidentiality of Alcohol and Drug Abuse Patient Records regulations: The Federal rules restrict any use of the information to criminally investigate or prosecute any alcohol or drug abuse patient.[facility] HospitalIn the event this information is protected by the Federal Confidentiality of Alcohol and Drug Abuse Patient Records regulations: The Federal rules restrict any use of the information to criminally investigate or prosecute any alcohol or drug abuse patient.[facility] HospitalIn the event this information is protected by the Federal Confidentiality of Alcohol and Drug Abuse Patient Records regulations: The Federal rules restrict any use of the information to criminally investigate or prosecute any alcohol or drug abuse patient.[facility] HospitalIn the event this information is protected by the Federal Confidentiality of Alcohol and Drug Abuse Patient Records regulations: The Federal rules restrict any use of the information to criminally investigate or prosecute any alcohol or drug abuse patient.[facility] HospitalIn the event this information is protected by the Federal Confidentiality of Alcohol and Drug Abuse Patient Records regulations: The Federal rules restrict any use of the information to criminally investigate or prosecute any alcohol or drug abuse patient.[facility] HospitalIn the event this information is protected by the Federal Confidentiality of Alcohol and Drug Abuse Patient Records regulations: The Federal rules restrict any use of the information to criminally investigate or prosecute any alcohol or drug abuse patient.[facility]In the event this information is protected by the Federal Confidentiality of Alcohol and Drug Abuse Patient Records regulations: The Federal rules restrict any use of the information to criminally investigate or prosecute any alcohol or drug abuse patient.[facility] HospitalIn the event this information is protected by the Federal Confidentiality of Alcohol and Drug Abuse Patient Records regulations: The Federal rules restrict any use of the information to criminally investigate or prosecute any alcohol or drug abuse patient.[facility] HospitalIn the event this information is protected by the Federal Confidentiality of Alcohol and Drug Abuse Patient Records regulations: The Federal rules restrict any use of the information to criminally investigate or prosecute any alcohol or drug abuse patient.[facility] HospitalIn the event this information is protected by the Federal Confidentiality of Alcohol and Drug Abuse Patient Records regulations: The Federal rules restrict any use of the information to criminally investigate or prosecute any alcohol or drug abuse patient.[facility] HospitalIn the event this information is protected by the Federal Confidentiality of Alcohol and Drug Abuse Patient Records regulations: The Federal rules restrict any use of the information to criminally investigate or prosecute any alcohol or drug abuse patient.[facility] HospitalIn the event this information is protected by the Federal Confidentiality of Alcohol and Drug Abuse Patient Records regulations: The Federal rules restrict any use of the information to criminally investigate or prosecute any alcohol or drug abuse patient.[facility] HospitalIn the event this information is protected by the Federal Confidentiality of Alcohol and Drug Abuse Patient Records regulations: The Federal rules restrict any use of the information to criminally investigate or prosecute any alcohol or drug abuse patient.[facility] HospitalIn the event this information is protected by the Federal Confidentiality of Alcohol and Drug Abuse Patient Records regulations: The Federal rules restrict any use of the information to criminally investigate or prosecute any alcohol or drug abuse patient.[facility] HospitalIn the event this information is protected by the Federal Confidentiality of Alcohol and Drug Abuse Patient Records regulations: The Federal rules restrict any use of the information to criminally investigate or prosecute any alcohol or drug abuse patient.[facility] HospitalIn the event this information is protected by the Federal Confidentiality of Alcohol and Drug Abuse Patient Records regulations: The Federal rules restrict any use of the information to criminally investigate or prosecute any alcohol or drug abuse patient.[facility] HospitalIn the event this information is protected by the Federal Confidentiality of Alcohol and Drug Abuse Patient Records regulations: The Federal rules restrict any use of the information to criminally investigate or prosecute any alcohol or drug abuse patient.[facility] HospitalIn the event this information is protected by the Federal Confidentiality of Alcohol and Drug Abuse Patient Records regulations: The Federal rules restrict any use of the information to criminally investigate or prosecute any alcohol or drug abuse patient.[facility] HospitalIn the event this information is protected by the Federal Confidentiality of Alcohol and Drug Abuse Patient Records regulations: The Federal rules restrict any use of the information to criminally investigate or prosecute any alcohol or drug abuse patient.[facility] HospitalIn the event this information is protected by the Federal Confidentiality of Alcohol and Drug Abuse Patient Records regulations: The Federal rules restrict any use of the information to criminally investigate or prosecute any alcohol or drug abuse patient.[facility] HospitalIn the event this information is protected by the Federal Confidentiality of Alcohol and Drug Abuse Patient Records regulations: The Federal rules restrict any use of the information to criminally investigate or prosecute any alcohol or drug abuse patient.[facility] HospitalIn the event this information is protected by the Federal Confidentiality of Alcohol and Drug Abuse Patient Records regulations: The Federal rules restrict any use of the information to criminally investigate or prosecute any alcohol or drug abuse patient.[facility] HospitalIn the event this information is protected by the Federal Confidentiality of Alcohol and Drug Abuse Patient Records regulations: The Federal rules restrict any use of the information to criminally investigate or prosecute any alcohol or drug abuse patient.[facility] HospitalIn the event this information is protected by the Federal Confidentiality of Alcohol and Drug Abuse Patient Records regulations: The Federal rules restrict any use of the information to criminally investigate or prosecute any alcohol or drug abuse patient.[facility] HospitalIn the event this information is protected by the Federal Confidentiality of Alcohol and Drug Abuse Patient Records regulations: The Federal rules restrict any use of the information to criminally investigate or prosecute any alcohol or drug abuse patient.[facility] HospitalIn the event this information is protected by the Federal Confidentiality of Alcohol and Drug Abuse Patient Records regulations: The Federal rules restrict any use of the information to criminally investigate or prosecute any alcohol or drug abuse patient.[facility] HospitalIn the event this information is protected by the Federal Confidentiality of Alcohol and Drug Abuse Patient Records regulations: The Federal rules restrict any use of the information to criminally investigate or prosecute any alcohol or drug abuse patient.[facility] HospitalIn the event this information is protected by the Federal Confidentiality of Alcohol and Drug Abuse Patient Records regulations: The Federal rules restrict any use of the information to criminally investigate or prosecute any alcohol or drug abuse patient.[facility] HospitalIn the event this information is protected by the Federal Confidentiality of Alcohol and Drug Abuse Patient Records regulations: The Federal rules restrict any use of the information to criminally investigate or prosecute any alcohol or drug abuse patient.[facility] HospitalIn the event this information is protected by the Federal Confidentiality of Alcohol and Drug Abuse Patient Records regulations: The Federal rules restrict any use of the information to criminally investigate or prosecute any alcohol or drug abuse patient.[facility] HospitalIn the event this information is protected by the Federal Confidentiality of Alcohol and Drug Abuse Patient Records regulations: The Federal rules restrict any use of the information to criminally investigate or prosecute any alcohol or drug abuse patient.[facility] HospitalIn the event this information is protected by the Federal Confidentiality of Alcohol and Drug Abuse Patient Records regulations: The Federal rules restrict any use of the information to criminally investigate or prosecute any alcohol or drug abuse patient.[facility] HospitalIn the event this information is protected by the Federal Confidentiality of Alcohol and Drug Abuse Patient Records regulations: The Federal rules restrict any use of the information to criminally investigate or prosecute any alcohol or drug abuse patient.[facility] HospitalIn the event this information is protected by the Federal Confidentiality of Alcohol and Drug Abuse Patient Records regulations: The Federal rules restrict any use of the information to criminally investigate or prosecute any alcohol or drug abuse patient.[facility] HospitalIn the event this information is protected by the Federal Confidentiality of Alcohol and Drug Abuse Patient Records regulations: The Federal rules restrict any use of the information to criminally investigate or prosecute any alcohol or drug abuse patient.[facility] HospitalIn the event this information is protected by the Federal Confidentiality of Alcohol and Drug Abuse Patient Records regulations: The Federal rules restrict any use of the information to criminally investigate or prosecute any alcohol or drug abuse patient.[facility] HospitalIn the event this information is protected by the Federal Confidentiality of Alcohol and Drug Abuse Patient Records regulations: The Federal rules restrict any use of the information to criminally investigate or prosecute any alcohol or drug abuse patient.[facility] HospitalIn the event this information is protected by the Federal Confidentiality of Alcohol and Drug Abuse Patient Records regulations: The Federal rules restrict any use of the information to criminally investigate or prosecute any alcohol or drug abuse patient.[facility] HospitalIn the event this information is protected by the Federal Confidentiality of Alcohol and Drug Abuse Patient Records regulations: The Federal rules restrict any use of the information to criminally investigate or prosecute any alcohol or drug abuse patient.[facility] HospitalIn the event this information is protected by the Federal Confidentiality of Alcohol and Drug Abuse Patient Records regulations: The Federal rules restrict any use of the information to criminally investigate or prosecute any alcohol or drug abuse patient.[facility] HospitalIn the event this information is protected by the Federal Confidentiality of Alcohol and Drug Abuse Patient Records regulations: The Federal rules restrict any use of the information to criminally investigate or prosecute any alcohol or drug abuse patient.[facility] HospitalIn the event this information is protected by the Federal Confidentiality of Alcohol and Drug Abuse Patient Records regulations: The Federal rules restrict any use of the information to criminally investigate or prosecute any alcohol or drug abuse patient.[facility] HospitalIn the event this information is protected by the Federal Confidentiality of Alcohol and Drug Abuse Patient Records regulations: The Federal rules restrict any use of the information to criminally investigate or prosecute any alcohol or drug abuse patient.[facility] HospitalIn the event this information is protected by the Federal Confidentiality of Alcohol and Drug Abuse Patient Records regulations: The Federal rules restrict any use of the information to criminally investigate or prosecute any alcohol or drug abuse patient.[facility] HospitalIn the event this information is protected by the Federal Confidentiality of Alcohol and Drug Abuse Patient Records regulations: The Federal rules restrict any use of the information to criminally investigate or prosecute any alcohol or drug abuse patient.[facility] HospitalIn the event this information is protected by the Federal Confidentiality of Alcohol and Drug Abuse Patient Records regulations: The Federal rules restrict any use of the information to criminally investigate or prosecute any alcohol or drug abuse patient.[facility] HospitalIn the event this information is protected by the Federal Confidentiality of Alcohol and Drug Abuse Patient Records regulations: The Federal rules restrict any use of the information to criminally investigate or prosecute any alcohol or drug abuse patient.[facility] HospitalIn the event this information is protected by the Federal Confidentiality of Alcohol and Drug Abuse Patient Records regulations: The Federal rules restrict any use of the information to criminally investigate or prosecute any alcohol or drug abuse patient.[facility] HospitalIn the event this information is protected by the Federal Confidentiality of Alcohol and Drug Abuse Patient Records regulations: The Federal rules restrict any use of the information to criminally investigate or prosecute any alcohol or drug abuse patient.[facility] HospitalIn the event this information is protected by the Federal Confidentiality of Alcohol and Drug Abuse Patient Records regulations: The Federal rules restrict any use of the information to criminally investigate or prosecute any alcohol or drug abuse patient.[facility] HospitalIn the event this information is protected by the Federal Confidentiality of Alcohol and Drug Abuse Patient Records regulations: The Federal rules restrict any use of the information to criminally investigate or prosecute any alcohol or drug abuse patient.[facility] HospitalIn the event this information is protected by the Federal Confidentiality of Alcohol and Drug Abuse Patient Records regulations: The Federal rules restrict any use of the information to criminally investigate or prosecute any alcohol or drug abuse patient.[facility] HospitalIn the event this information is protected by the Federal Confidentiality of Alcohol and Drug Abuse Patient Records regulations: The Federal rules restrict any use of the information to criminally investigate or prosecute any alcohol or drug abuse patient.[facility] HospitalIn the event this information is protected by the Federal Confidentiality of Alcohol and Drug Abuse Patient Records regulations: The Federal rules restrict any use of the information to criminally investigate or prosecute any alcohol or drug abuse patient.[facility] HospitalIn the event this information is protected by the Federal Confidentiality of Alcohol and Drug Abuse Patient Records regulations: The Federal rules restrict any use of the information to criminally investigate or prosecute any alcohol or drug abuse patient.[facility] HospitalIn the event this information is protected by the Federal Confidentiality of Alcohol and Drug Abuse Patient Records regulations: The Federal rules restrict any use of the information to criminally investigate or prosecute any alcohol or drug abuse patient.[facility] ClinicIn the event this information is protected by the Federal Confidentiality of Alcohol and Drug Abuse Patient Records regulations: The Federal rules restrict any use of the information to criminally investigate or prosecute any alcohol or drug abuse patient.[facility] HospitalIn the event this information is protected by the Federal Confidentiality of Alcohol and Drug Abuse Patient Records regulations: The Federal rules restrict any use of the information to criminally investigate or prosecute any alcohol or drug abuse patient.[facility] HospitalIn the event this information is protected by the Federal Confidentiality of Alcohol and Drug Abuse Patient Records regulations: The Federal rules restrict any use of the information to criminally investigate or prosecute any alcohol or drug abuse patient.[facility] HospitalIn the event this information is protected by the Federal Confidentiality of Alcohol and Drug Abuse Patient Records regulations: The Federal rules restrict any use of the information to criminally investigate or prosecute any alcohol or drug abuse patient.[facility] HospitalIn the event this information is protected by the Federal Confidentiality of Alcohol and Drug Abuse Patient Records regulations: The Federal rules restrict any use of the information to criminally investigate or prosecute any alcohol or drug abuse patient.[facility] HospitalIn the event this information is protected by the Federal Confidentiality of Alcohol and Drug Abuse Patient Records regulations: The Federal rules restrict any use of the information to criminally investigate or prosecute any alcohol or drug abuse patient.[facility] HospitalIn the event this information is protected by the Federal Confidentiality of Alcohol and Drug Abuse Patient Records regulations: The Federal rules restrict any use of the information to criminally investigate or prosecute any alcohol or drug abuse patient.[facility] HospitalIn the event this information is protected by the Federal Confidentiality of Alcohol and Drug Abuse Patient Records regulations: The Federal rules restrict any use of the information to criminally investigate or prosecute any alcohol or drug abuse patient.[facility] HospitalIn the event this information is protected by the Federal Confidentiality of Alcohol and Drug Abuse Patient Records regulations: The Federal rules restrict any use of the information to criminally investigate or prosecute any alcohol or drug abuse patient.[facility] HospitalIn the event this information is protected by the Federal Confidentiality of Alcohol and Drug Abuse Patient Records regulations: The Federal rules restrict any use of the information to criminally investigate or prosecute any alcohol or drug abuse patient.[facility] HospitalIn the event this information is protected by the Federal Confidentiality of Alcohol and Drug Abuse Patient Records regulations: The Federal rules restrict any use of the information to criminally investigate or prosecute any alcohol or drug abuse patient.[facility] HospitalIn the event this information is protected by the Federal Confidentiality of Alcohol and Drug Abuse Patient Records regulations: The Federal rules restrict any use of the information to criminally investigate or prosecute any alcohol or drug abuse patient.[facility] HospitalIn the event this information is protected by the Federal Confidentiality of Alcohol and Drug Abuse Patient Records regulations: The Federal rules restrict any use of the information to criminally investigate or prosecute any alcohol or drug abuse patient.[facility] HospitalIn the event this information is protected by the Federal Confidentiality of Alcohol and Drug Abuse Patient Records regulations: The Federal rules restrict any use of the information to criminally investigate or prosecute any alcohol or drug abuse patient.[facility] HospitalIn the event this information is protected by the Federal Confidentiality of Alcohol and Drug Abuse Patient Records regulations: The Federal rules restrict any use of the information to criminally investigate or prosecute any alcohol or drug abuse patient.[facility] HospitalIn the event this information is protected by the Federal Confidentiality of Alcohol and Drug Abuse Patient Records regulations: The Federal rules restrict any use of the information to criminally investigate or prosecute any alcohol or drug abuse patient.[facility] HospitalIn the event this information is protected by the Federal Confidentiality of Alcohol and Drug Abuse Patient Records regulations: The Federal rules restrict any use of the information to criminally investigate or prosecute any alcohol or drug abuse patient.[facility] HospitalIn the event this information is protected by the Federal Confidentiality of Alcohol and Drug Abuse Patient Records regulations: The Federal rules restrict any use of the information to criminally investigate or prosecute any alcohol or drug abuse patient.[facility] HospitalIn the event this information is protected by the Federal Confidentiality of Alcohol and Drug Abuse Patient Records regulations: The Federal rules restrict any use of the information to criminally investigate or prosecute any alcohol or drug abuse patient.[facility] HospitalIn the event this information is protected by the Federal Confidentiality of Alcohol and Drug Abuse Patient Records regulations: The Federal rules restrict any use of the information to criminally investigate or prosecute any alcohol or drug abuse patient.[facility] HospitalIn the event this information is protected by the Federal Confidentiality of Alcohol and Drug Abuse Patient Records regulations: The Federal rules restrict any use of the information to criminally investigate or prosecute any alcohol or drug abuse patient.[facility] HospitalIn the event this information is protected by the Federal Confidentiality of Alcohol and Drug Abuse Patient Records regulations: The Federal rules restrict any use of the information to criminally investigate or prosecute any alcohol or drug abuse patient.[facility] HospitalIn the event this information is protected by the Federal Confidentiality of Alcohol and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
[2024-06-05 12:21] LABS: ALB/GLOB Ratio 0.8 RATIO (0.9-2.4); AST(SGOT) 19 U/L (15-37); Alanine Aminotransfer ALT/SGPT 29 U/L (13-56); Albumin, Serum 3.3 g/dL (3.2-5.0); Alkaline Phosphatase 190 U/L (45-117); Anion Gap 3 (5-15); BUN 12 mg/dL (7-18); BUN/Creat Ratio 15.8 RATIO (10-20); Calcium,Total 9.1 mg/dL (8.5-10.1); Chloride 105 mmol/L (98-107); Creatinine, Serum 0.76 mg/dL (0.55-1.02); EST Glomerular Filtration Rate 84 mL/min (>60); Est Glom Filt Rate - Afr Amer 102 mL/min (>60); Estimated Creatinine Clearance 108.66 ml/min; Globulin 4.2 g/dL (2.2-4.2); Glucose 106 mg/dL (74-106); Lipase 20 U/L (13-75); Potassium 4.3 mmol/L (3.5-5.1); Protein, Total 7.5 g/dL (6.4-8.2); Sodium Level 136 mmol/L (136-145)
[2024-06-05 13:06] LABS: Mucous, Urine 0 SEEN /hpf (<or=2+); Red Blood Cells-Urine 0 SEEN /hpf (0-5); White Blood Cells 0 SEEN /hpf (0-5)
[2024-06-05 13:08] LABS: Color, Urine Yellow (Yellow); Glucose, Dipstick Normal (Normal); Ketone-Dipstick Negative (Negative); Leukocyte Esterase-Dipstick 25 /ul (Negative); Nitrite-Dipstick Negative (Negative); Occult Blood-Urine Negative /ul (Negative); Protein-Dipstick Negative (Negative); Urine Clarity Clear (Clear); Urine Urobilinogen Normal (Normal); Urine pH 6.5 (5.0 - 8.0)
[2024-06-05 13:10] LABS: Urine Bilirubin Dipstick 1 mg/dL (Negative)
[2024-06-05 13:23] VITALS: BP 132/76; PULSE 78; RESP 14; O2SAT 98
[2024-06-05] MEDS: proCHLORPERazine 10 MG/2 ML Vial 5 MG IV (13:26)
[2024-06-05] MEDS: DiphenhydrAMINE 50 MG/ML Syringe 25 MG IV (13:26)
[2024-06-05 13:51] LABS: Bacteria 3+ /hpf (None Seen); Calcium Oxalate Crystals Ur RARE /hpf (<or=2+); Squamous Epithelial Cells - UA 0-5 SEEN /hpf (5-10)
== END 2024-06-05 15:04 | disposition home or self-care (01) ==
PROVIDERS: Emergency Provider Emergency Medicine; PCP Internal Medicine; Visit Provider Emergency Medicine
DX: R51.9 Headache, unspecified (principal); F31.9 Bipolar disorder, unspecified; R10.9 Unspecified abdominal pain; E86.0 Dehydration; R11.2 Nausea with vomiting, unspecified; F17.210 Nicotine dependence, cigarettes, uncomplicated
CPT/HCPCS: 70450; 74176; 80053; 81001; 83690; 85027; 93005; 96374; 96375; 99283; A4216

== ENCOUNTER → 2024-07-26 | Outpatient (CLI) | payer MEDICAID, SELFPAY ==
--- NOTE | 2024-07-26 14:42 | BI_ITS ---
MAMMOGRAPHY - BILATERAL DIAGNOSTIC REASON FOR EXAM: Female, 54 years old. Right axillary lump. PERTINENT HISTORY: Non-contributory. TECHNIQUE: Digital bilateral breast tiffanie (3D mammographic acquisition) in the CC and MLO projections. 2-D mediolateral oblique (MLO) and craniocaudad (CC) views of both breasts were obtained. CAD: Full Field Digital Mammography with Computer Added Detection was performed. COMPARISON: Comparison is made with prior study dated May 15, 2023. FINDINGS: Breast Composition: There are scattered areas of fibroglandular density. There are no dominant masses or suspicious calcifications. Stable bilateral fat containing axillary lymph nodes. No other significant abnormalities are identified. There has been no significant change since the prior study. BI/DIAG MAMM W/CAD, BILAT IMPRESSION: Stable bilateral diagnostic mammogram. With the patient''s history of a palpable lump in the right axilla, correlation with ultrasound recommended. ASSESSMENT CATEGORY: BIRADS Category 0: Incomplete. Need additional imaging evaluation. A letter regarding these results will be sent to the patient by the facility within 30 days. Approximately 10% of breast cancers are not detected by mammography. A normal mammogram should not delay biopsy of a clinically suspicious abnormality. Electronically Signed: Artur Tong MD at 8:38 EST ,
== END | disposition home or self-care (01) ==
LOC: OPBI 14:41
PROVIDERS: PCP Internal Medicine; Referring Provider Obstetrics & Gynecology; Visit Provider Obstetrics & Gynecology
DX: N63.10 Unspecified lump in the right breast, unspecified quadrant (principal)
CPT/HCPCS: 77062; 77066; G0279